=== PATIENT | male | born 1960 | race Caucasian/White ===

== ENCOUNTER 2020-10-04 11:10 | Emergency (ER) | payer MEDICARE, MEDICAID, SELFPAY ==
[2020-10-04 11:11] VITALS: BP 211/117; PULSE 83; RESP 21; TEMP 36.5; O2SAT 98; BMI 28.8
--- NOTE | 2020-10-04 11:13 | RAD_ITS ---
STUDY: X-RAY CHEST REASON FOR EXAM: Male, 59 years old. NEURO DEFICIT, STROKE TECHNIQUE: Single AP portable view of the chest. COMPARISON: 12/31/2013 FINDINGS: The lungs are clear and expanded. There is no demonstrated pleural abnormality. Normal size heart. Normal mediastinum and timothy. Normal visualized pulmonary arteries. Normal visualized aortic arch and descending thoracic aorta. Normal visualized thoracic spine. Normal visualized ribs, clavicles, and shoulders. There is no demonstrated abnormality of the visualized soft tissue structures of the upper abdomen. RAD/Chest 1 View IMPRESSION: Normal x-ray examination of the chest. Electronically Signed: Kyler Friend DO at 12:19 EST Tel , Service support ,
--- NOTE | 2020-10-04 11:13 | EKG12_ITS ---
Test Reason : STROKE Blood Pressure : / mmHG Vent. Rate : 077 BPM Atrial Rate : 077 BPM P-R Int : 142 ms QRS Dur : 090 ms QT Int : 402 ms P-R-T Axes : 042 063 067 degrees QTc Int : 454 ms Normal sinus rhythm Normal ECG Confirmed by NATALIE DURÁN, MATT ([id number]), newspaper or periodical editor [employer] ([id number]) on 10/07/2020 10:32:26 AM Referred By: ZAKIA Confirmed By:MATT ESTRADA MD
--- NOTE | 2020-10-04 11:13 | CT_ITS ---
STUDY: CT HEAD STROKE PROTOCOL W/O CONTRAST INJECTION REASON FOR EXAM: Male, 59 years old. CVA, RT SIDED WEAKNESS, APHASIA, HTN RADIATION DOSAGE (If Supplied By Facility): CTDIvol = ( 44.99 ) mGy, DLP = ( 796.11 ) mGycm TECHNIQUE: Transaxial CT imaging of the brain was performed without administration of intravenous contrast material. Individualized dose optimization techniques were used for this CT. COMPARISON: No relevant priors. FINDINGS: Acute intraparenchymal hemorrhage in the region of the left basal ganglia measuring 3.3 x 2.1 cm. No evidence of significant mass effect or midline shift at this time. Surrounding parenchymal edema is noted. No evidence of uncal herniation. Otherwise, moderate chronic emotional changes of the brain with chronic microvascular ischemic change. CT/STROKE Brain/Head without Cont IMPRESSION: Acute area of intraparenchymal hemorrhage in the left basal ganglia as above. No evidence of mass effect or midline shift. Remainder as above. N.B. : The above information has been verbally conveyed by Kyler Friend DO to Katiana Jara MD, on 10/04/2020 11:30:27 (ET). Electronically Signed: Kyler Friend DO at 11:32 EST Tel , Service support ,
--- NOTE | 2020-10-04 11:18 | ED.DCSUM_ITS ---
History of Present Illness Chief Complaint: Neuro S/Sx Informant: Family, Manager Business Planning Onset: Today Narrative: Patient presents via EMS for stroke symptoms. Patient reportedly was in the bathroom when he yelled out for his son. When the son arrived he noted that the patient had difficulty speaking and was not using his right side. He was lowered to the ground. Daughter who was at bedside states that as far she knows he was last seen normal last evening. He has a history of throat cancer currently in remission. He is a history of hepatitis C and hypertension. Daughter states he has not been taking his blood pressure medications for quite some time. - Past Medical History (1) Hypertension Status: Chronic (2) Hepatitis C Status: Chronic Past Medical History - Allergies and Home Meds Allergies/Adverse Reactions: Allergies No Known Allergies Allergy (Verified 10/04/20 11:11) Primary Care Physician: Care Physician,No Primary [Primary Care Provider] - Surgical History: no surgical history Smoking Status: Current every day smoker Review of Systems ROS: Unable to Obtain STROKE General: Well nourished, Well developed, Unkempt ENT: Moist mucous membranes Neck: Supple Cardiovascular: Regular rate, Regular rhythm Respiratory: No distress, CTA bilaterally Abdomen: Soft, Nontender Neurological: Alert, - - Patient does have right-sided facial droop noted. Right arm and right leg are flaccid. He is unable to follow commands to squeeze hands. He is alert and looking about the room. Diagnostic/Tx/Re-eval Impressions Brain CT 10/04/20 11:13 IMPRESSION: Acute area of intraparenchymal hemorrhage in the left basal ganglia as above. No evidence of mass effect or midline shift. Remainder as above. N.B. : The above information has been verbally conveyed by Kyler Friend DO to Katiana Jara MD, on 10/04/2020 11:30:27 (ET). Electronically Signed: Kyler Friend DO at 11:32 EST Tel , Service support , 10/04/20 11:13 Chest 1 View [RAD] Stat STROKE Brain/Head without Cont [CT] Stat Laboratory Results 10/04/20 10/04/20 11:00 11:00 WBC 7.4 RBC 4.68 Hgb 14.6 Hct 42.1 MCV 90.0 MCH 31.2 MCHC 34.7 RDW Std Deviation 42.2 RDW Coeff of Terell 12.8 MPV 13.5 H Immature Gran % (Auto) 0.500 Neut % (Auto) 61.5 Lymph % (Auto) 23.8 [place] % (Auto) 8.7 Eos % (Auto) 5.1 H Baso % (Auto) 0.4 Absolute Neuts (auto) 4.6 Absolute Lymphs (auto) 1.77 Nucleated RBC % 0 PT 14.2 INR 1.2 APTT 45.6 H - EKG Initial EKG Interpretation: Sinus Rhythm - Sinus at 77 with no acute ischemia. - Medical Decision Making Stroke Team Activated: Yes IV Alteplase (t-PA) Administered: No - Hemorrhagic stroke Patient was met in the ambulance bay and quick evaluation was undertaken. Patient was sent immediately to CT scan. CT does reveal an approximately 3 x 1.8 cm bleed in the left parietal parenchyma. Lateral ventricles appear open at this time. Patient's blood pressure is currently 211/117 and labetalol has been ordered. [facility] neurologist evaluated the patient briefly on the computer. When I told her the patient was a hemorrhagic stroke she did immediately accept patient for transfer. Daughter at bedside agreed for transport to [facility]. Due to weather no air transportation is available. Ground crew is currently in route for critical care transport. Patient was given labetalol for blood pressure most recent systolic blood pressure was in the 170s. Critical care time (excluding procedures): 30-74 minutes ED Disposition - Plan for ED Patient: Disposition: [facility] Diagnosis: Hemorrhagic stroke Referrals: Care Physician,No Primary [Primary Care Provider] -
[2020-10-04] MEDS: Labetalol (Prefilled) 20 MG/4 ML IV (11:23)
[2020-10-04 11:25] VITALS: O2SAT 99
[2020-10-04 11:25] LABS: Absolute Lymphocyte Count 1.77 X10^3/uL (0.83-4.51); Absolute Neutrophil Count 4.6 X10^3/uL (2.0-7.7); Basophil# 0.03 X10^3/uL; Basophil% 0.4 % (0-1); Eosinophil# 0.38 X10^3/uL; Eosinophils% 5.1 % (0-5); Hematocrit 42.1 % (40-54); Hemoglobin 14.6 g/dL (13.0-16.5); Lymphocyte # 1.77 X10^3/ul (4.0); Lymphocyte % 23.8 % (19-41); Mean Corp Hgb Conc 34.7 g/dL (32-36); Mean Corpuscular Hgb 31.2 pg (27.0-32.0); Mean Platelet Vol. 13.5 fl (6.2-12.0); Monocyte# 0.65 X10^3/uL; Monocyte% 8.7 % (0-10); NRBC Flagged by Analyzer 0 % (0-5); Neutrophil # 4.56 X10^3/uL (2.7-7.7); Neutrophil % 61.5 % (47-70); POSITIVE COUNT YES; RBC Distribution Width CV 12.8 % (11.6-14.6); RBC Distribution Width SD 42.2 fl (35.1-43.9); Red Blood Count 4.68 M/mm3 (4.6-6.2); White Blood Count 7.4 K/mm3 (4.4-11.0)
[2020-10-04 11:31] LABS: Differential Indicated SCAN CRITERIA MET
[2020-10-04 11:32] VITALS: BP 180/101; PULSE 72; RESP 21; O2SAT 99
[2020-10-04 11:32] LABS: Platelet Count 49 K/mm3 (150-450)
[2020-10-04 11:33] LABS: International Normalized Ratio 1.2; Partial Thromboplast Time 45.6 Seconds (24.1-36.2); Prothrombin Time (Protime)PT. 14.2 SECONDS (11.7-14.9)
[2020-10-04 11:41] LABS: Anion Gap 6 (5-15); BUN 23 mg/dL (7-18); BUN/Creat Ratio 21.1 RATIO (10-20); Calcium,Total 8.9 mg/dL (8.5-10.1); Chloride 105 mmol/L (98-107); Creatinine, Serum 1.09 mg/dL (0.70-1.30); EST Glomerular Filtration Rate 73 mL/min (>60); Est Glom Filt Rate - Afr Amer 89 mL/min (>60); Estimated Creatinine Clearance 76.76 ml/min; Glucose 84 mg/dL (74-106); Potassium 3.7 mmol/L (3.5-5.1); Sodium Level 137 mmol/L (136-145)
[2020-10-04] MEDS: hydrALAZINE 20 MG/ML Vial IV ×2 (11:43→11:56)
[2020-10-04 11:46] LABS: Differential Comment SCANNED; Platelet Estimate MKD DEC (ADEQ); Platelet Morphology LARGE
[2020-10-04 11:51] VITALS: O2SAT 99
[2020-10-04 12:02] VITALS: BP 168/106; PULSE 76; RESP 18; O2SAT 100
[2020-10-04 12:13] VITALS: BP 152/86; BP 168/106; PULSE 75; PULSE 76; RESP 16; RESP 17; O2SAT 99
[2020-10-04 12:26] VITALS: BMI 28.8
--- NOTE | 2020-10-04 12:37 | ED.RN ---
No report needed per the [facility] stroke line.
[2020-10-05 13:37] LABS: Pathologist Review Reviewed
== END 2020-10-04 12:26 | disposition short-term general hospital (02) ==
PROVIDERS: Emergency Provider Emergency Medicine
DX: I61.6 Nontraumatic intracerebral hemorrhage, multiple localized (principal); F17.200 Nicotine dependence, unspecified, uncomplicated
CPT/HCPCS: 70450; 71045; 80048; 84484; 85025; 85610; 85730; 93005; 99285; J7030; A4216

== ENCOUNTER 2020-10-21 10:00 | Outpatient (RCR) | payer MEDICARE, MEDICAID, SELFPAY ==
--- NOTE | 2020-10-16 12:48 | HP.OTEVAL_ITS ---
Patient's Visit Information AGUSTIN BARCLAY Jr. is a 59 year old M, referred to Occupational Therapy by TENISHA PADILLA, with a diagnosis of CVA. Date of Evaluation: 10/15/20 Occupational Therapist: Callie Whelan, RAF/Cynthia, CHT - Subjective This 59 year old male was seen for OT eval with dx of CVA. 2019 pt suffered a CVA. Pt states pt lost hearing during episode- lost communication and sensation on right side. pts states he spent 4 days in Hospital in [place]. pt has gained momory, and LE strength. pts states he goes from crying to being angery. pt is on disability for about 5 years due to throat cancer. pt is right handed. pt and family lives in two story home with first floor set-up. steps to get in home with hand rails. pt has bath and pt is ind. with ADLs bathing and dressing, does grooming. pts states pt sleeps during the day and up at night- pts is home with him is currently not w orking. pts states pt is cooking and doing with supervision due to frquency of dropping objects. Wifes concerns are with hearing and return of pts strength for pt to return to IND and so she doesnt have to supervise him during ADLs and IADLS. - ADLs Miscellaneous: Use cell phone, Unlock front door, Open medication bottle, Handle money (change), Hold change, Open envelope, Write, Shuffle cards, Open doors/Including car door, Operate spray bottle - Strength Shoulder: right 4/5 left 5/5 Elbow: right 4/5 left 5/5 Forearm: right 4/5 left 5/5 Weir Fisherman: right 40# left 70# Lateral Pinch: right 12# left 14# Tripod Pinch: right 8# left 10# - Sensation Stereognosis: Normal - Right, Normal - Left Kinesthesia: Abnormal - Right, Normal - Left Proprioception: Abnormal - Right, Normal - Left - Nine Hole Peg Right: 48.31 Left: 28.66 Comments: limited right - In-Hand Manipulation Finger to Palm Translation: Moderate - Right, Normal - Left Palm to Finger Translation: Moderate - Right, Normal - Left Shift: Moderate - Right, Normal - Left - DASH-Disabilities of Arm, Shoulder& Hand DASH Sum: 18 - Quick DASH-Disab of Arm,Shoulder& Hand Quick DASH Score: 68.3325 - Goals Goal:: Pt will demo a increase in MMT of right UE to 5/5 to increase pts ind with ADLs and IADLs by d.c. pt will demo a increase in right sales floor team leader strength to 65# or greater to increase pts ind. with ADLs and IADLS by d/c Goal:: pt will demo the ability to manipulate fasteners ind. and manipulate coins in and out of hand ind. by d.c. pt will demo the ability to write name legibly 4/5 trials by d/c Goal:: pt and family will demo understanding of sensory stimulation to increase pts feeling/sensation of right side of his body by end of 3rd visit. - Rehabilitation General Assessment: pt demo with a weakness in right UE limiting functional strength that limits pts ind with ADls and IADLS. Pt would benefit from skilled OT services 2x week for 4 weeks to increase pts functionals strength to return to PLOF. Today theapist used as speaker for pt as he is not verbalizing and writing as pt lost hearing from stroke. Therapist ed. pt and pts on sensory stimulation to right side of body to encourage return of rigt sided sensation. both pt and pts agree to POC. Rehabilitation Potential: Good - Anticipated Interventions Strengthening, Sensory Retraining, Ergonomic Education, Neuro Reeducation, Sensory Stimulation, Caregiver Training, Home Program - Visit Plan Frequency: 2x /Week Duration: 4 Weeks General Plan: initiate PRE with gym eq. and free wts. ed, in HEP TEXT: Thank you for the opportunity to evaluate your patient. For Medicare and Medicare HMO plans, please review the plan of care and approve it. It will need to be FAXED BACK to us at [phone] for Medicare purposes. Please let me know if there are questions or concerns regarding this plan of care. Physician Signature: Date:
--- NOTE | 2020-10-21 09:54 | HP.PTEVAL ---
Patient's Visit Information AGUSTIN BARCLAY Jr. is a 59 year old M referred to Physical Therapy by TENISHA PADILLA with a diagnosis of L BG ICH. Date of Evaluation: 10/21/20 Physical Therapist: Denis Hickey, SUZANNE, OCS, CSCS - Visit Plan Frequency: 2x /Week Duration: 4-6 Weeks Plan: pt cannot hear due to his stroke adn will need visual demonstrations or written instructions for each activity in therapy. 2x/week for 4 weeks to work on Stability with gait due to R proprioception deficits from stroke. Walk outdoors and on uneven surfaces as able , pt is aware that he will be doing this and should dress appropriately, also may do foam balance and ec balance and gait indoors. Recommended based on speech therapy instruction to see ENT with floorwalker to see if speech therapy would be appropriate adn written info given for to ask doctor when he sees them next week. - Subjective present. Woke up 2.5 weeks ago on Monday morning and son was present. walking to bathroom he called for Son and pt sunk to floor. Needed help to get to bathroom. Seemed paralyzed on right side. Called 911, Went to ER and was nonresponsive in hospital until showed up and then wanted to go home. Ambulance to [facility] and went to ICU for 3 days, then to brain leung and home on Thanks day . Started to get feeling adn movement back in R arm and leg at that time. He has lost his hearing and cannot hear much but she thinks it is slightly improving. Walked out of hospital on that . Currently he is doing good moving around, taking bath by himself, bathroom by himself. Main problem is cannot hear, he has started talking again. Communication is main problem. says he is 85% back to normal in mobility. He has always had a limp. He loves to walk and just is not as fast as he used to be. Has steps at home but does not need to do them and has not done them. Has some steps into house with rail and does them without a problem. He is on disability 6 years from throat cancer. Now in a remission. Spends day making canes, working around house, makes handes for knives. Has started in the last few days getting interested in that. goes with him on short walks which he can do but does not let him take dog on long one hour walks which is typical for him. gives all this info as he is not verbally communicative. No more foot dragging which was happening. - Objective Pt is quiet adn nonverbal today, communicates with him loudly and he pays attention. He follows my directions when demonstrated but cannot seem to hear me even when I talk loudly. Walks back 250 feet to [facility] room I with slight L limp and slow but steady. says no falls and no AD needed. Trasnfers I. Steps reciprocal with one rail I. foam stance is challenging for patient but romberg is 30 eo adn ec. Need to demonstrate all items on FGA to get him to do them due to hearing but he does score well on this test but 4 to 5 points low for his age. LE AROM WFL, some tightness B in HS and quads but symmetrical. Sensation seems to deficit on R side vs L as best I can communicate with him. Strength is 4 on both LE R and L knees and hips except ankles which is 4- R and 4 on L. Able to heel raise and walk on heels strengthwise easily. Coordination hard to test due to communication deficit. reflexes 2/3 patella and achilles. - Balance Scores Functional Gait Assessment Score: 24 % Disability: 20.0000 - Goals Goal 1:: FGA to diminish fall risk Goal Time Frame: 4-6 Weeks Goal 2:: Walk dog outside for 30 minutes around [place] and safely. Goal Time Frame: 4-6 Weeks - Rehabilitation Potential Physical Therapy Diagnosis: CVA Rehabilitation Potential: Fair - Anticipated Interventions Patient/Client Instruction: Educate patient on: Condition, Plan of Care For the Purpose of:: To increase tolerance to activity/condition/position, To improve gait and locomotor functions Therapeutic Exercise to Include: Balance training, Gait and locomotor training For the Purpose of:: To increase tolerance to activity/condition/position, To improve gait and locomotor functions Thank you for the opportunity to evaluate your patient. For Medicare and Medicare HMO plans, please review the plan of care and approve it. It will need to be FAXED BACK to us at [phone] for Medicare purposes. For Medicare only, by signing this I certify the plan of care. Please let me know if there are questions or concerns regarding this plan of care. Physician Signature: Date:
--- NOTE | 2020-11-16 09:13 | HP.OTDCNRP_ITS ---
AGUSTIN Marielos BARCLAY Jr. was seen in my office for initial evaluation on 10/15/20. The following Plan of Care was established for this patient: Initial Frequency: 2x /Week Initial Duration: 4 Weeks Plan: cont POC Anticipated Interventions: Strengthening, Sensory Retraining, Ergonomic E ducation, Neuro Reeducation, Sensory Stimulation, Caregiver Training, Home Program This patient was last seen in our office 10/21/20. Pertinent comments regarding their Occupational therapy will appear below: pt was seen for 2 OT visits followed with three No Show apts. pt d/c at this time due to non attendance. At this point I will be discontinuing this patient from occupational therapy. I would be happy to see this patient again in the future if found appropriate by the physician. Thank you! Callie Whelan, OTR/L, CHT
== END 2020-10-21 19:00 | disposition home or self-care (01) ==
LOC: OT 10:00
DX: I61.9 Nontraumatic intracerebral hemorrhage, unspecified (principal)
CPT/HCPCS: 97110; 97163; 97166

== ENCOUNTER 2021-08-23 17:44 | Emergency (ER) | payer MEDICARE, MEDICAID, SELFPAY ==
[2021-08-23 17:45] VITALS: BP 182/116; PULSE 85; RESP 16; TEMP 36.2; O2SAT 99; BMI 26.3
[2021-08-23] MEDS: Diphth,Pertuss(Acell),Tet Vac 0.5 ML Vial IM (19:21)
[2021-08-23] MEDS: Amox/Clavulanate 875 MG Tablet PO (19:21)
--- NOTE | 2021-08-23 19:22 | CM.ED ---
CHRISSIE Note Referral Source: Case Find Referral Reason: No Primary Care Physicans CHRISSIE reviewed chart and noted that patient had no primary care physician. SW provided patient with [facility] Physician Directory. No further concerns or complaints voiced. Harriet ORO
--- NOTE | 2021-08-23 19:29 | EX.ED.DYSGE1 ---
HPI History of Present Illness Chief Complaint: Bite Narrative Narrative: Patient is a 60-year-old male brought in secondary to dog bite to his bilateral forearm. The patient had a previous stroke and cannot speak. His father reports that the dog bite occurred from his own dog and that this occurred approximately 2 hours prior to arrival. They state his tetanus status is not updated and secondary to the dog bite they have concerned he will need tetanus as well as prophylactic antibiotics and presents for evaluation [facility] Medical History CVA (cerebral vascular accident) Home Medications NK 10/04/20 [History Last Taken Unknown] amoxicillin-pot clavulanate [Augmentin] 1 tab PO BID #20 tab 08/23/21 [Rx Last Taken Unknown] Allergy/AdvReac Type Severity Reaction Status Date / Time No Known Allergies Allergy Verified 08/23/21 19:25 Social History Smoking Status: Current every day smoker tobacco type: cigarettes ROS ROS ED Constitutional Constitutional ED: Denies chills or fever(s) ENT ENT ED: Reports sore throat Cardiovascular Cardiovascular: Denies chest pain Respiratory/Chest Respiratory/Chest: Denies cough or dyspnea Gastrointestinal Gastrointestinal: Denies abdominal pain, diarrhea, nausea or vomiting Genitourinary Genitourinary ED: Denies dysuria Musculoskeletal Musculoskeletal: Denies myalgias Integumentary Reports other Details: Positive dog bite Neurologic Neurologic: Denies paresthesias Hematologic/Lymphatic Hematologic/Lymphatic: Denies easy bleeding or easy bruising EXAM Physical Exam Const Vital Signs: 08/23/21 17:45 08/23/21 20:04 Temperature 97.1 F L Temperature Source Temporal Pulse Rate 85 72 Respiratory Rate 16 Blood Pressure 182/116 H 201/117 H Blood Pressure Mean 138 Pulse Ox 99 Oxygen Delivery Method Room Air Positive well nourished and well developed General Appearance ED: well developed Eyes PERRL and EOMs intact bilaterally Neck supple Resp normal respiratory effort and clear to auscultation bilaterally Cardio regular rate and regular rhythm Extremity Extremity Narrative: Bilateral upper extremities are neurovascularly intact; AIN/PIN are intact and normal. To the dorsal aspect of the distal forearm bilaterally there is 1/2 cm puncture wound consistent with dog bite. There is minimal ooze of blood and no foreign body. There is mild soft tissue swelling at the sites without secondary changes to suggest overt infection. No physical exam findings to suggest ligamentous or tendon damage. Neuro CN's II-XII intact bilaterally Sensorium / Orientation: alert Motor Exam: strength 5/5 throughout Psych mental status grossly normal Skin Skin Narrative: Soft tissue changes to the bilateral forearms as documented above MDM MDM MDM Narrative Medical decision making narrative: Patient presented to the ER with dog bites to his right and left forearm. The dog bites are small in nature and showed no signs of acute secondary infection or ligamentous or tendon damage. Therefore there is no need for imaging or laboratory studies. Also as the dog is his own there is no need for rabies prophylaxis. Patient has tetanus status updated and was started on Augmentin and is otherwise safe for discharge Discharge Plan Triage Chief Complaint: Bite ED Provider: Samir Guido Dx/Rx/DC Orders Clinical Impression: Dog bite Instructions: ED Dog Bite Prescriptions: New amoxicillin-pot clavulanate [Augmentin] 875-125 mg tablet 1 tab PO BID Qty: 20 RF: 0 No Action NK RF: 0 Primary Care Provider: Care Physician,No Primary Referrals: Lisa Barnes MD [STAFF PHYSICIAN] - 3-5 Days if not improving Care Physician,No Primary [Primary Care Provider] - Disposition Disposition: Home, Self Care Discharge Date/Time: 08/23/21 20:15
[2021-08-23] MEDS: COVID-19 VAC,AD26(JANSSEN)/PF 0.5 ML SYRINGE IM (20:01)
[2021-08-23 20:04] VITALS: BP 201/117; PULSE 72
[2021-08-23] MEDS: cloNIDine HCl 0.2 MG Tablet PO (20:14)
--- NOTE | 2021-08-23 20:15 | ED.RN ---
no reaction to COVID vaccine noted in ED.
--- NOTE | 2021-08-25 02:40 | ED.RN ---
inderjit HRO requesting address gave to registration for police report
== END 2021-08-23 20:15 | disposition home or self-care (01) ==
PROVIDERS: Emergency Provider Emergency Medicine
DX: S51.852A Open bite of left forearm, initial encounter (principal); S51.851A Open bite of right forearm, initial encounter; F17.210 Nicotine dependence, cigarettes, uncomplicated; W54.0XXA Bitten by dog, initial encounter; Z86.73 Personal history of transient ischemic attack (TIA), and cerebral infarction without residual deficits; Z23 Encounter for immunization
CPT/HCPCS: 90471; 90715; 91303; 99283

== ENCOUNTER 2021-08-25 22:25 | Emergency (ER) | payer MEDICARE, MEDICAID, SELFPAY ==
[2021-08-25 22:26] VITALS: BP 138/90; PULSE 74; RESP 18; TEMP 36.1; O2SAT 95; BMI 25.0
== END 2021-08-25 22:52 | disposition left against medical advice (07) ==
LOC: ED 23:03
DX: Z53.21 Procedure and treatment not carried out due to patient leaving prior to being seen by health care provider (principal)

== ENCOUNTER → 2022-07-04 | Outpatient (CLI) | payer MEDICARE, MEDICAID, SELFPAY ==
[2022-07-04 17:55] LABS: Absolute Lymphocyte Count 1.67 X10^3/uL (0.83-4.51); Absolute Neutrophil Count 3.5 X10^3/uL (2.0-7.7); Basophil# 0.03 X10^3/uL; Basophil% 0.5 % (0-1); Eosinophil# 0.15 X10^3/uL; Eosinophils% 2.6 % (0-5); Hematocrit 43.1 % (40-54); Hemoglobin 14.6 g/dL (13.0-16.5); Lymphocyte # 1.67 X10^3/ul (0.83-4.51); Lymphocyte % 28.7 % (19-41); Mean Corp Hgb Conc 33.9 g/dL (32-36); Mean Corpuscular Volume 91.5 fL (80-94); Mean Platelet Vol. 14.7 fl (6.2-12.0); Monocyte# 0.48 X10^3/uL; Monocyte% 8.3 % (0-10); NRBC Flagged by Analyzer 0 % (0-5); Neutrophil # 3.45 X10^3/uL (2.7-7.7); Neutrophil % 59.4 % (47-70); POSITIVE COUNT YES; RBC Distribution Width SD 43.7 fl (35.1-43.9); Red Blood Count 4.71 M/mm3 (4.6-6.2); White Blood Count 5.8 K/mm3 (4.4-11.0)
[2022-07-04 18:17] LABS: Anion Gap 5 (5-15); BUN 26 mg/dL (7-18); Calcium,Total 9.1 mg/dL (8.5-10.1); Chloride 106 mmol/L (98-107); Creatinine, Serum 1.18 mg/dL (0.70-1.30); EST Glomerular Filtration Rate 66 mL/min (>60); Est Glom Filt Rate - Afr Amer 80 mL/min (>60); Glucose 102 mg/dL (74-106); PSA,Total - Annual Screen 0.86 ng/mL (0.00-4.00); Potassium 4.4 mmol/L (3.5-5.1); Sodium Level 138 mmol/L (136-145)
[2022-07-04 18:22] LABS: Differential Indicated SCAN CRITERIA MET; Platelet Count 50 K/mm3 (150-450)
[2022-07-04 18:31] LABS: Anisocytosis RARE; Macrocytosis RARE; Platelet Estimate MKD DEC (ADEQ); Red Cell Morphology N CHROM NORMAL (NORM C&C)
[2022-07-06 10:17] LABS: Pathologist Review Reviewed
== END | disposition home or self-care (01) ==
LOC: MFPLAB 16:35
PROVIDERS: Visit Provider Family Medicine
DX: Z00.00 Encounter for general adult medical examination without abnormal findings (principal); N41.9 Inflammatory disease of prostate, unspecified; Z12.5 Encounter for screening for malignant neoplasm of prostate
CPT/HCPCS: 36415; 80048; 84153; 85025; G0103

== ENCOUNTER → 2022-07-21 | Outpatient (CLI) | payer MEDICARE, MEDICAID, SELFPAY ==
[2022-07-21] VITALS (10 sets, daily range): BP systolic 128–194; BP diastolic 60–108; PULSE 51–64; RESP 14–21; TEMP 36.4; O2SAT 97–100; BMI 24.7
--- NOTE | 2022-07-21 | BMB_PTH ---
PATIENT: AGUSTIN BARCLAY Jr. LOC: CT U#:[id number] AGE/SX: 61/M ROOM: RE07/21/[address]: Dr. Kita Barboza MD : 1960 BED: DIS: 07/21/2022 SPEC #: [id number] RECD: 07/21/22 10:40 STATUS: BRENDEN MAREN #: [id number] AMALIA: 07/21/22 00:[address]: Kita Barboza DEPT: BONE MARROW RECD BY: Vera Beyer ENTERED: 07/21/22 10:41 SP TYPE: BMB CATERINA DR: Rosalinda Primary Care Phys Tissues: A - Bone marrow, NOS B - Bone marrow, NOS C - Bone marrow, NOS Procedures: Decalcification bone/plaque Bone Marrow Aspiration Bone Marrow Core Biopsy Iron Stain Bone Marrow HEADER OPERATION: Bone marrow biopsy and aspiration, right hip PRE-OP DIAGNOSIS: Thrombocytopenia TISSUE SUBMITTED: A - Core, B - Clot, C - Smears, and send outs (flow, cytogenetics and MDS) BONE MARROW DIAGNOSIS Bone marrow core, clot and aspirate smears: Negative for involvement by leukemia or lymphoma. See comment. Margaux 07/25/2022 COMMENT Bone marrow core and clot biopsy are nondiagnostic. Aspirate smears show hemodilution and show erythroid and myeloid cells and megakaryocytes. Significant dysplastic changes are not seen. Flow cytometry study from [facility] shows no evidence of acute leukemia or increased blasts. No evidence of an abnormal myeloid population. Abnormities associated with myelodysplasia and myeloproliferative neoplasms are absent. No evidence of B-cell lymphoma or atypical T-cell population. No evidence of monocytosis. The complete report is viewable in patient?s EMR. Cytogenetic studies are pending at this time. Clinical correlation and appropriate follow up are necessary. BONE MARROW STUDY Slides are reviewed. CBC DATE: 07/21/2022 WBC 6.5K; RBC 4.85; HGB 14.8; HCT 43.7; MCV 90.1; RDW 12.8; PLTS 59,000 SEGS 54.6%; LYMPHS 32.6%; MONOS 8.8%; EOS 3.5%; BASOS 0.3% PERIPHERAL SMEAR: Submitted. RBC: Normocytic and normochromic. WBC: Unremarkable. The WBC count is compatible to as reported above. PLTS: Thrombocytopenia. BONE MARROW ASPIRATE DIFFERENTIAL: 200 cell count. Blasts % (normal 0-2): 0 Promyelocytes % (normal 1-5): 0 Myelocytes and metamyelocytes % (normal 17-41): 15 Bands and Segs % (normal 15-32): 52 Eos % (normal 1-6): 5 Basos % (normal 0-1): 0 Monocytes % (normal 0-4): 3 Erythroid Precursors % (normal 17-35): 13 Lymphocytes % (normal 7-13): 12 Plasma Cells % (normal 0-2): 0 ASPIRATE FINDINGS: Site: Not specified Aspicular, Cellular M/E ratio: 5.5 (Normal 1.5-4.0) Megakaryocytes: Present and normal morphology. Erythropoiesis: Normoblastic. Granulopoiesis: Progressive and unremarkable. Comment: The smears show hemodilution. Above may not be accurate due to hemodilution. Significant dysplastic changes are not seen. CORE BIOPSY FINDINGS: Site: Not specified Comment: No bone marrow core or hematopoietic elements are noted. ASPIRATE CLOT FINDINGS: Site: Not specified Comment: The specimen entirely consists peripheral blood. Hematopoietic cells are not seen. Minute fragments of cortical bone is noted. SPECIAL STAINS WITH MATCHED CONTROLS: Iron: Absent Reticulin: Not applicable. PAS: Highlights myeloid cells and megakaryocytes. BONE MARROW GROSS A - Received is a container labeled with the patient's name and designated bone marrow. The specimen consists of a scant amount of soft tissue. The specimen is totally submitted for cell block preparation. B - Received labeled with the patient's name and designated bone marrow is a specimen that consists of approximately 8 ml of bloody fluid that on filtration yields multiple minute fragments of blood clots measuring in aggregate 3 x 2.5 x 0.2 cm. The specimen is totally submitted in one cassette. C - Also received are 15 unstained and 1 peripheral stained slides. The unstained slides are submitted for appropriate staining. Also received is one green top tube which is sent to our reference lab for flow, cytogenetics and MDS. / SJ:hiral 07/21/2022 TC:5 CPT: 51886, 86491, 07858 x2, 93132 x1, 65595 ADDENDUM ADDENDUM ADDENDUM ADDENDUM ADDENDUM ADDENDUM ADDENDUM ADDENDUM ADDENDUM ADDENDUM ADDENDUM ADDENDUM ADDENDUM ADDENDUM ADDENDUM ADDENDUM 08/02/2022 09:21 ADDENDUM 08/02/2022 09:21 ADDENDUM 08/02/2022 09:21 ADDENDUM 08/02/2022 09:21 ADDENDUM 08/02/2022 09:21 CYTOGENETICS REPORT FROM [facility] INTERPRETATION: A normal male chromosome complement was observed in twenty metaphases analyzed. 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 No evidence of deletion of 5q or monosomy 5. 2. No evidence of monosomy 7 or deletion of 7q. 3. No evidence of trisomy 8 (+8). 4. No evidence of deletion of 20q12. Please see complete report in e-chart or EMR
--- NOTE | 2022-07-21 08:21 | CT_ITS ---
PROCEDURE: CT GUIDED BONE marrow biopsy and aspiration. DATE: 07/21/2022. INDICATION: Male, 61 years old. Thrombocytopenia. PHYSICIAN: Asher Sawyer M.D. RADIATION DOSAGE (If Supplied By Facility): CTDIvol = ( 15 ) mGy, DLP = ( 238.84 ) mGycm. Individualized dose optimization techniques were utilized. PROCEDURE: The risks, benefits, and alternatives to the procedure were explained to the patient. The specific risk of hemorrhage requiring further treatment or intervention was detailed and accepted. Follow-up instructions were discussed with the patient as well. Written informed consent was obtained. The patient was brought into the CT suite and placed in the prone position. . An appropriate entry site was identified. The overlying skin was prepped and draped in the usual sterile fashion. 1% lidocaine was administered subcutaneously for local anesthesia. Conscious sedation was performed. The patient received 2 mg of VERSED and 50 mcg of FENTANYL intravenously. Conscious sedation was started at 9:32 AM and terminated at 9:48 AM. The patient was independently monitored by the department nurse. Under CT guidance, a bone marrow biopsy and aspiration of the posterior right iliac bone were performed utilizing an 11-gauge bone marrow biopsy needle system. The specimens were then placed in the appropriate fluid and transported to the laboratory for analysis. Hemostasis was obtained. The patient tolerated the procedure well without immediate complications. CT/Biopsy/Inj or Needle Placement IMPRESSION: Successful CT guided bone marrow biopsy and bone marrow aspiration of the posterior right iliac bone, as described above. Conscious sedation protocol was followed. Electronically Signed: Asher Sawyer MD at 10:05 EDT ,
[2022-07-21 08:27] LABS: Absolute Lymphocyte Count 2.12 X10^3/uL (0.83-4.51); Absolute Neutrophil Count 3.6 X10^3/uL (2.0-7.7); Basophil# 0.02 X10^3/uL; Basophil% 0.3 % (0-1); Eosinophil# 0.23 X10^3/uL; Eosinophils% 3.5 % (0-5); Hematocrit 43.7 % (40-54); Hemoglobin 14.8 g/dL (13.0-16.5); Lymphocyte # 2.12 X10^3/ul (0.83-4.51); Lymphocyte % 32.6 % (19-41); Mean Corp Hgb Conc 33.9 g/dL (32-36); Mean Corpuscular Hgb 30.5 pg (27.0-32.0); Mean Corpuscular Volume 90.1 fL (80-94); Mean Platelet Vol. 12.4 fl (6.2-12.0); Monocyte# 0.57 X10^3/uL; Monocyte% 8.8 % (0-10); NRBC Flagged by Analyzer 0 % (0-5); Neutrophil # 3.55 X10^3/uL (2.7-7.7); Neutrophil % 54.6 % (47-70); POSITIVE COUNT YES; Platelet Count 59 K/mm3 (150-450); RBC Distribution Width CV 12.8 % (11.6-14.6); RBC Distribution Width SD 41.8 fl (35.1-43.9); Red Blood Count 4.85 M/mm3 (4.6-6.2); White Blood Count 6.5 K/mm3 (4.4-11.0)
[2022-07-21 08:39] LABS: Prothrombin Time (Protime)PT. 13.2 SECONDS (11.7-14.9)
[2022-07-21 08:40] LABS: Partial Thromboplast Time 36.1 Seconds (24.1-36.2)
[2022-07-21] MEDS: fentaNYL 100 MCG/2 ML Ampul IV (09:28)
[2022-07-21] MEDS: Midazolam 2 MG/2 ML Syringe IV ×2 (09:31→09:40)
[2022-07-21] MEDS: Lidocaine 2% (10 ml mdv) 10 ML Vial INFILT (09:32)
== END | disposition home or self-care (01) ==
PROVIDERS: Referring Provider Internal Medicine Hematology & Oncology; Visit Provider Internal Medicine Hematology & Oncology
DX: Z01.812 Encounter for preprocedural laboratory examination (principal); D69.6 Thrombocytopenia, unspecified; R10.11 Right upper quadrant pain
CPT/HCPCS: 38222; 36415; 77012; 85025; 85610; 85730; 88305; 88311; 88313; 99156; J7050; A4216

== ENCOUNTER → 2023-05-05 | Outpatient (CLI) | payer MEDICARE, MEDICAID, SELFPAY ==
[2023-05-05 15:32] LABS: Absolute Neutrophil Count 4.4 X10^3/uL (2.0-7.7); Basophil# 0.03 X10^3/uL; Basophil% 0.4 % (0-1); Eosinophil# 0.16 X10^3/uL; Eosinophils% 2.3 % (0-5); Hematocrit 45.6 % (40-54); Lymphocyte % 24.5 % (19-41); Mean Corp Hgb Conc 32.9 g/dL (32-36); Mean Corpuscular Hgb 29.9 pg (27.0-32.0); Mean Corpuscular Volume 90.8 fL (80-94); Mean Platelet Vol. 14.5 fl (6.2-12.0); Monocyte# 0.62 X10^3/uL; Monocyte% 8.9 % (0-10); NRBC Flagged by Analyzer 0 % (0-5); Neutrophil # 4.39 X10^3/uL (2.7-7.7); Neutrophil % 63.5 % (47-70); POSITIVE COUNT YES; Platelet Count 55 K/mm3 (150-450); RBC Distribution Width SD 42.7 fl (35.1-43.9); Red Blood Count 5.02 M/mm3 (4.6-6.2); White Blood Count 6.9 K/mm3 (4.4-11.0)
[2023-05-05 15:47] LABS: ALB/GLOB Ratio 0.8 RATIO (0.9-2.4); AST(SGOT) 18 U/L (15-37); Alanine Aminotransfer ALT/SGPT 38 U/L (16-61); Albumin, Serum 3.4 g/dL (3.2-5.0); Alkaline Phosphatase 61 U/L (45-117); Anion Gap 5 (5-15); BUN 20 mg/dL (7-18); BUN/Creat Ratio 16.5 RATIO (10-20); Calcium,Total 8.7 mg/dL (8.5-10.1); Chloride 108 mmol/L (98-107); Creatinine, Serum 1.21 mg/dL (0.70-1.30); EST Glomerular Filtration Rate 64 mL/min (>60); Est Glom Filt Rate - Afr Amer 78 mL/min (>60); Globulin 4.2 g/dL (2.2-4.2); Glucose 101 mg/dL (74-106); Potassium 4.4 mmol/L (3.5-5.1); Protein, Total 7.6 g/dL (6.4-8.2); Sodium Level 138 mmol/L (136-145)
[2023-05-05 15:59] LABS: Differential Indicated SCAN CRITERIA MET
[2023-05-05 16:31] LABS: Differential Comment SCANNED
[2023-05-08 20:07] LABS: HCV Quant. RNA PCR 194000 IU/mL (.); HCV log 10 5.288 (.)
== END | disposition home or self-care (01) ==
LOC: MFPLAB 12:19
PROVIDERS: PCP Family Medicine; Visit Provider Family Medicine
DX: D69.6 Thrombocytopenia, unspecified (principal); B19.20 Unspecified viral hepatitis C without hepatic coma
CPT/HCPCS: 36415; 80053; 85025; 87522

== ENCOUNTER 2023-06-28 10:15 | Emergency (ER) | payer MEDICARE, MEDICAID, SELFPAY ==
[2023-06-28 10:16] VITALS: BP 183/123; PULSE 81; RESP 14; TEMP 36.6; O2SAT 98
--- NOTE | 2023-06-28 10:28 | EX.ED.DYSGE1 ---
HPI History of Present Illness Chief Complaint: Lower Extremity Injury [facility] Medical History CVA (cerebral vascular accident) Fractures Hypertension Neck fracture Peripheral neuropathy Smoker Throat cancer Thrombocytopenia Home Medications sildenafil 50 mg tablet (Viagra) 50 mg PO DAILY PRN 07/08/22 [History Last Taken Unknown] gabapentin 300 mg capsule 300 mg PO DAILY 07/13/22 [History Last Taken 07/20/22 20:00] lisinopril 40 mg tablet 40 mg PO DAILY 07/13/22 [History Last Taken 07/21/22 07:00] melatonin 3 mg tablet 3 mg PO QHS PRN sleep 07/13/22 [History Last Taken Unknown] Allergy/AdvReac Type Severity Reaction Status Date / Time No Known Allergies Allergy Verified 06/28/23 10:15 Family History Grandmother Hypertension maternal Grandfather Hypertension paternal CVA (cerebral vascular accident) paternal Social History household members: spouse number of children: 5 current occupational status: disabled Smoking Status: Current every day smoker tobacco type: cigarettes Tobacco: How many years used: 30 alcohol intake: current alcohol intake frequency: 3 or more drinks per day Alcohol type: beer and hard liquor substance use type: marijuana EXAM Physical Exam Const Vital Signs: 06/28/23 10:16 Temperature 98 F Temperature Source Temporal Pulse Rate 81 Respiratory Rate 14 Blood Pressure 183/123 H Blood Pressure Mean 143 Pulse Ox 98 Oxygen Delivery Method Room Air [facility] [place] Narrative Medical decision making narrative: HISTORY OF PRESENT ILLNESS: 62-year-old male here with right leg pain. The patient is coming by his father provides majority history given patient's history of stroke. He states there is no fall or trauma however patient complained of right leg pain that started today. No complaint of new focal weakness or loss sensation today. REVIEW OF SYSTEMS: Pertinent positives: Leg pain Pertinent negatives: Fall, new loss of sensation, PHYSICAL EXAM: Nursing triage notes reviewed, Vital signs reviewed Constitutional: please see mdm Lungs: Clear to auscultation, No wheezing or rales. No increased work of breathing, no conversational dyspnea, no accessory muscle use, no nasal flaring. No respiratory distress noted Heart: Regular rate and rhythm, No murmurs, No rubs and No gallops, 2+ distal pulses (radial, femoral, posterior tibial) in all extremities Abdomen: Soft, there is no tenderness, rigidity, rebound or guarding, no obvious peritoneal signs, no palpable pulsatile abdominal masses, no auscultated abdominal bruit : No CVAT Back: No midline step-offs deformities tenderness or rashes noted Extremities: No edema, no obvious joint erythema, edema, intact range of motion in ankle knee and hip. TTP with internal hip rotation and hip flexion. No TTP over greater trochanter. Compartments are soft. Neuro: Intact sensation L1-S1 dermatomal distributions. Intact 5/5 strength in hip flexion (T12-L3). Knee extension (L2-L4). Ankle dorsiflexion (L4-L5). Ankle plantar flexion (S1). Great toe extension (L5). 2+ patellar and Achilles DTRs. Skin: No rash or lesions noted, no crepitus or bullae noted MEDICAL DECISION MAKING: Chief Complaint: Leg pain External records reviewed: No recent advanced imaging of the involved extremity Factors affecting care: Hypertension, peripheral neuropathy ALL IMAGES (IF OBTAINED) HAVE BEEN PERSONALLY REVIEWED AND INTERPRETED BY MYSELF. MDM Narrative: Patient was hemodynamically stable (hypertension noted), afebrile, nontoxic-appearing. I considered the following differential diagnosis: Fracture, dislocation, bony contusion, septic arthritis, arterial occlusion. Exam consistent right hip pathology with pain with internal rotation and flexion. Obtained x-ray to rule out fracture dislocation of the right hip. X-ray was negative. X-ray was remarkable for evidence of femoral acetabular impingement. This will be treated with NSAIDs and close orthopedic follow-up for evaluation and further management. No clinical evidence of septic arthritis or arterial occlusion at this time. No evidence of fracture or dislocation. The patient and/or family, caregivers express understanding. The patient and/or family, caregivers agrees with the plan. Shared decision making: I will have a discussion with the patient and or visitors regarding risk/benefits of further testing or admission. They will be made aware of of the risk/benefits inherent in this decision they will be given the opportunity to voice understanding. Total critical care time today provided was at least 0 minutes. This excludes separately billable procedures. Critical care time (if documented) is secondary to the patient having high probability of clinically significant/life threatening deterioration in the patient's condition which required my urgent intervention. Radiography Diagnostic Testing: Clinical Impression(s) from Imaging Studies Hip/Pelvis X-Ray 06/28/23 10:51 IMPRESSION: Findings suggestive of a right femoral acetabular impingement. Electronically Signed: Asher Sawyer MD at 11:13 EDT , Discharge Plan Triage Chief Complaint: Lower Extremity Injury ED Provider: Paresh Portillo Dx/Rx/DC Orders Clinical Impression: Femoral acetabular impingement Instructions: ED Hip Strain Prescriptions: No Action sildenafil [Viagra] 50 mg tablet 50 mg PO DAILY PRN Rx Instructions: administer 30 minutes to 4 hours before activity gabapentin 300 mg capsule 300 mg PO DAILY Patient Comments: TAKE 1 CAPSULE BY MOUTH AT BEDTIME FOR MUSCLE SPASMS FROM STROKE lisinopril 40 mg tablet 40 mg PO DAILY Patient Comments: TAKE 1 TABLET BY MOUTH DAILY melatonin 3 mg tablet 3 mg PO QHS PRN (Reason: sleep) Patient Comments: TAKE 1 TABLET AT SUPPER AND AT BEDTIME Primary Care Provider: Sandro Zuniga Referrals: Warren Vieyra DO [Med Staff - Active Staff] - Sandro Zuniga MD [Primary Care Provider] - Activity Restrictions/Additional Instructions: Thank you for trusting us with your care today! Please take Tylenol (2 pills, 650 mg), ibuprofen (2 pills, 400 mg) every 6 hours as needed for pain and fever control. Please return to the emergency department if your symptoms change or worsen. Specifically if develop worsening pain, if you cannot ambulate, if you fall, if you lose consciousness. Please follow with your primary care physician for further outpatient evaluation and management. Disposition Disposition: Home, Self Care
[2023-06-28] MEDS: Oxycodone/Apap 5/325 Tablet PO (10:41)
[2023-06-28] MEDS: Ibuprofen 200 MG Tablet 400 MG PO (10:42)
--- NOTE | 2023-06-28 10:51 | RAD_ITS ---
STUDY: X-RAY - PELVIS AND RIGHT HIP REASON FOR EXAM: Male, 62 years old. Right hip pain TECHNIQUE: 3 views of the pelvis and hip. COMPARISON: None. FINDINGS: There is a non-specific bowel gas pattern. Normal visualized soft tissue structures. Normal bilateral iliac wings, sacroiliac joints and visualized sacrum. Normal bilateral superior and inferior pubic rami. Normal pubic symphysis. Normal bilateral ischial tuberosities. Findings suggestive of right femoral acetabular impingement. Normal acetabulum. There is mild articular joint space narrowing of the hip. RAD/HIP, UNI W/ Pelvis 2-3 Views IMPRESSION: Findings suggestive of a right femoral acetabular impingement. Electronically Signed: Asher Sawyer MD at 11:13 EDT ,
[2023-06-28 11:44] VITALS: BMI 23.3
== END 2023-06-28 11:44 | disposition home or self-care (01) ==
PROVIDERS: Emergency Provider Emergency Medicine; PCP Family Medicine; Visit Provider Emergency Medicine
DX: M25.851 Other specified joint disorders, right hip (principal); F17.210 Nicotine dependence, cigarettes, uncomplicated; F12.90 Cannabis use, unspecified, uncomplicated; Z86.73 Personal history of transient ischemic attack (TIA), and cerebral infarction without residual deficits
CPT/HCPCS: 73502; 99283

== ENCOUNTER 2024-04-19 16:02 | Emergency (ER) | payer MEDICARE, MEDICAID, SELFPAY ==
[2024-04-19 16:04] VITALS: BP 206/116; BP 216/122; PULSE 74; PULSE 75; RESP 14; TEMP 35.7; O2SAT 96; O2SAT 98
--- NOTE | 2024-04-19 16:12 | CT_ITS ---
STUDY: CT BRAIN WITHOUT CONTRAST REASON FOR EXAM: Male, 63 years old. Acute change in mental status RADIATION DOSAGE (If Supplied By Facility): CTDIvol = ( 44.99 ) mGy, DLP = ( 796.11 ) mGycm TECHNIQUE: Transaxial CT imaging of the brain was performed without administration of intravenous contrast material. Individualized dose optimization techniques were used for this CT. COMPARISON: No relevant priors. FINDINGS: Normal soft tissue structures. Normal calvarium. Normal size ventricles and extra-axial spaces for the patient''s age. Bilateral white matter microangiopathic ischemic changes of the cerebral hemispheres. Probable old infarct in the right basal ganglia. Normal thalami. Normal brainstem. Normal cerebellum. There is no intracranial hemorrhage. There are no findings of an acute ischemic infarction. Normal visualized paranasal sinuses. CT/Brain/Head without Contrast IMPRESSION: Age-related and chronic changes of the brain. Electronically Signed: Hussain Calvin DO at 16:58 EDT ,
--- NOTE | 2024-04-19 16:13 | EKG12_ITS ---
Test Reason : NEURO Blood Pressure : / mmHG Vent. Rate : 073 BPM Atrial Rate : 073 BPM P-R Int : 142 ms QRS Dur : 088 ms QT Int : 396 ms P-R-T Axes : 037 053 065 degrees QTc Int : 436 ms Normal sinus rhythm Normal ECG Confirmed by NATALIE DURÁN, MATT ([id number]), editor managing director PATRICIA DE LOS SANTOS ([id number]) on 04/22/2024 8:35:48 AM Referred By: Confirmed By:MATT ESTRADA MD
[2024-04-19 16:22] VITALS: BMI 25.9
[2024-04-19 16:39] LABS: Absolute Lymphocyte Count 1.78 X10^3/uL (0.83-4.51); Absolute Neutrophil Count 4.4 X10^3/uL (2.0-7.7); Basophil# 0.03 X10^3/uL; Basophil% 0.4 % (0-1); Eosinophil# 0.15 X10^3/uL; Eosinophils% 2.1 % (0-5); Hematocrit 48.8 % (40-54); Hemoglobin 16.3 g/dL (13.0-16.5); Lymphocyte # 1.78 X10^3/ul (0.83-4.51); Mean Corp Hgb Conc 33.4 g/dL (32-36); Mean Corpuscular Hgb 29.2 pg (27.0-32.0); Mean Corpuscular Volume 87.3 fL (80-94); Mean Platelet Vol. 13.5 fl (6.2-12.0); Monocyte# 0.72 X10^3/uL; Monocyte% 10.1 % (0-10); NRBC Flagged by Analyzer 0 % (0-5); Neutrophil % 61.8 % (47-70); POSITIVE COUNT YES; RBC Distribution Width CV 13.4 % (11.6-14.6); RBC Distribution Width SD 42.7 fl (35.1-43.9); Red Blood Count 5.59 M/mm3 (4.6-6.2); White Blood Count 7.1 K/mm3 (4.4-11.0)
[2024-04-19 16:43] LABS: Bedside Glucose 83 mg/dL (74-106)
[2024-04-19 16:55] LABS: ALB/GLOB Ratio 0.8 RATIO (0.9-2.4); AST(SGOT) 24 U/L (15-37); Alanine Aminotransfer ALT/SGPT 42 U/L (16-61); Albumin, Serum 3.9 g/dL (3.2-5.0); Alkaline Phosphatase 80 U/L (45-117); Anion Gap 6 (5-15); BUN 23 mg/dL (7-18); BUN/Creat Ratio 17.2 RATIO (10-20); Chloride 102 mmol/L (98-107); Creatinine, Serum 1.34 mg/dL (0.70-1.30); EST Glomerular Filtration Rate 57 mL/min (>60); Est Glom Filt Rate - Afr Amer 69 mL/min (>60); Estimated Creatinine Clearance 62.94 ml/min; Globulin 4.9 g/dL (2.2-4.2); Glucose 91 mg/dL (74-106); Potassium 4.2 mmol/L (3.5-5.1); Protein, Total 8.8 g/dL (6.4-8.2); Sodium Level 136 mmol/L (136-145)
[2024-04-19 17:05] VITALS: BMI 25.9
[2024-04-19 17:10] LABS: Differential Indicated SCAN CRITERIA MET; Platelet Count 49 K/mm3 (150-450)
--- NOTE | 2024-04-19 17:10 | ED.RN ---
PLATELETS [address]. DR ANN
[2024-04-19 17:12] LABS: Anisocytosis RARE; Platelet Estimate MKD DEC (ADEQ); Red Cell Morphology N CHROM NORMAL (NORM C&C)
--- NOTE | 2024-04-19 17:15 | EDS_ITS ---
HPI History of Present Illness Chief Complaint: Neuro S/Sx Detail of Chief Complaint: Confusion, not himself per family member Informant: patient and family Onset/Context/Timing Onset: Today Context: Sudden Onset (Last known normal at approximately noon.) Timing: Continuous Quality: Not his normal self Location: Uncertain Current Severity: He essentially is at baseline. Maximum Severity: Apparently he was not responsive. There was no seizure activity. Worsened by: Possibly hypertension and no medication for 1 week Relieved by: Nothing Associated Symptoms Associated Symptoms: Possibly a blank stare Narrative Narrative: Patient is a 63-year-old gentleman. He has history of hepatitis, thrombocytopenia, peripheral neuropathy, hypertension and ED who was brought to the emergency room because he was not his normal self. This was first noted at noon. I was asked to evaluate patient in the triage area for possible stroke. Speech and speech is no different than baseline. It is slow. Patient is had a prior stroke. He denies headache. Nuys double vision blurred vision loss of vision. Denies slurring of his words or trouble getting words out. Denies chest pain, pressure tightness heaviness. He denies shortness of breath. He dyspnea dyspnea exertion Denies abdominal pain, nausea, vomiting or diarrhea. He denies dysuria, freque ncy, urgency or hematuria. According to his relative he was discharged from his primary care office at [place], Dr. Sandro Zuniga. He was discharged because he has missed 3 appointments. He has been out of his blood pressure medication for a week. Prior similar symptoms: No Recent Illness/Hospitalization: No [facility] Medical History Smoker Thrombocytopenia Peripheral neuropathy Fractures Neck fracture Throat cancer CVA (cerebral vascular accident) Hypertension Home Medications ?Medication ?Instructions ?Recorded ?Last Taken ?Type sildenafil 50 mg tablet (Viagra) 50 mg PO DAILY PRN 07/08/22 Unknown History gabapentin 300 mg capsule 300 mg PO DAILY 07/13/22 07/20/22 20:00 History lisinopril 40 mg tablet 40 mg PO DAILY 07/13/22 07/21/22 07:00 History melatonin 3 mg tablet 3 mg PO QHS PRN sleep 07/13/22 Unknown History lisinopril 20 mg tablet 20 mg PO DAILY #30 tabs 04/19/24 Unknown Rx Allergy/AdvReac Type Severity Reaction Status Date / Time No Known Allergies Allergy Verified 04/19/24 16:05 Family History Grandmother Hypertension maternal Grandfather Hypertension paternal CVA (cerebral vascular accident) paternal Social History household members: spouse number of children: 5 current occupational status: disabled Smoking Status: Current every day smoker tobacco type: cigarettes Tobacco: How many years used: 30 alcohol intake: current alcohol intake frequency: 3 or more drinks per day Alcohol type: beer and hard liquor substance use type: marijuana ROS ROS ED Constitutional Constitutional ED: Denies chills, fever(s), subjective or sweats Eyes Eyes: Denies blurry vision, change in vision or diplopia ENT ENT ED: Denies ear pain, rhinorrhea or sore throat Cardiovascular Cardiovascular: Denies chest pain, orthopnea, palpitations, paroxysmal nocturnal dyspnea or racing heartbeat Respiratory/Chest Respiratory/Chest: Denies cough, dyspnea, dyspnea on exertion, orthopnea or paroxysmal nocturnal dyspnea Gastrointestinal Gastrointestinal: Denies abdominal pain, diarrhea, nausea or vomiting Genitourinary Genitourinary ED: Denies dysuria, hematuria or urinary frequency Musculoskeletal Musculoskeletal: Denies arthralgias or myalgias Integumentary Denies abscess, Abrasions or rash Neurologic Neurologic: Reports weakness; Denies headache(s) or paresthesias Endocrine Endocrinology: Denies cold intolerance or heat intolerance Hematologic/Lymphatic Hematologic/Lymphatic: Reports systems reviewed and no addt'l complaints, except as documented EXAM Physical Exam Const Vital Signs: 04/19/24 16:04 04/19/24 16:04 04/19/24 17:20 Temperature 96.3 F L Temperature Source Temporal Pulse Rate 74 75 69 Respiratory Rate 14 14 Blood Pressure 216/122 H 206/116 H 190/122 H Blood Pressure Mean 153 146 144 Pulse Ox 96 98 Oxygen Delivery Method Room Air Room Air 04/19/24 17:35 04/19/24 18:00 Temperature Temperature Source Pulse Rate 66 73 Respiratory Rate 16 Blood Pressure 181/98 H 157/98 H Blood Pressure Mean 125 117 Pulse Ox Oxygen Delivery Method Positive well nourished Constitutional Narrative: Patient looks older than reported age. General Appearance ED: NAD; Negative for pallor HEENT Reports moist mucous membranes HEENT Narrative: Ears normal. Nares patent. Posterior pharynx is normal. Uvula is midline. No deviation with protrusion. Eyes PERRL and EOMs intact bilaterally Eyes Narrative: There is no nystagmus. There is no visual field cut. General Eye ED: Negative for pale conjunctiva or scleral icterus Neck no lymphadenopathy, supple and no JVD Neck Narrative: There are no carotid bruits. Chest Wall inspection of chest normal and palpation of chest normal Resp normal respiratory effort and clear to auscultation bilaterally Cardio regular rate, regular rhythm, S1 normal heart sound, S2 normal heart sound and no murmurs GI normal to inspection, nondistended, normoactive bowel sounds, non-tender, non- distended and no masses; Negative for hepatosplenomegaly Back/Spine no CVA tenderness Back/Spine Narrative: Inspection of the back is normal. Extremity normal to inspection General Extremety ED: Negative for edema General Extremity: Negative for edema Neuro oriented x3 and CN's II-XII intact bilaterally Neuro Narrative: Patient is awake. He is at his baseline. Psych mental status grossly normal Attitude: No agitated Mood & Affect: Negative for depressed Skin no rashes or lesions noted, no wounds and skin turgor normal General Skin Exam: Negative for jaundice or pallor MDM MDM MDM Narrative Medical decision making narrative: Patient has markedly elevated blood pressure. This may represent hypertensive emergency. With history of prior stroke and staring he may have had an absence seizure. Will obtain appropriate blood work to assess for endorgan dysfunction. CT was obtained to rule out intracranial bleed. His blood pressure was elevated on 2 different readings. He was treated with IV enalapril. Lab Data Attestation: I reviewed the patient's lab results. Lab results narrative: CBC is remarkable thrombocytopenia. Patient is at his baseline. Creatinine is slightly elevated from baseline. Creatinine is 1.34 with an estimated GFR 57. Total protein is elevated, which it has been in the past. Labs are compared to prior. There is no significant change in his creatinine. Therefore will discharge to home with prescription for lisinopril 20 mg. Labs: Laboratory Results - last 24 hr 04/19/24 16:25 WBC 7.1 RBC 5.59 Hgb 16.3 Hct 48.8 MCV 87.3 MCH 29.2 MCHC 33.4 RDW Std Deviation 42.7 RDW Coeff of Terell 13.4 Plt Count 49 L* MPV 13.5 H Immature Gran % (Auto) 0.600 Neut % (Auto) 61.8 Lymph % (Auto) 25.0 Nelson % (Auto) 10.1 H Eos % (Auto) 2.1 Baso % (Auto) 0.4 Absolute Neuts (auto) 4.4 Absolute Lymphs (auto) 1.78 Nucleated RBC % 0 Differential Comment SEE COMMENT Diff Path Review May foll Platelet Estimate MKD DEC RBC Morphology N CHROM Anisocytosis RARE Sodium 136 Potassium 4.2 Chloride 102 Carbon Dioxide 28.0 Anion Gap 6 BUN 23 H Creatinine 1.34 H Estim Creat Clear Calc 62.94 Est GFR (MDRD) Af Amer 69 Est GFR (MDRD) Non-Af 57 L BUN/Creatinine Ratio 17.2 Glucose 91 Lactic Acid 1.0 Calcium 10.0 Total Bilirubin 0.40 AST 24 ALT 42 Alkaline Phosphatase 80 Total Protein 8.8 H Albumin 3.9 Globulin 4.9 H Albumin/Globulin Ratio 0.8 L POC Glucose 83 Radiography Diagnostic Testing: Clinical Impression(s) from Imaging Studies Brain CT 04/19/24 16:12 IMPRESSION: Age-related and chronic changes of the brain. Electronically Signed: Hussain Calvin DO at 16:58 EDT Reading Location ID and State: [facility] / [place] Tel [phone], Service support , CT was reviewed by me. There is no evidence intracranial bleed, awaiting formal read by radiologist. Treatment and Re-Evaluation :: Patient's blood pressure did respond to the enalapril. His blood pressure now is 165/60. Patient feels better. Patient blood pressure has improved markedly. Will discharge to home on lisinopril. Since he does not have a position he was referred to Dr. Barnes. Discharge Plan Triage Chief Complaint: Neuro S/Sx ED Provider: Maurice Garcias Dx/Rx/DC Orders Clinical Impression: Hypertensive urgency, Peripheral neuropathy, Thrombocytopenia, Creatinine elevation, History of hepatitis C Instructions: ED High Blood Pressure Hypertension Prescriptions: New lisinopril 20 mg tablet 20 mg PO DAILY Qty: 30 0RF No Action sildenafil [Viagra] 50 mg tablet 50 mg PO DAILY PRN Rx Instructions: administer 30 minutes to 4 hours before activity gabapentin 300 mg capsule 300 mg PO DAILY Patient Comments: TAKE 1 CAPSULE BY MOUTH AT BEDTIME FOR MUSCLE SPASMS FROM STROKE HASNT TAKEN IN 1 WEEK lisinopril 40 mg tablet 40 mg PO DAILY Patient Comments: TAKE 1 TABLET BY MOUTH DAILY HASNT TAKEN IN 1 WEEK melatonin 3 mg tablet 3 mg PO QHS PRN (Reason: sleep) Patient Comments: TAKE 1 TABLET AT SUPPER AND AT BEDTIME Primary Care Provider: Sandro Zuniga Referrals: Vikki Barnes MD [Med Staff - Active Staff] - 1 Week Sandro Zuniga MD [Primary Care Provider] - Print Language: Amharic Disposition Disposition: Home, Self Care
[2024-04-19] MEDS: Enalaprilat 1.25 MG/ML Vial IV (17:19)
[2024-04-19 17:20] VITALS: BP 190/122; PULSE 69
[2024-04-19 17:35] VITALS: BP 181/98; PULSE 66
[2024-04-19 18:00] VITALS: BP 157/98; PULSE 73; RESP 16
[2024-04-19 18:12] VITALS: BP 157/98; PULSE 73
[2024-04-19 18:27] VITALS: BP 160/93; PULSE 69; RESP 22; TEMP 36.4; O2SAT 98
[2024-04-22 13:57] LABS: Pathologist Review Reviewed
== END 2024-04-19 18:38 | disposition home or self-care (01) ==
PROVIDERS: Emergency Provider Emergency Medicine; PCP Family Medicine; Visit Provider Emergency Medicine
DX: R41.0 Disorientation, unspecified (principal); I16.0 Hypertensive urgency; G62.9 Polyneuropathy, unspecified; D69.6 Thrombocytopenia, unspecified; Z86.73 Personal history of transient ischemic attack (TIA), and cerebral infarction without residual deficits; F17.210 Nicotine dependence, cigarettes, uncomplicated; I10 Essential (primary) hypertension; R79.89 Other specified abnormal findings of blood chemistry; Z86.19 Personal history of other infectious and parasitic diseases; Z85.89 Personal history of malignant neoplasm of other organs and systems; Z79.899 Other long term (current) drug therapy
CPT/HCPCS: 70450; 80053; 82962; 83605; 85025; 93005; 96374; 99284; A4216

== ENCOUNTER 2024-08-21 16:45 | Observation (INO) | payer MEDICARE, MEDICAID, SELFPAY ==
[2024-08-21] VITALS (17 sets, daily range): BP systolic 102–232; BP diastolic 58–124; PULSE 67–80; RESP 11–24; TEMP 36.2–36.7; O2SAT 95–100; BMI 26.6
--- NOTE | 2024-08-21 16:59 | CT_ITS ---
STUDY: CT ABDOMEN AND PELVIS WITH CONTRAST REASON FOR EXAM: Male, 63 years old. rectal bleeding RADIATION DOSAGE (If Supplied By Facility): CTDIvol = ( 11.09 ) mGy, DLP = ( 1089.83 ) mGycm TECHNIQUE: Transaxial images were obtained from the dome of the diaphragm to the symphysis pubis without oral contrast. IV 100mL Isovue-370 was administered. Sagittal and coronal images were reconstructed. Individualized dose optimization techniques were used for this CT. COMPARISON: August 20, 2015 FINDINGS: Mild atelectasis within the dependent portion OF the lower lobes. The visualized portions of the heart are within normal limits. Small hiatal hernia is noted Mild nonspecific fatty infiltrated liver. There is a small cyst in the caudate lobe. Bile ducts are not dilated. Normal gallbladder and extrahepatic biliary system. Normal spleen. Normal pancreas. Normal bilateral adrenal glands. Normal right kidney. Normal left kidney. Concentric thickening of the kennedy of stomach which may be consistent with nonspecific gastritis.. Normal small intestine. Mild diverticular disease of the distal descending and sigmoid colon without evidence for acute diverticulitis. The appendix is visualized and appears normal. Atherosclerotic changes of the aorta without evidence for aneurysm. Normal inferior vena cava. Normal retroperitoneum. Normal urinary bladder. Normal abdominal wall. Lumbar spine demonstrates degenerative changes. CT/Abdomen/Pelvis W IV Cont ONLY IMPRESSION: Mild nonspecific fatty infiltrated liver.. Findings which may be consistent with nonspecific gastritis.. Diverticular disease of the colon without evidence for acute diverticulitis No definitive site for intraluminal hemorrhage. Radionuclide tagged red blood cell study would be helpful for further evaluation if clinically warranted Electronically Signed: Lance Taylor MD at 18:46 EDT Reading Location ID and State: [facility] / [place] Tel , Service support ,
--- NOTE | 2024-08-21 17:07 | EDS_ITS ---
HPI HPI - GI History of Present Illness Chief Complaint: GI Bleed Detail of Chief Complaint: Rectal bleeding Informant: patient Narrative Narrative: Patient presents the emergency department complaint of rectal bleeding x 2 days. His daughter gives a lot of the history because patient is hard of hearing and he is good at reading lips however. Patient denies any abdominal pain. He has not had episodes like this before. His last colonoscopy was in 2012 and he had some polyps at that time. Patient has remote history of throat cancer and is in remission. He said prior hemorrhagic stroke. He said history of thrombocytopenia. He denies feeling lightheaded or dizzy. He denies abdominal pain. He said no fever or recent illness. [facility] Medical History Smoker Thrombocytopenia Peripheral neuropathy Fractures Neck fracture Throat cancer CVA (cerebral vascular accident) Hypertension Home Medications ?Medication ?Instructions ?Recorded ?Last Taken ?Type sildenafil 50 mg tablet (Viagra) 50 mg PO DAILY PRN erectile 07/08/22 Unknown History dysfunction gabapentin 300 mg capsule 300 mg PO DAILY 07/13/22 04/19/24 History lisinopril 40 mg tablet 40 mg PO DAILY 07/13/22 04/08/24 History Allergy/AdvReac Type Severity Reaction Status Date / Time No Known Allergies Allergy Verified 08/21/24 16:46 Family History Grandmother Hypertension maternal Grandfather Hypertension paternal CVA (cerebral vascular accident) paternal Social History household members: spouse number of children: 5 current occupational status: disabled Smoking Status: Current every day smoker tobacco type: cigarettes Tobacco: How many years used: 30 alcohol intake: current alcohol intake frequency: 3 or more drinks per day Alcohol type: beer and hard liquor substance use type: marijuana ROS ROS ED Review of Systems ROS Unobtainable: other Constitutional Constitutional ED: Reports lethargy; Denies chills, fever(s), sweats or weight loss Eyes Eyes: Denies blurry vision, change in vision or diplopia ENT ENT ED: Denies rhinorrhea or sore throat Cardiovascular Cardiovascular: Denies chest pain, orthopnea or racing heartbeat Respiratory/Chest Respiratory/Chest: Denies cough, dyspnea, dyspnea on exertion, orthopnea or sputum Gastrointestinal Gastrointestinal: Reports other Details: Rectal bleeding ; Denies abdominal pain, diarrhea, nausea or vomiting Genitourinary Genitourinary ED: Denies dysuria, hematuria or urinary frequency Musculoskeletal Musculoskeletal: Denies arthralgias, back pain, myalgias or neck pain Integumentary Denies abscess, Abrasions or rash Neurologic Neurologic: Denies headache(s) or weakness Psychiatric Psychiatric: Denies anxiety, depression or suicidal thoughts Endocrine Endocrinology: Denies polydipsia, polyphagia or polyuria Hematologic/Lymphatic Hematologic/Lymphatic: Denies easy bleeding, easy bruising or lymphadenopathy Allergic/Immunologic Allergic/Immunologic ED: Denies mouth swelling, tongue swelling or urticaria EXAM Physical Exam Const Vital Signs: 08/21/24 16:47 08/21/24 18:46 Temperature 97.2 F L Temperature Source Temporal Pulse Rate 77 80 Respiratory Rate 16 18 Blood Pressure 232/121 H 217/124 H Blood Pressure Mean 158 155 Pulse Ox 100 95 Oxygen Delivery Method Room Air Room Air Positive well nourished and well developed General Appearance ED: well developed and NAD HEENT Reports TM's clear and moist mucous membranes normocephalic and atraumatic; Negative for trauma or tenderness Tympanic Membrane ED: Yes TM's clear Eyes PERRL and EOMs intact bilaterally General Eye ED: Negative for pale conjunctiva or scleral icterus Neck no lymphadenopathy, supple and no JVD General: Negative for tenderness Chest Wall inspection of chest normal and palpation of chest normal Chest: Negative for tenderness Resp normal respiratory effort and clear to auscultation bilaterally Effort and Inspection: Negative for respiratory distress or pain with movement Auscultation: Negative for rhonchi, wheezes or diminished lung sounds Cardio regular rate, regular rhythm, S1 normal heart sound, S2 normal heart sound and no murmurs Peripheral Pulses: pulses 2+ throughout GI normal to inspection, nondistended, normoactive bowel sounds, soft to palpation, non-tender, non-distended and no masses GI Narrative: Evaluation of the rectum reveals no evidence of hemorrhoids or fissures. Back/Spine no CVA tenderness and no thoracic nor lumbar tenderness Extremity normal to inspection General Extremety ED: Negative for edema General Extremity: Negative for edema Neuro oriented x3, CN's II-XII intact bilaterally, no sensory deficits noted and gait normal Sensorium / Orientation: awake, alert, oriented to person, oriented to place and oriented to time Motor Exam: strength 5/5 throughout and strength abnormal Psych mental status grossly normal Skin no rashes or lesions noted and no wounds MDM MDM MDM Narrative Medical decision making narrative: Patient presents with rectal bleeding x 2 days. Patient also not taken his blood pressure medicine. He is hard of hearing. Bright red blood noted at the rectum without hemorrhoid or fissure noted. IV line established. CBC with differential white count of 5.4 with hemoglobin 15.7 and platelet count of 50. Chemistries unremarkable. Lactate 1.4. CT scan of the abdomen pelvis with IV contrast showed diverticulosis without diverticulitis but no other acute significant process. Patient initially was medicated with hydralazine 10 mg IV and he continues to be hypertensive with systolic of 217/124. This point discussed case with hospitalist to evaluate patient for admission. I was asked to give patient labetalol 20 mg IV which was ordered. Patient will be admitted for hypertensive emergency and rectal bleeding. Patient also has chronic thrombocytopenia. Lab Data Attestation: I reviewed the patient's lab results. Labs: Laboratory Results - last 24 hr 08/21/24 08/21/24 08/21/24 17:35 17:36 18:19 WBC 5.4 RBC 5.31 Hgb 15.7 15.6 Hct 46.5 45.9 MCV 87.6 MCH 29.6 MCHC 33.8 RDW Std Deviation 44.7 H RDW Coeff of Terell 14.0 Plt Count 50 L* MPV 14.0 H Immature Gran % (Auto) 0.600 Neut % (Auto) 62.2 Lymph % (Auto) 27.3 [place] % (Auto) 8.6 Eos % (Auto) 1.1 Baso % (Auto) 0.2 Absolute Neuts (auto) 3.3 Absolute Lymphs (auto) 1.46 Nucleated RBC % 0 PT 13.4 INR 1.0 Sodium 139 Potassium 3.5 Chloride 105 Carbon Dioxide 26.0 Anion Gap 8 BUN 21 H Creatinine 1.20 Est GFR (MDRD) Af Amer 78 Est GFR (MDRD) Non-Af 65 BUN/Creatinine Ratio 17.5 Glucose 133 H Lactic Acid 1.4 Calcium 9.0 Phosphorus 3.1 Magnesium 2.0 Blood Type O POSITIVE Antibody Screen NEGATIVE Radiography Diagnostic Testing: Clinical Impression(s) from Imaging Studies Abdomen/Pelvis CT 10/09/24 16:59 IMPRESSION: Mild nonspecific fatty infiltrated liver.. Findings which may be consistent with nonspecific gastritis.. Diverticular disease of the colon without evidence for acute diverticulitis No definitive site for intraluminal hemorrhage. Radionuclide tagged red blood cell study would be helpful for further evaluation if clinically warranted Electronically Signed: Lance Taylor MD at 18:46 EDT Reading Location ID and State: [facility] / [place] Tel , Service support , EKG Initial EKG: Attestation: I personally reviewed and interpreted this EKG as follows: Comments: Sinus rhythm with ventricular rate 66 bpm with no acute ST segment changes Discharge Plan Dx/Rx/DC Orders Clinical Impression: Hypertensive urgency, Thrombocytopenia, Rectal bleed Disposition Disposition: Acute Care Hospital [facility] Discharge Date/Time: 08/21/24 20:58
[2024-08-21] MEDS: hydrALAZINE 20 MG/ML Vial 10 MG IV (17:39)
[2024-08-21 17:53] LABS: Absolute Lymphocyte Count 1.46 X10^3/uL (0.83-4.51); Absolute Neutrophil Count 3.3 X10^3/uL (2.0-7.7); Basophil# 0.01 X10^3/uL; Basophil% 0.2 % (0-1); Eosinophil# 0.06 X10^3/uL; Eosinophils% 1.1 % (0-5); Hematocrit 46.5 % (40-54); Hemoglobin 15.7 g/dL (13.0-16.5); Lymphocyte # 1.46 X10^3/ul (0.83-4.51); Lymphocyte % 27.3 % (19-41); Mean Corp Hgb Conc 33.8 g/dL (32-36); Mean Corpuscular Hgb 29.6 pg (27.0-32.0); Mean Corpuscular Volume 87.6 fL (80-94); Monocyte# 0.46 X10^3/uL; Monocyte% 8.6 % (0-10); NRBC Flagged by Analyzer 0 % (0-5); Neutrophil # 3.33 X10^3/uL (2.7-7.7); Neutrophil % 62.2 % (47-70); POSITIVE COUNT YES; RBC Distribution Width SD 44.7 fl (35.1-43.9); Red Blood Count 5.31 M/mm3 (4.6-6.2); White Blood Count 5.4 K/mm3 (4.4-11.0)
[2024-08-21 17:56] LABS: Platelet Count 50 K/mm3 (150-450)
[2024-08-21 18:05] LABS: Anion Gap 8 (5-15); BUN 21 mg/dL (7-18); BUN/Creat Ratio 17.5 RATIO (10-20); Chloride 105 mmol/L (98-107); EST Glomerular Filtration Rate 65 mL/min (>60); Est Glom Filt Rate - Afr Amer 78 mL/min (>60); Glucose 133 mg/dL (74-106); Potassium 3.5 mmol/L (3.5-5.1); Sodium Level 139 mmol/L (136-145)
[2024-08-21 18:23] LABS: Lactic Acid 1.4 mmol/L (0.4-1.9)
--- NOTE | 2024-08-21 19:17 | PCM.HP.STD ---
HPI - General General Date of Admission: 08/21/24 Date of Service: 08/21/24 Chief Complaint: Bright red rectal blood pouring out, started today HPI Narrative AGUSTIN BARCLAY, is a 63 M with multiple comorbidities came to ED for bright red rectal bleed that started in the morning today. It is documented present for 2 days but patient's daughter and patient himself confirmed for 1 day. The patient is accompanied by his and daughter in ED and history mainly taken from them as the patient has profound hearing loss and speech problem from him [place] stroke in September 2020 when he was airflight transferred to [facility] from [facility] ED As per the daughter, he when he walks blood is leaking from the rectum. Patient states he feels dizzy/lightheaded on walking. No abdominal/rectal pain. No tenesmus. No fever. In ED, patient's BP was found very high 232/121, heart rate 77/min. No hypoxia or tachypnea. Patient was given IV hydralazine and IV labetalol. Blood pressure still high Patient has chronic pain/neuropathy pain in lower extremity since the stroke and asking for morphine Vitals and labs and CT imaging reviewed discussion assessment and plan. [facility] Medical History Smoker Thrombocytopenia Peripheral neuropathy Fractures Neck fracture Throat cancer CVA (cerebral vascular accident) Hypertension Home Medications ?Medication ?Instructions ?Recorded ?Last Taken ?Type sildenafil 50 mg tablet (Viagra) 50 mg PO DAILY PRN erectile 07/08/22 Unknown History dysfunction gabapentin 300 mg capsule 300 mg PO DAILY 07/13/22 04/19/24 History lisinopril 40 mg tablet 40 mg PO DAILY 07/13/22 04/08/24 History Allergy/AdvReac Type Severity Reaction Status Date / Time No Known Allergies Allergy Verified 08/21/24 16:46 Family History Grandmother Hypertension maternal Grandfather Hypertension paternal CVA (cerebral vascular accident) paternal Social History household members: spouse number of children: 5 current occupational status: disabled Smoking Status: Current every day smoker tobacco type: cigarettes Tobacco: How many years used: 30 alcohol intake: current alcohol intake frequency: 3 or more drinks per day Alcohol type: beer and hard liquor substance use type: marijuana ROS ROS Narrative Constitutional: Reports fatigue and weakness. No fever. HEENT: Dizziness and lightheadedness reports systems reviewed and no addt'l complaints, except as documented Respiratory/Chest: No acute shortness of breath or respiratory distress or wheezing. CVS: No chest pain or tightness Gastrointestinal: Denies coffee ground emesis, hematemesis or vomiting. Rest as described in HPI Genitourinary: Denies burning urination or new urinary tract symptoms Musculoskeletal: Chronic neuropathy pain after stroke. Uses cane. Denies acute joint pain or limited range of motion. No acute injury Neurologic: Denies seizure-like symptoms. Hemorrhagic stroke in 2019. skin: No ulcer. No rash Endocrinology: Reports systems reviewed and no addt'l complaints, except as documented Hematologic/Lymphatic: Chronic severe thrombocytopenia. Follows hematology clinic. Reports systems reviewed and no addt'l complaints, except as documented Rest 14 ROS are negative except as mentioned in HPI Vital Signs Vital Signs Vital Signs: 08/21/24 16:47 08/21/24 18:46 Temperature 97.2 F L Temperature Source Temporal Pulse Rate 77 80 Respiratory Rate 16 18 Blood Pressure 232/121 H 217/124 H Blood Pressure Mean 158 155 Pulse Ox 100 95 Oxygen Delivery Method Room Air Room Air Physical Exam Narrative General: Alert, Oriented x3, Cooperative. HEENT: Atraumatic, PERRLA, EOMI, Normocephalic Oral: Oral mucosa dry no Gingival or Mucosal Lesions/ Ulcerations Neck: Supple, No JVD, Negative Carotid Bruits Chest wall/Lungs: Air entry diminished in bilateral lung bases. No crepitation/rhonchi Cardiovascular: Regular rate, Regular Rhythm, Normal S1, Normal S2, No M/G/R Abdomen: Bowel Sounds Present, Soft, Non Tender, Non-Distended : No dysuria. No renal angle tenderness. No suprapubic tenderness. Extremities: No edema, Capillary Refill Less than 3 Seconds Skin: No rashes, No breakdown Musculoskeletal: Muscle strength 5/5 at knees and hip joints. No acute tenderness to Palpation of Joints or Extremities Neurological: Cranial nerves II-XII grossly intact, DTR 2+/4. Profound hearing loss and mild dysphagia after stroke. Neuropathy lower extremity Psych/Mental Status: Flat Results Lab / Micro Data 08/21/24 17:35 08/21/24 17:35 Labs: Laboratory Results - last 24 hr 08/21/24 17:35: WBC 5.4, RBC 5.31, Hgb 15.7, Hct 46.5, MCV 87.6, MCH 29.6, MCHC 33.8, RDW Std Deviation 44.7 H, RDW Coeff of Terell 14.0, Plt Count 50 L*, MPV 14.0 H, Immature Gran % (Auto) 0.600, Neut % (Auto) 62.2, Lymph % (Auto) 27.3, [place] % (Auto) 8.6, Eos % (Auto) 1.1, Baso % (Auto) 0.2, Absolute Neuts (auto) 3.3, Absolute Lymphs (auto) 1.46, Nucleated RBC % 0, Sodium 139, Potassium 3.5, Chloride 105, Carbon Dioxide 26.0, Anion Gap 8, BUN 21 H, Creatinine 1.20, Est GFR (MDRD) Af Amer 78, Est GFR (MDRD) Non-Af 65, BUN/Creatinine Ratio 17.5, Glucose 133 H, Lactic Acid 1.4, Calcium 9.0, Blood Type O POSITIVE, Antibody Screen NEGATIVE Imaging Radiology Impression Abdomen/Pelvis CT 08/21/24 16:59 IMPRESSION: Mild nonspecific fatty infiltrated liver.. Findings which may be consistent with nonspecific gastritis.. Diverticular disease of the colon without evidence for acute diverticulitis No definitive site for intraluminal hemorrhage. Radionuclide tagged red blood cell study would be helpful for further evaluation if clinically warranted Electronically Signed: Lance Taylor MD at 18:46 EDT , Assessment & Plan Assessment/Plan (1) Rectal bleed: (2) Hypertensive emergency: PLAN: Plan This is a 63-year-old gentleman came to ED for acute onset of Bright red rectal bleed with no abdominal rectal pain. Blood pressure very high 1. Acute lower GI bleed, exact etiology unclear possible differential diverticular bleed/ischemic or hemorrhoidal bleed: Patient has history of chronic hep C and thrombocytopenia therefore possible suspicion of portal hypertension though less likely. Patient does not have abdominal pain or tenderness. Discussed with Dr. Wisdom, double bottom driver. Patient is being admitted in ICU. H&H every 6 hourly. Pantoprazole 40 mg every 12 hourly. IV fluid Ringer lactate slow rate. Monitor intake and output. Patient will need EGD and colonoscopy. Colon prep starting tomorrow afternoon with n.p.o. midnight 08/23/2024 Patient had EGD in our chart June 2015 which showed severe gastroduodenitis. Patient had colonoscopy long time ago as per the daughter but no record. I do not think patient needs octreotide drip or IV ceftriaxone as chance of variceal bleed is very less likely and patient has hypertensive emergency. CT abdomen/pel with IV contrast initially reviewed. Nonspecific gastritis. Diverticular disease in the colon without evidence of acute diverticulitis. No definite evidence of intraluminal hemorrhage. 2. Hypertensive emergency with acute lower GI bleed: Patient does not have chest pain or symptoms of ACS. Patient had IV hydralazine and labetalol and BP 165/103. Heart rate 77/min. Started on IV nicardipine drip. 3. Chronic hepatitis C: Has history since long preoperative before 2014. Has not been treated. Advised to follow-up in GI clinic for further eval 4. Chronic severe thrombocytopenia: Patient follows Dr. Barboza in hematology clinic. It is thought that it is multifactorial including chronic alcohol use disorder, untreated chronic viral hepatitis, possible post chemoradiation/ITP though less likely. Patient still drinks, 3 or more drinks every day beer or hard liquor. 5. 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 Tobacco dependence/cigarette smokin to 30 pack years of smoking. Advised quit smoke 7. Hypothyroidism-patient is on levothyroxine home dose continued. TSH ordered for tomorrow 8. Hemorrhagic stroke in September 2020: As per his he recovered quickly after the stroke but had profound hearing loss and mild dysphagia. Patient walks on cane. He has chronic severe peripheral neuropathy requiring pain medications 9 DVT prophylaxis: Pharmacological prophylaxis contraindicated due to severe lower GI bleed and severe thrombocytopenia. Bilateral SCDs Clinical Impression(s) from Imaging Studies Abdomen/Pelvis CT 08/21/24 16:59 IMPRESSION: Mild nonspecific fatty infiltrated liver.. Findings which may be consistent with nonspecific gastritis.. Diverticular disease of the colon without evidence for acute diverticulitis No definitive site for intraluminal hemorrhage. Radionuclide tagged red blood cell study would be helpful for further evaluation if clinically warranted Electronically Signed: Lance Taylor MD at 18:46 EDT Reading Location ID and State: [facility] / [place] Tel , Service support , Living will/advanced directive/end of life care: Patient does not have living will or advanced directive. Patient does not have negative power of direct marketing coordinator for health but is next of kin. After discussion of benefits/risks procedures involved with full code, DNR CC arrest and DNR CC, the patient, his and daughter present in the room opted for full code. Patient does want artificial life support including intubation, tube feed, ventilator and/chest compression, central venous catheter, vasopressor and DC shock if needed Total time spent in [id number] encounter in discussion of advanced directive 17 minutes. Laboratory Results 08/21/24 17:35: WBC 5.4, RBC 5.31, Hgb 15.7, Hct 46.5, MCV 87.6, MCH 29.6, MCHC 33.8, RDW Std Deviation 44.7 H, RDW Coeff of Terell 14.0, Plt Count 50 L*, MPV 14.0 H, Immature Gran % (Auto) 0.600, Neut % (Auto) 62.2, Lymph % (Auto) 27.3, [place] % (Auto) 8.6, Eos % (Auto) 1.1, Baso % (Auto) 0.2, Absolute Neuts (auto) 3.3, Absolute Lymphs (auto) 1.46, Nucleated RBC % 0, Sodium 139, Potassium 3.5, Chloride 105, Carbon Dioxide 26.0, Anion Gap 8, BUN 21 H, Creatinine 1.20, Est GFR (MDRD) Af Amer 78, Est GFR (MDRD) Non-Af 65, BUN/Creatinine Ratio 17.5, Glucose 133 H, Lactic Acid 1.4, Calcium 9.0, Blood Type O POSITIVE, Antibody Screen NEGATIVE Clinical Impression(s) from Imaging Studies Abdomen/Pelvis CT 08/21/24 16:59 IMPRESSION: Mild nonspecific fatty infiltrated liver.. Findings which may be consistent with nonspecific gastritis.. Diverticular disease of the colon without evidence for acute diverticulitis No definitive site for intraluminal hemorrhage. Radionuclide tagged red blood cell study would be helpful for further evaluation if clinically warranted Electronically Signed: Lance Taylor MD at 18:46 EDT , Charges/Coding Visit Charges Inpatient E&M: 30710 Init Hosp L3 Procedures Hospitalists Procedures: 24405 Advncd Care Plan 30 Min
[2024-08-21] MEDS: Labetalol (Prefilled) 20 MG/4 ML Vial IV (19:57)
[2024-08-21] MEDS: Morphine 2 MG/ML Syringe IV (20:16)
--- NOTE | 2024-08-21 20:25 | EKG12_ITS ---
Test Reason : GI BLEED Blood Pressure : / mmHG Vent. Rate : 066 BPM Atrial Rate : 066 BPM P-R Int : 148 ms QRS Dur : 090 ms QT Int : 446 ms P-R-T Axes : 025 030 060 degrees QTc Int : 467 ms Normal sinus rhythm Normal ECG Confirmed by NATALIE DURÁN, MATT ([id number]), editor school photograph PATRICIA DE LOS SANTOS ([id number]) on 08/23/2024 2:09:56 PM Referred By: Светлана Chance Confirmed By:MATT ESTRADA MD
[2024-08-21 20:46] LABS: Prothrombin Time (Protime)PT. 13.4 SECONDS (11.7-14.9)
[2024-08-21 20:49] LABS: Phosphorus 3.1 mg/dL (2.5-4.9)
--- NOTE | 2024-08-21 20:51 | ED.RN ---
called report to Ally URBINA in ICU
[2024-08-21] MEDS: Lactated Ringers 1,000 ML 75 ML IV (21:27)
[2024-08-21] MEDS: Pantoprazole Sodium 40 MG in 0.9% Normal Saline (100mL MB+) 100 ML 330 MG IV (21:27)
[2024-08-21 21:33] LABS: Hematocrit 45.9 % (40-54); Hemoglobin 15.6 g/dL (13.0-16.5)
[2024-08-21] MEDS: NICARdipine 25 MG in 0.9% Normal Saline (250mL Bag) 240 ML 50 MG CONT INF (21:50)
[2024-08-21] MEDS: Lisinopril 40 MG Tablet PO (22:10)
[2024-08-21] MEDS: 0.9% Saline Lock 10 ML Syringe IV (22:11)
[2024-08-21] MEDS: Acetaminophen 500 MG Tablet 1000 MG PO (22:11)
[2024-08-22] VITALS (16 sets, daily range): BP systolic 107–138; BP diastolic 61–102; PULSE 55–69; RESP 9–17; TEMP 36.1–36.6; O2SAT 96–99; BMI 26.9
[2024-08-22 02:55] LABS: Hematocrit 43.4 % (40-54); Hemoglobin 15.4 g/dL (13.0-16.5)
[2024-08-22 04:34] LABS: Absolute Neutrophil Count 4.3 X10^3/uL (2.0-7.7); Basophil# 0.03 X10^3/uL; Basophil% 0.4 % (0-1); Eosinophil# 0.05 X10^3/uL; Eosinophils% 0.7 % (0-5); Hematocrit 43.2 % (40-54); Hemoglobin 14.7 g/dL (13.0-16.5); Lymphocyte % 28.3 % (19-41); Mean Corpuscular Hgb 29.7 pg (27.0-32.0); Mean Corpuscular Volume 87.3 fL (80-94); Mean Platelet Vol. 12.7 fl (6.2-12.0); Monocyte# 0.64 X10^3/uL; Monocyte% 9.1 % (0-10); NRBC Flagged by Analyzer 0 % (0-5); Neutrophil % 60.9 % (47-70); POSITIVE COUNT YES; RBC Distribution Width CV 13.9 % (11.6-14.6); RBC Distribution Width SD 44.3 fl (35.1-43.9); Red Blood Count 4.95 M/mm3 (4.6-6.2); White Blood Count 7.1 K/mm3 (4.4-11.0)
[2024-08-22 04:38] LABS: Differential Indicated SCAN CRITERIA MET; Platelet Count 48 K/mm3 (150-450)
[2024-08-22 05:01] LABS: ALB/GLOB Ratio 0.8 RATIO (0.9-2.4); AST(SGOT) 31 U/L (15-37); Alanine Aminotransfer ALT/SGPT 53 U/L (16-61); Albumin, Serum 3.3 g/dL (3.2-5.0); Alkaline Phosphatase 66 U/L (45-117); Anion Gap 8 (5-15); BUN 21 mg/dL (7-18); BUN/Creat Ratio 17.6 RATIO (10-20); Calcium,Total 8.5 mg/dL (8.5-10.1); Chloride 107 mmol/L (98-107); Creatinine, Serum 1.19 mg/dL (0.70-1.30); EST Glomerular Filtration Rate 65 mL/min (>60); Est Glom Filt Rate - Afr Amer 79 mL/min (>60); Estimated Creatinine Clearance 68.83 ml/min; Glucose 108 mg/dL (74-106); Potassium 3.6 mmol/L (3.5-5.1); Protein, Total 7.3 g/dL (6.4-8.2); Sodium Level 139 mmol/L (136-145)
[2024-08-22 05:20] LABS: Differential Comment SCANNED; Platelet Estimate MKD DEC (ADEQ)
[2024-08-22] MEDS: amLODIPine 5 MG Tablet PO (05:52)
[2024-08-22] MEDS: Acetaminophen 500 MG Tablet 1000 MG PO (05:52)
--- NOTE | 2024-08-22 07:41 | PCM.PN.HOSP ---
Reason for Visit Reason for Visit: Rectal bleeding Subjective Subjective Patient is a 63-year-old white male who presented to the emergency department at [facility] on 08/21/2024 for rectal bleeding. Evidently he is hard of hearing so daughter helped with a lot of history on presentation. He had had rectal bleeding for about 2 days. He denied abdominal pain and had not had any episodes like this previously. It was reported he had a colonoscopy in 2012 and had some polyps at that time but no other abnormalities. He has chronic thrombocytopenia and denied any other significant symptoms. Vital signs on presentation showed a temperature of 97.2, heart rate 77, pulse 16, blood pressure was 232/121 with a repeat 217/124, pulse ox was 95 to 100% on room air. CBC was overtly unremarkable. His initial hemoglobin was 15.6 and repeat hemoglobins have been stable. Platelet count was 50,000 which is comparable to his baseline and he had no left shift. Coags were unremarkable. Chemistry panel was overtly unremarkable with stable renal function at 1.2. Glucose was 133. Lactic acid was 1.4. TSH was found to be markedly elevated at 17.3. His only blood pressure medication at home is lisinopril and he is reportedly compliant with this. Objective Data Objective Data Vital Signs: Vital Signs Temp Pulse Resp BP Pulse Ox O2 Del Method 97 F L 60 13 122/102 H 99 Room Air 08/22/24 04:00 08/22/24 07:00 08/22/24 07:00 08/22/24 07:00 08/22/24 07:23 08/22/24 07:23 Oxygen Delivery Method Room Air Weight: 90.2 kg Body Mass Index (BMI) 26.9 Intake & Output: Intake and Output for Last 24 Hours 08/20/24 08/21/24 08/22/24 23:59 23:59 23:59 Intake Total 299.58 / 312.08 12.5 / 12.5 Output Total 200 / 200 Balance 299.58 / 312.08 -187.5 / -187.5 Lab / Micro Data 08/22/24 04:20 08/22/24 04:20 Labs: Laboratory Results - last 24 hr 08/21/24 17:35: WBC 5.4, RBC 5.31, Hgb 15.7, Hct 46.5, MCV 87.6, MCH 29.6, MCHC 33.8, RDW Std Deviation 44.7 H, RDW Coeff of Terell 14.0, Plt Count 50 L*, MPV 14.0 H, Immature Gran % (Auto) 0.600, Neut % (Auto) 62.2, Lymph % (Auto) 27.3, [place] % (Auto) 8.6, Eos % (Auto) 1.1, Baso % (Auto) 0.2, Absolute Neuts (auto) 3.3, Absolute Lymphs (auto) 1.46, Nucleated RBC % 0, Sodium 139, Potassium 3.5, Chloride 105, Carbon Dioxide 26.0, Anion Gap 8, BUN 21 H, Creatinine 1.20, Est GFR (MDRD) Af Amer 78, Est GFR (MDRD) Non-Af 65, BUN/Creatinine Ratio 17.5, Glucose 133 H, Lactic Acid 1.4, Calcium 9.0, Phosphorus 3.1, Magnesium 2.0, Blood Type O POSITIVE, Antibody Screen NEGATIVE 08/21/24 17:36: PT 13.4, INR 1.0 08/21/24 18:19: Hgb 15.6, Hct 45.9 08/22/24 02:45: Hgb 15.4, Hct 43.4 08/22/24 04:20: WBC 7.1, RBC 4.95, Hgb 14.7, Hct 43.2, MCV 87.3, MCH 29.7, MCHC 34.0, RDW Std Deviation 44.3 H, RDW Coeff of Terell 13.9, Plt Count 48 L*, MPV 12.7 H, Immature Gran % (Auto) 0.600, Neut % (Auto) 60.9, Lymph % (Auto) 28.3, [place] % (Auto) 9.1, Eos % (Auto) 0.7, Baso % (Auto) 0.4, Absolute Neuts (auto) 4.3, Absolute Lymphs (auto) 2.00, Nucleated RBC % 0, Differential Comment SCANNED, Diff Path Review March funmi, Platelet Estimate MKD DEC, Sodium 139, Potassium 3.6, Chloride 107, Carbon Dioxide 24.0, Anion Gap 8, BUN 21 H, Creatinine 1.19, Estim Creat Clear Calc 68.83, Est GFR (MDRD) Af Amer 79, Est GFR (MDRD) Non-Af 65, BUN/Creatinine Ratio 17.6, Glucose 108 H, Calcium 8.5, Total Bilirubin 0.60, AST 31, ALT 53, Alkaline Phosphatase 66, Total Protein 7.3, Albumin 3.3, Globulin 4.0, Albumin/Globulin Ratio 0.8 L, TSH 17.300 H Radiography Diagnostic Testing: Radiology Impression Abdomen/Pelvis CT 08/21/24 16:59 IMPRESSION: Mild nonspecific fatty infiltrated liver.. Findings which may be consistent with nonspecific gastritis.. Diverticular disease of the colon without evidence for acute diverticulitis No definitive site for intraluminal hemorrhage. Radionuclide tagged red blood cell study would be helpful for further evaluation if clinically warranted Electronically Signed: Lance Taylor MD at 18:46 EDT ,
[2024-08-22 08:59] LABS: T4 Free Direct 0.84 ng/dL (0.76-1.46)
--- NOTE | 2024-08-22 10:00 | CASEMGMT ---
RN?CM?TERRITORY DEVELOPMENT MANAGER?CM?to room to meet with patient for initial transition planning/care coordination?assessment.?RN?CM?introduced self and role at [facility].?? Pt resting in bed in no distress at this time, sleeping. Pt is also very [place], per report. , Amberly, @ bedside and she provided the following information. DaughterCamille, also @ bedside. Care providers, pharmacy, and demographics verified/updated at this time. PCP: No PCP. nunu Vieyra real estate executive assistant, to provide list to pt/. Specialists: none Preferred Pharmacy: [facility] Insurance: [employer] [facility] Prescription Benefit:?yes LNOK: , Amberly. Daughter, Camille. Living Arrangements: Pt lives w/ in 2-story home w/no steps to enter. [facility]. Pt is independent w/self care and manages his own medications. Pt and share home mgnt tasks. Transportation:? DME: ? Per , pt uses no DME and denies needs.? HHC/SNF: No hx of either. Has done OP therapy in the past. states pt wishes to return home and states has no concerns with going home at time. PT/OT evals have been ordered. Juli URBINA, states she will get pt up and will notify therapy if evals are needed or not. PLAN:?Home w/spousal support and discharge plans in place. ? Leoncio BRANDN?RN?CM
--- NOTE | 2024-08-22 10:06 | CASEMGMT ---
CARLITOS MACK note: RN CM to room. Pt sleeping. @ bedside and notified of status change from inpatient to outpatient. BOYCE form provided and signed by . provided original and copy placed in pt?s chart. Leoncio LEE RN CM
[2024-08-22] MEDS: Lisinopril 40 MG Tablet PO (10:17)
[2024-08-22] MEDS: Pantoprazole Sodium 40 MG in 0.9% Normal Saline (100mL MB+) 100 ML 330 MG IV (10:23)
--- NOTE | 2024-08-22 10:26 | CASEMGMT ---
Discharge Planning A list of?PCP providers consistent with the patient's preferred geographic region, medical needs, and insurance network was created from the [facility] webiste.? This list was provided to the patient. Azalia Russo, Discharge Planning Asst.
[2024-08-22 11:06] LABS: Mucous, Urine 0 SEEN /hpf (<or=2+)
[2024-08-22 11:12] LABS: Color, Urine Yellow (Yellow); Glucose, Dipstick Normal (Normal); Ketone-Dipstick Negative (Negative); Leukocyte Esterase-Dipstick 500 /ul (Negative); Nitrite-Dipstick Positive (Negative); Occult Blood-Urine 250 /ul (Negative); Protein-Dipstick 100 mg/dl (Negative); Specific Gravity, Urine 1.015 (1.002-1.030); Urine Bilirubin Dipstick Negative (Negative); Urine Clarity Cloudy (Clear); Urine Urobilinogen Normal (Normal)
[2024-08-22 11:19] LABS: Bacteria 1+ /hpf (None Seen); Red Blood Cells-Urine 25-50 SEEN /hpf (0-5); Squamous Epithelial Cells - UA 0-5 SEEN /hpf (0-5); White Blood Cells 50-100 SEEN /hpf (0-5)
--- NOTE | 2024-08-22 12:22 | PCM.DC.SUM ---
Providers Date of Admission: 08/21/24 Date of Discharge: 08/22/24 Primary Care Physician: No Primary Care Phys Reason For Visit: HYPERTENSIVE EMERGENCY WITH GI BLEED Diagnosis Discharge Diagnosis (1) Rectal bleed: Status: Acute Code(s): K62.5 - Hemorrhage of anus and rectum (2) Hypertensive emergency: Status: Acute Code(s): I16.1 - Hypertensive emergency Medications at Discharge Home Medications sildenafil 50 mg tablet (Viagra) 50 mg PO DAILY PRN erectile dysfunction 07/08/22 gabapentin 300 mg capsule 300 mg PO DAILY 07/13/22 amlodipine 10 mg tablet 10 mg PO DAILY #30 tabs 08/22/24 cephalexin 500 mg capsule 500 mg PO Q6H 7 days #28 caps 08/22/24 lisinopril 40 mg tablet 40 mg PO DAILY #30 tabs 08/22/24 Hospital Course Operations None Summary of Care Provided Minutes Spent on Discharge: 37 Hospital Course: Patient is a 63-year-old white male who presented to the emergency department at [facility] on 08/21/2024 for rectal bleeding. Evidently he is hard of hearing so daughter helped with a lot of history on presentation. He had had rectal bleeding for about 2 days. He denied abdominal pain and had not had any episodes like this previously. It was reported he had a colonoscopy in 2012 and had some polyps at that time but no other abnormalities. He has chronic thrombocytopenia and denied any other significant symptoms. Vital signs on presentation showed a temperature of 97.2, heart rate 77, pulse 16, blood pressure was 232/121 with a repeat 217/124, pulse ox was 95 to 100% on room air. CBC was overtly unremarkable. His initial hemoglobin was 15.6 and repeat hemoglobins have been stable. Platelet count was 50,000 which is comparable to his baseline and he had no left shift. Coags were unremarkable. Chemistry panel was overtly unremarkable with stable renal function at 1.2. Glucose was 133. Lactic acid was 1.4. TSH was found to be markedly elevated at 17.3, but his free T4 was found to be within normal limits. UA was performed and is consistent with infection showing some occult blood, nitrite, and leuk esterase with white cells at 50-100 and bacteria 1+. His only blood pressure medication at home is lisinopril and he is reportedly compliant with this. His hemoglobin was cycled and remained stable between 14.5 and 15.5 for the entire hospitalization and was checked every 6 hours x 4. This is compatible with his baseline hemoglobin. Given the stability of his hemoglobin and lack of any ongoing bleeding we will have him follow-up as an outpatient to have a colonoscopy as he is due for a screening colonoscopy as well since has been greater than 10 years since his last. We have made an appointment for him with Dr. Wisdom to be seen on 09/13/2024 at 11:30 AM. This information was given to him at the time of discharge. With regards to his blood pressure. He was initially placed on a Cardene drip which was quickly weaned. He was maintained on his home lisinopril and Norvasc 10 mg was added. This seemed to be sufficient and his blood pressure at the time of discharge was 136/89. He does not currently have a primary care physician and we did give him a list of local primary care physicians that have availability. His family ensured us that they would get him follow-up. They also have a home blood pressure cuff and intend on taking his home blood pressure once a day in the afternoon or late morning after he is taken his blood pressure medications and keep track of those to follow-up. Given the appearance of his UA on admission a urine culture was sent and he was placed on Keflex at the time of discharge. I will follow for culture results to ensure sensitivity of the organism to the antibiotics of which we discharged him. He was not taking his Synthroid on an empty stomach so we will encourage this. Prescriptions for the amlodipine 10 mg daily and the Keflex were sent to local pharmacy prior to discharge. Discharge diagnoses: Hypertensive urgency-not emergency as there was no sign of endorgan damage Rectal bleeding-hemoglobin is stable and outpatient referral made Abnormal UA with suspected UTI Chronic thrombocytopenia-stable History hepatitis C Peripheral neuropathy Erectile dysfunction History of stroke History of throat cancer Tobacco abuse Severe hearing loss Physical Exam Const no apparent distress, average body habitus and no limitations; Negative for healthy appearing Constitutional Narrative: Chronically ill-appearing upper middle-aged, white male, lying in bed sleeping, family is at bedside, patient appears older than stated age General Appearance: comfortable and well developed HEENT normocephalic and head/scalp atraumatic HEENT Narrative: Edentulous Eyes Eyes Narrative: Patient sleeping Neck no lymphadenopathy and supple Neck Narrative: Trachea midline, no noted thyroid enlargement Resp normal respiratory effort, no retractions, no use of accessory muscles and clear to auscultation bilaterally Resp Narrative: Diminished but clear Auscultation: Negative for rales, rhonchi or wheezes Cardio regular rate, regular rhythm, S1 normal heart sound, S2 normal heart sound, no murmurs, no rub, no gallops and no clicks GI normal to inspection, nondistended, normoactive bowel sounds, soft to palpation and non-tender Extremity no clubbing, cyanosis or edema Extremity Narrative: Pedal pulses are 2+ Skin skin turgor normal, no jaundice, no petechiae and no mottling Neuro Neuro Narrative: Sleeping Psych Psych Narrative: Sleeping Weight / BMI Weight Weight: 90.2 kg Body Mass Index (BMI) 26.9 ABG / Lab / Microbiology Data 08/22/24 04:20 08/22/24 04:20 Laboratory: Laboratory Results - last 24 hr 08/21/24 17:35: WBC 5.4, RBC 5.31, Hgb 15.7, Hct 46.5, MCV 87.6, MCH 29.6, MCHC 33.8, RDW Std Deviation 44.7 H, RDW Coeff of Terell 14.0, Plt Count 50 L*, MPV 14.0 H, Immature Gran % (Auto) 0.600, Neut % (Auto) 62.2, Lymph % (Auto) 27.3, [place] % (Auto) 8.6, Eos % (Auto) 1.1, Baso % (Auto) 0.2, Absolute Neuts (auto) 3.3, Absolute Lymphs (auto) 1.46, Nucleated RBC % 0, Sodium 139, Potassium 3.5, Chloride 105, Carbon Dioxide 26.0, Anion Gap 8, BUN 21 H, Creatinine 1.20, Est GFR (MDRD) Af Amer 78, Est GFR (MDRD) Non-Af 65, BUN/Creatinine Ratio 17.5, Glucose 133 H, Lactic Acid 1.4, Calcium 9.0, Phosphorus 3.1, Magnesium 2.0, Blood Type O POSITIVE, Antibody Screen NEGATIVE 08/21/24 17:36: PT 13.4, INR 1.0 08/21/24 18:19: Hgb 15.6, Hct 45.9 08/22/24 02:45: Hgb 15.4, Hct 43.4 08/22/24 04:20: WBC 7.1, RBC 4.95, Hgb 14.7, Hct 43.2, MCV 87.3, MCH 29.7, MCHC 34.0, RDW Std Deviation 44.3 H, RDW Coeff of Terell 13.9, Plt Count 48 L*, MPV 12.7 H, Immature Gran % (Auto) 0.600, Neut % (Auto) 60.9, Lymph % (Auto) 28.3, [place] % (Auto) 9.1, Eos % (Auto) 0.7, Baso % (Auto) 0.4, Absolute Neuts (auto) 4.3, Absolute Lymphs (auto) 2.00, Nucleated RBC % 0, Differential Comment SCANNED, Diff Path Review March, Platelet Estimate MKD DEC, Sodium 139, Potassium 3.6, Chloride 107, Carbon Dioxide 24.0, Anion Gap 8, BUN 21 H, Creatinine 1.19, Estim Creat Clear Calc 68.83, Est GFR (MDRD) Af Amer 79, Est GFR (MDRD) Non-Af 65, BUN/Creatinine Ratio 17.6, Glucose 108 H, Calcium 8.5, Total Bilirubin 0.60, AST 31, ALT 53, Alkaline Phosphatase 66, Total Protein 7.3, Albumin 3.3, Globulin 4.0, Albumin/Globulin Ratio 0.8 L, TSH 17.300 H, Free T4 0.84 08/22/24 10:55: Urine Color Yellow, Urine Clarity Cloudy, Urine pH 6.0, Ur Specific [place] 1.015, Urine Protein 100 H, Urine Glucose (UA) Normal, Urine Ketones Negative, Urine Occult Blood 250 H, Urine Nitrite Positive H, Urine Bilirubin Negative, Urine Urobilinogen Normal, Ur Leukocyte Esterase 500 H, Urine RBC 25-50 SEEN, Urine WBC 50-100 SEEN, Ur Squamous Epith Cells 0-5 SEEN, Urine Bacteria 1+, Urine Mucus 0 SEEN Radiography Diagnostic Testing: Radiology Impression Abdomen/Pelvis CT 08/21/24 16:59 IMPRESSION: Mild nonspecific fatty infiltrated liver.. Findings which may be consistent with nonspecific gastritis.. Diverticular disease of the colon without evidence for acute diverticulitis No definitive site for intraluminal hemorrhage. Radionuclide tagged red blood cell study would be helpful for further evaluation if clinically warranted Electronically Signed: Lance Taylor MD at 18:46 EDT , D/C Instructions Discharge Diet: Low fat / Low cholesterol Discharge Activity: Return to Normal Activity Meaningful Use Info Meaningful Use Meaningful Use Diagnoses (Choose all that apply): None applicable Ischemic Stroke Statin Dosing Therapy Reference: STATIN DOSE THERAPY REFERENCE: * Patients > 75 years receive moderate or high dose statin therapy. * Patients 75 years or YOUNGER should receive HIGH intensity statin dose unless contraindicated. You will be required to document reason for non-treatment if statin daily dose does not meet guidelines. HIGH DOSE STATIN THERAPY DAILY Atorvastatin > than or = to 40 mg Rosuvastatin > than or = to 20 mg Amlodipine + Atorvastatin > than or = to 2.5/40 mg Ezetimibe + Simvastatin 10/80 mg Simvastatin 80mg Discharge Plan Admission Admit Date/Time: 08/21/24 19:18 Primary Reason for Your Visit: Elevated blood pressure Attending Provider: Yessenia Molina Primary Care Provider: Care Physician,No Primary Consulting Providers: Zack Snow Instructions Additional Instructions / Restrictions: 1. With your rectal bleeding we did keep benign your blood counts and your blood counts were stable and normal throughout your hospitalization. Please follow-up with the stomach doctor as noted below. 2. Please take your thyroid medication either in the morning an hour before you eat or in the evening before you go to bed at least 2 hours after you have eaten anything to ensure best absorption 3. Ultimately your goal blood pressure is going to be less than 130/80. You may not be there consistently immediately when you go home and medications may need to be adjusted or added. Please take your blood pressure once daily at least 2 hours after you have taken your medications at varying times throughout the day and keep track of them. Take them to your primary care appointment as soon as you can establish with one. 4. We did check your urine and it did appear to be infected so we will start antibiotic that you will take for 7 days. Please complete all of the antibiotic. Discharge Orders/Prescriptions Prescriptions: New cephalexin 500 mg capsule 500 mg PO Q6H 7 Days Qty: 28 0RF amlodipine 10 mg Tablet 10 mg PO DAILY Qty: 30 1RF Continued sildenafil [Viagra] 50 mg tablet 50 mg PO DAILY PRN (Reason: erectile dysfunction) Rx Instructions: administer 30 minutes to 4 hours before activity gabapentin 300 mg capsule 300 mg PO DAILY Patient Comments: TAKE 1 CAPSULE BY MOUTH AT BEDTIME FOR MUSCLE SPASMS FROM STROKE lisinopril 40 mg tablet 40 mg PO DAILY Qty: 30 1RF Referrals / Follow Up: Sandro Zuniga MD [Med Staff - Active Staff] - Within 1 Week Cosme Wisdom DO [Med Staff - Active Staff] - 09/13/24 3:30 am Disposition Disposition (needs filled in before D/C Order can be placed): Home, Self Care Charges/Coding Visit Charges Inpatient E&M: 72392 Disch Hosp >30min
[2024-08-22 13:56] LABS: Pathologist Review Reviewed
== END 2024-08-22 13:40 | disposition home or self-care (01) ==
LOC: ED 20:45 → ICU 08-22 06:51
PROVIDERS: Admitting Provider Internal Medicine; Emergency Provider Emergency Medicine; Referring Provider Emergency Medicine; Visit Provider Internal Medicine
DX: K62.5 Hemorrhage of anus and rectum (principal); B18.2 Chronic viral hepatitis C; I16.0 Hypertensive urgency; D69.6 Thrombocytopenia, unspecified; E03.9 Hypothyroidism, unspecified; I10 Essential (primary) hypertension; K29.70 Gastritis, unspecified, without bleeding; G62.9 Polyneuropathy, unspecified; K57.30 Diverticulosis of large intestine without perforation or abscess without bleeding; F17.210 Nicotine dependence, cigarettes, uncomplicated; H91.90 Unspecified hearing loss, unspecified ear; Z86.73 Personal history of transient ischemic attack (TIA), and cerebral infarction without residual deficits; Z79.899 Other long term (current) drug therapy; G89.29 Other chronic pain
CPT/HCPCS: 74177; 80048; 80053; 81001; 83605; 83735; 84100; 84439; 84443; 85014; 85018; 85025; 85610; 86850; 86900; 86901; 87077; 87086; 87088; 87186; 93005; 94668; 96361; 96365; 96366; 96368; 96375; 99285; 99406; J7050; J7120; Q9967; A4216

== ENCOUNTER 2025-08-03 07:08 | Emergency (ER) | payer MEDICARE, MEDICAID, SELFPAY ==
[2025-08-03] VITALS (9 sets, daily range): BP systolic 180–230; BP diastolic 96–118; PULSE 57–64; RESP 15–21; TEMP 36.3–36.6; O2SAT 98–100; BMI 28.8; BMI 29.3
--- NOTE | 2025-08-03 07:16 | EKG12_ITS ---
Test Reason : NEURO Blood Pressure : */* mmHG Vent. Rate : 58 BPM Atrial Rate : 58 BPM P-R Int : 152 ms QRS Dur : 98 ms QT Int : 512 ms P-R-T Axes : 25 39 76 degrees QTcB Int : 502 ms Sinus bradycardia Prolonged QT Abnormal ECG Confirmed by NATALIE DURÁN, MATT ([id number]), slot editor PATRICIA DE LOS SANTOS ([id number]) on 08/04/2025 7:53:31 AM Referred By: Confirmed By: MATT ESTRADA MD
--- NOTE | 2025-08-03 07:16 | CT_ITS ---
PROCEDURE: STROKE BRAIN/HEAD WITHOUT CONT 08/03/2025 REASON FOR EXAM: NEURO DEFICIT, ACUTE, STROKE SUSPECTED TECHNIQUE: Procedure Code: CTBR.ST Modality: CT Procedure: STROKE BRAIN/HEAD WITHOUT CONT Coronal and Sagittal reconstruction series were provided. One or more dose reduction techniques were used (e.g., Automated exposure control, adjustment of the mA and/or kV according to patient size, use of iterative reconstruction technique. RADIATION DOSE SUMMARY: DLP: 796.11 mGycm COMPARISON: CT head 04/19/2024. 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 An additional focus of hemorrhage in the right basal ganglia measuring up to 7 mm in length. No acute transcortical infarct. Nonspecific round hypodense focus in the left purcell radiata may reflect enlarged perivascular space, chronic, infarct, or cystic lesion. Confluent periventricular and subcortical white matter hypodensities compatible with severe chronic microvascular ischemic changes. No brain herniation. Global cerebral volume loss. No hydrocephalus. The basal cisterns are patent. The mastoid air cells are clear. The paranasal sinuses are predominantly clear. The calvarium appears intact. 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 No CT evidence of acute transcortical infarct. Reading Location: [id number]
--- NOTE | 2025-08-03 07:17 | CT_ITS ---
PROCEDURE: CTA HEAD AND NECK W/ CONTRAST 08/03/2025 REASON FOR EXAM: STROKE TECHNIQUE: Procedure Code: CTCTA.HDNCK Modality: CT Procedure: CTA HEAD AND NECK W/ CONTRAST Multidetector CT angiography of the head and neck with intravenous contrast was performed with multiplaner and maximum intensity projection (MIP) reconstructions. CONTRAST: Isovue 370 VOLUME: 100 mL One or more dose reduction techniques were used (e.g., Automated exposure control, adjustment of the mA and/or kV according to patient size, use of iterative reconstruction technique). RADIATION DOSE SUMMARY: DLP: 752.72 mGycm COMPARISON: None available FINDINGS: CTA NECK: There is a standard three-vessel configuration of the aortic arch. Right carotid artery: Atheromatous plaque in the proximal right common carotid artery with a few punctate foci of calcifications. There are a few luminal irregularities at this region where there are areas of small outpouchings measuring up to 1.3 mm (axial image 180). Short-segment calcified atheromatous plaque in the right carotid bulb extending to the right internal carotid artery contributing to multifocal stenosis of the right cervical internal carotid artery including a 60-70% stenosis at the origin and 80-85% stenosis more distally. Left carotid artery: Intimal flap in the proximal left common carotid artery compatible with dissection (axial image 150). The adjacent filling defect likely reflect intramural thrombus contributing to 50- 60% luminal stenosis. Atheromatous plaque in the carotid bulb extending to the internal carotid artery contributes to 60% focal stenosis at the origin of the left cervical internal carotid artery. Cervical vertebral arteries: [id number] multifocal stenosis of the proximal right cervical internal carotid artery. There is a focal dilatation of the right cervical carotid artery measuring up to 4 mm in diameter at the level of C2 (axial image 293). The left cervical carotid artery is patent without high-grade stenosis. Left dominant vertebral artery. The left internal jugular vein is non-opacified. Assessment for carotid stenosis is performed utilizing NASCET criteria. NASCET carotid stenosis criteria: 0% - none, 1-49% - mild, 50-69% - moderate, 70-89% - severe, 90-99% - critical. % ICA stenosis = (normal distal cervical ICA diameter - narrowest cervical ICA diameter / normal distal cervical ICA diameter) x 100. CTA Head: Atherosclerotic calcification of the carotid siphons without significant luminal narrowing. The petrous, cavernous, and intracranial internal carotid arteries are patent without high-grade stenosis. The proximal anterior cerebral arteries are patent without high-grade stenosis. The proximal middle cerebral arteries are patent without high-grade stenosis. The intradural vertebral arteries are patent without high-grade stenosis. The basilar artery is patent without high-grade stenosis. The proximal posterior cerebral arteries are patent without high-grade stenosis. No dominant intracranial aneurysm or high flow arteriovenous malformation is identified. Ancillary findings: Cervical spondylosis. Edentulous. CT/CTA Head AND Neck W/ Contrast IMPRESSION: 1. 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 Li andrew adjacent intramural thrombus contributing to 50-60% luminal stenosis. 2. Severe multifocal stenosis of the proximal right internal carotid artery sec ondary to atherosclerotic plaque. 3. Moderate focal stenosis at the origin of the left cervical internal carotid artery. 4. Ziptkqwq-[id number] multifocal stenosis of the proximal right cervical analysis intern al carotid artery. 5. 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 6. Non-opacification of the left internal jugular vein concerning for underlyin g occlusion or thrombus. 7. No large vessel occlusion intracranially. The critical findings in the findings and impression above were relayed directl y by Dr. Corazon Dyer by telephone to Dr. Allison Boudreaux on 08/03/2025 at 8:22 am with readback verification. Reading Location: [facility]
--- NOTE | 2025-08-03 07:23 | EDS_ITS ---
HPI History of Present Illness Chief Complaint: Stroke Alert Narrative Narrative: Patient is a 64-year-old male presenting to the emergency department as a stroke alert. Patient has a past medical history of GI bleed, hypertensive urgency, hypertension noncompliant with medications, hepatitis C and remote history of throat cancer in remission. Patient per family did not take his blood pressure medication. Patient is hard of hearing, but can read lips. Primary history is obtained from family after evaluation of patient in the ambulance bay. They report that he has been feeling unwell the past few days. On further questioning of this, they state he has been tired. Went to bed around 11 PM, LKW. This morning when he woke up around 7 AM he was complaining of vomiting and his bed was soaked with sweat per family. This is why EMS was called. Patient denies headache, vision changes, numbness or weakness in his extremities, neck pain, chest pain, shortness of breath, abdominal pain. Not on any OAC. EMS gave 10 mg labetalol about 10 minutes prior to arrival. Prior similar symptoms: Yes PFSH PFSH Medical History Wears dentures Depression Bipolar disorder Alcohol use Difficulty swallowing Gastric reflux Shortness of breath on exertion Smoker Thrombocytopenia Peripheral neuropathy Fractures Neck fracture Throat cancer CVA (cerebral vascular accident) Hypertension Home Medications ?Medication ?Instructions ?Recorded ?Last Taken ?Type sildenafil 50 mg tablet (Viagra) 50 mg PO DAILY PRN er ectile 07/08/22 Unknown History dysfunction amlodipine 10 mg tablet 10 mg PO DAILY #30 tabs 08/13 0 Unknown Rx lisinopril 40 mg tablet 40 mg PO DAILY #30 tabs 08/13 024 Unknown Rx Allergy/AdvReac Type Severity Reaction Status Date / Time No Known Allergies Allergy Verified 08/03/25 08:12 Family History Grandmother Hypertension maternal Grandfather Hypertension paternal CVA (cerebral vascular accident) paternal Social History household members: spouse number of children: 5 current occupational status: disabled Smoking Status: Current every day smoker tobacco type: cigarettes Tobacco: How many years used: 30 alcohol intake: current alcohol intake frequency: 3 or more drinks per day Alcohol type: beer and hard liquor substance use type: marijuana ROS ROS ED ROS Narrative see HPI EXAM Physical Exam Narrative Exam Narrative: Vital signs: Reviewed General: Alert and orientedx3. No acute distress HEENT: Head is normocephalic and atraumatic, sinuses nontender, pupils equal round and reactive. Nares are patent. Oropharynx and throat exams normal. Neck: Supple without lymphadenopathy nontender Cardiovascular: Regular rate and rhythm, no murmurs. No rubs or gallops. Normal S1 and S2 Respiratory: Clear to auscultation bilaterally. No wheezes, rales, rhonchi Abdominal: Soft and nontender. Normal bowel sounds. No guarding or rebound. Nonsurgical abdomen Extremities: No tenderness. No bruising. Normal range of motion. Normal sensation. Skin: No rash or redness. The rest of the physical exam is unremarkable Const Vital Signs: 08/03/25 07:09 08/03/25 07:19 08/03/25 07:20 Temperature 97.8 F Temperature Source Temporal Pulse Rate Respiratory Rate Blood Pressure 230/118 H Blood Pressure Mean 155 Pulse Ox Oxygen Delivery Method Room Air 08/03/25 07:28 08/03/25 07:42 08/03/25 07:46 Temperature Temperature Source Pulse Rate 59 L 57 L 60 Respiratory Rate 21 H 15 Blood Pressure 217/112 H 220/118 H 214/118 H Blood Pressure Mean 147 152 150 Pulse Ox 99 98 Oxygen Delivery Method 08/03/25 07:51 08/03/25 07:52 08/03/25 08:05 Temperature 97.4 F L Temperature Source Pulse Rate 60 58 L Respiratory Rate 18 19 H Blood Pressure 214/118 H 186/103 H Blood Pressure Mean 150 130 Pulse Ox 100 99 Oxygen Delivery Method Room Air 08/03/25 08:10 08/03/25 08:16 Temperature Temperature Source Pulse Rate 62 64 Respiratory Rate 17 16 Blood Pressure 180/98 H 186/96 H Blood Pressure Mean 125 126 Pulse Ox 98 Oxygen Delivery Method MDM MDM MDM Narrative Medical decision making narrative: Patient is a 64-year-old male presenting to the emergency department as a stroke alert. Patient was seen and examined immediately on arrival in ambulance bay. NIH of 2 however patients family states that he does have some baseline dysarthria. Blood pressure on arrival of 230/118, pulse of 59, respiration 21, afebrile saturating 99% on room air. 10 mg of labetalol was already given by EMS about 10 minutes prior to arrival. Patient taken directly to CT. CT scans were reviewed by myself. There appears to be a hemorrhagic stroke in the cerebellum and in the right sided basal ganglion. Discussed CT and CTA with Dr. Dyer, radiologist. Radiology read with intraparenchymal hemorrhages in the pontine tegmentum and right basal ganglia. CTA shows findings compatible with proximal left common carotid artery dissection. Likely adjacent intramural thrombus contributing to 50-60% luminal stenosis. Additional findings can be seen in the radiology report. Cardene drip was started for SBP goal of 140. Discussed with Dr. Alex Arce, stroke neurologist on telerobot, who evaluated the patient and agreed with cardene drip and goal SBP. Will closely monitor mental status given brain stem stroke and concern for possible herniation/swelling. Head of bed elevated to above 30 degrees. No OAC to reverse. Did consider arterial line for close BP control, however do not have the arterial line set up here in the ED. Reevaluated patient. Repeat NIH stable at 2. GCS of 15. Critical care air transport from [facility] sent and patient accepted by Dr. Gonzáles in the ER. CBC with no leukocytosis and a normal hemoglobin. Chronic thrombocytopenia of 54. PT and PTT within normal limits. CMP with mild hypokalemia of 3.2, mild MONY. IV repletion ordered. Magnesium level ordered. Troponin within normal limits. EKG shows sinus bradycardia at a rate of 58 and a prolonged QT of 512. Zofran was already given on arrival for active vomiting, will hold off on any other antiemetics at this time. Patient states nausea and vomiting is much better. I did discuss findings with the patient's family and patient at bedside extensively. Explained the need for transport to higher level of care. They understand and are agreeable with the plan. At time of transport, magnesium levels, UA and urine drug screen pending. Reflex troponins were uncollected. Clinical impression: Hemorrhagic stroke Hypertensive emergency Hypokalemia Chronic thrombocytopenia History & Record Review Discussion w/independent historian: EMS personnel, Patient and Family Additional record(s) reviewed:: Prior ED visit and Prior labs Lab Data Attestation: I reviewed the patient's lab results. Labs: Laboratory Results - last 24 hr 08/03/25 06:58 WBC 7.3 RBC 5.25 Hgb 16.1 Hct 46.0 MCV 87.6 MCH 30.7 MCHC 35.0 RDW Std Deviation 41.9 RDW Coeff of Terell 13.2 Plt Count 54 L MPV 13.7 H Immature Gran % (Auto) 1.000 H Neut % (Auto) 52.1 Lymph % (Auto) 36.1 Boyle % (Auto) 9.7 Eos % (Auto) 0.8 Baso % (Auto) 0.3 Absolute Neuts (auto) 3.8 Absolute Lymphs (auto) 2.64 Nucleated RBC % 0 PT 13.0 INR 1.0 APTT 25.5 Sodium 140 Potassium 3.2 L Chloride 101 Carbon Dioxide 24.2 Anion Gap 15 BUN 20 H Creatinine 1.34 H Estim Creat Clear Calc 66.17 Est GFR (MDRD) Non-Af 59 L BUN/Creatinine Ratio 15.1 Glucose 139 H Calcium 9.5 Total Bilirubin 0.60 AST 37 ALT 44 Alkaline Phosphatase 79 Troponin T High Sens 15 Total Protein 8.4 Albumin 4.4 Globulin 4.0 Albumin/Globulin Ratio 1.1 Radiography Diagnostic Testing: Clinical Impression(s) from Imaging Studies Brain CT 08/03/25 07:16 IMPRESSION: Intraparenchymal hemorrhages in the pontine tegmentum and right basal ganglia. No CT evidence of acute transcortical infarct. Reading Location: [facility] Head/Neck CTA 08/03/25 07:17 IMPRESSION: 1. 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 Likely adjacent intramural thrombus contributing to 50-60% luminal stenosis. 2. Severe multifocal stenosis of the proximal right internal carotid artery secondary to atherosclerotic plaque. 3. Moderate focal stenosis at the origin of the left cervical internal carotid artery. 4. Aajjcatw-fj-cieoye multifocal stenosis of the proximal right cervical internal carotid artery. 5. 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 6. Non-opacification of the left internal jugular vein concerning for underlying occlusion or thrombus. 7. No large vessel occlusion intracranially. The critical findings in the findings and impression above were relayed directly by Dr. Corazon Dyer by telephone to Dr. Allison Boudreaux on 08/03/2025 at 8:22 am with readback verification. 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 Critical Care Time Critical Care Time: Yes Critical care time (excluding procedures): 30-74 minutes Discharge Plan Triage Chief Complaint: Stroke Alert ED Provider: Allison Boudreaux Dx/Rx/DC Orders Prescriptions: No Action sildenafil [Viagra] 50 mg tablet 50 mg PO DAILY PRN (Reason: erectile dysfunction) Rx Instructions: administer 30 minutes to 4 hours before activity amlodipine 10 mg Tablet 10 mg PO DAILY Qty: 30 1RF lisinopril 40 mg tablet 40 mg PO DAILY Qty: 30 1RF Primary Care Provider: Care Physician,No Primary Referrals: Care Physician,No Primary [Primary Care Provider, Medical] Print Language: Yi Disposition Disposition: Acute Care Hospital Discharge Location: [facility] Discharge Date/Time: 08/03/25 08:36 NIHSS NIHSS 1a. Level of Consciousness: 0 - Alert; keenly responsive 1b. LOC Questions: 0 - Answers BOTH questions correctly 1c. LOC Commands: 0 - Performs BOTH tasks correctly 2. Best Gaze: 0 - Normal 3. Visual: 0 - No visual loss 4. Facial Palsy: 0 - Normal symmetrical movements 5a. Left Arm: 0 - No drift; arm holds 90 (or 45) degrees for full 10 seconds 5b. Right Arm: 0 - No drift; arm holds 90 (or 45) degrees for full 10 seconds 6a. Left Le - No drift; leg holds 30-degree position for full 5 seconds 6b. Right Le - No drift; leg holds 30-degree position for full 5 seconds 7. Limb Ataxia: 0 - Absent 8. Sensory: 0 - Normal; no sensory loss 9. Best Language: 1 - Vmvj-[id number] aphasia; 10. Dysarthria: 1 = [id number] dysarthria; 11. Extinction and Inattention: 0 - No abnormality Total: 2 Stroke Questions Stroke Team Activated: Yes Reviewed Inclusion/Exclusion criteria: Yes IV Thrombolytic Administered: No
--- OUTSIDE RECORDS SUMMARY | 2025-08-03 07:29 | XMS RPT_ITS | CCD ---
Author Organization [facility] Care Team Providers Care Evaporator Supervisor Name Role Phone Care Physician, No Primary Primary Care Provider Unavailable Dr. Kita Barboza Attending Provider Dr. Sandro Raza Referring Provider Edy Zack Consulting Unavailable Ungur, Remus Referring Unavailable Yessenia Molina Attending Unavailable Edy Zack Admitting Unavailable Care Physician, No Primary Primary Care Unava ilable Yessenia Molina Consulting Unavailable Zack Snow Attending Unavailable Sandro Raza Primary Care Unavailable Ungur, Remus Referring Unavailable Maurice Garcias Attending Unavailable Sandro Raza Primary Care Unavailable FriendCosme Attending Unavailable Care Physician, No Primary Primary Care Unava ilable Edy, Zack Admitting Unavailable Edy, Zack Consulting Unavailable Ungur, Remus Referring Unavailable Yessenia Molina Attending Unavailable Care Physician, No Primary Primary Care Unava ilable Cosme Wisdom Attending Unavailable Sandro Raza Referring Unavailable Care Physician, No Primary Primary Care Unava ilable Care Physician, No Primary Referring Unava ilable FriendCosme Attending Unavailable Care Physician, No Primary Primary Care Unava ilable Zack Snow Attending Unavailable Sandro Raza Primary Care Unavailable Sandro Raza Referring Unavailable Medications Current Medications Medication Drug Class(es) Dates Sig (Normalized) Sig (Original) gabapentin 300 mg oral capsule (6 sources) Anti-epileptic Agent Start: 07-08-2022 End: 07-13-2022 take 300 mg by mouth once daily Gabapentin Active 300 MG PO DAILY July 13, 2022 3:12pm lisinopril 40 mg oral tablet (6 sources) Angiotensin Converting Enzyme Inhibitor Start: 07-08-2022 End: 07-13-2022 take 40 mg by mouth once daily Lisinopril Active 40 MG PO DAILY July 13, 2022 3:13pm melatonin 3 mg oral tablet (6 sources) Start: 07-13-2022 take 3 mg by mouth at bedtime Melatonin Active 3 MG PO AT BEDTIME July 13, 2022 3:13pm Start: 07-08-2022 End: 07-13-2022 Melatonin Discontinued EACH PO July 08, 2022 12:00am July 13, 2022 3:13pm sildenafil 50 mg oral tablet (3 sources) Phosphodiesterase 5 Inhibitor Start: 07-08-2022 Sildenafil (Viagra) 50 mg tablet Active 50 MG PO DAILY July 08, 2022 12:00am administer 30 minutes to 4 hours before activity Completed/Discontinued Medications Medication Drug Class(es) Dates Sig (Normalized) Sig (Original) acetaminophen 325 mg / oxyCODONE hydrochloride 5 mg oral tablet (3 sources) Opioid Agonist Start: 07-03-2015 End: 08-20-2015 take 1 tablet by mouth every four hours as needed Oxycodone-Acetamin ophen Discontinued 1 TABLET PO EVERY 4 HOURS NEEDED July 03, 2015 12:00am August 20, 2015 7:39pm pantoprazole 40 mg delayed release oral tablet (3 sources) Proton Pump Inhibitor Start: 07-03-2015 End: 07-03-2015 take 40 mg by mouth once daily Pantoprazole Discontinued 40 MG PO DAILY 120 July 03, 2015 12:00am July 03, 2015 8:26am Problems Problem Classification Problem Date Documented Da te Episodic/Chronic Abdominal pain (9 sources) Right upper quadrant pain; Translations: [Right upper quadrant pain] 10-04-2020 Episodic Acute cerebrovascular disease (3 sources) Hemorrhagic cerebral infarction; Translations: [Nontraumatic intracerebral hemorrhage, unspecified] 10-05-2020 Chronic Coagulation and hemorrhagic disorders (4 sources) Platelet count below reference range; Translations: [Thrombocytopenia, unspecified] Chronic E Codes: Natural/environment (3 sources) Dog bite - wound; Translations: [Bitten by dog, initial encounter] 08-31-2021 Episodic Essential hypertension (3 sources) Hypertensive disorder; Translations: [Essential (primary) hypertension] 07-13-2022 Chronic Gastritis and duodenitis (3 sources) Gastroduodenitis; Translations: [Gastroduodenitis, unspecified, without bleeding] 10-04-2020 Episodic Gastrointestinal hemorrhage (2 sources) Hemorrhage of anus and rectum; Translations: [Hemorrhage of anus and rectum] Onset: 08-22-2024 Episodic Hepatitis (3 sources) Viral hepatitis C; Translations: [Unspecified viral hepatitis C without hepatic coma] 10-04-2020 Episodic Hypertension with complications and secondary hypertension (1 source) Hypertensive emergency; Translations: [Hypertensive emergency] Onset: 08-22-2024 Chronic Other nervous system disorders (3 sources) Peripheral nerve disease ; Translations: [Polyneuropathy, unspecified] 07-13-2022 Chronic Other non-traumatic joint disorders (3 sources) Hip pain; Translations: [Pain in left hip] 08-21-2015 Episodic Other non-traumatic joint disorders (1 source) Femoral acetabular impingement; Translations: [Other specified joint disorders, unspecified hip] 06-28-2023 Episodic Residual codes; unclassified (1 source) Disorientation, unspecified; Translations: [Disorientation, unspecified] Onset: 09-10-2024 Episodic Sprains and strains (3 sources) Strain of thoracic region; Translations: [Strain of muscle and tendon of unspecified wall of thorax, initial encounter] 10-12-2015 Episodic Results Test Name Value Interpretation Reference Range Facility MR/PAT.[facility] 10-29-2024 /[facility] Medical Records Department [address] [place] [address] PAT - Anesthesia 10/29/24 1834 MR#: [id number] Acct: [id number] Name: AGUSTIN GUERRIER JrKaren Rep #: [id number] : 1960 63 From: Jose Reeves MD PCP: Care Physician,No Primary Status:PRE [facility] [place] Y Race: C Location: EN Pre-Assessment Diagnosis/Proposed Procedure Planned Operative Procedure(s): COLONOSCOPY, EGD Anesthesia History 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 When Was Last Pacemaker Check QUESTION #4 FULL TEXT: You/Your Family Experience fever (hyperthermia) with Anesthesia Last Oral Intake Last Oral intake: Last Oral Intake NPO since Meds taken in AM with sips of water? Meds patient instructed to take am of surgery PONV PONV - curator of photography and prints: PONV - curator of photography and prints Female No 10/29/24 14:53 HX of Motion Sickness No 10/29/24 14:53 HX of N/V After Surgery No 10/29/24 14:53 Non-Smoker Yes 10/29/24 14:53 Duration of Surgery greater No 10/29/24 14:53 than 60 minutes Number of Risk Factors 1 10/29/24 14:53 PONV Score Low Risk 10/29/24 14:53 Height Weight Height Weight: Anesthesia: Height Weight Height 6 ft 08/21/24 21:35 Respiratory Assessment Respiratory Assessment - curator of photography and prints: Respiratory Tract Infection Hx - curator of photography and prints Hx Respiratory Tract Infection No 10/29/24 14:53 STOP Sleep Apnea STOP Sleep Apnea - curator of photography and prints: STOP Sleep Apnea - curator of photography and prints Hx Hypertension Yes: CONTROLLED WITH MEDS 10/29/24 14:53 NOW Hx Sleep Apnea No 10/29/24 14:53 CPAP No 07/02/15 21:55 BIPAP No 07/02/15 21:55 Do you snore loudly (louder No 10/29/24 14:53 than talking or can be heard Do you often feel tired/ No 10/29/24 14:53 fatigued/ sleepy during daytime? Has anyone observed you stop No 10/29/24 14:53 breathing during sleep? STOP Results Negative 10/29/24 14:53 QUESTION #5 FULL TEXT : Do you snore loudly (louder than talking or can be heard through closed doors)? 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 Specify any problems Hx of Preganancy in last 3 N/A 10/29/24 14:53 Months Nurse Filling Out Transfusion CPOWERS2 10/29/24 14:53 Questions: Date: 10/29/24 10/29/24 14:53 Time: 14:56 10/29/24 14:53 Patient unable to answer at this time (ie. confused, unrespo /Reproductio n History /Reproductiv e History - curator of photography and prints: /Reproductiv e Hx- curator of photography and prints Hx Now Gestational Age (in weeks): EDC: Hx Hx Para Hx Section SAB PFSH Medical History (Updated 10/29/24 @ 15:01 by Alonzo Shea) Wears dentures Depression Bipolar disorder Alcohol use Difficulty swallowing Gastric reflux Shortness of breath on exertion Smoker Thrombocytopenia Peripheral neuropathy Fractures Neck fracture Throat cancer CVA (cerebral vascular accident) Hypertension Home Medications ???Medication ???Instructions ???Recorded ???Last Taken ???Type sildenafil 50 mg tablet (Viagra) 50 mg PO DAILY PRN erectile 07/08/22 Unknown History dysfunction amlodipine 10 mg tablet 10 mg PO DAILY #30 tabs 08/22/24 Unknown Rx lisinopril 40 mg tablet 40 mg PO DAILY #30 tabs 08/22/24 Unknown Rx Allergy/AdvReac Type Severity Reaction Status Date / Time No Known Allergies Allergy Verified 10/29/24 14:52 Family History Grandmother Hyperte (more content not included)... Normal [facility] Gastroenterology Visit Repor ton 09-13-2024 Gastroenterology Visit Report [facility]enter[facility] [address] [place] [address] OFFICE VISIT Date of Service: 09/13/24 MR#: [id number] Acct: [id number] Name: AGUSTIN GUERRIER Jr. Rep #: [id number] : 1960 Provider: Cosme Wisdom, DO Age/Sex: 63/M Location[place] [facility] [place] Status: Signed Intake Vital Signs 08/21/24 21:35 Height 6 ft Intake Visit Reasons: Hospital FU Chief Complaint: Low platelet count Allergies No Known Allergies Allergy (Verified 08/21/24 16:46) Medications ???Medication ???Instructions ???Recorded ???Confirmed ???Type sildenafil 50 mg tablet (Viagra) 50 mg PO DAILY PRN erectile 07/08/22 09/13/24 History dysfunction amlodipine 10 mg tablet 10 mg PO DAILY #30 tabs 08/22/24 09/13/24 Rx lisinopril 40 mg tablet 40 mg PO DAILY #30 tabs 08/22/24 09/13/24 Rx PFSH Medical History Smoker Thrombocytopenia Peripheral neuropathy Fractures Neck fracture Throat cancer CVA (cerebral vascular accident) Hypertension Family History Grandmother Hypertension maternal Grandfather Hypertension paternal CVA (cerebral vascular accident) paternal Social History household members: spouse number of children: 5 current occupational status: disabled Smoking Status: Current every day smoker tobacco type: cigarettes Tobacco: How many years used: 30 alcohol intake: current alcohol intake frequency: 3 or more drinks per day Alcohol type: beer and hard liquor substance use type: marijuana HPI HPI Chief Complaint: Low platelet count Details: AGUSTIN GUERRIER, is a 63 M who presents to the office today for hospital follow up. [facility] hospitalization 08.21.24 - 08.22.24 GI bleed - rectal bleeding for 2 days abd/pelvis CT 08.21.24 Mild nonspecific fatty infiltrated liver.. Findings which may be consistent with nonspecific gastritis.. Diverticular disease of the colon without evidence for acute diverticulitis No definitive site for intraluminal hemorrhage. Radionuclide tagged red blood cell study would be helpful for further evaluation if clinically warranted OV 09.13.24 pt reports continued rectal bleeding. Pt reports HB and difficulty swallowing since stroke in 2019. Pt reports a daily bm, endorses blood in his stool with each bm. ROS Const Constitutional: Positive for fatigue; No fever(s) or weight change ENT ENT: Positive for difficulty swallowing Gastro GI: Positive for change in bowel habits, constipation, heartburn, difficulty swallowing and Blood in stool; No abdominal pain, belching, bloating, change in stool character, coffee ground emesis, cramping, diarrhea, feeling full early, excessive flatus, incontinent of stools, Vomiting blood/hematemesis, loose stools, Black,tarry stools, nausea/dyspepsia, pain with swallowing, vomiting or other Musc Musculoskeletal: Positive for abnormal gait, joint pain, back pain, numbness, stiffness, tingling, Arthritis, restless legs and leg pain at night Skin Skin: No yellowing of the eye or itchy eyes Neuro Neurology: Positive for abnormal gait, numbness, tingling and restless legs Psych Psychiatric: No anxiety and No depression Endo Endocrine: Positive for fatigue; No weight change Aller/Imm Allergy/Immunologic: No itchy eyes [place]/Lymp Hematologic/Lymphatic : Positive for easy bleeding; No easy bruising Exam Const General: cooperative and comfortable Nutritional Appearance: average body habitus and well nourished [facility] Head: normal to inspection Ears: hearing grossly normal bilaterally Nose: external nose normal Face and sinus: normal facial exam Mouth: oral mucosae normal Throat: posterior oropharynx normal Eyes General: appearance normal, both eyes and all related structures Neck Neck: normal visual inspection Chest Chest palpation inspection: normal inspection of the chest and normal palpation of entire chest wall Resp Effort Inspection: normal respiratory effort Auscultation: Bilateral: Clear to Auscultation Cardio Palpation: normal PMI Rate: regular rate Rhythm: regular rhythm GI Inspection: normal to inspection Auscultation: normal bowel sounds Percussion: normal to percussion Palpation: no hepatosplenomegaly Skin General: no rashes or lesions noted Neuro General: patient alert Extrem General: normal to inspection Psych Affect: normal affect Assessment and Plan Assessment and Plan (1) Hepatitis C: Status: Chronic (2) Thrombocytopenia: Status: Chronic (3) GI bleed: Status: Acute Plan: 63-year-old white male who presented to the emergency department at [facility] on 08/21/2024 for rectal bleeding. Evidently he is hard of heari (more content not included)... Normal [facility] Urine Cultureon 08-25-2024 U[facility] Staphylococcus haemolyticus [place] Count 50,000-80,000 Staphylococcus haemolyticus: REACTION cefOXitin Susc Islt Clindamycin.induced Susc Islt POS Gentamicin Islt ALAN <=0.5 S Linezolid Islt ALAN 2 S Nitrofurantoin Islt ALAN <=16 S Oxacillin Susc Islt <=0.25 S Tetracycline Islt ALAN >=16 R Vancomycin Islt ALAN 1 S Normal [facility] Comment on above: Performed By: #### L 100.0600 #### [facility] [address] [place], [address] CBC W/Diff, Automatedon - PATH REV Reviewed Normal [facility] Comment on above: Result Comment: [facility] ED Thrombocytopenia. Clinical correlation necessary. Carlos A Ulloa M.D. 08/22/24 AMENDED REPORT 08/22/24 1356 PATH REV previously reported as: Michela choudhary Performed By: #### L 100.0600 #### [facility] [address] [place], [address] Comprehensive Metabolic Prof ilon 08-22-2024 Albumin [Mass/Vol] 3.3 g/dL Normal 3.2-5.0 [facility] Comment on above: Performed By: #### L 100.0600 #### [facility] [address] [place], [address] Albumin/Globulin [Mass ratio] 0.8 {ratio} Low 0.9-2.4 [facility] Comment on above: Performed By: #### L 100.0600 #### [facility] [address] [place], [address] ALK P 66 U/L Normal 45-117 [facility] Comment on above: Performed By: #### L 100.0600 #### [facility] [address] [place], [address] ALT [Catalytic activity/Vol] 53 U/L Normal 16-61 [facility] Comment on above: Performed By: #### L 100.0600 #### [facility] [address] [place], [address] AST [Catalytic activity/Vol] 31 U/L Normal 15-37 [facility] Comment on above: Performed By: #### L 100.0600 #### [facility] [address] [place], [address] Bilirubin [Mass/Vol] 0.60 mg/dL Normal 0.20-1.00 [facility] Comment on above: Result Comment: For patients on eltrombopag therapy, use of Dimension [place] TBIL is not recommended. Performed By: #### L 100.0600 #### [facility] [address] [place], [address] BUN/CRE 17.6 RATIO Normal 10-20 [facility] Comment on above: Performed By: #### L 100.0600 #### [facility] [address] [place], [address] CA,Total 8.5 mg/dL Normal 8.5-10.1 [facility] Comment on above: Performed By: #### L 100.0600 #### [facility] [address] [place], [address] Chloride [Moles/Vol] 107 mmol/L Normal 98-107 [facility] Comment on above: Performed By: #### L 100.0600 #### [facility] [address] [place], [address] CO2 [Moles/Vol] 24.0 mmol/L Normal 21.0-32.0 [facility] Comment on above: Performed By: #### L 100.0600 #### [facility] [address] [place], [address] Creatinine [Mass/Vol] 1.19 mg/dL Normal 0.70-1.30 [facility] Comment on above: Result Comment: The validity of the calculated GFR GFRAA in patients over 70 years has not been determined. Clinical correlation is essential. Performed By: #### L 100.0600 #### [facility] [address] [place], [address] ECRCL 68.83 ml/min Normal [facility] Comment on above: Performed By: #### L 100.0600 #### [facility] [address] [place], [address] EST GFR - AA 79 mL/min Normal >60 [facility] Comment on above: Result Comment: Afri can Ni[place]an GFR Calc Performed By: #### L 100.0600 #### [facility] [address] [place], [address] GAP 8 Normal 5-15 [facility] Comment on above: Performed By: #### L 100.0600 #### [facility] [address] [place], [address] GFR/1.73 sq M.predicted among non-blacks MDRD (S/P/Bld) [Vol rate/Area] 65 mL/min/{1.73_m2} Normal >60 [facility] Comment on above: Result Comment: Non- GFR Calc Performed By: #### L 100.0600 #### [facility] [address] [place], [address] Globulin (S) [Mass/Vol] 4.0 g/dL Normal 2.2-4.2 [facility] Comment on above: Performed By: #### L 100.0600 #### [facility] [address] [place], [address] Glucose [Mass/Vol] 108 mg/dL High 74-106 [facility] Comment on above: Result Comment: Fast ing Glucose result from 100 to 125 mg/dL suggests IMPAIRED HOMEOSTASIS per A.D.A. criteria. Performed By: #### L 100.0600 #### [facility] [address] [place], [address] Potassium [Moles/Vol] 3.6 mmol/L Normal 3.5-5.1 [facility] Comment on above: Performed By: #### L 100.0600 #### [facility] [address] [place], [address] Sodium [Moles/Vol] 139 mmol/L Normal 136-145 [facility] Comment on above: Performed By: #### L 100.0600 #### [facility] [address] [place], [address] T PROT 7.3 g/dL Normal 6.4-8.2 [facility] Comment on above: Performed By: #### L 100.0600 #### [facility] [address] [place], [address] Urea nitrogen [Mass/Vol] 21 mg/dL High 7-18 [facility] Comment on above: Performed By: #### L 100.0600 #### [facility] [address] [place], [address] HH, Hemoglobin AND Hematocri ton 08-22-2024 HCT Normal 40-54 [facility] Comment on above: Result Comment: Canc elled via OM: MD Ordered Performed By: #### L 100.0600 #### [facility] [address] [place], [address] HGB Normal 13.0-16.5 [facility] Comment on above: Result Comment: Canc elled via OM: MD Ordered Performed By: #### L 100.0600 #### [facility] [address] [place], [address] HCT Normal 40-54 [facility] Comment on above: Result Comment: Canc elled via OM: MD Ordered Performed By: #### L 100.0600 #### [facility] [address] [place], [address] HGB Normal 13.0-16.5 [facility] Comment on above: Result Comment: Stevan love via OM: Ordered Performed By: #### L 100.0600 #### [facility] [address] [place], [address] Hematocrit (Bld) [Volume fraction] 43.4 % Normal 40-54 [facility] Comment on above: Performed By: #### L 100.0600 #### [facility] [address] [place], [address] Hemoglobin (Bld) [Mass/Vol] 15.4 g/dL Normal 13.0-16.5 [facility] Comment on above: Performed By: #### L 100.0600 #### [facility] [address] [place], [address] T4 Free Directon 08-22-2024 T4 FREE DIRECT 0.84 ng/dL Normal 0.76-1.46 [facility] Comment on above: Performed By: #### L 100.0100, L503.6005, L500.4050 #### [facility] [address] [place], [address] Thyroid Stim Hormone (TSH)on 08-22-2024 TSH 17.300 uIU/mL High 0.358-3.740 [facility] Comment on above: Performed By: #### L 100.0600 #### [facility] [address] [place], [address] Urinalysis, Completeon 08-22 BACTERIA 1+ /hpf Normal None Seen [facility] Comment on above: Order Comment: CLEAN CATCH Performed By: #### L 400.0001 #### [facility] [address] [place], [address] EPI,SQUAMOUS 0-5 SEEN Normal 0-5 [facility] Comment on above: Order Comment: CLEAN CATCH Performed By: #### L 400.0001 #### [facility] [address] [place], [address] RBC 25-50 SEEN Normal 0-5 [facility] Comment on above: Order Comment: CLEAN CATCH Performed By: #### L 400.0001 #### [facility] [address] [place], [address] WBC 50-100 SEEN Normal 0-5 [facility] Comment on above: Order Comment: CLEAN CATCH Performed By: #### L 400.0001 #### [facility] [address] [place], [address] Mucus Ql (Urine sed) 0 SEEN Normal [facility] Comment on above: Order Comment: CLEAN CATCH Performed By: #### L 400.0001 #### [facility] [address] [place], [address] 12 Lead EKGon 08-21-2024 12 Lead EKG [facility] Cardiovascular Services [address] [place] [address] 12 Lead EKG 08/21/242049 MR#: [id number] Acct: [id number] Name: AGUSTIN GUERRIER Jr. Rep #: [id number] : 1960 63 From: Tobin Marley MD Attending Dr: Dr. Yessenia Molina, DO Status: DIS I NO Ordering Dr: Zack Snow MD Date: 08/21/24 Location: ICU Sex: M C Admitted: 08/21/24 Test Reason : GI BLEED Blood Pressure : / mmHG Vent. Rate : 066 BPM Atrial Rate : 066 BPM P-R Int : 148 ms QRS Dur : 090 ms QT Int : 446 ms P-R-T Axes : 025 030 060 degrees QTc Int : 467 ms Normal sinus rhythm Normal ECG Confirmed by TOBIN MARLEY MD ([id number]), editor publications PATRICIA DE LOS SANTOS ([id number]) on 08/23/2024 2:09:56 PM Referred By: Светлана Chance Confirmed By:TOBIN MARLEY MD 08/23/24 1410 Date Tobin Marley MD CC: Dr. Yessenia Molina DO; Dr. Zack Snow MD; Dr. Светлана Chance DO; No Primary Care Physician Signed Normal [facility] Abdomen/Pelvis W IV Cont ONL Yon 08-21-2024 Abdomen/Pelvis W IV Cont ONLY [facility] Imaging Services [address] [place] [address] Abdomen/Pelvis W IV Cont ONLY MR#: [id number] Acct: [id number] Name: AGUSTIN GUERRIER Jr. Rep #: [id number] : 1960 63 From: Lance Taylor MD PCP: Dr. Sandro Raza MD Status: REG ER Study: Abdomen/Pelvis W IV Cont ONLY Date of Exam: Exam# [id number] Ordering Dr: Светлана Chance DO [id number] STUDY: CT ABDOMEN AND PELVIS WITH CONTRAST REASON FOR EXAM: Male, 63 years old. rectal bleeding RADIATION DOSAGE (If Supplied By Facility): CTDIvol = ( 11.09 ) mGy, DLP = ( 1089.83 ) mGycm TECHNIQUE: Transaxial images were obtained from the dome of the diaphragm to the symphysis pubis without oral contrast. IV 100mL Isovue-370 was administered. Sagittal and coronal images were reconstructed. Individualized dose optimization techniques were used for this CT. COMPARISON: August 20, 2015 FINDINGS: Mild atelectasis within the dependent portion OF the lower lobes. The visualized portions of the heart are within normal limits. Small hiatal hernia is noted Mild nonspecific fatty infiltrated liver. There is a small cyst in the caudate lobe. Bile ducts are not dilated. Normal gallbladder and extrahepatic biliary system. Normal spleen. Normal pancreas. Normal bilateral adrenal glands. Normal right kidney. Normal left kidney. Concentric thickening of the kennedy of stomach which may be consistent with nonspecific gastritis.. Normal small intestine. Mild diverticular disease of the distal descending and sigmoid colon without evidence for acute diverticulitis. The appendix is visualized and appears normal. Atherosclerotic changes of the aorta without evidence for aneurysm. Normal inferior vena cava. Normal retroperitoneum. Normal urinary bladder. Normal abdominal wall. Lumbar spine demonstrates degenerative changes. CT/Abdomen/Pelvis W IV Cont ONLY IMPRESSION: Mild nonspecific fatty infiltrated liver.. Findings which may be consistent with nonspecific gastritis.. Diverticular disease of the colon without evidence for acute diverticulitis No definitive site for intraluminal hemorrhage. Radionuclide tagged red blood cell study would be helpful for further evaluation if clinically warranted Electronically Signed: Lance Taylor MD at 18:46 EDT , CC: Dr. Sandro Raza MD; Dr. Светлана Chance DO Biomed Tech: Signed Normal [facility] Basic Metabolic Profile (BMP )on 08-21-2024 BUN/CRE 17.5 RATIO Normal - [facility] Comment on above: Performed By: #### L 100.0100, L503.6005, L500.4050 #### [facility] Laboratory [address] [place], [address] CA,Total 9.0 mg/dL Normal 8.5-10.1 [facility] Comment on above: Performed By: #### L 100.0100, L503.6005, L500.4050 #### [facility] [address] [place], [address] Chloride [Moles/Vol] 105 mmol/L Normal 98-107 [facility] Comment on above: Performed By: #### L 100.0100, L503.6005, L500.4050 #### [facility] [address] [place], [address] CO2 [Moles/Vol] 26.0 mmol/L Normal 21.0-32.0 [facility] Comment on above: Performed By: #### L 100.0100, L503.6005, L500.4050 #### [facility] [address] [place], [address] Creatinine [Mass/Vol] 1.20 mg/dL Normal 0.70-1.30 [facility] Comment on above: Result Comment: The validity of the calculated GFR GFRAA in patients over 70 years has not been determined. Clinical correlation is essential. Performed By: #### L 100.0100, L503.6005, L500.4050 #### [facility] [address] [place], [address] EST GFR - AA 78 mL/min Normal >60 [facility] Comment on above: Result Comment: Afri can Niuean GFR Calc Performed By: #### L 100.0100, L503.6005, L500.4050 #### [facility] [address] [place], [address] GAP 8 Normal 5-15 [facility] Comment on above: Performed By: #### L 100.0100, L503.6005, L500.4050 #### [facility] [address] [place], [address] GFR/1.73 sq M.predicted among non-blacks MDRD (S/P/Bld) [Vol rate/Area] 65 mL/min/{1.73_m2} Normal >60 [facility] Comment on above: Result Comment: Non- GFR Calc Performed By: #### L 100.0100, L503.6005, L500.4050 #### [facility] [address] [place], [address] Glucose [Mass/Vol] 133 mg/dL High 74-106 [facility] Comment on above: Result Comment: Fast ing Glucose result greater than or equal to 126 mg/dL suggests DIABETES MELLITUS per A.D.A. criteria. Performed By: #### L 100.0100, L503.6005, L500.4050 #### [facility] [address] [place], [address] Potassium [Moles/Vol] 3.5 mmol/L Normal 3.5-5.1 [facility] Comment on above: Performed By: #### L 100.0100, L503.6005, L500.4050 #### [facility] [address] [place], [address] Sodium [Moles/Vol] 139 mmol/L Normal 136-145 [facility] Comment on above: Performed By: #### L 100.0100, L503.6005, L500.4050 #### [facility] [address] [place], [address] Urea nitrogen [Mass/Vol] 21 mg/dL High 7-18 [facility] Comment on above: Performed By: #### L 100.0100, L503.6005, L500.4050 #### [facility] [address] [place], [address] CBC W/Diff, Automatedon 10-0 Platelets (Bld) [#/Vol] 50 10*3/uL Invalid Interpretation Code 150-450 [facility] Comment on above: Result Comment: CRIT ICAL VALUE CALLED TO JIM ENRIQUEZ 08/21/24 1755 Alexey Goodwin. RESULTS READ BACK BY SAME. Performed By: #### L 100.0600 #### [facility] [address] [place], [address] Absolute Lymph 1.46 X10 3/uL Normal 0.83-4.51 [facility] Comment on above: Performed By: #### L 100.0600 #### [facility] [address] [place], [address] Absolute Neut 3.3 X10 3/uL Normal 2.0-7.7 [facility] Comment on above: Performed By: #### L 100.0600 #### [facility] [address] [place], [address] Basophils/100 WBC (Bld) 0.2 % Normal 0-1 [facility] Comment on above: Performed By: #### L 100.0600 #### [facility] [address] [place], [address] Eosinophils/100 WBC (Bld) 1.1 % Normal 0-5 [facility] Comment on above: Performed By: #### L 100.0600 #### [facility] [address] [place], [address] Erythrocyte distribution width (RBC) [Ratio] 14.0 % Normal 11.6-14.6 [facility] Comment on above: Performed By: #### L 100.0600 #### [facility] [address] [place], [address] Hematocrit (Bld) [Volume fraction] 46.5 % Normal 40-54 [facility] Comment on above: Performed By: #### L 100.0600 #### [facility] [address] [place], [address] Hemoglobin (Bld) [Mass/Vol] 15.7 g/dL Normal 13.0-16.5 [facility] Comment on above: Performed By: #### L 100.0600 #### [facility] [address] [place], [address] IG% 0.600 Normal 0.0-0.9 [facility] Comment on above: Result Comment: IG% - Immature Granulocytes (promyelocytes, myelocytes and metamyelocytes) > 1% indicates that a LEFT SHIFT is Present. Performed By: #### L 100.0600 #### [facility] [address] [place], [address] Lymphocytes/100 WBC (Bld) 27.3 % Normal 19-41 [facility] Comment on above: Performed By: #### L 100.0600 #### [facility] [address] [place], [address] MCH (RBC) [Entitic mass] 29.6 pg Normal 27.0-32.0 [facility] Comment on above: Performed By: #### L 100.0600 #### [facility] [address] [place], [address] MCHC (RBC) [Mass/Vol] 33.8 g/dL Normal 32-36 [facility] Comment on above: Performed By: #### L 100.0600 #### [facility] [address] [place], [address] MCV (RBC) [Entitic vol] 87.6 fL Normal 80-94 [facility] Comment on above: Performed By: #### L 100.0600 #### [facility] [address] [place], [address] Monocytes/100 WBC (Bld) 8.6 % Normal 0-10 [facility] Comment on above: Performed By: #### L 100.0600 #### [facility] [address] [place], [address] Neutrophils/100 WBC (Bld) 62.2 % Normal 47-70 [facility] Comment on above: Performed By: #### L 100.0600 #### [facility] [address] [place], [address] Nucleated RBC (Bld) [#/Vol] 0 10*3/uL Normal 0-5 [facility] Comment on above: Performed By: #### L 100.0600 #### [facility] [address] [place], [address] Platelet mean volume (Bld) [Entitic vol] 14.0 fL High 6.2-12.0 [facility] Comment on above: Performed By: #### L 100.0600 #### [facility] [address] [place], [address] RBC (Bld) [#/Vol] 5.31 10*6/uL Normal 4.6-6.2 [facility] Comment on above: Performed By: #### L 100.0600 #### [facility] [address] [place], [address] RDW SD 44.7 fl High 35.1-43.9 [facility] Comment on above: Performed By: #### L 100.0600 #### [facility] [address] [place], [address] WBC (Bld) [#/Vol] 5.4 10*3/uL Normal 4.4-11.0 [facility] Comment on above: Performed By: #### L 100.0600 #### [facility] [address] [place], [address] Emergency Department Summary on 08-21-2024 Emergency Department Summary [facility] Medical Records Department [address] [place] [address] Emergency Department Summary 08/21/24 MR#: [id number] Acct: [id number] Name: AGUSTIN GUERRIER JrKaren Rep #: [id number] : 1960 63 From: Светлана Chance DO PCP: Dr. Sandro Raza MD Status:ADM IN Location: ICU ICU02-1 HPI HPI - GI History of Present Illness Chief Complaint: GI Bleed Detail of Chief Complaint: Rectal bleeding Informant: patient Narrative Narrative: Patient presents the emergency department complaint of rectal bleeding x 2 days. His daughter gives a lot of the history because patient is hard of hearing and he is good at reading lips however. Patient denies any abdominal pain. He has not had episodes like this before. His last colonoscopy was in 2012 and he had some polyps at that time. Patient has remote history of throat cancer and is in remission. He said prior hemorrhagic stroke. He said history of thrombocytopenia. He denies feeling lightheaded or dizzy. He denies abdominal pain. He said no fever or recent illness. [facility] Medical History Smoker Thrombocytopenia Peripheral neuropathy Fractures Neck fracture Throat cancer CVA (cerebral vascular accident) Hypertension Home Medications ???Medication ???Instructions ???Recorded ???Last Taken ???Type sildenafil 50 mg tablet (Viagra) 50 mg PO DAILY PRN erectile 07/08/22 Unknown History dysfunction gabapentin 300 mg capsule 300 mg PO DAILY 07/13/22 04/19/24 History lisinopril 40 mg tablet 40 mg PO DAILY 07/13/22 04/08/24 History Allergy/AdvReac Type Severity Reaction Status Date / Time No Known Allergies Allergy Verified 08/21/24 16:46 Family History Grandmother Hypertension maternal Grandfather Hypertension paternal CVA (cerebral vascular accident) paternal Social History household members: spouse number of children: 5 current occupational status: disabled Smoking Status: Current every day smoker tobacco type: cigarettes Tobacco: How many years used: 30 alcohol intake: current alcohol intake frequency: 3 or more drinks per day Alcohol type: beer and hard liquor substance use type: marijuana ROS ROS ED Review of Systems ROS Unobtainable: other Constitutional Constitutional ED: Reports lethargy; Denies chills, fever(s), sweats or weight loss Eyes Eyes: Denies blurry vision, change in vision or diplopia ENT ENT ED: Denies rhinorrhea or sore throat Cardiovascular Cardiovascular: Denies chest pain, orthopnea or racing heartbeat Respiratory/Chest Respiratory/Chest: Denies cough, dyspnea, dyspnea on exertion, orthopnea or sputum Gastrointestinal Gastrointestinal: Reports other Details: Rectal bleeding ; Denies abdominal pain, diarrhea, nausea or vomiting Genitourinary Genitourinary ED: Denies dysuria, hematuria or urinary frequency Musculoskeletal Musculoskeletal: Denies arthralgias, back pain, myalgias or neck pain Integumentary Denies abscess, Abrasions or rash Neurologic Neurologic: Denies headache(s) or weakness Psychiatric Psychiatric: Denies anxiety, depression or suicidal thoughts Endocrine Endocrinology: Denies polydipsia, polyphagia or polyuria Hematologic/Lymphatic Hematologic/Lymphatic : Denies easy bleeding, easy bruising or lymphadenopathy Allergic/Immunologic Allergic/Immunologic ED: Denies mouth swelling, tongue swelling or urticaria EXAM Physical Exam Const Vital Signs: 08/21/24 16:47 08/21/24 18:46 Temperature 97.2 F L Temperature Source Temporal Pulse Rate 77 80 Respiratory Rate 16 18 Blood Pressure 232/121 H 217/124 H Blood Pressure Mean 158 155 Pulse Ox 100 95 Oxygen Delivery Method Room Air Room Air Positive well nourished and well developed General Appearance ED: well developed and NAD HEENT Reports TM's clear and moist mucous membranes normocephalic and atraumatic; Negative for trauma or tenderness Tympanic Membrane ED: Yes TM's clear Eyes PERRL and EOMs intact bilaterally General Eye ED: Negative for pale conjunctiva or scleral icterus Neck no lymphadenopathy, supple and no JVD General: Negative for tenderness Chest Wall inspection of chest normal and palpation of chest normal Chest: Negative for tenderness Resp normal respiratory effort and clear to auscultation bilaterally Effort and Inspection: Negative for respiratory distress or pain with movement Auscultation: Negative for rhonchi, wheezes or diminished lung sounds Cardio regular rate, regular rhythm, S1 normal heart sound, S2 normal heart sound and no murmurs Peripheral Pulses: pulses 2+ throughout GI normal to inspection, nondistended, normoactive bowel nikunj (more content not included)... Normal [facility] H AND P Exam - Hospitaliston 08-21-2024 H&P Exam - Hospitalist [facility] Medical Records Department [address] [place] [address] H P Exam - Hospitalist 08/21/241916 MR#: [id number] Acct: [id number] Name: AGUSTIN GUERRIER JrKaren Rep #: [id number] : 1960 63 From: Zack Snow MD PCP: Dr. Sandro Raza MD Status:REG ER Location: ED HPI - General General Date of Admission: 08/21/24 Date of Service: 08/21/24 Chief Complaint: Bright red rectal blood pouring out, started today HPI Narrative AGUSTIN GUERRIER, is a 63 M with multiple comorbidities came to ED for bright red rectal bleed that started in the morning today. It is documented present for 2 days but patient's daughter and patient himself confirmed for 1 day. 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 ED As per the daughter, he when he walks blood is leaking from the rectum. Patient states he feels dizzy/lightheaded on walking. No abdominal/rectal pain. No tenesmus. No fever. In ED, patient's BP was found very high 232/121, heart rate 77/min. No hypoxia or tachypnea. Patient was given IV hydralazine and IV labetalol. Blood pressure still high Patient has chronic pain/neuropathy pain in lower extremity since the stroke and asking for morphine Vitals and labs and CT imaging reviewed discussion assessment and plan. [facility] Medical History Smoker Thrombocytopenia Peripheral neuropathy Fractures Neck fracture Throat cancer CVA (cerebral vascular accident) Hypertension Home Medications ???Medication ???Instructions ???Recorded ???Last Taken ???Type sildenafil 50 mg tablet (Viagra) 50 mg PO DAILY PRN erectile 07/08/22 Unknown History dysfunction gabapentin 300 mg capsule 300 mg PO DAILY 07/13/22 04/19/24 History lisinopril 40 mg tablet 40 mg PO DAILY 07/13/22 04/08/24 History Allergy/AdvReac Type Severity Reaction Status Date / Time No Known Allergies Allergy Verified 08/21/24 16:46 Family History Grandmother Hypertension maternal Grandfather Hypertension paternal CVA (cerebral vascular accident) paternal Social History household members: spouse number of children: 5 current occupational status: disabled Smoking Status: Current every day smoker tobacco type: cigarettes Tobacco: How many years used: 30 alcohol intake: current alcohol intake frequency: 3 or more drinks per day Alcohol type: beer and hard liquor substance use type: marijuana ROS ROS Narrative Constitutional: Reports fatigue and weakness. No fever. HEENT: Dizziness and lightheadedness reports systems reviewed and no addt'l complaints, except as documented Respiratory/Chest: No acute shortness of breath or respiratory distress or wheezing. CVS: No chest pain or tightness Gastrointestinal: Denies coffee ground emesis, hematemesis or vomiting. Rest as described in HPI Genitourinary: Denies burning urination or new urinary tract symptoms Musculoskeletal: Chronic neuropathy pain after stroke. Uses cane. Denies acute joint pain or limited range of motion. No acute injury Neurologic: Denies seizure-like symptoms. Hemorrhagic stroke in 2019. skin: No ulcer. No rash Endocrinology: Reports systems reviewed and no addt'l complaints, except as documented Hematologic/Lymphatic : Chronic severe thrombocytopenia. Follows hematology clinic. Reports systems reviewed and no addt'l complaints, except as documented Rest 14 ROS are negative except as mentioned in HPI Vital Signs Vital Signs Vital Signs: 08/21/24 16:47 08/21/24 18:46 Temperature 97.2 F L Temperature Source Temporal Pulse Rate 77 80 Respiratory Rate 16 18 Blood Pressure 232/121 H 217/124 H Blood Pressure Mean 158 155 Pulse Ox 100 95 Oxygen Delivery Method Room Air Room Air Physical Exam Narrative General: Alert, Oriented x3, Cooperative. HEENT: Atraumatic, PERRLA, EOMI, Normocephalic Oral: Oral mucosa dry no Gingival or Mucosal Lesions/ Ulcerations Neck: Supple, No JVD, Negative Carotid Bruits Chest wall/Lungs: Air entry diminished in bilateral lung bases. No crepitation/rhonchi Cardiovascular: Regular rate, Regular Rhythm, Normal S1, Normal S2, No M/G/R Abdomen: Bowel Sounds Present, Soft, Non Tender, Non-Distended : No dysuria. No renal angle tenderness. No suprapubic tenderness. Extremities: No edema, Capillary Refill Less than 3 Seconds Skin: No rashes, No breakdown Musculoskeletal: Muscle strength 5/5 at knees and hip joints. No acute tenderness to Palpation of Joints or Extremities Neurological: Cranial nerve (more content not included)... Normal [facility] HH, Hemoglobin AND Hematocri ton 08-21-2024 Hematocrit (Bld) [Volume fraction] 45.9 % Normal 40-54 [facility] Comment on above: Performed By: #### L 100.0600 #### [facility] [address] [place], [address] Hemoglobin (Bld) [Mass/Vol] 15.6 g/dL Normal 13.0-16.5 [facility] Comment on above: Performed By: #### L 100.0600 #### [facility] [address] [place], [address] Lactic Acidon 08-21-2024 Lactate [Moles/Vol] 1.4 mmol/L Normal 0.4-1.9 [facility] Comment on above: Order Comment: Y Performed By: #### L 100.0100, L503.6005, L500.4050 #### [facility] [address] [place], [address] Magnesiumon 08-21-2024 Magnesium [Mass/Vol] 2.0 mg/dL Normal 1.6-2.6 [facility] Comment on above: Performed By: #### L 300.3900, L501.5200, L501.2300 #### [facility] [address] [place], [address] Phosphoruson 08-21-2024 Phosphate [Mass/Vol] 3.1 mg/dL Normal 2.5-4.9 [facility] Comment on above: Performed By: #### L 300.3900, L501.5200, L501.2300 #### [facility] [address] [place], [address] Prothrombin Time w/INRon INR Coag (PPP) [Relative time] 1.0 {INR} Normal [facility] Comment on above: Performed By: #### L 300.3900, L501.5200, L501.2300 #### [facility] [address] [place], [address] PT Coag (PPP) [Time] 13.4 s Normal 11.7-14.9 [facility] Comment on above: Performed By: #### L 300.3900, L501.5200, L501.2300 #### [facility] [address] [place], [address] Type AND Screenon 08-21-2024 ABO and Rh group Nom (Bld) Blood group O Rh(D) positive Normal [facility] Comment on above: Order Comment: HGI Performed By: #### L 100.0600 #### [facility] [address] [place], [address] CBC W/Diff, Automatedon 04-13 PATH REV Reviewed Normal [facility] Comment on above: Result Comment: [facility] ED Thrombocytopenia. Clinical correlation necessary. Carlos A Ulloa M.D. 04/22/24 AMENDED REPORT 04/22/24 1357 PATH REV previously reported as: March funmi Performed By: #### L 100.0100, L503.6005, L500.4050 #### [facility] [address] [place], [address] 12 Lead EKGon 04-19-2024 12 Lead EKG [facility] Cardiovascular Services [address] [place] [address] 12 Lead EKG 04/19/24 1629 MR#: [id number] Acct: [id number] Name: NINGAGUSTIN Jr. Rep #: [id number] : 1960 63 From: Tobin Marley MD Attending Dr: Status: DEP ER Ordering Dr: Maurice Garcias MD Date: 04/19/24 Location: ED Sex: M C Admitted: Test Reason : NEURO Blood Pressure : / mmHG Vent. Rate : 073 BPM Atrial Rate : 073 BPM P-R Int : 142 ms QRS Dur : 088 ms QT Int : 396 ms P-R-T Axes : 037 053 065 degrees QTc Int : 436 ms Normal sinus rhythm Normal ECG Confirmed by NATALIE DURÁN, TOBIN ([id number]), editor publications PATRICIA DE LOS SANTOS ([id number]) on 04/22/2024 8:35:48 AM Referred By: Confirmed By:TOBIN MARLEY MD 04/22/24 0835 Date Tobin Marley MD CC: Dr. Sandro Raza MD; Dr. Maurice Garcias MD Signed Normal [facility] Bedside Glucoseon 04-19-2024 FINGERSTICK GLU 83 mg/dL Normal 74-106 [facility] Comment on above: Result Comment: KENNEY BARBER OF PATIENT CARE PER NURSING PROTOCOL Performed By: #### L 100.0600 #### [facility] [address] [facility] [place], [place], [address] Brain/Head without Contrasto n 04-19-2024 Brain/Head without Contrast [facility] Imaging Services [address] [place], [place] [address] Brain/Head without Contrast MR#: [id number] Acct: [id number] Name: NINGAGUSTIN Jr. Rep #: [id number] : 1960 M 63 From: Hussain Calvin DO PCP: Dr. Sandro Raza MD Status: REG ER Study: Brain/Head without Contrast Date of Exam: 06/05 Exam# [id number] Ordering Dr: Maurice Garcias MD [id number] STUDY: CT BRAIN WITHOUT CONTRAST REASON FOR EXAM: Male, 63 years old. Acute change in mental status RADIATION DOSAGE (If Supplied By Facility): CTDIvol = ( 44.99 ) mGy, DLP = ( 796.11 ) mGycm TECHNIQUE: Transaxial CT imaging of the brain was performed without administration of intravenous contrast material. Individualized dose optimization techniques were used for this CT. COMPARISON: No relevant priors. FINDINGS: Normal soft tissue structures. Normal calvarium. Normal size ventricles and extra-axial spaces for the patient''s age. Bilateral white matter microangiopathic ischemic changes of the cerebral hemispheres. Probable old infarct in the right basal ganglia. Normal thalami. Normal brainstem. Normal cerebellum. There is no intracranial hemorrhage. There are no findings of an acute ischemic infarction. Normal visualized paranasal sinuses. CT/Brain/Head without Contrast IMPRESSION: Age-related and chronic changes of the brain. Electronically Signed: Hussain Calvin DO at 16:58 EDT , CC: Dr. Sandro Raza MD; Dr. Maurice Garcias MD Biomed Tech: Signed Normal [facility] Comprehensive Metabolic Prof ilon 04-19-2024 Albumin [Mass/Vol] 3.9 g/dL Normal 3.2-5.0 [facility] Comment on above: Performed By: #### L 100.0100, L503.6005, L500.4050 #### [facility] [address] [place], [address] Albumin/Globulin [Mass ratio] 0.8 {ratio} Low 0.9-2.4 [facility] Comment on above: Performed By: #### L 100.0100, L503.6005, L500.4050 #### [facility] [address] [place], [address] ALK P 80 U/L Normal 45-117 [facility] Comment on above: Performed By: #### L 100.0100, L503.6005, [id number] #### [facility] [address] [place], [address] ALT [Catalytic activity/Vol] 42 U/L Normal 16-61 [facility] Comment on above: Performed By: #### L 100.0100, L503.6005, [id number] #### [facility] [address] [place], [address] AST [Catalytic activity/Vol] 24 U/L Normal 15-37 [facility] Comment on above: Performed By: #### L 100.0100, L503.6005, L500.4050 #### [facility] [address] [place], [address] Bilirubin [Mass/Vol] 0.40 mg/dL Normal 0.20-1.00 [facility] Comment on above: Result Comment: For patients on eltrombopag therapy, use of Dimension [place] TBIL is not recommended. Performed By: #### L 100.0100, L503.6005, L500.4050 #### [facility] [address] [place], [address] BUN/CRE 17.2 RATIO Normal 10-20 [facility] Comment on above: Performed By: #### L 100.0100, L503.6005, L500.4050 #### [facility] [address] [place], [address] CA,Total 10.0 mg/dL Normal 8.5-10.1 [facility] Comment on above: Performed By: #### L 100.0100, L503.6005, [id number] #### [facility] [address] [place], [address] Chloride [Moles/Vol] 102 mmol/L Normal 98-107 [facility] Comment on above: Performed By: #### L 100.0100, L503.6005, [id number] #### [facility] [address] [place], [address] CO2 [Moles/Vol] 28.0 mmol/L Normal 21.0-32.0 [facility] Comment on above: Performed By: #### L 100.0100, L503.6005, [id number] #### [facility] [address] [place], [address] Creatinine [Mass/Vol] 1.34 mg/dL High 0.70-1.30 [facility] Comment on above: Result Comment: The validity of the calculated GFR GFRAA in patients over 70 years has not been determined. Clinical correlation is essential. Performed By: #### L 100.0100, L503.6005, L500.4050 #### [facility] [address] [place], [address] ECRCL 62.94 ml/min Normal [facility] Comment on above: Performed By: #### L 100.0100, L503.6005, L500.4050 #### [facility] [address] [place], [address] EST GFR - AA 69 mL/min Normal >60 [facility] Comment on above: Result Comment: Afri can Niuean GFR Calc Performed By: #### L 100.0100, L503.6005, L500.4050 #### [facility] [address] [place], [address] GAP 6 Normal 5-15 [facility] Comment on above: Performed By: #### L 100.0100, L503.6005, L500.4050 #### [facility] [address] [place], [address] GFR/1.73 sq M.predicted among non-blacks MDRD (S/P/Bld) [Vol rate/Area] 57 mL/min/{1.73_m2} Low >60 [facility] Comment on above: Result Comment: Non- GFR Calc Performed By: #### L 100.0100, L503.6005, L500.4050 #### [facility] [address] [place], [address] Globulin (S) [Mass/Vol] 4.9 g/dL High 2.2-4.2 [facility] Comment on above: Performed By: #### L 100.0100, L503.6005, L500.4050 #### [facility] [address] [place], [address] Glucose [Mass/Vol] 91 mg/dL Normal 74-106 [facility] [place] Comment on above: Performed By: #### L 100.0100, L503.6005, [id number] #### [facility] [address] [place], [address] Potassium [Moles/Vol] 4.2 mmol/L Normal 3.5-5.1 [facility] Comment on above: Performed By: #### L 100.0100, L503.6005, L500.4050 #### [facility] [address] [place], [address] Sodium [Moles/Vol] 136 mmol/L Normal 136-145 [facility] [place] Comment on above: Performed By: #### L 100.0100, L503.6005, L500.4050 #### [facility] [address] [place], [address] T PROT 8.8 g/dL High 6.4-8.2 [facility] Comment on above: Performed By: #### L 100.0100, L503.6005, L500.4050 #### [facility] [address] [place], [address] Urea nitrogen [Mass/Vol] 23 mg/dL High 7-18 [facility] Comment on above: Performed By: #### L 100.0100, L503.6005, L500.4050 #### [facility] [address] [place], [address] Emergency Department Summary on 04-19-2024 Emergency Department Summary [facility] Medical Records Department [address] [place] [address] Emergency Department Summary 04/19/24 MR#: [id number] Acct: [id number] Name: AGUSTIN GUERRIER Jr. Rep #: [id number] : 1960 63 From: Maurice Garcias MD PCP: Dr. Sandro Raza MD Status:REG ER Location: ED ADDENDUM by Dr. Maurice Garcias MD on 04/19/24 at 1816 EKG revealed normal sinus rhythm rate of 73 and the EKG is normal. SC interval is 142 ms. Cures duration 88 ms. QT duration 396 ms. Lynch is normal 04/19/241815 Cosigner Signature (if applicable): cc: Dr. Sandro Raza MD * Signed HPI History of Present Illness Chief Complaint: Neuro S/Sx Detail of Chief Complaint: Confusion, not himself per family member Informant: patient and family Onset/Context/Timing Onset: Today Context: Sudden Onset (Last known normal at approximately noon.) Timing: Continuous Quality: Not his normal self Location: Uncertain Current Severity: He essentially is at baseline. Maximum Severity: Apparently he was not responsive. There was no seizure activity. Worsened by: Possibly hypertension and no medication for 1 week Relieved by: Nothing Associated Symptoms Associated Symptoms: Possibly a blank stare Narrative Narrative: Patient is a 63-year-old gentleman. He has history of hepatitis, thrombocytopenia, peripheral neuropathy, hypertension and ED who was brought to the emergency room because he was not his normal self. This was first noted at noon. I was asked to evaluate patient in the triage area for possible stroke. Speech and speech is no different than baseline. It is slow. Patient is had a prior stroke. He denies headache. Nuys double vision blurred vision loss of vision. Denies slurring of his words or trouble getting words out. Denies chest pain, pressure tightness heaviness. He denies shortness of breath. He dyspnea dyspnea exertion Denies abdominal pain, nausea, vomiting or diarrhea. He denies dysuria, frequency, urgency or hematuria. According to his relative he was discharged from his primary care office at [place], Dr. Sandro Raza. He was discharged because he has missed 3 appointments. He has been out of his blood pressure medication for a week. Prior similar symptoms: No Recent Illness/Hospitalizati on: No PFSH PFSH Medical History Smoker Thrombocytopenia Peripheral neuropathy Fractures Neck fracture Throat cancer CVA (cerebral vascular accident) Hypertension Home Medications ???Medication ???Instructions ???Recorded ???Last Taken ???Type sildenafil 50 mg tablet (Viagra) 50 mg PO DAILY PRN 07/08/22 Unknown History gabapentin 300 mg capsule 300 mg PO DAILY 07/13/22 07/20/22 20:00 History lisinopril 40 mg tablet 40 mg PO DAILY 07/13/22 07/21/22 07:00 History melatonin 3 mg tablet 3 mg PO QHS PRN sleep 07/13/22 Unknown History lisinopril 20 mg tablet 20 mg PO DAILY #30 tabs 04/19/24 Unknown Rx Allergy/AdvReac Type Severity Reaction Status Date / Time No Known Allergies Allergy Verified 04/19/24 16:05 Family History Grandmother Hypertension maternal Grandfather Hypertension paternal CVA (cerebral vascular accident) paternal Social History household members: spouse number of children: 5 current occupational status: disabled Smoking Status: Current every day smoker tobacco type: cigarettes Tobacco: How many years used: 30 alcohol intake: current alcohol intake frequency: 3 or more drinks per day Alcohol type: beer and hard liquor substance use type: marijuana ROS ROS ED Constitutional Constitutional ED: Denies chills, fever(s), subjective or sweats Eyes Eyes: Denies blurry vision, change in vision or diplopia ENT ENT ED: Denies ear pain, rhinorrhea or sore throat Cardiovascular Cardiovascular: Denies chest pain, orthopnea, palpitations, paroxysmal nocturnal dyspnea or racing heartbeat Respiratory/Chest Respiratory/Chest: Denies cough, dyspnea, dyspnea on exertion, orthopnea or paroxysmal nocturnal dyspnea Gastrointestinal Gastrointestinal: Denies abdominal pain, diarrhea, nausea or vomiting Genitourinary Genitourinary ED: Denies dysuria, hematuria or urinary frequency Musculoskeletal Musculoskeletal: Denies arthralgias or myalgias Integumentary Denies abscess, Abrasions or rash Neurologic Neurologic: Reports weakness; Denies headache(s) or paresthesias Endocrine Endocrinology: Denies cold intolerance or heat intolerance Hematologic/Lymphatic Hematologic/Lymphatic : Reports systems reviewed and no addt'l complaints, except as documented EXAM Physical Exam Const Vital Signs: 04/19/24 16:04 04/19/24 16:04 04/19/24 17:20 Tempera (more content not included)... Normal [facility] Lactic Acidon 04-19-2024 Lactate [Moles/Vol] 1.0 mmol/L Normal 0.4-1.9 [facility] Comment on above: Order Comment: Y Performed By: #### L 100.0100, L503.6005, L500.4050 #### [facility] [address] [place], [address] Absolute lymphocyte countOrd ered By: Sandro Raza on 05-05-2023 Lymphocytes Auto (Unsp spec) [#/Vol] 1.70 10*3/uL 0.83-4.51 [facility] Basophil percentageOrdered B y: Sandro Raza on 05-05-2023 Basophil percentage 5.288 . [facility] Comment on above: Result Units: log10 IU/mL Basophils/100 WBC (Bld) 0.4 % 0-1 [facility] Bilirubin [Mass/Vol] 0.50 mg/dL 0.20-1.00 [facility] Comment on above: For patients on eltr ombopag therapy, use of Dimension [place] TBIL is not recommended. Chloride [Moles/Vol] 108 mmol/L 98-107 [facility] Eosinophils/100 WBC (Bld) 2.3 % 0-5 [facility] Glucose [Mass/Vol] 101 mg/dL 74-106 [facility] Comment on above: Fasting Glucose resu lt from 100 to 125 mg/dL suggests IMPAIRED HOMEOSTASIS per A.D.A. criteria. Neutrophils (Bld) [#/Vol] 4.4 10*3/uL 2.0-7.7 [facility] Neutrophils/100 WBC (Bld) 63.5 % 47-70 [facility] Potassium [Moles/Vol] 4.4 mmol/L 3.5-5.1 [facility] Protein [Mass/Vol] 7.6 g/dL 6.4-8.2 [facility] Sodium [Moles/Vol] 138 mmol/L 136-145 [facility] WBC (Bld) [#/Vol] 6.9 10*3/uL 4.4-11.0 [facility] Blood erythrocytes count (nu mber/volume)Ordered By: Sandro Raza on 05-05-2023 RBC (Bld) [#/Vol] 5.02 10*6/uL 4.6-6.2 [facility] Blood hemoglobin measurement (mass/volume)Ordered By: Sandro Raza on 05-05-2023 Hemoglobin (Bld) [Mass/Vol] 15.0 g/dL 13.0-16.5 [facility] Blood lymphocytes/100 leukoc ytesOrdered By: Sandro Raza on 05-05-2023 Lymphocytes/100 WBC (Bld) 24.5 % 19-41 [facility] Blood manual differential co mment interpretation (narrative result)Ordered By: Sandro Raza on 05-05-2023 Manual differential comment Damaso (Bld) [Interp] SCANNED [facility] Comment on above: THROMBOCYTOPENIA NOT ED Blood monocytes/100 leukocyt esOrdered By: Sandro Raza on 05-05-2023 Monocytes/100 WBC (Bld) 8.9 % 0-10 [facility] Blood platelet mean volumeOr dered By: Sandro Raza on 05-05-2023 Platelet mean volume (Bld) [Entitic vol] 14.5 fL 6.2-12.0 [facility] Determination of erythrocyte mean corpuscular volume (MCV)Ordered By: Sandro Raza on 05-05-2023 MCV (RBC) [Entitic vol] 90.8 fL 80-94 [facility] Hematocrit Auto (Bld) [Volum e fraction]Ordered By: Sandro Raza on 05-05-2023 Hematocrit (Bld) [Volume fraction] 45.6 % 40-54 [facility] - Chemistry and C hemistry - challengeOrdered By: Sandro Raza on 05-05-2023 ALP [Catalytic activity/Vol] 61 U/L 45-117 [facility] ALT [Catalytic activity/Vol] 38 U/L 16-61 [facility] CO2 [Moles/Vol] 25.0 mmol/L 21.0-32.0 [facility] Globulin (S) [Mass/Vol] 4.2 g/dL 2.2-4.2 [facility] Urea nitrogen/Creatinine [Mass ratio] 16.5 mg/mg 10-20 [facility] - Hematology and Cell countsOrdered By: Sandro Raza on 05-05-2023 Erythrocyte distribution width (RBC) [Entitic vol] 42.7 fL 35.1-43.9 [facility] Erythrocyte distribution width (RBC) [Ratio] 13.0 % 11.6-14.6 [facility] Immature granulocytes/100 WBC (Bld) 0.400 % 0.0-0.9 [facility] Comment on above: IG% - Immature Granu locytes (promyelocytes, myelocytes and metamyelocytes) > 1% indicates that a LEFT SHIFT is Present. MCH (RBC) [Entitic mass] 29.9 pg 27.0-32.0 [facility] Nucleated RBC/100 WBC (Bld) [Ratio] 0 % 0-5 [facility] MCHC Auto (RBC) [Mass/Vol]Or dered By: Sandro Raza on 05-05-2023 MCHC (RBC) [Mass/Vol] 32.9 g/dL 32-36 [facility] No Panel InformationOrdered By: Sandro Raza on 05-05-2023 Addendum Document Comment . [facility] Comment on above: The quantitative ran ge of this assay is 15 IU/mL to 100million IU/mL.Performed at: [address] [id number] Director: Markos Tejada MD, Phone: [phone] Estimated GFR (MDRD) Amer 78 mL/min >60 [facility] Comment on above: GFR Calc Estimated GFR (MDRD) Non-Af Amer 64 mL/min >60 [facility] Comment on above: Non- GFR Calc Platelets bldOrdered By: Aury Raza on 05-05-2023 Platelets (Bld) [#/Vol] 55 10*3/uL 150-450 [facility] Serum or plasma albumin rachell urement (mass/volume)Ordered By: Sandro Raza on 05-05-2023 Albumin [Mass/Vol] 3.4 g/dL 3.2-5.0 [facility] Serum or plasma albumin/glob ulin mass ratioOrdered By: Sandro Raza on 05-05-2023 Albumin/Globulin [Mass ratio] 0.8 {ratio} 0.9-2.4 [facility] Serum or plasma calcium rachell urement (mass/volume)Ordered By: Sandro Raza on 05-05-2023 Calcium [Mass/Vol] 8.7 mg/dL 8.5-10.1 [facility] Serum or plasma creatinine m easurement (mass/volume)Ordered By: Sandro Raza on 05-05-2023 Creatinine [Mass/Vol] 1.21 mg/dL 0.70-1.30 [facility] Comment on above: The validity of the calculated GFR & GFRAA in patients over 70 years has not been determined. Clinical correlation is essential. Serum or plasma hepatitis C virus RNA measurement by probe and target amplification mOrdered By: Sandro Raza on 05-05-2023 HCV RNA KATHERINE+probe Qn [id number] IU/mL . [facility] Serum or plasma urea nitroge n measurement (mass/volume)Ordered By: Sandro Raza on 05-05-2023 Urea nitrogen [Mass/Vol] 20 mg/dL 7-18 [facility] Thin prep Papanicolaou smear with manual screeningOrdered By: Sandro Raza on 05-05-2023 Thin prep Papanicolaou smear with manual screening 18 U/L 15-37 [facility] Thin prep Papanicolaou smear with manual screening 5 5-15 [facility] Absolute lymphocyte counton 07-21-2022 Lymphocytes Auto (Unsp spec) [#/Vol] 2.12 10*3/uL 0.83-4.51 [facility] Work Phone: Basophil percentageon 2021 Basophils/100 WBC (Bld) 0.3 % 0-1 [facility] Work Phone: Eosinophils/100 WBC (Bld) 3.5 % 0-5 [facility] Work Phone: Neutrophils (Bld) [#/Vol] 3.6 10*3/uL 2.0-7.7 [facility] Work Phone: Neutrophils/100 WBC (Bld) 54.6 % 47-70 [facility] Work Phone: WBC (Bld) [#/Vol] 6.5 10*3/uL 4.4-11.0 [facility] Work Phone: Blood erythrocytes count (nu mber/volume)on 07-21-2022 RBC (Bld) [#/Vol] 4.85 10*6/uL 4.6-6.2 [facility] Work Phone: Blood hemoglobin measurement (mass/volume)on 07-21-2022 Hemoglobin (Bld) [Mass/Vol] 14.8 g/dL 13.0-16.5 [facility] Work Phone: Blood lymphocytes/100 leukoc yteson 07-21-2022 Lymphocytes/100 WBC (Bld) 32.6 % 19-41 [facility] Work Phone: Blood monocytes/100 leukocyt eson 07-21-2022 Monocytes/100 WBC (Bld) 8.8 % 0-10 [facility] Work Phone: Blood platelet mean volumeon 07-21-2022 Platelet mean volume (Bld) [Entitic vol] 12.4 fL 6.2-12.0 [facility] Work Phone: Determination of erythrocyte mean corpuscular volume (MCV)on 07-21-2022 MCV (RBC) [Entitic vol] 90.1 fL 80-94 [facility] Work Phone: Hematocrit Auto (Bld) [Volum e fraction]on 07-21-2022 Hematocrit (Bld) [Volume fraction] 43.7 % 40-54 [facility] Work Phone: INR in Blood by Coagulation assayon 07-21-2022 INR Coag (Bld) [Relative time] 1.0 {INR} [facility] Work Phone: Laboratory - Coagulationon 0 07-21-2022 aPTT Coag (Bld) [Time] 36.1 s 24.1-36.2 [facility] Work Phone: [phone] PT Coag (PPP) [Time] 13.2 s 11.7-14.9 [facility] Work Phone: [phone] Laboratory - Hematology and Cell countson 07-21-2022 Erythrocyte distribution width (RBC) [Entitic vol] 41.8 fL 35.1-43.9 [facility] Work Phone: [phone] Erythrocyte distribution width (RBC) [Ratio] 12.8 % 11.6-14.6 [facility] Work Phone: [phone] Immature granulocytes/100 WBC (Bld) 0.200 % 0.0-0.9 [facility] Work Phone: [phone] Comment on above: IG% - Immature Granu locytes (promyelocytes, myelocytes and metamyelocytes) > 1% indicates that a LEFT SHIFT is Present. MCH (RBC) [Entitic mass] 30.5 pg 27.0-32.0 [facility] Work Phone: [phone] Nucleated RBC/100 WBC (Bld) [Ratio] 0 % 0-5 [facility] Work Phone: [phone] MCHC Auto (RBC) [Mass/Vol]on 07-21-2022 MCHC (RBC) [Mass/Vol] 33.9 g/dL 32-36 [facility] Work Phone: [phone] Platelets bldon 07-21-2022 Platelets (Bld) [#/Vol] 59 10*3/uL 150-450 [facility] Work Phone: [phone] HIV 1 and HIV-2 antibody ass ay with HIV-1 p24 antigen detectionon 07-13-2022 HIV 1+2 Ab+HIV1 p24 Ag IA Ql Non-Reactive Nonreactive [facility] Work Phone: No Panel Informationon 07-13 Hepatitis C Antibody Preliminary Reactive Nonre active [facility] Work Phone: [phone] Comment on above: Non Reactive: < 0.8 Equivocal: >/= 0.8 to < 1.0 Reactive: >/= 1.0The CDC recommends that a reactive/equivocal HCV antibody result be followed up by the HCV Nucleic Acid Amplificationtest (105354) Serum hepatitis B virus surf simona antibody IgG detectionon 07-13-2022 HBV surface IgG Ql (S) Non-Reactive [facility] Work Phone: Comment on above: Non Reactive: Incons istent with immunity less than <10 mIU/mL Reactive: Consistent with immunity greater than or equal to 10 mIU/mL Absolute lymphocyte counton 07-04-2022 Lymphocytes Auto (Unsp spec) [#/Vol] 1.67 10*3/uL 0.83-4.51 [facility] Work Phone: Basophil percentageon 2021 Basophils/100 WBC (Bld) 0.5 % 0-1 [facility] Work Phone: Chloride [Moles/Vol] 106 mmol/L 98-107 [facility] Work Phone: Eosinophils/100 WBC (Bld) 2.6 % 0-5 [facility] Work Phone: Glucose [Mass/Vol] 102 mg/dL 74-106 [facility] Work Phone: Comment on above: Fasting Glucose resu lt from 100 to 125 mg/dL suggests IMPAIRED HOMEOSTASIS per A.D.A. criteria. Neutrophils (Bld) [#/Vol] 3.5 10*3/uL 2.0-7.7 [facility] Work Phone: Neutrophils/100 WBC (Bld) 59.4 % 47-70 [facility] Work Phone: Potassium [Moles/Vol] 4.4 mmol/L 3.5-5.1 [facility] Work Phone: Sodium [Moles/Vol] 138 mmol/L 136-145 [facility] Work Phone: WBC (Bld) [#/Vol] 5.8 10*3/uL 4.4-11.0 [facility] Work Phone: Blood erythrocytes count (nu mber/volume)on 07-04-2022 RBC (Bld) [#/Vol] 4.71 10*6/uL 4.6-6.2 [facility] Work Phone: Blood hemoglobin measurement (mass/volume)on 07-04-2022 Hemoglobin (Bld) [Mass/Vol] 14.6 g/dL 13.0-16.5 [facility] Work Phone: [phone] Blood lymphocytes/100 leukoc yteson 07-04-2022 Lymphocytes/100 WBC (Bld) 28.7 % 19-41 [facility] Work Phone: [phone] Blood monocytes/100 leukocyt eson 07-04-2022 Monocytes/100 WBC (Bld) 8.3 % 0-10 [facility] Work Phone: [phone] Blood platelet adequacy dete ction by light microscopyon 07-04-2022 Platelets LM Ql (Bld) [facility] Work Phone: [phone] Blood platelet mean volumeon 07-04-2022 Platelet mean volume (Bld) [Entitic vol] 14.7 fL 6.2-12.0 [facility] Work Phone: Determination of erythrocyte mean corpuscular volume (MCV)on 07-04-2022 MCV (RBC) [Entitic vol] 91.5 fL 80-94 [facility] Work Phone: [phone] Hematocrit Auto (Bld) [Volum e fraction]on 07-04-2022 Hematocrit (Bld) [Volume fraction] 43.1 % 40-54 [facility] Work Phone: [phone] Laboratory - Chemistry and C hemistry - challengeon 07-04-2022 CO2 [Moles/Vol] 27.0 mmol/L 21.0-32.0 [facility] Work Phone: [phone] Urea nitrogen/Creatinine [Mass ratio] 22.0 mg/mg 10-20 [facility] Work Phone: [phone] Laboratory - Hematology and Cell countson 07-04-2022 Anisocytosis Ql (Bld) RARE [facility] Work Phone: [phone] Erythrocyte distribution width (RBC) [Entitic vol] 43.7 fL 35.1-43.9 [facility] Work Phone: [phone] Erythrocyte distribution width (RBC) [Ratio] 13.0 % 11.6-14.6 [facility] Work Phone: [phone] Immature granulocytes/100 WBC (Bld) 0.500 % 0.0-0.9 [facility] Work Phone: [phone] Comment on above: IG% - Immature Granu locytes (promyelocytes, myelocytes and metamyelocytes) > 1% indicates that a LEFT SHIFT is Present. MCH (RBC) [Entitic mass] 31.0 pg 27.0-32.0 [facility] Work Phone: Nucleated RBC/100 WBC (Bld) [Ratio] 0 % 0-5 [facility] Work Phone: [phone] MCHC Auto (RBC) [Mass/Vol]on 07-04-2022 MCHC (RBC) [Mass/Vol] 33.9 g/dL 32-36 [facility] Work Phone: Macrocytes detectionon 07-04 Macrocytes Ql (Bld) [facility] Work Phone: No Panel Informationon 07-04 Estimated GFR (MDRD) Amer 80 mL/min >60 [facility] Work Phone: Comment on above: GFR Calc Estimated GFR (MDRD) Non-Af Amer 66 mL/min >60 [facility] Work Phone: Comment on above: Non- GFR Calc Prostate Specific Antigen Screen 0.86 ng/mL 0.00-4.00 [facility] Work Phone: Comment on above: This test was perfor med using the TPSA assay method for the[employer] chemistry system. Values obtained with differentassay methods cannot be used interchangably.When changing PSA assays in the course of monitoring apatient, additional sequential testing should be carriedout to confirm baseline values. Platelets bldon 07-04-2022 Platelets (Bld) [#/Vol] 50 10*3/uL 150-450 [facility] Work Phone: Comment on above: CRITICAL VALUE VERIF IED. CALLED TO DR BATEMAN TOOL/DIE MAKER FOR DR RAZA07/04/22 1821 Samuel Thrasher.RESULTS READ BACK BY SAME . RBC morphologyon 07-04-2022 RBC morphology finding Nom (Bld) N CHROM NORMAL NORM C&C [facility] Work Phone: Review by pathologiston 06-14 Pathologist review Damaso (Unsp spec) [Interp] Reviewed [facility] Work Phone: Comment on above: Previous reported re sult: Michela choudhary Edited by: VIOLETA on 07/06/22:1016Marked Thrombocytopenia.Clinical correlation necessary.Carlos A Ulloa M.D. 07/06/22 AMENDED REPORT 07/06/22 1016 PATH REV previously reported as: Michela choudhary Serum or plasma calcium rachell urement (mass/volume)on 07-04-2022 Calcium [Mass/Vol] 9.1 mg/dL 8.5-10.1 [facility] Work Phone: Serum or plasma creatinine m easurement (mass/volume)on 07-04-2022 Creatinine [Mass/Vol] 1.18 mg/dL 0.70-1.30 [facility] Work Phone: Comment on above: The validity of the calculated GFR & GFRAA in patients over 70 years has not been determined. Clinical correlation is essential. Serum or plasma urea nitroge n measurement (mass/volume)on 07-04-2022 Urea nitrogen [Mass/Vol] 26 mg/dL 7-18 [facility] Work Phone: Thin prep Papanicolaou smear with manual screeningon 07-04-2022 Thin prep Papanicolaou smear with manual screening 5 5-15 [facility] Work Phone: CNOVon 12-27-2019 CNOV Office Visit ([facility] ) AGUSTIN GUERRIER ([id number]) 1960 M Date Time Provider Department 12/27/19 11:45 AM JULIUS CLEVELAND (SARA) [facility] During your visit today, we recorded the following information about you: Temperature Pulse Respiration Blood pressure 97.3 degrees 70/minute 16/minute 132/86 Weight 89.5 kg Julius Cleveland APRN.[facility]ARA 01/01/2020 5:24 PM Signed Subjective HPI Agustin Guerrier is a 59 year old male who presents with possible pink eye and dysuria. He has had these symptoms for one week. He states he has been exposed to pink eye in the family recently. He has a wound on his left lower leg that occurred when he dropped a knife and it stuck into his leg. He has a bruise in the spot and he denies pain. He cleaned the area with soap. He cannot remember when his last tetanus shot was. Review of Systems Constitutional: Negative. Negative for fever. HENT: Negative for congestion and sore throat. Eyes: Positive for discharge and redness. Respiratory: Negative for cough and shortness of breath. Cardiovascular: Negative. Negative for chest pain. Genitourinary: Positive for dysuria. Musculoskeletal: See HPI BP 132/86 Pulse 70 Temp 36.3 ?C (97.3 ?F) (Right Tympanic) Resp 16 Wt 89.5 kg (197 lb 6.4 oz) SpO2 97% BMI 26.77 kg/m? PAST MEDICAL HISTORY Diagnosis Date - Cancer of base of tongue (HCC) - Chronic hepatitis C (HCC) gt 2b - Closed fracture of unspecified part of femur 1981 Left - Depressive disorder, not elsewhere classified - Lumbago 11/13/1996 Chronic, history of fall, lumbar compression fracture, 1996. - Other forms of migraine - Psoriasis PAST SURGICAL HISTORY Procedure Laterality Date - COLONOSCOPY 08/19/15 colonoscopy-poor prep-repeat THANIA - PAST SURGICAL HISTORY OF 2005 ORIF, Mandibular fracture, [facility] - REPAIR COMPL ROTATOR CUFF AVULSN,CHR 1985 Left shoulder, [facility] - TONGUE AND NECK SURGERY ALLERGIES Patient has no known allergies. MEDICATIONS metoprolol succinate ER (TOPROL XL) 25 mg 24 hr tablet Take 1 tablet by mouth once daily. levothyroxine (SYNTHROID) 50 mcg tablet Take 1 tablet by mouth daily before breakfast. docusate sodium (COLACE) 100 mg capsule Take 1 capsule by mouth twice daily as needed for Constipation. pantoprazole DR (PROTONIX) 40 mg tablet Take 1 tablet by mouth twice daily. sertraline (ZOLOFT) 50 mg tablet Take 1 tablet by mouth once daily. diphenhydrAMINE-maalo x-lidocaine (BMX 1:1:1) 1:1:1 liqd Take 10 mL by mouth four times daily. cholecalciferol, Vitamin D3, (VITAMIN D3) 50,000 unit cap capsule Take 1 capsule by mouth once each week. gabapentin 300 mg capsule Take 2 capsules by mouth three times daily. senna-docusate (SENNA WITH DOCUSATE SODIUM) 8.6-50 mg per tablet Take 2 tablets by mouth twice daily as needed for Constipation. FAMILY HISTORY Problem Relation Age of Onset - other (tongue cancer [Other]) Paternal Aunt - Cancer Sister Thyroid cancer - Coronary Artery Disease Paternal Grandmother had a pace maker - Psychiatry Mother Social History Tobacco Use - Smoking status: Current Every Day Smoker Packs/day: 0.50 Years: 31.00 Pack years: 15.50 Types: Cigarettes, Cigars - Smokeless tobacco: Never Used Substance Use Topics - Alcohol use: Yes Alcohol/week: 7.5 standard drinks Types: 3 Cans of Beer (12oz) per week Comment: A couple of beers twice per week - Drug use: No Frequency: 2.0 times per week Comment: No narcotic addiction. Smoke marijauna. Used cocaine, crystal meth when he was younger. Objective Physical Exam Constitutional: He is well-developed, well-nourished, and in no distress. HENT: Right Ear: Tympanic membrane, external ear and ear canal normal. Left Ear: Tympanic membrane, external ear and ear canal normal. Nose: Nose normal. Mouth/Throat: Uvula is midline, oropharynx is clear and moist and mucous membranes are normal. No oropharyngeal exudate, posterior oropharyngeal edema or posterior oropharyngeal erythema. Eyes: Right eye exhibits discharge. Left eye exhibits discharge. Right conjunctiva is injected. Left conjunctiva is injected. Neck: Neck supple. Cardiovascular: Normal rate, regular rhythm and normal heart sounds. Pulmonary/Chest: Effort normal and breath sounds normal. No respiratory distress. He has no wheezes. He has no rales. Musculoskeletal: Legs: Lymphadenopathy: He has no cervical adenopathy. Neurological: He is alert. Skin: Skin is warm and dry. No rash noted. No erythema. Nursing note and vitals reviewed. ASSESSMENT/PLAN: 1. Dysuria - ICD9: 788.1, ICD10: R30.0 (primary diagnosis) acute - UA positive for hematuria and proteinuria - Send urine for culture - Begin treatment with cephalexin for 10 days - Patient education for prevention given - UA DIP, URINE (POC) - URINE CULTURE - CEPHALEXIN 500 MG CAPSULE 2. Lower leg injury, left, initial encounter - ICD9: 959.7, ICD10: S89.92XA - TDAP VACCINE AGE 7+ IM- tetanus update was ordered but patient left exam room before nurses could complete. His daughter was called twice and informed he can return for his tetanus shot. He did not return as of 01/01/2020. - CEPHALEXIN 500 MG CAPSULE 3. Hypertension, unspecified type - ICD9: 401.9, ICD10: I10 - patient has been noncompliant with medications. Spoke with patient regarding reasons for this, he states he can't remember to take his pills. His daughter plans to buy a pill business continuity planner for him and help him manage his medications. - METOPROLOL SUCCINATE ER 25 MG TABLET,EXTENDED RELEASE 24 HR 4. Hypothyroidism, acquired - ICD9: 244.9, ICD10: E03.9 - LEVOTHYROXINE 50 MCG TABLET 5. History of constipation - ICD9: V12.79, ICD10: Z87.19 - DOCUSATE SODIUM 100 MG CAPSULE 6. History of gastroesophageal reflux (GERD) - ICD9: V12.79, ICD10: Z87.19 - PANTOPRAZOLE 40 MG TABLET,DELAYED RELEASE 7. Bacterial conjunctivitis - ICD9: 372.39, 041.9, ICD10: H10.9 - see medication orders - course and contagiousness issues discussed, including hand washing. - Instructed to call if high fever, development of periorbital redness or swelling, eye pain, visual changes, concerns or if symptoms persist. - POLYMYXIN B SULFATE 10,000 UNIT-TRIMETHOPRIM 1 MG/ML EYE DROPS - Follow-up with your PCP in 3-5 days if symptoms have not improved or sooner if symptoms worsen - Discussed red flags and need for immediate medical evaluation if any occur. - Discussed supportive care treatment with fluids, rest and analgesia. - Discussed expected course of illness KANDIS Hannon APRN.CNP 12/27/2019 4:56 PM Addendum ASSESSMENT/PLAN: 1. Dysuria - ICD9: 788.1, ICD10: R30.0 (primary diagnosis) acute - UA positive for hematuria and proteinuria - Send urine for culture - Begin treatment with cephalexin for 10 days - Patient education for prevention given - UA DIP, URINE (POC) - URINE CULTURE - CEPHALEXIN 500 MG CAPSULE 2. Lower leg injury, left, initial encounter - ICD9: 959.7, ICD10: S89.92XA - TDAP VACCINE AGE 7+ IM - CEPHALEXIN 500 MG CAPSULE 3. Hypertension, unspecified type - ICD9: 401.9, ICD10: I10 - patient has been noncompliant with medications. Spoke with patient regarding reasons for this, he states he can't remember to take his pills. His daughter plans to buy a pill business continuity planner for him and help him manage his medications. - METOPROLOL SUCCINATE ER 25 MG TABLET,EXTENDED RELEASE 24 HR 4. Hypothyroidism, acquired - ICD9: 244.9, ICD10: E03.9 - LEVOTHYROXINE 50 MCG TABLET 5. History of constipation - ICD9: V12.79, ICD10: Z87.19 - DOCUSATE SODIUM 100 MG CAPSULE 6. History of gastroesophageal reflux (GERD) - ICD9: V12.79, ICD10: Z87.19 - PANTOPRAZOLE 40 MG TABLET,DELAYED RELEASE 7. Bacterial conjunctivitis - ICD9: 372.39, 041.9, ICD10: H10.9 - see medication orders - course and contagiousness issues discussed, including hand washing. - Instructed to call if high fever, development of periorbital redness or swelling, eye pain, visual changes, concerns or if symptoms persist. - POLYMYXIN B SULFATE 10,000 UNIT-TRIMETHOPRIM 1 MG/ML EYE DROPS - Follow-up with your PCP in 3-5 days if symptoms have not improved or sooner if symptoms worsen - Discussed red flags and need for immediate medical evaluation if any occur. - Discussed supportive care treatment with fluids, rest and analgesia. - Discussed expected course of illness Julius Cleveland APRN.[employer] EQUIPMENT DEVELOPER PATIENT INSTRUCTIONS for Male Urinary Track Infections Expected course/prognosis: Clearing of infections with appropriate antibiotic treatment Possible complications: Pyelonephritis Ascending infection Recurrent infection Instructions: * Close followup until clinically well and repeat urinalysis after treatment * Hydration and analgesis if required * Discontinue sexual activity until cured * Prompt treatment of predisposing factors *Go to the Emergency room if fever, chills, or flank pain develop Please call your PCP if you are not feeling better in 3-5 days. Referring Provider: SELF [[id number]] Allergies As of Date: 12/27/2019 (No Known Allergies) Date Reviewed: 12/27/2019 Reviewed by: Lacey Wong Ma - Fully Assessed Reason for Visit: Eye Problem [43] Cmt: BRET eye redness x 1 week UTI [116] Cmt: dysuria with foul odor x 1 week Reason For Visit History Recorded Primary Visit Diagnosis:Dysuria [R30.0] Other Visit Diagnoses:Lower leg injury, left, initial encounter [S89.92XA] Hypertension, unspecified type [I10] Hypothyroidism, acquired [E03.9] History of constipation [Z87.19] History of gastroesophageal reflux (GERD) [Z87.19] Bacterial conjunctivitis [H10.9] Order(s):UA DIP, URINE (POC) [3222503] Order #: [id number]. #:[id number] URINE CULTURE [SQURCUL] Order #: [id number]. #:[id number] metoprolol succinate ER (TOPROL XL) 25 mg 24 hr tabletTake 1 tablet by mouth once daily.Disp: 30 tabletRfl: 0 levothyroxine (SYNTHROID) 50 mcg tabletTake 1 tablet by mouth daily before breakfast.Disp: 30 tabletRfl: 0 docusate sodium (COLACE) 100 mg capsuleTake 1 capsule by mouth twice daily as needed for Constipation.Disp: 60 capsuleRfl: [address] (PROTONIX) 40 mg tabletTake 1 tablet by mouth twice daily.Disp: 60 tabletRfl: 0 cephALEXin (KEFLEX) 500 mg capsuleTake 1 capsule by mouth three times daily for 10 days.Disp: 30 capsuleRfl: 0 trimethoprim-polymyxi n eye drops (POLYTRIM) ophthalmic solutionUse 1 Drop in both eyes four times daily for 7 days.Disp: 1 mLRfl: 0 Prescriptions as of 12/27/2019 Sig: METOPROLOL SUCCINATE ER 25 MG* Take 1 tablet by mouth once d* LEVOTHYROXINE 50 MCG TABLET Take 1 tablet by mouth daily * DOCUSATE SODIUM 100 MG CAPSULE Take 1 capsule by mouth twice* PANTOPRAZOLE 40 MG TABLET,DEL* Take 1 tablet by mouth twice * CEPHALEXIN 500 MG CAPSULE Take 1 capsule by mouth three* POLYMYXIN B SULFATE 10,000 UN* Use 1 Drop in both eyes four * SERTRALINE 50 MG TABLET Take 1 tablet by mouth once d* Patient not taking: Reported on 12/27/2019 DIPHENHYDRAMINE-ANTAC ID-LIDOC* Take 10 mL by mouth four time* Patient not taking: Reported on 12/27/2019 CHOLECALCIFEROL (VITAMIN D3) * Take 1 capsule by mouth once * Patient not taking: Reported on 12/27/2019 GABAPENTIN 300 MG CAPSULE Take 2 capsules by mouth thre* Patient not taking: Reported on 12/27/2019 Problem List As Of Date 12/27/2019 Noted Resolved Lumbago [M54.5] 11/13/1996 More... Tongue cancer [C02.9] 09/17/2013 More... 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 HTN (hypertension) [I10] 03/11/2014 More... GERD (gastroesophageal reflux disease) [K21.9] 10/23/2014 More... Depression [F32.9] 10/23/2014 More... 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 Dysuria - ICD9: 788.1, ICD10: R30.0 (primary diagnosis) acute - UA positive for hematuria and proteinuria - Send urine for culture - Begin treatment with cephalexin for 10 days - Patient education for prevention given - UA DIP, URINE (POC) - URINE CULTURE - CEPHALEXIN 500 MG CAPSULE 2. Lower leg injury, left, initial encounter - ICD9: 959.7, ICD10: S89.92XA - TDAP VACCINE AGE 7+ IM - CEPHALEXIN 500 MG CAPSULE 3. Hypertension, unspecified type - ICD9: 401.9, ICD10: I10 - patient has been noncompliant with medications. Spoke with patient regarding reasons for this, he states he can't remember to take his pills. His daughter plans to buy a pill business continuity planner for him and help him manage his medications. - METOPROLOL SUCCINATE ER 25 MG TABLET,EXTENDED RELEASE 24 HR 4. Hypothyroidism, acquired - ICD9: 244.9, ICD10: E03.9 - LEVOTHYROXINE 50 MCG TABLET 5. History of constipation - ICD9: V12.79, ICD10: Z87.19 - DOCUSATE SODIUM 100 MG CAPSULE 6. History of gastroesophageal reflux (GERD) - ICD9: V12.79, ICD10: Z87.19 - PANTOPRAZOLE 40 MG TABLET,DELAYED RELEASE 7. Bacterial conjunctivitis - ICD9: 372.39, 041.9, ICD10: H10.9 - see medication orders - course and contagiousness issues discussed, including hand washing. - Instructed to call if high fever, development of periorbital redness or swelling, eye pain, visual changes, concerns or if symptoms persist. - POLYMYXIN B SULFATE 10,000 UNIT-TRIMETHOPRIM 1 MG/ML EYE DROPS - Follow-up with your PCP in 3-5 days if symptoms have not improved or sooner if symptoms worsen - Discussed red flags and need for immediate medical evaluation if any occur. - Discussed supportive care treatment with fluids, rest and analgesia. - Discussed expected course of illness Julius Cleveland APRN.SARA PATIENT INSTRUCTIONS for Male Urinary Track Infections Expected course/prognosis: Clearing of infections with appropriate antibiotic treatment Possible complications: Pyelonephritis Ascending infection Recurrent infection Instructions: * Close followup until clinically well and repeat urinalysis after treatment * Hydration and analgesis if required * Discontinue sexual activity until cured * Prompt treatment of predisposing factors *Go to the Emergency room if fever, chills, or flank pain develop Please call your PCP if you are not feeling better in 3-5 days. Prescriptions ordered this encounter Disp Refills Start End METOPROLOL SUCCINATE ER 25 MG TABLET* 30 t* 0 12/27/2019 Route: ORAL Sig: Take 1 tablet by mouth once daily. LEVOTHYROXINE 50 MCG TABLET 30 t* 0 12/27/2019 Route: ORAL Sig: Take 1 tablet by mouth daily before breakfast. DOCUSATE SODIUM 100 MG CAPSULE 60 c* 2 12/27/2019 Route: ORAL Sig: Take 1 capsule by mouth twice daily as needed for Constipation. PANTOPRAZOLE 40 MG TABLET,DELAYED RE* 60 t* 0 12/27/2019 Route: ORAL Sig: Take 1 tablet by mouth twice daily. CEPHALEXIN 500 MG CAPSULE 30 c* 0 12/27/2019 01/06/2020 Route: ORAL Sig: Take 1 capsule by mouth three times daily for 10 days. POLYMYXIN B SULFATE 10,000 UNIT-TRIM* 1 mL 0 12/27/2019 01/03/2020 Route: BOTH EYES Sig: Use 1 Drop in both eyes four times daily for 7 days. Medications Discontinued During This Encounter senna-docusate (SENNA WITH DOCUSATE * 02/13/2014 12/27/2019 Class: OTC Route: ORAL Sig: Take 2 tablets by mouth twice daily as needed for Constipation. Patient not taking: Reported on 12/27/2019 Disc: Reason for discontinue is not on file. metoprolol succinate ER (TOPROL XL) * 30 t* 11 12/24/2015 12/27/2019 Route: ORAL Sig: Take 1 tablet by mouth once daily. Patient not taking: Reported on 12/27/2019 Disc: Reason for discontinue is not on file. levothyroxine (SYNTHROID) 50 mcg tab* 30 t* 11 11/10/2015 12/27/2019 Route: ORAL Sig: Take 1 tablet by mouth daily before breakfast. Patient not taking: Reported on 12/27/2019 Disc: Reason for discontinue is not on file. docusate sodium (COLACE) 100 mg caps* 60 c* 2 07/10/2015 12/27/2019 Route: ORAL Sig: Take 1 capsule by mouth twice daily as needed for Constipation. Patient not taking: Reported on 12/27/2019 Disc: Reason for discontinue is not on file. pantoprazole DR (PROTONIX) 40 mg tab* 07/07/2015 12/27/2019 Class: Historical Med Route: ORAL Sig: Take 1 tablet by mouth twice daily. Disc: Reason for discontinue is not on file. Disposition: Return in 1 week (on 01/03/2020) for establish care with PCP. Follow-up and Disposition History Recorded Encounter Status:Closed by JULIUS CLEVELAND on 01/01/20 [facility] PROGRESSon 12-27-2019 PROGRESS HNO ID: [id number] Author: Julius ([facility]) Megha Service: ? Author Type: Nurse Practitioner Type: Progress Notes Filed: 01/01/2020 5:24 PM Note Text: Subjective HPI Agustin Guerrier is a 59 year old male who presents with possible pink eye and dysuria. He has had these symptoms for one week. He states he has been exposed to pink eye in the family recently. He has a wound on his left lower leg that occurred when he dropped a knife and it stuck into his leg. He has a bruise in the spot and he denies pain. He cleaned the area with soap. He cannot remember when his last tetanus shot was. Review of Systems Constitutional: Negative. Negative for fever. HENT: Negative for congestion and sore throat. Eyes: Positive for discharge and redness. Respiratory: Negative for cough and shortness of breath. Cardiovascular: Negative. Negative for chest pain. Genitourinary: Positive for dysuria. Musculoskeletal: See HPI BP 132/86 Pulse 70 Temp 36.3 ?C (97.3 ?F) (Right Tympanic) Resp 16 Wt 89.5 kg (197 lb 6.4 oz) SpO2 97% BMI 26.77 kg/m? PAST MEDICAL HISTORY Diagnosis Date - Cancer of base of tongue (HCC) - Chronic hepatitis C (HCC) gt 2b - Closed fracture of unspecified part of femur 1981 Left - Depressive disorder, not elsewhere classified - Lumbago 11/13/1996 Chronic, history of fall, lumbar compression fracture, 1996. - Other forms of migraine - Psoriasis PAST SURGICAL HISTORY Procedure Laterality Date - COLONOSCOPY 08/19/15 colonoscopy-poor prep-repeat THANIA - PAST SURGICAL HISTORY OF 2005 ORIF, Mandibular fracture, [facility] - REPAIR COMPL ROTATOR CUFF AVULSN,CHR 1984 Left [facility], [facility] - TONGUE AND NECK SURGERY ALLERGIES Patient has no known allergies. MEDICATIONS metoprolol succinate ER (TOPROL XL) 25 mg 24 hr tablet Take 1 tablet by mouth once daily. levothyroxine (SYNTHROID) 50 mcg tablet Take 1 tablet by mouth daily before breakfast. docusate sodium (COLACE) 100 mg capsule Take 1 capsule by mouth twice daily as needed for Constipation. pantoprazole DR (PROTONIX) 40 mg tablet Take 1 tablet by mouth twice daily. sertraline (ZOLOFT) 50 mg tablet Take 1 tablet by mouth once daily. diphenhydrAMINE-maalo x-lidocaine (BMX 1:1:1) 1:1:1 liqd Take 10 mL by mouth four times daily. cholecalciferol, Vitamin D3, (VITAMIN D3) 50,000 unit cap capsule Take 1 capsule by mouth once each week. gabapentin 300 mg capsule Take 2 capsules by mouth three times daily. senna-docusate (SENNA WITH DOCUSATE SODIUM) 8.6-50 mg per tablet Take 2 tablets by mouth twice daily as needed for Constipation. FAMILY HISTORY Problem Relation Age of Onset - other (tongue cancer [Other]) Paternal Aunt - Cancer Sister Thyroid cancer - Coronary Artery Disease Paternal Grandmother had a pace maker - Psychiatry Mother Social History Tobacco Use - Smoking status: Current Every Day Smoker Packs/day: 0.50 Years: 31.00 Pack years: 15.50 Types: Cigarettes, Cigars - Smokeless tobacco: Never Used Substance Use Topics - Alcohol use: Yes Alcohol/week: 7.5 standard drinks Types: 3 Cans of Beer (12oz) per week Comment: A couple of beers twice per week - Drug use: No Frequency: 2.0 times per week Comment: No narcotic addiction. Smoke marijauna. Used cocaine, crystal meth when he was younger. Objective Physical Exam Constitutional: He is well-developed, well-nourished, and in no distress. HENT: Right Ear: Tympanic membrane, external ear and ear canal normal. Left Ear: Tympanic membrane, external ear and ear canal normal. Nose: Nose normal. Mouth/Throat: Uvula is midline, oropharynx is clear and moist and mucous membranes are normal. No oropharyngeal exudate, posterior oropharyngeal edema or posterior oropharyngeal erythema. Eyes: Right eye exhibits discharge. Left eye exhibits discharge. Right conjunctiva is injected. Left conjunctiva is injected. Neck: Neck supple. Cardiovascular: Normal rate, regular rhythm and normal heart sounds. Pulmonary/Chest: Effort normal and breath sounds normal. No respiratory distress. He has no wheezes. He has no rales. Musculoskeletal: Legs: Lymphadenopathy: He has no cervical adenopathy. Neurological: He is alert. Skin: Skin is warm and dry. No rash noted. No erythema. Nursing note and vitals reviewed. ASSESSMENT/PLAN: 1. Dysuria - ICD9: 788.1, ICD10: R30.0 (primary diagnosis) acute - UA positive for hematuria and proteinuria - Send urine for culture - Begin treatment with cephalexin for 10 days - Patient education for prevention given - UA DIP, URINE (POC) - URINE CULTURE - CEPHALEXIN 500 MG CAPSULE 2. Lower leg injury, left, initial encounter - ICD9: 959.7, ICD10: S89.92XA - TDAP VACCINE AGE 7+ IM- tetanus update was ordered but patient left exam room before nurses could complete. His daughter was called twice and informed he can return for his tetanus shot. He did not return as of 01/01/2020. - CEPHALEXIN 500 MG CAPSULE 3. Hypertension, unspecified type - ICD9: 401.9, ICD10: I10 - patient has been noncompliant with medications. Spoke with patient regarding reasons for this, he states he can't remember to take his pills. His daughter plans to buy a pill business continuity planner for him and help him manage his medications. - METOPROLOL SUCCINATE ER 25 MG TABLET,EXTENDED RELEASE 24 HR 4. Hypothyroidism, acquired - ICD9: 244.9, ICD10: E03.9 - LEVOTHYROXINE 50 MCG TABLET 5. History of constipation - ICD9: V12.79, ICD10: Z87.19 - DOCUSATE SODIUM 100 MG CAPSULE 6. History of gastroesophageal reflux (GERD) - ICD9: V12.79, ICD10: Z87.19 - PANTOPRAZOLE 40 MG TABLET,DELAYED RELEASE 7. Bacterial conjunctivitis - ICD9: 372.39, 041.9, ICD10: H10.9 - see medication orders - course and contagiousness issues discussed, including hand washing. - Instructed to call if high fever, development of periorbital redness or swelling, eye pain, visual changes, concerns or if symptoms persist. - POLYMYXIN B SULFATE 10,000 UNIT-TRIMETHOPRIM 1 MG/ML EYE DROPS - Follow-up with your PCP in 3-5 days if symptoms have not improved or sooner if symptoms worsen - Discussed red flags and need for immediate medical evaluation if any occur. - Discussed supportive care treatment with fluids, rest and analgesia. - Discussed expected course of illness Julius Cleveland APRN.[facility] Normal [facility] Urine Cultureon 12-27-2019 Bacteria identified Cx Nom (U) Sp. Request/Comment: - Specimen received in preservative Culture Result - No growth (<1,000 CFU/ml) [facility] Comment on above: Performed By: #### U RCUL ####[facility] [id number] [place], [place] [id number] PROGRESSon 07-11-2019 PROGRESS HNO ID: [id number] Author: Jaky Cameron Service: ? Author Type: Computer Mechanic Type: Progress Notes Filed: 07/11/2019 9:47 AM Note Text: [facility] POCKET OPERATOR QUICKNOTE Provider Action/FYI: Certified letter returned to sender - unclaimed. Patient identified by name and . Jaky Cameron CMA [facility] PROGRESSon 05-08-2019 PROGRESS HNO ID: [id number] Author: Jaky Cameron Service: ? Author Type: Computer Mechanic Type: Progress Notes Filed: 05/08/2019 10:43 AM Note Text: POPULATION HEALTH POCKET OPERATOR QUICKNOTE Provider Action/FYI: Phone number is wrong. Mailing certified letter to patient. Patient identified by name and . Jaky Cameron CMA [facility] PROGRESSon 05-07-2019 PROGRESS HNO ID: [id number] Author: Jaky Cameron Service: ? Author Type: Computer Mechanic Type: Progress Notes Filed: 05/08/2019 10:43 AM Note Text: [facility] HEALTH POCKET OPERATOR QUICKNOTE Provider Action/FYI: Patient identified by name and . 2nd attempt - phone number busy. Try back later. Jaky Cameron CMA [facility] CNPTOUTREACHon 05-06-2019 CNPTOUTREA Patient Outreach (INTMWS) AGUSTIN GUERRIER ([id number]) 1960 M Date Time Provider Department 05/06/19 JAKY CAMERON ([facility]) INTMWS During your visit today, we recorded the following information about you: Jaky Cameron CMA 05/08/2019 10:43 AM Signed [facility] CARE GAP REGISTRY DOCUMENTATION (OUTSIDE TEAMLET) Provider Action/FYI: Please file labs and advise if wanting anything additional PSR Action/FYI: - due for Physical (send certified letter if unable to contact patient) - last pcp appointment 08/26/2015 Health Maintenance Due: BP CONTROLLED (<130/80) due on 1977 DTAP,TDAP,TD(1 - Tdap) due on 1978 COLORECTAL CANCER SCREENING,SEE MODIFIER due on 2009 ANNUAL PCP TEAM CHRONIC DISEASE VISIT due on 08/26/2016 DIABETES SCREEN due on 10/26/2018 - order pending Patient identified by name and date of . Last BP/Labs: Blood Pressure: Last 3 Encounter BP Readings: Date: BP: 10/26/2015 130/92 08/26/2015 132/72 07/30/2015 139/88 Lipids: Cholesterol, Total (mg/dL) Date Value 12/01/2014 164 HDL Cholesterol (mg/dL) Date Value 12/01/2014 36 LDL Cholesterol (mg/dL) Date Value 12/01/2014 102 Triglyceride (mg/dL) Date Value 12/01/2014 129 HGB A1C: No results found for: HBA1C TSH: TSH (uU/mL) Date Value 10/26/2015 6.200 06/09/2015 4.020 ) ? Patient has the following care gap registry disease diagnosis:HTN ? Hypothyroidism ? Patient has the following open care gaps: Health Maintenance Due: BP CONTROLLED (<130/80) due on 1977 DTAP,TDAP,TD(1 - Tdap) due on 1978 COLORECTAL CANCER SCREENING,SEE MODIFIER due on 2009 ANNUAL PCP TEAM CHRONIC DISEASE VISIT due on 08/26/2016 DIABETES SCREEN due on 10/26/2018 - order pending ? Last office visit: 08/26/2015 ? Future office visit:Physical next available with pcp or truck bracer BERTHA Hanna CMA 05/08/2019 10:43 AM Signed [facility] POCKET OPERATOR QUICKNOTE Provider Action/FYI: Patient identified by name and . 1st attempt - Expandly message sent. BERTHA Hanna APRN.SARA 05/08/2019 10:43 AM Signed Orders filed. Baldemar Watts APRN.SARA Cameron CMA 05/08/2019 10:43 AM Signed [facility] POCKET OPERATOR QUICKNOTE Provider Action/FYI: Patient identified by name and . 2nd attempt - phone number busy. Try back later. BERTHA Hanna CMA 05/08/2019 10:43 AM Signed [facility] POCKET OPERATOR QUICKNOTE Provider Action/FYI: Phone number is wrong. Mailing certified letter to patient. Patient identified by name and . BERTHA Hanna CMA 07/11/2019 9:47 AM Signed [facility] POCKET OPERATOR QUICKNOTE Provider Action/FYI: Certified letter returned to sender - unclaimed. Patient identified by name and . Jaky Cameron CMA Allergies As of Date: 05/06/2019 (No Known Allergies) Date Reviewed: 08/23/2016 Reviewed by: Fabi Gandhi - Fully Assessed Reason for Visit: PHMA/Care Gap Outreach [[id number]] Primary Visit Diagnosis:Hypertensio n, unspecified type [I10] Other Visit Diagnosis:Hypothyroid ism, unspecified type [E03.9] Order(s):COMP METABOLIC PANEL [SQCMP] Order #: [id number] FUTURE TSH BLD [SQTSH] Order #: [id number] FUTURE Prescriptions as of 05/06/2019 Sig: METOPROLOL SUCCINATE ER 25 MG* Take 1 tablet by mouth once d* LEVOTHYROXINE 50 MCG TABLET Take 1 tablet by mouth daily * DOCUSATE SODIUM 100 MG CAPSULE Take 1 capsule by mouth twice* PANTOPRAZOLE 40 MG TABLET,DEL* Take 1 tablet by mouth twice * SERTRALINE 50 MG TABLET Take 1 tablet by mouth once d* DIPHENHYDRAMINE-ANTAC ID-LIDOC* Take 10 mL by mouth four time* CHOLECALCIFEROL (VITAMIN D3) * Take 1 capsule by mouth once * GABAPENTIN 300 MG CAPSULE Take 2 capsules by mouth thre* SENNOSIDES 8.6 MG-DOCUSATE SO* Take 2 tablets by mouth twice* Problem List As Of Date 05/06/2019 Noted Resolved Lumbago [M54.5] INVALID FOR* More... Tongue cancer [C02.9] INVALID FOR* More... 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 HTN (hypertension) [I10] INVALID FOR* More... GERD (gastroesophageal reflux disease) [K21.9] INVALID FOR* More... Depression [F32.9] INVALID FOR* More... 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 Author Type: Nurse Practitioner Type: Progress Notes Filed: 05/08/2019 10:43 AM Note Text: Orders filed. Baldemar Watts APRN.CNP [facility] PROGRESS HNO ID: [id number] Author: Jaky Blas) Rakesh Service: ? Author Type: Computer Mechanic Type: Progress Notes Filed: 05/08/2019 10:43 AM Note Text: [facility] HEALTH POCKET OPERATOR QUICKNOTE Provider Action/FYI: Patient identified by name and . 1st attempt - Expandly message sent. Jaky Cameron CMA [facility] PROGRESS HNO ID: [id number] Author: Jaky Cameron Service: ? Author Type: Computer Mechanic Type: Progress Notes Filed: 05/08/2019 10:43 AM Note Text: [facility] CARE GAP REGISTRY DOCUMENTATION (OUTSIDE TEAMLET) Provider Action/FYI: Please file labs and advise if wanting anything additional PSR Action/FYI: - due for Physical (send certified letter if unable to contact patient) - last pcp appointment 08/26/2015 Health Maintenance Due: BP CONTROLLED (<130/80) due on 1977 DTAP,TDAP,TD(1 - Tdap) due on 1978 COLORECTAL CANCER SCREENING,SEE MODIFIER due on 2009 ANNUAL PCP TEAM CHRONIC DISEASE VISIT due on 08/26/2016 DIABETES SCREEN due on 10/26/2018 - order pending Patient identified by name and date of . Last BP/Labs: Blood Pressure: Last 3 Encounter BP Readings: Date: BP: 10/26/2015 130/92 08/26/2015 132/72 07/30/2015 139/88 Lipids: Cholesterol, Total (mg/dL) Date Value 12/01/2014 164 HDL Cholesterol (mg/dL) Date Value 12/01/2014 36 LDL Cholesterol (mg/dL) Date Value 12/01/2014 102 Triglyceride (mg/dL) Date Value 12/01/2014 129 HGB A1C: No results found for: HBA1C TSH: TSH (uU/mL) Date Value 10/26/2015 6.200 06/09/2015 4.020 ) ? Patient has the following care gap registry disease diagnosis:HTN ? Hypothyroidism ? Patient has the following open care gaps: Health Maintenance Due: BP CONTROLLED (<130/80) due on 1977 DTAP,TDAP,TD(1 - Tdap) due on 1978 COLORECTAL CANCER SCREENING,SEE MODIFIER due on 2009 ANNUAL PCP TEAM CHRONIC DISEASE VISIT due on 08/26/2016 DIABETES SCREEN due on 10/26/2018 - order pending ? Last office visit: 08/26/2015 ? Future office visit:Physical next available with pcp or truck bracer Jaky Cameron CMA [facility] PROGRESSon 03-11-2019 PROGRESS HNO ID: [id number] Author: Jaky Cameron Service: ? Author Type: Computer Mechanic Type: Progress Notes Filed: 03/11/2019 1:06 PM Note Text: [facility] HEALTH POCKET OPERATOR QUICKNOTE Provider Action/FYI: Letter mailed to patient. Patient identified by name and . 3rd attempt - # busy. Mailing letter to patient. Jaky Cameron CMA [facility] PROGRESSon 03-08-2019 PROGRESS HNO ID: [id number] Author: Jaky Cameron Service: ? Author Type: Computer Mechanic Type: Progress Notes Filed: 03/11/2019 1:06 PM Note Text: [facility] QUICKNOTE Provider Action/FYI: Patient identified by name and . 2nd attempt - # busy. I will try back later. Jaky Cameron CMA [facility] CNPTOUTREACHon 03-07-2019 CNPTOUTREACH Patient Outreach (INTMWS) AGUSTIN GUERRIER ([id number]) 1960 M Date Time Provider Department 03/07/19 JAKY CAMERON) INTMWS During your visit today, we recorded the following information about you: Jaky Cameron CMA 03/11/2019 1:06 PM Signed [facility] CARE GAP REGISTRY DOCUMENTATION (OUTSIDE TEAMLET) Provider Action/FYI: PSR Action/FYI: Due for Physical Health Maintenance Due: BP CONTROLLED (<130/80) due on 1977 DTAP,TDAP,TD(1 - Tdap) due on 1978 COLORECTAL CANCER SCREENING,SEE MODIFIER due on 2009 ANNUAL PCP TEAM CHRONIC DISEASE VISIT due on 08/26/2016 DIABETES SCREEN due on 10/26/2018 - ordered ( will in April) Patient identified by name and date of . Last BP/Labs: Blood Pressure: Last 3 Encounter BP Readings: Date: BP: 10/26/2015 130/92 08/26/2015 132/72 07/30/2015 139/88 Lipids: Cholesterol, Total (mg/dL) Date Value 12/01/2014 164 HDL Cholesterol (mg/dL) Date Value 12/01/2014 36 LDL Cholesterol (mg/dL) Date Value 12/01/2014 102 Triglyceride (mg/dL) Date Value 12/01/2014 129 HGB A1C: No results found for: HBA1C TSH: TSH (uU/mL) Date Value 10/26/2015 6.200 06/09/2015 4.020 ) ? Patient has the following care gap registry disease diagnosis:HTN ? Hypothyroidism ? Patient has the following open care gaps: Health Maintenance Due: BP CONTROLLED (<130/80) due on 1977 DTAP,TDAP,TD(1 - Tdap) due on 1978 COLORECTAL CANCER SCREENING,SEE MODIFIER due on 2009 ANNUAL PCP TEAM CHRONIC DISEASE VISIT due on 08/26/2016 DIABETES SCREEN due on 10/26/2018 - ordered ( will in April) ? Last office visit: 08/26/2015 ? Future office visit:Physical next available with pcp or truck bracer BERTHA Hanna CMA 03/11/2019 1:06 PM Signed POPULATION HEALTH POCKET OPERATOR ASHLI Provider Action/FYI: Patient identified by name and . 1st attempt to contact patient - ForeUpt message sent. BERTHA Hanna CMA 03/11/2019 1:06 PM Signed [facility] P[facility]PER[facility] ASHLI Provider Action/FYI: Patient identified by name and . 2nd attempt - # busy. I will try back later. BERTHA Hanna CMA 03/11/2019 1:06 PM Signed [facility] POCKET OPERATOR ASHLI Provider Action/FYI: Letter mailed to patient. Patient identified by name and . 3rd attempt - # busy. Mailing letter to patient. Jaky CameronBERTHA Allergies As of Date: 03/07/2019 (No Known Allergies) Date Reviewed: 08/23/2016 Reviewed by: Fabi Gandhi - Fully Assessed Reason for Visit: PHMA/Care Gap Outreach [2115] Prescriptions as of 03/07/2019 Sig: METOPROLOL SUCCINATE ER 25 MG* Take 1 tablet by mouth once d* LEVOTHYROXINE 50 MCG TABLET Take 1 tablet by mouth daily * DOCUSATE SODIUM 100 MG CAPSULE Take 1 capsule by mouth twice* PANTOPRAZOLE 40 MG TABLET,DEL* Take 1 tablet by mouth twice * SERTRALINE 50 MG TABLET Take 1 tablet by mouth once d* DIPHENHYDRAMINE-ANTAC ID-LIDOC* Take 10 mL by mouth four time* CHOLECALCIFEROL (VITAMIN D3) * Take 1 capsule by mouth once * GABAPENTIN 300 MG CAPSULE Take 2 capsules by mouth thre* SENNOSIDES 8.6 MG-DOCUSATE SO* Take 2 tablets by mouth twice* Problem List As Of Date 03/07/2019 Noted Resolved Lumbago [M54.5] INVALID FOR* More... Tongue cancer [C02.9] INVALID FOR* More... 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 HTN (hypertension) [I10] INVALID FOR* More... GERD (gastroesophageal reflux disease) [K21.9] INVALID FOR* More... Depression [F32.9] INVALID FOR* More... 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 Author Type: Computer Mechanic Type: Progress Notes Filed: 03/11/2019 1:06 PM Note Text: POPULATION HEALTH POCKET OPERATOR QUICKNOTE Provider Action/FYI: Patient identified by name and . 1st attempt to contact patient - Expandly message sent. Jaky Cameron CMA [facility] PROGRESS HNO ID: [id number] Author: Jaky Cameron Service: ? Author Type: Computer Mechanic Type: Progress Notes Filed: 03/11/2019 1:06 PM Note Text: [facility] CARE GAP REGISTRY DOCUMENTATION (OUTSIDE TEAMLET) Provider Action/FYI: PSR Action/FYI: Due for Physical Health Maintenance Due: BP CONTROLLED (<130/80) due on 1977 DTAP,TDAP,TD(1 - Tdap) due on 1978 COLORECTAL CANCER SCREENING,SEE MODIFIER due on 2009 ANNUAL PCP TEAM CHRONIC DISEASE VISIT due on 08/26/2016 DIABETES SCREEN due on 10/26/2018 - ordered ( will in April) Patient identified by name and date of . Last BP/Labs: Blood Pressure: Last 3 Encounter BP Readings: Date: BP: 10/26/2015 130/92 08/26/2015 132/72 07/30/2015 139/88 Lipids: Cholesterol, Total (mg/dL) Date Value 12/01/2014 164 HDL Cholesterol (mg/dL) Date Value 12/01/2014 36 LDL Cholesterol (mg/dL) Date Value 12/01/2014 102 Triglyceride (mg/dL) Date Value 12/01/2014 129 HGB A1C: No results found for: HBA1C TSH: TSH (uU/mL) Date Value 10/26/2015 6.200 06/09/2015 4.020 ) ? Patient has the following care gap registry disease diagnosis:HTN ? Hypothyroidism ? Patient has the following open care gaps: Health Maintenance Due: BP CONTROLLED (<130/80) due on 1977 DTAP,TDAP,TD(1 - Tdap) due on 1978 COLORECTAL CANCER SCREENING,SEE MODIFIER due on 2009 ANNUAL PCP TEAM CHRONIC DISEASE VISIT due on 08/26/2016 DIABETES SCREEN due on 10/26/2018 - ordered ( will in April) ? Last office visit: 08/26/2015 ? Future office visit:Physical next available with pcp or truck bracer Jaky Cameron CMA [facility] Vital Signs Date Time Vital Sign Value Performing Clinician Felisha padron 06-28-2023 11:44-0400 Body mass index (BMI) [Ratio] 23.3 kg/m2 [facility] 06-28-2023 11:44-0400 Body weight 76.11 kg [facility] 06-28-2023 10:16-0400 Body height 180.34 cm [facility] 06-28-2023 10:16-0400 Body temperature 98 [degF] [facility] 06-28-2023 10:16-0400 Diastolic blood pressure 123 mm[Hg] [facility] 06-28-2023 10:16-0400 Heart rate 81 /min [facility] 06-28-2023 10:16-0400 Respiratory rate 14 /min [facility] 06-28-2023 10:16-0400 SaO2% (BldA) [Mass fraction] 98 % [facility] 06-28-2023 10:16-0400 Systolic blood pressure 183 mm[Hg] [facility] 07-21-2022 11:00-0400 Diastolic blood pressure 97 mm[Hg] No Primary Care Physician [facility] Work Phone: 07-21-2022 11:00-0400 Heart rate 60 /min No Primary Care Physician [facility] Work Phone: 07-21-2022 11:00-0400 Respiratory rate 16 /min No Primary Care Physician [facility] Work Phone: 07-21-2022 11:00-0400 SaO2% (BldA) [Mass fraction] 100 % No Primary Care Physician [facility] Work Phone: 07-21-2022 11:00-0400 Systolic blood pressure 152 mm[Hg] No Primary Care Physician [facility] Work Phone: 07-21-2022 10:04-0400 Inhaled oxygen flow rate 2 L/min No Primary Care Physician [facility] Work Phone: 07-21-2022 08:31-0400 Body height 182.88 cm No Primary Care Physician [facility] Work Phone: 07-21-2022 08:31-0400 Body mass index (BMI) [Ratio] 24.7 kg/m2 No Primary Care Physician [facility] Work Phone: 07-21-2022 08:31-0400 Body temperature 97.5 [degF] No Primary Care Physician [facility] Work Phone: 07-21-2022 08:31-0400 Body weight 82.55 kg No Primary Care Physician [facility] Work Phone: 07-13-2022 14:57-0400 Body mass index (BMI) [Ratio] 24 kg/m2 No Primary Care Physician [facility] Work Phone: 07-13-2022 14:57-0400 Body weight 82.61 kg No Primary Care Physician [facility] Work Phone: Encounters Encounter Date Encounter Type Care Provider Facility Start: 11-25-2024 ambulatory No Primary Car e Physician Facility:[facility] Start: 10-31-2024 ambulatory [facility] Facility :[facility] Start: 09-13-2024 End: 09-13-2024 ambulatory Cosme Friend Facility:[facility] Start: 08-21-2024 End: 08-22-2024 ambulatory [facility] Facility:[facility] Start: 04-25-2024 ambulatory [facility] Facility: [facility] Start: 04-19-2024 End: 04-19-2024 Emergency department patient visit Maurice Garcias Facility:[facility] Start: 06-28-2023 End: 06-28-2023 [facility] Start: 05-05-2023 End: 05-05-2023 ambulatory [facility] Work Phone: Start: 05-05-2023 End: 05-05-2023 Patient encounter procedure [facility] Start: 07-21-2022 End: 07-21-2022 ambulatory No Primary Care Physician [facility] Work Phone: Start: 07-21-2022 End: 07-21-2022 Patient encounter procedure No Primary Care Physician [facility]-Cat Scan, [facility] Start: 07-13-2022 Registered Recurring No Primar y Care Physician [facility] Start: 07-13-2022 End: 07-13-2022 Patient encounter procedure No Primary Care Physician [facility] Start: 07-04-2022 End: 07-04-2022 Patient encounter procedure No Primary Care Physician [facility] Procedures Date Procedure Procedure Detail Performing Clinician Start: 06-28-2023 Plain x-ray of pelvi s and lower extremity Start: 07-21-2022 Biopsy/Inj or Needle Placement No Primary Care Physician Plan of Treatment Date Care Activity Detail Author Start: 07-21-2022 Diagnostic bone lara ow biopsies & aspirations DX BONE MARROW BX & ASPIR [facility] Work Phone: Start: 07-21-2022 Following clinical p athway protocol [facility] Work Phone: Start: 07-21-2022 Catheterization of vein [facility] Work Phone: Start: 07-21-2022 Oxygen therapy [facility] Work Phone: Start: 07-21-2022 Patient discharge [facility] Work Phone: Start: 07-21-2022 Vital signs measurements [facility] Work Phone: Bone marrow biopsy, needle or trocar [facility] Work Phone: Patient Education [facility] Work Phone: Patient referral [facility] Work Phone: Immunizations Immunization Date Immunization Notes Care Provider Manisha marcelino 08-23-2021 Covid ([employer]) No Primary Care Physician [facility] 08-23-2021 tetanus toxoid, redu efrain diphtheria toxoid, and acellular pertussis vaccine, adsorbed No Primary Care Physician [facility] 07-14-2014 Influenza virus vaccine No P rimwright Care Physician [facility] Payers Date Payer Category Payer Unknown [id number] 2024 Self-pay [id number] [id number] Unknown [id number] 2015 Medicare MEDICARE PART A B [id number] Unknown [id number] 2.16.8 [id number] Unknown [id number] 2.16.8 [id number] Unknown [id number] 2.16.8 [id number] Unknown [id number] 2.16.8 [id number] Unknown [id number] 2.16.8 [id number] Unknown [id number] 2.16.8 [id number] Unknown [id number] 2.16.8 [id number] Unknown [id number] 2.16.8 [id number] Social History Date Type Detail Facility Start: 07-21-2022 End: 06-28-2023 Tobacco smoking status NHIS Unknown if ever smoked [facility] Start: 12-31-2013 None [facility] Start: 12-31-2013 Spouse/ Signif icant Other [facility] Start: 10-04-2020 Cigarettes [facility] Start: 1960 Sex Assigned At Male [facility] Mental Status Date Assessment Result Facility 07-21-2022 Cognitive function Voice/Name;Touch/Shaki ng [facility] Work Phone: Discharge summary note 08-22-2024 Note Date & Type Note Facility 08-22-[address] [facility] Medical Records Department [address] [place] [address] Discharge Summary 08/22/24 1222 MR#: [id number] Acct: [id number] Name: AGUSTIN GUERRIER JrKaren Rep #: [id number] : 1960 63 From: Yessenia Molina DO PCP: Care Physician,No Primary Status:ADM ANA MARIA Location: ICU ICU02-1 Providers Date of Admission: 08/21/24 Date of Discharge: 08/22/24 Primary Care Physician: No Primary Care Phys Reason For Visit: HYPERTENSIVE EMERGENCY WITH GI BLEED Diagnosis Discharge Diagnosis (1) Rectal bleed: Status: Acute Code(s): K62.5 - Hemorrhage of anus and rectum (2) Hypertensive emergency: Status: Acute Code(s): I16.1 - Hypertensive emergency Medications at Discharge Home Medications sildenafil 50 mg tablet (Viagra) 50 mg PO DAILY PRN erectile dysfunction 07/08/22 gabapentin 300 mg capsule 300 mg PO DAILY 07/13/22 amlodipine 10 mg tablet 10 mg PO DAILY #30 tabs 08/22/24 cephalexin 500 mg capsule 500 mg PO Q6H 7 days #28 caps 08/22/24 lisinopril 40 mg tablet 40 mg PO DAILY #30 tabs 08/22/24 Hospital Course Operations None Summary of Care Provided Minutes Spent on Discharge: 37 Hospital Course: Patient is a 63-year-old white male who presented to the emergency department at [facility] on 08/21/2024 for rectal bleeding. Evidently he is hard of hearing so daughter helped with a lot of history on presentation. He had had rectal bleeding for about 2 days. He denied abdominal pain and had not had any episodes like this previously. It was reported he had a colonoscopy in 2013 and had some polyps at that time but no other abnormalities. He has chronic thrombocytopenia and denied any other significant symptoms. Vital signs on presentation showed a temperature of 97.2, heart rate 77, pulse 16, blood pressure was 232/121 with a repeat 217/124, pulse ox was 95 to 100% on room air. CBC was overtly unremarkable. His initial hemoglobin was 15.6 and repeat hemoglobins have been stable. Platelet count was 50,000 which is comparable to his baseline and he had no left shift. Coags were unremarkable. Chemistry panel was overtly unremarkable with stable renal function at 1.2. Glucose was 133. Lactic acid was 1.4. TSH was found to be markedly elevated at 17.3, but his free T4 was found to be within normal limits. UA was performed and is consistent with infection showing some occult blood, nitrite, and leuk esterase with white cells at 50-100 and bacteria 1+. His only blood pressure medication at home is lisinopril and he is reportedly compliant with this. His hemoglobin was cycled and remained stable between 14.5 and 15.5 for the entire hospitalization and was checked every 6 hours x 4. This is compatible with his baseline hemoglobin. Given the stability of his hemoglobin and lack of any ongoing bleeding we will have him follow-up as an outpatient to have a colonoscopy as he is due for a screening colonoscopy as well since has been greater than 10 years since his last. We have made an appointment for him with Dr. Wisdom to be seen on 09/13/2024 at 11:30 AM. This information was given to him at the time of discharge. With regards to his blood pressure. He was initially placed on a Cardene drip which was quickly weaned. He was maintained on his home lisinopril and Norvasc 10 mg was added. This seemed to be sufficient and his blood pressure at the time of discharge was 136/89. He does not currently have a primary care physician and we did give him a list of local primary care physicians that have availability. His family ensured us that they would get him follow-up. They also have a home blood pressure cuff and intend on taking his home blood pressure once a day in the afternoon or late morning after he is taken his blood pressure medications and keep track of those to follow-up. Given the appearance of his UA on admission a urine culture was sent and he was placed on Keflex at the time of discharge. I will follow for culture results to ensure sensitivity of the organism to the antibiotics of which we discharged him. He was not taking his Synthroid on an empty stomach so we will encourage this. Prescriptions for the amlodipine 10 mg daily and the Keflex were sent to local pharmacy prior to discharge. Discharge diagnoses: Hypertensive urgency-not emergency as there was no sign of endorgan damage Rectal bleeding-hemoglobin is stable and outpatient referral made Abnormal UA with suspected UTI Chronic thrombocytopenia-stable History hepatitis C Peripheral neuropathy Erectile dysfunction History of stroke History of throat cancer Tobacco abuse Severe hearing loss Physical Exam Const no apparent distress, average body habitus and no limitations; Negative for healthy appearing Constitutional Narrative: Chronically ill-appearing upper middle-aged, white male, lying in bed sleeping, family is at b (more content not included)... [facility] Discharge summary Note Date & Type Note Facility Discharge summary Note Date/Time June 28, 2023 10:30am [facility] Medical Records Department [address] [place] [address] Emergency Department Summary 06/28/23 MR#: [id number] Acct: [id number] Name: AGUSTIN GUERRIER Jr. Rep #:[id number] : 1960 62 From: Paresh Elam PCP: Dr. Sandro Raza MD Status:REG E R Location: ED [facility] History of Present Illness Chief Complaint: Lower Extremity Injury [facility] Medical History CVA (cerebral vascular accident) Fractures Hypertension Neck fracture Peripheral neuropathy Smoker Throat cancer Thrombocytopenia Home Medications sildenafil 50 mg tablet (Viagra) 50 mg PO DAILY PRN 07/08/22 [History Last Taken Unknown] gabapentin 300 mg capsule 300 mg PO DAILY 07/13/22 [History Last Taken 07/20/22 20:00] lisinopril 40 mg tablet 40 mg PO DAILY 07/13/22 [History Last Taken 07/21/22 07:00] melatonin 3 mg tablet 3 mg PO QHS PRN sleep 07/13/22 [History Last Taken Unknown] Allergy/AdvReac Type Severity Reaction Status Date / Time No Known Allergies Allergy Verified 06/28/23 10:15 Family History Grandmother Hypertension maternal Grandfather Hypertension paternal CVA (cerebral vascular accident) paternal Social History household members: spouse number of children: 5 current occupational status: disabled Smoking Status: Current every day smoker tobacco type: cigarettes Tobacco: How many years used: 30 alcohol intake: current alcohol intake frequency: 3 or more drinks per day Alcohol type: beer and hard liquor substance use type: marijuana EXAM Physical Exam Const Vital Signs: 06/28/23 10:16 Temperature 98 F Temperature Source Temporal Pulse Rate 81 Respiratory Rate 14 Blood Pressure 183/123 H Blood Pressure Mean 143 Pulse Ox 98 Oxygen Delivery Method Room Air MDM MDM MDM Narrative Medical decision making narrative: HISTORY OF PRESENT ILLNESS: 62-year-old male here with right leg pain. The patient is coming by his father provides majority history given patient's history of stroke. He states there isno fall or trauma however patient complained of right leg pain that started today. No complaint of new focal weakness or loss sensation today. REVIEW OF SYSTEMS: Pertinent positives: Leg pain Pertinent negatives: Fall, new loss of sensation, PHYSICAL EXAM: Nursing triage notes reviewed, Vital signs reviewed Constitutional: please see mdm Lungs: Clear to auscultation, No wheezing or rales. No increased work of breathing, no conversational dyspnea, no accessory muscle use, no nasal flaring. No respiratory distress noted Heart: Regular rate and rhythm, No murmurs, No rubs and No gallops, 2+ distal pulses (radial, femoral, posterior tibial) in all extremities Abdomen: Soft, there is no tenderness, rigidity, rebound or guarding, no obviousperitoneal signs, no palpable pulsatile abdominal masses, no auscultated abdominal bruit : No CVAT Back: No midline step-offs deformities tenderness or rashes noted Extremities: No edema, no obvious joint erythema, edema, intact range of motion in ankle knee and hip. TTP with internal hip rotation and hip flexion. No TTP over greater trochanter. Compartments are soft. Neuro: Intact sensation L1-S1 dermatomal distributions. Intact 5/5 strength in hip flexion (T12-L3). Knee extension (L2-L4). Ankle dorsiflexion (L4-L5). Ankle plantar flexion (S1). Great toe extension (L5). 2+ patellar and AchillesDTRs. Skin: No rash or lesions noted, no crepitus or bullae noted MEDICAL DECISION MAKING: Chief Complaint: Leg pain External records reviewed: No recent advanced imaging of the involved extremity Factors affecting care: Hypertension, peripheral neuropathy ALL IMAGES (IF OBTAINED) HAVE BEEN PERSONALLY REVIEWED AND INTERPRETED BY MYSELF. MDM Narrative: Patient was hemodynamically stable (hypertension noted), afebrile, nontoxic-appearing. I considered the following differential diagnosis: Fracture, dislocation, bony contusion, septic arthritis, arterial occlusion. Exam consistent right hip pathology with pain with internal rotation and flexion. Obtained x-ray to rule out fracture dislocation of the right hip. X-ray was negative. X-ray was remarkable for evidence of femoral acetabular impingement. This will be treated with NSAIDs and close orthopedic follow-up for evaluation and further management. No clinical evidence of septic arthritisor arterial occlusion at this time. No evidence of fracture or dislocation. The patient and/or family, caregivers express understanding. The patient and/orfamily, caregivers agrees with the plan. Shared decision making: I will have a discussion with the patient and or visitors regarding risk/benefits of further testing or admission. They will be made aware of of the risk/benefits inherent in this decision they will be given the opportunity to voice understanding. Total critical care time today provided was at least 0 minutes. This excludes separately billable procedures. Critical care time (if documented) is secondary to the patient having high probability of clinically significant/life threatening deterioration in the patient's condition which required my urgent intervention. Radiography Diagnostic Testing: Clinical Impression(s) from Imaging Studies Hip/Pelvis X-Ray 06/28/23 10:51 IMPRESSION: Findings suggestive of a right femoral acetabular impingement. Electronically Signed: Asher Sawyer MD at 11:13 EDT , Discharge Plan Triage Chief Complaint: Lower Extremity Injury ED Provider: Paresh Portillo Dx/Rx/DC Orders Clinical Impression: Femoral acetabular impingement Instructions: ED Hip Strain Prescriptions: No Action sildenafil [Viagra] 50 mg tablet 50 mg PO DAILY PRN Rx Instructions: administer 30 minutes to 4 hours before activity gabapentin 300 mg capsule 300 mg PO DAILY Patient Comments: TAKE 1 CAPSULE BY MOUTH AT BEDTIME FOR MUSCLE SPASMS FROM STROKE lisinopril 40 mg tablet 40 mg PO DAILY Patient Comments: TAKE 1 TABLET BY MOUTH DAILY melatonin 3 mg tablet 3 mg PO QHS PRN (Reason: sleep) Patient Comments: TAKE 1 TABLET AT SUPPER AND AT BEDTIME Primary Care Provider: Sandro Raza Referrals: Warren Vieyra DO [Med Staff - Active Staff] - Sandro Raza MD [Primary Care Provider] - Activity Restrictions/Additional Instructions: Thank you for trusting us with your care today! Please take Tylenol (2 pills, 650 mg), ibuprofen (2 pills, 400 mg) every 6 hoursas needed for pain and fever control. Please return to the emergency department if your symptoms change or worsen. Specifically if develop worsening pain, if you cannot ambulate, if you fall, if you lose consciousness. Please follow with your primary care physician for further outpatient evaluationand management. Disposition Disposition: Home, Self Care What to do if you have Problems For any increased pain, shortness of breath, bleeding, nausea or vomiting, chestpain, or any unexpected problems, contact your Primary Care Provider. Call [facility] ([phone]) or report to the closest Emergency Room. Call 911 if necessary. 06/28/23 1137 <Electronically signed by Paresh Portillo DO> Cosigner Signature (if applicable): CC: Dr. Sandro Raza MD ~ Signed [facility] Work Phone: Evaluation note Note Date & Type Note Facility Evaluation note Diagnosis Onset Date Thrombocytopenia chronic [facility] Work Phone: Evaluation note Note Date & Type Note Facility Evaluation note No assessment information availa ble [facility] Work Phone: Hospital Discharge instructions Note Date & Type Note Facility Hospital Discharge instructions Additional Instructions Thank you for trusting us with your care today! Please take Tylenol (2 pills, 650 mg), ibuprofen (2 pills, 400 mg) every 6 hours as needed for pain and fever control. Please return to the emergency department if your symptoms change or worsen. Specifically if develop worsening pain, if you cannot ambulate, if you fall, if you lose consciousness. Please follow with your primary care physician for further outpatient evaluation and management. [facility] Work Phone: Summary Purpose Family History No Family History Records Found Relationship Condition Age at Onset Recorded Date/T soo grandmother Hypertension Unknown grandfather Hypertension Unknown Cerebrovascular accident (CVA) Unknown Advance Directives No Advanced Directives Records Found Advance Directive Response Recorded Date/ Time Advance Directives No July 02, 2015 2:04am Living Will No August 23 7:24pm Power of Medical Educator No August 23, 2021 7:24pm Advance Directive Response Recorded Date/ Time Advance Directives No July 02, 2015 2:04am Living Will No June 28 10:36am Power of Medical Educator No June 28 023 10:36am Chief Complaint and Reason for Visit Chief Complaint NEW-THROMBOCYTOPENIA BONE MARROW BX Reason for Visit Thrombocytopenia Chief Complaint LEG Additional Source Comments (unrecognized sect ion and content) No Status Records FoundNo Status Records Found INFORMATION SOURCE (unrecogn ized section and content) DATE CREATED AUTHOR 01/02/2020 [facility] DATE CREATED AUTHOR AUTHOR'S ORGANIZ ATION 11/27/2024 [facility] Goals (unrecognized section and content) Goals may be documented in a n alternate sectionGoals may be documented in an alternate sectionGoals may be documented in an alternate section Care Teams (unrecognized sec tion and content) Team Status: Active Member Role Status Dates No Primary Care Physician Family Provider Active Dr. Sandro Raza MD Primary Care Provider Active Team Status: Inactive Member Role Status Dates Dr. Sandro Raza MD Primary Care Provider, Attending Provider Active Team Status: Inactive Member Role Status Dates Dr. Sandro Raza MD Primary Care Provider Active Dr. Paresh Portillo , Emergency Provider Active FOR RECORDS PERTAINING TO PATIENTS WHO ARE OR HAVE BEEN ENROLLED IN A CHEMICAL DEPENDENCY/SUBSTANCEABUSE PROGRAM, SOME INFORMATION MAY BE OMITTED. This clinical summary was aggregated from multiple sources. Caution should be exercised in using it in the provision of clinical care. This summary normalizes information from multiple sources, and as a consequence, information in this document may materially change the coding, format and clinical context of patient data. In addition, data may be omitted in some cases. CLINICAL DECISIONS SHOULD BE BASED ON THE PRIMARY CLINICAL RECORDS. [employer] provides no warranty or guarantee of the accuracy or completeness of information in this document.
--- NOTE | 2025-08-03 07:31 | ED.RN ---
dr peralta notified of BP 217/117, verbal given to hold off on any antihypertensives right now
--- NOTE | 2025-08-03 07:33 | ED.RN ---
Rn discussed with Primary RN Destiny regarding allowing more visitors at bedside. Destiny states I would rather wait right now for more people to come back since he still has to be changed, placed on the alarm security or surveillance monitor and the neurologist comes on to assess him. Patients 3 family members aware and agreeable to RNs request. A 4th family member shows up asking to go back to patients room. RN states at this time, the RN has asked only 2 at bedside. 4th family member states if he's having a stroke I want to be back with my dad. RN states I understand but there is a lot happening right now and the room is smaller. Family member states I am going back there. RN states I will check again with the primary nurse. Destiny RN states Can we just wait until after we talk to [facility]? This RN agreeable and asks Destiny to relay message to visitors at bedside. 2 family members in the waiting room informed of RNs request and agreeable.
[2025-08-03 07:39] LABS: Hematocrit 46.0 % (40-54); Hemoglobin 16.1 g/dL (13.0-16.5); Immature Granulocytes Count 0.070 X10^3/uL (0.0-0.0); Mean Corp Hgb Conc 35.0 g/dL (32-36); Mean Corpuscular Volume 87.6 fL (80-94); Mean Platelet Vol. 13.7 fl (6.2-12.0); NRBC Flagged by Analyzer 0 % (0-5); POSITIVE COUNT YES; Platelet Count 54 K/mm3 (150-450); RBC Distribution Width CV 13.2 % (11.6-14.6); RBC Distribution Width SD 41.9 fl (35.1-43.9); Red Blood Count 5.25 M/mm3 (4.6-6.2); White Blood Count 7.3 K/mm3 (4.4-11.0)
[2025-08-03 07:41] LABS: Partial Thromboplast Time 25.5 Seconds (24.1-36.2); Prothrombin Time (Protime)PT. 13.0 SECONDS (11.7-14.9)
[2025-08-03 07:52] LABS: AST(SGOT) 37 U/L (<=37); Alanine Aminotransfer ALT/SGPT 44 U/L (<=46); Albumin, Serum 4.4 g/dL (3.4-4.8); Alkaline Phosphatase 79 U/L (40-129); Anion Gap 15 (5-15); BUN 20 mg/dL (4-19); BUN/Creat Ratio 15.1 RATIO (10-20); Calcium,Total 9.5 mg/dL (7.6-11.0); Carbon Dioxide 24.2 mmol/L (21.0-32.0); Chloride 101 mmol/L (98-108); Estimated Creatinine Clearance 66.17 ml/min (50-250); Globulin 4.0 g/dL (2.2-4.2); Glucose 139 mg/dL (70-99); Potassium 3.2 mmol/L (3.3-5.1); Troponin T High Sensitivity 15 ng/L (<=22)
[2025-08-03] MEDS: NICARdipine 25 MG in 0.9% Normal Saline (250mL Bag) 240 ML 50 MG CONT INF (07:59)
[2025-08-03] MEDS: Potassium Chloride 10mEq/100mL 10 MEQ/100 ML IV.SOLN. 100 MEQ IV BOLUS (08:33)
[2025-08-03 08:46] LABS: Magnesium 2.1 mg/dL (1.5-2.2)
== END 2025-08-03 08:36 | disposition short-term general hospital (02) ==
PROVIDERS: Emergency Provider Student in an Organized Health Care Education/Training Program; Visit Provider Student in an Organized Health Care Education/Training Program
DX: I63.231 Cerebral infarction due to unspecified occlusion or stenosis of right carotid arteries (principal); R29.702 NIHSS score 2; D69.6 Thrombocytopenia, unspecified; I16.1 Hypertensive emergency; E87.6 Hypokalemia; F17.210 Nicotine dependence, cigarettes, uncomplicated; H91.90 Unspecified hearing loss, unspecified ear; Z79.899 Other long term (current) drug therapy
CPT/HCPCS: 70450; 70496; 70498; 80053; 83735; 84484; 85025; 85610; 85730; 93005; 96365; 96375; 99285; Q9967; A4216; J2405

== ENCOUNTER 2025-09-09 21:19 | Emergency (ER) | payer MEDICARE, MEDICAID, SELFPAY ==
[2025-09-09 21:19] VITALS: BP 143/95; PULSE 77; RESP 20; TEMP 36.2; O2SAT 100; BMI 28.5
[2025-09-09 21:30] VITALS: BP 131/85; PULSE 73; RESP 16; O2SAT 100
--- NOTE | 2025-09-09 21:35 | EX.ED.DYSGE1 ---
HPI History of Present Illness Chief Complaint: Syncope Detail of Chief Complaint: Posttussive syncope Informant: patient, spouse/S.O. and family Onset/Context/Timing Onset: Today Context: Sudden Onset Timing: Intermittent Quality: Patient had a hard coughing spell and became pale and passed out Location: At home Current Severity: Gone Maximum Severity: Severe Worsened by: Coughing hard Relieved by: Not applicable Associated Symptoms Associated Symptoms: Pallor with brief loss of consciousness with no abnormal motor activity Narrative Narrative: Patient 64-year-old male. He has history of gastroduodenitis, hypertension, hepatitis C, cannabis use And chronic cough who presents after single episode. He was coughing hard according to spouse and daughter. states he was pale. There was no abnormal motor activity. There is no incontinence of urine or stool. He was smoking marijuana prior to the coughing spell. He smokes marijuana daily. According to the and patient he has no history of coronary disease, congestive heart failure or COPD. Daughter states she has stenosis of one of his carotid arteries. Prior similar symptoms: No Recent Illness/Hospitalization: No PFSH [facility] Medical History Wears dentures Depression Bipolar disorder Alcohol use Difficulty swallowing Gastric reflux Shortness of breath on exertion Smoker Thrombocytopenia Peripheral neuropathy Fractures Neck fracture Throat cancer CVA (cerebral vascular accident) Hypertension Home Medications ?Medication ?Instructions ?Recorded ?Last Taken ?Type sildenafil 50 mg tablet (Viagra) 50 mg PO DAILY PRN erectile 07/08/22 Unknown History dysfunction amlodipine 10 mg tablet 10 mg PO DAILY #30 tabs 08/22/24 Unknown Rx lisinopril 40 mg tablet 40 mg PO DAILY #30 tabs 08/22/24 Unknown Rx Allergy/AdvReac Type Severity Reaction Status Date / Time No Known Allergies Allergy Verified 09/09/25 21:19 Family History Grandmother Hypertension maternal Grandfather Hypertension paternal CVA (cerebral vascular accident) paternal Social History household members: spouse number of children: 5 current occupational status: disabled Smoking Status: Former smoker Tobacco: How many years used: 30 alcohol intake: current alcohol intake frequency: 3 or more drinks per day Alcohol type: beer and hard liquor substance use type: marijuana ROS ROS ED Constitutional Constitutional ED: Denies chills, fever(s), subjective or sweats Eyes Eyes: Denies blurry vision, change in vision or diplopia ENT ENT ED: Denies rhinorrhea or sore throat Cardiovascular Cardiovascular: Denies chest pain, orthopnea, palpitations, paroxysmal nocturnal dyspnea or racing heartbeat Respiratory/Chest Respiratory/Chest: Reports cough; Denies dyspnea, dyspnea on exertion, orthopnea, paroxysmal nocturnal dyspnea or sputum Gastrointestinal Gastrointestinal: Denies abdominal pain, nausea or vomiting Musculoskeletal Musculoskeletal: Denies arthralgias or myalgias Integumentary Denies rash Hematologic/Lymphatic Hematologic/Lymphatic: Reports systems reviewed and no addt'l complaints, except as documented EXAM Physical Exam Const Vital Signs: 09/09/25 21:19 09/09/25 21:30 09/09/25 21:30 Temperature 97.2 F L Temperature Source Temporal Pulse Rate 77 73 Respiratory Rate 20 H 16 Respiratory Effort Normal Respiratory Pattern Normal Blood Pressure 143/95 H 131/85 H Blood Pressure Mean 111 100 Pulse Ox 100 100 Oxygen Delivery Method Room Air Room Air Positive well nourished and well developed General Appearance ED: well developed and NAD; Negative for cyanotic, diaphoretic or pallor HEENT Reports moist mucous membranes HEENT Narrative: Head is atraumatic and normocephalic. Ears are normal. Nares patent. Posterior pharynx is normal. Eyes PERRL and EOMs intact bilaterally General Eye ED: Negative for pale conjunctiva or scleral icterus Chest Wall inspection of chest normal and palpation of chest normal Resp normal respiratory effort and clear to auscultation bilaterally Cardio regular rate, regular rhythm, S1 normal heart sound, S2 normal heart sound and no murmurs GI normal to inspection, nondistended, normoactive bowel sounds, non-tender, non-distended and no masses; Negative for hepatosplenomegaly Extremity normal to inspection General Extremety ED: Negative for edema or tenderness General Extremity: Negative for edema Neuro oriented x3, CN's II-XII intact bilaterally and no sensory deficits noted Sensorium / Orientation: alert Motor Exam: strength 5/5 throughout Psych mental status grossly normal Skin no rashes or lesions noted, no wounds and skin turgor normal General Skin Exam: Negative for jaundice or pallor MDM MDM MDM Narrative Medical decision making narrative: Patient's history and physical is consistent with vasovagal syncopal episode due to coughing. Will place on the monitor to assess for dysrhythmia and EKG to rule out cardiac ischemia. If either 1 reveals any abnormal will obtain blood work otherwise plan is to discharge to home. Rhythm Strip Rhythm Strip: Sinus Rhythm Rate: 66 Ectopy: None EKG Initial EKG: Attestation: I personally reviewed and interpreted this EKG as follows: Interpretation: Sinus Rhythm (Rate is 64. EKG is normal. LA interval 240 ms. QRS duration 92 ms. QT duration 412 ms. [place] is normal) Treatment and Re-Evaluation :: Patient had no dysrhythmia during his stay. EKG is normal. Therefore we will discharge to home. Discharge Plan Triage Chief Complaint: Syncope ED Provider: Maurice Garcias Dx/Rx/DC Orders Clinical Impression: Post-tussive syncope, Hypertension, Hepatitis C, Cannabis use disorder Instructions: ED Fainting, Vagal Reaction Prescriptions: No Action sildenafil [Viagra] 50 mg tablet 50 mg PO DAILY PRN (Reason: erectile dysfunction) Rx Instructions: administer 30 minutes to 4 hours before activity amlodipine 10 mg Tablet 10 mg PO DAILY Qty: 30 1RF lisinopril 40 mg tablet 40 mg PO DAILY Qty: 30 1RF Primary Care Provider: Care Physician,No Primary Referrals: Care Physician,No Primary [Primary Care Provider, Medical] Activity Restrictions/Additional Instructions: Follow-up with your doctor as needed. Name of your doctor will be located on your [facility] insurance card Print Language: Upper Sorbian Disposition Disposition: Home, Self Care
--- OUTSIDE RECORDS SUMMARY | 2025-09-09 21:52 | XMS RPT_ITS | CCD ---
Author Organization [facility] Care Team Providers Care Sow Manager Name Role Phone Care Physician, No Primary Primary Care Provider Unavailable Dr. Kita Barboza Attending Provider Dr. Sandro Zuniga Referring Provider Unavailable Primary Care Provider Unavailabl e Care Physician, No Primary Primary Care Physicia n Unavailable Janusz DURÁN, Dr. Cooper Attending Physician Unavaila mildred Ramos MD, Dr. Cooper Emergency Department Physici an Unavailable PROVIDER, UNKNOWN Attending Unavailable PROVIDER, UNKNOWN Admitting Unavailable Edy, Zack Attending Unavailable Sandro Zuniga Primary Care Unavailable Ungur, Remus Referring Unavailable Lissette Ramos Attending Unavailable Care Physician, No Primary Primary Care Unava ilable Cosme Wisdom Attending Unavailable Care Physician, No Primary Primary Care Unava ilable Care Physician, No Primary Primary Care Unava ilable Paul Lynn Attending Unavailable Paul Lynn Referring Unavailable Care Physician, No Primary Primary Care Unava ilable Edy, Zack Admitting Unavailable Edy, Zack Consulting Unavailable Ungur, Remus Referring Unavailable Yessenia Molina Attending Unavailable Cosme Wisdom Attending Unavailable Sandro Zuniga Referring Unavailable Care Physician, No Primary Primary Care Unava ilable Care Physician, No Primary Referring Unava ilable Cosme Wisdom Attending Unavailable Care Physician, No Primary Primary Care Unava ilable Edy, Zack Admitting Unavailable Edy, Zack Consulting Unavailable Ungur, Remus Referring Unavailable Yessenia Molina Attending Unavailable Care Physician, No Primary Primary Care Unava ilable Yessenia Molina Consulting Unavailable PAUL LYNN Attending Unavailable PAUL LYNN Referring Unavailable CONSULT, SURGERY - NEURO Consulting Unavail able MATEO SANTIAGO Admitting Unavailable LISSETTE RAMOS R Referring Unavailable PAUL LYNN Attending Unavailable Medications Current Medications Medication Drug Class(es) Dates Sig (Normalized) Sig (Original) amLODIPine 10 mg oral tablet (1 source) Dihydropyridine Calcium Channel Mac Start: 08-22-20 take 1 tablet by mouth once daily atorvastatin 40 mg oral tablet (2 sources) HMG-CoA Reductase Inhibitor Start: 08-05-20 End: 08-08-20 take 1 tablet by mouth at bedtime Atorvastatin 40 MG tablet Take 1 tablet by mouth at bedtime. 90 tablet 08/06/2025 Active hydroCHLOROthiazide 25 mg oral tablet (3 sources) Thiazide Diuretic Start: 08-09-20 End: 08-08-20 take 1 tablet by mouth once daily hydroCHLOROthiazide 25 MG tablet Take 1 tablet by mouth daily. 30 tablet 08/09/2025 08/08/2025 Discontinued Start: 08-09-2025 take 1 tablet by jt th once daily hydroCHLOROthiazide 25 MG tablet Take 1 tablet by mouth daily. 60 tablet 08/09/2025 Active Start: 08-08-2025 End: 08-08-2025 take 25 mg by mouth once daily 25 mg, Oral, DAILY, First dose on Mon08/08/25 at 1345, Until Discontinued losartan potassium 100 mg oral tablet (6 sources) Angiotensin 2 Receptor Mac Start: 08-09-2025 take 1 tablet by mouth once daily Losartan 100 MG tablet Take 1 tablet by mouth daily. 90 tablet 08/09/2025 Active Start: 08-07-2025 End: 08-08-2025 take 100 mg by mouth once daily 100 mg, Oral, DAILY, First dose (after last modification) on Mon08/07/25 at 0900, Until Discontinued Start: 08-06-2025 End: 08-08-2025 take 1 tablet by mouth once daily Losartan 50 MG tablet Take 1 tablet by mouth daily. 90 tablet 08/07/2025 08/08/2025 Discontinued (Stop Taking at Discharge) Start: 08-05-2025 End: 08-06-2025 take 1 dose by mouth once 25 mg, Oral, ONCE, 1 dose, O n 08/06/25 at 1015 24 hr NIFEdipine 60 mg extended release oral tablet (5 sources) Dihydropyridine Calcium Channel Mac Start: 08-09-2025 take 1 tablet by mouth once daily NIFEdipine 60 MG Tab SR 24 HR tablet Take 1 tablet by mouth daily. 90 tablet 08/09/2025 Active Start: 08-09-2025 End: 08-08-2025 take 60 mg by mouth once daily 60 mg, Oral, DAILY, Fir st dose (after last modification) on 08/09/25 at 0900, Until Discontinued, Slow release product. Do not chew or crush. Start: 08-07-2025 End: 08-08-2025 take 1 dose by mouth once 30 mg, Oral, ONCE, 1 dose, O n 08/08/25 at 0915, Slow release product. Do not chew or crush. Start: 10-08-2020 End: 08-04-2025 take 1 tablet by mouth every twelve hours NIFEdipine 30 MG Tab SR 24 HR Take 1 tablet by mouth every 12 hours. 60 tablet 1 10/08/2020 08/04/2025 Discontinued (Medication Reconciliation (suppress cancel msg)) sildenafil 50 mg oral tablet (4 sources) Phosphodiesterase 5 Inhibitor Start: 07-08-2022 Completed/Discontinued Medications Medication Drug Class(es) Dates Sig (Normalized) Sig (Original) acetaminophen 325 mg oral tablet (2 sources) Start: 08-03-2025 End: 08-08-2025 take 1 tablet by mouth every four hours as needed 650 mg, Oral, EVERY 4 HOURS NEEDED, Starting on Mónica 08/07/25 at 2127, Until 08/08/25 at 1832, Severe Pain, Moderate Pain, Mild Pain, Oral temp > 99.5, Maximum dose of acetaminophen is 4000 mg from all sources in 24 hours. acetaminophen 325 mg / oxyCODONE hydrochloride 5 mg oral tablet (4 sources) Opioid Agonist Start: 07-03-2015 End: 08-20-2015 Oxycodone-Acetamino phen 1 TABLET tablet Discontinued 1 {tbl} PO EVERY 4 HOURS NEEDED as needed for PAIN July 03, 2015 12:00am August 20, 2015 7:39pm Start: 07-03-2015 End: 08-20-2015 take 1 tablet by mouth every four hours as needed Oxycodone-Acetaminophen Discontinued 1 TABLET PO EVERY 4 HOURS NEEDED July 03, 2015 12:00am August 20, 2015 7:39pm 24 hr buPROPion hydrochloride 300 mg extended release oral tablet (1 source) Aminoketone Start: 04-19-2024 End: 08-21-2024 take 1 tablet by mouth once daily Bupropion Hcl 300 mg tablet extended release 24 hr Discontinued 300 mg PO DAILY April 19, 2024 12:00am August 21, 2024 5:02pm cephalexin 500 mg oral capsule (1 source) Cephalosporin Antibacterial Start: 08-22-2024 End: 09-13-2024 take 1 capsule by mouth every six hours Cephalexin 500 mg capsule Discontinued 500 mg PO EVERY 6 HOURS 28 7 0 August 22, 2024 12:00am September 13, 2024 3:36pm Enoxaparin Sodium (LOVENOX) injection 40 mg (1 source) Start: 08-05-2025 End: 08-08-2025 Enoxaparin Sodium (LOVENOX) injection 40 mg gabapentin 300 mg oral capsule (8 sources) Anti-epileptic Agent Start: 07-08-2022 End: 09-13-2024 take 1 capsule by mouth once daily Gabapentin 300 mg capsule Discontinued 300 mg PO DAILY July 13, 2022 3:12pm September 13, 2024 3:36pm Start: 07-08-2022 End: 07-13-2022 Gabapentin 300 mg capsule Di scontinued NMA PO July 08, 2022 12:00am July 13, 2022 3:13pm Gadopiclenol SOLN 1-25 mL (1 source) Start: 08-04-2025 End: 08-04-2025 1-25 mL, Intravenous, ONCE, 1 dose, On 08/04/25 at 1800 hydrALAZINE (APRESOLINE) injection 10 mg (1 source) Start: 08-05-2025 End: 08-08-2025 take 10 mg intravenously every hour as needed hydrALAZINE (APRESOLINE) injection 10 mg hydrOXYzine hydrochloride 25 mg oral tablet (1 source) Antihistamine Start: 08-07-2025 End: 08-08-2025 take 25 mg by mouth once daily at bedtime as needed 25 mg, Oral, DAILY AT BEDTIME NEEDED, Starting on Mónica 08/07/25 at 0412, Until Mon08/08/25 at 1832, Insomnia iohexol (OMNIPAQUE) 350 MG/ML injection 1-171 mL (1 source) Start: 08-03-2025 End: 08-03-2025 1-171 mL, Intravenous, ONCE, 1 dose, On Mon08/03/25 at 1015, Extravasation Risk, CT Procedure labetalol hydrochloride 5 mg/ml injectable solution (1 source) beta-Adrenergic Mac Start: 08-03-2025 End: 08-03-2025 20 mg, Intravenous, EVERY 10 MINUTES NEEDED, 3 doses, Starting on Mon08/03/25 at 0916, Until Mon08/03/25 at 1232, Administer for Systolic Blood Pressure greater than 140. HOLD if heart rate less than 60., Administration duration: up to 20 mg over 2 minutes. Telemetry required except for HISTOLOGIC TECHNICIAN patients on [address]my [address] 6 and 7. For vials: labetalol should be treated as a SINGLE USE VIAL. Discard remaining contents after one use. Labetalol (NORMODYNE) injection 10 mg (2 sources) Start: 08-05-2025 End: 08-08-2025 take 10 mg intravenously every hour as needed Labetalol (NORMODYNE) injection 10 mg Start: 08-03-2025 End: 08-05-2025 take 10 mg intravenously every hour as needed 10 mg, Intravenous, EVERY 1 HOUR NEEDED, Starting on 08/03/25 at 1222, Until Mon08/05/25 at 0848, SBP > 140 mmHg with HR >60 bpm, Use as initial dose. Use if Heart Rate GREATER THAN 60 beats per minute. Higher dose may be administered if lower dose was previously documented as ineffective 10 minutes after administration and did not result in adverse effects (HR lisinopril 20 mg oral tablet (11 sources) Angiotensin Converting Enzyme Inhibitor Start: 04-19-2024 End: 08-21-2024 take 1 tablet by mouth once daily Lisinopril 20 mg tablet Discontinued 20 mg PO DAILY 30 0 April 19, 2024 12:00am August 21, 2024 5:02pm Start: 07-08-2022 End: 07-13-2022 Lisinopril 40 mg tablet Disc ontinued NMA PO July 08, 2022 12:00am July 13, 2022 3:13pm Start: 10-08-2020 End: 08-04-2025 take 1 tablet by mouth once daily Lisinopril 40 mg tablet Discontinued 40 mg PO DAILY July 13, 2022 3:13pm August 22, 2024 12:45pm 50 ml magnesium sulfate 80 mg/ml injection (1 source) Start: 08-03-2025 End: 08-05-2025 4 g, Intravenous, Administer over 4 Hours, ADMINISTER DIRECTED, Starting on Mon08/03/25 at 1227, Until Mon08/05/25 at 1250, Other, ICU Magnesium Replacement Parameters, Administer 4 grams once if magnesium level is less than or equal to 2.0 mg/dL. If replacing potassium also, replete magnesium prior to KCl administration. EXCLUDE less than 45 kg, SCr greater than or equal to 2 mg/dL, CrCl less than 30 ml/min, ESRD, and renal replacement therapy melatonin 3 mg oral tablet (9 sources) Start: 08-06-2025 End: 08-08-2025 take 3 mg by mouth once daily at bedtime 3 mg, Oral, DAILY AT BEDTIME, First dose on Mon08/06/25 at 0415, Until Discontinued Start: 07-08-2022 End: 04-19-2024 take 1 tablet by mouth at bedtime as needed for sleep Melatonin 3 mg tablet Discontinued 3 mg PO AT BEDTIME as needed for sleep July 13, 2022 3:13pm April 19, 2024 6:24pm Start: 07-08-2022 End: 07-13-2022 Melatonin 3 mg tablet Discon tinued NMA PO July 08, 2022 12:00am July 13, 2022 3:13pm 200 ml niCARdipine hydrochloride 0.2 mg/ml injection (1 source) Dihydropyridine Calcium Channel Mac Start: 08-03-2025 End: 08-05-2025 0-15 mg/hr (0-75 mL/hr), Intravenous, CONTINUOUS, Starting on Mon08/03/25 at 0930, Until Mon08/05/25 at 1246, Initiate at 5 mg/hr. Titrate by 5 mg/hr every 15 minutes to maintain ICH: SBP between 120 and 160 mmHg. Notify prescriber for inability to achieve goals at maximum dose of ordered range or change in clinical condition. Nicotine (1 source) Cholinergic Nicotinic Agonist Start: 08-03-2025 End: 08-08-2025 nicotine (NICODERM CQ) 7 MG/24HR patch 1 patch Ondansetron 4mg/2ml (ZOFRAN) injection 4 mg (1 source) Start: 08-03-2025 End: 08-08-2025 take 4 mg intravenously every four hours as needed Ondansetron 4mg/2ml (ZOFRAN) injection 4 mg pantoprazole 40 mg delayed release oral tablet (4 sources) Proton Pump Inhibitor Start: 07-03-2015 End: 07-03-2015 take 1 tablet by mouth once daily Pantoprazole 40 MG tablet Discontinued 40 mg PO DAILY 120 0 July 03, 2015 12:00am July 03, 2015 8:26am polyethylene glycol 3350 45000 mg powder for oral solution (1 source) Osmotic Laxative Start: 08-03-2025 End: 08-08-2025 17 g, Oral, DAILY NEEDED, Starting on Mon08/03/25 at 1222, Until Mon08/08/25 at 1832, Constipation If No Bowel Movement in 48 Hours sennosides, assisted 8.6 mg oral tablet (1 source) Start: 08-03-2025 End: 08-08-2025 take 8.6 mg by mouth once daily 8.6 mg, Oral, DAILY, First dose on Mon08/03/25 at 1300, Until Discontinued Sodium Chloride (3 sources) Start: 08-03-2025 End: 08-05-2025 Intravenous, at 75 mL/hr, CONTINUOUS, Starting on Mon08/03/25 at 1230, Until Mon08/05/25 at 1126 Start: 08-03-2025 End: 08-05-2025 Intra-arterial, at 1 mL/hr, CONTINUOUS, Starting on Mon08/03/25 at 1230, Until Mon08/05/25 at 1504, Per pressure bag for all transduced lines Start: 08-03-2025 End: 08-03-2025 1-100 mL, Intravenous, ONCE NEEDED, 1 dose, Starting on Mon08/03/25 at 0947, Until Mon08/03/25 at 0948, Flush, CT Procedure Problems Active Problems Problem Classification Problem Date Documented Da te Episodic/Chronic Abdominal pain (12 sources) Right upper quadrant pain; Translations: [Right upper quadrant pain] 10-04-2020 Episodic Acute cerebrovascular disease (20 sources) Hemorrhagic cerebral infarction; Translations: [Nontraumatic intracerebral hemorrhage, unspecified] Onset: 10-04-2020 10-05-2020 Chronic Coagulation and hemorrhagic disorders (9 sources) Platelet count below reference range; Translations: [Thrombocytopenia, unspecified] Onset: 08-08-2025 Chronic E Codes: Natural/environment (4 sources) Dog bite - wound; Translations: [Bitten by dog, initial encounter] 08-31-2021 Episodic Essential hypertension (6 sources) Hypertensive disorder; Translations: [Essential (primary) hypertension] Onset: 08-03-2025 07-13-2022 Chronic Gastritis and duodenitis (4 sources) Gastroduodenitis; Translations: [Gastroduodenitis, unspecified, without bleeding] 10-04-2020 Episodic Hepatitis (4 sources) Chronic hepatitis C; Translations: [Chronic viral hepatitis C] Onset: 08-03-2025 08-08-2025 Chronic Hepatitis (6 sources) Viral hepatitis C; Translations: [Unspecified viral hepatitis C without hepatic coma] Onset: 08-03-2025 10-04-2020 Episodic Hypertension with complications and secondary hypertension (4 sources) Hypertensive urgency ; Translations: [Hypertensive urgency] Onset: 08-22-2024 08-21-2024 Chronic Nausea and vomiting (1 source) Vomiting, unspecified; Translations: [Vomiting, unspecified] Onset: 08-07-2025 Episodic Other infections; including parasitic (1 source) History of hepatitis C; Translations: [Personal history of other infectious and parasitic diseases] 04-27-2024 Episodic Other nervous system disorders (4 sources) Peripheral nerve disease ; Translations: [Polyneuropathy, unspecified] 07-13-2022 Chronic Other non-traumatic joint disorders (4 sources) Hip pain; Translations: [Pain in left hip] 08-21-2015 Episodic Other non-traumatic joint disorders (2 sources) Femoral acetabular impingement; Translations: [Other specified joint disorders, unspecified hip] 06-28-2023 Episodic Residual codes; unclassified (1 source) Creatinine level - finding 04-27-2024 Episodic Sprains and strains (4 sources) Strain of thoracic region; Translations: [Strain of muscle and tendon of unspecified wall of thorax, initial encounter] 10-12-2015 Episodic Past or Other Problems Problem Classification Problem Date Documented Da te Episodic/Chronic Gastrointestinal hemorrhage (4 sources) Gastrointestinal hemorrhage; Translations: [Gastrointestinal hemorrhage, unspecified] Onset: 09-13-2024 Episodic Unclassified (1 source) Onset: 0 10-08-2020 Results Test Name Value Interpretation Reference Range Facility [facility] 08-18-2025 FELIX Telephone (KARRI) ESVIN GUERRIER ([id number]) 1960 M Date Time Provider Department 08/18/25 ANA ALBERTO JR During your visit today, we recorded the following information about you: Vinod Young LPN 08/18/2025 2:32 PM Signed Phoned patient phone number and reached patient's daughter. Notified daughter that we need to refer patient to [facility] de[facility] for post stroke. Phone number given was [phone]. Family will also be calling to set up an appointment to establish with a pcp here at the [facility]. Vinod Young LPN Allergies As of Date: 08/18/2025 (No Known Allergies) Date Reviewed: 12/27/2019 Reviewed by: aLcey Wong Ma - Fully Assessed Prescriptions as of 08/18/2025 - metoprolol succinate ER (TOPROL XL) 25 mg 24 hr tablet Take 1 tablet by mouth once daily. - levothyroxine (SYNTHROID) 50 mcg tablet Take 1 tablet by mouth daily before breakfast. - docusate sodium (COLACE) 100 mg capsule Take 1 capsule by mouth twice daily as needed for Constipation. - pantoprazole DR (PROTONIX) 40 mg tablet Take 1 tablet by mouth twice daily. - sertraline (ZOLOFT) 50 mg tablet Take 1 tablet by mouth once daily. - diphenhydrAMINE-maalo x-lidocaine (BMX 1:1:1) 1:1:1 liqd Take 10 mL by mouth four times daily. - cholecalciferol, Vitamin D3, (VITAMIN D3) 50,000 unit cap capsule Take 1 capsule by mouth once each week. - gabapentin 300 mg capsule Take 2 capsules by mouth three times daily. 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] 09/17/2013 HTN (hypertension) [I10] 03/11/2014 GERD (gastroesophageal reflux disease) [K21.9] 10/23/2014 Depression [F32.A] 10/23/2014 Primary thrombocytopenia, unspecified (HCC) [D6*06/09/2015 Other secondary [...] antral gastritis [K29.50] 07/30/2015 Diarrhea [R19.7] 07/30/2015 Encounter Status:Closed by VINOD YOUNG on 08/18/25 [facility] SP/HP.SP.Marcello 08-18-2025 SP/HP.SP.EV [facility] Speech Pathology [facility] [address] [place] [address] [address] [place] [address] / REHABILITATION SERVICES INITIAL EVALUATION MR#: [id number] Acct: [id number] Name: ESVIN GUERRIER Jr. Rep #: [id number] : 1960 64 From: Karishma Barrientos Referring Dr.: Dr. 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 He was in the hospital for 5 days, and was released on 08/09/2025. He has a history of stroke (5 years ago), GI bleed, thrombocytopenia, hypertensive urgency, hepatitis C, gastroduodenitis, abdominal pain, RUQ abdominal pain, peripheral neuropathy, HTN. Esvin stated that he is currently experiences difficulty with word finding and memory. Medications related to this diagnosis: amlodipine 10 mg Tablet, lisinopril 40 mg tablet, sildenafil [Viagra] 50 mg tablet, sildenafil [Viagra] 50 mg tablet Smoking Status: Current every day smoker Diagnosis Diagnosis: Mild cognitive deficit Pain Is pain an issue with your current prescribed condition?: No Personal Preferred language: Micronesian Patient Allergies Allergies Allergies: Allergies No Known Allergies Allergy (Verified 08/03/25 08:12) CLQT CLQT CLQT Administered: Yes CLQT: Cognitive Linguistic Quick Test (CLQT) is a criterion - referenced assessment designed for adults between the ages of 18 and 89 with known or suspected neurological dysfuntions. The CLQT is to assess strength and weaknesses in five cognitive domains. Severity ratings are within normal limits, mild, moderate, severe deficits. The subtests are as follows: Date: 08/18/25 Attention Attention: WNL Memory Memory: Moderate Executive Functions Executive Functions: WNL Language Language: Mild Visuospatial Skills Visuospatial Skills: WNL Composite Severity Rating Composite Severity Rating: Mild Clock Drawing Severity Rating Clock Drawing Severity Rating: WNL CLQT Comments -: -: Attention: 200 (WNL) Memory: 133 (Moderate) Executive Functions: 32 (WNL) Language: 26 (Mild) Visuospatial Skills: 82 (WNL) Reference: Neuro-QoL instrument Radiation Oncology Patient Plan Plan Plan: At this time, it is recommended that Esvin participates in skilled speech therapy to target mild-moderate cognitive deficits, caused by CVA. Participation in intervention will aid in Esvin being able to better communicate his daily needs and wants as well as function in his daily life. Recommendations Treatment Warranted: Yes Treatment Warranted: Receptive/ Expressive Language and Cognition Progress Prognosis: Excellent Frequency Frequency: 1x/Week Duration: 12 Months Visits in this POC: 52 Patient/Family Goal Patient/Family Goal: To improve word finding skills and memory. Goals that are Established Determination:: Goals will be added/modified as deemed necessary and appropriate. Therapy will be discontinued when results of re-evaluation indicate therapy is no longer needed or lack of progress has been documented. Goal #1-5 Goal #1: Esvin will complete basic to moderately complex confrontation, convergent, and divergent naming tasks with 90% acc independently across 3 measured opportunities to improve word retrieval. Goal #2: Esvin will complete basic to moderately complex immediate, short-term, and working memory tasks with 90% acc independently across 3 measured opportunities. Goal #3: Esvin will complete basic to moderately complex problem solving/reasoning and safety awareness tasks with 90% acc independently across 3 measured opportunities. Education Patient has Indicated that the Following Identified Educational Needs: None The Patient has indicated that they have no educational or learning abilities that may effect their care.: Yes Patient Instruction Patient Education: Diagnosis, Treatment Plan and Goals Person Taught: Patient Teaching Method: Discussion Response to teaching: Verbalize Understanding 08/18/25 1640 CC: Dr. Paul Lynn MD; No Primary Care Physician MCA Signed Normal [facility] Inital Evaluation (1) - PTon 08-14-2025 Inital Evaluation (1) - PT [facility] Physical Therapy [facility] [address] [place] [address] [address] [place] [address] / REHABILITATION SERVICES INITIAL EVALUATION MR#: [id number] Acct: [id number] Name: ESVIN GUERRIER Jr. Rep #: [id number] : 1960 64 From: Denis Hickey DPT, OCS, CSCS Referring : LOREN GILLETTE Status: REG RCR Insurance: [facility] Patient's Visit Information Visit Information Visit Information: ESVIN GUERRIER Jr. is a 64 year old M referred to Physical Therapy by LOREN GILLETTE with a diagnosis of stroke. Date of Evaluation: 08/14/25 Physical Therapist: Denis Hickey, DPT, OCS, CSCS Visit Plan Frequency: 3x /Week Duration: 4-6 Weeks Plan: 3x/week for 4-8 weeks for: IE: educate on course of therapy and bring dtr in to talk into speech adn OT evals and ensure family get him to PT. Need to use wh walker at all times and benefits of sliders or tennis balls. Treat wth: 1. teach home based strength for posture, core, hip and LE and wt shifting. Get I at home. 2. Gait training with cane or no AD for endurance a safety, include steps as safety allows. Subjective Subjective: Had a hemmorhagic stroke over a week ago. Had previous one 5 yrs ago. Was in hospital for a bit 5-6 days and got out 08/09 five days ago. Lives with and dtrs. they are home with him. Stroke symptoms this time: hand not moving as well. R hand. Uses walker now but not needed prior. No falls prior. No falls since stroke using wh walker all the time. Walking at home with walkeer I. Speends day doing nothing and watching tV/playing cards Now. Did the same thing prior to stroke but could get along better Retired from work due to throat CA 2012. 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 No regular ex. Dresses self he says, bathroomI.bathes self in bathtub up and down by himself. (He says and no one else present although dtr brought him and waits out in waiting room.) Objective Objective: Orientation: place: no, thinks clinic? date: no, name Esvin yes to name and birthday Walks with wh walker short steps and poor weight shift back to PT mod I to SBA. No LOB. Trasnfers chair and bed Mod I with UE, pivots walker well. LE AROM WFL, hips limited to 0 ext, knees WFL, ankles WFL but tightness gastroc. HS tight at -30 90/90 test. reflexes 1/3 patella dn achilles Sensation LE grossly WNL to light touch. reciprocal toe adn heel tap are at deficit but able. strength hips 3+ and postural instability, knees 4- flexion adn ext, ankles 4. No side to side asymmetries. Happy and answers questions well although low volume and raspy and extra time needed. Unable to ambulate safely without AD but can with min A straight line short distances with very short and hesitant steps. In talking with dtr: he did not need AD prior to strokes but did use cane at times. Alsways been very sedentary. Balance/Special Test Scores Lower Extremity Functional Score: 0 TUG Test Time Seconds: 18 30 Second Chair Rise Test Seconds: 11 Goals Goal 1:: walk community with can eor less Mod I. Goal Time Frame: 4-6 Weeks Goal 2:: I apropriate home strengfth to leung off sedentarism Goal Time Frame: 4-6 Weeks Goal 3:: 15 30 SSTS to show improved mobiliity and strengght Goal Time Frame: 4-6 Weeks Goal 4:: pt and dtr stating back to normal funciton as prior to recent stroke. Goal Time Frame: 4-6 Weeks Rehabilitation Potential Physical Therapy Diagnosis: weak and imbalanced after recent stroke and hospital stay. Rehabilitation Potential: Fair Anticipated Interventions Patient/Client Instruction: Educate patient on: Condition and Risk Factors For the Purpose of:: To improve nutrient delivery to tissue, To improve muscle performance and motor function, To increase tolerance to activity/condition/po sition, To improve gait and locomotor functions and To improve safety Therapeutic Exercise to Include: Strength training, Balance training and Gait and locomotor training For the Purpose of:: To improve muscle performance and motor function, To increase tolerance to activity/condition/po sition, To improve ability of physical actions for home/community/work/l eisure, To improve gait and locomotor functions and To improve safety Text: Thank you for the opportunity to evaluate your patient. For Medicare and Medicare HMO plans, please review the plan of care and approve it. It will need to be FAXED BACK to us at [phone] for Medicare purposes. For Medicare only, by signing this I certify the plan of care. Please let me know if there are questions or concerns regarding this plan of care. Physician Signature: Date : 08/14/25 8558 CC: LOREN GILLETTE; No Primary Care Physician EBG Signed Normal [facility] OT General Evaluationon OT General Evaluation [facility] Occupational Therapy [facility] [address] [place] [address] / REHABILITATION SERVICES INITIAL EVALUATION MR#: [id number] Acct: [id number] Name: ESVIN GUERRIER Jr. Rep #: [id number] : 1960 64 From: Callie CARBONE/NEAL Marie Referring Dr.: OUT OF TOWN DOCTOR Status: REG R CR Insurance: Applied Identity [facility] Eval Date: [facility] Patient's Visit Information Visit Information Visit Information: ESVIN GUERRIER Jr. is a 64 year old M, referred to Occupational Therapy by LOREN GILLETTE, with a diagnosis of CVA. Date of Evaluation: 08/14/25 Occupational Therapist: RAF Rosales/Cynthia, NEAL Subjective Subjective: This 64 year old male was seen for OT eval with dx of CVA pt states this happened about a week ago. states he had hx of one about 5 years ago. pt states he feels right side is weaker making daily tasks more difficult. pt is right handed pt has not worked since he was treated for throat cancer 2012. 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 pt uses back entrance with no stairs. pt has tub shower combination- has shower chair states no difficulty getting in or out of shower. family does mtg. yard pt states he did to a little cooking- mostly sat and watched TV. pt states he has not driven since his 1st stroke. pt [place] pt also speaks softly due to his throat cancer treatments. ROM ROM Comments: pt demo with full ROM of bilateral UE left shoulder hx of rotator cuff repair pt demo with slower movement of right UE Strength Shoulder: right 4/5 left 4+/5 Elbow: right 4/5 left 4+/5 Rehab Manager: right 85# left 75# Lateral Pinch: right 16# left 18# Tripod Pinch: right 8# left 8# Strength Comments: pt demo with right UE weakness Sensation Sensation Comments: pt states he has had tingling since his first stroke. In-Hand Manipulation Finger to Palm Translation: Mild - Right and Normal - Left Palm to Finger Translation: Moderate - Right and Normal - Left Quick DASH-Disab of Arm,Shoulder Hand Quick DASH Score: [phone] Goals Goal:: pt will demo fit2 testing equal to unaffected side or greater (25#) by d/c to return pt to his PLOF. pt will demo with blanket folder strength of 90# or greater to return to his PLOF by d/c. pt will demo a increase in lateral and tripod pinch by 4# or greater to return pt to his PLOF. Goal:: pt will demo a increase in FMS of right dominate hand to manipulate coins- and fasteners at IND level by d/c. Goal:: pt will report he his ALBERT with ADLS and performing 50% faster to return to his PLOF with ADLS by d.c. Rehabilitation General Assessment: pt demo with a generalized weakness- greater on right than left. Pt states due to weakness he is slower with getting his bathing and dressing completed. pt demo with a decrease in FMS as well limiting use of right hand with self care and grooming /feeding tasks. Pt would benefit from skilled OT services 2-3x week for 4 weeks to return pt to his PLOF. Today therapist ed. pt on POC. pt demo understanding and agree to POC. Rehabilitation Potential: Excellent Anticipated Interventions Anticipated Interventions: Strengthening, Ergonomic Education, Neuro Reeducation, ADL Training, Education re assistive Equipment, Education re Diagnosis and Home Program Visit Plan Frequency: 2-3x /Week Duration: 4 Weeks TEXT: Thank you for the opportunity to evaluate your patient. For Medicare and Medicare HMO plans, please review the plan of care and approve it. It will need to be FAXED BACK to us at [phone] for Medicare purposes. Please let me know if there are questions or concerns regarding this plan of care. Physician Signature: Date : 08/14/25 1545 CC: LOREN GILLETTE; No Primary Care Physician MK Signed For Medicare only, by signing this I certify the plan of care. Physicians Signature Date Normal [facility] CARDIAC RHYTHMon 08-08-[address] [facility] CBC,PLATELETSon 08-08-2025 Erythrocyte distribution width (RBC) [Ratio] 13.6 % 10.9 - 14.3 % [facility] Hematocrit (Bld) [Volume fraction] 43.3 % 39.6 - 48.8 % [facility] Hemoglobin (Bld) [Mass/Vol] 14.5 g/dL 13.4 - 16.8 g/dL [facility] Interpretation and review of laboratory results Abnormal [facility] MCH (RBC) [Entitic mass] 29.5 pg 26.1 - 33.[address] [facility] MCHC (RBC) [Mass/Vol] 33.5 g/dL 31.9 - 36.5 g/dL [facility] MCV (RBC) [Entitic vol] 88.0 fL 79.0 - 94.[address] [facility] Platelet mean volume (Bld) [Entitic vol] [facility] Comment on above: Not measured Platelets (Bld) [#/Vol] 70 10*3/uL Low 146 - 337 K/uL [facility] RBC (Bld) [#/Vol] 4.92 10*6/uL [facility] WBC (Bld) [#/Vol] 6.29 10*3/uL 3.73 - 10. 10 K/uL [facility] Hematocrit (Bld) [Volume fraction] 43.3 % Normal 39.6-48.[address] [facility] Comment on above: Performed By: #### H EP3B #### [facility] (DEFAULT) [address] [place] [address] Hemoglobin (Bld) [Mass/Vol] 14.5 g/dL Normal 13.4-16.[address] [facility] Comment on above: Performed By: #### H EP3B #### [facility] (DEFAULT) [address] [place] [address] 48509 MCV (RBC) [Entitic vol] 88.0 fL Normal 79.0-94.5 [facility] Comment on above: Performed By: #### H EP3B #### [facility] (DEFAULT) [address] [place] [address] 51458 Mean Cell Hgb 29.5 pg Normal 26.1-33.[address] [facility] Comment on above: Performed By: #### H EP3B #### [facility] (DEFAULT) [address] [place] [address] 45259 Mean Cell Hgb Conc 33.5 g/dL Normal 31.9-36.5 [facility] Comment on above: Performed By: #### H EP3B #### [facility] (DEFAULT) [address] [place] [address] 49261 Mean Platelet Volume Normal [facility] Comment on above: Result Comment: Not measured Performed By: #### H EP3B #### [facility] (DEFAULT) [address] [place] [address] 31667 Platelets (Bld) [#/Vol] 70 10*3/uL Low 146-337 [facility] Comment on above: Performed By: #### H EP3B #### [facility] (DEFAULT) [address] [place] [address] 28893 RBC (Bld) [#/Vol] 4.92 10*6/uL Normal 4.38-5.[address] [facility] Comment on above: Performed By: #### H EP3B #### [facility] (DEFAULT) [address] [place] [address] 67832 RBC Distribution 13.6 % Normal 10.9-14.3 [facility] Comment on above: Performed By: #### H EP3B #### [facility] (DEFAULT) [address] [place] [address] WBC (Bld) [#/Vol] 6.29 10*3/uL Normal 3.73-10.[address] [facility] Comment on above: Performed By: #### H EP3B #### [facility] (DEFAULT) [address] [place] [address] CHEM 7 (LYTES,BUN,CREA,GLUC) on 08-08-2025 Anion gap [Moles/Vol] 14 mmol/L 7 - 17 mmol/L [facility] Chloride [Moles/Vol] 107 mmol/L 98 - 10 8 mmol/L [facility] CO2 [Moles/Vol] 20 mmol/L Low 21 - 31 mmol/L [facility] Creatinine [Mass/Vol] 1.13 mg/dL 0.70 - 1.30 mg/dL [facility] eGFR, CKD-EPI, Male 71 - PINF [facility] Comment on above: Reported eGFR is bas ed on the CKD-EPI 2020 equation using creatinine, age, and sex. Glucose [Mass/Vol] 113 mg/dL 70 - 179 mg/dL [facility] Interpretation and review of laboratory results Abnormal [facility] Osmolality Calc [Osmolality] [address] [facility] Potassium [Moles/Vol] 4.2 mmol/L 3.5 - 5.0 mmol/L [facility] Comment on above: Specimen slightly he molyzed. Potassium results may be falsey elevated by more than 0.5 mmol/L. Consider recollection. Sodium [Moles/Vol] 137 mmol/L 135 - 145 mmol/L [facility] Urea nitrogen [Mass/Vol] 22 mg/dL 7 - 25 mg/dL [facility] Urea nitrogen/Creatinine [Mass ratio] 19 mg/mg [facility] Anion gap [Moles/Vol] 14 mmol/L Normal 7-17 [facility] Comment on above: Performed By: #### H EPCQP #### [facility] (DEFAULT) [address] [address] Chloride [Moles/Vol] 107 mmol/L Normal 98-[address] [facility] Comment on above: Performed By: #### H EPCQP #### [facility] (DEFAULT) [address] [place] [address]855 CO2 [Moles/Vol] 20 mmol/L Low 21-31 [facility] Comment on above: Performed By: #### H EPCQP #### [facility] (DEFAULT) [address] [address] Creatinine [Mass/Vol] 1.13 mg/dL Normal 0.70-1.30 [facility] Comment on above: Performed By: #### H EPCQP #### [facility] (DEFAULT) [address] [place] [address]641 GFR/1.73 sq M.predicted among non-blacks MDRD (S/P/Bld) [Vol rate/Area] 72 mL/min/{1.73_m2} Normal >=[address] [facility] Comment on above: Result Comment: Repo rted eGFR is based on the CKD-EPI 2020 equation using creatinine, age, and sex. Performed By: #### H EPCQP #### [facility] (DEFAULT) [address] [place] [address]702 Glucose [Mass/Vol] 113 mg/dL Normal Nonfastin -179 mg/dL; Fastin-[address] [facility] Comment on above: Performed By: #### H EPCQP #### [facility] (DEFAULT) [address] [place] [address]56 Osmolality [Osmolality] 292 mosm/kg Normal 278-[address] [facility] Comment on above: Performed By: #### H EPCQP #### [facility] (DEFAULT) [address] [place] [address] Potassium [Moles/Vol] 4.2 mmol/L Normal 3.5-5.0 [facility] Comment on above: Result Comment: Spec imen slightly hemolyzed. Potassium results may be falsey elevated by more than 0.5 mmol/L. Consider recollection. Performed By: #### H EPCQP #### [facility] (DEFAULT) [address] [place] [address]67 Sodium [Moles/Vol] 137 mmol/L Normal 135-145 [facility] Comment on above: Performed By: #### H EPCQP #### [facility] (DEFAULT) [address] [address] Urea nitrogen [Mass/Vol] 22 mg/dL Normal 7-[address] [facility] Comment on above: Performed By: #### H EPCQP #### [facility] (DEFAULT) [address] [address] Urea nitrogen/Creatinine [Mass ratio] 19 mg/mg Normal [facility] Comment on above: Performed By: #### H EPCQP #### [facility] (DEFAULT) [address] [place] [address]505 CBC,PLATELETSon 08-07-2025 Erythrocyte distribution width (RBC) [Ratio] 13.4 % 10.9 - 14.3 % [facility] Hematocrit (Bld) [Volume fraction] 41.5 % 39.6 - 48.8 % [facility] Hemoglobin (Bld) [Mass/Vol] 14.2 g/dL 13.4 - 16.8 g/dL [facility] Interpretation and review of laboratory results Abnormal [facility] MCH (RBC) [Entitic mass] 29.8 pg 26.1 - 33.[address] [facility] MCHC (RBC) [Mass/Vol] 34.2 g/dL 31.9 - 36.5 g/dL [facility] MCV (RBC) [Entitic vol] 87.2 fL 79.0 - 94.[address] [facility] Platelet mean volume (Bld) [Entitic vol] [facility] Comment on above: Not measured Platelets (Bld) [#/Vol] 68 10*3/uL Low 146 - 337 K/uL [facility] RBC (Bld) [#/Vol] 4.76 10*6/uL [facility] WBC (Bld) [#/Vol] 6.03 10*3/uL 3.73 - 10. 10 K/uL [facility] Hematocrit (Bld) [Volume fraction] 41.5 % Normal 39.6-48.[address] [facility] Comment on above: Performed By: #### H EPCQP #### [facility] (DEFAULT) [address] [address] Hemoglobin (Bld) [Mass/Vol] 14.2 g/dL Normal 13.4-16.[address] [facility] Comment on above: Performed By: #### H EPCQP #### [facility] (DEFAULT) [address] [address] MCV (RBC) [Entitic vol] 87.2 fL Normal 79.0-94.5 [facility] Comment on above: Performed By: #### H EPCQP #### [facility] (DEFAULT) [address] [address] Mean Cell Hgb 29.8 pg Normal 26.1-33.[address] [facility] Comment on above: Performed By: #### H EPCQP #### [facility] (DEFAULT) [address] [address] Mean Cell Hgb Conc 34.2 g/dL Normal 31.9-36.5 [facility] Comment on above: Performed By: #### H EPCQP #### [facility] (DEFAULT) [address] [address] Mean Platelet Volume Normal [facility] Comment on above: Result Comment: Not measured Performed By: #### H EPCQP #### [facility] (DEFAULT) [address] [place] [address] Platelets (Bld) [#/Vol] 68 10*3/uL Low 146-337 [facility] Comment on above: Performed By: #### H EPCQP #### [facility] (DEFAULT) [address] [place] [address]35 RBC (Bld) [#/Vol] 4.76 10*6/uL Normal 4.38-5.[address] [facility] Comment on above: Performed By: #### H EPCQP #### [facility] (DEFAULT) [address] [place] [address] 76343 RBC Distribution 13.4 % Normal 10.9-14.3 [facility] Comment on above: Performed By: #### H EPCQP #### [facility] (DEFAULT) [address] [place] [address] WBC (Bld) [#/Vol] 6.03 10*3/uL Normal 3.73-10.[address] [facility] Comment on above: Performed By: #### H EPCQP #### [facility] (DEFAULT) [address] [place] [address] CHEM 7 (LYTES,BUN,CREA,GLUC) Ordered By: Tay Vaca on 08-07-2025 Anion gap [Moles/Vol] [facility] Comment on above: Not Calculated Chloride [Moles/Vol] 106 mmol/L 98 - 10 8 mmol/L [facility] CO2 [Moles/Vol] 22 mmol/L 21 - 31 mmol/L [facility] Creatinine [Mass/Vol] 1.16 mg/dL 0.70 - 1.30 mg/dL [facility] eGFR, CKD-EPI, Male 70 - PINF [facility] Comment on above: Reported eGFR is bas ed on the CKD-EPI 2020 equation using creatinine, age, and sex. Glucose [Mass/Vol] 117 mg/dL 70 - 179 mg/dL [facility] Osmolality Calc [Osmolality] [facility] Comment on above: Not Calculated Potassium [Moles/Vol] [facility] Comment on above: Result unavailable d ue to significant interference from hemolyzed specimen. Sodium [Moles/Vol] 137 mmol/L 135 - 145 mmol/L [facility] Urea nitrogen [Mass/Vol] 23 mg/dL 7 - 25 mg/dL [facility] Urea nitrogen/Creatinine [Mass ratio] 20 mg/mg [facility] CHEM 7 (LYTES,BUN,CREA,GLUC) on 08-07-2025 Anion Gap Normal [facility] Comment on above: Result Comment: Not Calculated Performed By: #### C HM7 #### [facility] (DEFAULT) [address] [address] Chloride [Moles/Vol] 106 mmol/L Normal 98-[address] [facility] Comment on above: Performed By: #### C HM7 #### [facility] (DEFAULT) [address] [address] CO2 [Moles/Vol] 22 mmol/L Normal 21-31 [facility] Comment on above: Performed By: #### C HM7 #### [facility] (DEFAULT) [address] [address] Creatinine [Mass/Vol] 1.16 mg/dL Normal 0.70-1.30 [facility] Comment on above: Performed By: #### C HM7 #### [facility] (DEFAULT) [address] [address] GFR/1.73 sq M.predicted among non-blacks MDRD (S/P/Bld) [Vol rate/Area] 70 mL/min/{1.73_m2} Normal >=[address] [facility] Comment on above: Result Comment: Repo rted eGFR is based on the CKD-EPI 2020 equation using creatinine, age, and sex. Performed By: #### C HM7 #### [facility] (DEFAULT) [address] [address] Glucose [Mass/Vol] 117 mg/dL Normal Nonfastin -179 mg/dL; Fastin-[address] [facility] Comment on above: Performed By: #### C HM7 #### [facility] (DEFAULT) [address] [place] [address] Osmolality (Calculated) Normal [facility] Comment on above: Result Comment: Not Calculated Performed By: #### C HM7 #### [facility] (DEFAULT) [address] [place] [address] Potassium Normal [facility] Comment on above: Result Comment: Resu lt unavailable due to significant interference from hemolyzed specimen. Performed By: #### C HM7 #### [facility] (DEFAULT) [address] [place] [address] Sodium [Moles/Vol] 137 mmol/L Normal 135-145 [facility] Comment on above: Performed By: #### C HM7 #### [facility] (DEFAULT) [address] [place] [address] Urea nitrogen [Mass/Vol] 23 mg/dL Normal 7-[address] [facility] Comment on above: Performed By: #### C HM7 #### [facility] (DEFAULT) [address] [place] [address] Urea nitrogen/Creatinine [Mass ratio] 20 mg/mg Normal [facility] Comment on above: Performed By: #### C HM7 #### [facility] (DEFAULT) [address] [place] [address] CBC,PLATELETSon 08-06-2025 Erythrocyte distribution width (RBC) [Ratio] 13.2 % 10.9 - 14.3 % [facility] Hematocrit (Bld) [Volume fraction] 40.5 % 39.6 - 48.8 % [facility] Hemoglobin (Bld) [Mass/Vol] 13.7 g/dL 13.4 - 16.8 g/dL [facility] Interpretation and review of laboratory results Abnormal [facility] MCH (RBC) [Entitic mass] 29.8 pg 26.1 - 33.[address] [facility] MCHC (RBC) [Mass/Vol] 33.8 g/dL 31.9 - 36.5 g/dL [facility] MCV (RBC) [Entitic vol] 88.2 fL 79.0 - 94.[address] [facility] Platelet mean volume (Bld) [Entitic vol] [facility] Comment on above: Not measured Platelets (Bld) [#/Vol] 56 10*3/uL Low 146 - 337 K/uL [facility] RBC (Bld) [#/Vol] 4.59 10*6/uL [facility] WBC (Bld) [#/Vol] 6.06 10*3/uL 3.73 - 10. 10 K/uL [facility] Hematocrit (Bld) [Volume fraction] 40.5 % Normal 39.6-48.[address] [facility] Comment on above: Performed By: #### H EPCQP #### [facility] (DEFAULT) [address] [address] Hemoglobin (Bld) [Mass/Vol] 13.7 g/dL Normal 13.4-16.[address] [facility] Comment on above: Performed By: #### H EPCQP #### [facility] (DEFAULT) [address] [place] [address] MCV (RBC) [Entitic vol] 88.2 fL Normal 79.0-94.5 [facility] Comment on above: Performed By: #### H EPCQP #### [facility] (DEFAULT) [address] [place] [address]658 Mean Cell Hgb 29.8 pg Normal 26.1-33.[address] [facility] Comment on above: Performed By: #### H EPCQP #### [facility] (DEFAULT) [address] [place] [address] 63269 Mean Cell Hgb Conc 33.8 g/dL Normal 31.9-36.5 [facility] Comment on above: Performed By: #### H EPCQP #### [facility] (DEFAULT) [address] [place] [address] Mean Platelet Volume Normal [facility] Comment on above: Result Comment: Not measured Performed By: #### H EPCQP #### [facility] (DEFAULT) [address] [place] [address]908 Platelets (Bld) [#/Vol] 56 10*3/uL Low 146-337 [facility] Comment on above: Performed By: #### H EPCQP #### [facility] (DEFAULT) [address] [place] [address]26 RBC (Bld) [#/Vol] 4.59 10*6/uL Normal 4.38-5.[address] [facility] Comment on above: Performed By: #### H EPCQP #### [facility] (DEFAULT) [address] [place] [address]24 RBC Distribution 13.2 % Normal 10.9-14.3 [facility] Comment on above: Performed By: #### H EPCQP #### [facility] (DEFAULT) [address] [place] [address] WBC (Bld) [#/Vol] 6.06 10*3/uL Normal 3.73-10.[address] [facility] Comment on above: Performed By: #### H EPCQP #### [facility] (DEFAULT) [address] [place] [address] CHEM 7 (LYTES,BUN,CREA,GLUC) on 08-06-2025 Anion gap [Moles/Vol] 12 mmol/L 7 - 17 mmol/L [facility] Chloride [Moles/Vol] 108 mmol/L 98 - 10 8 mmol/L [facility] CO2 [Moles/Vol] 22 mmol/L 21 - 31 mmol/L [facility] Creatinine [Mass/Vol] 1.11 mg/dL 0.70 - 1.30 mg/dL [facility] eGFR, CKD-EPI, Male 73 - PINF [facility] Comment on above: Reported eGFR is bas ed on the CKD-EPI 2020 equation using creatinine, age, and sex. Glucose [Mass/Vol] 126 mg/dL 70 - 179 mg/dL [facility] Osmolality Calc [Osmolality] [address] [facility] Potassium [Moles/Vol] 4.1 mmol/L 3.5 - 5.0 mmol/L [facility] Sodium [Moles/Vol] 138 mmol/L 135 - 145 mmol/L [facility] Urea nitrogen [Mass/Vol] 21 mg/dL 7 - 25 mg/dL [facility] Urea nitrogen/Creatinine [Mass ratio] 19 mg/mg [facility] Anion gap [Moles/Vol] 12 mmol/L Normal 7-17 [facility] Comment on above: Performed By: #### H EP3B #### [facility] (DEFAULT) [address] [address] Chloride [Moles/Vol] 108 mmol/L Normal 98-[address] [facility] Comment on above: Performed By: #### H EP3B #### [facility] (DEFAULT) [address] [address] CO2 [Moles/Vol] 22 mmol/L Normal 21-31 [facility] Comment on above: Performed By: #### H EP3B #### [facility] (DEFAULT) [address] [address] Creatinine [Mass/Vol] 1.11 mg/dL Normal 0.70-1.30 [facility] Comment on above: Performed By: #### H EP3B #### [facility] (DEFAULT) [address] [address] GFR/1.73 sq M.predicted among non-blacks MDRD (S/P/Bld) [Vol rate/Area] 74 mL/min/{1.73_m2} Normal >=[address] [facility] Comment on above: Result Comment: Repo rted eGFR is based on the CKD-EPI 2020 equation using creatinine, age, and sex. Performed By: #### H EP3B #### [facility] (DEFAULT) [address] [place] [address] Glucose [Mass/Vol] 126 mg/dL Normal Nonfastin -179 mg/dL; Fastin-[address] [facility] Comment on above: Performed By: #### H EP3B #### [facility] (DEFAULT) [address] [place] [address] Osmolality [Osmolality] 294 mosm/kg Normal 278-[address] [facility] Comment on above: Performed By: #### H EP3B #### [facility] (DEFAULT) [address] [place] [address] Potassium [Moles/Vol] 4.1 mmol/L Normal 3.5-5.0 [facility] Comment on above: Performed By: #### H EP3B #### [facility] (DEFAULT) [address] [place] [address] Sodium [Moles/Vol] 138 mmol/L Normal 135-145 [facility] Comment on above: Performed By: #### H EP3B #### [facility] (DEFAULT) [address] [place] [address] Urea nitrogen [Mass/Vol] 21 mg/dL Normal 7-[address] [facility] Comment on above: Performed By: #### H EP3B #### [facility] (DEFAULT) [address] [place] [address] Urea nitrogen/Creatinine [Mass ratio] 19 mg/mg Normal [facility] Comment on above: Performed By: #### H EP3B #### [facility] (DEFAULT) [address] [place] [address] ECGOrdered By: Lisa conrad on 08-06-[address] [facility] Work Phone: HCV RNA KATHERINE+probe DL = 5 iU/ mL QnOrdered By: Sierra Carr on 08-06-2025 HCV RNA KATHERINE+probe Ql 6.52 [facility] Interpretation and review of laboratory results Abnormal [facility] This test was performed using a real time PCR assay. The dynamic range for this assay is 15-100,000,000 IU/mL (1.18-8.00 Log IU/mL). [facility] HEPATITIS C BY PCR, QUANTOrd ered By: Sierra Bruno on 08-06-2025 HCV RNA KATHERINE+probe DL = 5 iU/mL Qn [id number] [facility] HCV RNA KATHERINE+probe DL = 5 iU/mL Qn Detected Abnormal Not Detected [facility] CBC,PLATELETSon 08-05-2025 Erythrocyte distribution width (RBC) [Ratio] 13.2 % 10.9 - 14.3 % [facility] Hematocrit (Bld) [Volume fraction] 39.5 % Low 39.6 - 48.8 % [facility] Hemoglobin (Bld) [Mass/Vol] 13.4 g/dL 13.4 - 16.8 g/dL [facility] Interpretation and review of laboratory results Abnormal [facility] MCH (RBC) [Entitic mass] 29.5 pg 26.1 - 33.[address] [facility] MCHC (RBC) [Mass/Vol] 33.9 g/dL 31.9 - 36.5 g/dL [facility] MCV (RBC) [Entitic vol] 87.0 fL 79.0 - 94.[address] [facility] Platelet mean volume (Bld) [Entitic vol] [facility] Comment on above: Not measured Platelets (Bld) [#/Vol] 62 10*3/uL Low 146 - 337 K/uL [facility] RBC (Bld) [#/Vol] 4.54 10*6/uL [facility] WBC (Bld) [#/Vol] 7.32 10*3/uL 3.73 - 10. 10 K/uL [facility] Hematocrit (Bld) [Volume fraction] 39.5 % Low 39.6-48.[address] [facility] Comment on above: Performed By: #### H EPCQP #### [facility] (DEFAULT) [address] [place] [address] Hemoglobin (Bld) [Mass/Vol] 13.4 g/dL Normal 13.4-16.[address] [facility] Comment on above: Performed By: #### H EPCQP #### [facility] (DEFAULT) [address] [place] [address] MCV (RBC) [Entitic vol] 87.0 fL Normal 79.0-94.5 [facility] Comment on above: Performed By: #### H EPCQP #### [facility] (DEFAULT) [address] [place] [address] Mean Cell Hgb 29.5 pg Normal 26.1-33.[address] [facility] Comment on above: Performed By: #### H EPCQP #### [facility] (DEFAULT) [address] [place] [address] Mean Cell Hgb Conc 33.9 g/dL Normal 31.9-36.5 [facility] Comment on above: Performed By: #### H EPCQP #### [facility] (DEFAULT) [address] [place] [address] Mean Platelet Volume Normal [facility] Comment on above: Result Comment: Not measured Performed By: #### H EPCQP #### [facility] (DEFAULT) [address] [place] [address] Platelets (Bld) [#/Vol] 62 10*3/uL Low 146-337 [facility] Comment on above: Performed By: #### H EPCQP #### [facility] (DEFAULT) [address] [place] [address] RBC (Bld) [#/Vol] 4.54 10*6/uL Normal 4.38-5.[address] [facility] Comment on above: Performed By: #### H EPCQP #### [facility] (DEFAULT) [address] [place] [address] RBC Distribution 13.2 % Normal 10.9-14.3 [facility] Comment on above: Performed By: #### H EPCQP #### [facility] (DEFAULT) [address] [place] [address] WBC (Bld) [#/Vol] 7.32 10*3/uL Normal 3.73-10.[address] [facility] Comment on above: Performed By: #### H EPCQP #### [facility] (DEFAULT) [address] [place] [address] CHEM 7 (LYTES,BUN,CREA,GLUC) on 08-05-2025 Anion gap [Moles/Vol] 13 mmol/L 7 - 17 mmol/L [facility] Chloride [Moles/Vol] 108 mmol/L 98 - 10 8 mmol/L [facility] CO2 [Moles/Vol] 22 mmol/L 21 - 31 mmol/L [facility] Creatinine [Mass/Vol] 1.25 mg/dL 0.70 - 1.30 mg/dL [facility] eGFR, CKD-EPI, Male 63 - PINF [facility] Comment on above: Reported eGFR is bas ed on the CKD-EPI 2020 equation using creatinine, age, and sex. Glucose [Mass/Vol] 109 mg/dL 70 - 179 mg/dL [facility] Osmolality Calc [Osmolality] 294 [facility] Potassium [Moles/Vol] 3.8 mmol/L 3.5 - 5.0 mmol/L [facility] Sodium [Moles/Vol] 139 mmol/L 135 - 145 mmol/L [facility] Urea nitrogen [Mass/Vol] 22 mg/dL 7 - 25 mg/dL [facility] Urea nitrogen/Creatinine [Mass ratio] 18 mg/mg [facility] Anion gap [Moles/Vol] 13 mmol/L Normal 7-17 [facility] Comment on above: Performed By: #### KIRTI BLEVINS, IPB #### [facility] (DEFAULT) [address] [place] [address] Chloride [Moles/Vol] 108 mmol/L Normal 98-[address] [facility] Comment on above: Performed By: #### KIRTI BLEVINS, IPB #### [facility] (DEFAULT) [address] [place] [address] CO2 [Moles/Vol] 22 mmol/L Normal 21-31 [facility] Comment on above: Performed By: #### KIRTI BLEVINS, IPB #### [facility] (DEFAULT) [address] [place] [address] Creatinine [Mass/Vol] 1.25 mg/dL Normal 0.70-1.30 [facility] Comment on above: Performed By: #### KIRTI BLEVINS, IPB #### [facility] (DEFAULT) [address] [place] [address] GFR/1.73 sq M.predicted among non-blacks MDRD (S/P/Bld) [Vol rate/Area] 64 mL/min/{1.73_m2} Normal >=[address] [facility] Comment on above: Result Comment: Repo rted eGFR is based on the CKD-EPI 2020 equation using creatinine, age, and sex. Performed By: #### KIRTI BLEVINS, IPB #### [facility] (DEFAULT) [address] [place] [address] Glucose [Mass/Vol] 109 mg/dL Normal Nonfastin -179 mg/dL; Fastin-[address] [facility] Comment on above: Performed By: #### KIRTI BLEVINS, IPB #### [facility] (DEFAULT) [address] [place] [address] Osmolality [Osmolality] 294 mosm/kg Normal 278-[address] [facility] Comment on above: Performed By: #### Sarath COTA CHM7, IPB #### [facility] (DEFAULT) [address] [place] [address] Potassium [Moles/Vol] 3.8 mmol/L Normal 3.5-5.0 [facility] Comment on above: Performed By: #### Sarath COTA CHM7, IPB #### [facility] (DEFAULT) [address] [place] [address] Sodium [Moles/Vol] 139 mmol/L Normal 135-145 [facility] Comment on above: Performed By: #### Sarath COTA CHM7, IPB #### [facility] (DEFAULT) [address] [place] [address] Urea nitrogen [Mass/Vol] 22 mg/dL Normal 7-[address] [facility] Comment on above: Performed By: #### Sarath COTA CHMDinesh, IPB #### [facility] (DEFAULT) [address] [place] [address] Urea nitrogen/Creatinine [Mass ratio] 18 mg/mg Normal [facility] Comment on above: Performed By: #### Sarath COTA CHM7, IPB #### [facility] (DEFAULT) [address] [place] [address] FLEXIBLE ENDOSCOPIC EVALUATI ON OF SWALLOWINGon 08-05-2025 ROSS Henriquez 08/06/2025 7:55 AM Acute Care Speech-Language Pathology Flexible Endoscopic Evaluation of Swallowing (FEES) Clinical Recommendations Method of Nutrition: PO Intake: oral nutrition and hydration Medication Administration: Crushed, Whole in puree Recommended Diet Grade: dysphagia- soft and bite sized (IDDSI 6) Recommended Liquid Consistency: liquid- thin (IDDSI 0) Mealtime Strategies: Assist with tray set up Type of Cues/Supervision: 1:1 supervision, 1:1 assistance Oral Swallow Strategies: Bolus volume change (smaller quantity) Pharyngeal Swallow Strategies: Multiple swallows, Volitional cough/throat clear *Patient will cough in response to airway events which per FEES is protective and appears to eject material from the airway Therapy frequency recommendation(s) in acute: 3 times a week Inpatient Referrals: Flexible Endoscopic Evaluation of Swallowing (FEES) Discharge recommendations Location: Inpatient Rehab Facility Barriers to discharge home: Need for 1:1 assist to ensure safety with all PO intake, 1:1 assist needed for IADL's including medication management and finances Supporting factors for discharge setting: Impaired swallow function limiting nutritional status and safety with oral intake, Impaired cognitive skills limiting independence Pain General Pain Documentation (Adult, OB, Peds) Presence of Pain: denies pain/discomfort Presence of Pain Score (Auto-calculated): 0 Precautions Patient Safety Communication Prior to Visit: Nursing, Physician Lines/Tubes/Drains (Rehab Status): Telemetry, Arterial line Systems Review Onset of Illness/Injury or Surgery Date (BOAT RIGGER): 08/03/25 Communication Status: Verbal, Dysarthric Respiratory Status O2 Device: room air O2 Sat (%): 92 % Resp Rate: (!) 26 Acute BOAT RIGGER Outcomes Tracking Communicate basic wants and needs?: yes Demo insight/appreciation of deficits?: no Complete basic problem solving?: yes History of Present Illness: Esvin Guerrier Jr. is a 64 y.o. male with a past history of L basal ganglia ICH (2019), HTN, throat cancer, partially deaf, and hepatitis c who presented to OSH with c/o dizziness, N/V, evaluated for stroke alert with LKW 2400 08/02/25, reportedly non-adherence to anti-HTN medications. BP on presentation 220/116, CT H revealed a pontine hemorrhage and small R basal ganglia hyperdensity. 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 INTERVAL HISTORY SINCE ADMISSION 08/03/2025: admitted to NCCU, BP responded well to cardene from ED, BP 98/77 (84) on arrival to NCCU, weaning cardene to SBP <140. Medical History: Past Medical History[1] BOAT RIGGER History: FEES 2019: Pt p/w mild oropharyngeal dysphagia c/breduced bolus efficiency and impaired airway protection. Valleculae residue with puree suspected to be d/t reduced BoT retraction and reduced pharyngeal contraction. Postcricoid residue also overflowed into laryngeal vestibule after the swallow. Spontaneous f/u swallows cleared residue and penetration. Liquid wash was also effective to clear pharyngeal residue. Thin liquids observed in laryngeal vestibule after the swallow likely d/t reduced laryngeal elevation/excursion. Pt was sensate to penetration and spontaneous coughs and f/u swallows cleared penetration. No aspiration observed during this study. Recommend beginning a soft/bite sized diet with thin liquids.Will f/u x1 for ongoing assessment of diet tolerance but no anticipated dysphagia needs upon discharge. Will f/u to complete cognitive-linguistic eval. D/W pt, MD, and RN. Baseline method of nutrition: Oral nutrition/hydration Regular (IDDSI 7) Liquid - thin (IDDSI 0) Current method of nutrition: No current method of nutrition Clinical Reasons for Exam Patient Reported Dysphagia Symptoms: Yes Reason(s) for Exam: Acute dysphagia Subjective: Patient alert, resting in bed. Daughter present throughout Oral Mechanism Exam: Oral Mucosa Healthy appearing mucosa Oral Secretions Normal Dentition Edentulous Face: Sensory Function Equal sensation on forehead, cheeks and jaw Face: Motor Function Symmetrical at rest Mandible Functional bilateral symmetry, range of motion and perceived strength of masseter and temporal muscles Lips Symmetrical at rest and during movement Tongue Symmetrical, functional range of motion in all planes Soft Palate Uvula is midline Gag Response Did not test Neck and Shoulders Incomplete range of motion - left Cranial Nerve Impairments XI Spinal Accessory Nerve GRBAS: A perceptual rating scale for voice parameters, Ra (more content not included)... RADIOLOGY FLEXIBLE ENDOSCOPIC EVALUATI ON OF SWALLOWINGOrdered By: Unassigned Pacs on 08-05-[address] [facility] Work Phone: GLUCOSE POCon 08-05-2025 Glucose [Mass/Vol] 106 mg/dL 70 - 179 mg/dL [facility] POC Sample Type CAPBL [facility] Test performed at address of the patient encounter. [facility] Glucose [Mass/Vol] 160 mg/dL 70 - 179 mg/dL [facility] Glucose [Mass/Vol] 136 mg/dL 70 - 179 mg/dL [facility] Glucose [Mass/Vol] 115 mg/dL 70 - 179 mg/dL [facility] Glucose [Mass/Vol] 120 mg/dL 70 - 179 mg/dL [facility] Glucose [Mass/Vol] 132 mg/dL 70 - 179 mg/dL [facility] POC Sample Type CAPBL [facility] Test performed at address of the patient encounter. [facility] Glucose [Mass/Vol] 131 mg/dL 70 - 179 mg/dL [facility] POC Sample Type ARTER [facility] Test performed at address of the patient encounter. [facility] Glucose [Mass/Vol] 106 mg/dL 70 - 179 mg/dL [facility] POC Sample Type CAPBL [facility] Test performed at address of the patient encounter. [facility] HCV RNA KATHERINE+probe DL = 5 iU/ mL QnOrdered By: Halie Goodwin on 08-05-2025 HCV RNA KATHERINE+probe Ql 6.60 [facility] Interpretation and review of laboratory results Abnormal [facility] This test was performed using a real time PCR assay. The dynamic range for this assay is 15-100,000,000 IU/mL (1.18-8.00 Log IU/mL). [facility] HEPATITIS C BY PCR, QUANTOrd ered By: Halie Goodwin on 08-05-2025 HCV RNA KATHERINE+probe DL = 5 iU/mL Qn [id number] [facility] HCV RNA KATHERINE+probe DL = 5 iU/mL Qn Detected Abnormal Not Detected [facility] IONIZED CALCIUM, WHOLE BLOOD Ordered By: Vinod Hagen on 08-05-2025 Calcium.ionized (Bld) [Moles/Vol] 4.00 mg/dL Low 4.60 - 5.30 mg/dL [facility] Interpretation and review of laboratory results Abnormal [facility] IONIZED CALCIUM, WHOLE BLOOD on 08-05-2025 ICA 4.00 mg/dL Low 4.60-5.[address] [facility] Comment on above: Performed By: #### L [id number] #### [facility] (DEFAULT) [address] [place] [address] MAGNESIUMon 08-05-2025 Magnesium [Mass/Vol] 2.1 mg/dL 1.6 - 2 .6 mg/dL [facility] Magnesium [Mass/Vol] 2.1 mg/dL Normal 1.6-2.[address] [facility] Comment on above: Performed By: #### KIRTI BLEVINS, IPB #### [facility] (DEFAULT) [address] [place] [address] No Panel Informationon 08-05 [facility] performed at address of the patient encounter. [facility] Test performed at address of the patient encounter. [facility] Interpretation and review of laboratory results Normal [facility] PHOSPHATE, INORGANICon 08-05 Phosphate [Mass/Vol] 2.9 mg/dL 2.2 - 4 .6 mg/dL [facility] Phosphorous 2.9 mg/dL Normal 2.2-4.[address] [facility] Comment on above: Performed By: #### KIRTI BLEVINS, IPB #### [facility] (DEFAULT) [address] [place] [address]398 CBC,PLATELETSon 08-04-2025 Erythrocyte distribution width (RBC) [Ratio] 13.1 % 10.9 - 14.3 % [facility] Hematocrit (Bld) [Volume fraction] 40.6 % 39.6 - 48.8 % [facility] Hemoglobin (Bld) [Mass/Vol] 14.0 g/dL 13.4 - 16.8 g/dL [facility] Interpretation and review of laboratory results Abnormal [facility] MCH (RBC) [Entitic mass] 29.9 pg 26.1 - 33.[address] [facility] MCHC (RBC) [Mass/Vol] 34.5 g/dL 31.9 - 36.5 g/dL [facility] MCV (RBC) [Entitic vol] 86.6 fL 79.0 - 94.[address] [facility] Platelet mean volume (Bld) [Entitic vol] [facility] Comment on above: Not measured Platelets (Bld) [#/Vol] 60 10*3/uL Low 146 - 337 K/uL [facility] RBC (Bld) [#/Vol] 4.69 10*6/uL [facility] WBC (Bld) [#/Vol] 10.85 10*3/uL High 3.73 - 10 .10 K/uL [facility] Hematocrit (Bld) [Volume fraction] 40.6 % Normal 39.6-48.[address] [facility] Comment on above: Performed By: #### H [facility] [place] [place] #### [facility] (DEFAULT) [address] [address] Hemoglobin (Bld) [Mass/Vol] 14.0 g/dL Normal 13.4-16.[address] [facility] Comment on above: Performed By: #### H EMO #### [facility] (DEFAULT) [address] [place] [address]129 MCV (RBC) [Entitic vol] 86.6 fL Normal 79.0-94.5 [facility] Comment on above: Performed By: #### H EMO #### [facility] (DEFAULT) [address] [place] [address] 35634 Mean Cell Hgb 29.9 pg Normal 26.1-33.[address] [facility] Comment on above: Performed By: #### H EMOGC #### [facility] (DEFAULT) [address] [place] [address] 37322 Mean Cell Hgb Conc 34.5 g/dL Normal 31.9-36.5 [facility] Comment on above: Performed By: #### H EMOGC #### [facility] (DEFAULT) [address] [place] [address] 93359 Mean Platelet Volume Normal [facility] Comment on above: Result Comment: Not measured Performed By: #### H EMOGC #### [facility] (DEFAULT) [address] [place] [address] 59473 Platelets (Bld) [#/Vol] 60 10*3/uL Low 146-337 [facility] Comment on above: Performed By: #### H EMO #### [facility] (DEFAULT) [address] [place] [address] 32578 RBC (Bld) [#/Vol] 4.69 10*6/uL Normal 4.38-5.[address] [facility] Comment on above: Performed By: #### H EMO #### [facility] (DEFAULT) [address] [place] [address] 13120 RBC Distribution 13.1 % Normal 10.9-14.3 [facility] Comment on above: Performed By: #### H EMO #### [facility] (DEFAULT) [address] [place] [address] 66172 WBC (Bld) [#/Vol] 10.85 10*3/uL High 3.73-10.[address] [facility] Comment on above: Performed By: #### H EMOGC #### [facility] (DEFAULT) [address] [place] [address] 13694 CHEM 7 (LYTES,BUN,CREA,GLUC) on 08-04-2025 Anion gap [Moles/Vol] 13 mmol/L 7 - 17 mmol/L [facility] Chloride [Moles/Vol] 106 mmol/L 98 - 10 8 mmol/L [facility] CO2 [Moles/Vol] 24 mmol/L 21 - 31 mmol/L [facility] Creatinine [Mass/Vol] 1.27 mg/dL 0.70 - 1.30 mg/dL [facility] eGFR, CKD-EPI, Male 62 - PINF [facility] Comment on above: Reported eGFR is bas ed on the CKD-EPI 2020 equation using creatinine, age, and sex. Glucose [Mass/Vol] 114 mg/dL 70 - 179 mg/dL [facility] Interpretation and review of laboratory results Abnormal [facility] Osmolality Calc [Osmolality] [address] [facility] Potassium [Moles/Vol] 3.4 mmol/L Low 3.5 - 5.0 mmol/L [facility] Sodium [Moles/Vol] 140 mmol/L 135 - 145 mmol/L [facility] Urea nitrogen [Mass/Vol] 22 mg/dL 7 - 25 mg/dL [facility] Urea nitrogen/Creatinine [Mass ratio] 17 mg/mg [facility] Anion gap [Moles/Vol] 13 mmol/L Normal 7-17 [facility] Comment on above: Performed By: #### H EP3B #### [facility] (DEFAULT) [address] [address] Chloride [Moles/Vol] 106 mmol/L Normal 98-[address] [facility] Comment on above: Performed By: #### H EP3B #### [facility] (DEFAULT) [address] [address] CO2 [Moles/Vol] 24 mmol/L Normal 21-31 [facility] Comment on above: Performed By: #### H EP3B #### [facility] (DEFAULT) [address] [address] Creatinine [Mass/Vol] 1.27 mg/dL Normal 0.70-1.30 [facility] Comment on above: Performed By: #### H EP3B #### [facility] (DEFAULT) [address] [address] GFR/1.73 sq M.predicted among non-blacks MDRD (S/P/Bld) [Vol rate/Area] 63 mL/min/{1.73_m2} Normal >=[address] [facility] Comment on above: Result Comment: Repo rted eGFR is based on the CKD-EPI 2020 equation using creatinine, age, and sex. Performed By: #### H EP3B #### [facility] (DEFAULT) [address] [place] [address]71 Glucose [Mass/Vol] 114 mg/dL Normal Nonfastin -179 mg/dL; Fastin-[address] [facility] Comment on above: Performed By: #### H EP3B #### [facility] (DEFAULT) [address] [place] [address] 89689 Osmolality [Osmolality] 296 mosm/kg Normal 278-[address] [facility] Comment on above: Performed By: #### H EP3B #### [facility] (DEFAULT) [address] [place] [address] 65870 Potassium [Moles/Vol] 3.4 mmol/L Low 3.5-5.0 [facility] Comment on above: Performed By: #### H EP3B #### [facility] (DEFAULT) [address] [place] [address] Sodium [Moles/Vol] 140 mmol/L Normal 135-145 [facility] Comment on above: Performed By: #### H EP3B #### [facility] (DEFAULT) [address] [place] [id number] Urea nitrogen [Mass/Vol] 22 mg/dL Normal 7-[address] [facility] Comment on above: Performed By: #### H EP3B #### [facility] (DEFAULT) [address] [place] [address] Urea nitrogen/Creatinine [Mass ratio] 17 mg/mg Normal [facility] Comment on above: Performed By: #### H EP3B #### [facility] (DEFAULT) [address] [place] [address] HEAD WITHOUT CONTRASTon 0 08-04-2025 CT HEAD WITHOUT CONTRAST EXAM: CT HEAD WITHOUT CONTRAST, 08/04/2025 12:21 PM COMPARISON: CT HEAD WITHOUT CONTRAST August 03, 2025 CLINICAL INDICATIONS: 64 years Male dual energy, stability TECHNIQUE: A series of transaxial computerized tomographic images are obtained from base of skull to vertex without intravenous contrast. Axial whole-head and thin section posterior fossa slices are provided. Reformats: Sagittal and coronal. FINDINGS: Stable round hyperdensity in the dorsal left paramedian valentin measuring 7 mm (series 10 image 65). Stable tiny curvilinear hyperdensity along the lateral right putamen/external capsule. Both of these remain hyperdense on the virtual non-contrast images. Darden-white matter differentiation is preserved. No acute large territory infarction is seen. Patchy periventricular white matter hypoattenuation is noted which is non-specific, but likely due to chronic small vessel ischemic changes. Remote lacunar infarct in the posterior limb of the right internal capsule. Unchanged round hypodensity in the anterior limb of the left internal capsule, possibly remote infarct/insult. No significant mass effect or midline shift. Ventricular size is stable. No hydrocephalus. Skull appears intact. Partially visualized fixation hardware along the anterior mandible. Visualized orbits appear normal. Visualized paranasal sinuses are clear. Trace left mastoid effusion. Atherosclerotic calcifications of the major arteries at the skull base are noted. IMPRESSION: Stable hyperdense lesions in the posterior fossa and in the right basal ganglia, which do not suppress out with dual-energy technique. I personally viewed and interpreted these images and I have reviewed and approved this report. Normal [facility] CT Head WO contraston 2024 IMPRESSION: Stable hyperdense lesions in the posterior fossa and in the right basal ganglia, which do not suppress out with dual-energy technique. I personally viewed and interpreted these images and I have reviewed and approved this report. OLOGY EXAM: CT HEAD WITHOU T CONTRAST, 08/04/2025 12:21 PM COMPARISON: CT HEAD WITHOUT CONTRAST August 03, 2025 CLINICAL INDICATIONS: 64 years Male dual energy, stability TECHNIQUE: A series of transaxial computerized tomographic images are obtained from base of skull to vertex without intravenous contrast. Axial whole-head and thin section posterior fossa slices are provided. Reformats: Sagittal and coronal. FINDINGS: Stable round hyperdensity in the dorsal left paramedian valentin measuring 7 mm (series 10 image 65). Stable tiny curvilinear hyperdensity along the lateral right putamen/external capsule. Both of these remain hyperdense on the virtual non-contrast images. Darden-white matter differentiation is preserved. No acute large territory infarction is seen. Patchy periventricular white matter hypoattenuation is noted which is non-specific, but likely due to chronic small vessel ischemic changes. Remote lacunar infarct in the posterior limb of the right internal capsule. Unchanged round hypodensity in the anterior limb of the left internal capsule, possibly remote infarct/insult. No significant mass effect or midline shift. Ventricular size is stable. No hydrocephalus. Skull appears intact. Partially visualized fixation hardware along the anterior mandible. Visualized orbits appear normal. Visualized paranasal sinuses are clear. Trace left mastoid effusion. Atherosclerotic calcifications of the major arteries at the skull base are noted. RADIOLOGY Denis Hagen MD - 08/04/2025 EXAM: CT HEAD WITHOUT CONTRAST, 08/04/2025 12:21 PM COMPARISON: CT HEAD WITHOUT CONTRAST August 03, 2025 CLINICAL INDICATIONS: 64 years Male dual energy, stability TECHNIQUE: A series of transaxial computerized tomographic images are obtained from base of skull to vertex without intravenous contrast. Axial whole-head and thin section posterior fossa slices are provided. Reformats: Sagittal and coronal. FINDINGS: Stable round hyperdensity in the dorsal left paramedian valentin measuring 7 mm (series 10 image 65). Stable tiny curvilinear hyperdensity along the lateral right putamen/external capsule. Both of these remain hyperdense on the virtual non-contrast images. Darden-white matter differentiation is preserved. No acute large territory infarction is seen. Patchy periventricular white matter hypoattenuation is noted which is non-specific, but likely due to chronic small vessel ischemic changes. Remote lacunar infarct in the posterior limb of the right internal capsule. Unchanged round hypodensity in the anterior limb of the left internal capsule, possibly remote infarct/insult. No significant mass effect or midline shift. Ventricular size is stable. No hydrocephalus. Skull appears intact. Partially visualized fixation hardware along the anterior mandible. Visualized orbits appear normal. Visualized paranasal sinuses are clear. Trace left mastoid effusion. Atherosclerotic calcifications of the major arteries at the skull base are noted. IMPRESSION IMPRESSION: Stable hyperdense lesions in the posterior fossa and in the right basal ganglia, which do not suppress out with dual-energy technique. I personally viewed and interpreted these images and I have reviewed and approved this report. [facility] Radiology Study observation (narrative) [facility] CT Head WO contrastOrdered B y: Denis Hagen on 08-04-[address] [facility] Work Phone: Cardiac echo study Procedure Ordered By: Broderick Rankin on 08-04-2025 Ao ASC index 1.63 cm/m2 [facility] Work Phone: Ao peak ronnie 1.46 m/s [facility] Work Phone: Ao SOV index 1.72 cm/m2 [facility] Work Phone: Ao STJ index 1.44 cm/m2 [facility] Work Phone: [phone] Ao VTI 25.10 cm [facility] Work Phone: Ascending aorta 3.50 cm [facility] Work Phone: AV LVOT peak gradient [address] [facility] Work Phone: [facility]: AV peak gradient 9 mmHG [facility] Work Phone: [phone] AV valve area 3.08 cm2 [facility] Work Phone: [facility] Velocity Ratio 0.95 [facility]: MAGI (continuity Vmax) 2.[address] [facility] Work Phone: [phone] MAGI (continuity VTI) 3.[address] [facility] Work Phone: MAGI index (continuity Vmax) 1.25 m/s [facility] Work Phone: [phone] MAGI index (continuity VTI) 1.43 cm2/m2 [facility] Work Phone: [phone] Avg e' pk ronnie 0.10 m/s [facility] Work Phone: [phone] Avg E/e' ratio 9.39 [facility] Work Phone: [phone] Body surface area Derived from formula 2.15 m2 [facility] Work Phone: [phone] BP EF 62 % [facility] Work Phone: DI (Vmax) 0.[address] [facility] Work Phone: [phone] DI (VTI) 1.09 m/2 [facility] Work Phone: [phone] E wave decelartion time 206.00 msec [facility] Work Phone: e' lateral pk ronnie 0.1200 m/s [facility] Work Phone: [phone] e' lateral pk ronnie 0.12 m/s [facility] Work Phone: e' septal pk ronnie 0.0843 m/s [facility] Work [facility]: e' septal pk ronnie 0.08 m/s [facility] Work Phone: E/A ratio 0.[address] [facility] Work Phone: E/e' lateral ratio 7.75 [facility] Work Phone: E/e' septal ratio 11.03 [facility] Work Phone: EF SP 2CH 63 [facility] Work Phone: EF SP 4CH 59 [facility] Work Phone: EST RAP 5.00 mmHg [facility] Work Phone: [phone] FS 29 % [facility] Work Phone: [phone] IVC ostium 2.00 cm [facility] Work Phone: [phone] IVS 0.[address] [facility] Work Phone: [phone] LA ESV BP (MOD) 70 [facility] Work Phone: [phone] LA ESV BP (MOD) index 33 mL/m2 [facility] Work Phone: [phone] LA ESV SP 2CH (MOD) 91 mL [facility] Work Phone: [phone] LA ESV SP 4CH (MOD) 50 mL [facility] Work Phone: [phone] Long Strain -18.6 % [facility] Work Phone: [phone] LV EDV BP [address] [facility] Work Phone: [phone] LV EDV SP 2CH 73 mL [facility] Work Phone: [phone] LV EDV SP 4CH [address] [facility] Work Phone: [phone] LV ESV BP [address] [facility] Work Phone: [phone] LV ESV SP 2CH 27 mL [facility] Work Phone: [phone] LV ESV SP 4CH 38 mL [facility] Work Phone: [phone] LV mass 156.[address] [facility] Work Phone: [phone] LV Mass Index 73.0 g/m2 [facility] Work Phone: [phone] LV RWT 0.[address] [facility] Work Phone: [phone] LV stroke volume BP (ml) 53 mL [facility] Work Phone: [phone] LV stroke volume index BP 24.65 mL/m2 [facility] Work Phone: [phone] LVIDD 5.20 cm [facility] Work Phone: [phone] LVIDS 3.70 cm [facility] Work Phone: [phone] LVOT area 2.83 cm2 [facility] Work Phone: [phone] LVOT diameter 1.90 cm [facility] Work Phone: [phone] LVOT peak ronnie 1.38 m/s [facility] Work Phone: [phone] LVOT peak VTI 27.30 cm [facility] Work Phone: [phone] LVOT stroke volume 77 [facility]: [phone] LVOT stroke volume index 35.98 ml/m2 [facility] Work Phone: [phone] MV pk A ronnie 1.02 m/s [facility] Work Phone: [phone] MV pk E ronnie 0.93 m/s [facility] Work Phone: [phone] OSU AV VTI RATIO PRE STRESS 1.[address] [facility] Work Phone: [phone] OSU ECHO LV BIPLANE SYSTOLIC VOLUME INDEX 14.88 mL/m2 [facility] Work Phone: [phone] [facility] ECHO LV BP DIASTOLIC VOLUME INDEX 39.53 mL/m2 [facility] Work Phone: [phone] [facility] RVOT VTI RATIO 0.69 [facility] Work Phone: [phone] PV mean gradient 3 mmHg [facility] Work Phone: [phone] PV peak gradient 5 mmHg [facility] Work Phone: [phone] PV PK RONNIE 1.15 m/s [facility] Work Phone: [phone] PV VTI 21.60 cm [facility] Work Phone: [phone] PW 0.80 cm [facility] Work Phone: [phone] RA area 4CH (MOD) 12.90 cm2 [facility] Work Phone: RV Area diastolic 19.20 cm2 [facility] Work Phone: [phone] RV Area systolic 9.37 cm2 [facility] Work Phone: [phone] RV basal diam 4.00 cm [facility] Work Phone: RV Fractional area change 51.2 % [facility] Work Phone: [phone] RV long diam 7.40 cm [facility] Work Phone: [phone] RV mid diam 2.30 cm [facility] Work Phone: [phone] RV S' 11.60 cm/s [facility] Work Phone: RVOT peak gradient 3 mmHg [facility] Work Phone: RVOT peak ronnie 0.83 m/s [facility] Work Phone: RVOT peak VTI 14.80 cm [facility] Work Phone: [phone] Sinus 3.[address] [facility] Work Phone: STJ 3.[address] [facility] Work Phone: Stroke Volume 77 cm/mL [facility] Work Phone: Stroke volume index 36 [facility] Work Phone: TAPSE 1.91 cm [facility] Work Phone: [facility] Work Phone: Cardiac echo study Procedure on 08-04-2025 Fair to poor image quality. Left Ventricle: Chamber size is normal. Normal wall thickness. Normal global systolic function. Regional wall motion is normal. Ejection fraction is normal (65 - 70%). The magnitude of the left ventricular longitudinal strain is normal. Diastolic function is normal. Right Ventricle: Chamber size is normal. Systolic function is normal. No hemodynamically significant valve disease. Agitated saline contrast study is positive for a right to left shunt. Left Ventricle Chamber size is normal. Normal wall thickness. Normal global systolic function. Regional wall motion is normal. Ejection fraction is normal (65 - 70%). The magnitude of the left ventricular longitudinal strain is normal. Diastolic function is normal. Global longitudinal strain is -18.6%. Right Ventricle Chamber size is normal. Systolic function is normal. Left Atrium Chamber size is normal. Right Atrium Chamber size is normal. IVC/SVC The inferior vena cava is normal in size. Mitral Valve Normal appearing leaflets. Leaflet mobility is normal. No regurgitation. No valve stenosis. Tricuspid Valve Normal leaflets. Leaflet mobility is normal. Trace regurgitation. No stenosis. Aortic Valve Trileaflet valve. Leaflet sclerosis visualized. Leaflet mobility is normal. No regurgitation. No stenosis. Pulmonic Valve Pulmonic valve not well visualized. Pulmonic valve function not well visualized. No regurgitation. No stenosis. Pericardium No pericardial effusion. Septum The atrial septum is aneurysmal. Pulmonary Artery Pulmonary artery not well visualized. Aorta No dilation to extent seen. SOV: 3.70 cm. STJ: 3.10 cm. Ascendin.50 cm. Study Details A complete echocardiography study (including color flow Doppler, spectral Doppler, M-mode and agitated saline contrast) was performed. Overall study quality was fair. Imaging system used: [employer]. Indications Indications for study: stroke/tia. Wall Scoring Score Index: 1.00 The left ventricular wall motion is normal. [facility] Radiology Study observation (narrative) [facility] Chronic hepatitis differenti ation between hepatitis B and C virus panelOrdered By: Tennille Madden on 08-04-2025 HBV core IgG+IgM Ql (S) Negative Negative [facility] HBV surface Ab IA Ql (S) Negative Negative [facility] HBV surface Ag Ql (S) Negative Negative [facility] HCV Ab Ql (S) Positive Abnormal Negative [facility] Comment on above: A positive result in dicates immunity through past immunization or prior infection. Interpretation and review of laboratory results Abnormal [facility] ECHOCARDIOGRAMon 08-04-2025 Echocardiography ? Fair to poor image quality. ? Left Ventricle: Chamber size is normal. Normal wall thickness. Normal global systolic function. Regional wall motion is normal. Ejection fraction is normal (65 - 70%). The magnitude of the left ventricular longitudinal strain is normal. Diastolic function is normal. ? Right Ventricle: Chamber size is normal. Systolic function is normal. ? No hemodynamically significant valve disease. ? Agitated saline contrast study is positive for a right to left shunt. Table formatting from the original result was not included. Images from the original result were not included. [facility] Facility [facility] Patient Information Patient Name Esvin Guerrier Jr. Legal Sex Male Indication for Exam Priority: Routine Dx: Cerebrovascular accident (CVA), unspecified mechanism [I63.9 (ICD-10-CM)] Order Question Reason for Exam stroke Interpretation Summary Result History is available. ? Fair to poor image quality. ? Left Ventricle: Chamber size is normal. Normal wall thickness. Normal global systolic function. Regional wall motion is normal. Ejection fraction is normal (65 - 70%). The magnitude of the left ventricular longitudinal strain is normal. Diastolic function is normal. ? Right Ventricle: Chamber size is normal. Systolic function is normal. ? No hemodynamically significant valve disease. ? Agitated saline contrast study is positive for a right to left shunt. Findings Left Ventricle Chamber size is normal. Normal wall thickness. Normal global systolic function. Regional wall motion is normal. Ejection fraction is normal (65 - 70%). The magnitude of the left ventricular longitudinal strain is normal. Diastolic function is normal. Global longitudinal strain is -18.6%. Right Ventricle Chamber size is normal. Systolic function is normal. Left Atrium Chamber size is normal. Right Atrium Chamber size is normal. Septum The atrial septum is aneurysmal. Mitral Valve Normal appearing leaflets. Leaflet mobility is normal. No regurgitation. No valve stenosis. Aortic Valve Trileaflet valve. Leaflet sclerosis visualized. Leaflet mobility is normal. No regurgitation. No stenosis. Tricuspid Valve Normal leaflets. Leaflet mobility is normal. Trace regurgitation. No stenosis. Pulmonic Valve Pulmonic valve not well visualized. Pulmonic valve function not well visualized. No regurgitation. No stenosis. Aorta No dilation to extent seen. SOV: 3.70 cm. STJ: 3.10 cm. Ascendin.50 cm. Pericardium No pericardial effusion. IVC/SVC The inferior vena cava is normal in size. Pulmonary Artery Pulmonary artery not well visualized. Reading Providers Reading Role Read Date Broderick Rankin MD Echo [place] 08/04/2025 Wall Scoring Score Index: 1.00 The left ventricular wall motion is normal. Left Heart Measurements LV - Systole LVIDD 5.2 cm IVS 0.9 cm LVIDS 3.7 cm PW 0.8 cm LV RWT 0.31 LV Mass Index 73 g/m2 LV EDV BP 85 mL LV ESV BP 32 mL BP EF 62 % LV stroke volume BP (ml) 53 mL LV stroke volume index BP 24.65 mL/m2 Long Strain -18.6 % LV - Diastole MV pk E ronnie 0.93 m/s MV pk A ronnie 1.02 m/s E/A ratio 0.91 e' septal pk ronnie 0.08 m/s e' lateral pk ronnie 0.12 m/s Avg e' pk ronnie 0.1 m/s E/e' septal ratio 11.03 E/e' lateral ratio 7.75 Avg E/e' ratio 9.39 LV - HCM AV LVOT peak gradient 8 mmHg Left Atrium LA ESV SP 4CH (MOD) 50 mL LA ESV SP 2CH (MOD) 91 mL LA ESV BP (MOD) index 33 mL/m2 Right Heart Measurements RV - 2D RV basal diam 4 cm RV mid diam 2.3 cm RV long diam 7.4 cm RV Area diastolic 19.2 cm2 RV Area systolic 9.37 cm2 RV Fractional area change 51.2 % RV - Doppler TAPSE 1.91 cm RV S' 11.6 cm/s Right Atrium EST RAP 5 mmHg RA area 4CH (MOD) 12.9 cm2 Great Vessels Aortic Root - End Diastolic Sinus 3.7 cm STJ 3.1 cm Ascending aorta 3.5 cm Inferior Vena Cava IVC ostium 2 cm Doppler Measurements - Aortic Valve Stenosis LVOT diameter 1.9 cm LVOT area 2.83 cm2 LVOT peak ronnie 1.38 m/s LVOT peak VTI 27.3 cm Stroke Volume 77 cm/mL Stroke volume index 36 Ao peak ronnie 1.46 m/s Ao VTI 25.1 cm AV peak gradient 9 mmHG AV mean gradient 5 mmHg DI (VTI) 1.09 m/2 DI (Vmax) 0.95 MAGI (continuity Vmax) 2.68 cm2 MAGI index (continuity Vmax) 1.25 m/s MAGI (continuity VTI) 3.08 cm2 MAGI index (continuity VTI) 1.43 cm2/m2 LVOT stroke volume 77 cm3 LVOT stroke volume index 35.98 ml/m2 Doppler Measurements - Mitral Valve Stenosis MV pk E ronnie 0.93 m/s MV pk A ronnie 1.02 m/s E/A ratio 0.91 PISA-MS MV pk E ronnie 0.93 m/s Doppler Measurements - Tricuspid Valve Jluis (more content not included)... Normal [facility] GLUCOSE POCon 08-04-2025 Glucose [Mass/Vol] 136 mg/dL 70 - 179 mg/dL [facility] POC Sample Type CAPBL [facility] Test performed at address of the patient encounter. [facility] HEMOGLOBIN A1Con 08-04-2025 Average glucose Estimated from glycated hemoglobin (Bld) [Mass/Vol] 103 mg/dL [facility] HbA1c (Bld) [Mass fraction] 5.2 % 4.7 - 5.6 % [facility] HEPATITIS BATTERY, CHRONICon 08-04-2025 Hep B Core Ab,Total (IgG+IgM) Negative Normal Negative [facility] Comment on above: Order Comment: This order contains result documents that were not sent. The result might be incomplete. Performed By: #### H EP3B #### [facility] (DEFAULT) [address] [address] Hep B Surface Ab Negative Normal Negative [facility] Comment on above: Order Comment: This order contains result documents that were not sent. The result might be incomplete. Performed By: #### H EP3B #### [facility] (DEFAULT) [address] [address] Hepatitis B Surface Ag Negative Normal Negative [facility] Comment on above: Order Comment: This order contains result documents that were not sent. The result might be incomplete. Performed By: #### H EP3B #### [facility] (DEFAULT) [address] [address] Hepatitis C Antibody Positive Abnormal Negative [facility] Comment on above: Order Comment: This order contains result documents that were not sent. The result might be incomplete. Result Comment: A po sitive result indicates immunity through past immunization or prior infection. Performed By: #### H EP3B #### [facility] (DEFAULT) [address] [address] HEPATITIS C BY PCR, QUANTon 08-04-2025 Hepatitis C By Pcr, Quant. [id number] IU/mL High <[address] [facility] Comment on above: Order Comment: This order contains result documents that were not sent. The result might be incomplete. Performed By: #### H EP3B #### [facility] (DEFAULT) [address] [address] Hepatitis C By Pcr,(Log) 6.52 IU/mL High <1.[address] [facility] Comment on above: Order Comment: This order contains result documents that were not sent. The result might be incomplete. Performed By: #### H EP3B #### [facility] (DEFAULT) [address] [address] Hepatitis C Viral Load Interpretation Detected Abnormal Not Detected [facility] Comment on above: Order Comment: This order contains result documents that were not sent. The result might be incomplete. Performed By: #### H EP3B #### [facility] (DEFAULT) [address] [address] Hepatitis C By Pcr, Quant. [id number] IU/mL High <[address] [facility] Comment on above: Order Comment: This test was performed using a real time PCR assay.? The dynamic range for this assay is 15-100,000,000 IU/mL (1.18-8.00 Log IU/mL). Performed By: #### H EPCQP #### [facility] (DEFAULT) [address] [address] Hepatitis C By Pcr,(Log) 6.60 IU/mL High <1.[address] [facility] Comment on above: Order Comment: This test was performed using a real time PCR assay.? The dynamic range for this assay is 15-100,000,000 IU/mL (1.18-8.00 Log IU/mL). Performed By: #### H EPCQP #### [facility] (DEFAULT) [address] [address] Hepatitis C Viral Load Interpretation Detected Abnormal Not Detected [facility] Comment on above: Order Comment: This test was performed using a real time PCR assay.? The dynamic range for this assay is 15-100,000,000 IU/mL (1.18-8.00 Log IU/mL). Performed By: #### H EPCQP #### [facility] (DEFAULT) [address] [place] [address] HIV 1 AND 2 ANTIBODIES/P24 A NTIGENOrdered By: Frida Garibay on 08-04-2025 HIV 1+2 Ab+HIV1 p24 Ag IA Ql Non-Reactive Non Reactive [facility] Interpretation and review of laboratory results Normal [facility] HIV 1 AND 2 ANTIBODIES/P24 A NTIGENon 08-04-2025 HIV-1/HIV-2 Ab With p24 Antigen Non-Reactive Normal Non Reactive [facility] Comment on above: Performed By: #### L [id number] #### [facility] [facility] (DEFAULT) [address] [address] IONIZED CALCIUM, WHOLE BLOOD Ordered By: Gaby Orozco on 08-04-2025 Calcium.ionized (Bld) [Moles/Vol] 4.25 mg/dL Low 4.60 - 5.30 mg/dL [facility] Interpretation and review of laboratory results Abnormal [facility] IONIZED CALCIUM, WHOLE BLOOD on 08-04-2025 ICA 4.25 mg/dL Low 4.60-5.[address] [facility] Comment on above: Performed By: #### H EP3B #### [facility] (DEFAULT) [address] [place] [id number] MAGNESIUMon 08-04-2025 Magnesium [Mass/Vol] 1.8 mg/dL 1.6 - 2 .6 mg/dL [facility] Magnesium [Mass/Vol] 1.8 mg/dL Normal 1.6-2.[address] [facility] Comment on above: Performed By: #### H EP3B #### [facility] (DEFAULT) [address] [place] [address] MR Brain WO and W contrast I Von 08-04-2025 IMPRESSION: Small acute hematoma in the left dorsal hemipons. Additional tiny subacute hematoma in the right external capsule. Findings suggestive of chronic hypertensive angiopathy with numerous microhemorrhages throughout the basal ganglia, thalami and the posterior fossa. Evidence of remote hemorrhages in the basal ganglia and the right hemipons. Extensive white matter signal changes, likely sequelae of severe chronic small vessel ischemic disease. I personally viewed and interpreted these images and I have reviewed and approved this report. OLOGY EXAM: MRI BRAIN WITH AND WITHOUT CONTRAST, 08/04/2025 18:38 PM COMPARISON: CT head August 04, 2025, MR brain October 07, 2020. CLINICAL INDICATIONS: 64 years Male assess bleed TECHNIQUE: A series of multisequence, multiplanar images of the brain are obtained both before and after intravenous administration of gadolinium-based contrast using standard protocol. Study was performed at 1.5 Linda. CONTRAST: Gadopiclenol SOLN 1-25 mL; Route of Administration: Intravenous; Dose: 10 mL. FINDINGS: There is a T1 isointense, T2 hypointense focus in the left paramedian valentin measuring 5 mm correlates with hyperdense focus on comparison CT head study, most compatible with acute pontine hemorrhage. 2 to 3 mm intrinsic T1 hyperintense T2 isointense focus in the region of left frontal operculum (series 22 image 131) correlates with hyperdense focus on comparison study, likely early subacute hemorrhage. There are numerous chronic microhemorrhage throughout the bilateral cerebral hemispheres predominantly in signal distribution involving the basal ganglia, thalami as well as the posterior fossa likely related to chronic hypertensive angiopathy. Evidence of remote hemorrhages within the bilateral basal ganglia with hemosiderin in this region. Evidence of remote hemorrhage in the right hemipons. No suspicious intraparenchymal enhancement.. No diffusion restriction or evidence of acute infarct is identified. No abnormal enhancement. Extensive patchy periventricular white matter hypoattenuation is noted which is non-specific, but likely due to chronic small vessel ischemic changes. Remote infarct in the left purcell radiata. No extracerebral collection. Sellar and parasellar structures are unremarkable. Ventricles and sulci are enlarged, compatible with brain parenchymal volume loss. Small volume bilateral mastoid effusion. RADIOLOGY Latasha Welch MD - 08/04/2025 EXAM: MRI BRAIN WITH AND WITHOUT CONTRAST, 08/04/2025 18:38 PM COMPARISON: CT head August 04, 2025, MR brain October 07, 2020. CLINICAL INDICATIONS: 64 years Male assess bleed TECHNIQUE: A series of multisequence, multiplanar images of the brain are obtained both before and after intravenous administration of gadolinium-based contrast using standard protocol. Study was performed at 1.5 Linda. CONTRAST: Gadopiclenol SOLN 1-25 mL; Route of Administration: Intravenous; Dose: 10 mL. FINDINGS: There is a T1 isointense, T2 hypointense focus in the left paramedian valentin measuring 5 mm correlates with hyperdense focus on comparison CT head study, most compatible with acute pontine hemorrhage. 2 to 3 mm intrinsic T1 hyperintense T2 isointense focus in the region of left frontal operculum (series 22 image 131) correlates with hyperdense focus on comparison study, likely early subacute hemorrhage. There are numerous chronic microhemorrhage throughout the bilateral cerebral hemispheres predominantly in signal distribution involving the basal ganglia, thalami as well as the posterior fossa likely related to chronic hypertensive angiopathy. Evidence of remote hemorrhages within the bilateral basal ganglia with hemosiderin in this region. Evidence of remote hemorrhage in the right hemipons. No suspicious intraparenchymal enhancement.. No diffusion restriction or evidence of acute infarct is identified. No abnormal enhancement. Extensive patchy periventricular white matter hypoattenuation is noted which is non-specific, but likely due to chronic small vessel ischemic changes. Remote infarct in the left purcell radiata. No extracerebral collection. Sellar and parasellar structures are unremarkable. Ventricles and sulci are enlarged, compatible with brain parenchymal volume loss. Small volume bilateral mastoid effusion. IMPRESSION IMPRESSION: Small acute hematoma in the left dorsal hemipons. Additional tiny subacute hematoma in the right external capsule. Findings suggestive of chronic hypertensive angiopathy with numerous microhemorrhages throughout the basal ganglia, thalami and the posterior fossa. Evidence of remote hemorrhages in the basal ganglia and the right hemipons. Extensive white matter signal changes, likely sequelae of severe chronic small vessel ischemic disease. I personally viewed and interpreted these images and I have reviewed and approved this report. [facility] Radiology Study observation (narrative) [facility] MR Brain WO and W contrast I VOrdered By: Latasha Welch on 08-04-[address] [facility] Work Phone: MRI BRAIN WITH AND WITHOUT C ONTRASTon 08-04-2025 MRI BRAIN WITH AND WITHOUT CONTRAST EXAM: MRI BRAIN WITH AND WITHOUT CONTRAST, 08/04/2025 18:38 PM COMPARISON: CT head August 04, 2025, MR brain October 07, 2020. CLINICAL INDICATIONS: 64 years Male assess bleed TECHNIQUE: A series of multisequence, multiplanar images of the brain are obtained both before and after intravenous administration of gadolinium-based contrast using standard protocol. Study was performed at 1.5 Linda. CONTRAST: Gadopiclenol SOLN 1-25 mL; Route of Administration: Intravenous; Dose: 10 mL. FINDINGS: There is a T1 isointense, T2 hypointense focus in the left paramedian valentin measuring 5 mm correlates with hyperdense focus on comparison CT head study, most compatible with acute pontine hemorrhage. 2 to 3 mm intrinsic T1 hyperintense T2 isointense focus in the region of left frontal operculum (series 22 image 131) correlates with hyperdense focus on comparison study, likely early subacute hemorrhage. There are numerous chronic microhemorrhage throughout the bilateral cerebral hemispheres predominantly in signal distribution involving the basal ganglia, thalami as well as the posterior fossa likely related to chronic hypertensive angiopathy. Evidence of remote hemorrhages within the bilateral basal ganglia with hemosiderin in this region. Evidence of remote hemorrhage in the right hemipons. No suspicious intraparenchymal enhancement.. No diffusion restriction or evidence of acute infarct is identified. No abnormal enhancement. Extensive patchy periventricular white matter hypoattenuation is noted which is non-specific, but likely due to chronic small vessel ischemic changes. Remote infarct in the left purcell radiata. No extracerebral collection. Sellar and parasellar structures are unremarkable. Ventricles and sulci are enlarged, compatible with brain parenchymal volume loss. Small volume bilateral mastoid effusion. IMPRESSION: Small acute hematoma in the left dorsal hemipons. Additional tiny subacute hematoma in the right external capsule. Findings suggestive of chronic hypertensive angiopathy with numerous microhemorrhages throughout the basal ganglia, thalami and the posterior fossa. Evidence of remote hemorrhages in the basal ganglia and the right hemipons. Extensive white matter signal changes, likely sequelae of severe chronic small vessel ischemic disease. I personally viewed and interpreted these images and I have reviewed and approved this report. Normal [facility] No Panel Informationon 08-04 [facility] Interpretation and review of laboratory results Normal [facility] PHOSPHATE, INORGANICon 08-04 Phosphate [Mass/Vol] 2.8 mg/dL 2.2 - 4 .6 mg/dL [facility] Phosphorous 2.8 mg/dL Normal 2.2-4.[address] [facility] Comment on above: Performed By: #### H EP3B #### [facility] (DEFAULT) [address] [place] [address] PLATELET COUNTon 08-04-2025 Interpretation and review of laboratory results Abnormal [facility] Platelet mean volume (Bld) [Entitic vol] [facility] Comment on above: Not measured Platelets (Bld) [#/Vol] 68 10*3/uL Low 146 - 337 K/uL [facility] Mean Platelet Volume Normal [facility] Comment on above: Result Comment: Not measured Performed By: #### H EPCQP #### [facility] (DEFAULT) [address] [place] [address] Platelets (Bld) [#/Vol] 68 10*3/uL Low 146-337 [facility] Comment on above: Performed By: #### H EPCQP #### [facility] (DEFAULT) [address] [place] [address] Interpretation and review of laboratory results Abnormal [facility] Platelet mean volume (Bld) [Entitic vol] [facility] Comment on above: Not measured Platelets (Bld) [#/Vol] 59 10*3/uL Low 146 - 337 K/uL [facility] Mean Platelet Volume Normal [facility] Comment on above: Result Comment: Not measured Performed By: #### H EP3B #### [facility] (DEFAULT) [address] [place] [address] Platelets (Bld) [#/Vol] 59 10*3/uL Low 146-337 [facility] Comment on above: Performed By: #### H EP3B #### [facility] (DEFAULT) [address] [place] [address] PREPARE TO TRANSFUSE PLATELE Ton 08-04-2025 ABO/RH(D) TYPE Positive [facility] BLOOD COMPONENT TYPE Irradiated Leukoreduced Platelet Apheresis [facility] EXPIRATION DATE [id number] [facility] Product ABO/RH(D) Positive [facility] Product ABO/RH(D) NUMBER [address] [facility] PRODUCT CODE [id number] [facility] Unit Compatibility Not Required / Not Needed [facility] UNIT NUMBER [id number] [facility] UNIT STATUS transfused [facility] ABO/RH(D) TYPE Positive [facility] BLOOD COMPONENT TYPE Irradiated Leukoreduced Platelet Apheresis [facility] EXPIRATION DATE [facility] Product ABO/RH(D) Positive [facility] Product ABO/RH(D) NUMBER [address] [facility] PRODUCT CODE [id number] [facility] Unit Compatibility Not Required / Not Needed [facility] UNIT NUMBER [id number] [facility] UNIT STATUS transfused [facility] US ABDOMEN RUQ/LIVER/GBon US ABDOMEN RUQ/LIVER/GB EXAM: US ABDOMEN RUQ/LIVER/GB, 08/04/2025 14:44 PM CLINICAL INDICATIONS: hx of hep c, thrombocytopenia COMPARISON: None. TECHNIQUE: Real-time ultrasound evaluation of the right upper quadrant was performed utilizing a curved array transducer. Duplex scan is performed. Color flow images and spectral waveforms obtained. FINDINGS: Pancreas: The visualized pancreas is sonographically normal in appearance. Liver: The liver parenchyma is heterogeneous in echotexture with increased echogenicity. There is no evidence of an intrahepatic mass or biliary ductal dilation. Doppler ultrasound demonstrates hepatopetal flow in the main portal vein. Flow velocity is 43.0 cm/sec which is normal. Gall Bladder: The gallbladder is normally distended with no sludge or stones. Wall thickness is within normal limits. No pericholecystic fluid. The sonographic Farnsworth's sign was reported as negative. The common duct is normal in caliber measuring 5 mm in diameter. Right Kidney: Limited evaluation of the right kidney demonstrates no hydronephrosis. Bipolar length is 10.2 cm. Ascites: There is no ascites in the visualized abdomen. IMPRESSION: Heterogeneous increased echogenicity of the liver parenchyma which can be seen with steatosis/liver parenchymal disease. No suspicious hepatic lesions identified. I personally viewed and interpreted these images and I have reviewed and approved this report. Normal [facility] US Abdomen RUQon 08-04-2025 IMPRESSION: Heterogeneous increased echogenicity of the liver parenchyma which can be seen with steatosis/liver parenchymal disease. No suspicious hepatic lesions identified. I personally viewed and interpreted these images and I have reviewed and approved this report. OLOGY EXAM: US ABDOMEN RUQ/LIVER/GB, 08/04/2025 14:44 PM CLINICAL INDICATIONS: hx of hep c, thrombocytopenia COMPARISON: None. TECHNIQUE: Real-time ultrasound evaluation of the right upper quadrant was performed utilizing a curved array transducer. Duplex scan is performed. Color flow images and spectral waveforms obtained. FINDINGS: Pancreas: The visualized pancreas is sonographically normal in appearance. Liver: The liver parenchyma is heterogeneous in echotexture with increased echogenicity. There is no evidence of an intrahepatic mass or biliary ductal dilation. Doppler ultrasound demonstrates hepatopetal flow in the main portal vein. Flow velocity is 43.0 cm/sec which is normal. Gall Bladder: The gallbladder is normally distended with no sludge or stones. Wall thickness is within normal limits. No pericholecystic fluid. The sonographic Farnsworth's sign was reported as negative. The common duct is normal in caliber measuring 5 mm in diameter. Right Kidney: Limited evaluation of the right kidney demonstrates no hydronephrosis. Bipolar length is 10.2 cm. Ascites: There is no ascites in the visualized abdomen. RADIOLOGY Jose Ervin MD - 08/04/2025 EXAM: US ABDOMEN RUQ/LIVER/GB, 08/04/2025 14:44 PM CLINICAL INDICATIONS: hx of hep c, thrombocytopenia COMPARISON: None. TECHNIQUE: Real-time ultrasound evaluation of the right upper quadrant was performed utilizing a curved array transducer. Duplex scan is performed. Color flow images and spectral waveforms obtained. FINDINGS: Pancreas: The visualized pancreas is sonographically normal in appearance. Liver: The liver parenchyma is heterogeneous in echotexture with increased echogenicity. There is no evidence of an intrahepatic mass or biliary ductal dilation. Doppler ultrasound demonstrates hepatopetal flow in the main portal vein. Flow velocity is 43.0 cm/sec which is normal. Gall Bladder: The gallbladder is normally distended with no sludge or stones. Wall thickness is within normal limits. No pericholecystic fluid. The sonographic Farnsworth's sign was reported as negative. The common duct is normal in caliber measuring 5 mm in diameter. Right Kidney: Limited evaluation of the right kidney demonstrates no hydronephrosis. Bipolar length is 10.2 cm. Ascites: There is no ascites in the visualized abdomen. IMPRESSION IMPRESSION: Heterogeneous increased echogenicity of the liver parenchyma which can be seen with steatosis/liver parenchymal disease. No suspicious hepatic lesions identified. I personally viewed and interpreted these images and I have reviewed and approved this report. [facility] Radiology Study observation (narrative) [facility] US Abdomen RUQOrdered By: Samuel Ervin on 08-04-[address] [facility] Work Phone: *ARTERIAL LINEon 08-03-2025 CYNTHIA Colon 08/03/2025 4:03 PM *ARTERIAL LINE Procedure Date:: 08/03/2025 Start Time:: 14:50 EDT Performed by: CYNTHIA Marcelino Authorized by: CYNTHIA Marcelino Staff: Name of Copyright Clerk: CYNTHIA Colon Name of Copyright Clerk: Twan Cazares RN Consent Written consent obtained Consent given by: patient Risks and benefits were discussed. Risks discussed: arterial occlusion, bleeding, limb ischemia and limb loss Alternatives discussed: no treatment and delayed treatment Indications Indications: hemodynamic monitoring [place] Protocol The patient states understanding of procedure being performed. The patient's understanding of the procedure matches consent given Procedure consent matches procedure scheduled. Relevant documents present and verified: Yes Test results available and properly labeled: Yes Site marked: Yes Imaging studies available: Yes Required blood products, implants, devices, and special equipment available Patient identity confirmed: verbally with patient, arm band and hospital-assigned identification number Immediately prior to the procedure a timeout was called. Pre Procedure Details Hand hygiene used Landmarks identified Antiseptic used: skin prepped with ChloraPrep Skin prep agent completely dried prior to procedure Maximum sterile barriers were used: cap, mask, sterile gown, sterile gloves, and large sterile sheet Anesthesia Local anesthesia used: yes Local: local infiltration Local Anesthetic: 1% Lidocaine Anesthetic total: 2 mL Sedation Patient not sedated Procedure Details Location: Right radial artery Site selection rationale: strong pulse on doppler Patient Position: Lying in bed Placement Technique: Ultrasound guided Number of attempts: 2 Transducer: waveform confirmed Procedure stop date: 08/03/2025 Procedure stop time: 15:40 EDT Procedure Vital Signs Monitored Post Procedure Successful Placement?: Yes Ultrasound guidance on successful attempt: Yes Sterile ultrasound: Sterile ultrasound gel and probe cover used Imaging Saved?: No Preliminary ultrasound demonstrated a patent vascular access. Guidewire removal confirmed: Yes Line secured with suture. Dressing applied: Sterile Post Procedure Diagnosis: ICH Estimated Blood Loss: < 10 mL Disposition of Specimen: No specimen was removed Complications: Local hematoma Patient tolerance: Patient tolerated the procedure well with no immediate complications Post-procedure circulation, movement, sensation: Unchanged Additional Documentation Known chronic thrombocytopenia, 1 pool plts infusing at time of procedure with repeat plts following infusion. I performed the procedure myself [facility] Radiology Study observation (narrative) [facility] 12 Lead EKGon 08-03-2025 12 Lead EKG [facility] [address] [place] [address] 12 Lead EKG 08/03/25 0746 MR#: [id number] Acct: [id number] Name: ESVIN GUERRIER Rep #: [id number] : 1960 64 From: Tobin Marley MD Attending Dr: Status: DEP ER Ordering Dr: Lissette Ramos MD Date: 08/03/25 Location: ED Sex: M C Admitted: Test Reason : NEURO Blood Pressure : */* mmHG Vent. Rate : 58 BPM Atrial Rate : 58 BPM P-R Int : 152 ms QRS Dur : 98 ms QT Int : 512 ms P-R-T Axes : 25 39 76 degrees QTcB Int : 502 ms Sinus bradycardia Prolonged QT Abnormal ECG Confirmed by TOBIN MARLEY MD ([id number]), manager editorial PATRICIA DE LOS SANTOS ([id number]) on 08/04/2025 7:53:31 AM Referred By: Confirmed By: TOBIN MARLEY MD 08/04/25 0753 Date Tobin Marley MD CC: Dr. Lissette Ramos MD; No Primary Care Physician Signed Normal [facility] ALCOHOL (ETHANOL),BLOODOrder ed By: Ale Donato on 09-21-2025 Ethanol Ql (Bld) mg/dL NINF - 10 mg/dL [facility] Interpretation and review of laboratory results Normal [facility] ALCOHOL (ETHANOL),BLOODon Alcohol, Serum <10 Normal <[address] [facility] Comment on above: Performed By: #### H EPCQP #### [facility] (DEFAULT) [address] [place] [address] Absolute lymphocyte countOrd ered By: Lissette Ramos on 08-03-2025 Lymphocytes Auto (Unsp spec) [#/Vol] 2.64 10*3/uL 0.83-4.51 [facility] Absolute neutrophil countOrd ered By: Lissette Ramos on 08-03-2025 Neutrophils (Bld) [#/Vol] 3.8 10*3/uL 2.0-7.7 [facility] Activated partial thrombopla stin time (aPTT) in platelet poor plasma by coagulation aOrdered By: Lissette Ramos on 08-03-2025 aPTT Coag (PPP) [Time] 25.5 s 24.1-36.2 [facility] Anion gap in Serum or Plasma Ordered By: Lissette Ramos on 08-03-2025 Anion gap [Moles/Vol] 15 mmol/L 5-15 [facility] Automated lymphocyte count a s percentage of total leukocytesOrdered By: Lissette Ramos on 08-03-2025 Lymphocytes/100 WBC Auto (Unsp spec) 36.1 % 19-41 [facility] BUN/creatinine ratioOrdered By: Lisestte Ramos on 08-03-2025 Urea nitrogen/Creatinine [Mass ratio] 15.1 mg/mg 10-20 [facility] Basophil percentageOrdered B y: Lissette Ramos on 08-03-2025 Basophils/100 WBC (Bld) 0.3 % 0-1 W [facility] Bilirubin, totalOrdered By: Lissette Ramos on 08-03-2025 Bilirubin [Mass/Vol] 0.60 mg/dL 0.00-1.30 [facility] CBC AND ELECTRONIC DIFFon Basophils (Bld) [#/Vol] K/uL 0.00 - 0.09 K/uL [facility] Basophils/100 WBC (Bld) 0.3 % O [facility] Differential cell count method Nom (Bld) Electronic Differential [facility] Eosinophils (Bld) [#/Vol] K/uL 0.00 - 0.48 K/uL [facility] Eosinophils/100 WBC (Bld) 0.1 % [facility] Erythrocyte distribution width (RBC) [Ratio] 13.2 % 10.9 - 14.3 % [facility] Hematocrit (Bld) [Volume fraction] 43.2 % 39.6 - 48.8 % [facility] Hemoglobin (Bld) [Mass/Vol] 15.0 g/dL 13.4 - 16.8 g/dL [facility] Immature granulocytes (Bld) [#/Vol] 0.06 10*3/uL NINF - 0.07 K/uL [facility] Immature granulocytes/100 WBC (Bld) 0.6 % [facility] Interpretation and review of laboratory results Abnormal [facility] Lymphocytes (Bld) [#/Vol] 1.37 10*3/uL 0.83 - 3.57 K/uL [facility] Lymphocytes/100 WBC (Bld) 12.9 % [facility] MCH (RBC) [Entitic mass] 30.1 pg 26.1 - 33.[address] [facility] MCHC (RBC) [Mass/Vol] 34.7 g/dL 31.9 - 36.5 g/dL [facility] MCV (RBC) [Entitic vol] 86.6 fL 79.0 - 94.[address] [facility] Monocytes (Bld) [#/Vol] 0.71 10*3/uL 0.24 - 0.93 K/uL [facility] Monocytes/100 WBC (Bld) 6.7 % O [facility] Neutrophils (Bld) [#/Vol] 8.45 10*3/uL High 1.57 - 6.19 K/uL [facility] Nucleated RBC/100 WBC (Bld) [Ratio] 0.0 % NINF [facility] Platelet mean volume (Bld) [Entitic vol] [facility] Comment on above: Not measured Platelets (Bld) [#/Vol] 47 10*3/uL Low 146 - 337 K/uL [facility] RBC (Bld) [#/Vol] 4.99 10*6/uL [facility] Segmented neutrophils/100 WBC (Bld) 79.4 % [facility] WBC (Bld) [#/Vol] 10.63 10*3/uL High 3.73 - 10 .10 K/uL [facility] Abs Baso Auto < Normal 0.00-0.[address] [facility] Comment on above: Performed By: #### H EPCQP #### [facility] (DEFAULT) [address] [address] Abs Eos Auto < Normal 0.00-0.[address] [facility] Comment on above: Performed By: #### H EPCQP #### [facility] (DEFAULT) [address] [address] Basophils/100 WBC (Bld) 0.3 % Normal [facility] Comment on above: Performed By: #### H EPCQP #### [facility] (DEFAULT) [address] [address] DIFF STATUS Electronic Differential Normal [facility] Comment on above: Performed By: #### H EPCQP #### [facility] (DEFAULT) [address] [place] [address] Eosinophils/100 WBC (Bld) 0.1 % Normal [facility] Comment on above: Performed By: #### H EPCQP #### [facility] (DEFAULT) [address] [address] Hematocrit (Bld) [Volume fraction] 43.2 % Normal 39.6-48.[address] [facility] Comment on above: Performed By: #### H EPCQP #### [facility] (DEFAULT) [address] [place] [address] Hemoglobin (Bld) [Mass/Vol] 15.0 g/dL Normal 13.4-16.[address] [facility] Comment on above: Performed By: #### H EPCQP #### [facility] (DEFAULT) [address] [place] [address] Immature Grans % 0.6 % Normal [facility] Comment on above: Performed By: #### H EPCQP #### [facility] (DEFAULT) [address] [place] [address] Immature Grans Absolute 0.06 K/uL Normal <=0.07 [facility] Comment on above: Performed By: #### H EPCQP #### [facility] (DEFAULT) [address] [place] [address] Lymphocytes (Bld) [#/Vol] 1.37 10*3/uL Normal 0.83-3.[address] [facility] Comment on above: Performed By: #### H EPCQP #### [facility] (DEFAULT) [address] [place] [address] Lymphocytes/100 WBC (Bld) 12.9 % Normal [facility] Comment on above: Performed By: #### H EPCQP #### [facility] (DEFAULT) [address] [place] [address] MCV (RBC) [Entitic vol] 86.6 fL Normal 79.0-94.5 [facility] Comment on above: Performed By: #### H EPCQP #### [facility] (DEFAULT) [address] [place] [address]43 Mean Cell Hgb 30.1 pg Normal 26.1-33.[address] [facility] Comment on above: Performed By: #### H EPCQP #### [facility] (DEFAULT) [address] [place] [address] 33162 Mean Cell Hgb Conc 34.7 g/dL Normal 31.9-36.5 [facility] Comment on above: Performed By: #### H EPCQP #### [facility] (DEFAULT) [address] [address] Mean Platelet Volume Normal [facility] Comment on above: Result Comment: Not measured Performed By: #### H EPCQP #### [facility] (DEFAULT) [address] [place] [address] Monocytes (Bld) [#/Vol] 0.71 10*3/uL Normal 0.24-0.[address] [facility] Comment on above: Performed By: #### H EPCQP #### [facility] (DEFAULT) [address] [address] Monocytes/100 WBC (Bld) 6.7 % Normal [facility] Comment on above: Performed By: #### H EPCQP #### [facility] (DEFAULT) [address] [address] Nucleated RBC 0.0 /100 WBC Normal <=0.2 [facility] Comment on above: Performed By: #### H EPCQP #### [facility] (DEFAULT) [address] [place] [address]28 Platelets (Bld) [#/Vol] 47 10*3/uL Low 146-337 [facility] Comment on above: Performed By: #### H EPCQP #### [facility] (DEFAULT) [address] [address] RBC (Bld) [#/Vol] 4.99 10*6/uL Normal 4.38-5.[address] [facility] Comment on above: Performed By: #### H EPCQP #### [facility] (DEFAULT) [address] [address] RBC Distribution 13.2 % Normal 10.9-14.3 [facility] Comment on above: Performed By: #### H EPCQP #### [facility] (DEFAULT) [address] [place] [address] Segs + Bands Auto 79.4 % Normal [facility] Comment on above: Performed By: #### H EPCQP #### [facility] (DEFAULT) [address] [place] [address] Segs + Bands,Absolute Auto 8.45 K/uL High 1.57-6.[address] [facility] Comment on above: Performed By: #### H EPCQP #### [facility] (DEFAULT) [address] [place] [address]62 WBC (Bld) [#/Vol] 10.63 10*3/uL High 3.73-10.[address] [facility] Comment on above: Performed By: #### H EPCQP #### [facility] (DEFAULT) [address] [place] [address]71 CBC W/Diff, Automatedon 07-15 Absolute Lymph 2.64 X10 3/uL Normal 0.83-4.51 [facility] Comment on above: Performed By: #### L 500.4050, L100.0100, L300.3900, L300.4310, L501.4021 #### [facility] [address] [place], [address] Absolute Neut 3.8 X10 3/uL Normal 2.0-7.7 [facility] Comment on above: Performed By: #### L 500.4050, L100.0100, L300.3900, L300.4310, L501.4021 #### [facility] [address] [place], [address] Basophils/100 WBC (Bld) 0.3 % Normal 0-1 [facility] Comment on above: Performed By: #### L 500.4050, L100.0100, L300.3900, L300.4310, L501.4021 #### [facility] [address] [place], [address] Eosinophils/100 WBC (Bld) 0.8 % Normal 0-5 [facility] Comment on above: Performed By: #### L 500.4050, L100.0100, L300.3900, L300.4310, L501.4021 #### [facility] [address] [place], [address] Erythrocyte distribution width (RBC) [Ratio] 13.2 % Normal 11.6-14.6 [facility] Comment on above: Performed By: #### L 500.4050, L100.0100, L300.3900, L300.4310, L501.4021 #### [facility] [address] [place], [address] Hematocrit (Bld) [Volume fraction] 46.0 % Normal 40-54 [facility] Comment on above: Performed By: #### L 500.4050, L100.0100, L300.3900, L300.4310, L501.4021 #### [facility] [address] [place], [address] Hemoglobin (Bld) [Mass/Vol] 16.1 g/dL Normal 13.0-16.5 [facility] Comment on above: Performed By: #### L 500.4050, L100.0100, L300.3900, L300.4310, L501.4021 #### [facility] [address] [place], [address] IG% 1.000 High 0.0-0.9 [facility] Comment on above: Result Comment: IG% - Immature Granulocytes (promyelocytes, myelocytes and metamyelocytes) > 1% indicates that a LEFT SHIFT is Present. Performed By: #### L 500.4050, L100.0100, L300.3900, L300.4310, L501.4021 #### [facility] [address] [place], [address] Lymphocytes/100 WBC (Bld) 36.1 % Normal 19-41 [facility] Comment on above: Performed By: #### L 500.4050, L100.0100, L300.3900, L300.4310, L501.4021 #### [facility] [address] [place], [address] MCH (RBC) [Entitic mass] 30.7 pg Normal 27.0-32.0 [facility] Comment on above: Performed By: #### L 500.4050, L100.0100, L300.3900, L300.4310, L501.4021 #### [facility] [address] [place], [address] MCHC (RBC) [Mass/Vol] 35.0 g/dL Normal 32-36 [facility] Comment on above: Performed By: #### L 500.4050, L100.0100, L300.3900, L300.4310, L501.4021 #### [facility] [address] [place], [address] MCV (RBC) [Entitic vol] 87.6 fL Normal 80-94 [facility] Comment on above: Performed By: #### L 500.4050, L100.0100, L300.3900, L300.4310, L501.4021 #### [facility] [address] [place], [address] Monocytes/100 WBC (Bld) 9.7 % Normal 0-10 [facility] Comment on above: Performed By: #### L 500.4050, L100.0100, L300.3900, L300.4310, L501.4021 #### [facility] [address] [place], [address] Neutrophils/100 WBC (Bld) 52.1 % Normal 47-70 [facility] Comment on above: Performed By: #### L 500.4050, L100.0100, L300.3900, L300.4310, L501.4021 #### [facility] [address] [place], [address] Nucleated RBC (Bld) [#/Vol] 0 10*3/uL Normal 0-5 [facility] Comment on above: Performed By: #### L 500.4050, L100.0100, L300.3900, L300.4310, L501.4021 #### [facility] [address] [place], [address] Platelet mean volume (Bld) [Entitic vol] 13.7 fL High 6.2-12.0 [facility] Comment on above: Performed By: #### L 500.4050, L100.0100, L300.3900, L300.4310, L501.4021 #### [facility] [address] [place], [address] Platelets (Bld) [#/Vol] 54 10*3/uL Low 150-450 [facility] Comment on above: Performed By: #### L 500.4050, L100.0100, L300.3900, L300.4310, L501.4021 #### [facility] [address] [place], [address] RBC (Bld) [#/Vol] 5.25 10*6/uL Normal 4.6-6.2 [facility] Comment on above: Performed By: #### L 500.4050, L100.0100, L300.3900, L300.4310, L501.4021 #### [facility] [address] [place], [address] RDW SD 41.9 fl Normal 35.1-43.9 [facility] Comment on above: Performed By: #### L 500.4050, L100.0100, L300.3900, L300.4310, L501.4021 #### [facility] [address] [place], [address] WBC (Bld) [#/Vol] 7.3 10*3/uL Normal 4.4-11.0 [facility] Comment on above: Performed By: #### L 500.4050, L100.0100, L300.3900, L300.4310, L501.4021 #### [facility] [address] [place], [address] [facility] 7 - EDon 08-03-2025 Anion gap [Moles/Vol] 13 mmol/L 7 - 17 mmol/L [facility] Chloride [Moles/Vol] 102 mmol/L 98 - 10 8 mmol/L [facility] CO2 [Moles/Vol] 24 mmol/L 21 - 31 mmol/L [facility] Creatinine [Mass/Vol] 1.24 mg/dL 0.70 - 1.30 mg/dL [facility] eGFR, CKD-EPI, Male 64 - PINF [facility] Comment on above: Reported eGFR is bas ed on the CKD-EPI 2020 equation using creatinine, age, and sex. Glucose [Mass/Vol] 145 mg/dL 70 - 179 mg/dL [facility] Osmolality Calc [Osmolality] 290 [facility] Potassium [Moles/Vol] 4.3 mmol/L 3.5 - 5.0 mmol/L [facility] Comment on above: Specimen slightly he molyzed. Potassium results may be falsey elevated by more than 0.5 mmol/L. Consider recollection. Sodium [Moles/Vol] 135 mmol/L 135 - 145 mmol/L [facility] Urea nitrogen [Mass/Vol] 20 mg/dL 7 - 25 mg/dL [facility] Urea nitrogen/Creatinine [Mass ratio] 16 mg/mg [facility] Anion gap [Moles/Vol] 13 mmol/L Normal 7-17 [facility] Comment on above: Performed By: #### L [id number] #### [facility] (DEFAULT) [address] [place] [address] Chloride [Moles/Vol] 102 mmol/L Normal 98-[address] [facility] Comment on above: Performed By: #### L [id number] #### [facility] (DEFAULT) [address] [place] [address] CO2 [Moles/Vol] 24 mmol/L Normal 21-31 [facility] Comment on above: Performed By: #### L [id number] #### [facility] (DEFAULT) [address] [address] Creatinine [Mass/Vol] 1.24 mg/dL Normal 0.70-1.30 [facility] Comment on above: Performed By: #### L [id number] #### [facility] (DEFAULT) [address] [place] [address]67 GFR/1.73 sq M.predicted among non-blacks MDRD (S/P/Bld) [Vol rate/Area] 65 mL/min/{1.73_m2} Normal >=[address] [facility] Comment on above: Result Comment: Repo rted eGFR is based on the CKD-EPI 2020 equation using creatinine, age, and sex. Performed By: #### L [id number] #### [facility] (DEFAULT) [address] [place] [address] Glucose [Mass/Vol] 145 mg/dL Normal Nonfastin -179 mg/dL; Fastin-[address] [facility] Comment on above: Performed By: #### L [id number] #### [facility] (DEFAULT) [address] [place] [address] Osmolality [Osmolality] 290 mosm/kg Normal 278-[address] [facility] Comment on above: Performed By: #### L [id number] #### [facility] (DEFAULT) [address] [place] [address] Potassium [Moles/Vol] 4.3 mmol/L Normal 3.5-5.0 [facility] Comment on above: Result Comment: Spec imen slightly hemolyzed. Potassium results may be falsey elevated by more than 0.5 mmol/L. Consider recollection. Performed By: #### L [id number] #### [facility] (DEFAULT) [address] [place] [address] Sodium [Moles/Vol] 135 mmol/L Normal 135-145 [facility] Comment on above: Performed By: #### L [id number] #### [facility] (DEFAULT) [address] [address] Urea nitrogen [Mass/Vol] 20 mg/dL Normal 7-[address] [facility] Comment on above: Performed By: #### L [id number] #### [facility] (DEFAULT) [address] [address] Urea nitrogen/Creatinine [Mass ratio] 16 mg/mg Normal [facility] Comment on above: Performed By: #### L [id number] #### [facility] (DEFAULT) [address] [address] [address] HEAD WITHOUT CONTRASTon 0 08-03-2025 CT HEAD WITHOUT CONTRAST EXAM: CT HEAD WITHOUT CONTRAST, 08/03/2025 4:00 PM COMPARISON: CT STROKE HEAD-STROKE ALERT ONLY August 03, 2025 CLINICAL INDICATIONS: 64 years Male Stroke, hemorrhagic; Stroke, hemorrhagic RELEVANT CLINICAL HISTORY: Perform in 6 hours; TECHNIQUE: A series of transaxial computerized tomographic images are obtained from base of skull to vertex without intravenous contrast. Axial whole-head and thin section posterior fossa slices are provided. Reformats: Sagittal and coronal. FINDINGS: Stable rounded dense focus in the dorsal left paramedian valentin measuring 7 mm. Stable additional tiny hyperdensity along the lateral right putamen/external capsule. Darden-white matter differentiation is preserved. No acute large territory infarction. Patchy periventricular white matter hypoattenuation is noted which is non-specific, but likely due to chronic small vessel ischemic changes. Remote lacunar infarct in the posterior limb of the right internal capsule. Unchanged rounded hypodensity along the anterior limb of the left internal capsule, which could relate to remote infarct/insult. No significant mass effect or midline shift. Ventricles are stable in size and configuration. Skull appears intact. Remote fracture of the right lamina papyracea. Visualized orbits appear normal. Visualized paranasal sinuses are clear. Opacification of the left mastoid tip. Atherosclerotic calcifications of the internal carotid arteries at the skull base. IMPRESSION: Stable exam compared to the previous CT. Stable small hyperdensity in the dorsal left valentin and tiny hyperdensity along the lateral right putamen/external capsule. Normal [facility] CT Head WO contraston 2024 IMPRESSION: Stable exam compared to the previous CT. Stable small hyperdensity in the dorsal left valentin and tiny hyperdensity along the lateral right putamen/external capsule. OLOGY EXAM: CT HEAD WITHOU T CONTRAST, 08/03/2025 4:00 PM COMPARISON: CT STROKE HEAD-STROKE ALERT ONLY August 03, 2025 CLINICAL INDICATIONS: 64 years Male Stroke, hemorrhagic; Stroke, hemorrhagic RELEVANT CLINICAL HISTORY: Perform in 6 hours; TECHNIQUE: A series of transaxial computerized tomographic images are obtained from base of skull to vertex without intravenous contrast. Axial whole-head and thin section posterior fossa slices are provided. Reformats: Sagittal and coronal. FINDINGS: Stable rounded dense focus in the dorsal left paramedian valentin measuring 7 mm. Stable additional tiny hyperdensity along the lateral right putamen/external capsule. Darden-white matter differentiation is preserved. No acute large territory infarction. Patchy periventricular white matter hypoattenuation is noted which is non-specific, but likely due to chronic small vessel ischemic changes. Remote lacunar infarct in the posterior limb of the right internal capsule. Unchanged rounded hypodensity along the anterior limb of the left internal capsule, which could relate to remote infarct/insult. No significant mass effect or midline shift. Ventricles are stable in size and configuration. Skull appears intact. Remote fracture of the right lamina papyracea. Visualized orbits appear normal. Visualized paranasal sinuses are clear. Opacification of the left mastoid tip. Atherosclerotic calcifications of the internal carotid arteries at the skull base. RADIOLOGY [employer] M D - 08/03/2025 EXAM: CT HEAD WITHOUT CONTRAST, 08/03/2025 4:00 PM COMPARISON: CT STROKE HEAD-STROKE ALERT ONLY August 03, 2025 CLINICAL INDICATIONS: 64 years Male Stroke, hemorrhagic; Stroke, hemorrhagic RELEVANT CLINICAL HISTORY: Perform in 6 hours; TECHNIQUE: A series of transaxial computerized tomographic images are obtained from base of skull to vertex without intravenous contrast. Axial whole-head and thin section posterior fossa slices are provided. Reformats: Sagittal and coronal. FINDINGS: Stable rounded dense focus in the dorsal left paramedian valentin measuring 7 mm. Stable additional tiny hyperdensity along the lateral right putamen/external capsule. Darden-white matter differentiation is preserved. No acute large territory infarction. Patchy periventricular white matter hypoattenuation is noted which is non-specific, but likely due to chronic small vessel ischemic changes. Remote lacunar infarct in the posterior limb of the right internal capsule. Unchanged rounded hypodensity along the anterior limb of the left internal capsule, which could relate to remote infarct/insult. No significant mass effect or midline shift. Ventricles are stable in size and configuration. Skull appears intact. Remote fracture of the right lamina papyracea. Visualized orbits appear normal. Visualized paranasal sinuses are clear. Opacification of the left mastoid tip. Atherosclerotic calcifications of the internal carotid arteries at the skull base. IMPRESSION IMPRESSION: Stable exam compared to the previous CT. Stable small hyperdensity in the dorsal left valentin and tiny hyperdensity along the lateral right putamen/external capsule. [facility] Radiology Study observation (narrative) [facility] CT Head WO contrastOrdered B y: [employer] on 08-03-[address] [facility] Work Phone: CT Head and CT Brain for per fusion and CT angiogram Head vessels WO and W contrast Kayden 08-03-2025 IMPRESSION: 1. Atherosclerosis contribute to severe stenosis of the right ICA at the bifurcation as well as the origin of the left CCA. Additional mild-moderate atherosclerotic stenoses involving the more distal segments. Stable as compared to the prior exam. 2. 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 3. 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 4. Atherosclerosis contributes to stenosis of the vertebral arterial origins, severe on the right. Multifocal mild stenoses of the distal right vertebral artery due to atherosclerosis. Findings are unchanged from the prior exam. 5. Similar hyperdensities within the right basal ganglia and posterior valentin as described on same day CT head. I personally viewed and interpreted these images and I have reviewed and approved this report. OLOGY EXAM: CT STROKE LENORA O BRAIN/NECK, 08/03/2025 10:03 AM COMPARISON: CT STROKE HEAD-STROKE ALERT ONLY August 03, 2025, CT ANGIO BRAIN/NECK October 04, 2020 CLINICAL INDICATIONS: 64 years Male Suspected Stroke TECHNIQUE: A series of transaxial multislice computerized tomographic images are obtained with helical technique from top of aortic arch to vertex following bolus intravenous administration of nonionic contrast. Axial thin section source images, as well as sagittal and coronal thin section reformats, were provided at the scanner. Additional multiplanar and 3D reconstructions were provided. CONTRAST: iohexol (OMNIPAQUE) 350 MG/ML injection 1-171 mL; Route of Administration: Intravenous; Dose: 100 mL. FINDINGS: CT ANGIOGRAM NECK: AORTIC ARCH: Conventional anatomic origin of the great vessels. Atherosclerosis involving the great vessel origins is noted, without significant stenosis. RIGHT CAROTID ARTERY: Common carotid artery demonstrates atherosclerotic plaque, without significant stenosis. Internal carotid artery origin at the bifurcation demonstrates severe (>70%) stenosis due to atherosclerosis. More distal cervical segments of the internal carotid artery demonstrate moderate stenosis due to atherosclerosis (series 6 image 246). LEFT CAROTID ARTERY: Common carotid artery demonstrates severe stenosis due to atherosclerosis (series 6 image 409). Internal carotid artery origin at the bifurcation demonstrates moderate (50-69%) stenosis due to atherosclerosis. More distal cervical segments of the internal carotid artery demonstrate atherosclerotic plaque, without significant stenosis. RIGHT VERTEBRAL ARTERY: Origin demonstrates severe stenosis due to atherosclerosis. 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 This is likely chronic given the presence of prior occlusion on September 2020 CTA. More distal cervical segments demonstrate moderate stenosis due to atherosclerosis. Fusiform dilatation involving the proximal V3 segment (series 6 image 262) measuring up to 0.4 cm. LEFT VERTEBRAL ARTERY: Origin demonstrates moderate stenosis due to atherosclerosis. More distal cervical segments demonstrate atherosclerotic plaque, without significant stenosis. OTHER: No pseudoaneurysm. CT ANGIOGRAM HEAD: INTERNAL CAROTID ARTERIES: Atherosclerosis contributes to mild-moderate stenosis of the distal petrous ICAs. ANTERIOR CEREBRAL ARTERIES: Patent and normal in caliber. MIDDLE CEREBRAL ARTERIES: Patent and normal in caliber. POSTERIOR CEREBRAL ARTERIES: Patent and normal in caliber. VERTEBRAL ARTERIES: Atherosclerosis contribute to mild luminal irregularity of the bilateral V4 segments without significant stenosis.. BASILAR ARTERY: Patent. No significant stenosis. OTHER: No aneurysm or AVM. Similar hyperdensities within the right basal ganglia and posterior valentin. Remote left lacunar infarct. ADDITIONAL FINDINGS: LUNGS: Dependent bibasilar atelectasis. Osseous: No acute fracture or aggressive osseous lesions. Prior internal fixation of the anterior mandible. Degenerative changes throughout the cervical spine. RADIOLOGY Denis Bravo MD - 08/03/2025 EXAM: CT STROKE ANGIO BRAIN/NECK, 08/03/2025 10:03 AM COMPARISON: CT STROKE HEAD-STROKE ALERT ONLY August 03, 2025, CT ANGIO BRAIN/NECK October 04, 2020 CLINICAL INDICATIONS: 64 years Male Suspected Stroke TECHNIQUE: A series of transaxial multislice computerized tomographic images are obtained with helical technique from top of aortic arch to vertex following bolus intravenous administration of nonionic contrast. Axial thin section source images, as well as sagittal and coronal thin section reformats, were provided at the scanner. Additional multiplanar and 3D reconstructions were provided. CONTRAST: iohexol (OMNIPAQUE) 350 MG/ML injection 1-171 mL; Route of Administration: Intravenous; Dose: 100 mL. FINDINGS: CT ANGIOGRAM NECK: AORTIC ARCH: Conventional anatomic origin of the great vessels. Atherosclerosis involving the great vessel origins is noted, without significant stenosis. RIGHT CAROTID ARTERY: Common carotid artery demonstrates atherosclerotic plaque, without significant stenosis. Internal carotid artery origin at the bifurcation demonstrates severe (>70%) stenosis due to atherosclerosis. More distal cervical segments of the internal carotid artery demonstrate moderate stenosis due to atherosclerosis (series 6 image 246). LEFT CAROTID ARTERY: Common carotid artery demonstrates severe stenosis due to atherosclerosis (series 6 image 409). Internal carotid artery origin at the bifurcation demonstrates moderate (50-69%) stenosis due to atherosclerosis. More distal cervical segments of the internal carotid artery demonstrate atherosclerotic plaque, without significant stenosis. RIGHT VERTEBRAL ARTERY: Origin demonstrates severe stenosis due to atherosclerosis. 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 This is likely chronic given the presence of prior occlusion on September 2020 CTA. More distal cervical segments demonstrate moderate stenosis due to atherosclerosis. Fusiform dilatation involving the proximal V3 segment (series 6 image 262) measuring up to 0.4 cm. LEFT VERTEBRAL ARTERY: Origin demonstrates moderate stenosis due to atherosclerosis. More distal cervical segments demonstrate atherosclerotic plaque, without significant stenosis. OTHER: No pseudoaneurysm. CT ANGIOGRAM HEAD: INTERNAL CAROTID ARTERIES: Atherosclerosis contributes to mild-moderate stenosis of the distal petrous ICAs. ANTERIOR CEREBRAL ARTERIES: Patent and normal in caliber. MIDDLE CEREBRAL ARTERIES: Patent and normal in caliber. POSTERIOR CEREBRAL ARTERIES: Patent and normal in caliber. VERTEBRAL ARTERIES: Atherosclerosis contribute to mild luminal irregularity of the bilateral V4 segments without significant stenosis.. BASILAR ARTERY: Patent. No significant stenosis. OTHER: No aneurysm or AVM. Similar hyperdensities within the right basal ganglia and posterior valentin. Remote left lacunar infarct. ADDITIONAL FINDINGS: LUNGS: Dependent bibasilar atelectasis. Osseous: No acute fracture or aggressive osseous lesions. Prior internal fixation of the anterior mandible. Degenerative changes throughout the cervical spine. IMPRESSION IMPRESSION: 1. Atherosclerosis contribute to severe stenosis of the right ICA at the bifurcation as well as the origin of the left CCA. Additional mild-moderate atherosclerotic stenoses involving the more distal segments. Stable as compared to the prior exam. 2. 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 3. 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 4. Atherosclerosis contributes to stenosis of the vertebral arterial origins, severe on the right. Multifocal mild stenoses of the distal right vertebral artery due to atherosclerosis. Findings are unchanged from the prior exam. 5. Similar hyperdensities within the right basal ganglia and posterior valentin as described on same day CT head. I personally viewed and interpreted these images and I have reviewed and approved this report. [facility] Radiology Study observation (narrative) [facility] CT Head limitedon 08-03-2025 IMPRESSION: 1. Hyperdensities within the right basal ganglia and valentin are concerning for acute hemorrhage as reported at the outside hospital. However, given lack of access to the outside comparison images and the retention of dense intravascular contrast in the brain, cannot definitively rule out that these are enhancing lesions, given the patient's history of malignancy. 2. No significant edema or mass effect. No acute infarct or hydrocephalus. 3. Remote left lacunar infarct. Findings were discussed with Sasha Brown MD at 1004 on August 03, 2025. I personally viewed and interpreted these images and I have reviewed and approved this report. OLOGY EXAM: CT STROKE HEAD-STROKE ALERT ONLY, 08/03/2025 9:55 AM COMPARISON: CT HEAD WITHOUT CONTRAST October 05, 2020 CLINICAL INDICATIONS: 64 years Male Suspected Stroke; Suspected Stroke TECHNIQUE: A series of transaxial computerized tomographic images are obtained from base of skull to vertex without intravenous contrast. Axial whole-head and thin section posterior fossa slices are provided. Reformats: Sagittal and coronal. FINDINGS: Centered within the posterior left valentin, there is a rounded dense focus measuring up to 0.7 cm in diameter (series 2 image 12). There is additional focal hyperdensity along the lateral right putamen/external capsule (series 3 image 20). There is retained intravascular contrast throughout the brain. No significant edema or mass effect. No subarachnoid or intraventricular hemorrhage. Darden-white matter differentiation is preserved. No acute large territory infarction is seen. Remote left lacunar infarct. Extensive patchy periventricular white matter hypoattenuation is noted which is non-specific, but likely due to chronic small vessel ischemic changes. Ventricles are normal in size and configuration for patient age. Skull appears intact. Visualized orbits appear normal. Visualized paranasal sinuses are clear. Visualized mastoid air cells are clear. Atherosclerotic calcifications of the major arteries at the skull base are noted. RADIOLOGY Denis Bravo MD - 08/03/2025 EXAM: CT STROKE HEAD-STROKE ALERT ONLY, 08/03/2025 9:55 AM COMPARISON: CT HEAD WITHOUT CONTRAST October 05, 2020 CLINICAL INDICATIONS: 64 years Male Suspected Stroke; Suspected Stroke TECHNIQUE: A series of transaxial computerized tomographic images are obtained from base of skull to vertex without intravenous contrast. Axial whole-head and thin section posterior fossa slices are provided. Reformats: Sagittal and coronal. FINDINGS: Centered within the posterior left valentin, there is a rounded dense focus measuring up to 0.7 cm in diameter (series 2 image 12). There is additional focal hyperdensity along the lateral right putamen/external capsule (series 3 image 20). There is retained intravascular contrast throughout the brain. No significant edema or mass effect. No subarachnoid or intraventricular hemorrhage. Darden-white matter differentiation is preserved. No acute large territory infarction is seen. Remote left lacunar infarct. Extensive patchy periventricular white matter hypoattenuation is noted which is non-specific, but likely due to chronic small vessel ischemic changes. Ventricles are normal in size and configuration for patient age. Skull appears intact. Visualized orbits appear normal. Visualized paranasal sinuses are clear. Visualized mastoid air cells are clear. Atherosclerotic calcifications of the major arteries at the skull base are noted. IMPRESSION IMPRESSION: 1. Hyperdensities within the right basal ganglia and valentin are concerning for acute hemorrhage as reported at the outside hospital. However, given lack of access to the outside comparison images and the retention of dense intravascular contrast in the brain, cannot definitively rule out that these are enhancing lesions, given the patient's history of malignancy. 2. No significant edema or mass effect. No acute infarct or hydrocephalus. 3. Remote left lacunar infarct. Findings were discussed with Sasha Brown MD at 1004 on August 03, 2025. I personally viewed and interpreted these images and I have reviewed and approved this report. [facility] Radiology Study observation (narrative) [facility] CT Head limitedOrdered By: Mikala Bravo on 08-03-[address] [facility] Work Phone: CT STROKE ANGIO BRAIN/NECKon 08-03-2025 CT STROKE ANGIO BRAIN/NECK EXAM: CT STROKE ANGIO BRAIN/NECK, 08/03/2025 10:03 AM COMPARISON: CT STROKE HEAD-STROKE ALERT ONLY August 03, 2025, CT ANGIO BRAIN/NECK October 04, 2020 CLINICAL INDICATIONS: 64 years Male Suspected Stroke TECHNIQUE: A series of transaxial multislice computerized tomographic images are obtained with helical technique from top of aortic arch to vertex following bolus intravenous administration of nonionic contrast. Axial thin section source images, as well as sagittal and coronal thin section reformats, were provided at the scanner. Additional multiplanar and 3D reconstructions were provided. CONTRAST: iohexol (OMNIPAQUE) 350 MG/ML injection 1-171 mL; Route of Administration: Intravenous; Dose: 100 mL. FINDINGS: CT ANGIOGRAM NECK: AORTIC ARCH: Conventional anatomic origin of the great vessels. Atherosclerosis involving the great vessel origins is noted, without significant stenosis. RIGHT CAROTID ARTERY: Common carotid artery demonstrates atherosclerotic plaque, without significant stenosis. Internal carotid artery origin at the bifurcation demonstrates severe (>70%) stenosis due to atherosclerosis. More distal cervical segments of the internal carotid artery demonstrate moderate stenosis due to atherosclerosis (series 6 image 246). LEFT CAROTID ARTERY: Common carotid artery demonstrates severe stenosis due to atherosclerosis (series 6 image 409). Internal carotid artery origin at the bifurcation demonstrates moderate (50-69%) stenosis due to atherosclerosis. More distal cervical segments of the internal carotid artery demonstrate atherosclerotic plaque, without significant stenosis. RIGHT VERTEBRAL ARTERY: Origin demonstrates severe stenosis due to atherosclerosis. 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 This is likely chronic given the presence of prior occlusion on September 2020 CTA. More distal cervical segments demonstrate moderate stenosis due to atherosclerosis. Fusiform dilatation involving the proximal V3 segment (series 6 image 262) measuring up to 0.4 cm. LEFT VERTEBRAL ARTERY: Origin demonstrates moderate stenosis due to atherosclerosis. More distal cervical segments demonstrate atherosclerotic plaque, without significant stenosis. OTHER: No pseudoaneurysm. CT ANGIOGRAM HEAD: INTERNAL CAROTID ARTERIES: Atherosclerosis contributes to mild-moderate stenosis of the distal petrous ICAs. ANTERIOR CEREBRAL ARTERIES: Patent and normal in caliber. MIDDLE CEREBRAL ARTERIES: Patent and normal in caliber. POSTERIOR CEREBRAL ARTERIES: Patent and normal in caliber. VERTEBRAL ARTERIES: Atherosclerosis contribute to mild luminal irregularity of the bilateral V4 segments without significant stenosis.. BASILAR ARTERY: Patent. No significant stenosis. OTHER: No aneurysm or AVM. Similar hyperdensities within the right basal ganglia and posterior valentin. Remote left lacunar infarct. ADDITIONAL FINDINGS: LUNGS: Dependent bibasilar atelectasis. Osseous: No acute fracture or aggressive osseous lesions. Prior internal fixation of the anterior mandible. Degenerative changes throughout the cervical spine. IMPRESSION: 1. Atherosclerosis contribute to severe stenosis of the right ICA at the bifurcation as well as the origin of the left CCA. Additional mild-moderate atherosclerotic stenoses involving the more distal segments. Stable as compared to the prior exam. 2. 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 3. 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 4. Atherosclerosis contributes to stenosis of the vertebral arterial origins, severe on the right. Multifocal mild stenoses of the distal right vertebral artery due to atherosclerosis. Findings are unchanged from the prior exam. 5. Similar hyperdensities within the right basal ganglia and posterior valentin as described on same day CT head. I personally viewed and interpreted these images and I have reviewed and approved this report. Normal [facility] CT STROKE HEAD-STROKE ALERT ONLYon 08-03-2025 CT STROKE HEAD-STROKE ALERT ONLY EXAM: CT STROKE HEAD-STROKE ALERT ONLY, 08/03/2025 9:55 AM COMPARISON: CT HEAD WITHOUT CONTRAST October 05, 2020 CLINICAL INDICATIONS: 64 years Male Suspected Stroke; Suspected Stroke TECHNIQUE: A series of transaxial computerized tomographic images are obtained from base of skull to vertex without intravenous contrast. Axial whole-head and thin section posterior fossa slices are provided. Reformats: Sagittal and coronal. FINDINGS: Centered within the posterior left valentin, there is a rounded dense focus measuring up to 0.7 cm in diameter (series 2 image 12). There is additional focal hyperdensity along the lateral right putamen/external capsule (series 3 image 20). There is retained intravascular contrast throughout the brain. No significant edema or mass effect. No subarachnoid or intraventricular hemorrhage. Darden-white matter differentiation is preserved. No acute large territory infarction is seen. Remote left lacunar infarct. Extensive patchy periventricular white matter hypoattenuation is noted which is non-specific, but likely due to chronic small vessel ischemic changes. Ventricles are normal in size and configuration for patient age. Skull appears intact. Visualized orbits appear normal. Visualized paranasal sinuses are clear. Visualized mastoid air cells are clear. Atherosclerotic calcifications of the major arteries at the skull base are noted. IMPRESSION: 1. Hyperdensities within the right basal ganglia and valentin are concerning for acute hemorrhage as reported at the outside hospital. However, given lack of access to the outside comparison images and the retention of dense intravascular contrast in the brain, cannot definitively rule out that these are enhancing lesions, given the patient's history of malignancy. 2. No significant edema or mass effect. No acute infarct or hydrocephalus. 3. Remote left lacunar infarct. Findings were discussed with Sasha Brown MD at 1004 on August 03, 2025. I personally viewed and interpreted these images and I have reviewed and approved this report. Normal [facility] CTA Head AND Neck W/ Contras ton 08-03-2025 CTA Head AND Neck W/ Contrast [facility] Imaging Services [address] [place], [place] [id number] CTA Head AND Neck W/ Contrast MR#: [id number] Acct: [id number] Name: ESVIN GUERRIER Jr. Rep #: [id number] : 1960 M 64 From: Corazon Dyer MD PCP: Care Physician,No Primary Status: [facility] Study: CTA Head AND Neck W/ Contrast Date of Exam: Exam# [id number] Ordering Dr: Lissette Ramos MD PROCEDURE: CTA HEAD AND NECK W/ CONTRAST 08/03/2025 REASON FOR EXAM: STROKE TECHNIQUE: Procedure Code: CTCTA.HDNCK Modality: CT Procedure: CTA HEAD AND NECK W/ CONTRAST Multidetector CT angiography of the head and neck with intravenous contrast was performed with multiplaner and maximum intensity projection (MIP) reconstructions. CONTRAST: Isovue 370 VOLUME: 100 mL One or more dose reduction techniques were used (e.g., Automated exposure control, adjustment of the mA and/or kV according to patient size, use of iterative reconstruction technique). RADIATION DOSE SUMMARY: DLP: 752.72 mGycm COMPARISON: None available FINDINGS: CTA NECK: There is a standard three-vessel configuration of the aortic arch. Right carotid artery: Atheromatous plaque in the proximal right common carotid artery with a few punctate foci of calcifications. There are a few luminal irregularities at this region where there are areas of small outpouchings measuring up to 1.3 mm (axial image 180). Short-segment calcified atheromatous plaque in the right carotid bulb extending to the right internal carotid artery contributing to multifocal stenosis of the right cervical internal carotid artery including a 60-70% stenosis at the origin and 80-85% stenosis more distally. Left carotid artery: Intimal flap in the proximal left common carotid artery compatible with dissection (axial image 150). The adjacent filling defect likely reflect intramural thrombus contributing to 50-60% luminal stenosis. Atheromatous plaque in the carotid bulb extending to the internal carotid artery contributes to 60% focal stenosis at the origin of the left cervical internal carotid artery. Cervical vertebral arteries: Jqlmziln-[id number] multifocal stenosis of the proximal right cervical internal carotid artery. There is a focal dilatation of the right cervical carotid artery measuring up to 4 mm in diameter at the level of C2 (axial image 293). The left cervical carotid artery is patent without high-grade stenosis. Left dominant vertebral artery. The left internal jugular vein is non-opacified. Assessment for carotid stenosis is performed utilizing NASCET criteria. NASCET carotid stenosis criteria: 0% - none, 1-49% - mild, 50-69% - moderate, 70-89% - severe, 90-99% - critical. % ICA stenosis = (normal distal cervical ICA diameter - narrowest cervical ICA diameter / normal distal cervical ICA diameter) x 100. CTA Head: Atherosclerotic calcification of the carotid siphons without significant luminal narrowing. The petrous, cavernous, and intracranial internal carotid arteries are patent without high-grade stenosis. The proximal anterior cerebral arteries are patent without high-grade stenosis. The proximal middle cerebral arteries are patent without high-grade stenosis. The intradural vertebral arteries are patent without high-grade stenosis. The basilar artery is patent without high-grade stenosis. The proximal posterior cerebral arteries are patent without high-grade stenosis. No dominant intracranial aneurysm or high flow arteriovenous malformation is identified. Ancillary findings: Cervical spondylosis. Edentulous. CT/CTA Head AND Neck W/ Contrast IMPRESSION: 1. 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 Likely adjacent intramural thrombus contributing to 50-60% luminal stenosis. 2. Severe multifocal stenosis of the proximal right internal carotid artery secondary to atherosclerotic plaque. 3. Moderate focal stenosis at the origin of the left cervical internal carotid artery. 4. Fbqylqbp-es-fgztnr multifocal stenosis of the proximal right cervical internal carotid artery. 5. 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 6. Non-opacification of the left internal jugular vein concerning for underlying occlusion or thrombus. 7. No large vessel occlusion intracranially. The critical findings in the findings and impression above were relayed directly by Dr. Corazon Dyer by telephone to Dr. Lissette Ramos on 08/03/2025 at 8:22 am with readback verification. Reading Location: [facility] CC: Dr. 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: Signed Normal [facility] Carbon dioxide, total [Moles /volume] in Central venous bloodOrdered By: Lissette Ramos on 08-03-2025 CO2 [Moles/Vol] 24.2 mmol/L 21.0-32.0 [facility] Chloride assayOrdered By: Steven Ramos on 08-03-2025 Chloride [Moles/Vol] 101 mmol/L 98-108 [facility] Comprehensive Metabolic Prof ilon 08-03-2025 Albumin [Mass/Vol] 4.4 g/dL Normal 3.4-4.8 [facility] Comment on above: Performed By: #### L 500.4050, L100.0100, L300.3900, L300.4310, L501.4021 #### [facility] Laboratory [address] [place], [address] Albumin/Globulin [Mass ratio] 1.1 {ratio} Normal 0.9-2.4 [facility] Comment on above: Performed By: #### L 500.4050, L100.0100, L300.3900, L300.4310, L501.4021 #### [facility] [address] [place], [address] ALK PHOS 79 U/L Normal 40-129 [facility] Comment on above: Performed By: #### L 500.4050, L100.0100, L300.3900, L300.4310, L501.4021 #### [facility] [address] [place], [address] ALT [Catalytic activity/Vol] 44 U/L Normal <=46 [facility] Comment on above: Performed By: #### L 500.4050, L100.0100, L300.3900, L300.4310, L501.4021 #### [facility] [address] [place], [address] AST [Catalytic activity/Vol] 37 U/L Normal <=37 [facility] Comment on above: Performed By: #### L 500.4050, L100.0100, L300.3900, L300.4310, L501.4021 #### [facility] [address] [place], [address] Bilirubin [Mass/Vol] 0.60 mg/dL Normal 0.00-1.30 [facility] Comment on above: Performed By: #### L 500.4050, L100.0100, L300.3900, L300.4310, L501.4021 #### [facility] [address] [place], [address] BUN/CRE 15.1 RATIO Normal 10-20 [facility] Comment on above: Performed By: #### L 500.4050, L100.0100, L300.3900, L300.4310, L501.4021 #### [facility] [address] [place], [address] Calcium [Mass/Vol] 9.5 mg/dL Normal 7.6-11.0 [facility] Comment on above: Performed By: #### L 500.4050, L100.0100, L300.3900, L300.4310, L501.4021 #### [facility] [address] [place], [address] Chloride [Moles/Vol] 101 mmol/L Normal 98-108 [facility] Comment on above: Performed By: #### L 500.4050, L100.0100, L300.3900, L300.4310, L501.4021 #### [facility] [address] [place], [address] CO2 [Moles/Vol] 24.2 mmol/L Normal 21.0-32.0 [facility] Comment on above: Performed By: #### L 500.4050, L100.0100, L300.3900, L300.4310, L501.4021 #### [facility] [address] [place], [address] Creatinine [Mass/Vol] 1.34 mg/dL High 0.70-1.20 [facility] Comment on above: Performed By: #### L 500.4050, L100.0100, L300.3900, L300.4310, L501.4021 #### [facility] [address] [place], [address] ECRCL 66.17 ml/min Normal 50-250 [facility] Comment on above: Performed By: #### L 500.4050, L100.0100, L300.3900, L300.4310, L501.4021 #### [facility] [address] [place], [address] GAP 15 Normal 5-15 [facility] Comment on above: Performed By: #### L 500.4050, L100.0100, L300.3900, L300.4310, L501.4021 #### [facility] [address] [place], [address] GFR/1.73 sq M.predicted among non-blacks MDRD (S/P/Bld) [Vol rate/Area] 59 mL/min/{1.73_m2} Low >60 [facility] Comment on above: Result Comment: mL/m in/1.73m2 CKD-EPI Creatinine Equation (2020) Performed By: #### L 500.4050, L100.0100, L300.3900, L300.4310, L501.4021 #### [facility] [address] [place], [address] Globulin (S) [Mass/Vol] 4.0 g/dL Normal 2.2-4.2 [facility] Comment on above: Performed By: #### L 500.4050, L100.0100, L300.3900, L300.4310, L501.4021 #### [facility] [address] [place], [address] Glucose [Mass/Vol] 139 mg/dL High 70-99 [facility] Comment on above: Performed By: #### L 500.4050, L100.0100, L300.3900, L300.4310, L501.4021 #### [facility] [address] [place], [address] Potassium [Moles/Vol] 3.2 mmol/L Low 3.3-5.1 [facility] Comment on above: Performed By: #### L 500.4050, L100.0100, L300.3900, L300.4310, L501.4021 #### [facility] [address] [place], [address] Sodium [Moles/Vol] 140 mmol/L Normal 133-145 [facility] Comment on above: Performed By: #### L 500.4050, L100.0100, L300.3900, L300.4310, L501.4021 #### [facility] [address] [place], [address] T PROT 8.4 g/dL Normal 5.9-8.4 [facility] Comment on above: Performed By: #### L 500.4050, L100.0100, L300.3900, L300.4310, L501.4021 #### [facility] [address] [place], [address] Urea nitrogen [Mass/Vol] 20 mg/dL High 4-19 [facility] Comment on above: Performed By: #### L 500.4050, L100.0100, L300.3900, L300.4310, L501.4021 #### [facility] [address] [place], [address] Electrocardiogram reportOrde red By: Tobin Marlye on 08-03-2025 EKG study [facility] Cardiovascular Services [address] [place] [address] 12 Lead EKG 08/03/25 0746 MR#: [id number] Acct: [id number] Name: ESVIN GUERRIER Jr. Rep #:[id number] : 1960 64 From: Tobin Marley MD Attending Dr: Status: DEP E R Ordering Dr: Lissette Ramos MD Date: Location: ED Sex: M C Admitted: Test Reason : NEURO Blood Pressure : */* mmHG Vent. Rate : 58 BPM Atrial Rate : 58 BPM P-R Int : 152 ms QRS Dur : 98 ms QT Int : 512 ms P-R-T Axes : 25 39 76 degrees QTcB Int : 502 ms Sinus bradycardia Prolonged QT Abnormal ECG Confirmed by TOBIN MARLEY MD ([id number]), manager editorial PATRICIA DE LOS SANTOS ([id number]) on 08/04/2025 7:53:31 AM Referred By: Confirmed By: TOBIN MARLEY MD 08/04/25 0753 Date _ Tobin Marley MD CC: Dr. Lissette Ramos MD; No Primary Care Physician ~ Signed [facility] Other Phone: Emergency Department Summary on 08-03-2025 Emergency Department Summary [facility] Medical Records Department [address] [place] [address] Emergency Department Summary 08/03/25 MR#: [id number] Acct: [id number] Name: ESVIN GUERRIER Jr. Rep #: [id number] : 1960 64 From: Lissette Ramos MD PCP: Care Physician,No Primary Status:DEP ER Location: ED HPI History of Present Illness Chief Complaint: Stroke Alert Narrative Narrative: Patient is a 64-year-old male presenting to the emergency department as a stroke alert. Patient has a past medical history of GI bleed, hypertensive urgency, hypertension noncompliant with medications, hepatitis C and remote history of throat cancer in remission. Patient per family did not take his blood pressure medication. Patient is hard of hearing, but can read lips. Primary history is obtained from family after evaluation of patient in the ambulance bay. They report that he has been feeling unwell the past few days. On further questioning of this, they state he has been tired. Went to bed around 11 PM, LKW. This morning when he woke up around 7 AM he was complaining of vomiting and his bed was soaked with sweat per family. This is why EMS was called. Patient denies headache, vision changes, numbness or weakness in his extremities, neck pain, chest pain, shortness of breath, abdominal pain. Not on any OAC. EMS gave 10 mg labetalol about 10 minutes prior to arrival. Prior similar symptoms: Yes PFSH PFSH Medical History Wears dentures Depression Bipolar disorder Alcohol use Difficulty swallowing Gastric reflux Shortness of breath on exertion Smoker Thrombocytopenia Peripheral neuropathy Fractures Neck fracture Throat cancer CVA (cerebral vascular accident) Hypertension Home Medications ???Medication ???Instructions ???Recorded ???Last Taken ???Type sildenafil 50 mg tablet (Viagra) 50 mg PO DAILY PRN erectile Unknown History dysfunction amlodipine 10 mg tablet 10 mg PO DAILY #30 tabs 1024 U nknown Rx lisinopril 40 mg tablet 40 mg PO DAILY #30 tabs 1024 U nknown Rx Allergy/AdvReac Type Severity Reaction Status Date / Time No Known Allergies Allergy Verified 08/03/25 08:12 Family History Grandmother Hypertension maternal Grandfather Hypertension [...] substance use type: marijuana ROS ROS ED ROS Narrative see HPI EXAM Physical Exam Narrative Exam Narrative: Vital signs: Reviewed General: Alert and orientedx3. No acute distress HEENT: Head is normocephalic and atraumatic, sinuses nontender, pupils equal round and reactive. Nares are patent. Oropharynx and throat exams normal. Neck: Supple without lymphadenopathy nontender Cardiovascular: Regular rate and rhythm, no murmurs. No rubs or gallops. Normal S1 and S2 Respiratory: Clear to auscultation bilaterally. No wheezes, rales, rhonchi Abdominal: Soft and nontender. Normal bowel sounds. No guarding or rebound. Nonsurgical abdomen Extremities: No tenderness. No bruising. Normal range of motion. Normal sensation. Skin: No rash or redness. The rest of the physical exam is unremarkable Const Vital Signs: 08/03/25 07:09 08/03/25 07:19 08/03/25 07:20 Temperature 97.8 F Temperature Source Temporal Pulse Rate Respiratory Rate Blood Pressure 230/118 H Blood Pressure Mean 155 Pulse Ox Oxygen Delivery Method Room Air 08/03/25 07:28 08/03/25 07:42 08/03/25 07:46 Temperature Temperature Source Pulse Rate 59 L 57 L 60 Respiratory Rate 21 H 15 Blood Pressure 217/112 H 220/118 H 214/118 H Blood Pressure Mean 147 152 150 Pulse Ox 99 98 Oxygen Delivery Method 08/03/25 07:51 08/03/25 07:52 08/03/25 08:05 Temperature 97.4 F L Temperature Source Pulse Rate 60 58 L Respiratory Rate 18 19 H Blood Pressure 214/118 H 186/103 H Blood Pressure Mean 150 130 Pulse Ox 100 99 Oxygen Delivery Method Room Air 08/03/25 08:10 08/03/25 08:16 Temperature Temperature Source Pulse Rate 62 64 Respiratory Rate 17 16 Blood Pressure 180/98 H 186/96 H Blood Pressure Mean 125 126 Pulse Ox 98 Oxygen Delivery Method MDM MDM MDM Narrative Medical decision making narrative: Patient is a 64-year-old male presenting to the emergency department a (more content not included)... Normal [facility] Eosinophil percentageOrdered By: Lissette Ramos on 08-03-2025 Eosinophils/100 WBC (Bld) 0.8 % 0-5 [facility] Erythrocyte distribution wid th ratioOrdered By: Lissette Ramos on 08-03-2025 Erythrocyte distribution width (RBC) [Ratio] 13.2 % 11.6-14.6 [facility] Erythrocyte distribution wid th standard deviationOrdered By: Lissette Ramos on 08-03-2025 Erythrocyte distribution width (RBC) [Ratio] 41.9 fl 35.1-43.9 [facility] Glomerular filtration rate ( GFR) estimation/1.73 sq m using serum, plasma, or whole bOrdered By: Lissette Ramos on 08-03-2025 GFR/1.73 sq M.predicted among non-blacks MDRD (S/P/Bld) [Vol rate/Area] 59 mL/min/{1.73_m2} Low >60 [facility] Comment on above: mL/min/1.73m2 CKD-EP I Creatinine Equation (2020) HEMOGLOBIN A1Con 08-03-2025 Glucose [Mass/Vol] 103 mg/dL Normal [facility] Comment on above: Performed By: #### H EPCQP #### [facility] (DEFAULT) [address] [address] Hemoglobin A1C HPLC 5.2 % Normal 4.7-5.[address] [facility] Comment on above: Performed By: #### H EPCQP #### [facility] (DEFAULT) [address] [address] HEPATIC FUNCTION PANELon Albumin [Mass/Vol] 4.0 g/dL 3.5 - 5.0 g/dL [facility] ALP [Catalytic activity/Vol] 59 U/L 32 - 126 U/L [facility] ALT [Catalytic activity/Vol] 31 U/L 10 - 52 U/L [facility] AST [Catalytic activity/Vol] 34 U/L 10 - 39 U/L [facility] Comment on above: Specimen slightly he molyzed. AST results may be falsely elevated. Interpret within the clinical context. Bilirubin [Mass/Vol] 0.6 mg/dL [facility] - 1.5 mg/dL [facility] Bilirubin.direct [Mass/Vol] 0.1 mg/dL [facility] - 0.3 mg/dL [facility] Comment on above: Specimen hemolyzed. Direct bilirubin results may be falsely decreased. Interpret within the clinical context. Interpretation and review of laboratory results Normal [facility] Protein [Mass/Vol] 7.5 g/dL 6.4 - 8.3 g/dL [facility] Albumin [Mass/Vol] 4.0 g/dL Normal 3.5-5.0 [facility] Comment on above: Performed By: #### L [id number] #### [facility] (DEFAULT) [address] [address] ALP [Catalytic activity/Vol] 59 U/L Normal 32-[address] [facility] Comment on above: Performed By: #### L [id number] #### [facility] (DEFAULT) [address] [address] ALT [Catalytic activity/Vol] 31 U/L Normal 10-[address] [facility] Comment on above: Performed By: #### L [id number] #### [facility] (DEFAULT) [address] [address] AST [Catalytic activity/Vol] 34 U/L Normal 10-[address] [facility] Comment on above: Result Comment: Spec imen slightly hemolyzed. AST results may be falsely elevated. Interpret within the clinical context. Performed By: #### L [id number] #### [facility] (DEFAULT) [address] [address] Bilirubin [Mass/Vol] 0.6 mg/dL Normal <1.[address] [facility] Comment on above: Performed By: #### L [id number] #### [facility] (DEFAULT) [address] [place] [address] Bilirubin.indirect [Mass/Vol] 0.1 mg/dL Normal <0.[address] [facility] Comment on above: Result Comment: Spec imen hemolyzed. Direct bilirubin results may be falsely decreased. Interpret within the clinical context. Performed By: #### L [id number] #### [facility] (DEFAULT) [address] [place] [address] Protein [Mass/Vol] 7.5 g/dL Normal 6.4-8.3 [facility] Comment on above: Performed By: #### L [id number] #### [facility] (DEFAULT) [address] [place] [address] HIGH SENSITIVITY TROPONIN I - SINGLE ORDERon 08-03-2025 Interpretation and review of laboratory results Normal [facility] Troponin I.cardiac High sensitivity method [Mass/Vol] 9 ng/L NINF - 53 ng/L [facility] hs-Troponin I 9 ng/L Normal <[address] [facility] Comment on above: Order Comment: Acute Coronary Syndrome (ACS): Initial Evaluation and Management:[email or web address] [email or web address]%20Syndrome.[email or web address] Performed By: #### L [id number] #### [facility] (DEFAULT) [address] [place] [address] Hematocrit Auto (Bld) [Volum e fraction]Ordered By: Lissette Ramos on 08-03-2025 Hematocrit (Bld) [Volume fraction] 46.0 % 40-54 [facility] Hemoglobin measurementOrdere d By: Lissette Ramos on 08-03-2025 Hemoglobin (Bld) [Mass/Vol] 16.1 g/dL 13.0-16.5 [facility] Immature granulocytes/100 WB C Auto (Bld)Ordered By: Lissette Ramos on 08-03-2025 Immature granulocytes/100 WBC (Bld) 1.000 % High 0.0-0.9 [facility] Comment on above: IG% - Immature Granu locytes (promyelocytes, myelocytes and metamyelocytes) > 1% indicates that a LEFT SHIFT is Present. International normalized rat io (INR) calculationOrdered By: Lissette Ramos on 08-03-2025 INR Coag (Bld) [Relative time] 1.0 {INR} [facility] L501.4021on 08-03-2025 Trop T High Sen 15 ng/L Normal <=22 [facility] Comment on above: Performed By: #### L 500.4050, L100.0100, L300.3900, L300.4310, L501.4021 #### [facility] Laboratory [address] [place], [place], [id number] LIPID PANEL WITH REFLEX TO Sarath MENA LDLon 08-03-2025 Cholesterol [Mass/Vol] 154 mg/dL NINF - 200 mg/dL [facility] Comment on above: [<200 mg/dL: Desirab le] [200-239 mg/dL: Borderline High] [>239 mg/dL: High] Cholesterol in HDL [Mass/Vol] 40 mg/dL 40 - PINF mg/dL [facility] Comment on above: [<40 mg/dL: Low (Hig h Risk)] [>59 mg/dL: High (Low Risk)] Cholesterol in LDL [Mass/Vol] 90 mg/dL 0 - 99 mg/dL [facility] Comment on above: [<100 mg/dL: Optimal ] [100-129 mg/dL: Near Optimal] [130-159 mg/dL: Borderline High] [160-189 mg/dL: High] [>189 mg/dL: Very High] Cholesterol non HDL [Mass/Vol] 114 mg/dL NINF - 130 mg/dL [facility] Cholesterol.total/Jaycee sterol in HDL [Mass ratio] 3.9 {ratio} [facility] - 4.[address] [facility] Interpretation and review of laboratory results Normal [facility] Triglyceride [Mass/Vol] 119 mg/dL NINF - 150 mg/dL [facility] Comment on above: [<150 mg/dL: Desirab le] [150-199 mg/dL: Borderline] [200-499 mg/dL: High] [>500 mg/dL: Very High] [facility] Calculated LDL Cholesterol 90 mg/dL Normal 0-[address] [facility] Comment on above: Result Comment: [<10 0 mg/dL: Optimal] [100-129 mg/dL: Near Optimal] [130-159 mg/dL: Borderline High] [160-189 mg/dL: High] [>189 mg/dL: Very High] Performed By: #### H EP3B #### [facility] (DEFAULT) [address] [place] [address] Cholesterol [Mass/Vol] 154 mg/dL Normal <[address] [facility] Comment on above: Result Comment: [<20 0 mg/dL: Desirable] [200-239 mg/dL: Borderline High] [>239 mg/dL: High] Performed By: #### H EP3B #### [facility] (DEFAULT) [address] [place] [address] Cholesterol in HDL [Mass/Vol] 40 mg/dL Normal >=[address] [facility] Comment on above: Result Comment: [<40 mg/dL: Low (High Risk)] [>59 mg/dL: High (Low Risk)] Performed By: #### H EP3B #### [facility] (DEFAULT) [address] [place] [address] Non HDL Cholesterol 114 mg/dL Normal <[address] [facility] Comment on above: Performed By: #### H EP3B #### [facility] (DEFAULT) [address] [place] [address] Total Cholesterol/HDL Ratio 3.9 Normal <4.[address] [facility] Comment on above: Performed By: #### H EP3B #### [facility] (DEFAULT) [address] [place] [address] Triglyceride [Mass/Vol] 119 mg/dL Normal <150 [facility] Comment on above: Result Comment: [<15 0 mg/dL: Desirable] [150-199 mg/dL: Borderline] [200-499 mg/dL: High] [>500 mg/dL: Very High] Performed By: #### H EP3B #### [facility] (DEFAULT) [address] [place] [address] Laboratory - Chemistry and C hemistry - challengeOrdered By: Lissette Ramos on 08-03-2025 AST [Catalytic activity/Vol] 37 U/L <38 [facility] MCV (mean corpuscular volume ) determinationOrdered By: Lissette Ramos on 08-03-2025 MCV (RBC) [Entitic vol] 87.6 fL 80-94 [facility] Magnesiumon 08-03-2025 Magnesium [Mass/Vol] 2.1 mg/dL Normal 1.5-2.2 [facility] Comment on above: Performed By: #### L 501.5200 #### [facility] Laboratory [address] [place] [place], [address] Magnesium measurement (mass/ volume)Ordered By: Lissette Ramos on 08-03-2025 Magnesium (Unsp spec) [Mass/Vol] 2.1 mg/dL 1.5-2.2 [facility] Mean corpuscular hemoglobin (MCH) determinationOrdered By: Lissette Ramos on 08-03-2025 MCH (RBC) [Entitic mass] 30.7 pg 27.0-32.0 [facility] Mean corpuscular hemoglobin concentration (MCHC) determinationOrdered By: Lissette Ramos on 08-03-2025 MCHC (RBC) [Mass/Vol] 35.0 g/dL 32-36 [facility] Mean platelet volume determi nationOrdered By: Lissette Ramos on 08-03-2025 Platelet mean volume (Bld) [Entitic vol] 13.7 fL High 6.2-12.0 [facility] Monocyte percentageOrdered B y: Lissette Ramos on 08-03-2025 Monocytes/100 WBC (Bld) 9.7 % 0-10 [facility] Neutrophil percentageOrdered By: Lissette Ramos on 08-03-2025 Neutrophils/100 WBC (Bld) 52.1 % 47-70 [facility] No Panel InformationOrdered By: Soumya Smith on 08-03-[address] [facility] No Panel InformationOrdered By: System Discharge on 08-03-[address] [facility] No Panel Informationon 08-03 [facility] Nucleated red blood cell per centageOrdered By: Lissette Ramos on 08-03-2025 Nucleated RBC/100 WBC (Bld) [Ratio] 0 % 0-5 [facility] PLATELET COUNTon 08-03-2025 Interpretation and review of laboratory results Abnormal [facility] Platelet mean volume (Bld) [Entitic vol] [facility] Comment on above: Not measured Platelets (Bld) [#/Vol] 64 10*3/uL Low 146 - 337 K/uL [facility] Mean Platelet Volume Normal [facility] Comment on above: Order Comment: This order contains result documents that were not sent. The result might be incomplete. Result Comment: Not measured Performed By: #### H EP3B #### [facility] (DEFAULT) [address] [place] [address] Platelets (Bld) [#/Vol] 64 10*3/uL Low 146-337 [facility] Comment on above: Order Comment: This order contains result documents that were not sent. The result might be incomplete. Performed By: #### H EP3B #### [facility] (DEFAULT) [address] [place] [address] PREPARE TO TRANSFUSE PLATELE Ton 08-03-2025 ABO/RH(D) TYPE Positive [facility] BLOOD COMPONENT TYPE Irradiated Leukoreduced Platelet Apheresis [facility] EXPIRATION DATE [id number] [facility] Product ABO/RH(D) Positive [facility] Product ABO/RH(D) NUMBER [address] [facility] PRODUCT CODE [id number] [facility] Unit Compatibility Not Required / Not Needed [facility] UNIT NUMBER [id number] [facility] UNIT STATUS transfused [facility] ABO/RH(D) TYPE Positive [facility] BLOOD COMPONENT TYPE Irradiated Leukoreduced Platelet Apheresis [facility] EXPIRATION DATE [id number] [facility] Product ABO/RH(D) Positive [facility] Product ABO/RH(D) NUMBER [address] [facility] PRODUCT CODE [id number] [facility] Unit Compatibility Not Required / Not Needed [facility] UNIT NUMBER [id number] [facility] UNIT STATUS transfused [facility] PTINR-STROKEon 08-03-2025 INR Coag (Bld) [Relative time] 1.0 {INR} 0.9 - 1.[address] [facility] Interpretation and review of laboratory results Normal [facility] PT Coag (PPP) [Time] 13.7 s [facility] INR Coag (PPP) [Relative time] 1.0 {INR} Normal 0.9-1.[address] [facility] Comment on above: Performed By: #### H EPCQP #### [facility] (DEFAULT) [address] [place] [address] PT Coag (PPP) [Time] 13.7 s Normal 11.9-14.[address] [facility] Comment on above: Performed By: #### H EPCQP #### [facility] (DEFAULT) [address] [place] [address] PTTon 08-03-2025 aPTT Coag (PPP) [Time] 30.2 s OS [facility] Interpretation and review of laboratory results Normal [facility] aPTT Coag (Bld) [Time] 30.2 s Normal 24.0-34.3 [facility] Comment on above: Performed By: #### H EPCQP #### [facility] (DEFAULT) [address] [place] [address] Partial Thromboplast Timeon 08-03-2025 aPTT Coag (Bld) [Time] 25.5 s Normal 24.1-36.2 [facility] Comment on above: Performed By: #### L 500.4050, L100.0100, L300.3900, L300.4310, L501.4021 #### [facility] [address] [place], [address] Platelet countOrdered By: Steven Ramos on 08-03-2025 Platelets (Bld) [#/Vol] 54 10*3/uL Low 150-450 [facility] Potassium measurement (mass/ volume)Ordered By: Lissette Ramos on 08-03-2025 Potassium (Unsp spec) [Mass/Vol] 3.2 mmol/L Low 3.3-5.1 [facility] Prothrombin Time w/INRon INR Coag (PPP) [Relative time] 1.0 {INR} Normal [facility] Comment on above: Performed By: #### L 500.4050, L100.0100, L300.3900, L300.4310, L501.4021 #### [facility] [address] [place], [address] PT Coag (PPP) [Time] 13.0 s Normal 11.7-14.9 [facility] Comment on above: Performed By: #### L 500.4050, L100.0100, L300.3900, L300.4310, L501.4021 #### [facility] [address] [place], [address] Prothrombin timeOrdered By: Lissette Ramos on 08-03-2025 PT Coag (PPP) [Time] 13.0 s 11.7-14.9 [facility] RBC Auto (Bld) [#/Vol]Ordere d By: Lissette Ramos on 08-03-2025 RBC (Bld) [#/Vol] 5.25 10*6/uL 4.6-6.2 [facility] STROKE Brain/Head without Co nton 08-03-2025 STROKE Brain/Head without Cont [facility] Imaging Services [address] [place], [place] [address] STROKE Brain/Head without Cont MR#: [id number] Acct: [id number] Name: ESVIN GUERRIER Jr. Rep #: [id number] : 1960 M 64 From: Corazon Dyer MD PCP: Care Physician,No Primary Status: [facility] ER Study: STROKE Brain/Head without Cont Date of Exam: 0 08/03/25 Exam# [id number] Ordering Dr: Lissette Ramos MD ADDENDUM by Dr. Corazon Dyer MD on 08/03/25 at 0836 Intraparenchymal hemorrhage The critical findings in the findings and impression above were relayed directly by Dr. Corazon Dyer by telephone to Dr. Lissette Ramos on 08/03/2025 at 7:45am with readback verification. Reading Location: [facility] 08/03/25 0837 Date cc: Dr. Lissette Ramos MD; No Primary Care Physician * Signed PROCEDURE: STROKE BRAIN/HEAD WITHOUT CONT 08/03/2025 REASON FOR EXAM: NEURO DEFICIT, ACUTE, STROKE SUSPECTED TECHNIQUE: Procedure Code: CTBR.ST Modality: CT Procedure: STROKE BRAIN/HEAD WITHOUT CONT Coronal and Sagittal reconstruction series were provided. One or more dose reduction techniques were used (e.g., Automated exposure control, adjustment of the mA and/or kV according to patient size, use of iterative reconstruction technique. RADIATION DOSE SUMMARY: DLP: 796.11 mGycm COMPARISON: CT head 04/19/2024. 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 An additional focus of hemorrhage in the right basal ganglia measuring up to 7 mm in length. No acute transcortical infarct. Nonspecific round hypodense focus in the left purcell radiata may reflect enlarged perivascular space, chronic, infarct, or cystic lesion. Confluent periventricular and subcortical white matter hypodensities compatible with severe chronic microvascular ischemic changes. No brain herniation. Global cerebral volume loss. No hydrocephalus. The basal cisterns are patent. The mastoid air cells are clear. The paranasal sinuses are predominantly clear. The calvarium appears intact. 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 No CT evidence of acute transcortical infarct. Reading Location: [id number] CC: Dr. 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: Signed Normal [facility] Serum creatinine measurement (mass/volume)Ordered By: Lissette Ramos on 08-03-2025 Creatinine [Mass/Vol] 1.34 mg/dL High 0.70-1.20 [facility] Serum globulin measurementOr dered By: Lissette Ramos on 08-03-2025 Globulin (S) [Mass/Vol] 4.0 g/dL 2.2-4.2 [facility] Serum glucose measurement (m ass/volume)Ordered By: Lissette Ramos on 08-03-2025 Glucose [Mass/Vol] 139 mg/dL High 70-99 [facility] Serum or plasma alanine albarran otransferase (ALT) measurementOrdered By: Lissette Ramos on 08-03-2025 ALT [Catalytic activity/Vol] 44 U/L <47 [facility] Serum or plasma albumin rachell urement (mass/volume)Ordered By: Lissette Ramos on 08-03-2025 Albumin [Mass/Vol] 4.4 g/dL 3.4-4.8 [facility] Serum or plasma albumin/glob ulin mass ratioOrdered By: Lissette Ramos on 08-03-2025 Albumin/Globulin [Mass ratio] 1.1 {ratio} 0.9-2.4 [facility] Serum or plasma alkaline alden sphatase measurementOrdered By: Lissette Ramos on 08-03-2025 ALP [Catalytic activity/Vol] 79 U/L 40-129 [facility] Serum or plasma calcium rachell urement (mass/volume)Ordered By: Lissette Ramos on 08-03-2025 Calcium [Mass/Vol] 9.5 mg/dL 7.6-11.0 [facility] Serum or plasma urea nitroge n measurement (mass/volume)Ordered By: Lissette Ramos on 08-03-2025 Urea nitrogen [Mass/Vol] 20 mg/dL High 4-19 [facility] Sodium levelOrdered By: Denis Ramos on 08-03-2025 Sodium [Moles/Vol] 140 mmol/L 133-145 [facility] TYPE AND SCREENon 08-03-2025 ABO/RH(D) TYPE Positive [facility] Specimen Expiration 08/06/2025 23:59 [facility] ABO/RH(D) TYPE Positive Normal [facility] Comment on above: Performed By: #### L [id number] #### [facility] (DEFAULT) [address] [address] Specimen Expiration 08/06/2025 23:[address] [facility] Comment on above: Performed By: #### L [id number] #### [facility] (DEFAULT) [address] [place] [address] Total proteinOrdered By: Shira Ramos on 08-03-2025 Protein [Mass/Vol] 8.4 g/dL 5.9-8.4 [facility] Troponin T HS 2 HRon 025 Trop T High Sen Normal <=22 [facility] Comment on above: Result Comment: Canc elled via OM: Order cancelled - Patient discharged Performed By: #### L 499.0042 #### [facility] Laboratory [address] [place], [place], [id number] Troponin T HS 4 HRon 025 Trop T High Sen Normal <=22 [facility] Comment on above: Result Comment: Canc elled via OM: Order cancelled - Patient discharged Performed By: #### L 499.0043 #### [facility] [address] [place], [place], [id number] Troponin T.cardiac [Mass/vol ume] in Serum or Plasma by High sensitivity methodOrdered By: Lissette Ramos on 08-03-2025 Troponin T.cardiac High sensitivity method [Mass/Vol] 15 ng/L <22 [facility] URINE DRUG SCREEN 10Ordered By: Alexindira Calvillo on 08-03-2025 Amphetamine+Methampheta mine Screen (U) [Mass/Vol] Positive Abnormal Cutoff: 500 ng/mL [facility] Barbiturates Ql (U) Not detected Cutoff: 200 ng/mL [facility] Benzodiazepines Ql (U) Not detected Cutof f: 200 ng/mL [facility] Buprenorphine Ql (U) Not detected Cutoff: 5 ng/mL [facility] Cannabinoids Screen Ql (U) Positive Abnormal Cutoff: 50 ng/mL [facility] Cocaine Ql (U) Positive Abnormal Cutoff: 150 ng/mL [facility] fentaNYL Ql (U) Not detected Cutoff: 1 ng/mL [facility] Interpretation and review of laboratory results Abnormal [facility] Methadone Ql (U) Not detected Cutoff: 300 ng/mL [facility] Opiates Ql (U) Not detected Cutoff: 300 ng/mL [facility] oxyCODONE Ql (U) Not detected Cutoff: 100 ng/mL [facility] For medical purposes only. Positive results are unconfirmed unless otherwise noted. [facility] URINE DRUG SCREEN 08-03 Amphetamine/Methampheta mine Positive Abnormal Cutoff: 500 ng/mL [facility] Comment on above: Order Comment: For m edical purposes only. Positive results are unconfirmed unless otherwise noted. Performed By: #### C HM7 #### [facility] (DEFAULT) [address] [place] [address] Barbiturates Not detected Normal Cutoff: 200 ng/mL [facility] Comment on above: Order Comment: For m edical purposes only. Positive results are unconfirmed unless otherwise noted. Performed By: #### C HM7 #### [facility] (DEFAULT) [address] [address] Benzodiazepines Not detected Normal Cutoff: 200 ng/mL [facility] Comment on above: Order Comment: For edical purposes only. Positive results are unconfirmed unless otherwise noted. Performed By: #### C HM7 #### [facility] (DEFAULT) [address] [address] Buprenorphine Not detected Normal Cutoff: 5 ng/mL [facility] Comment on above: Order Comment: For m edical purposes only. Positive results are unconfirmed unless otherwise noted. Performed By: #### C HM7 #### [facility] (DEFAULT) [address] [address] Cannabinoids Screen Ql (U) Positive Abnormal Cutoff: 50 ng/mL [facility] Comment on above: Order Comment: For edical purposes only. Positive results are unconfirmed unless otherwise noted. Performed By: #### C HM7 #### [facility] (DEFAULT) [address] [address] Cocaine Positive Abnormal Cutoff: 150 ng/mL [facility] Comment on above: Order Comment: For edical purposes only. Positive results are unconfirmed unless otherwise noted. Performed By: #### C HM7 #### [facility] (DEFAULT) [address] [address] Fentanyl Not detected Normal Cutoff: 1 ng/mL [facility] Comment on above: Order Comment: For edical purposes only. Positive results are unconfirmed unless otherwise noted. Performed By: #### C HM7 #### [facility] (DEFAULT) [address] [address] Methadone Not detected Normal Cutoff: 300 ng/mL [facility] Comment on above: Order Comment: For edical purposes only. Positive results are unconfirmed unless otherwise noted. Performed By: #### C HM7 #### [facility] (DEFAULT) [address] [address] Opiates Not detected Normal Cutoff: 300 ng/mL [facility] Comment on above: Order Comment: For m edical purposes only. Positive results are unconfirmed unless otherwise noted. Performed By: #### C HM7 #### [facility] (DEFAULT) [address] [place] [address] Oxycodone Not detected Normal Cutoff: 100 ng/mL [facility] Comment on above: Order Comment: For m edical purposes only. Positive results are unconfirmed unless otherwise noted. Performed By: #### C HM7 #### [facility] (DEFAULT) [address] [place] [address] Urinalysis, Completeon 08-03 BACTERIA Normal None Seen [facility] Comment on above: Order Comment: COLLE CTOR TO SPECIFY Result Comment: BLANCA ENT DISCHARGED PER [facility] RN Performed By: #### L 499.0043 #### [facility] [address] [place], [address] BILIRUBIN URINE Normal Negative [facility] Comment on above: Order Comment: COLLE CTOR TO SPECIFY Result Comment: BLANCA ENT DISCHARGED PER [facility] RN Performed By: #### L 499.0043 #### [facility] [address] [place], [address] Clarity (U) Normal Clear [facility] Comment on above: Order Comment: COLLE CTOR TO SPECIFY Result Comment: BLANCA ENT DISCHARGED PER [facility] RN Performed By: #### L 499.0043 #### [facility] [address] [place], [address] Color (U) Normal Yellow [facility] Comment on above: Order Comment: COLLE CTOR TO SPECIFY Result Comment: BLANCA ENT DISCHARGED PER [facility] RN Performed By: #### L 499.0043 #### [facility] [address] [place], [address] EPI,SQUAMOUS Normal 0-5 [facility] Comment on above: Order Comment: COLLE CTOR TO SPECIFY Result Comment: BLANCA ENT DISCHARGED PER [facility] RN Performed By: #### L 499.0043 #### [facility] [address] [place], [address] GLUCOSE, UR Normal Normal [facility] Comment on above: Order Comment: COLLE CTOR TO SPECIFY Result Comment: BLANCA ENT DISCHARGED PER [facility] RN Performed By: #### L 499.0043 #### [facility] [address] [place], [address] KETONE UR Normal Negative [facility] Comment on above: Order Comment: COLLE CTOR TO SPECIFY Result Comment: BLANCA ENT DISCHARGED PER [facility] RN Performed By: #### L 499.0043 #### [facility] [address] [place], [address] LEUK ESTERASE Normal Negative [facility] Comment on above: Order Comment: COLLE CTOR TO SPECIFY Result Comment: BLANCA ENT DISCHARGED PER [facility] RN Performed By: #### L 499.0043 #### [facility] [address] [place], [address] Mucus Ql (Urine sed) Normal [facility] Comment on above: Order Comment: COLLE CTOR TO SPECIFY Result Comment: BLANCA ENT DISCHARGED PER [facility] RN Performed By: #### L 499.0043 #### [facility] [address] [place], [address] Nitrite Ql (U) Normal Negative [facility] Comment on above: Order Comment: COLLE CTOR TO SPECIFY Result Comment: BLANCA ENT DISCHARGED PER [facility] RN Performed By: #### L 499.0043 #### [facility] [address] [place], [address] OCCULT BLOOD-UR Normal Negative [facility] Comment on above: Order Comment: COLLE CTOR TO SPECIFY Result Comment: BLANCA ENT DISCHARGED PER [facility] RN Performed By: #### L 499.0043 #### [facility] [address] [place], [address] pH UR Normal 5.0 - 8.0 [facility] Comment on above: Order Comment: COLLE CTOR TO SPECIFY Result Comment: BLANCA ENT DISCHARGED PER [facility] RN Performed By: #### L 499.0043 #### [facility] [address] [place], [address] PROT DIPSTX Normal Negative [facility] Comment on above: Order Comment: COLLE CTOR TO SPECIFY Result Comment: BLANCA ENT DISCHARGED PER [facility] RN Performed By: #### L 499.0043 #### [facility] [address] [place], [address] RBC Normal 0-5 [facility] Comment on above: Order Comment: COLLE CTOR TO SPECIFY Result Comment: BLANCA ENT DISCHARGED PER [facility] RN Performed By: #### L 499.0043 #### [facility] [address] [place], [address] SP.GR. DIPSTX Normal 1.002-1.030 [facility] Comment on above: Order Comment: COLLE CTOR TO SPECIFY Result Comment: BLANCA ENT DISCHARGED PER [facility] RN Performed By: #### L 499.0043 #### [facility] [address] [place], [address] UR Preservative Normal [facility] Comment on above: Order Comment: COLLE CTOR TO SPECIFY Result Comment: BLANCA ENT DISCHARGED PER [facility] RN Performed By: #### L 499.0043 #### [facility] [address] [place], [address] UROBILI Normal Normal [facility] Comment on above: Order Comment: COLLE CTOR TO SPECIFY Result Comment: BLANCA ENT DISCHARGED PER [facility] RN Performed By: #### L 499.0043 #### [facility] [address] [place], [address] WBC Normal 0-5 [facility] Comment on above: Order Comment: COLLE CTOR TO SPECIFY Result Comment: BLANCA ENT DISCHARGED PER [facility] RN Performed By: #### L 499.0043 #### [facility] [address] [place], [address] Urine Drug Screen (VISTA)on 08-03-2025 AMPHETAMINES Normal <1000 ng/mL [facility] Comment on above: Result Comment: BLANCA ENT DISCHARGED PER [facility] RN Performed By: #### L 505.5000 #### [facility] [address] [place] [address] BARBITIURATES Normal < 200 ng/mL [facility] Comment on above: Result Comment: BLANCA ENT DISCHARGED PER [facility] RN Performed By: #### L 505.5000 #### [facility] [address] [place] [address] BENZODIAZIPINE Normal < 200 ng/mL [facility] Comment on above: Result Comment: BLANCA ENT DISCHARGED PER [facility] RN Performed By: #### L 505.5000 #### [facility] [address] [place] [address] BUP Ur Drug Scr Normal < 200 ng/mL [facility] Comment on above: Result Comment: BLANCA ENT DISCHARGED PER [facility] RN Performed By: #### L 505.5000 #### [facility] [address] [place] [address] COCAINE Normal < 300 ng/mL [facility] Comment on above: Result Comment: BLANCA ENT DISCHARGED PER [facility] RN Performed By: #### L 505.5000 #### [facility] [address] [place] [address] Fentanyl Normal <5 ng/mL [facility] Comment on above: Result Comment: BLANCA ENT DISCHARGED PER [facility] RN Performed By: #### L 505.5000 #### [facility] [address] [place] [address] METHADONE Normal < 300 ng/mL [facility] Comment on above: Result Comment: BLANCA ENT DISCHARGED PER [facility] RN Performed By: #### L 505.5000 #### [facility] [address] [place] [address] OPIATES Normal < 300 ng/mL [facility] Comment on above: Result Comment: BLANCA ENT DISCHARGED PER [facility] RN Performed By: #### L 505.5000 #### [facility] [address] [place] [address] OXYCODONE Normal < 100 ng/mL [facility] Comment on above: Result Comment: BLANCA ENT DISCHARGED PER [facility] RN Performed By: #### L 505.5000 #### [facility] [address] [place], [address] PCP Normal < 25 ng/mL [facility] Comment on above: Result Comment: BLANCA ENT DISCHARGED PER [facility] RN Performed By: #### L 505.5000 #### [facility] [address] [place], [address] THC Normal < 50 ng/mL [facility] Comment on above: Result Comment: BLANCA ENT DISCHARGED PER [facility] RN Performed By: #### L 505.5000 #### [facility] [address] [place], [address] White blood cell (WBC) count Ordered By: Lissette Ramos on 08-03-2025 WBC (Bld) [#/Vol] 7.3 10*3/uL 4.4-11.0 [facility] MR/PATNEHEMIASon 10-29-2024 MR/[facility] Medical Records Department [address] [place] [address] PAT - Anesthesia 10/29/24 1834 MR#: [id number] Acct: [id number] Name: ESVIN GUERRIER Rep #: [id number] : 1960 63 From: Jose Reeves MD PCP: Care Physician,No Primary Status:PRE [facility] [place] Race: C Location: [place] Pre-Assessment Diagnosis/Proposed Procedure Planned Operative Procedure(s): COLONOSCOPY, EGD Anesthesia History Anesthesia History - health coach: Anesthesia History - health coach Hx Hospitalization Yes: 10/06- RECTAL BLEEDING 10/29/24 [...] take am of surgery PONV PONV - health coach: PONV - health coach Female No 10/29/24 14:53 HX of Motion Sickness No 10/29/24 14:53 HX of N/V After Surgery No 10/29/24 14:53 Non-Smoker Yes 10/29/24 14:53 Duration of Surgery greater No 10/29/24 14:53 than 60 minutes Number of Risk Factors 1 10/29/24 14:53 PONV Score Low Risk 10/29/24 14:53 Height Weight Height Weight: Anesthesia: Height Weight Height 6 ft 08/21/24 21:35 Respiratory Assessment Respiratory Assessment - health coach: Respiratory Tract Infection Hx - health coach Hx Respiratory Tract Infection No 10/29/24 14:53 STOP Sleep Apnea STOP Sleep Apnea - health coach: STOP Sleep Apnea - health coach Hx Hypertension Yes: CONTROLLED WITH MEDS 10/29/24 [...] Tobacco Use History Tobacco Use History - health coach: Tobacco Use History - health coach Tobacco Use Smoking Status Current every day smoker 10/29/24 14:53 Hx Tobacco Use Yes 10/29/24 14:53 Years Smoking Packs Smoked per Day Smoking Cessation Date was within the last 15 years Hx Smoking Cessation Date Hx Smoking Cessation No 10/29/24 14:53 Counseling Hematologic Medial History Hematologic Hx - health coach: 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 Normal [facility] Gastroenterology Visit Repor ton 09-13-2024 Gastroenterology Visit Report [facility] [address] [place] [address] OFFICE VISIT Date of Service: 09/13/24 MR#: [id number] Acct: [id number] Name: ESVIN GUERRIER Jr. Rep #: [id number] : 1960 Provider: Cosme Wisdom, DO Age/Sex: 63/M Location: [facility] Status: Signed Intake Vital Signs 08/21/24 21:35 [...] HPI Chief Complaint: Low platelet count Details: ESVIN GUERRIER, is a 63 M who presents to the office today for hospital follow up. [facility] hospitalization 08.21.24 - 08.22.24 GI bleed - [...] Appearance: average body habitus and well nourished HENCO Head: normal to inspection Ears: hearing grossly [...] who presented to the emergency department at [facility] on 08/21/2024 for rectal bleeding. Evidently he is hard of heari (more content not included)... Normal [facility] Urine Cultureon 08-25-2024 [facility] Staphylococcus haemolyticus [place] Count 50,000-80,000 Staphylococcus haemolyticus: REACTION cefOXitin Susc Islt Clindamycin.induced Susc Islt POS Gentamicin Islt ALAN <=0.5 S Linezolid Islt ALAN 2 S Nitrofurantoin Islt ALAN <=16 S Oxacillin Susc Islt <=0.25 S Tetracycline Islt ALAN >=16 R Vancomycin Islt ALAN 1 S Normal [facility] Comment on above: Performed By: #### L 505.5000 #### [facility] [address] [place], [address] CBC W/Diff, Automatedon 10- PATH REV Reviewed Normal [facility] Comment on above: Result Comment: FAWAD POLANCO Thrombocytopenia. Clinical correlation necessary. Carlos A Ulloa M.D. 08/22/24 AMENDED REPORT 08/22/24 1356 PATH REV previously reported as: March funmi Performed By: #### L 505.5000 #### [facility] [address] [place], [address] Comprehensive Metabolic Prof ilon 08-22-2024 Albumin [Mass/Vol] 3.3 g/dL Normal 3.2-5.0 [facility] Comment on above: Performed By: #### L 505.5000 #### [facility] [address] [place], [address] Albumin/Globulin [Mass ratio] 0.8 {ratio} Low 0.9-2.4 [facility] Comment on above: Performed By: #### L 505.5000 #### [facility] [address] [place], [address] ALK P 66 U/L Normal 45-117 [facility] Comment on above: Performed By: #### L 505.5000 #### [facility] [address] [place], [address] ALT [Catalytic activity/Vol] 53 U/L Normal 16-61 [facility] Comment on above: Performed By: #### L 505.5000 #### [facility] [address] [place], [address] AST [Catalytic activity/Vol] 31 U/L Normal 15-37 [facility] Comment on above: Performed By: #### L 505.5000 #### [facility] [address] [place], [address] Bilirubin [Mass/Vol] 0.60 mg/dL Normal 0.20-1.00 [facility] Comment on above: Result Comment: For patients on eltrombopag therapy, use of Dimension [place] TBIL is not recommended. Performed By: #### L 505.5000 #### [facility] [address] [place], [address] BUN/CRE 17.6 RATIO Normal 10-20 [facility] Comment on above: Performed By: #### L 505.5000 #### [facility] [address] [place], [address] CA,Total 8.5 mg/dL Normal 8.5-10.1 [facility] Comment on above: Performed By: #### L 505.5000 #### [facility] [address] [place], [address] Chloride [Moles/Vol] 107 mmol/L Normal 98-107 [facility] Comment on above: Performed By: #### L 505.5000 #### [facility] [address] [place], [address] CO2 [Moles/Vol] 24.0 mmol/L Normal 21.0-32.0 [facility] Comment on above: Performed By: #### L 505.5000 #### [facility] [address] [place], [address] Creatinine [Mass/Vol] 1.19 mg/dL Normal 0.70-1.30 [facility] Comment on above: Result Comment: The validity of the calculated GFR GFRAA in patients over 70 years has not been determined. Clinical correlation is essential. Performed By: #### L 505.5000 #### [facility] [address] [place], [address] ECRCL 68.83 ml/min Normal [facility] Comment on above: Performed By: #### L 505.5000 #### [facility] [address] [place], [address] EST GFR - AA 79 mL/min Normal >60 [facility] Comment on above: Result Comment: Afri can [place] GFR Calc Performed By: #### L 505.5000 #### [facility] [address] [place], [address] GAP 8 Normal 5-15 [facility] Comment on above: Performed By: #### L 505.5000 #### [facility] [address] [place], [address] GFR/1.73 sq M.predicted among non-blacks MDRD (S/P/Bld) [Vol rate/Area] 65 mL/min/{1.73_m2} Normal >60 [facility] Comment on above: Result Comment: Non- GFR Calc Performed By: #### L 505.5000 #### [facility] [address] [place], [address] Globulin (S) [Mass/Vol] 4.0 g/dL Normal 2.2-4.2 [facility] Comment on above: Performed By: #### L 505.5000 #### [facility] [address] [place], [address] Glucose [Mass/Vol] 108 mg/dL High 74-106 [facility] Comment on above: Result Comment: Fast ing Glucose result from 100 to 125 mg/dL suggests IMPAIRED HOMEOSTASIS per A.D.A. criteria. Performed By: #### L 505.5000 #### [facility] [address] [place], [address] Potassium [Moles/Vol] 3.6 mmol/L Normal 3.5-5.1 [facility] Comment on above: Performed By: #### L 505.5000 #### [facility] [address] [place], [address] Sodium [Moles/Vol] 139 mmol/L Normal 136-145 [facility] Comment on above: Performed By: #### L 505.5000 #### [facility] [address] [place], [address] T PROT 7.3 g/dL Normal 6.4-8.2 [facility] Comment on above: Performed By: #### L 505.5000 #### [facility] [address] [place], [address] Urea nitrogen [Mass/Vol] 21 mg/dL High 7-18 [facility] Comment on above: Performed By: #### L 505.5000 #### [facility] [address] [place], [address] HH, Hemoglobin AND Hematocri ton 08-22-2023 HCT Normal 40-54 [facility] Comment on above: Result Comment: Stevan love via OM: Ordered Performed By: #### L 505.5000 #### [facility] [address] [place], [address] HGB Normal 13.0-16.5 [facility] Comment on above: Result Comment: Stevan love via OM: Ordered Performed By: #### L 505.5000 #### [facility] [address] [place], [address] HCT Normal 40-54 [facility] Comment on above: Result Comment: Stevan love via OM: Ordered Performed By: #### L 499.0043 #### [facility] [address] [place], [address] HGB Normal 13.0-16.5 [facility] Comment on above: Result Comment: Stevan love via OM: Ordered Performed By: #### L 499.0043 #### [facility] [address] [place], [address] Hematocrit (Bld) [Volume fraction] 43.4 % Normal 40-54 [facility] Comment on above: Performed By: #### L 100.0600 #### [facility] [address] [place], [address] Hemoglobin (Bld) [Mass/Vol] 15.4 g/dL Normal 13.0-16.5 [facility] Comment on above: Performed By: #### L 100.0600 #### [facility] [address] [place], [address] T4 Free Directon 08-22-2024 T4 FREE DIRECT 0.84 ng/dL Normal 0.76-1.46 [facility] Comment on above: Performed By: #### L 499.0042 #### [facility] [address] [place], [address] Thyroid Stim Hormone (TSH)on 08-22-2024 TSH 17.300 uIU/mL High 0.358-3.740 [facility] Comment on above: Performed By: #### L 505.5000 #### [facility] [address] [place], [address] Urinalysis, Completeon 08-22 BACTERIA 1+ /hpf Normal None Seen [facility] Comment on above: Order Comment: CLEAN CATCH Performed By: #### L 505.5000 #### [facility] [address] [place], [address] EPI,SQUAMOUS 0-5 SEEN Normal 0-5 [facility] Comment on above: Order Comment: CLEAN CATCH Performed By: #### L 505.5000 #### [facility] [address] [place], [address] RBC 25-50 SEEN Normal 0-5 [facility] Comment on above: Order Comment: CLEAN CATCH Performed By: #### L 505.5000 #### [facility] [address] [place], [address] WBC 50-100 SEEN Normal 0-5 [facility] Comment on above: Order Comment: CLEAN CATCH Performed By: #### L 505.5000 #### [facility] [address] [place], [address] Mucus Ql (Urine sed) 0 SEEN Normal [facility] Comment on above: Order Comment: CLEAN CATCH Performed By: #### L 505.5000 #### [facility] [address] [place], [address] 12 Lead EKGon 08-21-2024 12 Lead EKG [facility] Cardiovascular Services [address] [place] [address] 12 Lead EKG 08/21/242049 MR#: [id number] Acct: [id number] Name: ESVIN GUERRIER Jr. Rep #: [id number] : 1960 63 From: Tobin Marley MD [...] Normal ECG Confirmed by TOBIN MARLEY MD ([id number]), manager editorial PATRICIA DE LOS SANTOS ([id number]) on 08/23/2024 2:09:56 PM Referred By: Светлана Chance Confirmed By:TOBIN MARLEY MD 08/23/24 1410 Date Tobin Marley MD CC: Dr. Yessenia Molina DO; Dr. Zack Snow MD; Dr. Светлана Chance DO; No Primary Care Physician Signed Normal [facility] Abdomen/Pelvis W IV Cont ONL Yon 08-21-2024 Abdomen/Pelvis W IV Cont ONLY [facility] Imaging Services [address] [place] [address] Abdomen/Pelvis W IV Cont ONLY MR#: [id number] Acct: [id number] Name: ESVIN GUERRIER Jr. Rep #: [id number] : 1960 M 63 From: Lance Taylor MD PCP: Dr. Sandro Zuniga MD Status: [facility] ER Study: Abdomen/Pelvis W IV Cont ONLY Date of Exam: Exam# [id number] Ordering Dr: Светлана Chance DO [id number] STUDY: CT ABDOMEN AND PELVIS WITH CONTRAST [...] Signed: Lance Taylor MD at 18:46 EDT Reading Location ID and State: [facility] / [place] Tel , Service support , CC: Dr. Sandro Zuniga MD; Dr. 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, [address] CA,Total 9.0 mg/dL Normal 8.5-10.1 [facility] Comment on above: Performed By: #### L 499.0043 #### [facility] [address] [place], [address] Chloride [Moles/Vol] 105 mmol/L Normal 98-107 [facility] Comment on above: Performed By: #### L 499.0043 #### [facility] [address] [place], [address] CO2 [Moles/Vol] 26.0 mmol/L Normal 21.0-32.0 [facility] Comment on above: Performed By: #### L 499.0043 #### [facility] [address] [place], [address] Creatinine [Mass/Vol] 1.20 mg/dL Normal 0.70-1.30 [facility] Comment on above: Result Comment: The validity of the calculated GFR GFRAA in patients over 70 years has not been determined. Clinical correlation is essential. Performed By: #### L 499.0043 #### [facility] [address] [place], [address] EST GFR - AA 78 mL/min Normal >60 [facility] Comment on above: Result Comment: Afri can British GFR Calc Performed By: #### L 499.0043 #### [facility] [address] [place], [address] GAP 8 Normal 5-15 [facility] Comment on above: Performed By: #### L 499.0043 #### [facility] [address] [place], [address] GFR/1.73 sq M.predicted among non-blacks MDRD (S/P/Bld) [Vol rate/Area] 65 mL/min/{1.73_m2} Normal >60 [facility] Comment on above: Result Comment: Non- GFR Calc Performed By: #### L 499.0043 #### [facility] [address] [place], [address] Glucose [Mass/Vol] 133 mg/dL High 74-106 [facility] Comment on above: Result Comment: Fast ing Glucose result greater than or equal to 126 mg/dL suggests DIABETES MELLITUS per A.D.A. criteria. Performed By: #### L 499.0043 #### [facility] [address] [place], [address] Potassium [Moles/Vol] 3.5 mmol/L Normal 3.5-5.1 [facility] Comment on above: Performed By: #### L 499.0043 #### [facility] [address] [place], [address] Sodium [Moles/Vol] 139 mmol/L Normal 136-145 [facility] Comment on above: Performed By: #### L 499.0043 #### [facility] [address] [place], [address] Urea nitrogen [Mass/Vol] 21 mg/dL High 7-18 [facility] Comment on above: Performed By: #### L 499.0043 #### [facility] [address] [place], [address] CBC W/Diff, Automatedon 10-0 Platelets (Bld) [#/Vol] 50 10*3/uL Invalid Interpretation Code 150-450 [facility] Comment on above: Result Comment: CRIT ICAL VALUE CALLED TO JIM ENRIQUEZ 08/21/24 1755 Alexey Goodwin. RESULTS READ BACK BY SAME. Performed By: #### L 499.0043 #### [facility] [address] [place], [address] Absolute Lymph 1.46 X10 3/uL Normal 0.83-4.51 [facility] Comment on above: Performed By: #### L 499.0043 #### [facility] [address] [place], [address] Absolute Neut 3.3 X10 3/uL Normal 2.0-7.7 [facility] Comment on above: Performed By: #### L 499.0043 #### [facility] [address] [place], [address] Basophils/100 WBC (Bld) 0.2 % Normal 0-1 [facility] Comment on above: Performed By: #### L 499.0043 #### [facility] [address] [place], [address] Eosinophils/100 WBC (Bld) 1.1 % Normal 0-5 [facility] Comment on above: Performed By: #### L 499.0043 #### [facility] [address] [place], [address] Erythrocyte distribution width (RBC) [Ratio] 14.0 % Normal 11.6-14.6 [facility] Comment on above: Performed By: #### L 499.0043 #### [facility] [address] [place], [address] Hematocrit (Bld) [Volume fraction] 46.5 % Normal 40-54 [facility] Comment on above: Performed By: #### L 499.0043 #### [facility] [address] [place], [address] Hemoglobin (Bld) [Mass/Vol] 15.7 g/dL Normal 13.0-16.5 [facility] Comment on above: Performed By: #### L 499.0043 #### [facility] [address] [place], [address] IG% 0.600 Normal 0.0-0.9 [facility] Comment on above: Result Comment: IG% - Immature Granulocytes (promyelocytes, myelocytes and metamyelocytes) > 1% indicates that a LEFT SHIFT is Present. Performed By: #### L 499.0043 #### [facility] [address] [place], [address] Lymphocytes/100 WBC (Bld) 27.3 % Normal 19-41 [facility] Comment on above: Performed By: #### L 499.0043 #### [facility] [address] [place], [address] MCH (RBC) [Entitic mass] 29.6 pg Normal 27.0-32.0 [facility] Comment on above: Performed By: #### L 499.0043 #### [facility] [address] [place], [address] MCHC (RBC) [Mass/Vol] 33.8 g/dL Normal 32-36 [facility] Comment on above: Performed By: #### L 499.0043 #### [facility] [address] [place], [address] MCV (RBC) [Entitic vol] 87.6 fL Normal 80-94 [facility] Comment on above: Performed By: #### L 499.0043 #### [facility] [address] [place], [address] Monocytes/100 WBC (Bld) 8.6 % Normal 0-10 [facility] Comment on above: Performed By: #### L 499.0043 #### [facility] [address] [place], [address] Neutrophils/100 WBC (Bld) 62.2 % Normal 47-70 [facility] Comment on above: Performed By: #### L 499.0043 #### [facility] [address] [place], [address] Nucleated RBC (Bld) [#/Vol] 0 10*3/uL Normal 0-5 [facility] Comment on above: Performed By: #### L 499.0043 #### [facility] [address] [place], [address] Platelet mean volume (Bld) [Entitic vol] 14.0 fL High 6.2-12.0 [facility] Comment on above: Performed By: #### L 499.0043 #### [facility] [address] [place], [address] RBC (Bld) [#/Vol] 5.31 10*6/uL Normal 4.6-6.2 [facility] Comment on above: Performed By: #### L 499.0043 #### [facility] [address] [place], [address] RDW SD 44.7 fl High 35.1-43.9 [facility] Comment on above: Performed By: #### L 499.0043 #### [facility] [address] [place], [address] WBC (Bld) [#/Vol] 5.4 10*3/uL Normal 4.4-11.0 [facility] Comment on above: Performed By: #### L 499.0043 #### [facility] [address] [place], [address] Emergency Department Summary on 08-21-2024 Emergency Department Summary [facility] Medical Records Department [address] [facility] [place] [address] Emergency Department Summary 08/21/24 MR#: [id number] Acct: [id number] Name: ESVIN GUERRIER Jr. Rep #: [id number] : 1960 63 From: Светлана Chance DO PCP: Dr. Sandro Zuniga MD Status:ADM IN Location: ICU ICU02-1 HPI [...] He said no fever or recent illness. [facility] Medical History Smoker Thrombocytopenia Peripheral neuropathy Fractures [...] bowel nikunj (more content not included)... Normal [facility] H AND P Exam - Hospitaliston 08-21-2024 H&P Exam - Hospitalist [facility] Medical Records Department [address] [place] [address] H P Exam - Hospitalist 08/21/24 191 MR#: [id number] Acct: [id number] Name: ESVIN GUERRIER Jr. Rep #: [id number] : 1960 63 From: Zack Snow MD PCP: Dr. Sandro Zuniga MD Status:REG ER Location: ED HPI - General General Date of Admission: 08/21/24 Date of Service: 08/21/24 Chief Complaint: Bright red rectal blood pouring out, started today HPI Narrative ESVIN GUERRIER, is a 63 M with multiple [...] he was airflight transferred to [facility] from [facility] ED As per the daughter, he when [...] CT imaging reviewed discussion assessment and plan. [facility] Medical History Smoker Thrombocytopenia Peripheral neuropathy [...] Cranial nerve (more content not included)... Normal [facility] HH, Hemoglobin AND Hematocri ton 08-21-2024 Hematocrit (Bld) [Volume fraction] 45.9 % Normal 40-54 [facility] Comment on above: Performed By: #### L 505.5000 #### [facility] [address] [place], [address] Hemoglobin (Bld) [Mass/Vol] 15.6 g/dL Normal 13.0-16.5 [facility] Comment on above: Performed By: #### L 505.5000 #### [facility] [address] [place] [place], [address] Lactic Acidon 08-21-2024 Lactate [Moles/Vol] 1.4 mmol/L Normal 0.4-1.9 [facility] Comment on above: Order Comment: Y Performed By: #### L 499.0043 #### [facility] [address] [place], [address] Magnesiumon 08-21-2024 Magnesium [Mass/Vol] 2.0 mg/dL Normal 1.6-2.6 [facility] Comment on above: Performed By: #### L 499.0043 #### [facility] [address] [place], [address] Phosphoruson 08-21-2024 Phosphate [Mass/Vol] 3.1 mg/dL Normal 2.5-4.9 [facility] Comment on above: Performed By: #### L 499.0043 #### [facility] [address] [place], [address] Prothrombin Time w/INRon INR Coag (PPP) [Relative time] 1.0 {INR} Normal [facility] Comment on above: Performed By: #### L 499.0043 #### [facility] [address] [place], [address] PT Coag (PPP) [Time] 13.4 s Normal 11.7-14.9 [facility] Comment on above: Performed By: #### L 499.0043 #### [facility] [address] [place], [address] Type AND Screenon 08-21-2024 ABO and Rh group Nom (Bld) Blood group O Rh(D) positive Normal [facility] Comment on above: Order Comment: HGI Performed By: #### L 505.5000 #### [facility] [address] [place], [address] Absolute lymphocyte countOrd ered By: Sandro Zuniga on 05-05-2023 Lymphocytes Auto (Unsp spec) [#/Vol] 1.70 10*3/uL 0.83-4.51 [facility] Basophil percentageOrdered B y: Sandro Zuniga on 05-05-2023 Basophil percentage 5.288 . [facility] Comment on above: Result Units: log10 IU/mL Basophils/100 WBC (Bld) 0.4 % 0-1 [facility] Bilirubin [Mass/Vol] 0.50 mg/dL 0.20-1.00 [facility] Comment on above: For patients on eltr ombopag therapy, use of Dimension [place] TBIL is not recommended. Chloride [Moles/Vol] 108 mmol/L 98-107 [facility] Eosinophils/100 WBC (Bld) 2.3 % 0-5 [facility] Glucose [Mass/Vol] 101 mg/dL 74-106 [facility] Comment on above: Fasting Glucose resu lt from 100 to 125 mg/dL suggests IMPAIRED HOMEOSTASIS per A.D.A. criteria. Neutrophils (Bld) [#/Vol] 4.4 10*3/uL 2.0-7.7 [facility] Neutrophils/100 WBC (Bld) 63.5 % 47-70 [facility] Potassium [Moles/Vol] 4.4 mmol/L 3.5-5.1 [facility] Protein [Mass/Vol] 7.6 g/dL 6.4-8.2 [facility] Sodium [Moles/Vol] 138 mmol/L 136-145 [facility] WBC (Bld) [#/Vol] 6.9 10*3/uL 4.4-11.0 [facility] Blood erythrocytes count (nu mber/volume)Ordered By: Sandro Zuniga on 05-05-2023 RBC (Bld) [#/Vol] 5.02 10*6/uL 4.6-6.2 [facility] Blood hemoglobin measurement (mass/volume)Ordered By: Sandro Zuniga on 05-05-2023 Hemoglobin (Bld) [Mass/Vol] 15.0 g/dL 13.0-16.5 [facility] Blood lymphocytes/100 leukoc ytesOrdered By: Sandro Zuniga on 05-05-2023 Lymphocytes/100 WBC (Bld) 24.5 % 19-41 [facility] Blood manual differential co mment interpretation (narrative result)Ordered By: Sandro Zuniga on 05-05-2023 Manual differential comment Damaso (Bld) [Interp] SCANNED [facility] Comment on above: THROMBOCYTOPENIA NOT ED Blood monocytes/100 leukocyt esOrdered By: Sandro Zuniga on 05-05-2023 Monocytes/100 WBC (Bld) 8.9 % 0-10 [facility] Blood platelet mean volumeOr dered By: Sandro Zuniga on 05-05-2023 Platelet mean volume (Bld) [Entitic vol] 14.5 fL 6.2-12.0 [facility] Determination of erythrocyte mean corpuscular volume (MCV)Ordered By: Sandro Zuniga on 05-05-2023 MCV (RBC) [Entitic vol] 90.8 fL 80-94 [facility] Hematocrit Auto (Bld) [Volum e fraction]Ordered By: Sandro Zuniga on 05-05-2023 Hematocrit (Bld) [Volume fraction] 45.6 % 40-54 [facility] - Chemistry and C hemistry - challengeOrdered By: Sandro Zuniga on 05-05-2023 ALP [Catalytic activity/Vol] 61 U/L 45-117 [facility] ALT [Catalytic activity/Vol] 38 U/L 16-61 [facility] CO2 [Moles/Vol] 25.0 mmol/L 21.0-32.0 [facility] Globulin (S) [Mass/Vol] 4.2 g/dL 2.2-4.2 [facility] Urea nitrogen/Creatinine [Mass ratio] 16.5 mg/mg 10-20 [facility] - Hematology and Cell countsOrdered By: Sandro Zuniga on 05-05-2023 Erythrocyte distribution width (RBC) [Entitic vol] 42.7 fL 35.1-43.9 [facility] Erythrocyte distribution width (RBC) [Ratio] 13.0 % 11.6-14.6 [facility] Immature granulocytes/100 WBC (Bld) 0.400 % 0.0-0.9 [facility] Comment on above: IG% - Immature Granu locytes (promyelocytes, myelocytes and metamyelocytes) > 1% indicates that a LEFT SHIFT is Present. MCH (RBC) [Entitic mass] 29.9 pg 27.0-32.0 [facility] Nucleated RBC/100 WBC (Bld) [Ratio] 0 % 0-5 [facility] Auto (RBC) [Mass/Vol]Or dered By: Sandro Zuniga on 05-05-2023 MCHC (RBC) [Mass/Vol] 32.9 g/dL 32-36 [facility] No Panel InformationOrdered By: Sandro Zuniga on 05-05-2023 Addendum Document Comment . [facility] Comment on above: The quantitative ran ge of this assay is 15 IU/mL to 100million IU/mL.Performed at: [facility] [address] [id number] Director: Markos Tejada MD, Phone: [phone] Estimated GFR (MDRD) Amer 78 mL/min >60 [facility] Comment on above: GFR Calc Estimated GFR (MDRD) Non-Af Amer 64 mL/min >60 [facility] Comment on above: Non- GFR Calc Platelets bldOrdered By: Aury Zuniga on 05-05-2023 Platelets (Bld) [#/Vol] 55 10*3/uL 150-450 [facility] Serum or plasma albumin rachell urement (mass/volume)Ordered By: Sandro Zuniga on 05-05-2023 Albumin [Mass/Vol] 3.4 g/dL 3.2-5.0 [facility] Serum or plasma albumin/glob ulin mass ratioOrdered By: Sandro Zuniga on 05-05-2023 Albumin/Globulin [Mass ratio] 0.8 {ratio} 0.9-2.4 [facility] Serum or plasma calcium rachell urement (mass/volume)Ordered By: Sandro Zuniga on 05-05-2023 Calcium [Mass/Vol] 8.7 mg/dL 8.5-10.1 [facility] Serum or plasma creatinine m easurement (mass/volume)Ordered By: Sandro Zuniga on 05-05-2023 Creatinine [Mass/Vol] 1.21 mg/dL 0.70-1.30 [facility] Comment on above: The validity of the calculated GFR & GFRAA in patients over 70 years has not been determined. Clinical correlation is essential. Serum or plasma hepatitis C virus RNA measurement by probe and target amplification mOrdered By: Sandro Zuniga on 05-05-2023 HCV RNA KATHERINE+probe Qn [id number] IU/mL . [facility] Serum or plasma urea nitroge n measurement (mass/volume)Ordered By: Sandro Zuniga on 05-05-2023 Urea nitrogen [Mass/Vol] 20 mg/dL 7-18 [facility] Thin prep Papanicolaou smear with manual screeningOrdered By: Sandro Zuniga on 05-05-2023 Thin prep Papanicolaou smear with manual screening 18 U/L 15-37 [facility] Thin prep Papanicolaou smear with manual screening 5 5-15 [facility] Absolute lymphocyte counton 07-21-2022 Lymphocytes Auto (Unsp spec) [#/Vol] 2.12 10*3/uL 0.83-4.51 [facility] Work Phone: Basophil percentageon 2021 Basophils/100 WBC (Bld) 0.3 % 0-1 [facility] Work Phone: Eosinophils/100 WBC (Bld) 3.5 % 0-5 [facility] Work Phone: Neutrophils (Bld) [#/Vol] 3.6 10*3/uL 2.0-7.7 [facility] Work Phone: Neutrophils/100 WBC (Bld) 54.6 % 47-70 [facility] Work Phone: WBC (Bld) [#/Vol] 6.5 10*3/uL 4.4-11.0 [facility] Work Phone: Blood erythrocytes count (nu mber/volume)on 07-21-2022 RBC (Bld) [#/Vol] 4.85 10*6/uL 4.6-6.2 [facility] Work Phone: Blood hemoglobin measurement (mass/volume)on 07-21-2022 Hemoglobin (Bld) [Mass/Vol] 14.8 g/dL 13.0-16.5 [facility] Work Phone: Blood lymphocytes/100 leukoc yteson 07-21-2022 Lymphocytes/100 WBC (Bld) 32.6 % 19-41 [facility] Work Phone: Blood monocytes/100 leukocyt eson 07-21-2022 Monocytes/100 WBC (Bld) 8.8 % 0-10 [facility] [facility] Work Phone: Blood platelet mean volumeon 07-21-2022 Platelet mean volume (Bld) [Entitic vol] 12.4 fL 6.2-12.0 [facility] Work Phone: Determination of erythrocyte mean corpuscular volume (MCV)on 07-21-2022 MCV (RBC) [Entitic vol] 90.1 fL 80-94 [facility] Work Phone: Hematocrit Auto (Bld) [Volum e fraction]on 07-21-2022 Hematocrit (Bld) [Volume fraction] 43.7 % 40-54 [facility] Work Phone: INR in Blood by Coagulation assayon 07-21-2022 INR Coag (Bld) [Relative time] 1.0 {INR} [facility] Work Phone: Laboratory - Coagulationon 0 07-21-2022 aPTT Coag (Bld) [Time] 36.1 s 24.1-36.2 [facility] Work Phone: PT Coag (PPP) [Time] 13.2 s 11.7-14.9 [facility] Work Phone: Laboratory - Hematology and Cell countson 07-21-2022 Erythrocyte distribution width (RBC) [Entitic vol] 41.8 fL 35.1-43.9 [facility] Work Phone: Erythrocyte distribution width (RBC) [Ratio] 12.8 % 11.6-14.6 [facility] Work Phone: Immature granulocytes/100 WBC (Bld) 0.200 % 0.0-0.9 [facility] Work Phone: Comment on above: IG% - Immature Granu locytes (promyelocytes, myelocytes and metamyelocytes) > 1% indicates that a LEFT SHIFT is Present. MCH (RBC) [Entitic mass] 30.5 pg 27.0-32.0 [facility] Work Phone: Nucleated RBC/100 WBC (Bld) [Ratio] 0 % 0-5 [facility] Work Phone: MCHC Auto (RBC) [Mass/Vol]on 07-21-2022 MCHC (RBC) [Mass/Vol] 33.9 g/dL 32-36 [facility] Work Phone: Platelets bldon 07-21-2022 Platelets (Bld) [#/Vol] 59 10*3/uL 150-450 [facility] Work Phone: HIV 1 and HIV-2 antibody ass ay with HIV-1 p24 antigen detectionon 07-13-2022 HIV 1+2 Ab+HIV1 p24 Ag IA Ql Non-Reactive Nonreactive [facility] Work Phone: No Panel Informationon 07-13 Hepatitis C Antibody Preliminary Reactive Nonre active [facility] Work Phone: Comment on above: Non Reactive: < 0.8 Equivocal: >/= 0.8 to < 1.0 Reactive: >/= 1.0The CDC recommends that a reactive/equivocal HCV antibody result be followed up by the HCV Nucleic Acid Amplificationtest (253628) Serum hepatitis B virus surf simona antibody IgG detectionon 07-13-2022 HBV surface IgG Ql (S) Non-Reactive [facility] Work Phone: Comment on above: Non Reactive: Incons istent with immunity less than <10 mIU/mL Reactive: Consistent with immunity greater than or equal to 10 mIU/mL Absolute lymphocyte counton 07-04-2022 Lymphocytes Auto (Unsp spec) [#/Vol] 1.67 10*3/uL 0.83-4.51 [facility] Work Phone: Basophil percentageon 2021 Basophils/100 WBC (Bld) 0.5 % 0-1 [facility] Work Phone: Chloride [Moles/Vol] 106 mmol/L 98-107 [facility] Work Phone: Eosinophils/100 WBC (Bld) 2.6 % 0-5 [facility] Work Phone: Glucose [Mass/Vol] 102 mg/dL 74-106 [facility] Work Phone: Comment on above: Fasting Glucose resu lt from 100 to 125 mg/dL suggests IMPAIRED HOMEOSTASIS per A.D.A. criteria. Neutrophils (Bld) [#/Vol] 3.5 10*3/uL 2.0-7.7 [facility] Work Phone: Neutrophils/100 WBC (Bld) 59.4 % 47-70 [facility] Work Phone: Potassium [Moles/Vol] 4.4 mmol/L 3.5-5.1 [facility] Work Phone: Sodium [Moles/Vol] 138 mmol/L 136-145 [facility] Work Phone: WBC (Bld) [#/Vol] 5.8 10*3/uL 4.4-11.0 [facility] Work Phone: Blood erythrocytes count (nu mber/volume)on 07-04-2022 RBC (Bld) [#/Vol] 4.71 10*6/uL 4.6-6.2 [facility] Work Phone: Blood hemoglobin measurement (mass/volume)on 07-04-2022 Hemoglobin (Bld) [Mass/Vol] 14.6 g/dL 13.0-16.5 [facility] Work Phone: Blood lymphocytes/100 leukoc yteson 07-04-2022 Lymphocytes/100 WBC (Bld) 28.7 % 19-41 [facility] Work Phone: Blood monocytes/100 leukocyt eson 07-04-2022 Monocytes/100 WBC (Bld) 8.3 % 0-10 [facility] Work Phone: Blood platelet adequacy dete ction by light microscopyon 07-04-2022 Platelets LM Ql (Bld) MKD DEC ADEQ [facility] Work Phone: Blood platelet mean volumeon 07-04-2022 Platelet mean volume (Bld) [Entitic vol] 14.7 fL 6.2-12.0 [facility] Work Phone: [phone] Determination of erythrocyte mean corpuscular volume (MCV)on 07-04-2022 MCV (RBC) [Entitic vol] 91.5 fL 80-94 [facility] Work Phone: [phone] Hematocrit Auto (Bld) [Volum e fraction]on 07-04-2022 Hematocrit (Bld) [Volume fraction] 43.1 % 40-54 [facility] Work Phone: [phone] Laboratory - Chemistry and C hemistry - challengeon 07-04-2022 CO2 [Moles/Vol] 27.0 mmol/L 21.0-32.0 [facility] Work Phone: [phone] Urea nitrogen/Creatinine [Mass ratio] 22.0 mg/mg 10-20 [facility] Work Phone: [phone] Laboratory - Hematology and Cell countson 07-04-2022 Anisocytosis Ql (Bld) RARE [facility] Work Phone: [phone] Erythrocyte distribution width (RBC) [Entitic vol] 43.7 fL 35.1-43.9 [facility] Work Phone: [phone] Erythrocyte distribution width (RBC) [Ratio] 13.0 % 11.6-14.6 [facility] Work Phone: [phone] Immature granulocytes/100 WBC (Bld) 0.500 % 0.0-0.9 [facility] Work Phone: [phone] Comment on above: IG% - Immature Granu locytes (promyelocytes, myelocytes and metamyelocytes) > 1% indicates that a LEFT SHIFT is Present. MCH (RBC) [Entitic mass] 31.0 pg 27.0-32.0 [facility] Work Phone: [phone] Nucleated RBC/100 WBC (Bld) [Ratio] 0 % 0-5 [facility] Work Phone: [phone] MCHC Auto (RBC) [Mass/Vol]on 07-04-2022 MCHC (RBC) [Mass/Vol] 33.9 g/dL 32-36 [facility] Work Phone: Macrocytes detectionon 07-04 Macrocytes Ql (Bld) RARE [facility] Work Phone: No Panel Informationon 07-04 Estimated GFR (MDRD) Amer 80 mL/min >60 [facility] Work Phone: Comment on above: GFR Calc Estimated GFR (MDRD) Non-Af Amer 66 mL/min >60 [facility] Work Phone: Comment on above: Non- GFR Calc Prostate Specific Antigen Screen 0.86 ng/mL 0.00-4.00 [facility] Work Phone: Comment on above: This test was perfor med using the TPSA assay method for [employer] chemistry system. Values obtained with differentassay methods cannot be used interchangably.When changing PSA assays in the course of monitoring apatient, additional sequential testing should be carriedout to confirm baseline values. Platelets bldon 07-04-2022 Platelets (Bld) [#/Vol] 50 10*3/uL 150-450 [facility] Work Phone: Comment on above: CRITICAL VALUE VERIF IED. CALLED TO DR BATEMAN FLIGHT MANAGER FOR DR ZUNIGA07/04/22 182 Samuel Thrasher.RESULTS READ BACK BY SAME . RBC morphologyon 07-04-2022 RBC morphology finding Nom (Bld) N CHROM NORMAL NORM C&C [facility] Work Phone: Review by pathologiston 06-14 Pathologist review Damaso (Unsp spec) [Interp] Reviewed [facility] Work Phone: Comment on above: Previous reported re sult: Michela choudhary Edited by: VIOLETA on 07/06/22:1016Marked Thrombocytopenia.Clinical correlation necessary.Carlos A Ulloa M.D. 07/06/22 AMENDED REPORT 07/06/22 1016 PATH REV previously reported as: Michela choudhary Serum or plasma calcium rachell urement (mass/volume)on 07-04-2022 Calcium [Mass/Vol] 9.1 mg/dL 8.5-10.1 [facility] Work Phone: Serum or plasma creatinine m easurement (mass/volume)on 07-04-2022 Creatinine [Mass/Vol] 1.18 mg/dL 0.70-1.30 [facility] Work Phone: Comment on above: The validity of the calculated GFR & GFRAA in patients over 70 years has not been determined. Clinical correlation is essential. Serum or plasma urea nitroge n measurement (mass/volume)on 07-04-2022 Urea nitrogen [Mass/Vol] 26 mg/dL 7-18 [facility] Work Phone: Thin prep Papanicolaou smear with manual screeningon 07-04-2022 Thin prep Papanicolaou smear with manual screening 5 5-15 [facility] Work Phone: Vital Signs Date Time Vital Sign Value Performing Clinician Facility 08-08-2025 12:40-0400 Diastolic blood pressure 80 mm[Hg] Fernando Ugalde MD Work Phone: [facility] 08-08-2025 12:40-0400 Heart rate 77 /min Fernando Ugalde MD Work Phone: [facility] 08-08-2025 12:40-0400 Respiratory rate 23 /min Fernando Ugalde MD Work Phone: [facility] 08-08-2025 12:40-0400 SaO2% (BldA) [Mass fraction] 96 % Fernando Ugalde MD Work Phone: [facility] 08-08-2025 12:40-0400 Systolic blood pressure 170 mm[Hg] Fernando Ugalde MD Work Phone: [facility] 08-08-2025 11:20-0400 Body temperature 97.59 [degF] Fernando Ugalde MD Work Phone: [facility] 08-04-2025 10:43-0400 Body height 177.8 cm Fernando Ugalde MD Work Phone: [facility] 08-04-2025 10:43-0400 Body mass index (BMI) [Ratio] 30.78 kg/m2 Fernando Ugalde MD Work Phone: [facility] 08-04-2025 10:43-0400 Body weight 97.3 kg Fernando Ugalde MD Work Phone: [facility] 08-03-2025 08:16-0400 Diastolic blood pressure 96 mm[Hg] No Primary Care Physician [facility] 08-03-2025 08:16-0400 Heart rate 64 /min No Primary Care Physician [facility] 08-03-2025 08:16-0400 Respiratory rate 16 /min No Primary Care Physician [facility] 08-03-2025 08:16-0400 Systolic blood pressure 186 mm[Hg] No Primary Care Physician [facility] 08-03-2025 08:10-0400 SaO2% (BldA) [Mass fraction] 98 % No Primary Care Physician [facility] 08-03-2025 07:52-0400 Body temperature 97.4 [degF] No Primary Care Physician [facility] 08-03-2025 07:28-0400 Body height 182.88 cm No Primary Care Physician [facility] 08-03-2025 07:28-0400 Body mass index (BMI) [Ratio] 28.8 kg/m2 No Primary Care Physician [facility] 08-03-2025 07:28-0400 Body weight 96.4 kg No Primary Care Physician [facility] 06-28-2023 11:44-0400 Body mass index (BMI) [Ratio] 23.3 kg/m2 [facility] 06-28-2023 11:44-0400 Body weight 76.[address] [facility] 06-28-2023 10:16-0400 Body height 180.[address] [facility] 06-28-2023 10:16-0400 Body temperature 98 [degF] [facility] 06-28-2023 10:16-0400 Diastolic blood pressure 123 mm[Hg] [facility] 06-28-2023 10:16-0400 Heart rate 81 /min [facility] 06-28-2023 10:16-0400 Respiratory rate 14 /min [facility] 06-28-2023 10:16-0400 SaO2% (BldA) [Mass fraction] 98 % [facility] 06-28-2023 10:16-0400 Systolic blood pressure 183 mm[Hg] [facility] 07-21-2022 11:00-0400 Diastolic blood pressure 97 mm[Hg] No Primary Care Physician [facility] Work Phone: 07-21-2022 11:00-0400 Heart rate 60 /min No Primary Care Physician [facility] Work Phone: 07-21-2022 11:00-0400 Respiratory rate 16 /min No Primary Care Physician [facility] Work Phone: 07-21-2022 11:00-0400 SaO2% (BldA) [Mass fraction] 100 % No Primary Care Physician [facility] Work Phone: 07-21-2022 11:00-0400 Systolic blood pressure 152 mm[Hg] No Primary Care Physician [facility] Work Phone: 07-21-2022 10:04-0400 Inhaled oxygen flow rate 2 L/min No Primary Care Physician [facility] Work Phone: 07-21-2022 08:31-0400 Body height 182.88 cm No Primary Care Physician [facility] Work Phone: 07-21-2022 08:31-0400 Body mass index (BMI) [Ratio] 24.7 kg/m2 No Primary Care Physician [facility] Work Phone: 07-21-2022 08:31-0400 Body temperature 97.5 [degF] No Primary Care Physician [facility] Work Phone: 07-21-2022 08:31-0400 Body weight 82.55 kg No Primary Care Physician [facility] Work Phone: 07-13-2022 14:57-0400 Body mass index (BMI) [Ratio] 24 kg/m2 No Primary Care Physician [facility] Work Phone: 07-13-2022 14:57-0400 Body weight 82.61 kg No Primary Care Physician [facility] Work Phone: Encounters Encounter Date Encounter Type Care Provider Facility Start: 08-26-2025 ambulatory PAUL Rodriguezi ty:[facility] Start: 08-14-2025 ambulatory No Primary Car e Physician Facility:[facility] Start: 08-03-2025 End: 08-03-2025 ambulatory UNKNOWN PROVIDER Facility:[facility] Start: 08-03-2025 End: 08-08-2025 Evaluation and management of inpatient Fernando Ugalde MD Work Phone: [phone] Comment on above: [facility] Start: 08-03-2025 End: 08-03-2025 Emergency department patient visit Dr. Lissette Ramos MD -Emergency Department Work Phone: Start: 11-25-2024 ambulatory No Primary Car e Physician Facility:[facility] Start: 10-31-2024 ambulatory [facility] Facility :[facility] Start: 09-13-2024 End: 09-13-[address] [facility] Friend Facility:[facility] Start: 08-21-2024 End: 08-22-2024 ambulatory No Primary Care Physician Facility:[facility] Start: 06-28-2023 End: 06-28-2023 Emergency department patient visit [facility]-Emergency Department Work Phone: Start: 05-05-2023 End: 05-05-2023 ambulatory [facility] Work Phone: Start: 05-05-2023 End: 05-05-2023 Patient encounter procedure [facility] Start: 07-21-2022 End: 07-21-2022 ambulatory No Primary Care Physician [facility] Work Phone: Start: 07-21-2022 End: 09-08-2022 Patient encounter procedure No Primary Care Physician [facility]-Cat Scan, [facility] Start: 07-13-2022 Registered Recurring No Primar y Care Physician [facility] Start: 07-13-2022 End: 07-13-2022 Patient encounter procedure No Primary Care Physician [facility] Start: 07-04-2022 End: 07-04-2022 Patient encounter procedure No Primary Care Physician [facility]-Laboratory, [facility] Procedures Date Procedure Procedure Detail Performing Clinician Start: 08-08-2025 CARDIAC RHYTHM Other Ot her OT Start: 08-08-2025 Creatinine blood Damien Clemens Charles SENIOR CLINICAL DATA COORDINATOR-FLIGHT MANAGER Work Phone: Start: 08-07-2025 Assay of urea nitrog en quantitative Dalila Clemens Melvin SENIOR CLINICAL DATA COORDINATOR-FLIGHT MANAGER Work Phone: Start: 08-06-2025 Creatinine blood Damien Clemens Melvin SENIOR CLINICAL DATA COORDINATOR-FLIGHT MANAGER Work Phone: Start: 08-05-2025 FLEXIBLE ENDOSCOPIC EVALUATION OF SWALLOWING Dalila M Melvin SENIOR CLINICAL DATA COORDINATOR-FLIGHT MANAGER Work Phone: Start: 08-05-2025 Glucose measurement, blood Ivan Marquez MD Work Phone: Start: 08-05-2025 Assay of magnesium Chri rayshawn Clemens Melvin SENIOR CLINICAL DATA COORDINATOR-FLIGHT MANAGER Work Phone: Start: 08-04-2025 Glucose measurement, blood Ivan Marquez MD Work Phone: Start: 08-04-2025 Glucose measurement, blood Ivan Marquez MD Work Phone: Start: 08-04-2025 Mri brain brain stem w/o w/contrast material Daisy Shelton SENIOR CLINICAL DATA COORDINATOR-FLIGHT MANAGER Work Phone: Start: 08-04-2025 Us abdominal real ti me w/image limited Patricia QUIÑONESC Work Phone: Start: 08-04-2025 Ct head/brain w/o co ntrast material Patricia Burton PA-C Work Phone: Start: 08-04-2025 End: 08-04-2025 Glucose measurement, blood Ivan Marquez MD Work Phone: Start: 08-04-2025 Hepatitis b surf ant ibody hbsab Patricia S Pohlabel PA-C Work Phone: Start: 08-04-2025 Iadna hepatitis c qu ant & reverse supervisor pigment making Patricia Yasmin Pohlabel PA-C Work Phone: Start: 08-04-2025 Echo tthrc r-t 2d w/ wom-mode compl spec&colr d Dalila Charles SENIOR CLINICAL DATA COORDINATOR-FLIGHT MANAGER Work Phone: Start: 08-04-2025 Blood count platelet automated Mauricio Barahona SENIOR CLINICAL DATA COORDINATOR-FLIGHT MANAGER Work Phone: Start: 08-04-2025 End: 08-04-2025 Plateletpheresis Mauricio Barahona SENIOR CLINICAL DATA COORDINATOR-FLIGHT MANAGER Work Phone: Start: 08-04-2025 Glucose measurement, blood Mateo Santiago MD, PhD Work Phone: Start: 08-04-2025 Blood count platelet automated Mauricio Amato Jun SENIOR CLINICAL DATA COORDINATOR-FLIGHT MANAGER Work Phone: Start: 08-04-2025 End: 08-04-2025 Plateletpheresis Mauricio Barahona SENIOR CLINICAL DATA COORDINATOR-FLIGHT MANAGER Work Phone: Start: 08-04-2025 Assay of magnesium Chri rayshawn Charles SENIOR CLINICAL DATA COORDINATOR-FLIGHT MANAGER Work Phone: Start: 08-04-2025 Iadna hepatitis c qu ant & reverse supervisor pigment making Daisy Shelton SENIOR CLINICAL DATA COORDINATOR-FLIGHT MANAGER Work Phone: Start: 08-03-2025 Glucose measurement, blood Ivan Marquez MD Work Phone: Start: 08-03-2025 End: 08-03-2025 Plateletpheresis Daisy Shelton SENIOR CLINICAL DATA COORDINATOR-FLIGHT MANAGER Work Phone: Start: 08-03-2025 ALCOHOL (ETHANOL),BLOOD Daisy Shelton SENIOR CLINICAL DATA COORDINATOR-FLIGHT MANAGER Work Phone: Start: 08-03-2025 Glucose measurement, blood Ivan Marquez MD Work Phone: Start: 08-03-2025 Blood count platelet automated Daisy Shelton SENIOR CLINICAL DATA COORDINATOR-FLIGHT MANAGER Work Phone: Start: 08-03-2025 Ct head/brain w/o co ntrast material Fernando Ugalde MD Work Phone: Start: 08-03-2025 Artl cathj/cannulj mntr/transfusion spx prq Dalila Charles SENIOR CLINICAL DATA COORDINATOR-FLIGHT MANAGER Work Phone: Start: 08-03-2025 End: 08-03-2025 Plateletpheresis Broderick Ledezma MD Work Phone: Start: 08-03-2025 Glucose measurement, blood Ivan Marquez MD Work Phone: Start: 08-03-2025 Antibody screen Fernando chanel MD Work Phone: Start: 08-03-2025 Antibody screen PAUL LYNN Comment on above: Performed By: #### L [id number] #### [facility] ([facility]) [address] [place] [address] Start: 08-03-2025 CBC AND ELECTRONIC DIFF Fernando Ugalde MD Work Phone: Start: 08-03-2025 Complete blood count with white cell differential, automated Fernando Ugalde MD Work Phone: Start: 08-03-2025 GOLD TOP TUBE Fernando chanel MD Work Phone: Start: 08-03-2025 Hemoglobin glycosylated a1c Dalila Charles SENIOR CLINICAL DATA COORDINATOR-FLIGHT MANAGER Work Phone: Start: 08-03-2025 End: 08-03-2025 Hepatic function panel Fernando Ugalde MD Work Phone: Start: 08-03-2025 LAVENDER TOP TUBE Fernando Ugalde MD Work Phone: Start: 08-03-2025 LT BLUE TOP TUBE Fernando Ugalde MD Work Phone: Start: 08-03-2025 MINT GREEN TOP TUBE Oren Ugalde MD Work Phone: Start: 08-03-2025 PREPARE TO TRANSFUSE PLATELET Broderick Ledezma MD Work Phone: Start: 08-03-2025 RAINBOW DRAW Fernando jensen MD Work Phone: Start: 08-03-2025 Ecg routine ecg w/le ast 12 lds trcg only w/o i&r Dalila Charles SENIOR CLINICAL DATA COORDINATOR-FLIGHT MANAGER Work Phone: Start: 08-03-2025 End: 08-03-2025 Ct head/brain w/o contrast material Fernando Ugalde MD Work Phone: Start: 08-03-2025 CT angiography of he ad and neck No Primary Care Physician Start: 08-03-2025 CT of head without contrast No Primary Care Physician Start: 08-03-2025 Estimated creatinine clearance No Primary Care Physician Start: 08-03-2025 Lipid 1996 panel - S dino or Plasma Fernando Ugalde MD Work Phone: Start: 06-28-2023 Plain x-ray of pelvi s and lower extremity Start: 07-21-2022 Biopsy/Inj or Needle Placement No Primary Care Physician Plan of Treatment Date Care Activity Detail Author Start: 08-23-2031 Tetanus vaccination TETANUS [facility] Start: 08-03-2030 Lipid panel LIPID SCREENING [facility] Start: 08-26-2025 End: 08-26-2025 Patient encounter procedure 08/26/2025 10:40 AM EDT Office Visit [facility] [address] [id number] Paola Quintana MD [address] [place] [id number] [facility] [place] Start: 08-26-2025 End: 08-26-2025 Patient encounter procedure 08/26/2025 9:15 AM EDT Appointment Imaging [facility] [address] [place] [address] Paul Lynn MD [address] [facility] [address] [place] [address] Imaging [facility] Start: 08-20-2025 End: 08-06-2026 CT Head WO contrast CT HEAD WITHOUT CONTRAST Imaging Routine Hemorrhagic stroke Expected: 08/20/2025, Expires: 08/06/[address] [facility] Comment on above: Expected: 08/20/2025 , Expires: 08/06/2026 Start: 08-03-2025 End: 08-03-2025 [facility] Start: 07-14-2025 COVID-19 VACCINE ( season) COVID-19 VACCINE ( season) [facility] Start: 07-14-2025 Influenza vaccination INFLUENZA VACC INE (#1) [facility] Start: 2024 Abdominal aortic ane urysm screening ABDOMINAL AORTIC ANEURYSM HIGH RISK SCREEN [facility] Start: 07-21-2022 Diagnostic bone lara ow biopsies & aspirations DX BONE MARROW BX & ASPIR [facility] Work Phone: Start: 07-21-2022 Following clinical pathway protocol [facility] Work Phone: Start: 07-21-2022 Catheterization of vein [facility] Work Phone: Start: 07-21-2022 Oxygen therapy [facility] Work Phone: Start: 07-21-2022 Patient discharge [facility] Work Phone: Start: 07-21-2022 Vital signs measurements [facility] Work Phone: Start: 2019 Hepatitis B vaccination HEP B VACCINE (1 of 3 - Risk 3-dose series) [facility] Start: 2019 RSV VACCINE (1 - Ris k 60-74 years 1-dose series) RSV VACCINE (1 - Risk 60-74 years 1-dose series) [facility] Start: 08-19-2016 Screening for malign ant neoplasm of colon COLORECTAL CANCER SCREENING DISCUSSION [facility] Start: 2014 Prostate specific an tigen measurement PROSTATE CANCER SCREENING DISCUSSION [facility] Start: 2009 Zoster vaccine hzv l lalito for subcutaneous use ZOSTER (SHINGLES) VACCINE (1 of 2) [facility] Start: 1978 Pneumococcal vaccination PNEUM OCOCCAL VACCINE SERIES (1 of 2 - PCV) [facility] Bone marrow biopsy, needle or trocar [facility] Work Phone: Patient Education [facility] Work Phone: Patient referral [facility] Work Phone: Immunizations Immunization Date Immunization Notes Care Provider Fa cility 11-15-2021 influenza virus vaccine, unspecified formulation Fernando Ugalde MD Work Phone: [facility] 08-23-2021 Covid (Bruno & Bruno) No [facility] Care Physician [facility] [facility]2021 tetanus toxoid, redu efrain diphtheria toxoid, and acellular pertussis vaccine, adsorbed No Primary Care Physician [facility] 10-06-2020 Seasonal, quadrivale nt, recombinant, injectable influenza vaccine, preservative free Fernando Ugadle MD Work Phone: [facility] 07-14-2014 Influenza virus vaccine No P rimary Care Physician [facility] Payers Date Payer Category Payer Self-pay [id number] 2024 Unknown [id number] 2020 Medicaid (Managed Care) [facility] Medicaid [id number] [facility] MyCare Medic are RX [id number] 2020 Unknown [id number] 2015 Medicare MEDICARE PART A B [id number] 1959 Unknown [id number] 1959 Unknown [id number] 1959 Unknown [id number] 594 Unknown [id number] 462 Unknown [id number] 462 Unknown [id number] 462 Unknown [id number] 462 Unknown [id number] 462 Unknown [id number] 462 Unknown [id number] 462 Unknown [id number] 462 Social History Date Type Detail Facility Start: 07-21-2022 End: 06-28-2023 Tobacco smoking status ILIS Unknown if ever smoked [facility] Start: 12-31-2013 None [facility] Start: 12-31-2013 Spouse/ Signif icant Other [facility] Start: 10-04-2020 Cigarettes [facility] Start: 1960 Sex Assigned At Male W [facility] Start: 08-03-2025 End: 08-03-2025 Tobacco smoking status NHIS Smokes tobacco daily [facility] Work Phone: History of tobacco use Cigarette Smoker [facility] Start: 08-04-2025 Alcoholic beverage intake Current drinker of alcohol (finding) [facility] Start: 08-03-2025 End: 08-04-2025 History of Social function [facility] Start: 08-03-2025 End: 08-04-2025 Tobacco use panel [facility] Work Phone: How often to you hav e a drink containing alcohol? 2-3 time sa week [facility] How many standard drinks containing alcohol do you have on a typical day? 3 or [address] [facility] How often do you hav e 6 or more drinks on 1 occasion? Patient unable to answer [facility] Start: 1960 Sex assigned at Not on file [facility] Start: 10-04-2020 Sex Male (finding) [facility] Functional Status Date Assessment Result Facility 08-07-2025 Are you deaf, or do you have serious difficulty hearing Yes 08/07/2025 10:10 PM EDT Lashawn Gonzalez, CARLITOS Yes [facility] 08-07-2025 Are you blind, or do you have serious difficulty seeing, even when wearing glasses No 08/07/2025 10:10 PM EDT Lashawn Gonzalez, CARLITOS No [facility] 08-07-2025 Do you have serious difficulty walking or climbing stairs Yes 08/07/2025 10:10 PM EDT Lashawn Gonzalez, CARLITOS Yes [facility] 08-07-2025 Do you have difficul ty dressing or bathing Yes 08/07/2025 10:10 PM EDT Lashawn Gonzalez, CARLITOS Yes [facility] 08-07-2025 Because of a physica l, mental, or emotional condition, do you have difficulty doing errands alone such as visiting a physician's office or shopping Yes 08/07/2025 10:10 PM EDT Lashawn Gonzalez, CARLITOS Yes [facility] 08-03-2025 Total score [AUDIT-C] -1 025 6:03 PM EDT Dalila Charles, SENIOR CLINICAL DATA COORDINATOR-FLIGHT MANAGER [facility] Mental Status Date Assessment Result Facility 08-07-2025 Because of a physica l, mental, or emotional condition, do you have serious difficulty concentrating, remembering, or making decisions No 08/07/2025 10:10 PM EDT Lashawn Gonzalez RN No [facility] 08-03-2025 Cognitive function Voice/Name [facility] Work Phone: 07-21-2022 Cognitive function Voice/Name;To [facility]/[place] [facility] Work Phone: Clinical Notes 08-22-2024 to 08-08-2025 Plan of Care - Mia Zaragoza RN - 08/08/2025 4:30 PM EDTPlan of Care - Mia Zaragoza RN - 08/08/2025 4:30 PM EDTNursing Notes - Mia Zaragoza RN - 08/08/2025 4:27 PM EDT Note Date & Type Note Facility 08-08-2025 Plan of care note Problem: OT - ADLs Goal: Lower Body Dressing - Patient will complete lower body dressing tasks with contact guard assistance using adaptive equipment/compensatory strategies as needed for improved ability to complete self-care activities. Outcome: Adequate for Discharge Goal: Grooming - Patient will complete grooming in standing with minimal assistance for improved ability to safely complete ADLs. Outcome: Adequate for Discharge Goal: Bathing - Patient will perform full body bathing routine with minimal assistance while seated for improved ability to complete self-care activities Outcome: Adequate for Discharge Problem: OT - Transfers Goal: Transfers Sit/Stand - Patient will demonstrate good safety awareness during sit to/from stand functional transfer with supervision assistance and least restrictive device to demonstrate safe functional transfers. Outcome: Adequate for Discharge Problem: OT - Balance Goal: Balance - Standing - Patient will perform 10 minutes of functional task in standing with supervisionassistance and good balance to promote safety and improved balance required for self-care activities. Outcome: Adequate for Discharge Problem: OT - Vision Goal: Visual Scanning ADL - Patient will employ use of visual compensatory strategies with no greater than min cues in 5/5 trials to increase participation and safety in ADLs. Outcome: Adequate for Discharge Problem: PT - General Goals Goal: Supine <-> Sit Transfers - Patient will perform supine to/from sit transfers with modified independence and without use of hospital bed features in order to improve functional mobility and safety. Outcome: Adequate for Discharge Goal: Sit <-> Stand Transfers - Patient will perform sit to/from stand transfers with standby assistance and least restrictive device in order to improve functional mobility and safety. Outcome: Adequate for Discharge Goal: Stand/Squat Pivot Transfers - Patient will perform stand pivot transfer to/from bed/chair/commode with standby assistance and least restrictive device in order to improve functional mobility and safety. Outcome: Adequate for Discharge Goal: Ambulation - Patient will ambulate 75 feet with standby assistance and least restrictive device to improve ability to safely navigate home and community. Outcome: Adequate for Discharge Problem: BOAT RIGGER - Cognition Goal: Metacognition - Patient will identify at least 3 deficits related to medical condition and how deficits will impact ability to return home with fading cues to improve safety and independence Outcome: Adequate for Discharge Goal: Ongoing Assessment - Patient will participate in ongoing dynamic assessment of reading, writing, and cognitive-linguistic skills across 1 session to better assess deficits and most appropriately guide BOAT RIGGER plan of care Outcome: Adequate for Discharge Problem: BOAT RIGGER - Motor Speech Goal: Intelligibility Strategies - Patient will teach back and utilize intelligibility strategies in structure and in conversation to improve intelligibility to at least 80%, with minimal cues Outcome: Adequate for Discharge Problem: Dysphagia Goal: Challenge - Pt will accept trials of thin liquids (independently and with liquid wash of regular), given min cues for use of strategies to improve bolus timing of swallow initiation with no signs of aspiration to determine readiness for advancement Outcome: Adequate for Discharge Goal: Patient will complete 2 sets of 5 Jaw Opening Exercise (KEMAL) to improve the suprahyoid muscle strength and hyolaryngeal elevation with min cues over 1-2 weeks. Outcome: Adequate for Discharge Goal: Shaker/CTAR - Patient will complete 30 reps x 3 sets, 60 sec rest break between sets followed by 60 second hold x3 sets, 60 sec rest break between sets of CTAR or Shaker exercise for improved hyoid excursion given minimal cues Outcome: Adequate for Discharge Problem: Oral Intake Inadequate Goal: Improved Oral Intake Outcome: Adequate for Discharge Problem: Fall Injury Risk Goal: Fall/Trauma/Injury Risk: Absence of Trauma/Injury/Falls Description: Patient will demonstrate the desired outcomes. Outcome: Adequate for Discharge [facility] 08-08-2025 Miscellaneous Notes Problem: OT - ADLs Goal: Lower Body Dressing - Patient will complete lower body dressing tasks with contact guard assistance using adaptive equipment/compensatory strategies as needed for improved ability to complete self-care activities. Outcome: Adequate for Discharge Goal: Grooming - Patient will complete grooming in standing with minimal assistance for improved ability to safely complete ADLs. Outcome: Adequate for Discharge Goal: Bathing - Patient will perform full body bathing routine with minimal assistance while seated for improved ability to complete self-care activities Outcome: Adequate for Discharge Problem: OT - Transfers Goal: Transfers Sit/Stand - Patient will demonstrate good safety awareness during sit to/from stand functional transfer with supervision assistance and least restrictive device to demonstrate safe functional transfers. Outcome: Adequate for Discharge Problem: OT - Balance Goal: Balance - Standing - Patient will perform 10 minutes of functional task in standing with supervisionassistance and good balance to promote safety and improved balance required for self-care activities. Outcome: Adequate for Discharge Problem: OT - Vision Goal: Visual Scanning ADL - Patient will employ use of visual compensatory strategies with no greater than min cues in 5/5 trials to increase participation and safety in ADLs. Outcome: Adequate for Discharge Problem: PT - General Goals Goal: Supine <-> Sit Transfers - Patient will perform supine to/from sit transfers with modified independence and without use of hospital bed features in order to improve functional mobility and safety. Outcome: Adequate for Discharge Goal: Sit <-> Stand Transfers - Patient will perform sit to/from stand transfers with standby assistance and least restrictive device in order to improve functional mobility and safety. Outcome: Adequate for Discharge Goal: Stand/Squat Pivot Transfers - Patient will perform stand pivot transfer to/from bed/chair/commode with standby assistance and least restrictive device in order to improve functional mobility and safety. Outcome: Adequate for Discharge Goal: Ambulation - Patient will ambulate 75 feet with standby assistance and least restrictive device to improve ability to safely navigate home and community. Outcome: Adequate for Discharge Problem: BOAT RIGGER - Cognition Goal: Metacognition - Patient will identify at least 3 deficits related to medical condition and how deficits will impact ability to return home with fading cues to improve safety and independence Outcome: Adequate for Discharge Goal: Ongoing Assessment - Patient will participate in ongoing dynamic assessment of reading, writing, and cognitive-linguistic skills across 1 session to better assess deficits and most appropriately guide BOAT RIGGER plan of care Outcome: Adequate for Discharge Problem: BOAT RIGGER - Motor Speech Goal: Intelligibility Strategies - Patient will teach back and utilize intelligibility strategies in structure and in conversation to improve intelligibility to at least 80%, with minimal cues Outcome: Adequate for Discharge Problem: Dysphagia Goal: Challenge - Pt will accept trials of thin liquids (independently and with liquid wash of regular), given min cues for use of strategies to improve bolus timing of swallow initiation with no signs of aspiration to determine readiness for advancement Outcome: Adequate for Discharge Goal: Patient will complete 2 sets of 5 Jaw Opening Exercise (KEMAL) to improve the suprahyoid muscle strength and hyolaryngeal elevation with min cues over 1-2 weeks. Outcome: Adequate for Discharge Goal: Shaker/CTAR - Patient will complete 30 reps x 3 sets, 60 sec rest break between sets followed by 60 second hold x3 sets, 60 sec rest break between sets of CTAR or Shaker exercise for improved hyoid excursion given minimal cues Outcome: Adequate for Discharge Problem: Oral Intake Inadequate Goal: Improved Oral Intake Outcome: Adequate for Discharge Problem: Fall Injury Risk Goal: Fall/Trauma/Injury Risk: Absence of Trauma/Injury/Falls Description: Patient will demonstrate the desired outcomes. Outcome: Adequate for Discharge Patient left unit in wheelchair with spouse and staff..Mia Zaragoza RN AVS reviewed thoroughly with patient and spouse. Both patient and spouse expressed understanding. A/w ride Mia Zaragoza RN Neurovascular Update Note Came to bedside to speak with the patient and his regarding discharge. Patient's BP has remained elevated with systolics 150s-160s overnight and this morning. Increased Nifedippine dose this morning from 30 mg to 60 mg daily. Most recent blood pressure was 176/90, but patient also upset about potential to remain admitted due to elevated blood pressures. Spoke to patient and his that we recommend remaining admitted to ensure blood pressures are adequately controlled, especially as we have been increasing medication daily. However, also acknowledge that he has been frustrated and uncomfortable with continued admission which also elevates his blood pressure. Family insist that his blood pressure will improve if he is discharged as he is now upset about possibility of staying admitted another night. Discussed risks of elevated blood pressure without adequate management, including recurrence of intracranial hemorrhage, with patient and his . Encouraged them to continue to check blood pressure regularly at home, at least twice per day, and to keep a log of the blood pressure readings. Discussed that Esvin should establish care with a primary care doctor as soon as possible for continued blood pressure management as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 Co-Eval/Treatment Information Co-evaluation/co-treatment performed?: No simultaneous skilled care performed PPE used during patient interaction: gloves Patient location at end of session: bed with head of bed elevated Alarms on at end of session: none altered Needs in reach. Time In: 1025 Time Out: 1043 Total Visit Time: 18 minutes Total Treatment Time (skilled, billable minutes): 18 minutes Upon discontinuation of Acute Care Occupational Therapy Services or patient discharge from the hospital this note represents the current Occupational Therapy Discharge Summary. Acute Physical Therapy Treatment Prior Gross Functional Mobility: used device Current AM-PAC score(s): CURRENT AM-PAC Mobility Raw Score: 17 Based on the above AM-PAC score(s) and PT clinical judgment, patient is a good candidate for discharge to Residential Facility Barriers to discharge home: Lack of 1st floor bedroom while patient is unable to safely navigate stairs, Patient needs assistance with medication management, Patient needs assistance with IADLs (see note below) Mobility equipment available at home: ADL equipment available at home: Equipment needed for discharge: to be determined Current therapy frequency recommendation in acute: PT Therapy Frequency: 5 times a week Activity Recommendations for outside of rehab session: Transfer to/from chair/BSC x1 person assist vitals permitting Precautions and Weightbearing Status: Existing Precautions/Restrictions: fall Lines/Tubes/Drains (Rehab Status): Telemetry, Arterial line Patient Safety Communication Prior to Visit: Nursing Subjective: Pt's SO states He does better with hearing you if he can see your face when you're talking., He goes by Bug. Pain: General Pain Documentation (Adult, OB, Peds) Presence of Pain: denies pain/discomfort Presence of Pain Score (Auto-calculated): 0 Objective/Observation: Vitals/Vitals Responses to Treatment: BP supine: 181/97, RN made aware and BP medication requested BP sitting EOB: 190/101, RN present to give IV and oral BP meds and cleared transfer to chair for breakfast BP after transfer to chair: 197/109 O2 Device: room air Cognition Overall Cognitive Status: Impaired Arousal/Alertness: Delayed responses to stimuli Orientation Level: Oriented to person, Oriented to place, Oriented to time Extremity Assessments: See PT Evaluation flowsheet for Extremity Measurement updates. Sitting Balance Static Sitting-Level of Assistance: Supervision Dynamic Sitting-Level of Assistance: Standby Skilled Rationale: Full extension to upright positioning/posture, Verbal cues Sitting Balance Skilled Intervention/Details: Facilitation of upright trunk posture for improved sitting balance. Standing Balance Static Standing-Level of Assistance: Minimum assistance Dynamic Standing-Level of Assistance: Minimum assistance Standing-Balance Support: Gait belt Skilled Rationale: Full extension to upright positioning/posture Standing Balance Skilled Intervention/Details: Facilitation of upright trunk posture in standing for improved balance and iproved ability to safely respond to perturbations. Mobility Assessment/Intervention: Supine to Sit Mobility Benton Level: Supine->Sit: minimum assist (75% patient effort) Bed Features/Set-up: Supine->Sit: Head of bed elevated Skilled Rationale: Hand placement, Verbal cues, Technique of activity Skilled Intervention/Details: Supine->Sit: Facilitated supine to sit transfer with cues for correct hand placement without carryover Transfer Assessment/Intervention: Sit to Stand Transfer Benton Level: Sit->Stand: minimum assist (75% patient effort) Assistive Device: Sit->Stand: gait belt Skilled Rationale: Sequencing, Hand placement, Verbal cues Skilled Intervention/Details: Sit->Stand: Guided patient through safe sit to stand transfer with verbal cues to push off of support surface with at least one hand. Stand to Sit Transfer Benton Level: Stand->Sit: minimum assist (75% patient effort) Assistive Device: Stand->Sit: gait belt Skilled Rationale: Verbal cues, Hand placement, Controlled descent for sitting Skilled Intervention/Details: Stand->Sit: Guided patient through safe stand to sit transfer with verbal cues to feel surface on back of legs and reach back for intended surface with at least one hand to ensure close proximity. Verbal cues given for improved eccentric control of descent to avoid abrupt sitting with excess force with no carryover. Bed-Chair Transfer Benton Level: Bed<->Chair: minimum assist (75% patient effort) Assistive Device: Bed<->Chair: gait belt Skilled Rationale: Sequencing, Verbal cues Skilled Intervention/Details: Bed<->Chair: Guided pt though sequencing of pivoting steps to chair on R side Gait/Functional Mobility Assessment/Intervention: Gait Assessment Benton Level: Gait: minimum assist (75% patient effort) Assistive Device: Gait: gait belt, hand held assist Ambulation Distance (Feet): 2 (2' to chair) Gait Deviations Identified: decreased step length, decreased heel strike, decreased gait speed, shuffling Gait Skilled Rationale: verbal, tactile Skilled Intervention/Details - Gait: Facilitated pivoting steps to chair on R with cues for sequencing and upright posture Stairs Assessment/Intervention: CURRENT [facility] Basic Mobility Inpatient Short Form Turning over in bed: 3 - A Little Assistance Moving from lying on back to sittin - A Little Assistance Moving to and from bed to chair: 3 - A Little Assistance Sitting/standing from chair: 3 - A Little Assistance Walk in hospital room: 3 - A Little Assistance Climbing 3-5 steps with a railin - A Lot of Assistance CURRENT [facility] Mobility Raw Score: 17 CURRENT [facility] Mobility Functional Limitation: 50.57% Impaired in Basic Mobility Assessment & Plan: Pt is making progress towards their established goals. The pt was able to progress independence transfers. Pt is primarily limited by impaired functional strength, impaired dynamic balance, and impaired functional endurance. Continued skilled PT recommended to address their impairments and progress towards their functional goals and maximize functional return. Patient Instruction/Education this session: Learners: Patient Education provided: Activity outside of therapy, Discharge recommendations, Fall precautions Plan for next session: progress transfers and ambulation as vitals permit Acute PT Goals Plan of Care by Mary Ingram PT at 08/06/2025 9:34 AM Version 1 of 1 Problem: PT - General Goals Goal: Supine <-> Sit Transfers - Patient will perform supine to/from sit transfers with modified independence and without use of hospital bed features in order to improve functional mobility and safety. Outcome: Progressing Goal: Sit <-> Stand Transfers - Patient will perform sit to/from stand transfers with standby assistance and least restrictive device in order to improve functional mobility and safety. Outcome: Progressing Goal: Stand/Squat Pivot Transfers - Patient will perform stand pivot transfer to/from bed/chair/commode with standby assistance and least restrictive device in order to improve functional mobility and safety. Outcome: Progressing Goal: Ambulation - Patient will ambulate 75 feet with standby assistance and least restrictive device to improve ability to safely navigate home and community. Outcome: Progressing PT treatment consisted of the following to progress towards the above goal(s): PT Evaluation and Treatment Time Therapeutic Activity Time Entry: 23 Treating Therapist: Mary Ingram PT Additional Details: PT Co-Eval/Treatment Information Co-evaluation/co-treatment performed?: No simultaneous skilled care performed PPE used during patient interaction: gloves Patient location at end of session: chair Alarms on at end of session: chair alarm Needs in reach. Time In: 807 Time Out: 835 Total Visit Time: 28 minutes Total Treatment Time (skilled, billable minutes): 23 minutes Upon discontinuation of Acute Care Physical Therapy Services or patient discharge from the hospital this note represents the current Physical Therapy Discharge Summary. Reason for Consult: Discharge planning Level(s) of Care Discussed: detention facility Patient and/or Food Server's Preferred Geographic Area for Discharge: [place] Patient and/or Food Server's Discussion: Discussed referral process with the patient and/or maintenance representative. Patient and/or maintenance representative is agreeable to have placement referral initiated. SW met with patient at bedside to discuss discharge planning. Patient is agreeable for SW to send SNF referrals. SW sent referrals via [facility] and will continue to follow. SANDRA Milton, DARLING Float Project Assistant Available through [employer] and secure chat. Neurovascular Stroke Service Intracerebral Hemorrhage Note IDENTIFYING INFORMATION Esvin Guerrier Jr. MR# [id number] 08/05/2025 HISTORY OF PRESENT ILLNESS Esvin Guerrier Jr. 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 He was found to have acute pontine ICH on CTH. CTA showed bilateral carotid stenosis (R>L). NIHSS 3 on arrival. BP 220/116 on arrival for which nicardipine gtt was started. Neurosurgery was consulted for surgical intervention. He is not on any antiplatelets or anticoagulation. He was admitted to NCCU for close monitoring. LKW midnight on 08/03. INTERVAL HISTORY 08/03: Admit to NCCU, 6hr CTH stable. 08/05: DVT ppx resumed. Losartan started. Transfer to [place] PHYSICAL EXAM Gen: awake, alert, NAD HEENT: normocephalic, no scalp lesions or tenderness, PERRLA, EOMI Neck: trachea midline, no JVD CV: +S1S2, RRR, no m/r/g Lungs: LCTA bilaterally with equal chest rise Abd: soft, nontender, nondistended, +BS x4 quadrants Extrem: Warm and well perfused, no cyanosis, clubbing, edema, 2+ pulses bilaterally Neuro: Oriented x4, CARTAGENA x4, sensation intact and equal bilaterally, dysarthric CN II - All visual gutierrez intact CN II/III - PERRLA CN III/IV/ - EOMI CN V - Light touch to face intact in all 3 divisions CN VII - Facial movement intact and symmetrical bilaterally CN VIII - Hard of hearing due to baseline partial deafness CN X - Cough present CN XI - muscular movement of shoulders and sternocleidomastoid muscles intact and equal bilaterally CN XII - midline protrusion of tongue MOTOR EXAMINATION: no drift noted NIHSS Provider NIH Stroke Scale NIH Interval (Provider): daily NIH Level of Conciousness (Provider): 0 NIH LOC Questions (Provider): 0 NIH LOC Commands (Provider): 0 NIH Best Gaze (Provider): 0 NIH Visual (Provider): 0 NIH Facial Palsy (Provider): 0 NIH Left Arm Motor (Provider): 0 NIH Right Arm Motor (Provider): 0 NIH Left Leg Motor (Provider): 0 NIH Right Leg Motor (Provider): 0 NIH Limb Ataxia (Provider): 0 NIH Sensory (Provider): 0 NIH Best Language (Provider): 0 NIH Dysarthria (Provider): 1 NIH Extinction and Inattention (Provider): 0 NIH Total Score (Provider): 1 Intracerebral Hemorrhage Volume Intracerebral Hemorrhage Score Score 30 Day Mortality following ICH 0 0% Mortality 1 13% Mortality 2 26% Mortality 3 72% Mortality 4 97% Mortality 5 100% Mortality ASSESSMENT AND PLAN Neuro: Acute right basal ganglia, pontine hemorrhage CTH: Hyperdensities within the right basal ganglia and valentin are concerning for acute hemorrhage. No significant edema or mass effect. No acute infarct or hydrocephalus. CTA brain/neck: Atherosclerosis contribute to severe stenosis of the right ICA at the bifurcation as well as the origin of the left CCA. Additional mild-moderate atherosclerotic stenoses involving the more distal segments. Chronic right V2 segment dissection. 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 Severe right vertebral artery stenosis at the origins. MRI brain: Small acute hematoma in the left dorsal hemipons. Additional tiny subacute hematoma in the right external capsule. Findings suggestive of chronic hypertensive angiopathy with numerous microhemorrhages throughout the basal ganglia, thalami and the posterior fossa. Evidence of remote hemorrhages in the basal ganglia and the right hemipons. Repeat CTH: Stable hyperdense lesions in the posterior fossa and in the right basal ganglia TTE: EF 65-70%, positive PFO EKG on admission: NSR LDL 90 HgbA1c 5.2 UDS +methamphetamine, cocaine, marijuana Hemorrhage Etiology likely HTN -SBP goal <160, INR <1.4, platelets >50k Hemorrhagic Stroke Core Measures -NHISS on admission 3 -Patient has been started on Mechanical (SCD's) and Pharmacological (SQ heparin) DVT prophylaxis will be started after stable HCT. -Antiplatelet therapy is not indicated. -Anticoagulation therapy not indicated in hemorrhagic stroke -Patients LDL 90 and HgbA1c 5.2 were checked and the patient will be discharged on a lipid lowering Statin medication if LDL is greater than 70. -Dysphagia screening ordered, and will be completed prior to patient receiving oral intake. -Stroke education booklet has been provided both written and verbal education to the patient and family regarding hemorrhagic strokes. We have reviewed the patient's personal modifiable risk factors including: HTN, substance use as well as education on reducing these risk factors. -Patient is being assessed for Rehab by PT/OT/Speech and PM&R if indicated. HTN, POA: -SBP goal <160 -PRN labetolol/hydralazine -Losartan 25 mg daily started on 9/23 Dysphagia: -BOAT RIGGER following -FEES completed 08/04, soft/bite sized diet with thin liquids Chronic thrombocytopenia, POA: secondary to hepatitis C virus -Baseline platelets ~80. Evaluated by heme on prior admission, no further recs. Pt denies current or remote hx of IV drug use on admission -4 pools platelets given 08/04, platelet goal >50k -RUQ US -HIV panel, Hepatitis PCR and chronic pattery ordered Stimulant use disorder: History of ETOH abuse: -UDS positive methamphetamine, cocaine, marijuana -Pt endorses last use was 7 days [employer] while on a fishing trip with the exception of daily marijuana -Pt denies recent alcohol use, daughters endorse sobriety for years with relapse 2 months ago with now 3x/wk drinking. Pseudobulbar affect, POA: -Fluctuation of inappropriate laughing/crying POA, daughters endorse this is his baseline Disposition: Esvin Chey Valencia Will plan to be discharged to SNF when medically ready Aureliano Ricketts APRN-FLIGHT MANAGER 08/05/2025 12:07 PM VITAL SIGNS Temp: [97.7 F (36.5 C)-98.8 F (37.1 C)] 98 F (36.7 C) Pulse (Heart Rate): [75-92] 85 Resp Rate: [12-31] 26 BP: (136-144)/(64-70) 140/64 Arterial Line (1) BP: (104-154)/(46-74) 140/64 O2 Sat (%): [85 %-94 %] 92 % IMAGING/DIAGNOSTIC STUDIES MRI BRAIN WITH AND WITHOUT CONTRAST Final Result IMPRESSION: Small acute hematoma in the left dorsal hemipons. Additional tiny subacute hematoma in the right external capsule. Findings suggestive of chronic hypertensive angiopathy with numerous microhemorrhages throughout the basal ganglia, thalami and the posterior fossa. Evidence of remote hemorrhages in the basal ganglia and the right hemipons. Extensive white matter signal changes, likely sequelae of severe chronic small vessel ischemic disease. I personally viewed and interpreted these images and I have reviewed and approved this report. ABDOMEN RUQ/LIVER/GB Final Result IMPRESSION: Heterogeneous increased echogenicity of the liver parenchyma which can be seen with steatosis/liver parenchymal disease. No suspicious hepatic lesions identified. I personally viewed and interpreted these images and I have reviewed and approved this report. HEAD WITHOUT CONTRAST Final Result IMPRESSION: Stable hyperdense lesions in the posterior fossa and in the right basal ganglia, which do not suppress out with dual-energy technique. I personally viewed and interpreted these images and I have reviewed and approved this report. CARDIOGRAM Final Result CT HEAD WITHOUT CONTRAST Final Result IMPRESSION: Stable exam compared to the previous CT. Stable small hyperdensity in the dorsal left valnetin and tiny hyperdensity along the lateral right putamen/external capsule. STROKE ANGIO BRAIN/NECK Final Result IMPRESSION: 1. Atherosclerosis contribute to severe stenosis of the right ICA at the bifurcation as well as the origin of the left CCA. Additional mild-moderate atherosclerotic stenoses involving the more distal segments. Stable as compared to the prior exam. 2. 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 3. 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 4. Atherosclerosis contributes to stenosis of the vertebral arterial origins, severe on the right. Multifocal mild stenoses of the distal right vertebral artery due to atherosclerosis. Findings are unchanged from the prior exam. 5. Similar hyperdensities within the right basal ganglia and posterior valentin as described on same day CT head. I personally viewed and interpreted these images and I have reviewed and approved this report. STROKE HEAD-STROKE ALERT ONLY Final Result IMPRESSION: 1. Hyperdensities within the right basal ganglia and valentin are concerning for acute hemorrhage as reported at the outside hospital. However, given lack of access to the outside comparison images and the retention of dense intravascular contrast in the brain, cannot definitively rule out that these are enhancing lesions, given the patient's history of malignancy. 2. No significant edema or mass effect. No acute infarct or hydrocephalus. 3. Remote left lacunar infarct. Findings were discussed with Sasha Brown MD at 1004 on August 03, 2025. I personally viewed and interpreted these images and I have reviewed and approved this report. CATIONS enoxaparin 40 mg Subcutaneous Daily Losartan 25 mg Oral Daily nicotine 1 patch Transdermal Q24H And VERIFY LINKED PATCH PLACEMENT Other Q12H Senna 8.6 mg Oral Daily NEUROCRITICAL CARE DAILY NOTE HOSPITAL VISIT DEMOGRAPHICS Patient: Esvin Guerrier Jr. Code status: Full Code Admission date: 08/03/2025 9:35 AM Hospital days: LOS: 2 days HISTORY OF PRESENT ILLNESS Esvin Guerrier Jr. is a 64 y.o. male with a past history of L basal ganglia ICH (2019), HTN, throat cancer, partially deaf, and hepatitis c who presented to OSH with c/o dizziness, N/V, evaluated for stroke alert with LKW 2400 08/02/25, reportedly non-adherence to anti-HTN medications. BP on presentation 220/116, CT H revealed a pontine hemorrhage and small R basal ganglia hyperdensity. 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 INTERVAL HISTORY SINCE ADMISSION 08/03/2025: admitted to NCCU, BP responded well to cardene from ED, BP 98/77 (84) on arrival to NCCU, weaning cardene to SBP <140. Lower Plt goal of 75 in the setting of chronic thrombocytopenia 08/04: YONI. MRI with and without contrast, CT H dual energy, RUQ to evaluate for cirrhosis, chronic hepatitis panel, HIV, FEEs with BOAT RIGGER, NPO for RUQ US and until FEEs completed. Update Plt goal to 50. Liberalizing BP goal to [address] H[address] Consider PO HTN agent tomorrow when able to get FEEs and have PO intake. 08/05: MRI B w/ and w/o completed, on cardene 5-10 gtt for SBP <140; Liberalize SBP to <160, wean off cardene, pending FEES can start diet and PO meds, start losartan 25mg daily, start lovenox 40mg daily, possible transfer to [place] later today if can wean off cardene and remains stable PHYSICAL EXAM GENERAL: Alert, no acute distress HEENT: normocephalic, no scalp wounds nor lesions CARDIO: +S1S2, RRR, no murmurs, no edema PULM: clear to auscultation bilaterally, equal chest rise; RA ABDOMINAL: soft, nontender, nondistended, active bowel sounds EXTREMITIES: scab to R jarquin POA, dark purple ecchymosis to L back. VASCULAR: 2+ distal pulses, capillary refill <3 seconds, NEURO: Mental status: alert; oriented to person, place, year, and month; good attention Speech/language: dysarthric, comprehension intact; object naming intact; repetition intact Cranial nerves: CN II: Visual gutierrez intact to confrontation. 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 No nystagmus. CN V: Facial sensation intact to light touch. CN VII: Facial strength normal with symmetric movement. CN VIII: Hearing is grossly intact. CN IX and X: Soft palate elevates symmetrically in the midline CN XI: Shoulder shrug and sternocleidomastoid strength 5/5 bilaterally CN XII: Tongue is midline with normal movement; Motor: Normal bulk and tone. No UE drift. 5/5 BUE and 5/5 BLE Sensation: Extremity sensation intact throughout. 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 - OK for DVT ppx 24hrs post CTH (08/05) - OP follow up with Dr. Martinez in [address] H. - Daily NIHSS: NIH Stroke Scale: NIH Level of Conciousness (Provider): 0 NIH LOC Questions (Provider): 0 NIH LOC Commands (Provider): 0 NIH Best Gaze (Provider): 0 NIH Visual (Provider): 0 NIH Facial Palsy (Provider): 0 NIH Left Arm Motor (Provider): 0 NIH Right Arm Motor (Provider): 0 NIH Left Leg Motor (Provider): 0 NIH Right Leg Motor (Provider): 0 NIH Limb Ataxia (Provider): 0 NIH Sensory (Provider): 0 NIH Best Language (Provider): 1 NIH Dysarthria (Provider): 2 NIH Extinction and Inattention (Provider): 0 NIH Total Score (Provider): 3 - Imaging: - 08/03 CTA H/N: artherosclerosis contribute to severe stenosis of R ICA at the bifurcation and the origin of the left CCA, with further mild/mod stenosis involving more distal segments. 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 Known severe right vertebral arterial stenosis to prior exam - 08/03 1004: Initial CT H: hyperdensities within right basal ganglia while could be hemorrhage but could be calcification and valentin are concerning for acute hemorrhage. - 08/03 1600: 6H-stability CT H: stable. - 08/04 CTH Dual energy: Stable hyperdense lesions in the posterior fossa and in the right basal ganglia, which do not suppress out with dual-energy technique - 08/04 MRI B with and without contrast: Small acute hematoma in the left dorsal hemipons. Additional tiny subacute hematoma in the right external capsule; Findings suggestive of chronic hypertensive angiopathy with numerous microhemorrhages throughout the basal ganglia, thalami and the posterior fossa. Evidence of remote hemorrhages in the basal ganglia and the right hemipons; Extensive white matter signal changes, likely sequelae of severe chronic small vessel ischemic disease - Cytotoxic Cerebral Edema Management: - Goal Na 135 - 145; monitor Na Q24H Recent Labs 08/03/25 1009 08/04/25 0025 08/05/25 0007 SODIUM 135 140 139 OSMOLALITY 290 296 294 CHLORIDE 102 106 108 - Hemorrhage presumably 2/2 uncontrolled HTN etiology and stimulant use disorder; evaluation for cause and source: - Repeat TTE (08/04/25) EF 65-70%, agitated saline contrast study is positive for a right to left shunt. (see cards) - LDL 90 defer at this time, consider prior to discharge. (see cards) - HA1C level 5.2 (see endo) - Defer antiplatelet therapy and therapeutic anticoagulation - UDS positive on admission for methamphetamines, cocaine, and marijuana - NS ok with DVT ppx to start 08/05 (see Heme) Pain/Sedation management: - Tylenol 650mg Q4H PRN - reports previous use of gabapentin, found it to be ineffective Psych: Pseudobulbar affect: - Fluctuation of inappropriate laughing/crying POA, daughters endorse this is his baseline. Stimulant use disorder: - Urine tox screen pos on admission for methamphetamines, cocaine, and marijuana. - Pt endorses last use was 7 days [employer] while on a fishing trip with the exception of daily marijuana. Hx of ETOH: - Pt denies recent alcohol use, daughters endorse sobriety for years with relapse 2 months ago with now 3x/wk drinking. Lab Results Component Value Date ETOHSERUM <10 08/03/2025 Pulm: No Current Issues O2 Sat (%): 92 % (08/05 1000) O2 Device: room air (08/05 0400) - Goal SpO2 >92%; on room air - [id number], encourage pulmonary toileting Cards: HTN Urgency (POA, resolved) Essential HTN BP 220/116 on presentation to OSH, Temp: [97.7 F (36.5 C)-98.8 F (37.1 C)] 98 F (36.7 C) Pulse (Heart Rate): [75-92] 85 Resp Rate: [12-31] 26 BP: (136-144)/(64-70) 140/64 Arterial Line (1) BP: (104-154)/(46-74) 140/64 O2 Sat (%): [85 %-94 %] 92 % - Goal SBP <160, MAP >65 - Home antihypertensives: none, reviewed filled history with no recent fills. - Current regimen: - Cardene gtt --> wean now that SBP goals liberalized - Start Losartan 25mg daily - PRN labetalol and hydralazine Imaging: - 09/2020 TTE: EF 55-60% - Repeat TTE (08/04/25) EF 65-70%, agitated saline contrast study is positive for a right to left shunt. - 08/03 ECG: NSR - 08/03 troponin 9 - Statin Therapy: Indicated if LDL >70, defer for now, consider prior to discharge; Recent Labs 08/03/25 1009 CHOLESTEROL 154 TRIG 119 HDL 40 Renal/: No Current Issues Fluid Balance: - Goal: euvolemia - Maintenance: stop mIVF given passed FEES Intake/Output Summary (Last 24 hours) at 08/05/2025 1055 Last data filed at 08/05/2025 1051 Gross per 24 hour Intake 2964.54 ml Output 1240 ml Net 1724.54 ml - Daily Chem 10; electrolytes replaced per NCCU protocol Recent Labs 08/04/25 0025 08/05/25 0007 SODIUM 140 139 POTASSIUM 3.4* 3.8 CHLORIDE 106 108 CO2 24 22 BUN 22 22 CREATSERUM 1.27 1.25 PHOSPHORUS 2.8 2.9 MAGNESIUM 1.8 2.1 ICA 4.25* 4.00* GI/Nutrition: Reported bright red bleeding per rectum recent <6 months, per pt and family was evaluated at OSH and source believed to be hemorrhoids, no s/sx of bleeding on admission. Hgb 14 on admission. Recent Labs 08/03/25 1009 ALBUMIN 4.0 BILIDIRECT 0.1 BILITOTAL 0.6 ALKPHOS 59 ALT 31 AST 34 TP 7.5 - DIET SOFT AND BITE SIZED (IDDSI 6) Liquid Thin (IDDSI 0) - [place] Swallow Screening Result: postpone until no longer NPO for other medical/surgical reasons awaiting BOAT RIGGER consult 2/2 cough with thin liquids with [place] on admission. Previously seen and passed FEES with BOAT RIGGER (2019) for thin liquids with regular diet. - FEES completed 08/05, okay for soft bite size diet with thin liquids, 1:1 supervision, meds whole or crushed in puree Bowel regimen: - Last Bowel Movement: ([employer] AGENT) - Senna, prn miralax Endo: No Current Issues - Goal blood glucose 140-180 - Insulin SSI: monitor for initiation Recent Labs 08/03/25 1009 08/03/25 1220 08/04/25 1146 08/04/25 1846 08/04/25 2313 08/05/25 0007 GLUCOSE 145 < > 132 115 120 109 HGBA1C 5.2 -- -- -- -- -- < > = values in this interval not displayed. ID: Acute Leukocytosis 2/2 reactive Recent Labs 08/04/25 0025 08/05/25 0007 WBC 10.85* 7.32 - Temp (24hrs), Av.3 F (36.8 C), Min:97.7 F (36.5 C), Max:98.8 F (37.1 C) - PRN Tylenol for T>100.4F - Most recent and positive cultures: Date Collected Source Result Date Finalized - Antiinfectives: Start Date Antiinfective Coverage Course Length Stop Date Heme/Onc: Chronic Thrombocytopenia 2/2 Hepatitis C Virus Baseline Plt ~ 80 (2019). Evaluated by heme on prior admission, no further recs. Pt denies current or remote hx of IV drug use on admission. Recent Labs 08/03/25 1009 08/03/25 1649 08/04/25 0025 08/04/25 0443 08/04/25 0845 08/05/25 0007 WBC 10.63* -- 10.85* -- -- 7.32 RBC 4.99 -- 4.69 -- -- 4.54 HGB 15.0 -- 14.0 -- -- 13.4 HCT 43.2 -- 40.6 -- -- 39.5* PLATELET 47* < > 60* < > 68* 62* PT 13.7 -- -- -- -- -- PTT 30.2 -- -- -- -- -- INR 1.0 -- -- -- -- -- < > = values in this interval not displayed. - Goal plt 50, INR <1.4, Hgb >7 - Blood products given: 4 pools plt (08/04/2025) - 08/04 RUQ Abd US to r/o cirrhosis: consistent w/ steatosis, no hepatic lesions or cirrhosis - HIV panel neg Chronic Hep C: - Hepatits PCR and chronic battery + hep C AB, + viral load - Amb referral to ID for outpatient follow-up for hep C treatment placed DVT prophylaxis: - Start lovenox 40mg 08/05 - SCD's Musc: No Current Issues - PT/OT consulted and following - Current Activity Order: advance as tolerated Fall Risk: - Assessed for patient fall risk and discussed safety measures during rounding. - known gait disturbance, ambulates with a cane at baseline. Social/Dispo: - Code status: Full Code - Discharge planning per PCRM/SW. Nicotine Dependence Use per Day: 1ppd Patient is not ready to quit Discussed pharmacotherapy. Offered Rx to be sent to pharmacy of choice. We discussed health risks and resources. Offered referral to [facility] Smoking Cessation clinic (AMB REFERRAL TO SMOKING CESSATION) Spent 3-5 minutes counseling on this topic Nicotine patch Quality Self-Check Complexity. . Hypocalcemia - Continue to monitor and replete. Thrombocytopenia - Continue to monitor. Obesity, class I Body mass index is 30.78 kg/m . - Follow with PCP for dietary and lifestyle modifications. Wound Documentation Wound 08/03/25 1230 Lateral;Left;Lower Back (Active) Date First Assessed/Time First Assessed: 08/03/25 1230 Wound Location Orientation: Lateral;Left;Lower Location: Back Any conditions listed below are present on admission unless otherwise specified. . ICU Checklist: [x] Assess pain Presence of Pain: denies pain/discomfort Presence of Pain Score (Auto-calculated): 0 [x] Both SAT & SBT [x] Choice of analgesia/ sedation See neuro [x] Delirium Overall CAM-ICU: Negative [x] Early mobility PT/OT consulted?: Yes CURRENT AM-PAC Mobility Raw Score: 12 CURRENT AM-PAC Mobility Functional Limitation: 68.66% Impaired in Basic Mobility [x] Family Engagement Primary Emergency Contact: Amberly Allen Last updated: 08/03 daughters updated POA at bedside. [x] Get lines out Arterial line: inserted 08/03/2025, (indication: hemodynamic monitoring) Central lines: none Discussed with NCCU Attending, Dr. Jimmy Burton PA-C 08/05/25 10:55 AM Check the treatment team to find the assigned neurocritical care provider (resident, fellow, BOX SEALING MACHINE OPERATOR, or PA) or page the corresponding number below NCC1 (Beds [phone]): pager #[phone] NCC2 (Beds [phone], 12 Jorge, and overflow): pager #[phone] I have independently seen and examined the patient on 08/05/25. I agree with the history, examination, assessment and plan as documented by the BOX SEALING MACHINE OPERATOR with my changes/additions added. 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 SBP reported to be in 220. CTH revealed R BG and pontine hyperdensities concerning for acute ICH. Interval History: No acute overnight events Scheduled Meds: nicotine 1 patch Transdermal Q24H And VERIFY LINKED PATCH PLACEMENT Other Q12H Senna 8.6 mg Oral Daily Labs: Chem 7: Lab Results Component Value Date SODIUM 139 08/05/2025 POTASSIUM 3.8 08/05/2025 CHLORIDE 108 08/05/2025 CO2 22 08/05/2025 GLUCOSE 109 08/05/2025 BUN 22 08/05/2025 CREATSERUM 1.25 08/05/2025 BUNCREARATIO 18 08/05/2025 OSMOLALITY 294 08/05/2025 GFR 64 08/05/2025 GFRAA >=60 10/08/2020 CBC: Lab Results Component Value Date WBC 7.32 08/05/2025 HGB 13.4 08/05/2025 HCT 39.5 (L) 08/05/2025 PLATELET 62 (L) 08/05/2025 MCV 87.0 08/05/2025 Physical Exam: Vital Signs: Blood pressure 140/64, pulse 86, temperature 98 F (36.7 C), temperature source Oral, resp. rate 21, height 1.778 m (5' 10), weight 97.3 kg (214 lb 8.1 oz), SpO2 (!) 89%. 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 Follow up as an OP for aneurysm surveillance - Most recent CTH is stable, brain MRI obtained overnight, confirmed the ICH, findings of chronic hypertensive angiopathy with numerous microhemorrhages - CTA completed as above - UDS was positive for cocaine, cannabinoids and amphetamine/methamphetamine - SBP goal <160, MAP >65, eunatremia. Optimal BP goal <130/80 - Hold all therapeutic AC, AP, PLT goal >50K, INR <1.4 - Neurochecks with pupillometer - PT/OT/BOAT RIGGER Pulmonary: No acute issues Oxygen Therapy O2 Sat (%): (!) 89 % O2 Device: room air Cardiovascular: Essential HTN - SBP goal< 160, MAP goal >65. PRN Hydralazine and Labetalol. Nicardipine gtt, wean as tolerated - Add losartan at 25 mg every day - TTE with EF of 65-70%, normal regional wall motion, positive R to L shunt Nephrology: - Maintain euvolemia - Watch Cr GI/Nutrition: Hep C - Hep C PCR, quant of 3,960.00 , referral to ID as an OP for treatment - Chronic hepatitis panel is otherwise negative - RUQ US revealed steatosis/liver parenchymal disease. No suspicious hepatic lesions identified. - Follow up on - BOAT RIGGER evaluation, FEES today - Bowel regimen to prevent constipation Endocrinology: - Goal blood glucose 140-180. SSI A1c of 5.2 ID: Afebrile, mild leukocytosis - possibly reactive, trending down - PRN Tylenol for T>100.4F Heme/Onc: Chronic thrombocytopenia - thought to be related to his underlying Hep C per heme. Transfused 4 pools of plt this admission with no significant change in Plt count - Hep C PCR, quant of 3,960.00 , referral to ID as an OP for treatment - Chronic hepatitis panel is otherwise negative - RUQ US revealed steatosis/liver parenchymal disease. No suspicious hepatic lesions identified. - HIV ab is negative - Goal plt >50, INR <1.4, Hgb >7 - VTE prophylaxis: - SCDs - Chemical prophylaxis - Start LVX Acute deconditioning - PT/OT consulted and following - Mobility as tolerated Additional details and other supportive care as per the BOX SEALING MACHINE OPERATOR note from the same day This patient is critically ill, unstable and is at high risk of imminent or life threatening deterioration due to ICH, hypertension, cocaine/amphetamine use, thrombocytopenia, brain aneurysm, Hep C requiring Nicardipine gtt for strict blood pressure control, close neurologic and hemodynamic monitoring. I personally spent 31 minutes in the intensive care unit providing critical care services to the patient today independent of procedures, teaching and other care providers. Management of the above was performed. My time managing this critically ill patient included review of interval history, laboratories, radiology and consultation reports; performing a physical examination; discussing the patient with the multi-disciplinary team and managing life sustaining therapies to prevent imminent clinical deterioration. Ivan Marquez MD Neurocritical Care Attending RUQ US performed, report to follow Discharge Planning Assessment Is the patient able to participate in the assessment?: Yes Care Management Plan Assessment completed with patient and patient's daughter Clair Guerrier. LNOK is patient's spouse Amberly Raviiday. No HCPOA completed. Prior to admission, patient used a cane but independent with ADLs. No other DME/HHC/O2 at home. Patient lives in a 2 story home with and daughters Clair and Camille. 0 JLUIS to home. Patient does not have current PCP but family reports they are currently working on connecting to a provider. Patient utilizes food stamps but denies financial or safety concerns. Initial Discharge Planning Expected Discharge Disposition: Residential Facility Transportation Available for Discharge: Ambulance Anticipated DME: unknown at this time Anticipated Services at Discharge: Physical Therapy, Occupational Therapy, Outpatient follow up Patient Assessment Completed: Initial Legal Next of Kin Does the patient have a Guardian?: No Spouse: Yes Name and Contact information: Amberly Chey ([phone]) Adult Child(allison), List All Adult Children: Yes Name and Contact information: Clair Guerrier ([phone]) Would you like to add additional adult children?: Yes Name and Contact information: Camille Yeungruff ([phone]) Name and Contact information: Sharon Middleton Name and Contact information: Brisa Monroy (no phone) Reviewed and Updated in Demographics? : Yes Advanced Care Planning Has the patient completed Advance Directives?: Not Completed Referral to Social Work for Advance Care Planning? : Patient Declines Medication Management Does the patient have prescription insurance coverage? : Yes Is the patient on Anticoagulation? : No [address] [facility] [place] [address] [address] [place] [address] Living Environment and Support System Is the patient from a facility or custodial?: No Living Environment: House Patient Caregiving Responsibilities: Self Patient-identified caregiver/support network: Family Who does the patient identify as a teachable caregiver(s)?: Spouse or Partner, Child(allison) - Independent Services Does the patient use a home health or hospice agency?: No Current with dialysis?: No Does the patient use any community programs or services?: Yes Select Program, Services, Resources : Food [place] Does the patient have a Plant Technician/Control Room Operator or Project Assistant?: No Does patient use DME? : sae alvarez Would you like to add additional DME providers?: No Does the patient use oxygen?: No Does patient use medical supplies? : none Anticipated Changes Related to Illness/Injury? : Unknown at this time Initial ADLs Prior to Arrival What is the patient's reported baseline physical functioning prior to this acute illness?: independent What is the patient's reported baseline cognitive functioning prior to this acute illness?: independent Is the patient's baseline functioning changed by this acute illness? : Unable to assess Concerns with patient being able to care for themselves at home? : No Nalini Elam Social Work Student Available by secure chat Cosigned by DARLING Worrell at 08/04/2025 11:43 AM EDT Acute Care BOAT RIGGER Speech/Language/Cognitive and Swallow Evaluations Clinical Recommendations Recommended Method of Nutrition: NPO, no oral diet recommended, Short-term enteral nutrition Recommended Medication Administration (as appropriate per MD): Non-Oral Type of Cues/Supervision: 1:1 supervision, 1:1 assistance *Consider limited ice chips following oral care, given strict 1:1 RN supervision to assist in secretions clearance and reduce risk of disuse atrophy. *To prevent potential development of aspiration pneumonia/nosocomial infections, RECOMMEND: Oral care routine q4h and HOB upright as tolerated Other Recommendations: Inpatient Referrals: Flexible Endoscopic Evaluation of Swallowing (FEES) Best mode of Communication: Regular spoken language Communication Strategies: -allow additional time, reduce background noise, face the patient/speaker and ask clarifying questions as needed given dysarthria (e.g., slurred speech) -can cue patient to utilize speaking strategies including: Speaking up, Over-articulating, and Speaking Slow Discharge Recommendations: Based on the below outcome measures/assessment score(s), and BOAT RIGGER clinical judgment, discharge destination recommendation is: Inpatient Rehab Facility Barriers to discharge home: Need for 1:1 assist to ensure safety with all PO intake, 1:1 assist needed for IADL's including medication management and finances Supporting factors for discharge setting: Impaired swallow function limiting nutritional status and safety with oral intake, Impaired cognitive skills limiting independence Acute BOAT RIGGER Outcomes Tracking Communicate basic wants and needs?: yes Demo insight/appreciation of deficits?: no Complete basic problem solving?: yes Current therapy frequency recommendation in acute: Swallow Therapy Frequency: 5 times a week Clinical Swallow Impression: Esvin Guerrier Jr. presents with concern for acute on chronic oropharyngeal dysphagia secondary to acute pontine ICH, history of throat cancer, history of partial deafness, and history of L BG ICH (2019). He reports coughing with all textures since initial hemorrhage in 2019. Oral stage unremarkable characterized by adequate oral acceptance, bolus formation, and oral clearance with minimal trials. Pharyngeal stage presumed intact without evidence of overt clinical signs/symptoms concerning for aspiration or laryngeal penetration, however, at risk for silent aspiration given lesion location. Recommend NPO and to proceed with FEES. Clinical Speech/Language/Cognitive Impression: Esvin Guerrier Jr. presents with moderate mixed dysarthria and likely acute on chronic cognitive linguistic deficits secondary to acute pontine ICH, history of throat cancer, history of partial deafness, and history of L BG ICH (2019). Testing consisted of formal and informal testing which revealed breakdowns in speech intelligibility, processing speed, and insight . Patient reports dysarthria may be at baseline but unable to fully confirm- reports never addressing it in formal BOAT RIGGER services. He reports everything is harder in terms of his speech, swallowing, and thinking. Additionally, he reports new onset of blurred vision, but ongoing pseudobulbar effect. Given the functional impact of these areas of weakness on daily living, formal BOAT RIGGER services are recommended. Patient Education/Instruction Learners: Patient Education provided: Dysphagia risk factors, Dysphagia recommendations/impressions, Plan of care Teaching method: Verbal Education/Instruction Learner response: States/Identifies/Teaches back Learning preferences: Auditory Learning considerations: Cognition Patient Instruction/Education comments: Reviewed recommendations and plan for FEES. Patient in agreement and understanding. Rehab potential: good, to achieve stated therapy goals Plan for next session: 08/04- FEES Pain: General Pain Documentation (Adult, OB, Peds) Presence of Pain: denies pain/discomfort Presence of Pain Score (Auto-calculated): 0 Precautions: Patient Safety Communication Prior to Visit: Nursing, Physician (team cleared for PO trials during rounds, RN provided clearance) Lines/Tubes/Drains (Rehab Status): Telemetry, Arterial line BOAT RIGGER Existing Precautions/Restrictions: no known precautions/restrictions Systems Review: Onset of Illness/Injury or Surgery Date (BOAT RIGGER): 08/03/21 Communication Status: Verbal, Dysarthric Acute BOAT RIGGER Outcomes Tracking Communicate basic wants and needs?: yes Demo insight/appreciation of deficits?: no Complete basic problem solving?: yes Exam limited by cognition?: No Respiratory Status O2 Device: room air O2 Sat (%): 92 % Resp Rate: 20 Patient History: Esvin Guerrier Jr. is a 64 y.o. male with a past history of L basal ganglia ICH (2019), HTN, throat cancer, partially deaf, and hepatitis c who presented to OSH with c/o dizziness, N/V, evaluated for stroke alert with LKW 2400 08/02/25, reportedly non-adherence to anti-HTN medications. BP on presentation 220/116, CT H revealed a pontine hemorrhage and small R basal ganglia hyperdensity. 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 INTERVAL HISTORY SINCE ADMISSION 08/03/2025: admitted to N[facility]U, BP responded well to cardene from ED, BP 98/77 (84) on arrival to NCCU, weaning cardene to SBP <140. Lower Plt goal of 75 in the setting of chronic thrombocytopenia 08/04: YONI. MRI with and without contrast, CT H dual energy, RUQ to evaluate for cirrhosis, chronic hepatitis panel, HIV, FEEs with BOAT RIGGER, NPO for RUQ US and until FEEs completed. Update Plt goal to 50. Liberalizing BP goal to [address] H. Consider PO HTN agent tomorrow when able to get FEEs and have PO intake. Prior Level of Function: Home Setting Residence: House Lives With: spouse First floor setup: bedroom Number of stairs to enter home: 0 Residence: House Lives With: spouse IADL History IADLs: independent Primary Language: Micronesian IADL Comments: partially deaf, reports blurred vision BOAT RIGGER Existing Precautions/Restrictions: no known precautions/restrictions BOAT RIGGER History: BSE 2019: Pt p/w mild oropharyngeal dysphagia c/breduced bolus efficiency and impaired airway protection. Valleculae residue with puree suspected to be d/t reduced BoT retraction and reduced pharyngeal contraction. Postcricoid residue also overflowed into laryngeal vestibule after the swallow. Spontaneous f/u swallows cleared residue and penetration. Liquid wash was also effective to clear pharyngeal residue. Thin liquids observed in laryngeal vestibule after the swallow likely d/t reduced laryngeal elevation/excursion. Pt was sensate to penetration and spontaneous coughs and f/u swallows cleared penetration. No aspiration observed during this study. Recommend beginning a soft/bite sized diet with thin liquids.Will f/u x1 for ongoing assessment of diet tolerance but no anticipated dysphagia needs upon discharge. Will f/u to complete cognitive-linguistic eval. D/W pt, MD, and RN. SLE 2020: Patient presents with suspected functional receptive language and expressive language when tasks presented via writing. However, given extent of hearing loss difficulty to fully asses language skills vs impact from hearing loss Use of assisted listening device was not benefical. Pt also only completed 11th grade so limited education may also be impacting results. Prior method of nutrition Oral nutrition/hydration Regular (IDDSI 7) Liquid - thin (IDDSI 0) Current method of nutrition: No current method of nutrition Clinical Reasons for Exam: Patient Reported Dysphagia Symptoms: Yes Dysphagia Symptoms: Coughing with oral intake Reason(s) for Exam: Acute dysphagia, Chronic dysphagia, Recent neurological diagnosis Acute Dysphagia Risk Factors: Pontine hemhorrhage Chronic Dysphagia Risk Factors: Throat cancer, previous BG infarct Subjective: Patient alert, resting in chair. He was pleasant and agreeable to therapy. No family present Oral Mechanism Exam: Oral Mucosa Healthy appearing mucosa Oral Secretions Normal Dentition Natural: many missing Face: Sensory Function Equal sensation on forehead, cheeks and jaw Face: Motor Function Symmetrical at rest Mandible Functional bilateral symmetry, range of motion and perceived strength of masseter and temporal muscles Lips Symmetrical at rest and during movement Tongue Symmetrical, functional range of motion in all planes Soft Palate Uvula is midline Gag Response Did not test Neck and Shoulders Incomplete range of motion - left Cranial Nerve Impairments XI Spinal Accessory Nerve Vocal Quality: (rough) GRBAS: A perceptual rating scale for voice parameters Rating scale of 0 to 3 (0 = no impairment, 1 = minimal to mild impairment, 2 = moderate impairment, 3 = severe impairment) Grade of dysphonia (G): 1 Roughness (R): 1 Breathiness (B): 0 Asthenia (A): 0 Strain (S): 0 Position of patient: High Thrasher's (60-90 degrees) Anticipatory phase: Functional Foods and Liquids Trialed Consistency delivered via Amount Ice Spoon x3 Thin Spoon, Straw spoon x2, straw x3 Oral Phase Function Comments Labial Closure Functional Mastication Did not assess Oral Stasis Absent Cough Before the Swallow Oral Phase Summary: Oral stage unremarkable within minimal trials Pharyngeal Phase Function Comments Perceived Swallow Present Cough Response No Throat Clear No Subjective Complaint of Residue No Pharyngeal Phase Summary: Presumed at risk given pontine hemorrhage, however, no direct instances/ overt symptoms concerning for aspiration/penetration. Unable to rule out silent aspiration at bedside. Swallow Outcomes: Functional Oral Intake Scale (FOIS): 1 Respiratory Status: O2 Device: room air O2 Sat (%): 92 % Resp Rate: 20 Clinical Swallow Exam limited by cognition: No Strategies Trialed: Strategy: Effectiveness: [place] Swallow Screen: (administered by: RN) [place] Swallow Screening Screening Exclusion Criteria: NPO order for other medical/surgical reasons Cognitive Screen: Orientation: able to give name, able to name place, able to name current year Cognitive Screen: Command Following: able to open mouth, able to stick out tongue, able to smile Oral Motor Function : able to close lips, able to move tongue to corners of lips, able to stick out tongue past lips, able to pucker lips and smile 3 oz. Water Swallow Challenge : coughing/throat clearing-overt signs/symptoms [place] Swallow Screening Result: postpone until no longer NPO for other medical/surgical reasons Speech/Language/Cognitive Evaluation EXPRESSIVE LANGUAGE: Functional Task: Imitates Gestures Functional Automatic Speech Functional Phrase Completion Functional Confrontation Naming Functional Answering 'wh' Questions Functional Repetition Functional Verbalize Basic Wants and Needs Functional Functional Participation in Conversation Functional Expressive Language Characteristics: Fluent RECEPTIVE LANGUAGE: Functional Task: Identify Functional Objects Functional Follow 1-Step Commands Functional Follow 2+ Step Commands Functional Answers Basic Y/N Questions Functional Answers Complex Y/N Questions Functional Conversational Comprehension Functional READING: Functional able to read item presented, however, likely impacted by visual spatial skills/blurred vision Task: Letter Identification Single Words Aloud Single Word Comprehension Sentence Comprehension Functional Environmental Reading Functional WRITING: Unable to assess- likely impacted by visual spatial skills/blurred vision Task: Copying Writing to Dictation Writing Biographical Information Writing Single Words Writing Sentences Functional Writing SOCIAL INTERACTION/PRAGMATICS: Impaired -pseudobulbar affect noted in chart. Task: Initiates Conversation Functional Takes Turns in Communication Functional Maintains Eye Contact Functional Maintains Topic Functional Shifts Topics Appropriately Functional Affect Impaired Responds Appropriately to Questions Functional COGNITION: Impaired Task: Arousal/Alertness Delayed responses to stimuli Orientation Level Oriented to person, Oriented to place, Oriented to time Safety Judgment Decreased awareness of need for safety, Decreased awareness of need for assistance Awareness of Errors Decreased awareness of errors Deficits Decreased awareness of deficits Attention Span Appears intact Memory Decreased short term memory Problem Solving Able to problem solve independently Cognition Comments impaired- orientation, insight/awareness, and recall of recent events (partial recall of address). MOTOR SPEECH TASKS: Impaired- Task: Imitate Motor Movements Impaired Imitate Sounds and Words Impaired Rapid Alternating Movements Impaired Speech Intelligibility Impaired Fluency Impaired Saliva Management Impaired VOCAL PARAMETERS: Impaired Task: Breath Support Coordination of Respiration and Phonation Duration of Phonation Pitch Control Loudness Vocal Quality (rough) Subjective Voice Evaluation Grade of dysphonia (G): 1 Roughness (R): 1 Breathiness (B): 0 Asthenia (A): 0 Strain (S): 0 BOAT RIGGER Outcomes: The Orientation Log (O-Log) is designed to be a quick quantitative measure of orientational status for use at bedside with rehabilitation inpatients. Place, time, and situational (Etiology/Event + Pathology/Deficits) domains are assessed. Patient responses are scored according to the following criteria: 3 = correct spontaneously or upon first free recall attempt; 2 = correct upon logical cueing (e.g., That was yesterday, so today must be ); 1 = correct upon multiple choice or phonemic cuing; and 0 = incorrect despite cueing, inappropriate response, or unable to respond. Patient scored Total Score: this date. The Cognitive Log (Cog-Log) is designed to be a quick quantitative measure of cognition for use at bedside with rehabilitation patients. It is intended for individuals who have achieved consistent accurate orientation, such as measured by the Orientation Log (O-Log). The Cog-Log can be used to document cognitive progress on a daily basis, in the areas of immediate memory, reasoning, thought organization and attention. All items are scored from 0 to 3 for a total possible score of 30, which can be graphed for quick reference. Patient scored Total Score: this date. Acute BOAT RIGGER Goals Plan of Care by ROSS Henriquez at 08/04/2025 9:22 AM Version 1 of 1 Problem: Dysphagia Goal: FEES - Patient will participate in Fiberoptic Endoscopic Evaluation of Swallowing (FEES) study to objectively assess pharyngeal swallow function to most appropriately guide BOAT RIGGER plan of care Outcome: Ongoing Problem: BOAT RIGGER - Cognition Goal: Metacognition - Patient will identify at least 3 deficits related to medical condition and how deficits will impact ability to return home with fading cues to improve safety and independence Outcome: Ongoing Goal: Ongoing Assessment - Patient will participate in ongoing dynamic assessment of reading, writing, and cognitive-linguistic skills across 1 session to better assess deficits and most appropriately guide BOAT RIGGER plan of care Outcome: Ongoing Problem: BOAT RIGGER - Motor Speech Goal: Intelligibility Strategies - Patient will teach back and utilize intelligibility strategies in structure and in conversation to improve intelligibility to at least 80%, with minimal cues Outcome: Ongoing Speech Language Pathologist: ROSS Henriquez Time In: 921 Time Out: 943 Total Visit Time: 22 minutes Total Treatment Time (skilled, billable minutes): 22 minutes BOAT RIGGER Co-Eval/Treatment Information Co-evaluation/co-treatment performed?: No simultaneous skilled care performed Non-billable assistance during session: n/a Assisted by during session: BOAT RIGGER observer PPE used during patient interaction: gloves Patient location/status at end of session: bed with head of bed elevated Patient alarms at end of session: none altered Needs in reach BOAT RIGGER Evaluation and Treatment Time Speech Eval - Sound Production W/Lang Comp and Exp 66481: 12 Swallowing Eval 92228: 10 Upon discontinuation of Acute Care Speech Therapy Services or patient discharge from the hospital this note represents the current Speech Therapy Discharge Summary I have independently seen and examined the patient on 08/04/25. I agree with the history, examination, assessment and plan as documented by the BOX SEALING MACHINE OPERATOR with my changes/additions added. 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 SBP reported to be in 220. CTH revealed R BG and pontine hyperdensities concerning for acute ICH. Interval History: On Nicardipine gtt Scheduled Meds: nicotine 1 patch Transdermal Q24H And VERIFY LINKED PATCH PLACEMENT Other Q12H Senna 8.6 mg Oral Daily Sodium chloride 0.9% 0-250 mL Intravenous See admin instructions Labs: Chem 7: Lab Results Component Value Date SODIUM 140 08/04/2025 POTASSIUM 3.4 (L) 08/04/2025 CHLORIDE 106 08/04/2025 CO2 24 08/04/2025 GLUCOSE 136 08/04/2025 BUN 22 08/04/2025 CREATSERUM 1.27 08/04/2025 BUNCREARATIO 17 08/04/2025 OSMOLALITY 296 08/04/2025 GFR 63 08/04/2025 GFRAA >=60 10/08/2020 CBC: Lab Results Component Value Date WBC 10.85 (H) 08/04/2025 HGB 14.0 08/04/2025 HCT 40.6 08/04/2025 PLATELET 68 (L) 08/04/2025 MCV 86.6 08/04/2025 Physical Exam: Vital Signs: Blood pressure 139/62, pulse 72, temperature 98.9 F (37.2 C), temperature source Axillary, resp. rate 21, height 1.778 m (5' 10), weight 97.3 kg (214 lb 8.1 oz), SpO2 95%. 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 Follow up as an OP for aneurysm surveillance - Most recent CTH is stable, obtain DE CTH today - CTA completed as above - Obtain brain MRI W/Wo contrast - UDS was positive for cocaine, cannabinoids and amphetamine/methamphetamine - SBP goal <140, MAP >65, eunatremia - Hold all therapeutic AC, AP, PLT goal >50K, INR <1.4 - Neurochecks with pupillometer - PT/OT/BOAT RIGGER when able Pulmonary: No acute issues Oxygen Therapy O2 Sat (%): 95 % O2 Device: room air Cardiovascular: Essential HTN - SBP goal< 140, MAP goal >65. PRN Hydralazine and Labetalol. Nicardipine gtt, wean as tolerated - Consider adding ACEI or ARBS tomorrow pending his Cr - Obtain TTE Nephrology: - Maintain euvolemia - Watch Cr GI/Nutrition: Hep C - Obtain chronic Hep panel - Obtain RUQ US to rule out cirrhosis - Follow up on Hep C PCR, quant - BOAT RIGGER evaluation - Bowel regimen to prevent constipation Endocrinology: - Goal blood glucose 140-180. SSI A1c of 5.2 ID: Afebrile, mild leukocytosis - possibly reactive - PRN Tylenol for T>100.4F Heme/Onc: Chronic thrombocytopenia - thought to be related to his underlying Hep C per heme. Transfused 4 pools of plt with no significant change in Plt count - Obtain chronic Hep panel - Obtain RUQ US to rule out cirrhosis - Follow up on Hep C PCR, quant - Check HIV - Goal plt >50, INR <1.4, Hgb >7 - VTE prophylaxis: - SCDs - Chemical prophylaxis - Hold today Acute deconditioning - PT/OT consulted and following - Mobility as tolerated Additional details and other supportive care as per the BOX SEALING MACHINE OPERATOR note from the same day This patient is critically ill, unstable and is at high risk of imminent or life threatening deterioration due to ICH, hypertension, cocaine/amphetamine use, thrombocytopenia, brain aneurysm, Hep C requiring Nicardipine gtt for strict blood pressure control, close neurologic and hemodynamic monitoring. I personally spent 32 minutes in the intensive care unit providing critical care services to the patient today independent of procedures, teaching and other care providers. Management of the above was performed. My time managing this critically ill patient included review of interval history, laboratories, radiology and consultation reports; performing a physical examination; discussing the patient with the multi-disciplinary team and managing life sustaining therapies to prevent imminent clinical deterioration. Ivan Marquez MD Neurocritical Care Attending Acute Occupational Therapy Evaluation Prior Gross Functional Mobility: used device Current AM-PAC score(s): CURRENT AM-PAC Activity Raw Score: 12 Based on the above AM-PAC score(s) and OT clinical judgment, discharge destination recommendation is: Residential Facility Barriers to discharge home: Patient needs assistance with functional mobility, Patient needs assistance with ADLs, Patient needs assistance with IADLs (see note below) Mobility equipment available at home: ADL equipment available at home: Equipment recommendations for discharge: Equipment issued: none Current therapy frequency recommendation(s) in acute: 5 times a week Activity Recommendations for outside of rehab session: 2 person to R side Precautions and Weightbearing Status: OT Existing Precautions/Restrictions: fall Lines/Tubes/Drains (Rehab Status): Telemetry, Arterial line Subjective: Agreeable to therapy, pleasant throughout Pain: General Pain Documentation (Adult, OB, Peds) Presence of Pain: denies pain/discomfort Presence of Pain Score (Auto-calculated): 0 Home Setting Residence: House Lives With: spouse First floor setup: bedroom Number of stairs to enter home: 0 Previous Level of Function Gross Functional Mobility: used device Assistive Device: straight cane Prior level ADL Overview: Independent with all ADLs Dominant Hand: Right Bed Mobility: independent Transfers: independent Stairs: independent Ambulation: independent with all needs IADL History IADLs: independent IADL Comments: Questionable historian Objective/Observation: Vitals/Vitals Responses to Treatment: VSS Vision Screen Currently wearing corrective lenses: No Clinical Observations: Left inattention. Able to scan to L side with mod to max cues Speech Speech: slurred speech (has baseline dysarthria) Hearing Hearing: hard of hearing Cognition Overall Cognitive Status: Impaired Arousal/Alertness: Delayed responses to stimuli Orientation Level: Oriented to place, Oriented to person Following Commands: Follows commands 50-75% of the time Safety Judgment: Decreased awareness of need for safety, Decreased awareness of need for assistance Awareness of Errors: Assistance required to identify errors made, Assistance required to correct errors made Deficits: Decreased awareness of deficits ADLs: ADL Assessment: Grooming Deficit ADL Anticipated Performance (ADLs not directly observed this session): Eating, Bathing, UE Dressing, LE Dressing, Toileting Eating Assistance: Minimal Grooming Assistance: Moderate Bathing Assistance: Maximal UE Dressing Assistance: Minimal LE Dressing Assistance: Maximal Toilet Assistance: Total Toileting Location: (chilel) Extremity Assessments: RUE Assessment RUE Assessment: Within Functional Limits, Strength WFL LUE Assessment LUE Assessment: Within Functional Limits, Strength WFL Balance: Sitting Balance Static Sitting-Level of Assistance: Contact guard Dynamic Sitting-Level of Assistance: Minimum assistance Skilled Rationale: Hand placement, Verbal cues, Sequencing, Positioning Sitting Balance Skilled Intervention/Details: retropulsive throughout Standing Balance Static Standing-Level of Assistance: Minimum assistance Dynamic Standing-Level of Assistance: Minimum assistance, 2-person assist Standing-Balance Support: Gait belt Skilled Rationale: Hand placement, Verbal cues, Tactile cues Neuro: Sensation Overall Sensation: (Extinction impaired) Fine Motor Coordination Additional Documentation: Yes Fine Motor Coordination Left Hand Thumb/Finger Opposition Skills: normal performance Right Hand Thumb/Finger Opposition Skills: normal performance Mobility Assessment: Supine to Sit Mobility Benton Level: Supine->Sit: minimum assist (75% patient effort) Bed Features/Set-up: Supine->Sit: Head of bed elevated Skilled Rationale: Sequencing, Hand placement, Verbal cues Skilled Intervention/Details: Supine->Sit: Cues for initation of tasks Transfer Assessment: Sit to Stand Transfer Benton Level: Sit->Stand: minimum assist (75% patient effort) Assistive Device: Sit->Stand: gait belt Skilled Rationale: Hand placement, Verbal cues, Tactile cues Skilled Intervention/Details: Sit->Stand: arm in arm assist Bed-Chair Transfer Benton Level: Bed<->Chair: minimum assist (75% patient effort) Physical Assist: Bed<->Chair: 2 person assist Assistive Device: Bed<->Chair: gait belt Skilled Rationale: Sequencing, Verbal cues, Tactile cues, Hand placement Skilled Intervention/Details: Bed<->Chair: steps to R side to chair CURRENT [facility] Daily Activity Inpatient Short Form Putting on/Taking Off Lower Body Clothin - A Lot of Assistance Bathin - A Lot of Assistance Toiletin - Total Assistance Putting on/Taking Off Upper Body Clothin - A Lot of Assistance Groomin - A Lot of Assistance Eatin - A Little Assistance CURRENT [facility] Activity Raw Score: 12 CURRENT [facility] Activity Functional Limitation/Modifier: 66.57% Currently Impaired in Daily Activity - CL Assessment & Plan: Patient was admitted for Dizziness, N/v, Pontine hemorrhage R BG and seen for therapy evaluation related to ADL performance, transfers. Exam findings include impairments in: aerobic capacity, balance, attention, coordination, cognitive impairments, endurance, transfers, strength. These impairments contribute to occupational performance limitations including bathing, dressing, grooming, toileting, functional mobility, ADL transfers. Patient will benefit from skilled occupational therapy to address these impairments, occupational performance limitations, and participation restrictions. Patient's rehab potential is: good. Patient Instruction/Education this session: Learners: Patient Education provided: Activity outside of therapy Teaching method: Verbal Education/Instruction Learner response: Needs review Learning considerations: Cognition Stroke education: Role of rehabilitation discipline Plan for next session: Address scanning Acute OT Goals Plan of Care by Lashawn Alvarez OT at 08/04/2025 11:25 AM Version 1 of 1 Problem: OT - ADLs Goal: Lower Body Dressing - Patient will complete lower body dressing tasks with contact guard assistance using adaptive equipment/compensatory strategies as needed for improved ability to complete self-care activities. Outcome: Ongoing Goal: Grooming - Patient will complete grooming in standing with minimal assistance for improved ability to safely complete ADLs. Outcome: Ongoing Goal: Bathing - Patient will perform full body bathing routine with minimal assistance while seated for improved ability to complete self-care activities Outcome: Ongoing Problem: OT - Transfers Goal: Transfers Sit/Stand - Patient will demonstrate good safety awareness during sit to/from stand functional transfer with minimal assistance and least restrictive device to demonstrate safe functional transfers. Outcome: Ongoing Problem: OT - Balance Goal: Balance - Standing - Patient will perform 10 minutes of functional task in standing with minimal assistance and good balance to promote safety and improved balance required for self-care activities. Outcome: Ongoing Problem: OT - Vision Goal: Visual Scanning ADL - Patient will employ use of visual compensatory strategies with no greater than min cues in 5/5 trials to increase participation and safety in ADLs. Outcome: Ongoing OT treatment consisted of the following to work and progress towards the above goal(s): OT Evaluation and Treatment Time OT Evaluation (High) Time Entry: 18 Evaluating Therapist: Lashawn Alvarez OT Additional Details: OT Co-Eval/Treatment Information Co-evaluation/co-treatment performed?: Yes, simultaneous billable skilled care was necessary due to medical complexity and functional deficits Other discipline: PT Rationale for need to co-eval/treat: coordination, postural control, cognition OT Evaluation Complexity Occupational Profile and Client History: High - extensive history Assessment of Occupational Performance: High (5 or more performance deficits) Clinical Decision/Performance Deficits: High (comprehensive assessments w/multiple treatment options) Time In: 824 Time Out: 842 Total Visit Time: 18 minutes Total Treatment Time (skilled, billable minutes): 18 minutes PPE used during patient interaction: gloves Patient location at end of session: chair Alarms on at end of session: chair alarm, RN aware Needs in reach. Upon discontinuation of Acute Care Occupational Therapy Services or patient discharge from the hospital this note represents the current Occupational Therapy Discharge Summary. Department of Pharmacy Admission Medication Reconciliation Note Patient: Esvin Guerrier Room/Bed: 1042/A Updated JOCKEY'S AGENT Med List: None Added to Home Medications: N/A Deleted from Home Medications: N/A Edits to Home Medications: N/A Other Comments: The patient's allergies were not reviewed at this time. I have reviewed the patient's home medication list with the following sources Dispense Report. The home medication list status is: complete and home med list marked as reviewed . A call to the pharmacy was not needed because the information compiled from listed sources corroborates the patient/caregiver interview. All changes to the home medication list have been updated in [facility]. Please feel free to contact me with any further questions. Name: Nick Menjivar [facility] Phone #: [phone] Date/Time: 08/04/2025 8:39 AM Time Spent: 10 minutes Acute Physical Therapy Evaluation Prior Gross Functional Mobility: used device Current AM-PAC score(s): CURRENT AM-PAC Mobility Raw Score: 15 Based on the above AM-PAC score(s) and PT clinical judgment, patient is a good candidate for discharge to Residential Facility Barriers to discharge home: Lack of 1st floor bedroom while patient is unable to safely navigate stairs, Patient needs assistance with medication management, Patient needs assistance with IADLs (see note below) Mobility equipment available at home: ADL equipment available at home: Equipment needed for discharge: to be determined Current therapy frequency recommendation in acute: PT Therapy Frequency: 5 times a week Activity Recommendations for outside of rehab session: x2 pivot to right Precautions and Weightbearing Status: Existing Precautions/Restrictions: fall Lines/Tubes/Drains (Rehab Status): Telemetry, Arterial line Patient Safety Communication Prior to Visit: Nursing Subjective: Patient supine in bed and agreeable to therapy. Pain: General Pain Documentation (Adult, OB, Peds) Presence of Pain: denies pain/discomfort Presence of Pain Score (Auto-calculated): 0 Home Setting Residence: House Lives With: spouse First floor setup: bedroom Number of stairs to enter home: 0 Previous Level of Function Gross Functional Mobility: used device Assistive Device: straight cane Prior level ADL Overview: Independent with all ADLs Dominant Hand: Right Bed Mobility: independent Transfers: independent Stairs: independent Ambulation: independent with all needs Objective/Observation: Vitals/Vitals Responses to Treatment: VSS O2 Device: room air Cognition Overall Cognitive Status: Impaired Arousal/Alertness: Delayed responses to stimuli Orientation Level: Oriented to person, Oriented to place Vision Screen Currently wearing corrective lenses: No Clinical Observations: left inattention; able to scan Speech Speech: slurred speech (baseline dysarthria) Hearing Hearing: hard of hearing Extremity Assessments: RLE Assessment RLE Assessment: Within Functional Limits LLE Assessment LLE Assessment: Within Functional Limits Sensation Sensation Comments: extinction impaired Mobility Assessment: Supine to Sit Mobility Benton Level: Supine->Sit: minimum assist (75% patient effort) Bed Features/Set-up: Supine->Sit: Head of bed elevated Skilled Rationale: Verbal cues, Hand placement, Sequencing Balance: Sitting Balance Static Sitting-Level of Assistance: Contact guard Dynamic Sitting-Level of Assistance: Minimum assistance Skilled Rationale: Tactile cues, Verbal cues, Positioning Standing Balance Static Standing-Level of Assistance: Minimum assistance Dynamic Standing-Level of Assistance: Minimum assistance, 2-person assist Standing-Balance Support: Gait belt, Hand-held assist Skilled Rationale: Verbal cues, Tactile cues, Hand placement, Technique of activity, Initiation and execution of task Transfer Assessment: Sit to Stand Transfer Benton Level: Sit->Stand: minimum assist (75% patient effort) Assistive Device: Sit->Stand: gait belt Skilled Rationale: Verbal cues, Tactile cues, Sequencing Bed-Chair Transfer Benton Level: Bed<->Chair: minimum assist (75% patient effort) Physical Assist: Bed<->Chair: 2 person assist Assistive Device: Bed<->Chair: gait belt Skilled Rationale: Verbal cues, Tactile cues, Sequencing Skilled Intervention/Details: Bed<->Chair: steps to right Gait/Functional Mobility: Gait Assessment Benton Level: Gait: minimum assist (75% patient effort) Physical Assist: Gait: 2 person assist Assistive Device: Gait: hand held assist Ambulation Distance (Feet): 4 Gait Deviations Identified: decreased trena, decreased gait speed, decreased heel strike, decreased stride length Gait Skilled Rationale: verbal, tactile, upright posture, increase step length Stairs: CURRENT [facility] Basic Mobility Inpatient Short Form Turning over in bed: 3 - A Little Assistance Moving from lying on back to sittin - A Little Assistance Moving to and from bed to chair: 3 - A Little Assistance Sitting/standing from chair: 3 - A Little Assistance Walk in hospital room: 2 - A Lot of Assistance Climbing 3-5 steps with a railin - Total Assistance CURRENT [facility] Mobility Raw Score: 15 CURRENT [facility] Mobility Functional Limitation: 57.70% Impaired in Basic Mobility Interventions: Assessment & Plan: Patient was admitted for Dizziness, N/v, Pontine hemorrhage R BG and seen for therapy evaluation related to impaired functional mobility. Exam findings include impairments in: Balance, Transfers, Gait/Locomotion. These impairments contribute to functional limitations including Difficulty stair climbing/descent, Decreased ambulation distance/endurance, Increased fall risk, Limited standing tolerance, Limited sitting tolerance, Difficulty with bed mobility, Difficulty with transfers, Decreased functional mobility. Current clinical presentation is Evolving - changing/inconsistent clinical characteristics (Moderate). Patient history factors impacting Plan Of Care include . Patient will benefit from skilled physical therapy to address these impairments, functional limitations, and participation restrictions and has good rehab potential to achieve therapy goals. Planned Therapy Interventions: balance training, bed mobility training, functional activity tolerance, gait training, neuromuscular re-education, transfer training Patient Instruction/Education this session: Learners: Patient Education provided: Plan of care, Role of this discipline Teaching method: Verbal Education/Instruction Learner response: Needs review Learning preferences: Auditory Learning considerations: Cognition Stroke education: Recovery process Plan for next session: Progress transfers and gait Acute PT Goals Plan of Care by Oniel Diaz PT at 08/04/2025 8:26 AM Version 1 of 1 Problem: PT - General Goals Goal: Supine <-> Sit Transfers - Patient will perform supine to/from sit transfers with modified independence and without use of hospital bed features in order to improve functional mobility and safety. Outcome: Ongoing Goal: Sit <-> Stand Transfers - Patient will perform sit to/from stand transfers with standby assistance and least restrictive device in order to improve functional mobility and safety. Outcome: Ongoing Goal: Stand/Squat Pivot Transfers - Patient will perform stand pivot transfer to/from bed/chair/commode with standby assistance and least restrictive device in order to improve functional mobility and safety. Outcome: Ongoing Goal: Ambulation - Patient will ambulate 75 feet with standby assistance and least restrictive device to improve ability to safely navigate home and community. Outcome: Ongoing PT treatment consisted of the following to progress towards the above goal(s): PT Evaluation and Treatment Time PT Evaluation (Moderate) Time Entry: 17 Evaluating Therapist: Oniel Diaz PT Additional Details: PT Co-Eval/Treatment Information Co-evaluation/co-treatment performed?: Yes, simultaneous billable skilled care was necessary due to medical complexity and functional deficits Other discipline: OT Rationale for need to co-eval/treat: postural control Evaluation Complexity Components History: High (3 personal factors and/or comorbidities) Body Systems Review: Moderate (Addressing a total of 3 or more elements) Clinical Presentation: Evolving - changing/inconsistent clinical characteristics (Moderate) Clinical Decision Making Complexity: Moderate Time In: 825 Time Out: 08 Total Visit Time: 17 minutes Total Treatment Time (skilled, billable minutes): 17 minutes PPE used during patient interaction: gloves Patient location at end of session: chair Alarms on at end of session: chair alarm, RN aware Needs in reach. Upon discontinuation of Acute Care Physical Therapy Services or patient discharge from the hospital this note represents the current Physical Therapy Discharge Summary. NEUROCRITICAL CARE DAILY NOTE HOSPITAL VISIT DEMOGRAPHICS Patient: Esvin Guerrier Jr. Code status: Full Code Admission date: 08/03/2025 9:35 AM Hospital days: LOS: 1 day HISTORY OF PRESENT ILLNESS Esvin Guerrier Jr. is a 64 y.o. male with a past history of L basal ganglia ICH (2019), HTN, throat cancer, partially deaf, and hepatitis c who presented to OSH with c/o dizziness, N/V, evaluated for stroke alert with LKW 2400 08/02/25, reportedly non-adherence to anti-HTN medications. BP on presentation 220/116, CT H revealed a pontine hemorrhage and small R basal ganglia hyperdensity. 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 INTERVAL HISTORY SINCE ADMISSION 08/03/2025: admitted to NCCU, BP responded well to cardene from ED, BP 98/77 (84) on arrival to NCCU, weaning cardene to SBP <140. Lower Plt goal of 75 in the setting of chronic thrombocytopenia 08/04: YONI. MRI with and without contrast, CT H dual energy, RUQ to evaluate for cirrhosis, chronic hepatitis panel, HIV, FEEs with BOAT RIGGER, NPO for RUQ US and until FEEs completed. Update Plt goal to 50. Liberalizing BP goal to [address] H[address] Consider PO HTN agent tomorrow when able to get FEEs and have PO intake. PHYSICAL EXAM GENERAL: Alert, no acute distress HEENT: normocephalic, no scalp wounds nor lesions CARDIO: +S1S2, RRR, no murmurs, no edema PULM: clear to auscultation bilaterally, equal chest rise; RA ABDOMINAL: soft, nontender, nondistended, active bowel sounds, LBM 08/01 EXTREMITIES: scab to R jarquin POA, dark purple ecchymosis to L back. VASCULAR: 2+ distal pulses, capillary refill <3 seconds, NEURO: Mental status: alert; oriented to person, place, year, and month; good attention Speech/language: dysarthric, comprehension intact; object naming intact; repetition intact Cranial nerves: CN II: Visual gutierrez intact to confrontation. 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 No nystagmus. CN V: Facial sensation intact to light touch. CN VII: Facial strength normal with symmetric movement. CN VIII: Hearing is grossly intact. CN IX and X: Soft palate elevates symmetrically in the midline CN XI: Shoulder shrug and sternocleidomastoid strength 5/5 bilaterally CN XII: Tongue is midline with normal movement; Motor: Normal bulk and tone. No UE drift. Sensation: Extremity sensation intact throughout. 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 - OK for DVT ppx 24h afer stability CT H. - OP follow up with Dr. Martinez in [address] H. - Daily NIHSS: NIH Stroke Scale: NIH Level of Conciousness (Provider): 0 NIH LOC Questions (Provider): 0 NIH LOC Commands (Provider): 0 NIH Best Gaze (Provider): 0 NIH Visual (Provider): 0 NIH Facial Palsy (Provider): 0 NIH Left Arm Motor (Provider): 0 NIH Right Arm Motor (Provider): 0 NIH Left Leg Motor (Provider): 0 NIH Right Leg Motor (Provider): 0 NIH Limb Ataxia (Provider): 0 NIH Sensory (Provider): 0 NIH Best Language (Provider): 1 NIH Dysarthria (Provider): 2 NIH Extinction and Inattention (Provider): 0 NIH Total Score (Provider): 3 - Imaging: - 08/03 CTA H/N: artherosclerosis contribute to severe stenosis of R ICA at the bifurcation and the origin of the left CCA, with further mild/mod stenosis involving more distal segments. 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 Known severe right vertebral arterial stenosis to prior exam - 08/03 1004: Initial CT H: hyperdensities within right basal ganglia while could be hemorrhage but could be calcification and valentin are concerning for acute hemorrhage. - 08/03 1600: 6H-stability CT H: stable. - 08/04 CTH Dual energy P - 08/04 MRI B with and without contrast P - Cytotoxic Cerebral Edema Management: - Goal Na 135 - 145; monitor Na Q24H Recent Labs 08/03/25 1009 08/04/25 0025 SODIUM 135 140 OSMOLALITY 290 296 CHLORIDE 102 106 - Hemorrhage presumably 2/2 uncontrolled HTN etiology and stimulant use disorder; evaluation for cause and source: - Repeat TTE (08/04/25) EF 65-70%, agitated saline contrast study is positive for a right to left shunt. (see cards) - LDL 90 defer at this time, consider prior to discharge. (see cards) - HA1C level 5.2 (see endo) - Defer antiplatelet therapy and therapeutic anticoagulation - UDS positive on admission for methamphetamines, cocaine, and marijuana - NS ok with DVT ppx to start 08/05 (see Heme) Pain/Sedation management: - Tylenol 650mg Q4H PRN - reports previous use of gabapentin, found it to be ineffective Psych: pseudobulbar affect Fluctuation of inappropriate laughing/crying POA, daughters endorse this is his baseline. Stimulant use disorder Urine tox screen pos on admission for methamphetamines, cocaine, and marijuana. Pt endorses last use was 7 days [employer]OCKEY[employer] AG[employer] while on a fishing trip with the exception of daily marijuana. Hx of ETOH Pt denies recent alcohol use, daughters endorse sobriety for years with relapse 2 months ago with now 3x/wk drinking. Lab Results Component Value Date ETOHSERUM <10 08/03/2025 Pulm: No Current Issues O2 Sat (%): 91 % (08/04 0650) O2 Device: room air (08/04 0400) - Goal SpO2 >92%; wean FiO2 as tolerated - [id number], encourage pulmonary toileting Cards: HTN Urgency (POA, resolved) Essential HTN BP 220/116 on presentation to OSH, Temp: [97.5 F (36.4 C)-98.4 F (36.9 C)] 98.4 F (36.9 C) Pulse (Heart Rate): [68-93] 85 Resp Rate: [16-37] 24 BP: (98-164)/(55-93) 135/63 Arterial Line (1) BP: (120-150)/(55-71) 134/58 O2 Sat (%): [90 %-99 %] 91 % Weight: [97.3 kg (214 lb 8.1 oz)] 97.3 kg (214 lb 8.1 oz) - Goal SBP <140, MAP >65, consider liberating SBP <[address] H. - Home antihypertensives: none, reviewed filled history with no recent fills. - Current regimen: - PRN labetalol and hydralazine - Consider PO regimen following FEEs, tentatively planned for 08/05 since pt NPO for RUQ ABD US 08/04. - 09/2020 TTE: EF 55-60% - Repeat TTE (08/04/25) EF 65-70%, agitated saline contrast study is positive for a right to left shunt. - 08/03 ECG: NSR - 08/03 troponin 9 - Statin Therapy: Indicated if LDL >70, defer for now, consider prior to discharge; Recent Labs 08/03/25 1009 CHOLESTEROL 154 TRIG 119 HDL 40 Renal/: No Current Issues Fluid Balance: - Goal: euvolemia - Maintenance: 0.9NS @ 75cc/hr (continue while NPO, awaiting FEEs) Intake/Output Summary (Last 24 hours) at 08/04/2025 0707 Last data filed at 08/04/2025 0600 Gross per 24 hour Intake 2653.72 ml Output 565 ml Net 2088.72 ml - Daily Chem 10; electrolytes replaced per NCCU protocol Recent Labs 08/03/25 1009 08/04/25 0025 SODIUM 135 140 POTASSIUM 4.3 3.4* CHLORIDE 102 106 CO2 24 24 BUN 20 22 CREATSERUM 1.24 1.27 PHOSPHORUS -- 2.8 MAGNESIUM -- 1.8 ICA -- 4.25* GI/Nutrition: Reported bright red bleeding per rectum recent <6 months, per pt and family was evaluated at OSH and source believed to be hemorrhoids, no s/sx of bleeding on admission. Hgb 14 on admission. Recent Labs 08/03/25 1009 ALBUMIN 4.0 BILIDIRECT 0.1 BILITOTAL 0.6 ALKPHOS 59 ALT 31 AST 34 TP 7.5 - DIET NPO WITHOUT meds - [place] Swallow Screening Result: failed=NPO awaiting BOAT RIGGER consult 2/2 cough with thin liquids with [place] on admission. Previously seen and passed FEES with BOAT RIGGER (2019) for thin liquids with regular diet. - BOAT RIGGER following, plan for FEE (08/04) Bowel regimen: - Last Bowel Movement: ([employer]) - Senna, prn miralax Endo: No Current Issues - Goal blood glucose 140-180 - Insulin SSI: monitor for initiation Recent Labs 08/03/25 1009 08/04/25 0025 08/04/25 0545 GLUCOSE 145 114 136 HGBA1C 5.2 -- -- ID: Acute Leukocytosis 2/2 reactive Recent Labs 08/03/25 1009 08/04/25 0025 WBC 10.63* 10.85* - Temp (24hrs), Av.8 F (36.6 C), Min:97.5 F (36.4 C), Max:98.4 F (36.9 C) - PRN Tylenol for T>100.4F - Most recent and positive cultures: Date Collected Source Result Date Finalized - Antiinfectives: Start Date Antiinfective Coverage Course Length Stop Date Heme/Onc: Chronic Thrombocytopenia 2/2 Hepatitis C Virus Baseline Plt ~ 80 (2019). Evaluated by heme on prior admission, no further recs. Pt denies current or remote hx of IV drug use on admission. Recent Labs 08/03/25 1009 08/03/25 1649 08/04/25 0025 08/04/25 0443 WBC 10.63* -- 10.85* -- RBC 4.99 -- 4.69 -- HGB 15.0 -- 14.0 -- HCT 43.2 -- 40.6 -- PLATELET 47* < > 60* 59* PT 13.7 -- -- -- PTT 30.2 -- -- -- INR 1.0 -- -- -- < > = values in this interval not displayed. - Goal plt 50, INR <1.4, Hgb >7 - Blood products given: 4 pools plt (08/04/2025) - 08/04 RUQ Abd US to r/o cirrhosis P - HIV panel P - Hepatits PCR and chronic battery P DVT prophylaxis: - defer chemical PPx for acute ICH, Will initiate if repeat CT H stable 08/04 - SCD's Musc: No Current Issues - PT/OT consulted and following - Current Activity Order: advance as tolerated Fall Risk: - Assessed for patient fall risk and discussed safety measures during rounding. - known gait disturbance, ambulates with a cane at baseline. Social/Dispo: - Code status: Full Code - Discharge planning per PCRM/SW. Nicotine Dependence Use per Day: 1ppd Patient is not ready to quit Discussed pharmacotherapy. Offered Rx to be sent to pharmacy of choice. We discussed health risks and resources. Offered referral to [facility] Smoking Cessation clinic (AMB REFERRAL TO SMOKING CESSATION) Spent 3-5 minutes counseling on this topic Nicotine patch Quality Self-Check Complexity. Hypokalemia - Continue to monitor and replete. Hypocalcemia - Continue to monitor and replete. Thrombocytopenia - Continue to monitor. Obesity, class I Body mass index is 30.78 kg/m . - Follow with PCP for dietary and lifestyle modifications. Wound Documentation Wound 08/03/25 1230 Lateral;Left;Lower Back (Active) Date First Assessed/Time First Assessed: 08/03/25 1230 Wound Location Orientation: Lateral;Left;Lower Location: Back Any conditions listed below are present on admission unless otherwise specified. . ICU Checklist: [x] Assess pain Presence of Pain: denies pain/discomfort Presence of Pain Score (Auto-calculated): 0 [x] Both SAT & SBT [x] Choice of analgesia/ sedation See neuro [x] Delirium Overall CAM-ICU: Negative [x] Early mobility PT/OT consulted?: Yes CURRENT AM-PAC Mobility Raw Score: 15 CURRENT AM-PAC Mobility Functional Limitation: 57.70% Impaired in Basic Mobility [x] Family Engagement Primary Emergency Contact: Amberly Allen Last updated: 08/03 daughters updated POA at bedside. [x] Get lines out Arterial line: inserted 08/03/2025, (indication: hemodynamic monitoring) Central lines: none Discussed with NCCU Attending, Dr. Jimmy Charles, SENIOR CLINICAL DATA COORDINATOR-FLIGHT MANAGER 09/22/25 7:07 AM Check the treatment team to find the assigned neurocritical care provider (resident, fellow, BOX SEALING MACHINE OPERATOR, or PA) or page the corresponding number below NCC1 (Beds [phone]): pager #[phone] NCC2 (Beds [phone], 12 Jorge, and overflow): pager #[phone] I have seen and examined the patient. I have reviewed the chart for relevant labs, images and medications. I have reviewed the resident/BOX SEALING MACHINE OPERATOR note and agree with the assessment/plan with the following additions. Background:64M sudden spontaneous pontine ICH with HTN to 240's in [facility] ED. Recent fishing trip with his buddies; had EtOH hx prior and had been sober, but had some EtOH on this trip and cocaine and methamphetamine detected on tox screen. Chronic thrombocytopenia felt 2/2 chronic HCV cirrhosis. 24h events:admitted Exam:dysarthric (per family he's at his baseline); emotional, inappropriate laughter f/b tears; FC X 4 with good strength Pt is a 64F who is critically ill 2/2 pontine hemorrhage at risk for neurological decline and loss of airway. Plan includes serial imaging, repeat HCT in am; BP control, goal now is < 140; MRI B when able; at home, ambulates with a cane. For positive tox screen and history watch for s/s withdrawal. Realistic plt goal is < 75 for him at this time. Total critical care time spent is 35 minutes. documented in this encounter [facility] 08-08-2025 Plan of care note Problem: OT - ADLs Goal: Lower Body Dressing - Patient will complete lower body dressing tasks with contact guard assistance using adaptive equipment/compensatory strategies as needed for improved ability to complete self-care activities. Outcome: Progressing Goal: Grooming - Patient will complete grooming in standing with minimal assistance for improved ability to safely complete ADLs. Outcome: Progressing Goal: Bathing - Patient will perform full body bathing routine with minimal assistance while seated for improved ability to complete self-care activities Outcome: Progressing Problem: OT - Transfers Goal: Transfers Sit/Stand - Patient will demonstrate good safety awareness during sit to/from stand functional transfer with supervision assistance and least restrictive device to demonstrate safe functional transfers. Outcome: Progressing Problem: OT - Balance Goal: Balance - Standing - Patient will perform 10 minutes of functional task in standing with supervisionassistance and good balance to promote safety and improved balance required for self-care activities. Outcome: Progressing Problem: OT - Vision Goal: Visual Scanning ADL - Patient will employ use of visual compensatory strategies with no greater than min cues in 5/5 trials to increase participation and safety in ADLs. Outcome: Progressing Problem: PT - General Goals Goal: Supine <-> Sit Transfers - Patient will perform supine to/from sit transfers with modified independence and without use of hospital bed features in order to improve functional mobility and safety. Outcome: Progressing Goal: Sit <-> Stand Transfers - Patient will perform sit to/from stand transfers with standby assistance and least restrictive device in order to improve functional mobility and safety. Outcome: Progressing Goal: Stand/Squat Pivot Transfers - Patient will perform stand pivot transfer to/from bed/chair/commode with standby assistance and least restrictive device in order to improve functional mobility and safety. Outcome: Progressing Goal: Ambulation - Patient will ambulate 75 feet with standby assistance and least restrictive device to improve ability to safely navigate home and community. Outcome: Progressing Problem: BOAT RIGGER - Cognition Goal: Metacognition - Patient will identify at least 3 deficits related to medical condition and how deficits will impact ability to return home with fading cues to improve safety and independence Outcome: Progressing Goal: Ongoing Assessment - Patient will participate in ongoing dynamic assessment of reading, writing, and cognitive-linguistic skills across 1 session to better assess deficits and most appropriately guide BOAT RIGGER plan of care Outcome: Progressing Problem: BOAT RIGGER - Motor Speech Goal: Intelligibility Strategies - Patient will teach back and utilize intelligibility strategies in structure and in conversation to improve intelligibility to at least 80%, with minimal cues Outcome: Progressing Problem: Dysphagia Goal: Challenge - Pt will accept trials of thin liquids (independently and with liquid wash of regular), given min cues for use of strategies to improve bolus timing of swallow initiation with no signs of aspiration to determine readiness for advancement Outcome: Progressing Goal: Patient will complete 2 sets of 5 Jaw Opening Exercise (KEMAL) to improve the suprahyoid muscle strength and hyolaryngeal elevation with min cues over 1-2 weeks. Outcome: Progressing Goal: Shaker/CTAR - Patient will complete 30 reps x 3 sets, 60 sec rest break between sets followed by 60 second hold x3 sets, 60 sec rest break between sets of CTAR or Shaker exercise for improved hyoid excursion given minimal cues Outcome: Progressing Problem: Oral Intake Inadequate Goal: Improved Oral Intake Outcome: Progressing Problem: Fall Injury Risk Goal: Fall/Trauma/Injury Risk: Absence of Trauma/Injury/Falls Description: Patient will demonstrate the desired outcomes. Outcome: Progressing [facility] 08-07-2025 Nurse Note Concerns for patient's being verbally abusive towards patient. Around 1700, staff member overheard patient's being verbally abusive towards patient. Staff member checked in on patient, who was tearful at the time. Other staff members heard yelling/cussing from the room ( was reportedly on the phone with daughter), and patient's family members in the room next door heard the patient crying and were concerned, asking staff if patient was okay. Secure chat message sent to social work, provider, and patient experience about concerns for the patient being verbally abused. Note blocked for patient safety d/t visibility in MyChart. [facility] 08-07-2025 Plan of care note Problem: Oral Intake Inadequate Goal: Improved Oral Intake Outcome: Progressing Intervention: Promote and Optimize Oral Intake Flowsheets (Taken 08/07/2025 1702) Oral Nutrition Promotion: rest periods promoted social interaction promoted physical activity promoted Nutrition Interventions: meal set-up provided meals from home/family encouraged food preferences provided Problem: Fall Injury Risk Goal: Fall/Trauma/Injury Risk: Absence of Trauma/Injury/Falls Description: Patient will demonstrate the desired outcomes. Outcome: Progressing [facility] 08-07-2025 Plan of care note Problem: PT - General Goals Goal: Stand/Squat Pivot Transfers - Patient will perform stand pivot transfer to/from bed/chair/commode with standby assistance and least restrictive device in order to improve functional mobility and safety. Outcome: Ongoing Problem: PT - General Goals Goal: Supine <-> Sit Transfers - Patient will perform supine to/from sit transfers with modified independence and without use of hospital bed features in order to improve functional mobility and safety. Outcome: Progressing Goal: Sit <-> Stand Transfers - Patient will perform sit to/from stand transfers with standby assistance and least restrictive device in order to improve functional mobility and safety. Outcome: Progressing Goal: Ambulation - Patient will ambulate 75 feet with standby assistance and least restrictive device to improve ability to safely navigate home and community. Outcome: Progressing [facility] 08-06-2025 Nurse Note Discharge canceled due to BP elevation. NV team will re-evaluate tomorrow. [facility] 08-06-2025 Nurse Note Stroke patient education has been reviewed and all required elements are complete and personalized. Care plan documentation complete and patient adequate for discharge. Next dose medication details have been added to the AVS as appropriate. Cosigned by Ariane Richards RN at 08/06/2025 4:18 PM EDT [facility] 08-06-2025 Plan of care note Problem: Adult Inpatient Plan of Care Goal: Plan of Care Review Outcome: Adequate for Discharge Goal: Patient-Specific Goal (Individualized) Outcome: Adequate for Discharge Goal: Absence of Hospital-Acquired Illness or Injury Outcome: Adequate for Discharge Goal: Optimal Comfort and Wellbeing Outcome: Adequate for Discharge Goal: Readiness for Transition of Care Outcome: Adequate for Discharge Problem: Stroke, Intracerebral Hemorrhage Goal: Optimal Coping Outcome: Adequate for Discharge Goal: Effective Bowel Elimination Outcome: Adequate for Discharge Goal: Optimal Cerebral Tissue Perfusion Outcome: Adequate for Discharge Goal: Optimal Cognitive Function Outcome: Adequate for Discharge Goal: Effective Communication Skills Outcome: Adequate for Discharge Goal: Optimal Functional Ability Outcome: Adequate for Discharge Goal: Optimal Nutrition Intake Outcome: Adequate for Discharge Goal: Optimal Pain Control and Function Outcome: Adequate for Discharge Goal: Effective Oxygenation and Ventilation Outcome: Adequate for Discharge Goal: Improved Sensorimotor Function Outcome: Adequate for Discharge Goal: Safe and Effective Swallow Outcome: Adequate for Discharge Goal: Effective Urinary Elimination Outcome: Adequate for Discharge [facility] 08-06-2025 Hospital Discharge instructions Loren Gillette MD - 08/06/2025 2:30 PM EDT Please take these discharge instructions to your primary care doctor follow appointment to show them,keep them for your reference and refer to them often for follow up appointments. It is best to write your appointments on a personal calendar so you do not miss them. Call if you need to change any appointments please. Keep an up-to-date medication list with you at all times. Home Instructions: - Check your blood pressure at home 3 times daily. Goal is for the top number to be less than 130. If it is persistently elevated above 160 or if it is ever above 180, call your PCP - If you do not yet have a PCP and blood pressures are persistently elevated above 160, you can increase the hydrodiuril to two tablets daily. Watch out for dizziness or light headedness when increasing the dose - Please establish with a PCP and make an appointment to see as soon as possible. See some resources below. New Medications: - To control your blood pressure: - Losartan (Cozaar) 100 mg daily, - Nifedipine (Procardia) 60 mg daily, and - hydrochlorothiazide (hydrodiuril) 25 mg daily - To control your cholesterol: atorvastatin 80 mg daily Follow-up - Follow up with neurovascular, neurosurgery, PT, OT, speech language pathology, and infectious disease, see below Activity -- Please follow these instructions: -Advance your activity as you can tolerate - You may walk all you want. You may go up and down the steps. Use the railing for support - It is normal for your energy level and sleep patterns to change after a stroke - Take rest periods during the day as needed - Complete recovery may take several weeks, months, up to a year. Patience is gregory. Recommended Method of Nutrition: PO Intake: oral nutrition and hydration Recommended Diet Grade: dysphagia- soft and bite sized (IDDSI 6) Recommended Liquid Consistency: liquid- thin (IDDSI 0) Recommended Medication Administration (as appropriate per MD): Crushed, Whole in puree Oral Swallow Strategies: Bolus volume change (smaller quantity) Pharyngeal Swallow Strategies: Multiple swallows, Volitional cough/throat clear Mealtime Strategies: Assist with tray set up Type of Cues/Supervision: 1:1 assistance, 1:1 supervision Level 6- Soft and Bite Sized: Soft, tender, and moist, but with no liquid leaking/dripping from the food Ability to 'bite off' a piece of food is not required Ability to chew 'bite-sized' pieces so that they are safe to swallow is required 'Bite-sized' pieces no bigger than 1.5 cm x 1.5 cm in size Food can be mashed/broken down with pressure from fork A knife is not required to cut this food Examples: Meat cooked tender/chopped, fish cooked soft enough to break, fruit soft/chopped to pieces, vegetables steamed/boiled, cereal with no large pieces/texture fully softened/excess liquid drained, and rice served with a thick/smooth/non-pouring sauce to moisten/hold it together No regular dry break (high choking risk) Avoid the following food textures that pose a choking risk: mixed thin/thick textures, hard/dry, tough/fibrous, chewy, crispy, crunchy, sharp/spiky, crumbly, pips/seeds, food with skins/outer shell, food with husks, bone/gristle, round/long-shaped, sticky/gummy, stringy, floppy, crust formed during cooking/heating, juicy, and large/hard lumps For more information, we encourage you to visit iddsi.org and review patient handouts designed for adults (found under resources). Stroke Education: visit go.os.edu/wlba0100 What are the most common symptoms of stroke? The following are the most common symptoms of stroke. However, each individual may experience symptoms differently. If any of these symptoms are present, call 911 (or your local ambulance service) immediately. Treatment is most effective when started immediately. Symptoms may be sudden and include: -Weakness or numbness of the face, arm, or leg, especially on one side of the body -Confusion or difficulty speaking or understanding -Problems with vision such as dimness or loss of vision in one or both eyes -Dizziness or problems with balance or coordination -Problems with movement or walking -Severe headaches with no other known cause, especially if sudden onset All of the above warning signs may not occur with each stroke. Do not ignore any of the warning signs, even if they go away - take action immediately. The symptoms of stroke may resemble other medical conditions or problems. Always consult your physician for a diagnosis. We have provided both written and verbal education to the patient and family regarding ischemic and hemorrhagic strokes. We have discussed the warning signs/symptoms as well as causes of stroke. We have discussed the importance of activating 911/EMS in the event of these symptoms. We have reviewed the patient's personal risk factors as well as education on reducing these risk factors. [facility] Personalized Stroke Treatment Plan My Stroke Type: [] Ischemic Stroke (Blockage of blood flow to the brain) [x] Hemorrhagic Stroke (Bleeding in the brain) [] TIA- Transient Ischemic Attack (mini-stroke) My Risk Factors Include: [x] High Blood Pressure [] Diabetes [x] High Cholesterol [] Heart Disease [] Atrial Fibrillation (Irregular Heart Rate) [] Smoking/Vaping/E-Cigarettes [] Obesity [] Clotting Disorder [] Alcohol Abuse [x] Drug Abuse [x] Prior History [] Family History [] Obstructive Sleep Apnea My Follow-Up Treatment Goals: [x] Blood Pressure < 140/90 [] Stop Smoking, Vaping, and/or using E-Cigarettes Immediately [x] LDL < 70 [] HgA1C levels < 7% [] Decrease BMI to < 25 [x] Take all ordered medications [x] Avoid non-prescription or [id number] medication not cleared by your physician [x] Limit Alcohol use to no more than 1 drink per day for females and 2 drinks per day for males [x] Do not drive until cleared [x] Follow up with PCP (Primary Care Provider) within a week of discharge to home [x] Follow-up with Neurovascular (Stroke Doctor) [x] Follow-up with Occupational,physical and speech therapy if ordered [x] Watch out for depression and seek treatment if needed Patient Stroke Resources CONTACTS FOR NEUROVASCULAR SERVICE: - Please first consider reaching out to your PCP (Primary Care Provider) for ongoing care needs and guidance. - You may call the neurovascular doctors office at [phone], if you have questions Mon-Fri between 8:30 am and 4:30 pm. - For off hours or the weekend you may call the office or the hospital automation machine operator at and ask for the stroke resident ceramic maker demonstrator to be paged. - If you have any other questions or needs, please call Keyona Patel RN, Stroke Nurse Navigator at [phone] Mon-Fri between 7:00am and 3:00pm. - Additional assistance may be found by reaching out to our Case Management Office at [phone]. *In the event of an Emergency: If you have a physical or psychiatric emergency call 221 or go to your local emergency department. You should also call your outpatient provider's emergency number. Other reference numbers: [facility] Intake Office at [phone]; [facility] at [phone]; or Suicide Prevention Hotline at 063-720-5349. *Helpful phone numbers: Free Crisis Hotline: 5-722-864-TALK ( ) Suicide Hotline: 555.780.1803 Seniors Suicide Hotline: 652.378.5318 [facility] Youth: [phone] [facility] [place]: 566.180.6089 (free counseling) [facility] Access Hotline: 963-022-MANQ (654-212-9686) 24-hour crisis text hotline: Text the word 4hope to 938-967 for crisis support. Texting this number is free if you have [employer], [employer], [employer] or [employer]. [facility] Financial Assistance: If you want to learn more about these programs, please call .There are three programs to help you with the cost of your medical care: Medicaid, Hospital Care Assurance Program (HCAP) & tiffany If you are without Insurance and believe you may qualify for Medicaid/public assistance: The [facility] Department of Job and Family Services can now process sher (TANF), food (SNAP) and Medicaid Applications over the phone. Please call [phone] ([id number]) and apply over the phone or apply online at www.benefits.[place].gov. Monday-Monday 8am-12pm noon. Medication Assistance Programs [employer] members can buy 100+ common prescriptions for FREE, $3 or $6. Annual membership is $36 for individuals and $72 for families (up to 6 people, including pets). Sign up online or enroll at your nearest pharmacy! -[employer], web site can provide a significant number of coupons for medications at a much lower carranza. [place] Department of Aging The Department of Aging administers programs and services to meet the needs of older [place]. Services and resources offered per county may include transportation, housekeeping, meals and nutrition, personal care, case management, safety monitoring, home medical equipment, legal services, financial rep, health and wellness, education, caregiver support, respite care, etc. Call to be connected to the [facility] agency on aging serving your community or visit [employer].[place].gov/find-services. Request a consultation with a community resource expert at ltssi.age.[place].gov/ [facility] Stroke Support The [facility] Stroke Support Group is for stroke survivors, friends, and family members. Meets on the Monday of each month from 6:30pm-7:30pm at [facility] ([address]; [place] [address]). Contact Deonna Morrison, at [phone] or [email or web address]. If you are outside of the [place] area, contact The [place] [employer] at www.stroke.org or 6-639-6-STROKE or for support groups in your area. You may also refer to the Your Care after a Stroke education booklet at go.[email or web address]/cgxj9937 for additional resources. Hospital Course (a summary of what happened while you were in the hospital) You were admitted to the hospital on August 03, 2025 because of sudden nausea, vomiting, headache, and trouble with balance. A brain scan showed a small new bleed (stroke) in the brainstem (valentin), as well as an older, stable bleed in a different part of the brain. This type of bleeding is most often caused by high blood pressure over time. During your stay, your blood pressure was lowered with IV medications and then switched to oral medicine (Cozaar). You were also started on a cholesterol-lowering medication (atorvastatin). Heart and blood vessel testing showed a normal heart pumping function and a small opening in the heart (PFO), which is common and usually does not require treatment. You were also found to have some narrowing of the neck arteries, more on the right than the left. You did not need surgery. Your hospital course was stable. Your speech and swallowing were checked; you are safe to eat a soft diet. Physical and occupational therapy found that you need some help with walking and daily activities. While rehab in a fdc facility was in recommended, you and your family preferred to go home, which we recommend with 24-hour assistance and outpatient occupational therapy. Counseling and Next Steps: You have new medication changes: Take your blood pressure medicine (losartan/Cozaar and nifedipine/Procardia) and cholesterol medicine (atorvastatin) every day as prescribed. Avoid stimulant drugs (methamphetamine, cocaine) and smoking tobacco. Continued use makes another brain bleed much more likely and can be life-threatening. Alcohol and marijuana should also be avoided or strictly limited, as they may interfere with recovery. Follow up with your doctors for blood pressure checks, liver disease monitoring, and stroke prevention. Continue therapy as arranged to help with strength and mobility. Watch for warning signs: sudden weakness, numbness, trouble speaking, vision changes, or severe headache -- call 911 right away. Primary Care Provider Our Care Management staff have determined that you do not have a Primary Care Physician. We strongly recommend establishing with a PCP as soon as possible. There are providers available for primary care through your local [facility] who may have availability. Please call [facility] at [phone] to make an appointment. You can also contact your insurance provider for assistance with finding a PCP. documented in this encounter [facility] 09-24-2025 Plan of care note Problem: Dysphagia Goal: Challenge - Pt will accept trials of thin liquids (independently and with liquid wash of regular), given min cues for use of strategies to improve bolus timing of swallow initiation with no signs of aspiration to determine readiness for advancement Outcome: Ongoing Goal: Patient will complete 2 sets of 5 Jaw Opening Exercise (KEMAL) to improve the suprahyoid muscle strength and hyolaryngeal elevation with min cues over 1-2 weeks. Outcome: Ongoing Goal: Shaker/CTAR - Patient will complete 30 reps x 3 sets, 60 sec rest break between sets followed by 60 second hold x3 sets, 60 sec rest break between sets of CTAR or Shaker exercise for improved hyoid excursion given minimal cues Outcome: Ongoing [facility] 08-06-2025 Nurse Note Images from the original note were not included. I visited with Esvin Guerrier Jr. this afternoon as the Stroke Nurse Navigator for the [facility] at the [facility]. I provided a [facility] magnet and together we reviewed the signs and symptoms of a stroke and when to call 911. I indicated that I would like to call post hospitalization to follow up with the patient and inquired whom best to contact (patient and patient's spouse) as well as the best number to reach this person. Patient is out of network with [facility] for [facility] follow up. Patient and spouse would prefer he follow up in [place] and within network. Referral faxed to Dr. Alberto's office in [place]. Outpatient therapies faxed close to home. [facility] stroke resources given to spouse. I then left my card assuring the patient and patient's spouse that they should feel free to contact me with any questions. Keyona LEE, RN Stroke Nurse Navigator [facility] [place] [address] Office [email or web address] 08-06-2025 Plan of care note Problem: OT - Balance Goal: Balance - Standing - Patient will perform 10 minutes of functional task in standing with supervisionassistance and good balance to promote safety and improved balance required for self-care activities. Outcome: Progressing Problem: OT - Transfers Goal: Transfers Sit/Stand - Patient will demonstrate good safety awareness during sit to/from stand functional transfer with minimal assistance and least restrictive device to demonstrate safe functional transfers. Outcome: Met Updated to: Transfers Sit/Stand - Patient will demonstrate good safety awareness during sit to/from stand functional transfer with supervision assistance and least restrictive device to demonstrate safe functional transfers. Problem: OT - Balance Goal: Balance - Standing - Patient will perform 10 minutes of functional task in standing with minimal assistance and good balance to promote safety and improved balance required for self-care activities. Outcome: Met Updated to: Balance - Standing - Patient will perform 10 minutes of functional task in standing with supervisionassistance and good balance to promote safety and improved balance required for self-care activities. [facility] 08-06-2025 Plan of care note Problem: PT - General Goals Goal: Supine <-> Sit Transfers - Patient will perform supine to/from sit transfers with modified independence and without use of hospital bed features in order to improve functional mobility and safety. Outcome: Progressing Goal: Sit <-> Stand Transfers - Patient will perform sit to/from stand transfers with standby assistance and least restrictive device in order to improve functional mobility and safety. Outcome: Progressing Goal: Stand/Squat Pivot Transfers - Patient will perform stand pivot transfer to/from bed/chair/commode with standby assistance and least restrictive device in order to improve functional mobility and safety. Outcome: Progressing Goal: Ambulation - Patient will ambulate 75 feet with standby assistance and least restrictive device to improve ability to safely navigate home and community. Outcome: Progressing T [facility] 08-05-2025 Plan of care note Problem: Adult Inpatient Plan of Care Goal: Plan of Care Review Outcome: Progressing Goal: Patient-Specific Goal (Individualized) Outcome: Progressing Goal: Absence of Hospital-Acquired Illness or Injury Outcome: Progressing Goal: Optimal Comfort and Wellbeing Outcome: Progressing Goal: Readiness for Transition of Care Outcome: Progressing Problem: Stroke, Intracerebral Hemorrhage Goal: Optimal Coping Outcome: Progressing Goal: Effective Bowel Elimination Outcome: Progressing Goal: Optimal Cerebral Tissue Perfusion Outcome: Progressing Goal: Optimal Cognitive Function Outcome: Progressing Goal: Effective Communication Skills Outcome: Progressing Goal: Optimal Functional Ability Outcome: Progressing Goal: Optimal Nutrition Intake Outcome: Progressing Goal: Optimal Pain Control and Function Outcome: Progressing Goal: Effective Oxygenation and Ventilation Outcome: Progressing Goal: Improved Sensorimotor Function Outcome: Progressing Goal: Safe and Effective Swallow Outcome: Progressing Goal: Effective Urinary Elimination Outcome: Progressing Problem: OT - ADLs Goal: Lower Body Dressing - Patient will complete lower body dressing tasks with contact guard assistance using adaptive equipment/compensatory strategies as needed for improved ability to complete self-care activities. Outcome: Progressing Goal: Grooming - Patient will complete grooming in standing with minimal assistance for improved ability to safely complete ADLs. Outcome: Progressing Goal: Bathing - Patient will perform full body bathing routine with minimal assistance while seated for improved ability to complete self-care activities Outcome: Progressing Problem: OT - Transfers Goal: Transfers Sit/Stand - Patient will demonstrate good safety awareness during sit to/from stand functional transfer with minimal assistance and least restrictive device to demonstrate safe functional transfers. Outcome: Progressing Problem: OT - Balance Goal: Balance - Standing - Patient will perform 10 minutes of functional task in standing with minimal assistance and good balance to promote safety and improved balance required for self-care activities. Outcome: Progressing Problem: OT - Vision Goal: Visual Scanning ADL - Patient will employ use of visual compensatory strategies with no greater than min cues in 5/5 trials to increase participation and safety in ADLs. Outcome: Progressing Problem: PT - General Goals Goal: Supine <-> Sit Transfers - Patient will perform supine to/from sit transfers with modified independence and without use of hospital bed features in order to improve functional mobility and safety. Outcome: Progressing Goal: Sit <-> Stand Transfers - Patient will perform sit to/from stand transfers with standby assistance and least restrictive device in order to improve functional mobility and safety. Outcome: Progressing Goal: Stand/Squat Pivot Transfers - Patient will perform stand pivot transfer to/from bed/chair/commode with standby assistance and least restrictive device in order to improve functional mobility and safety. Outcome: Progressing Goal: Ambulation - Patient will ambulate 75 feet with standby assistance and least restrictive device to improve ability to safely navigate home and community. Outcome: Progressing Problem: BOAT RIGGER - Cognition Goal: Metacognition - Patient will identify at least 3 deficits related to medical condition and how deficits will impact ability to return home with fading cues to improve safety and independence Outcome: Progressing Goal: Ongoing Assessment - Patient will participate in ongoing dynamic assessment of reading, writing, and cognitive-linguistic skills across 1 session to better assess deficits and most appropriately guide BOAT RIGGER plan of care Outcome: Progressing Problem: BOAT RIGGER - Motor Speech Goal: Intelligibility Strategies - Patient will teach back and utilize intelligibility strategies in structure and in conversation to improve intelligibility to at least 80%, with minimal cues Outcome: Progressing Problem: Dysphagia Goal: Challenge - Pt will accept trials of thin liquids (independently and with liquid wash of regular), given min cues for use of strategies to improve bolus timing of swallow initiation with no signs of aspiration to determine readiness for advancement Outcome: Progressing Goal: Patient will complete 2 sets of 5 Jaw Opening Exercise (KEMAL) to improve the suprahyoid muscle strength and hyolaryngeal elevation with min cues over 1-2 weeks. Outcome: Progressing Goal: Shaker/CTAR - Patient will complete 30 reps x 3 sets, 60 sec rest break between sets followed by 60 second hold x3 sets, 60 sec rest break between sets of CTAR or Shaker exercise for improved hyoid excursion given minimal cues Outcome: Progressing [facility] 08-05-2025 Plan of care note Problem: Dysphagia Goal: FEES - Patient will participate in Fiberoptic Endoscopic Evaluation of Swallowing (FEES) study to objectively assess pharyngeal swallow function to most appropriately guide BOAT RIGGER plan of care Outcome: Met Problem: Dysphagia Goal: Challenge - Pt will accept trials of thin liquids (independently and with liquid wash of regular), given min cues for use of strategies to improve bolus timing of swallow initiation with no signs of aspiration to determine readiness for advancement Outcome: Ongoing Goal: Patient will complete 2 sets of 5 Jaw Opening Exercise (KEMAL) to improve the suprahyoid muscle strength and hyolaryngeal elevation with min cues over 1-2 weeks. Outcome: Ongoing Goal: Shaker/CTAR - Patient will complete 30 reps x 3 sets, 60 sec rest break between sets followed by 60 second hold x3 sets, 60 sec rest break between sets of CTAR or Shaker exercise for improved hyoid excursion given minimal cues Outcome: Ongoing [facility] 08-05-2025 Procedure note Associated Ord er(s): FLEXIBLE ENDOSCOPIC EVALUATION OF SWALLOWING Acute Care Speech-Language Pathology Flexible Endoscopic Evaluation of Swallowing (FEES) Clinical Recommendations Method of Nutrition: PO Intake: oral nutrition and hydration Medication Administration: Crushed, Whole in puree Recommended Diet Grade: dysphagia- soft and bite sized (IDDSI 6) Recommended Liquid Consistency: liquid- thin (IDDSI 0) Mealtime Strategies: Assist with tray set up Type of Cues/Supervision: 1:1 supervision, 1:1 assistance Oral Swallow Strategies: Bolus volume change (smaller quantity) Pharyngeal Swallow Strategies: Multiple swallows, Volitional cough/throat clear *Patient will cough in response to airway events which per FEES is protective and appears to eject material from the airway Therapy frequency recommendation(s) in acute: 3 times a week Inpatient Referrals: Flexible Endoscopic Evaluation of Swallowing (FEES) Discharge recommendations Location: Inpatient Rehab Facility Barriers to discharge home: Need for 1:1 assist to ensure safety with all PO intake, 1:1 assist needed for IADL's including medication management and finances Supporting factors for discharge setting: Impaired swallow function limiting nutritional status and safety with oral intake, Impaired cognitive skills limiting independence Pain General Pain Documentation (Adult, OB, Peds) Presence of Pain: denies pain/discomfort Presence of Pain Score (Auto-calculated): 0 Precautions Patient Safety Communication Prior to Visit: Nursing, Physician Lines/Tubes/Drains (Rehab Status): Telemetry, Arterial line Systems Review Onset of Illness/Injury or Surgery Date (BOAT RIGGER): 08/03/25 Communication Status: Verbal, Dysarthric Respiratory Status O2 Device: room air O2 Sat (%): 92 % Resp Rate: (!) 26 Acute BOAT RIGGER Outcomes Tracking Communicate basic wants and needs?: yes Demo insight/appreciation of deficits?: no Complete basic problem solving?: yes History of Present Illness: Esvin Guerrier Jr. is a 64 y.o. male with a past history of L basal ganglia ICH (2019), HTN, throat cancer, partially deaf, and hepatitis c who presented to OSH with c/o dizziness, N/V, evaluated for stroke alert with LKW 2400 08/02/25, reportedly non-adherence to anti-HTN medications. BP on presentation 220/116, CT H revealed a pontine hemorrhage and small R basal ganglia hyperdensity. 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 INTERVAL HISTORY SINCE ADMISSION 08/03/2025: admitted to [facility], BP responded well to cardene from ED, BP 98/77 (84) on arrival to NCCU, weaning cardene to SBP <140. Medical History: Past Medical History[1] BOAT RIGGER History: FEES 2019: Pt p/w mild oropharyngeal dysphagia c/breduced bolus efficiency and impaired airway protection. Valleculae residue with puree suspected to be d/t reduced BoT retraction and reduced pharyngeal contraction. Postcricoid residue also overflowed into laryngeal vestibule after the swallow. Spontaneous f/u swallows cleared residue and penetration. Liquid wash was also effective to clear pharyngeal residue. Thin liquids observed in laryngeal vestibule after the swallow likely d/t reduced laryngeal elevation/excursion. Pt was sensate to penetration and spontaneous coughs and f/u swallows cleared penetration. No aspiration observed during this study. Recommend beginning a soft/bite sized diet with thin liquids.Will f/u x1 for ongoing assessment of diet tolerance but no anticipated dysphagia needs upon discharge. Will f/u to complete cognitive-linguistic eval. D/W pt, MD, and RN. Baseline method of nutrition: Oral nutrition/hydration Regular (IDDSI 7) Liquid - thin (IDDSI 0) Current method of nutrition: No current method of nutrition Clinical Reasons for Exam Patient Reported Dysphagia Symptoms: Yes Reason(s) for Exam: Acute dysphagia Subjective: Patient alert, resting in bed. Daughter present throughout Oral Mechanism Exam: Oral Mucosa Healthy appearing mucosa Oral Secretions Normal Dentition Edentulous Face: Sensory Function Equal sensation on forehead, cheeks and jaw Face: Motor Function Symmetrical at rest Mandible Functional bilateral symmetry, range of motion and perceived strength of masseter and temporal muscles Lips Symmetrical at rest and during movement Tongue Symmetrical, functional range of motion in all planes Soft Palate Uvula is midline Gag Response Did not test Neck and Shoulders Incomplete range of motion - left Cranial Nerve Impairments XI Spinal Accessory Nerve GRBAS: A perceptual rating scale for voice parameters, Rating scale of 0 to 3 (0 = no impairment, 1 = minimal to mild impairment, 2 = moderate impairment, 3 = severe impairment) Grade of dysphonia (G): 1 Roughness (R): 1 Breathiness (B): 0 Asthenia (A): 0 Strain (S): 0 FEES Procedure Details Procedure Performed & Read by: Sierra Ospina, BOAT RIGGER Scope Serial #: [id number] Feeder Name: Regla Patient was positioned : Hospital Bed, High Thrasher's (60-90 degrees). The flexible endoscope was passed through the nasal passage to the level of oropharynx. Food and liquids were tinted with food coloring for easier observation. The scope was passed through the right nares without difficulty. Clinical Anatomical Assessment Nasopharynx: Normal appearing structures and mucosa Oropharynx: Erythema Hypopharynx: Erythema Epiglottis: Normal appearance and contour Arytenoids: Normal appearance True Vocal Cords - Left: Normal appearance True Vocal Cords - Right: Normal appearance Ventricular Folds: Erythematous Subglottis: Achieved adequate view of anterior tracheal wall Secretion appearance: Clear Anatomic Impressions: Erythematous tissue throughout. Noted hypomobile left arytenoid [place] Secretion Scale (NZSS) The [place] Secretion Scale (NZSS) has been developed for comprehensive assessment of accumulated secretions during endoscopy. The [place] Secretion Scale has potential to predict pneumonia in patients irrespective of their penetration/aspiration scores. The scale rates secretion severity under the subcategories location, amount and response. Patient's scores observed during today's assessment are: Location: Nil significant pooled secretions in pyriforms fossae or laryngeal vestibule (0-20%) Amount in pyriform fossae: Nil significant pooled secretions in pyriforms fossae (0-20%) Response: Secretions in pyriform fossae or laryngeal vestibule effectively cleared Total (maximum 7): 0 Ilya Amato, Taylor Amato, Ezra Clemens, Brenda Arceo, Everardo S. Predictive Value of the [place] Secretion Scale (NZSS) for Pneumonia. Dysphagia. 2018 Dec;33(1):115-122. doi: 10.1007/[id number]-x. Epub 2016Jul 05. PMID: [id number]. Davis Secretion Scale (JULIETTE) The Davis Secretion Scale (JULIETTE) has been developed for a comprehensive assessment of accumulated secretions during endoscopy. Research has shown strong correlations between the Davis Secretion Scale and the Penetration-Aspiration Scale: the more severe the secretion, the higher the risk toward development of deeper penetration or aspiration. Patient's score observed during today's assessment is: 0: No visible secretions anywhere in hypopharynx Toribio CW, Jasvir CT, Bill CC, Jesse CJ. Davis secretion scale and fiberoptic endoscopic evaluation of swallowing in predicting aspiration in dysphagic patients. Eur Arch Otorhinolaryngol. 2017 [place];274(6):8716-6254. doi: 10.1007/[id number]-r. Epub 2016Jan 22. PMID: [id number]. Physiologic Assessment Velopharyngeal Closure: Adequate elevation and closure Base of Tongue Retraction: Symmetrical, adequate movement Pharyngeal Wall Medialization: Symmetrical, adequate movement Arytenoid Approximation: Limited range of motion - left True Vocal Cords (Left): Full range of motion and mobility True Vocal Cords (Right): Full range of motion and mobility Ventricular Folds: Normal mobility Secretion appearance: Clear Consistency Tested Delivered via: Amount: Ice Spoon x3 Thin Spoon, Straw spoon x2, straw x3 Examination of Swallowing Tongue Control During Bolus Hold: Posterior escape of bolus Bolus Preparation/Mastication: Slow prolonged chewing/mashing with complete recollection Initiation of Pharyngeal Swallow: Bolus head in pyriforms Pharyngeal Constriction: Appeared functional Nasopharyngeal entry: None Laryngeal Elevation: Present and appeared incomplete Epiglottic Retroflexion: Present but appeared reduced or [facility] White-Out Duration (Visual Judgment): Incomplete Amount of Residue: Trace lining Location of Residue: Pyriform sinuses, Post cricoid, Vallecula Backflow from esophagus: None [place] Pharyngeal Residue Severity Rating Scale: Consistency: Ice, Thin, Mildly Thick, Moderately Thick, Pureed, Regular/Easy to Chew Ice - Vallecula Residue: None: 0% no residue Ice - Pyriform Sinus Residue: Trace: 1-5% trace coating of mucosa Thin - Vallecula Residue: Trace: 1-5% trace coating of the mucosa Thin - Pyriform Sinus Residue: Severe: >50% filled to aryepiglottic fold Mildly Thick - Vallecula Residue: Trace: 1-5% trace coating of the mucosa Mildly Thick - Pyriform Sinus Residue: Severe: >50% filled to aryepiglottic fold Moderately Thick - Vallecula Residue: Trace: 1-5% trace coating of the mucosa Moderately Thick - Pyriform Sinus Residue: Severe: >50% filled to aryepiglottic fold Pureed - Vallecula Residue: Trace: 1-5% trace coating of the mucosa Pureed - Pyriform Sinus Residue: Trace: 1-5% trace coating of mucosa Regular Solid - Vallecula Residue: Trace: 1-5% trace coating of the mucosa Regular Solid - Pyriform Sinus Residue: Trace: 1-5% trace coating of mucosa (Robinson Juarez, Suzette Cunha, & Remy Rush (2015). The lacho pharyngeal residue severity rating scale: an anatomically defined and image-based tool. Dysphagia, 30, [phone].) Penetration/Aspiration Scale: Ice: 1 - Material does not enter the airway, 3 - Material enters the airway, remains above the vocal folds, and is not ejected from the airway Thin: 1 - Material does not enter the airway, 4 - Material enters the airway, contacts the vocal folds, and is ejected from the airway, 6 - Material enters the airway, passes below the vocal folds, and is ejected into the larynx or out of the airway Liquid- mildly thick (IDDSI 2)/nectar: 4 - Material enters the airway, contacts the vocal folds, and is ejected from the airway, 6 - Material enters the airway, passes below the vocal folds, and is ejected into the larynx or out of the airway, 8 - Material enters the airway, passes below the vocal folds, and no effort is made to eject Dysphagia- pureed (IDDSI 4) via tsp: 1 - Material does not enter the airway Regular Solid: 1 - Material does not enter the airway Still Pictures/Video: See Flexible Endoscopic Evaluation Of Swallowing under Procedures tab in IHIS for all photos and videos recorded. Swallowing Outcomes: FOIS 6 Assessment: Esvin Guerrier Jr. presents with mild-moderate oropharyngeal dysphagia in the setting of admission for acute pontine ICH, history of throat cancer, history of partial deafness, and history of L BG ICH (2019). Oral stage not directly observed given nature of view with FEES, however, slow but complete mastication. Pharyngeal stage characterized by deficits in swallow initiation and decreased epiglottic retroversion, resulting in penetration of mildly thick and thin liquids before the swallow. Of note, patient with trace silent aspiration (appeared to clear) with mildly thick liquids during the swallowing x1. Patient also with efficiency deficits likely due to reduced UES opening resulting in residue building up in the pyriform space that would occasionally spill into airway. This was most notable during trials of regular solids. Patient typically sensate to residue and would swallow in response. Occasionally would cough suggesting sensation to aspiration with suspected clearance (however, unable to fully confirm based on unable to visualize the posterior tracheal wall). In weighing these deficits against the Dynamic Imaging Grade of Swallowing Toxicity Scale-FEES (DIGEST-FEES) to determine overall risk, patient presents with a 1 inefficient (E1) and moderately unsafe (S2). Recommend to initiate thin liquids and soft/bite sized solids with strategies of small bites and sips, multiple swallows, cough as needed post swallow. Medications whole or crushed in puree. Low threshold for return to NPO should patient display any respiratory status changes arise. Speech will continue to follow for compensatory strategy training and diet advancement as tolerated. If another study is needed, MBS preferred given location of aspiration. Rehab potential: good, to achieve stated therapy goals Plan for next session: 08/05- good, review swallow strategies and results of FEES Acute BOAT RIGGER Goals Plan of Care by Sierra Ospina BOAT RIGGER at 08/05/2025 9:01 AM Version 1 of 1 Problem: Dysphagia Goal: FEES - Patient will participate in Fiberoptic Endoscopic Evaluation of Swallowing (FEES) study to objectively assess pharyngeal swallow function to most appropriately guide BOAT RIGGER plan of care Outcome: Met Problem: Dysphagia Goal: Challenge - Pt will accept trials of thin liquids (independently and with liquid wash of regular), given min cues for use of strategies to improve bolus timing of swallow initiation with no signs of aspiration to determine readiness for advancement Outcome: Ongoing Goal: Patient will complete 2 sets of 5 Jaw Opening Exercise (KEMAL) to improve the suprahyoid muscle strength and hyolaryngeal elevation with min cues over 1-2 weeks. Outcome: Ongoing Goal: Shaker/CTAR - Patient will complete 30 reps x 3 sets, 60 sec rest break between sets followed by 60 second hold x3 sets, 60 sec rest break between sets of CTAR or Shaker exercise for improved hyoid excursion given minimal cues Outcome: Ongoing Patient Education/Instruction Learners: Patient, Family Education provided: Dysphagia risk factors, Dysphagia recommendations/impressions Teaching method: Verbal Education/Instruction Learner response: States/Identifies/Teaches back Learning preferences: Auditory Learning considerations: Cognition Patient Instruction/Education comments: Provided preliminary education regarding FEES Speech Language Pathologist: ROSS Henriquez Time In: 900 Time Out: 930 Total Visit Time: 30 minutes Total Treatment Time (skilled, billable minutes): 30 minutes Non-billable assistance during session: n/a Assisted by during session: Regla PPE used during patient interaction: gloves Patient location/status at end of session: bed with head of bed elevated Patient alarms at end of session: none altered Upon discontinuation of Acute Care Speech Therapy Services or patient discharge from the hospital this note represents the current Speech Therapy Discharge Summary [1] Past Medical History: Diagnosis Date Anxiety Back pain Essential hypertension, benign Hep C w/o coma, chronic ICH (intracerebral hemorrhage) 09/2020 aphasia, R sided weakness, numbness; CT/MR L basal ganglia, white matter ICH, tiny DWI lesion bilateral frontal white matter, microhemorrhage R basal ganglia, multiple in valentin; CTA no vascular malformation, severe tenosis proximal R ICA, moderate stenosis distally, moderate stenosis origin L vertebral, severe stenosis proximal R vertebral with focal occlusion Kidney stone Throat cancer [facility] 08-05-2025 Procedure note Associated Ord er(s): FLEXIBLE ENDOSCOPIC EVALUATION OF SWALLOWING Acute Care Speech-Language Pathology Flexible Endoscopic Evaluation of Swallowing (FEES) Clinical Recommendations Method of Nutrition: PO Intake: oral nutrition and hydration Medication Administration: Crushed, Whole in puree Recommended Diet Grade: dysphagia- soft and bite sized (IDDSI 6) Recommended Liquid Consistency: liquid- thin (IDDSI 0) Mealtime Strategies: Assist with tray set up Type of Cues/Supervision: 1:1 supervision, 1:1 assistance Oral Swallow Strategies: Bolus volume change (smaller quantity) Pharyngeal Swallow Strategies: Multiple swallows, Volitional cough/throat clear *Patient will cough in response to airway events which per FEES is protective and appears to eject material from the airway Therapy frequency recommendation(s) in acute: 3 times a week Inpatient Referrals: Flexible Endoscopic Evaluation of Swallowing (FEES) Discharge recommendations Location: Inpatient Rehab Facility Barriers to discharge home: Need for 1:1 assist to ensure safety with all PO intake, 1:1 assist needed for IADL's including medication management and finances Supporting factors for discharge setting: Impaired swallow function limiting nutritional status and safety with oral intake, Impaired cognitive skills limiting independence Pain General Pain Documentation (Adult, OB, Peds) Presence of Pain: denies pain/discomfort Presence of Pain Score (Auto-calculated): 0 Precautions Patient Safety Communication Prior to Visit: Nursing, Physician Lines/Tubes/Drains (Rehab Status): Telemetry, Arterial line Systems Review Onset of Illness/Injury or Surgery Date (BOAT RIGGER): 08/03/25 Communication Status: Verbal, Dysarthric Respiratory Status O2 Device: room air O2 Sat (%): 92 % Resp Rate: (!) 26 Acute BOAT RIGGER Outcomes Tracking Communicate basic wants and needs?: yes Demo insight/appreciation of deficits?: no Complete basic problem solving?: yes History of Present Illness: Esvin Guerrier Jr. is a 64 y.o. male with a past history of L basal ganglia ICH (2019), HTN, throat cancer, partially deaf, and hepatitis c who presented to OSH with c/o dizziness, N/V, evaluated for stroke alert with LKW 2400 08/02/25, reportedly non-adherence to anti-HTN medications. BP on presentation 220/116, CT H revealed a pontine hemorrhage and small R basal ganglia hyperdensity. 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 INTERVAL HISTORY SINCE ADMISSION 08/03/2025: admitted to [facility], BP responded well to cardene from ED, BP 98/77 (84) on arrival to [facility], weaning cardene to SBP <140. Medical History: Past Medical History[1] BOAT RIGGER History: FEES 2019: Pt p/w mild oropharyngeal dysphagia c/breduced bolus efficiency and impaired airway protection. Valleculae residue with puree suspected to be d/t reduced BoT retraction and reduced pharyngeal contraction. Postcricoid residue also overflowed into laryngeal vestibule after the swallow. Spontaneous f/u swallows cleared residue and penetration. Liquid wash was also effective to clear pharyngeal residue. Thin liquids observed in laryngeal vestibule after the swallow likely d/t reduced laryngeal elevation/excursion. Pt was sensate to penetration and spontaneous coughs and f/u swallows cleared penetration. No aspiration observed during this study. Recommend beginning a soft/bite sized diet with thin liquids.Will f/u x1 for ongoing assessment of diet tolerance but no anticipated dysphagia needs upon discharge. Will f/u to complete cognitive-linguistic eval. D/W pt, MD, and RN. Baseline method of nutrition: Oral nutrition/hydration Regular (IDDSI 7) Liquid - thin (IDDSI 0) Current method of nutrition: No current method of nutrition Clinical Reasons for Exam Patient Reported Dysphagia Symptoms: Yes Reason(s) for Exam: Acute dysphagia Subjective: Patient alert, resting in bed. Daughter present throughout Oral Mechanism Exam: Oral Mucosa Healthy appearing mucosa Oral Secretions Normal Dentition Edentulous Face: Sensory Function Equal sensation on forehead, cheeks and jaw Face: Motor Function Symmetrical at rest Mandible Functional bilateral symmetry, range of motion and perceived strength of masseter and temporal muscles Lips Symmetrical at rest and during movement Tongue Symmetrical, functional range of motion in all planes Soft Palate Uvula is midline Gag Response Did not test Neck and Shoulders Incomplete range of motion - left Cranial Nerve Impairments XI Spinal Accessory Nerve GRBAS: A perceptual rating scale for voice parameters, Rating scale of 0 to 3 (0 = no impairment, 1 = minimal to mild impairment, 2 = moderate impairment, 3 = severe impairment) Grade of dysphonia (G): 1 Roughness (R): 1 Breathiness (B): 0 Asthenia (A): 0 Strain (S): 0 FEES Procedure Details Procedure Performed & Read by: ROSS Henriquez Scope Serial #: [id number] Feeder Name: Regla Patient was positioned : Hospital Bed, High Thrasher's (60-90 degrees). The flexible endoscope was passed through the nasal passage to the level of oropharynx. Food and liquids were tinted with food coloring for easier observation. The scope was passed through the right nares without difficulty. Clinical Anatomical Assessment Nasopharynx: Normal appearing structures and mucosa Oropharynx: Erythema Hypopharynx: Erythema Epiglottis: Normal appearance and contour Arytenoids: Normal appearance True Vocal Cords - Left: Normal appearance True Vocal Cords - Right: Normal appearance Ventricular Folds: Erythematous Subglottis: Achieved adequate view of anterior tracheal wall Secretion appearance: Clear Anatomic Impressions: Erythematous tissue throughout. Noted hypomobile left arytenoid [place] Secretion Scale (NZSS) The [place] Secretion Scale (NZSS) has been developed for comprehensive assessment of accumulated secretions during endoscopy. The [place] Secretion Scale has potential to predict pneumonia in patients irrespective of their penetration/aspiration scores. The scale rates secretion severity under the subcategories location, amount and response. Patient's scores observed during today's assessment are: Location: Nil significant pooled secretions in pyriforms fossae or laryngeal vestibule (0-20%) Amount in pyriform fossae: Nil significant pooled secretions in pyriforms fossae (0-20%) Response: Secretions in pyriform fossae or laryngeal vestibule effectively cleared Total (maximum 7): 0 Ilya Amato, Taylor Amato, Ezra Clemens, Brenda Arceo, Everardo S. Predictive Value of the [place] Secretion Scale (NZSS) for Pneumonia. Dysphagia. 2018 Dec;33(1):115-122. doi: 10.1007/[id number]-e. Epub 2016Jul 05. PMID: [id number]. Davis Secretion Scale (JULIETTE) The Davis Secretion Scale (JULIETTE) has been developed for a comprehensive assessment of accumulated secretions during endoscopy. Research has shown strong correlations between the Davis Secretion Scale and the Penetration-Aspiration Scale: the more severe the secretion, the higher the risk toward development of deeper penetration or aspiration. Patient's score observed during today's assessment is: 0: No visible secretions anywhere in hypopharynx Toribio CW, Jasvir CT, Khan CC, Jesse CJ. Davis secretion scale and fiberoptic endoscopic evaluation of swallowing in predicting aspiration in dysphagic patients. Eur Arch Otorhinolaryngol. 2017 [place];274(6):8316-0719. doi: 10.1007/[id number]. Epub 2016Jan 22. PMID: 98969722. Physiologic Assessment Velopharyngeal Closure: Adequate elevation and closure Base of Tongue Retraction: Symmetrical, adequate movement Pharyngeal Wall Medialization: Symmetrical, adequate movement Arytenoid Approximation: Limited range of motion - left True Vocal Cords (Left): Full range of motion and mobility True Vocal Cords (Right): Full range of motion and mobility Ventricular Folds: Normal mobility Secretion appearance: Clear Consistency Tested Delivered via: Amount: Ice Spoon x3 Thin Spoon, Straw spoon x2, straw x3 Examination of Swallowing Tongue Control During Bolus Hold: Posterior escape of bolus Bolus Preparation/Mastication: Slow prolonged chewing/mashing with complete recollection Initiation of Pharyngeal Swallow: Bolus head in pyriforms Pharyngeal Constriction: Appeared functional Nasopharyngeal entry: None Laryngeal Elevation: Present and appeared incomplete Epiglottic Retroflexion: Present but appeared reduced or [facility] White-Out Duration (Visual Judgment): Incomplete Amount of Residue: Trace lining Location of Residue: Pyriform sinuses, Post cricoid, Vallecula Backflow from esophagus: None [place] Pharyngeal Residue Severity Rating Scale: Consistency: Ice, Thin, Mildly Thick, Moderately Thick, Pureed, Regular/Easy to Chew Ice - Vallecula Residue: None: 0% no residue Ice - Pyriform Sinus Residue: Trace: 1-5% trace coating of mucosa Thin - Vallecula Residue: Trace: 1-5% trace coating of the mucosa Thin - Pyriform Sinus Residue: Severe: >50% filled to aryepiglottic fold Mildly Thick - Vallecula Residue: Trace: 1-5% trace coating of the mucosa Mildly Thick - Pyriform Sinus Residue: Severe: >50% filled to aryepiglottic fold Moderately Thick - Vallecula Residue: Trace: 1-5% trace coating of the mucosa Moderately Thick - Pyriform Sinus Residue: Severe: >50% filled to aryepiglottic fold Pureed - Vallecula Residue: Trace: 1-5% trace coating of the mucosa Pureed - Pyriform Sinus Residue: Trace: 1-5% trace coating of mucosa Regular Solid - Vallecula Residue: Trace: 1-5% trace coating of the mucosa Regular Solid - Pyriform Sinus Residue: Trace: 1-5% trace coating of mucosa (Robinson Juarez, Suzette Cunha, & Remy Rush (2015). The [place] pharyngeal residue severity rating scale: an anatomically defined and image-based tool. Dysphagia, 30, [id number].) Penetration/Aspiration Scale: Ice: 1 - Material does not enter the airway, 3 - Material enters the airway, remains above the vocal folds, and is not ejected from the airway Thin: 1 - Material does not enter the airway, 4 - Material enters the airway, contacts the vocal folds, and is ejected from the airway, 6 - Material enters the airway, passes below the vocal folds, and is ejected into the larynx or out of the airway Liquid- mildly thick (IDDSI 2)/nectar: 4 - Material enters the airway, contacts the vocal folds, and is ejected from the airway, 6 - Material enters the airway, passes below the vocal folds, and is ejected into the larynx or out of the airway, 8 - Material enters the airway, passes below the vocal folds, and no effort is made to eject Dysphagia- pureed (IDDSI 4) via tsp: 1 - Material does not enter the airway Regular Solid: 1 - Material does not enter the airway Still Pictures/Video: See Flexible Endoscopic Evaluation Of Swallowing under Procedures tab in IHIS for all photos and videos recorded. Swallowing Outcomes: FOIS 6 Assessment: Esvin Guerrier Jr. presents with mild-moderate oropharyngeal dysphagia in the setting of admission for acute pontine ICH, history of throat cancer, history of partial deafness, and history of L BG ICH (2020). Oral stage not directly observed given nature of view with FEES, however, slow but complete mastication. Pharyngeal stage characterized by deficits in swallow initiation and decreased epiglottic retroversion, resulting in penetration of mildly thick and thin liquids before the swallow. Of note, patient with trace silent aspiration (appeared to clear) with mildly thick liquids during the swallowing x1. Patient also with efficiency deficits likely due to reduced UES opening resulting in residue building up in the pyriform space that would occasionally spill into airway. This was most notable during trials of regular solids. Patient typically sensate to residue and would swallow in response. Occasionally would cough suggesting sensation to aspiration with suspected clearance (however, unable to fully confirm based on unable to visualize the posterior tracheal wall). In weighing these deficits against the Dynamic Imaging Grade of Swallowing Toxicity Scale-FEES (DIGEST-FEES) to determine overall risk, patient presents with a 1 inefficient (E1) and moderately unsafe (S2). Recommend to initiate thin liquids and soft/bite sized solids with strategies of small bites and sips, multiple swallows, cough as needed post swallow. Medications whole or crushed in puree. Low threshold for return to NPO should patient display any respiratory status changes arise. Speech will continue to follow for compensatory strategy training and diet advancement as tolerated. If another study is needed, MBS preferred given location of aspiration. Rehab potential: good, to achieve stated therapy goals Plan for next session: 08/05- good, review swallow strategies and results of FEES Acute BOAT RIGGER Goals Plan of Care by ROSS Henriquez at 08/05/2025 9:01 AM Version 1 of 1 Problem: Dysphagia Goal: FEES - Patient will participate in Fiberoptic Endoscopic Evaluation of Swallowing (FEES) study to objectively assess pharyngeal swallow function to most appropriately guide BOAT RIGGER plan of care Outcome: Met Problem: Dysphagia Goal: Challenge - Pt will accept trials of thin liquids (independently and with liquid wash of regular), given min cues for use of strategies to improve bolus timing of swallow initiation with no signs of aspiration to determine readiness for advancement Outcome: Ongoing Goal: Patient will complete 2 sets of 5 Jaw Opening Exercise (KEMAL) to improve the suprahyoid muscle strength and hyolaryngeal elevation with min cues over 1-2 weeks. Outcome: Ongoing Goal: Shaker/CTAR - Patient will complete 30 reps x 3 sets, 60 sec rest break between sets followed by 60 second hold x3 sets, 60 sec rest break between sets of CTAR or Shaker exercise for improved hyoid excursion given minimal cues Outcome: Ongoing Patient Education/Instruction Learners: Patient, Family Education provided: Dysphagia risk factors, Dysphagia recommendations/impressions Teaching method: Verbal Education/Instruction Learner response: States/Identifies/Teaches back Learning preferences: Auditory Learning considerations: Cognition Patient Instruction/Education comments: Provided preliminary education regarding FEES Speech Language Pathologist: ROSS Henriquez Time In: 900 Time Out: 930 Total Visit Time: 30 minutes Total Treatment Time (skilled, billable minutes): 30 minutes Non-billable assistance during session: n/a Assisted by during session: Regla PPE used during patient interaction: gloves Patient location/status at end of session: bed with head of bed elevated Patient alarms at end of session: none altered Upon discontinuation of Acute Care Speech Therapy Services or patient discharge from the hospital this note represents the current Speech Therapy Discharge Summary [1] Past Medical History: Diagnosis Date Anxiety Back pain Essential hypertension, benign Hep C w/o coma, chronic ICH (intracerebral hemorrhage) 09/2020 aphasia, R sided weakness, numbness; CT/MR L basal ganglia, white matter ICH, tiny DWI lesion bilateral frontal white matter, microhemorrhage R basal ganglia, multiple in valentin; CTA no vascular malformation, severe tenosis proximal R ICA, moderate stenosis distally, moderate stenosis origin L vertebral, severe stenosis proximal R vertebral with focal occlusion Kidney stone Throat cancer Associated Order(s): *ARTERIAL LINE Post-Procedure Diagnose(s): Nontraumatic intracerebral hemorrhage, unspecified cerebral location, unspecified laterality *ARTERIAL LINE Procedure Date:: 08/03/2025 Start Time:: 14:50 EDT Performed by: CYNTHIA Marcelino Authorized by: CYNTHIA Marcelino Staff: Name of Copyright Clerk: CYNTHIA Colon Name of Copyright Clerk: Twan Cazares RN Consent Written consent obtained Consent given by: patient Risks and benefits were discussed. Risks discussed: arterial occlusion, bleeding, limb ischemia and limb loss Alternatives discussed: no treatment and delayed treatment Indications Indications: hemodynamic monitoring [place] Protocol The patient states understanding of procedure being performed. The patient's understanding of the procedure matches consent given Procedure consent matches procedure scheduled. Relevant documents present and verified: Yes Test results available and properly labeled: Yes Site marked: Yes Imaging studies available: Yes Required blood products, implants, devices, and special equipment available Patient identity confirmed: verbally with patient, arm band and hospital-assigned identification number Immediately prior to the procedure a timeout was called. Pre Procedure Details Hand hygiene used Landmarks identified Antiseptic used: skin prepped with ChloraPrep Skin prep agent completely dried prior to procedure Maximum sterile barriers were used: cap, mask, sterile gown, sterile gloves, and large sterile sheet Anesthesia Local anesthesia used: yes Local: local infiltration Local Anesthetic: 1% Lidocaine Anesthetic total: 2 mL Sedation Patient not sedated Procedure Details Location: Right radial artery Site selection rationale: strong pulse on doppler Patient Position: Lying in bed Placement Technique: Ultrasound guided Number of attempts: 2 Transducer: waveform confirmed Procedure stop date: 08/03/2025 Procedure stop time: 15:40 EDT Procedure Vital Signs Monitored Post Procedure Successful Placement?: Yes Ultrasound guidance on successful attempt: Yes Sterile ultrasound: Sterile ultrasound gel and probe cover used Imaging Saved?: No Preliminary ultrasound demonstrated a patent vascular access. Guidewire removal confirmed: Yes Line secured with suture. Dressing applied: Sterile Post Procedure Diagnosis: ICH Estimated Blood Loss: < 10 mL Disposition of Specimen: No specimen was removed Complications: Local hematoma Patient tolerance: Patient tolerated the procedure well with no immediate complications Post-procedure circulation, movement, sensation: Unchanged Additional Documentation Known chronic thrombocytopenia, 1 pool plts infusing at time of procedure with repeat plts following infusion. I performed the procedure myself Cosigned by CYNTHIA Colon at 08/03/2025 4:03 PM EDT documented in this encounter [facility] 08-04-2025 Plan of care note Problem: OT - ADLs Goal: Lower Body Dressing - Patient will complete lower body dressing tasks with contact guard assistance using adaptive equipment/compensatory strategies as needed for improved ability to complete self-care activities. Outcome: Ongoing Goal: Grooming - Patient will complete grooming in standing with minimal assistance for improved ability to safely complete ADLs. Outcome: Ongoing Goal: Bathing - Patient will perform full body bathing routine with minimal assistance while seated for improved ability to complete self-care activities Outcome: Ongoing Problem: OT - Transfers Goal: Transfers Sit/Stand - Patient will demonstrate good safety awareness during sit to/from stand functional transfer with minimal assistance and least restrictive device to demonstrate safe functional transfers. Outcome: Ongoing Problem: OT - Balance Goal: Balance - Standing - Patient will perform 10 minutes of functional task in standing with minimal assistance and good balance to promote safety and improved balance required for self-care activities. Outcome: Ongoing Problem: OT - Vision Goal: Visual Scanning ADL - Patient will employ use of visual compensatory strategies with no greater than min cues in 5/5 trials to increase participation and safety in ADLs. Outcome: Ongoing [facility] 08-04-2025 Plan of care note Problem: Dysphagia Goal: FEES - Patient will participate in Fiberoptic Endoscopic Evaluation of Swallowing (FEES) study to objectively assess pharyngeal swallow function to most appropriately guide BOAT RIGGER plan of care Outcome: Ongoing Problem: BOAT RIGGER - Cognition Goal: Metacognition - Patient will identify at least 3 deficits related to medical condition and how deficits will impact ability to return home with fading cues to improve safety and independence Outcome: Ongoing Goal: Ongoing Assessment - Patient will participate in ongoing dynamic assessment of reading, writing, and cognitive-linguistic skills across 1 session to better assess deficits and most appropriately guide BOAT RIGGER plan of care Outcome: Ongoing Problem: BOAT RIGGER - Motor Speech Goal: Intelligibility Strategies - Patient will teach back and utilize intelligibility strategies in structure and in conversation to improve intelligibility to at least 80%, with minimal cues Outcome: Ongoing [facility] 08-04-2025 Plan of care note Problem: PT - General Goals Goal: Supine <-> Sit Transfers - Patient will perform supine to/from sit transfers with modified independence and without use of hospital bed features in order to improve functional mobility and safety. Outcome: Ongoing Goal: Sit <-> Stand Transfers - Patient will perform sit to/from stand transfers with standby assistance and least restrictive device in order to improve functional mobility and safety. Outcome: Ongoing Goal: Stand/Squat Pivot Transfers - Patient will perform stand pivot transfer to/from bed/chair/commode with standby assistance and least restrictive device in order to improve functional mobility and safety. Outcome: Ongoing Goal: Ambulation - Patient will ambulate 75 feet with standby assistance and least restrictive device to improve ability to safely navigate home and community. Outcome: Ongoing [facility] 08-04-2025 Plan of care note Neurosurgery Update: Consulted for Known pontine tegmentum and right basal ganglia stroke. No thinner, LKW midnight last evening . 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 Repeat imaging stable. No neurosurgical intervention at this time. - Please have patient follow up with Dr. Quintana in 2 weeks with repeat CTH - OK for DVT ppx 24hr after last stable CTH - Will discuss Aspirin and potential further intervention at that time - Neurosurgery will sign-off. Please call with questions. Salazar Tate MD, Neurosurgery NS2 ([phone]) [facility] Work Phone: 08-03-2025 Procedure note Associated Ord er(s): *ARTERIAL LINE Post-Procedure Diagnose(s): Nontraumatic intracerebral hemorrhage, unspecified cerebral location, unspecified laterality *ARTERIAL LINE Procedure Date:: 08/03/2025 Start Time:: 14:50 EDT Performed by: CYNTHIA Marcelino Authorized by: CYNTHIA Marcelino Staff: Name of Copyright Clerk: CYNTHIA Colon Name of Copyright Clerk: Twan Cazares RN Consent Written consent obtained Consent given by: patient Risks and benefits were discussed. Risks discussed: arterial occlusion, bleeding, limb ischemia and limb loss Alternatives discussed: no treatment and delayed treatment Indications Indications: hemodynamic monitoring [place] Protocol The patient states understanding of procedure being performed. The patient's understanding of the procedure matches consent given Procedure consent matches procedure scheduled. Relevant documents present and verified: Yes Test results available and properly labeled: Yes Site marked: Yes Imaging studies available: Yes Required blood products, implants, devices, and special equipment available Patient identity confirmed: verbally with patient, arm band and hospital-assigned identification number Immediately prior to the procedure a timeout was called. Pre Procedure Details Hand hygiene used Landmarks identified Antiseptic used: skin prepped with ChloraPrep Skin prep agent completely dried prior to procedure Maximum sterile barriers were used: cap, mask, sterile gown, sterile gloves, and large sterile sheet Anesthesia Local anesthesia used: yes Local: local infiltration Local Anesthetic: 1% Lidocaine Anesthetic total: 2 mL Sedation Patient not sedated Procedure Details Location: Right radial artery Site selection rationale: strong pulse on doppler Patient Position: Lying in bed Placement Technique: Ultrasound guided Number of attempts: 2 Transducer: waveform confirmed Procedure stop date: 08/03/2025 Procedure stop time: 15:40 EDT Procedure Vital Signs Monitored Post Procedure Successful Placement?: Yes Ultrasound guidance on successful attempt: Yes Sterile ultrasound: Sterile ultrasound gel and probe cover used Imaging Saved?: No Preliminary ultrasound demonstrated a patent vascular access. Guidewire removal confirmed: Yes Line secured with suture. Dressing applied: Sterile Post Procedure Diagnosis: ICH Estimated Blood Loss: < 10 mL Disposition of Specimen: No specimen was removed Complications: Local hematoma Patient tolerance: Patient tolerated the procedure well with no immediate complications Post-procedure circulation, movement, sensation: Unchanged Additional Documentation Known chronic thrombocytopenia, 1 pool plts infusing at time of procedure with repeat plts following infusion. I performed the procedure myself Cosigned by CYNTHIA Colon at 08/03/2025 4:03 PM EDT [facility] 08-03-2025 History and physical note NEUROCRITICAL CARE HISTORY AND PHYSICAL HOSPITAL VISIT DEMOGRAPHICS Patient: Esvin Guerrier Jr. Code status: Full Code Admission date: 08/03/2025 9:35 AM Hospital days: LOS: 0 days CHIEF COMPLAINT Dizziness, nausea and vomiting HISTORY OF PRESENT ILLNESS Esvin Guerrier Jr. is a 64 y.o. male with a past history of L basal ganglia ICH (2019), HTN, throat cancer, partially deaf, and hepatitis c who presented to OSH with c/o dizziness, N/V, evaluated for stroke alert with LKW 2400 08/02/25, reportedly non-adherence to anti-HTN medications. BP on presentation 220/116, CT H revealed a pontine hemorrhage and small R basal ganglia hyperdensity. 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 INTERVAL HISTORY SINCE ADMISSION 08/03/2025: admitted to NCCU, BP responded well to cardene from ED, BP 98/77 (84) on arrival to NCCU, weaning cardene to SBP <140. REVIEW OF SYSTEMS Constitutional: negative for no signs or symptoms of infection and no significant changes in appetite or weight Skin: positive for change in color and ecchymosis (media in chart) Head and Neck: negative Eyes: negative Ears: positive for loss of hearing Nose: negative Mouth and Throat: positive for difficulty speaking baseline slurred language per pt/family Cardiovascular: negative Respiratory: negative Gastrointestinal: negative for nausea and vomiting Genitourinary: positive for hesitancy/slow stream Musculoskeletal: positive for ambulated with a cane Neurologic: positive for pseudobulbar affect (daughters endorse that pt has baseline of inappropriate laughing and crying episodes) (POA) Psychiatric: negative HISTORY Past Medical History[1] Past Surgical History[2] Social History Socioeconomic History Marital status: Spouse name: Not on file Number of children: Not on file Years of education: Not on file Highest education level: Not on file Occupational History Not on file Tobacco Use Smoking status: Every Day Current packs/day: 1.00 Types: Cigarettes Smokeless tobacco: Not on file Substance and Sexual Activity Alcohol use: Yes Alcohol/week: 6.0 - 12.0 standard drinks of alcohol Types: 6 - 12 Standard drinks or equivalent per week Drug use: Yes Frequency: 7.0 times per week Types: Cocaine, Methamphetamines, Marijuana Comment: daily marijana Sexual activity: Not on file Other Topics Concern Not on file Social History Narrative Not on file Social Drivers of Health Financial Resource Strain: Not on file Food Insecurity: Not on file Transportation Needs: Not on file Physical Activity: Not on file Stress: Not on file Social Connections: Not on file Personal Safety: Not on file Housing Stability: Not on file ALLERGIES AND HOME MEDICATIONS Allergies: has no known allergies. Home Medications: Prescriptions Prior to Admission[3] Pt stopped all OP medications > 6 months ago Prior to Arrival Meds: Prescriptions Prior to Admission[4] Hospital Medications: Infusions: niCARdipine 12.5 mg/hr (08/03/25 1600) Sodium chloride 0.9% Stopped (08/03/25 1548) Sodium chloride 0.9% 1 mL/hr at 08/03/25 1600 Scheduled: nicotine 1 patch Transdermal Q24H And VERIFY LINKED PATCH PLACEMENT Other Q12H Senna 8.6 mg Oral Daily Or Senna 8.6 mg Per NG tube Daily Sodium chloride 0.9% 0-250 mL Intravenous See admin instructions Sodium chloride 0.9% 0-250 mL Intravenous See admin instructions PRN: Acetaminophen OR Acetaminophen, Calcium Gluconate OR calcium gluconate, hydrALAZINE OR hydrALAZINE, Labetalol OR Labetalol, magnesium sulfate, Ondansetron 4mg/2ml OR Ondansetron, Polyethylene glycol OR Polyethylene glycol, potassium chloride OR Potassium chloride OR Potassium Bicarb-Citric Acid OR potassium chloride, Sodium chloride 0.9%, sodium phosphate OR sodium phosphate PHYSICAL EXAM GENERAL: Alert, no acute distress HEENT: normocephalic, no scalp wounds nor lesions CARDIO: +S1S2, RRR, no murmurs, no edema PULM: clear to auscultation bilaterally, equal chest rise; RA ABDOMINAL: soft, nontender, nondistended, active bowel sounds, LBM 08/01 EXTREMITIES: scab to R jarquin POA, dark purple ecchymosis to L back. VASCULAR: 2+ distal pulses, capillary refill <3 seconds, NEURO: Mental status: alert; oriented to person, place, year, and month; good attention Speech/language: fluent; comprehension intact; object naming intact; repetition intact Cranial nerves: CN II: Visual gutierrez intact to confrontation. 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 No nystagmus. CN V: Facial sensation intact to light touch. CN VII: Facial strength normal with symmetric movement. CN VIII: Hearing is grossly intact. CN IX and X: Soft palate elevates symmetrically in the midline CN XI: Shoulder shrug and sternocleidomastoid strength 5/5 bilaterally CN XII: Tongue is midline with normal movement; Motor: Normal bulk and tone. No UE drift. Sensation: Extremity sensation intact throughout. Coordination: No ataxia, dysmetria FTS ASSESSMENT AND PLAN Neuro: (08/03) Acute pontine ICH, ICH score 1 Peripheral neuropathy - ICH Management: - Monitor neurostatus with neurochecks Q1H and pupilometer Q1H - Prevent further expansion with goal SBP <140 (see cards) - Seizure prophylaxis (per NSG): none - 08/03 NSGY consult: no acute neurosurgical intervention. MRI B w/o contrast planned for 24 hours. - Daily NIHSS: NIH Stroke Scale: NIH Level of Conciousness (Provider): 0 NIH LOC Questions (Provider): 0 NIH LOC Commands (Provider): 0 NIH Best Gaze (Provider): 0 NIH Visual (Provider): 0 NIH Facial Palsy (Provider): 0 NIH Left Arm Motor (Provider): 0 NIH Right Arm Motor (Provider): 0 NIH Left Leg Motor (Provider): 0 NIH Right Leg Motor (Provider): 0 NIH Limb Ataxia (Provider): 0 NIH Sensory (Provider): 0 NIH Best Language (Provider): 1 NIH Dysarthria (Provider): 2 NIH Extinction and Inattention (Provider): 0 NIH Total Score (Provider): 3 - Imaging: - 08/03 CTA H/N: artherosclerosis contribute to severe stenosis of R ICA at the bifurcation and the origin of the left CCA, with further mild/mod stenosis involving more distal segments. 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 Known severe right vertebral arterial stenosis to prior exam - 08/03 1004: Initial CT H: hyperdensities within right basal ganglia while could be hemorrhage but could be calcification and valentin are concerning for acute hemorrhage. - 08/03 1600: 6H-stability CT H: stable. - MRI B: P for 08/05/2025 - Cytotoxic Cerebral Edema Management: - Goal Na 135 - 145; monitor Na Q24H Recent Labs 08/03/25 1009 SODIUM 135 OSMOLALITY 290 CHLORIDE 102 - Hemorrhage presumably 2/2 uncontrolled HTN etiology and stimulant use disorder; evaluation for cause and source: - Complete TTE (see cards) - Obtain LDL level and statin therapy if indicated (see cards) - Obtain HA1C level (see endo) - Defer antiplatelet therapy and therapeutic anticoagulation - Consider urine drug screen on admission if no stroke risk factors - Initiate VTE prophylaxis after bleed stability established (see heme) Pain/Sedation management: - Tylenol 650mg Q4H PRN - reports previous use of gabapentin, found it to be ineffective Psych: pseudobulbar affect Fluctuation of inappropriate laughing/crying POA, daughters endorse this is his baseline. Stimulant use disorder Urine tox screen pos on admission for methamphetamines, cocaine, and marijuana. Pt endorses last use was 7 days [employer] while on a fishing trip with the exception of daily marijuana. Hx of ETOH Pt denies recent alcohol use, daughters endorse sobriety for years with relapse 2 months ago with now 3x/wk drinking. Pulm: No Current Issues O2 Sat (%): 94 % (08/03 1600) O2 Device: room air (08/03 1400) - Goal SpO2 >92%; wean FiO2 as tolerated - [id number], encourage pulmonary toileting Cards: HTN Urgency BP 220/116 on presentation to OSH, Temp: [97.5 F (36.4 C)-97.9 F (36.6 C)] 97.6 F (36.4 C) Pulse (Heart Rate): [68-93] 84 Resp Rate: [16-30] 22 BP: (98-164)/(55-93) 142/76 Arterial Line (1) BP: (150)/(70) 150/70 O2 Sat (%): [93 %-99 %] 94 % Weight: [97.3 kg (214 lb 8.1 oz)] 97.3 kg (214 lb 8.1 oz) - Goal SBP <140, MAP >65 - Home antihypertensives: none, reviewed filled history with no recent fills. - Current regimen: - PRN labetalol and hydralazine - 09/2020 TTE: EF 55-60% - 08/03 ECG: NSR - 08/03 troponin 9 - Statin Therapy: Indicated if LDL >70; Recent Labs 08/03/25 1009 CHOLESTEROL 154 TRIG 119 HDL 40 Renal/: No Current Issues Fluid Balance: - Goal: euvolemia - Maintenance: 0.9NS 2 75cc/hr, Intake/Output Summary (Last 24 hours) at 08/03/2025 1805 Last data filed at 08/03/2025 1600 Gross per 24 hour Intake 307.1 ml Output 255 ml Net 52.1 ml - Daily Chem 10; electrolytes replaced per NCCU protocol Recent Labs 08/03/25 1009 SODIUM 135 POTASSIUM 4.3 CHLORIDE 102 CO2 24 BUN 20 CREATSERUM 1.24 GI/Nutrition: Reported bright red bleeding per rectum recent <6 months, per pt and family was evaluated at OSH and source believed to be hemorrhoids Recent Labs 08/03/25 1009 ALBUMIN 4.0 BILIDIRECT 0.1 BILITOTAL 0.6 ALKPHOS 59 ALT 31 AST 34 TP 7.5 - DIET NPO WITHOUT meds - [place] Swallow Screening Result: failed=NPO awaiting BOAT RIGGER consult 2/2 cough with thin liquids with [place] on admission. Previously seen and passed FEES with BOAT RIGGER (2019) for thin liquids with regular diet. Bowel regimen: - - Senna, prn miralax Endo: No Current Issues - Goal blood glucose 140-180 - Insulin SSI: monitor for initiation Recent Labs 08/03/25 1009 GLUCOSE 145 ID: Acute Leukocytosis 2/2 reactive Recent Labs 08/03/25 1009 WBC 10.63* - Temp (24hrs), Av.6 F (36.4 C), Min:97.5 F (36.4 C), Max:97.9 F (36.6 C) - PRN Tylenol for T>100.4F - Most recent and positive cultures: Date Collected Source Result Date Finalized - Antiinfectives: Start Date Antiinfective Coverage Course Length Stop Date Heme/Onc: Thrombocytopenia 2/2 Hepatitis C Virus Evaluated by heme on prior admission, no further recs. Pt denies IV drug use on admission Recent Labs 08/03/25 1009 08/03/25 1649 WBC 10.63* -- RBC 4.99 -- HGB 15.0 -- HCT 43.2 -- PLATELET 47* 64* PT 13.7 -- PTT 30.2 -- INR 1.0 -- - Goal plt >75, INR <1.4, Hgb >7 - Blood products given: 2 pools plt DVT prophylaxis: - defer chemical PPx for acute ICH, - SCD's Musc: No Current Issues - PT/OT consulted and following - Current Activity Order: advance as tolerated Fall Risk: - Assessed for patient fall risk and discussed safety measures during rounding. - known gait disturbance, ambulates with a cane at baseline. Social/Dispo: - Code status: Full Code - Discharge planning per PCRM/SW. Nicotine Dependence Use per Day: 1ppd Patient is not ready to quit Discussed pharmacotherapy. Offered Rx to be sent to pharmacy of choice. We discussed health risks and resources. Offered referral to [facility] Smoking Cessation clinic (AMB REFERRAL TO SMOKING CESSATION) Spent 3-5 minutes counseling on this topic Nicotine patch Quality Self-Check Complexity. Thrombocytopenia - Continue to monitor. Obesity, class I Body mass index is 30.78 kg/m . - Follow with PCP for dietary and lifestyle modifications. Wound Documentation Wound 08/03/25 1230 Lateral;Left;Lower Back (Active) Date First Assessed/Time First Assessed: 08/03/25 1230 Wound Location Orientation: Lateral;Left;Lower Location: Back Any conditions listed below are present on admission unless otherwise specified. . ICU Checklist: [x] Assess pain Presence of Pain: denies pain/discomfort Presence of Pain Score (Auto-calculated): 0 [x] Both SAT & SBT [x] Choice of analgesia/ sedation See neuro [x] Delirium [x] Early mobility PT/OT consulted?: Yes [x] Family Engagement Primary Emergency Contact: Amberly Allen Last updated: 08/03 daughters updated POA at bedside. [x] Get lines out Arterial line: inserted 08/03/2025, (indication: hemodynamic monitoring) Central lines: none Discussed with NCCU Attending, Dr. Pamela Charles, SENIOR CLINICAL DATA COORDINATOR-FLIGHT MANAGER 08/03/25 6:05 PM Check the treatment team to find the assigned neurocritical care provider (resident, fellow, BOX SEALING MACHINE OPERATOR, or PA) or page the corresponding number below NCC1 (Beds [id number]): pager #[phone] [facility] (Beds [phone], [address] [place] [address], 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 aphasia, R sided weakness, numbness; CT/MR L basal ganglia, white matter ICH, tiny DWI lesion bilateral frontal white matter, microhemorrhage R basal ganglia, multiple in valentin; CTA no vascular malformation, severe tenosis proximal R ICA, moderate stenosis distally, moderate stenosis origin L vertebral, severe stenosis proximal R vertebral with focal occlusion Kidney stone Throat cancer [2] Past Surgical History: Procedure Laterality Date OSTEOTOMY MANDIBLE with plate SHOULDER SURGERY [3] Medications Prior to Admission Medication Sig Dispense Refill Last Dose/Taking lisinopril 40 MG tablet Take 1 tablet by mouth daily. 60 tablet 1 NIFEdipine 30 MG Tab SR 24 HR Take 1 tablet by mouth every 12 hours. 60 tablet 1 [4] Medications Prior to Admission Medication Sig Dispense Refill Last Dose/Taking lisinopril 40 MG tablet Take 1 tablet by mouth daily. 60 tablet 1 NIFEdipine 30 MG Tab SR 24 HR Take 1 tablet by mouth every 12 hours. 60 tablet 1 Cosigned by Mateo Santiago MD, PhD at 08/03/2025 11:47 PM EDT [facility] 08-03-2025 History and physical note NEUROCRITICAL CARE HISTORY AND PHYSICAL HOSPITAL VISIT DEMOGRAPHICS Patient: Esvin Guerrier Jr. Code status: Full Code Admission date: 08/03/2025 9:35 AM Hospital days: LOS: 0 days CHIEF COMPLAINT Dizziness, nausea and vomiting HISTORY OF PRESENT ILLNESS Esvin Guerrier Jr. is a 64 y.o. male with a past history of L basal ganglia ICH (2019), HTN, throat cancer, partially deaf, and hepatitis c who presented to OSH with c/o dizziness, N/V, evaluated for stroke alert with LKW 2400 08/02/25, reportedly non-adherence to anti-HTN medications. BP on presentation 220/116, CT H revealed a pontine hemorrhage and small R basal ganglia hyperdensity. 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 INTERVAL HISTORY SINCE ADMISSION 08/03/2025: admitted to NCCU, BP responded well to cardene from ED, BP 98/77 (84) on arrival to NCCU, weaning cardene to SBP <140. REVIEW OF SYSTEMS Constitutional: negative for no signs or symptoms of infection and no significant changes in appetite or weight Skin: positive for change in color and ecchymosis (media in chart) Head and Neck: negative Eyes: negative Ears: positive for loss of hearing Nose: negative Mouth and Throat: positive for difficulty speaking baseline slurred language per pt/family Cardiovascular: negative Respiratory: negative Gastrointestinal: negative for nausea and vomiting Genitourinary: positive for hesitancy/slow stream Musculoskeletal: positive for ambulated with a cane Neurologic: positive for pseudobulbar affect (daughters endorse that pt has baseline of inappropriate laughing and crying episodes) (POA) Psychiatric: negative HISTORY Past Medical History[1] Past Surgical History[2] Social History Socioeconomic History Marital status: Spouse name: Not on file Number of children: Not on file Years of education: Not on file Highest education level: Not on file Occupational History Not on file Tobacco Use Smoking status: Every Day Current packs/day: 1.00 Types: Cigarettes Smokeless tobacco: Not on file Substance and Sexual Activity Alcohol use: Yes Alcohol/week: 6.0 - 12.0 standard drinks of alcohol Types: 6 - 12 Standard drinks or equivalent per week Drug use: Yes Frequency: 7.0 times per week Types: Cocaine, Methamphetamines, Marijuana Comment: daily marijana Sexual activity: Not on file Other Topics Concern Not on file Social History Narrative Not on file Social Drivers of Health Financial Resource Strain: Not on file Food Insecurity: Not on file Transportation Needs: Not on file Physical Activity: Not on file Stress: Not on file Social Connections: Not on file Personal Safety: Not on file Housing Stability: Not on file ALLERGIES AND HOME MEDICATIONS Allergies: has no known allergies. Home Medications: Prescriptions Prior to Admission[3] Pt stopped all OP medications > 6 months ago Prior to Arrival Meds: Prescriptions Prior to Admission[4] Hospital Medications: Infusions: niCARdipine 12.5 mg/hr (08/03/25 1600) Sodium chloride 0.9% Stopped (08/03/25 1548) Sodium chloride 0.9% 1 mL/hr at 08/03/25 1600 Scheduled: nicotine 1 patch Transdermal Q24H And VERIFY LINKED PATCH PLACEMENT Other Q12H Senna 8.6 mg Oral Daily Or Senna 8.6 mg Per NG tube Daily Sodium chloride 0.9% 0-250 mL Intravenous See admin instructions Sodium chloride 0.9% 0-250 mL Intravenous See admin instructions PRN: Acetaminophen OR Acetaminophen, Calcium Gluconate OR calcium gluconate, hydrALAZINE OR hydrALAZINE, Labetalol OR Labetalol, magnesium sulfate, Ondansetron 4mg/2ml OR Ondansetron, Polyethylene glycol OR Polyethylene glycol, potassium chloride OR Potassium chloride OR Potassium Bicarb-Citric Acid OR potassium chloride, Sodium chloride 0.9%, sodium phosphate OR sodium phosphate PHYSICAL EXAM GENERAL: Alert, no acute distress HEENT: normocephalic, no scalp wounds nor lesions CARDIO: +S1S2, RRR, no murmurs, no edema PULM: clear to auscultation bilaterally, equal chest rise; RA ABDOMINAL: soft, nontender, nondistended, active bowel sounds, LBM 08/01 EXTREMITIES: scab to R jarquin POA, dark purple ecchymosis to L back. VASCULAR: 2+ distal pulses, capillary refill <3 seconds, NEURO: Mental status: alert; oriented to person, place, year, and month; good attention Speech/language: fluent; comprehension intact; object naming intact; repetition intact Cranial nerves: CN II: Visual gutierrez intact to confrontation. 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 No nystagmus. CN V: Facial sensation intact to light touch. CN VII: Facial strength normal with symmetric movement. CN VIII: Hearing is grossly intact. CN IX and X: Soft palate elevates symmetrically in the midline CN XI: Shoulder shrug and sternocleidomastoid strength 5/5 bilaterally CN XII: Tongue is midline with normal movement; Motor: Normal bulk and tone. No UE drift. Sensation: Extremity sensation intact throughout. Coordination: No ataxia, dysmetria FTS ASSESSMENT AND PLAN Neuro: (08/03) Acute pontine ICH, ICH score 1 Peripheral neuropathy - ICH Management: - Monitor neurostatus with neurochecks Q1H and pupilometer Q1H - Prevent further expansion with goal SBP <140 (see cards) - Seizure prophylaxis (per NSG): none - 08/03 NSGY consult: no acute neurosurgical intervention. MRI B w/o contrast planned for 24 hours. - Daily NIHSS: NIH Stroke Scale: NIH Level of Conciousness (Provider): 0 NIH LOC Questions (Provider): 0 NIH LOC Commands (Provider): 0 NIH Best Gaze (Provider): 0 NIH Visual (Provider): 0 NIH Facial Palsy (Provider): 0 NIH Left Arm Motor (Provider): 0 NIH Right Arm Motor (Provider): 0 NIH Left Leg Motor (Provider): 0 NIH Right Leg Motor (Provider): 0 NIH Limb Ataxia (Provider): 0 NIH Sensory (Provider): 0 NIH Best Language (Provider): 1 NIH Dysarthria (Provider): 2 NIH Extinction and Inattention (Provider): 0 NIH Total Score (Provider): 3 - Imaging: - 08/03 CTA H/N: artherosclerosis contribute to severe stenosis of R ICA at the bifurcation and the origin of the left CCA, with further mild/mod stenosis involving more distal segments. 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 Known severe right vertebral arterial stenosis to prior exam - 08/03 1004: Initial CT H: hyperdensities within right basal ganglia while could be hemorrhage but could be calcification and valentin are concerning for acute hemorrhage. - 08/03 1600: 6H-stability CT H: stable. - MRI B: P for 08/05/2025 - Cytotoxic Cerebral Edema Management: - Goal Na 135 - 145; monitor Na Q24H Recent Labs 08/03/25 1009 SODIUM 135 OSMOLALITY 290 CHLORIDE 102 - Hemorrhage presumably 2/2 uncontrolled HTN etiology and stimulant use disorder; evaluation for cause and source: - Complete TTE (see cards) - Obtain LDL level and statin therapy if indicated (see cards) - Obtain HA1C level (see endo) - Defer antiplatelet therapy and therapeutic anticoagulation - Consider urine drug screen on admission if no stroke risk factors - Initiate VTE prophylaxis after bleed stability established (see heme) Pain/Sedation management: - Tylenol 650mg Q4H PRN - reports previous use of gabapentin, found it to be ineffective Psych: pseudobulbar affect Fluctuation of inappropriate laughing/crying POA, daughters endorse this is his baseline. Stimulant use disorder Urine tox screen pos on admission for methamphetamines, cocaine, and marijuana. Pt endorses last use was 7 days [employer] while on a fishing trip with the exception of daily marijuana. Hx of ETOH Pt denies recent alcohol use, daughters endorse sobriety for years with relapse 2 months ago with now 3x/wk drinking. Pulm: No Current Issues O2 Sat (%): 94 % (08/03 1600) O2 Device: room air (08/03 1400) - Goal SpO2 >92%; wean FiO2 as tolerated - [id number], encourage pulmonary toileting Cards: HTN Urgency BP 220/116 on presentation to OSH, Temp: [97.5 F (36.4 C)-97.9 F (36.6 C)] 97.6 F (36.4 C) Pulse (Heart Rate): [68-93] 84 Resp Rate: [16-30] 22 BP: (98-164)/(55-93) 142/76 Arterial Line (1) BP: (150)/(70) 150/70 O2 Sat (%): [93 %-99 %] 94 % Weight: [97.3 kg (214 lb 8.1 oz)] 97.3 kg (214 lb 8.1 oz) - Goal SBP <140, MAP >65 - Home antihypertensives: none, reviewed filled history with no recent fills. - Current regimen: - PRN labetalol and hydralazine - 09/2020 TTE: EF 55-60% - 08/03 ECG: NSR - 08/03 troponin 9 - Statin Therapy: Indicated if LDL >70; Recent Labs 08/03/25 1009 CHOLESTEROL 154 TRIG 119 HDL 40 Renal/: No Current Issues Fluid Balance: - Goal: euvolemia - Maintenance: 0.9NS 2 75cc/hr, Intake/Output Summary (Last 24 hours) at 08/03/2025 1805 Last data filed at 08/03/2025 1600 Gross per 24 hour Intake 307.1 ml Output 255 ml Net 52.1 ml - Daily Chem 10; electrolytes replaced per NCCU protocol Recent Labs 08/03/25 1009 SODIUM 135 POTASSIUM 4.3 CHLORIDE 102 CO2 24 BUN 20 CREATSERUM 1.24 GI/Nutrition: Reported bright red bleeding per rectum recent <6 months, per pt and family was evaluated at OSH and source believed to be hemorrhoids Recent Labs 08/03/25 1009 ALBUMIN 4.0 BILIDIRECT 0.1 BILITOTAL 0.6 ALKPHOS 59 ALT 31 AST 34 TP 7.5 - DIET NPO WITHOUT meds - [place] Swallow Screening Result: failed=NPO awaiting BOAT RIGGER consult 2/2 cough with thin liquids with [place] on admission. Previously seen and passed FEES with BOAT RIGGER (2019) for thin liquids with regular diet. Bowel regimen: - - Senna, prn miralax Endo: No Current Issues - Goal blood glucose 140-180 - Insulin SSI: monitor for initiation Recent Labs 08/03/25 1009 GLUCOSE 145 ID: Acute Leukocytosis 2/2 reactive Recent Labs 08/03/25 1009 WBC 10.63* - Temp (24hrs), Av.6 F (36.4 C), Min:97.5 F (36.4 C), Max:97.9 F (36.6 C) - PRN Tylenol for T>100.4F - Most recent and positive cultures: Date Collected Source Result Date Finalized - Antiinfectives: Start Date Antiinfective Coverage Course Length Stop Date Heme/Onc: Thrombocytopenia 2/2 Hepatitis C Virus Evaluated by heme on prior admission, no further recs. Pt denies IV drug use on admission Recent Labs 08/03/25 1009 08/03/25 1649 WBC 10.63* -- RBC 4.99 -- HGB 15.0 -- HCT 43.2 -- PLATELET 47* 64* PT 13.7 -- PTT 30.2 -- INR 1.0 -- - Goal plt >75, INR <1.4, Hgb >7 - Blood products given: 2 pools plt DVT prophylaxis: - defer chemical PPx for acute ICH, - SCD's Musc: No Current Issues - PT/OT consulted and following - Current Activity Order: advance as tolerated Fall Risk: - Assessed for patient fall risk and discussed safety measures during rounding. - known gait disturbance, ambulates with a cane at baseline. Social/Dispo: - Code status: Full Code - Discharge planning per PCRM/SW. Nicotine Dependence Use per Day: 1ppd Patient is not ready to quit Discussed pharmacotherapy. Offered Rx to be sent to pharmacy of choice. We discussed health risks and resources. Offered referral to [facility] Smoking Cessation clinic (AMB REFERRAL TO SMOKING CESSATION) Spent 3-5 minutes counseling on this topic Nicotine patch Quality Self-Check Complexity. Thrombocytopenia - Continue to monitor. Obesity, class I Body mass index is 30.78 kg/m . - Follow with PCP for dietary and lifestyle modifications. Wound Documentation Wound 08/03/25 1230 Lateral;Left;Lower Back (Active) Date First Assessed/Time First Assessed: 08/03/25 1230 Wound Location Orientation: Lateral;Left;Lower Location: Back Any conditions listed below are present on admission unless otherwise specified. . ICU Checklist: [x] Assess pain Presence of Pain: denies pain/discomfort Presence of Pain Score (Auto-calculated): 0 [x] Both SAT & SBT [x] Choice of analgesia/ sedation See neuro [x] Delirium [x] Early mobility PT/OT consulted?: Yes [x] Family Engagement Primary Emergency Contact: TiffanyAmberly Last updated: 08/03 daughters updated POA at bedside. [x] Get lines out Arterial line: inserted 08/03/2025, (indication: hemodynamic monitoring) Central lines: none Discussed with NCCU Attending, Dr. Pamela Charles, YECENIA-SARA 08/03/25 6:05 PM Check the treatment team to find the assigned neurocritical care provider (resident, fellow, BOX SEALING MACHINE OPERATOR, or PA) or page the corresponding number below NCC1 (Beds [id number]): pager #[phone] NCC2 (Beds 1251-9951, [facility], and 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, R sided weakness, numbness; CT/MR L basal ganglia, white matter ICH, tiny DWI lesion bilateral frontal white matter, microhemorrhage R basal ganglia, multiple in valentin; CTA no vascular malformation, severe tenosis proximal R ICA, moderate stenosis distally, moderate stenosis origin L vertebral, severe stenosis proximal R vertebral with focal occlusion Kidney stone Throat cancer [2] Past Surgical History: Procedure Laterality Date OSTEOTOMY MANDIBLE with plate SHOULDER SURGERY [3] Medications Prior to Admission Medication Sig Dispense Refill Last Dose/Taking lisinopril 40 MG tablet Take 1 tablet by mouth daily. 60 tablet 1 NIFEdipine 30 MG Tab SR 24 HR Take 1 tablet by mouth every 12 hours. 60 tablet 1 [4] Medications Prior to Admission Medication Sig Dispense Refill Last Dose/Taking lisinopril 40 MG tablet Take 1 tablet by mouth daily. 60 tablet 1 NIFEdipine 30 MG Tab SR 24 HR Take 1 tablet by mouth every 12 hours. 60 tablet 1 Cosigned by Mateo Santiago MD, PhD at 08/03/2025 11:47 PM EDT documented in this encounter [facility] 08-03-2025 Note Acute Coronary Syndr ome (ACS): Initial Evaluation and Management: [email or web address] [email or web address] [email or web address] 08-03-2025 Consult note Formatting of th is note is different from the original. Images from the original note were not included. Neurovascular Evaluation Note Evaluation Date: 08/03/2025 Unit: [id number] Consultation was requested by Dr. Mateo Santiago MD, PhD Patient status: Observation Length of stay: 0 days Reason for Consult Hemorrhagic Transfer History of Present Illness Esvin Guerrier Jr. is a 64 y.o. 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 LNW midnight, He woke upwiith headache, nausea, and vomiting. Initial NIH 4 for vision and speech. Initial SBP was 220. When he got here, his NIH was 3. He is alert and follows commands though difficulty hearing. He had fluctuating chronic slurred speech per EMS. Here at [facility], CTH shows possible R BG ganglia and pontine hemorrhage, and hypodensity in the left BG which is likely remote finding based on the history. A stroke alert was called for STAT consultation. Time of Level 1 Stroke Alert Activation (Or In House): 934 Arrival Time of Stroke Team : 934 Patient Location - Onset of Symptoms: Other acute healthcare facility Patient first presented to an [facility] ED facility: no Last Known Well: Date: 08/03/25 Last Known Well: Time: 0000 Source of information: Outside facility medical record Review of Systems ROS negative unless described above A complete review of systems was negative except for: none except for noted in HPI ROS not obtained due to emergent stroke evaluation Neurovascular-specific History / Information Home antiplatelet/anticoagulation therapy: Antiplatelet therapy: none Anticoagulation: none. Patient Current Risk Factors: Stroke risk factors include hypertension. Prior stroke history: yes; hemorrhagic. Location: leftbasal ganglia . Family Hx of Stroke: Parents: unknown Siblings: unknown Stroke Diagnostic/Treatment Eligibility Information Thrombolytic not recommended as patient has hemorrhage. Time to TNK delayed due to: N/A Stroke Clinical Assessment Information: NIHSS (Provider) Flowsheet Row First Filed Value Provider NIH Stroke Scale NIH Interval (Provider) -- NIH Level of Conciousness (Provider) 0 filed on 08/03/2025 1038 NIH LOC Questions (Provider) 0 filed on 08/03/2025 1038 NIH LOC Commands (Provider) 0 filed on 08/03/2025 1038 NIH Best Gaze (Provider) 0 filed on 08/03/2025 1038 NIH Visual (Provider) 0 filed on 08/03/2025 1038 NIH Facial Palsy (Provider) 0 filed on 08/03/2025 1038 NIH Left Arm Motor (Provider) 0 filed on 08/03/2025 1038 NIH Right Arm Motor (Provider) 0 filed on 08/03/2025 1038 NIH Left Leg Motor (Provider) 0 filed on 08/03/2025 1038 NIH Right Leg Motor (Provider) 0 filed on 08/03/2025 1038 NIH Limb Ataxia (Provider) 0 filed on 08/03/2025 1038 NIH Sensory (Provider) 0 filed on 08/03/2025 1038 NIH Best Language (Provider) 1 filed on 08/03/2025 1038 NIH Dysarthria (Provider) 2 filed on 08/03/2025 1038 NIH Extinction and Inattention (Provider) 0 filed on 08/03/2025 1038 NIH Total Score (Provider) 3 filed on 08/03/2025 1038 Is NIH=0 Within 180 min of Last Known Well Time? -- Stroke Scales Flowsheet Row Most Recent Value NIH Total Score (Provider) 3 filed on 08/03/2025 1038 Past Medical History Medical History: Past Medical History[1] SURGICAL HISTORY: Past Surgical History[2] SOCIAL HISTORY: Social History[3] Medications PRIOR TO ARRIVAL MEDS: Prior to Admission medications Medication Sig Start Date End Date Taking? Authorizing Provider lisinopril 40 MG tablet Take 1 tablet by mouth daily. 10/08/20 Willy A Daron, SENIOR CLINICAL DATA COORDINATOR-FLIGHT MANAGER NIFEdipine 30 MG Tab SR 24 HR Take 1 tablet by mouth every 12 hours. 10/08/20 Willy Neri, YECENIA-SARA Current Meds: Current Facility Administered Meds:Current Medications[4] Scheduled Meds: Continuous Infusions: niCARdipine 15 mg/hr (08/03/25 1020) PRN Meds:hydrALAZINE, Labetalol Vitals Objective Findings: Vital Signs (24hrs): Temp: [97.5 F (36.4 C)-97.7 F (36.5 C)] 97.7 F (36.5 C) Pulse (Heart Rate): [72-93] 93 Resp Rate: [16-30] 16 BP: (114-164)/(60-93) 144/93 O2 Sat (%): [95 %-98 %] 98 % Weight: [97.3 kg (214 lb 8.1 oz)] 97.3 kg (214 lb 8.1 oz) Body mass index is 30.78 kg/m . Lines/Drains/Airways/Wounds: Patient Lines/Drains/Airways Status Active Lines, Drains, Airways, & Wound Overview Name Placement date Placement time Site Days Peripheral IV Line - Single Lumen 08/03/25 metacarpal vein (top of hand), right 20 gauge 08/03/25 -- -- less than 1 Peripheral IV Line - Single Lumen 08/03/25 median cubital vein (antecubital fossa), left 18 gauge 08/03/25 -- -- less than 1 Physical Exam General: Laying comfortably in bed; in no acute distress. Neurological Examination Psych and Mental status: alert; responsive to verbal stimuli, has difficulty hearing Speech/language: fluent; comprehension intact; object naming intact; repetition intact, slurred speech (unclear chronic or acute) Cranial nerves: CN II visual gutierrez full to confrontation without visual extinction CN III, IV, EOMI CN V facial sensation intact to light touch bilaterally in V1, V2, V3 CN VII face grossly symmetric CN VIII hearing grossly intact to voice CN IX & X no dysarthria noted Motor: Right Arm: no drift Left Arm: no drift Right Leg: no drift Left Leg: no drift Coordination: Abigih-ar-lhkp intact bilaterally. Tcmw-su-ekvb intact bilaterally. Sensation: intact to light touch throughout without extinction. Laboratory Results Diagnostics/Procedures: Labs-CBC Labs-Chem 7(PMC) Labs-Coags Ptt/Pt/Inr: 30.2/13.7/1.0 (08/03 1009) Additional Labs Lab Results Component Value Date CHOLESTEROL 142 10/04/2020 CHOLESTEROL 142 10/04/2020 TRIG 139 10/04/2020 TRIG 139 10/04/2020 HDL 43 10/04/2020 HDL 43 10/04/2020 LDLCALC 71 10/04/2020 LDLCALC 71 10/04/2020 Labs-Hemoglobin A1C Hemoglobin A1C HPLC Date Value Ref Range Status 10/04/2020 5.0 4.7 - 5.6 % Final Imaging CT Stroke Head: pontine bleed at OSH CT STROKE ANGIO BRAIN/NECK CT STROKE HEAD-STROKE ALERT ONLY Final Result IMPRESSION: 1. Hyperdensities within the right basal ganglia and valentin are concerning for acute hemorrhage as reported at the outside hospital. However, given lack of access to the outside comparison images and the retention of dense intravascular contrast in the brain, cannot definitively rule out that these are enhancing lesions, given the patient's history of malignancy. 2. No significant edema or mass effect. No acute infarct or hydrocephalus. 3. Remote left lacunar infarct. Findings were discussed with Sasha Brown MD at 1004 on August 03, 2025. I personally viewed and interpreted these images and I have reviewed and approved this report. HEAD WITHOUT CONTRAST (Results Pending) Assessment/Impression Esvin Guerrier Jr. is a 64 y.o. 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 CTH shows a new pontine hemorrhage and possible new right BG hemorrhage which could be residual contrast. Patient is alert and oriented, and follows commands. Exam is mostly intact except for dysarthria. (I scored 1 for aphasia because patient could not explain NIH card picture but naming/comprehension is intact). Admit to NCCU for BP control and serial scans as written below. Plan -Please admit to Neurocritical care (NCC), attending Dr. Santiago. A hemorrhagic stroke order set has been signed and held. ICH score 0 -Neurosurgery consulted. Appreciate recommendations -Check PT/INR/PTT and reverse any coagulopathy -Blood pressure goals with SBP less than 140 -Repeat a head CT [address] -No anticoagulation, antiplatelet therapy and pharmacological DVT prophylaxis until a follow up head CT/MRI has been completed to ensure stability of hemorrhage -Obtain brain MRI with and without contrast unless contraindicated -Swallow evaluation prior to any oral intake -ECHO to evaluate cardiac function -Lipid panel, LFTs and HgbA1c to evaluate secondary risk factors -Baseline EKG, if not done in ED. Continuous telemetry -PT, OT, Speech and social and human services assistant consults Other problems: Quality Self-Check Complexity. Obesity, class I Body mass index is 30.78 kg/m . - Follow with PCP for dietary and lifestyle modifications. Wound Documentation Any conditions listed below are present on admission unless otherwise specified. . This plan has been discussed with stroke atttending Dr. Arce and has been communicated to ED and NCCU teams. Kathrine Brown MD 08/03/2025 10:49 AM Other medical problems: # Left BG ICH in 2019 with residual dysarthria #HTN # Hepatitis C # Throat cancer Code Status: Full Code DVT prophylaxis: SCDs Diet: DIET NPO WITHOUT meds Patient and plan discussed with neurovascular attending, Dr. Arce. Kathrine Brown MD PGY-2, Neurology The author of this note does not necessarily reflect the provider on-call. Please page the on-call provider as listed in [employer] with urgent questions, as [employer] Secure Chat is not a reliable method of communication for urgent issues. Note to patient: The Century Cures Act makes medical notes like these available to patients in the interest of transparency. However, be advised this is a medical document. It is intended as ljir-wg-gtza communication. It is written in medical language and may contain abbreviations or verbiage that are unfamiliar. It may appear blunt or direct. Medical documents are intended to carry relevant information, facts as evident, and the clinical opinion of the practitioner. [1] Past Medical History: Diagnosis Date Anxiety Back pain Essential hypertension, benign Hep C w/o coma, chronic ICH (intracerebral hemorrhage) 09/2020 aphasia, R sided weakness, numbness; CT/MR L basal ganglia, white matter ICH, tiny DWI lesion bilateral frontal white matter, microhemorrhage R basal ganglia, multiple in valentin; CTA no vascular malformation, severe tenosis proximal R ICA, moderate stenosis distally, moderate stenosis origin L vertebral, severe stenosis proximal R vertebral with focal occlusion Kidney stone Throat cancer [2] Past Surgical History: Procedure Laterality Date OSTEOTOMY MANDIBLE with plate SHOULDER SURGERY [3] [4] Current Facility-Administered Medications Medication Dose Route Frequency Provider Last Rate Last Admin hydrALAZINE (APRESOLINE) injection 10 mg 10 mg Intravenous Q10 MIN PRN Fernando Ugalde MD Labetalol (NORMODYNE) injection 20 mg 20 mg Intravenous Q10 MIN PRN Fernando Ugalde MD niCARdipine in sodium chloride (CARDENE) 40 mg-0.83/200 ml premix IV infusion 0-15 mg/hr Intravenous Continuous Fernando Ugalde MD 75 mL/hr at 08/03/25 1020 15 mg/hr at 08/03/25 1020 Current Outpatient Medications Medication Sig Dispense Refill lisinopril 40 MG tablet Take 1 tablet by mouth daily. 60 tablet 1 NIFEdipine 30 MG Tab SR 24 HR Take 1 tablet by mouth every 12 hours. 60 tablet 1 Cosigned by Alex Arce DO at 08/03/2025 3:06 PM EDT Associated attestation - Alex Arce DO - 08/03/2025 3:06 PM EDT I saw and independently examined the patient on 08/03/2025. I agree with the history, examination, and medical decision making as outlined. In addition, please see below. 64M w/ uncontrolled HTN, prior ICH. 08/03/25 awoke with headache, sweating, and feeling ill. I saw him on telestroke and no new focal deficits. Does have dysarthria from chronic deafness. CTH w/ posterior pontine infarct abutting the 4th ventricle but without intraventricular extension. Transferred to [facility] and admitted to NCCU in case of ventricular extension requiring EVD. Exam: somnolent, R gaze preference. Impaired lateral gaze in L eye. Deaf, reads lips to communicate. Chronic dysarthria. Hypertensive intracerebral hemorrhage Plan: Strict BP control and regular neuro check per NCCU. Will need to control BP prior to discharge. Alex Arce D.O. Vascular Neurology [facility] The stroke consult service (NV2) is a separate service M-F during daytime hours. On weekends/holidays, the stroke primary service (NV1) will be available to see new consults and to follow up on urgent issues. Otherwise, a stable consult patient will not be seen over the weekend and will be seen by the NV2 team Monday. Please call the NV1 team if any questions over the weekend. Please page Neurovas Stroke Alert/Con F/U to reach the NV2 consult service [facility] Work Phone: 08-03-2025 Consult note Formatting of th is note is different from the original. Images from the original note were not included. Neurovascular Evaluation Note Evaluation Date: 08/03/2025 Unit: [id number] Consultation was requested by Dr. Mateo Santiago MD, PhD Patient status: Observation Length of stay: 0 days Reason for Consult Hemorrhagic Transfer History of Present Illness Esvin Guerrier Jr. is a 64 y.o. 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 LNW midnight, He woke upwiith headache, nausea, and vomiting. Initial NIH 4 for vision and speech. Initial SBP was 220. When he got here, his NIH was 3. He is alert and follows commands though difficulty hearing. He had fluctuating chronic slurred speech per EMS. Here at [facility], CTH shows possible R BG ganglia and pontine hemorrhage, and hypodensity in the left BG which is likely remote finding based on the history. A stroke alert was called for STAT consultation. Time of Level 1 Stroke Alert Activation (Or In House): 934 Arrival Time of Stroke Team : 934 Patient Location - Onset of Symptoms: Other acute healthcare facility Patient first presented to an [facility] ED facility: no Last Known Well: Date: 08/03/25 Last Known Well: Time: 0000 Source of information: Outside facility medical record Review of Systems ROS negative unless described above A complete review of systems was negative except for: none except for noted in HPI ROS not obtained due to emergent stroke evaluation Neurovascular-specific History / Information Home antiplatelet/anticoagulation therapy: Antiplatelet therapy: none Anticoagulation: none. Patient Current Risk Factors: Stroke risk factors include hypertension. Prior stroke history: yes; hemorrhagic. Location: leftbasal ganglia . Family Hx of Stroke: Parents: unknown Siblings: unknown Stroke Diagnostic/Treatment Eligibility Information Thrombolytic not recommended as patient has hemorrhage. Time to TNK delayed due to: N/A Stroke Clinical Assessment Information: NIHSS (Provider) Flowsheet Row First Filed Value Provider NIH Stroke Scale NIH Interval (Provider) -- NIH Level of Conciousness (Provider) 0 filed on 08/03/2025 1038 NIH LOC Questions (Provider) 0 filed on 08/03/2025 1038 NIH LOC Commands (Provider) 0 filed on 08/03/2025 1038 NIH Best Gaze (Provider) 0 filed on 08/03/2025 1038 NIH Visual (Provider) 0 filed on 08/03/2025 1038 NIH Facial Palsy (Provider) 0 filed on 08/03/2025 1038 NIH Left Arm Motor (Provider) 0 filed on 08/03/2025 1038 NIH Right Arm Motor (Provider) 0 filed on 08/03/2025 1038 NIH Left Leg Motor (Provider) 0 filed on 08/03/2025 1038 NIH Right Leg Motor (Provider) 0 filed on 08/03/2025 1038 NIH Limb Ataxia (Provider) 0 filed on 08/03/2025 1038 NIH Sensory (Provider) 0 filed on 08/03/2025 1038 NIH Best Language (Provider) 1 filed on 08/03/2025 1038 NIH Dysarthria (Provider) 2 filed on 08/03/2025 1038 NIH Extinction and Inattention (Provider) 0 filed on 08/03/2025 1038 NIH Total Score (Provider) 3 filed on 08/03/2025 1038 Is NIH=0 Within 180 min of Last Known Well Time? -- Stroke Scales Flowsheet Row Most Recent Value NIH Total Score (Provider) 3 filed on 08/03/2025 1038 Past Medical History Medical History: Past Medical History[1] SURGICAL HISTORY: Past Surgical History[2] SOCIAL HISTORY: Social History[3] Medications PRIOR TO ARRIVAL MEDS: Prior to Admission medications Medication Sig Start Date End Date Taking? Authorizing Provider lisinopril 40 MG tablet Take 1 tablet by mouth daily. 10/08/20 Willy Lm CYNTHIA Neri NIFEdipine 30 MG Tab SR 24 HR Take 1 tablet by mouth every 12 hours. 10/08/20 Willy Amato CYNTHIA Neri Current Meds: Current Facility Administered Meds:Current Medications[4] Scheduled Meds: Continuous Infusions: niCARdipine 15 mg/hr (08/03/25 1020) PRN Meds:hydrALAZINE, Labetalol Vitals Objective Findings: Vital Signs (24hrs): Temp: [97.5 F (36.4 C)-97.7 F (36.5 C)] 97.7 F (36.5 C) Pulse (Heart Rate): [72-93] 93 Resp Rate: [16-30] 16 BP: (114-164)/(60-93) 144/93 O2 Sat (%): [95 %-98 %] 98 % Weight: [97.3 kg (214 lb 8.1 oz)] 97.3 kg (214 lb 8.1 oz) Body mass index is 30.78 kg/m . Lines/Drains/Airways/Wounds: Patient Lines/Drains/Airways Status Active Lines, Drains, Airways, & Wound Overview Name Placement date Placement time Site Days Peripheral IV Line - Single Lumen 08/03/25 metacarpal vein (top of hand), right 20 gauge 08/03/25 -- -- less than 1 Peripheral IV Line - Single Lumen 08/03/25 median cubital vein (antecubital fossa), left 18 gauge 08/03/25 -- -- less than 1 Physical Exam General: Laying comfortably in bed; in no acute distress. Neurological Examination Psych and Mental status: alert; responsive to verbal stimuli, has difficulty hearing Speech/language: fluent; comprehension intact; object naming intact; repetition intact, slurred speech (unclear chronic or acute) Cranial nerves: CN II visual gutierrez full to confrontation without visual extinction CN III, IV, EOMI CN V facial sensation intact to light touch bilaterally in V1, V2, V3 CN VII face grossly symmetric CN VIII hearing grossly intact to voice CN IX & X no dysarthria noted Motor: Right Arm: no drift Left Arm: no drift Right Leg: no drift Left Leg: no drift Coordination: Nybqte-ia-oajv intact bilaterally. Yvme-ew-fdfg intact bilaterally. Sensation: intact to light touch throughout without extinction. Laboratory Results Diagnostics/Procedures: Labs-CBC Labs-Chem 7([facility]) Labs-Coags Ptt/Pt/Inr: 30.2/13.7/1.0 (08/03 1009) Additional Labs Lab Results Component Value Date CHOLESTEROL 142 10/04/2020 CHOLESTEROL 142 10/04/2020 TRIG 139 10/04/2020 TRIG 139 10/04/2020 HDL 43 10/04/2020 HDL 43 10/04/2020 LDLCALC 71 10/04/2020 LDLCALC 71 10/04/2020 Labs-Hemoglobin A1C Hemoglobin A1C HPLC Date Value Ref Range Status 10/04/2020 5.0 4.7 - 5.6 % Final Imaging CT Stroke Head: pontine bleed at [facility] CT STROKE ANGIO BRAIN/NECK CT STROKE HEAD-STROKE ALERT ONLY Final Result IMPRESSION: 1. Hyperdensities within the right basal ganglia and valentin are concerning for acute hemorrhage as reported at the outside hospital. However, given lack of access to the outside comparison images and the retention of dense intravascular contrast in the brain, cannot definitively rule out that these are enhancing lesions, given the patient's history of malignancy. 2. No significant edema or mass effect. No acute infarct or hydrocephalus. 3. Remote left lacunar infarct. Findings were discussed with Sasha Brown MD at 1004 on August 03, 2025. I personally viewed and interpreted these images and I have reviewed and approved this report. HEAD WITHOUT CONTRAST (Results Pending) Assessment/Impression Esvin Guerrier Jr. is a 64 y.o. 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 CTH shows a new pontine hemorrhage and possible new right BG hemorrhage which could be residual contrast. Patient is alert and oriented, and follows commands. Exam is mostly intact except for dysarthria. (I scored 1 for aphasia because patient could not explain NIH card picture but naming/comprehension is intact). Admit to NCCU for BP control and serial scans as written below. Plan -Please admit to Neurocritical care (NCC), attending Dr. Santiago. A hemorrhagic stroke order set has been signed and held. ICH score 0 -Neurosurgery consulted. Appreciate recommendations -Check PT/INR/PTT and reverse any coagulopathy -Blood pressure goals with SBP less than 140 -Repeat a head CT [address] -No anticoagulation, antiplatelet therapy and pharmacological DVT prophylaxis until a follow up head CT/MRI has been completed to ensure stability of hemorrhage -Obtain brain MRI with and without contrast unless contraindicated -Swallow evaluation prior to any oral intake -ECHO to evaluate cardiac function -Lipid panel, LFTs and HgbA1c to evaluate secondary risk factors -Baseline EKG, if not done in ED. Continuous telemetry -PT, OT, Speech and social and human services assistant consults Other problems: Quality Self-Check Complexity. Obesity, class I Body mass index is 30.78 kg/m . - Follow with PCP for dietary and lifestyle modifications. Wound Documentation Any conditions listed below are present on admission unless otherwise specified. . This plan has been discussed with stroke atttending Dr. Arce and has been communicated to ED and NCCU teams. Kathrine Brown MD 08/03/2025 10:49 AM Other medical problems: # Left BG ICH in 2019 with residual dysarthria #HTN # Hepatitis C # Throat cancer Code Status: Full Code DVT prophylaxis: SCDs Diet: DIET NPO WITHOUT meds Patient and plan discussed with neurovascular attending, Dr. Arce. Kathrine Brown MD PGY-2, Neurology The author of this note does not necessarily reflect the provider on-call. Please page the on-call provider as listed in [employer] with urgent questions, as [facility] Secure Chat is not a reliable method of communication for urgent issues. Note to patient: The 21st Century Cures Act makes medical notes like these available to patients in the interest of transparency. However, be advised this is a medical document. It is intended as fmeb-ma-yyrx communication. It is written in medical language and may contain abbreviations or verbiage that are unfamiliar. It may appear blunt or direct. Medical documents are intended to carry relevant information, facts as evident, and the clinical opinion of the practitioner. [1] Past Medical History: Diagnosis Date Anxiety Back pain Essential hypertension, benign Hep C w/o coma, chronic ICH (intracerebral hemorrhage) 09/2020 aphasia, R sided weakness, numbness; CT/MR L basal ganglia, white matter ICH, tiny DWI lesion bilateral frontal white matter, microhemorrhage R basal ganglia, multiple in valentin; CTA no vascular malformation, severe tenosis proximal R ICA, moderate stenosis distally, moderate stenosis origin L vertebral, severe stenosis proximal R vertebral with focal occlusion Kidney stone Throat cancer [2] Past Surgical History: Procedure Laterality Date OSTEOTOMY MANDIBLE with plate SHOULDER SURGERY [3] [4] Current Facility-Administered Medications Medication Dose Route Frequency Provider Last Rate Last Admin hydrALAZINE (APRESOLINE) injection 10 mg 10 mg Intravenous Q10 MIN PRN Fernando Ugalde MD Labetalol (NORMODYNE) injection 20 mg 20 mg Intravenous Q10 MIN PRN Fernando Ugalde MD niCARdipine in sodium chloride (CARDENE) 40 mg-0.83/200 ml premix IV infusion 0-15 mg/hr Intravenous Continuous Fernando Ugalde MD 75 mL/hr at 08/03/25 1020 15 mg/hr at 08/03/25 1020 Current Outpatient Medications Medication Sig Dispense Refill lisinopril 40 MG tablet Take 1 tablet by mouth daily. 60 tablet 1 NIFEdipine 30 MG Tab SR 24 HR Take 1 tablet by mouth every 12 hours. 60 tablet 1 Cosigned by Alex Arce DO at 08/03/2025 3:06 PM EDT Associated attestation - Alex rAce DO - 08/03/2025 3:06 PM EDT I saw and independently examined the patient on 08/03/2025. I agree with the history, examination, and medical decision making as outlined. In addition, please see below. 64M w/ uncontrolled HTN, prior ICH. 08/03/25 awoke with headache, sweating, and feeling ill. I saw him on telestroke and no new focal deficits. Does have dysarthria from chronic deafness. CTH w/ posterior pontine infarct abutting the 4th ventricle but without intraventricular extension. Transferred to [facility] and admitted to NCCU in case of ventricular extension requiring EVD. Exam: somnolent, R gaze preference. Impaired lateral gaze in L eye. Deaf, reads lips to communicate. Chronic dysarthria. Hypertensive intracerebral hemorrhage Plan: Strict BP control and regular neuro check per NCCU. Will need to control BP prior to discharge. Alex Arce D.O. Vascular Neurology [facility] The stroke consult service (NV2) is a separate service M-F during daytime hours. On weekends/holidays, the stroke primary service (NV1) will be available to see new consults and to follow up on urgent issues. Otherwise, a stable consult patient will not be seen over the and will be seen by the NV2 team Monday. Please call the NV1 team if any questions over the weekend. Please page Neurovas Stroke Alert/Con F/U to reach the NV2 consult service documented in this encounter [facility] 08-03-2025 Emergency department Note Pt [place] via [facility] [place] with c/o hemorrhagic stroke. LKW 0000, woke up around 0600 with n/v, dizziness, slurred speech beyond baseline. Previous cva 4 years ago with residual slurred speech.. pt non compliant with meds, bp was high, given 10mg labetolol, started on nicardipine drip, arrives 10mg. [facility] 08-03-2025 Emergency department Note Pt arrives via [facility] from [place] with c/o hemorrhagic stroke. LKW 0000, woke up around 0600 with n/v, dizziness, slurred speech beyond baseline. Previous cva 4 years ago with residual slurred speech.. pt non compliant with meds, bp was high, given 10mg labetolol, started on nicardipine drip, arrives 10mg. Care Management Progress Note SW responded to level A stroke alert. Patient brought in by [employer] from [facility]. Emergency contacts: Amberly Guerrier, spouse [phone] SW is available for assistance while patient is in the ED. Alex FLORES, ANIMAL ECOLOGIST Medical Social Work Pt arrives via [facility]ef[facility] to CT scanner Bed: E037 Expected date: 08/03/25 Expected time: 12:00 AM Means of arrival: Air Comments: ED Staffing Note Chief complaint: ARASH Guerrier Jr. is a 64 y.o. year old male who presents as transfer [facility] with pontine and right basal ganglia hemorrhagic stroke. Pt is partially deaf. Pt speech is slurred but this is normal for him per family. Had dizziness nausea and vomiting. Not on thinners. HX HTN and has not been taking his meds. . LKW 2400 08/02/25. PMH, PSH, ROS, Family, and Social Hx unable to be completed due to patient condition. There were no vitals taken for this visit. DDx includes but is not limited to (includes acute threats to life and/or bodily function): CVA, TIA, metabolic, infectious Impression: Hemorrhagic stroke Plan: - Stroke Alert - Labs: CBC, chemistries, coags, LFTs, POC glucose. Platelets 54, will replete goal >100 - Imaging: CT Head w/o contrast, CTA - EKG - BP control - Neuro checks - Neurovascular consult - Neurosurgery consult ED Course: The patient arrived as a stroke alert. Labs and imaging were obtained. I discussed the case and plan of care with the neurovascular and neurosurgical team. They are in agreement. I would anticipate admission for further evaluation and management of neuro sx. Prior medical records were reviewed. All pertinent labs and imaging results were reviewed and interpreted by me. The patient was updated regarding findings, and was re-assessed during ED stay. This patient's history and physical exam were performed by the resident. On 08/03/2025 I saw and examined the patient. I discussed the history and examination with the resident and agree with the plan of care. In addition, I have fully participated in the care of this patient. I have reviewed all pertinent clinical information, including history, physical exam and medical decision making with the resident. Note, part of this documentation was created with [employer] voice recognition software. Attempts at proofreading were made, but errors may occasionally still occur. Fernando Ugalde MD 08/03/25 0944 EMERGENCY DEPARTMENT ENCOUNTER Patient: Esvin Guerrier Jr. : 1960 Primary Care Provider: No primary care provider on file. Date of Exam: 08/03/2025 CHIEF COMPLAINT No chief complaint on file. HPI Esvin Guerrier Jr. is a 64 y.o. male, with a PMHx of HTN, throat cancer, previous CVA with aphasia, who presents as a transfer from [facility] as a hemorrhagic stroke alert. The patient is not taking any blood thinners. LKW midnight. Patient presented to [facility] with dizziness, aphasia. Found to have right basal ganglia and pontine tegmentum hemorrhagic stroke. The patient has not been compliant with his home BP medications. PAST MEDICAL HISTORY Past Medical History[1] SURGICAL HISTORY Past Surgical History[2] CURRENT MEDICATIONS Current Outpatient Medications Medication Sig lisinopril 40 MG tablet Take 1 tablet by mouth daily. NIFEdipine 30 MG Tab SR 24 HR Take 1 tablet by mouth every 12 hours. ALLERGIES Allergies[3] Family history reviewed and noncontributory other than: No family history on file. Social history reviewed and noncontributory other than: Social History Socioeconomic History Marital status: Spouse name: Not on file Number of children: Not on file Years of education: Not on file Highest education level: Not on file Occupational History Not on file Tobacco Use Smoking status: Not on file Smokeless tobacco: Not on file Substance and Sexual Activity Alcohol use: Not on file Drug use: Not on file Sexual activity: Not on file Other Topics Concern Not on file Social History Narrative Not on file Social Drivers of Health Financial Resource Strain: Not on file Food Insecurity: Not on file Transportation Needs: Not on file Physical Activity: Not on file Stress: Not on file Social Connections: Not on file Personal Safety: Not on file Housing Stability: Not on file PHYSICAL EXAM Vital Signs: There were no vitals taken for this visit. Physical Exam Constitutional: General: He is not in acute distress. Appearance: Normal appearance. HENT: Head: Normocephalic. Eyes: General: No scleral icterus. Conjunctiva/sclera: Conjunctivae normal. Cardiovascular: Rate and Rhythm: Normal rate and regular rhythm. Pulses: Normal pulses. Heart sounds: Normal heart sounds. No murmur heard. No friction rub. No gallop. Pulmonary: Effort: Pulmonary effort is normal. No respiratory distress. Breath sounds: Normal breath sounds. No stridor. No wheezing or rales. Abdominal: General: Abdomen is flat. Bowel sounds are normal. There is no distension. Palpations: Abdomen is soft. Tenderness: There is no abdominal tenderness. Skin: General: Skin is warm and dry. Capillary Refill: Capillary refill takes less than 2 seconds. Neurological: Mental Status: He is alert. GCS: GCS eye subscore is 4. GCS verbal subscore is 5. GCS motor subscore is 6. Comments: Patient with dysphagia, some language comprehension issues. NIH of 3. Psychiatric: Mood and Affect: Mood normal. Behavior: Behavior normal. NIH: No results found for this visit on 08/03/25. CT HEAD WITHOUT CONTRAST (Results Pending) CT STROKE HEAD-STROKE ALERT ONLY (Results Pending) CT STROKE ANGIO BRAIN/NECK (Results Pending) There were no vitals filed for this visit. ED COURSE & MEDICAL DECISION MAKING Medical Decision Making Amount and/or Complexity of Data Reviewed Labs: ordered. Radiology: ordered. ECG/medicine tests: ordered. Risk Prescription drug management. The patient arrives with a controlled BP and in no acute distress. Given his known hemorrhagic stroke, will consult neurosurgery for further recommendations. Will likely replete platelets with goal >100 after repeat testing here. Esvin Guerrier Jr. is a 64 y.o. male, with a PMHx of HTN, throat cancer, previous CVA with aphasia, who presents with known hemorrhagic stroke. Differential includes but is not limited to ischemic stroke, hemorrhagic stroke, TIA, metabolic abnormalities, intracranial mass (malignancy, met, other), migraine, seizure, bells palsy, conversion disorder vs other unknown etiology. Initial ED workup will include POC glucose, EKG, troponin, CBC, BMP, hepatic function panel, UA with reflex to culture as well as CT head and CT angiogram. BP goal <140 SBP (hemorrhagic) BG goal 100-200 Will consult neurosurgery. ED Course as of 08/03/25 1034 Sun Aug 03, 2025 1031 Per neuro-critical care will admit to the NCCU at this time. 1034 PTINR-STROKE Normal Disposition Likely admission to NCCU A defwhf-kg-sdyy dictation tool was used in the production of this document and all attempts were made for proper editing but errors may occur. Felix Britton MD Resident 08/03/25 0954 [1] Past Medical History: Diagnosis Date Anxiety Back pain Essential hypertension, benign Hep C w/o coma, chronic ICH (intracerebral hemorrhage) 09/2020 aphasia, R sided weakness, numbness; CT/MR L basal ganglia, white matter ICH, tiny DWI lesion bilateral frontal white matter, microhemorrhage R basal ganglia, multiple in valentin; CTA no vascular malformation, severe tenosis proximal R ICA, moderate stenosis distally, moderate stenosis origin L vertebral, severe stenosis proximal R vertebral with focal occlusion Kidney stone Throat cancer [2] Past Surgical History: Procedure Laterality Date OSTEOTOMY MANDIBLE with plate SHOULDER SURGERY [3] No Known Allergies documented in this encounter [facility] 08-03-2025 Emergency department Note Care Management Progress Note SW responded to level A stroke alert. Patient brought in by [employer] from [facility]. Emergency contacts: Amberly Guerrier, spouse [phone] SW is available for assistance while patient is in the ED. Alex FLORES, ANIMAL ECOLOGIST Medical Social Work [facility] 08-03-2025 Emergency department Note Pt arrives via [facility] to CT scanner [facility] 08-03-2025 Emergency department Note Bed: E037 Expected date: 08/03/25 Expected time: 12:00 AM Means of arrival: Air Comments: [facility] 08-03-2025 Physician Emergency department Note ED Staffing Note Chief complaint: ARASH Guerrier Jr. is a 64 y.o. year old male who [facility] transfer [facility] with pontine and right basal ganglia hemorrhagic stroke. Pt is partially deaf. Pt speech is slurred but this is normal for him per family. Had dizziness nausea and vomiting. Not on thinners. HX HTN and has not been taking his meds. . LKW 2400 08/02/25. PMH, PSH, ROS, Family, and Social Hx unable to be completed due to patient condition. There were no vitals taken for this visit. DDx includes but is not limited to (includes acute threats to life and/or bodily function): CVA, TIA, metabolic, infectious Impression: Hemorrhagic stroke Plan: - Stroke Alert - Labs: CBC, chemistries, coags, LFTs, POC glucose. Platelets 54, will replete goal >100 - Imaging: CT Head w/o contrast, CTA - EKG - BP control - Neuro checks - Neurovascular consult - Neurosurgery consult ED Course: The patient arrived as a stroke alert. Labs and imaging were obtained. I discussed the case and plan of care with the neurovascular and neurosurgical team. They are in agreement. I would anticipate admission for further evaluation and management of neuro sx. Prior medical records were reviewed. All pertinent labs and imaging results were reviewed and interpreted by me. The patient was updated regarding findings, and was re-assessed during ED stay. This patient's history and physical exam were performed by the resident. On 08/03/2025 I saw and examined the patient. I discussed the history and examination with the resident and agree with the plan of care. In addition, I have fully participated in the care of this patient. I have reviewed all pertinent clinical information, including history, physical exam and medical decision making with the resident. Note, part of this documentation was created with [employer] voice recognition software. Attempts at proofreading were made, but errors may occasionally still occur. Fernando Ugalde MD 08/03/[address] [facility] 08-03-2025 Physician Emergency department Note EMERGENCY DEPARTMENT ENCOUNTER Patient: Esvin Guerrier Jr. : 1960 Primary Care Provider: No primary care provider on file. Date of Exam: 08/03/2025 CHIEF COMPLAINT No chief complaint on file. HPI Esvin Guerrier Jr. is a 64 y.o. male, with a PMHx of HTN, throat cancer, previous CVA with aphasia, who presents as a transfer from [facility] as a hemorrhagic stroke alert. The patient is not taking any blood thinners. LKW midnight. Patient presented to [facility] with dizziness, aphasia. Found to have right basal ganglia and pontine tegmentum hemorrhagic stroke. The patient has not been compliant with his home BP medications. PAST MEDICAL HISTORY Past Medical History[1] SURGICAL HISTORY Past Surgical History[2] CURRENT MEDICATIONS Current Outpatient Medications Medication Sig lisinopril 40 MG tablet Take 1 tablet by mouth daily. NIFEdipine 30 MG Tab SR 24 HR Take 1 tablet by mouth every 12 hours. ALLERGIES Allergies[3] Family history reviewed and noncontributory other than: No family history on file. Social history reviewed and noncontributory other than: Social History Socioeconomic History Marital status: Spouse name: Not on file Number of children: Not on file Years of education: Not on file Highest education level: Not on file Occupational History Not on file Tobacco Use Smoking status: Not on file Smokeless tobacco: Not on file Substance and Sexual Activity Alcohol use: Not on file Drug use: Not on file Sexual activity: Not on file Other Topics Concern Not on file Social History Narrative Not on file Social Drivers of Health Financial Resource Strain: Not on file Food Insecurity: Not on file Transportation Needs: Not on file Physical Activity: Not on file Stress: Not on file Social Connections: Not on file Personal Safety: Not on file Housing Stability: Not on file PHYSICAL EXAM Vital Signs: There were no vitals taken for this visit. Physical Exam Constitutional: General: He is not in acute distress. Appearance: Normal appearance. HENT: Head: Normocephalic. Eyes: General: No scleral icterus. Conjunctiva/sclera: Conjunctivae normal. Cardiovascular: Rate and Rhythm: Normal rate and regular rhythm. Pulses: Normal pulses. Heart sounds: Normal heart sounds. No murmur heard. No friction rub. No gallop. Pulmonary: Effort: Pulmonary effort is normal. No respiratory distress. Breath sounds: Normal breath sounds. No stridor. No wheezing or rales. Abdominal: General: Abdomen is flat. Bowel sounds are normal. There is no distension. Palpations: Abdomen is soft. Tenderness: There is no abdominal tenderness. Skin: General: Skin is warm and dry. Capillary Refill: Capillary refill takes less than 2 seconds. Neurological: Mental Status: He is alert. GCS: GCS eye subscore is 4. GCS verbal subscore is 5. GCS motor subscore is 6. Comments: Patient with dysphagia, some language comprehension issues. NIH of 3. Psychiatric: Mood and Affect: Mood normal. Behavior: Behavior normal. NIH: No results found for this visit on 08/03/25. CT HEAD WITHOUT CONTRAST (Results Pending) CT STROKE HEAD-STROKE ALERT ONLY (Results Pending) CT STROKE ANGIO BRAIN/NECK (Results Pending) There were no vitals filed for this visit. ED COURSE & MEDICAL DECISION MAKING Medical Decision Making Amount and/or Complexity of Data Reviewed Labs: ordered. Radiology: ordered. ECG/medicine tests: ordered. Risk Prescription drug management. The patient arrives with a controlled BP and in no acute distress. Given his known hemorrhagic stroke, will consult neurosurgery for further recommendations. Will likely replete platelets with goal >100 after repeat testing here. Esvin Guerrier Jr. is a 64 y.o. male, with a PMHx of HTN, throat cancer, previous CVA with aphasia, who presents with known hemorrhagic stroke. Differential includes but is not limited to ischemic stroke, hemorrhagic stroke, TIA, metabolic abnormalities, intracranial mass (malignancy, met, other), migraine, seizure, bells palsy, conversion disorder vs other unknown etiology. Initial ED workup will include POC glucose, EKG, troponin, CBC, BMP, hepatic function panel, UA with reflex to culture as well as CT head and CT angiogram. BP goal <140 SBP (hemorrhagic) BG goal 100-200 Will consult neurosurgery. ED Course as of 08/03/25 1034 Sun Aug 03, 2025 1031 Per neuro-critical care will admit to the NCCU at this time. 1034 PTINR-STROKE Normal Disposition Likely admission to NCCU A viusbf-zc-loml dictation tool was used in the production of this document and all attempts were made for proper editing but errors may occur. Felix Britton MD Resident 08/03/25 0954 [1] Past Medical History: Diagnosis Date Anxiety Back pain Essential hypertension, benign Hep C w/o coma, chronic ICH (intracerebral hemorrhage) 09/2020 aphasia, R sided weakness, numbness; CT/MR L basal ganglia, white matter ICH, tiny DWI lesion bilateral frontal white matter, microhemorrhage R basal ganglia, multiple in valentin; CTA no vascular malformation, severe tenosis proximal R ICA, moderate stenosis distally, moderate stenosis origin L vertebral, severe stenosis proximal R vertebral with focal occlusion Kidney stone Throat cancer [2] Past Surgical History: Procedure Laterality Date OSTEOTOMY MANDIBLE with plate SHOULDER SURGERY [3] No Known Allergies [facility] Work Phone: 08-03-2025 Discharge summary [facility] 08-03-2025 Radiology Diagnostic study note [facility] Imaging Services [address] [place] [address] STROKE Brain/Head without Cont MR#: [id number] Acct: [id number] Name: ESVIN GUERRIER Jr. Rep #: [id number] : 1960 M 64 From: Nhan Dyer MD PCP: Care Physician,No Primary Status: DEP ER Study:STROKE Brain/Head without Cont Date of Exam: 08/03/25 Exam# [id number] Ordering Dr: Steven Ramos MD ADDENDUM by Dr. Corazon Dyer MD on 08/03/25 at 0836 Intraparenchymal hemorrhage The critical findings in the findings and impression above were relayed directlyby Dr. Corazon Dyer by telephone to Dr. Lissette Ramos on 08/03/2025 at 7:45am with readback verification. Reading Location: [id number] 08/03/25 0837 Date cc: Dr. Lissette Ramos MD; No Primary Care Physician ~* Signed PROCEDURE: STROKE BRAIN/HEAD WITHOUT CONT 08/03/2025 REASON FOR EXAM: NEURO DEFICIT, ACUTE, STROKE SUSPECTED TECHNIQUE: Procedure Code: CTBR.ST Modality: CT Procedure: STROKE BRAIN/HEAD WITHOUT CONT Coronal and Sagittal reconstruction series were provided. One or more dose reduction techniques were used (e.g., Automated exposure control, adjustment of the mA and/or kV according to patient size, use of iterative reconstruction technique. RADIATION DOSE SUMMARY: DLP: 796.11 mGycm COMPARISON: CT head 04/19/2024. FINDINGS: Intraparenchymal hemorrhage centered in pontine tegmentum measuring approximally5 x 6 mm. An additional focus of hemorrhage in the right basal ganglia measuring up to 7 mm in length. No acute transcortical infarct. Nonspecific round hypodense focus in the left purcell radiata may reflect enlarged perivascular space, chronic, infarct, or cystic lesion. Confluent periventricular and subcortical white matter hypodensities compatible with severe chronic microvascular ischemic changes. No brain herniation. Global cerebral volume loss. No hydrocephalus. The basal cisterns are patent. The mastoid air cells are clear. The paranasal sinuses are predominantly clear. The calvarium appears intact. 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 No CT evidence of acute transcortical infarct. Reading Location: [facility] CC: Dr. Lissette Ramos MD; No Primary Care Physician ~ Vacuum Drier Tender: Signed [facility] 08-03-2025 Radiology Diagnostic study note [facility] Imaging Services [address] [place] [address] CTA Head AND Neck W/ Contrast MR#: [id number] Acct: [id number] Name: ESVIN GUERRIER Jr. Rep #: [id number] : 1960 M 64 From: Nhan Dyer MD PCP: Care Physician,No Primary Status: [facility] ER Study:CTA Head AND Neck W/ Contrast Date of E xam: 08/03/25 Exam# [id number] Ordering Dr: Steven Ramos MD PROCEDURE: CTA HEAD AND NECK W/ CONTRAST 08/03/2025 REASON FOR EXAM: STROKE TECHNIQUE: Procedure Code: CTCTA.HDNCK Modality: CT Procedure: CTA HEAD AND NECK W/ CONTRAST Multidetector CT angiography of the head and neck with intravenous contrast was performed with multiplaner and maximum intensity projection (MIP) reconstructions. CONTRAST: Isovue 370 VOLUME: 100 mL One or more dose reduction techniques were used (e.g., Automated exposure control, adjustment of the mA and/or kV according to patient size, use of iterative reconstruction technique). RADIATION DOSE SUMMARY: DLP: 752.72 mGycm COMPARISON: None available FINDINGS: CTA NECK: There is a standard three-vessel configuration of the aortic arch. Right carotid artery: Atheromatous plaque in the proximal right common carotid artery with a few punctate foci of calcifications. There are a few luminal irregularities at this region where there are areas of small outpouchings measuring up to 1.3 mm (axial image 180). Short-segment calcified atheromatous plaque in the right carotid bulb extending to the right internal carotid artery contributing to multifocal stenosis of the right cervical internal carotid artery including a 60-70% stenosis at the origin and 80-85% stenosis more distally. Left carotid artery: Intimal flap in the proximal left common carotid artery compatible with dissection (axial image 150). The adjacent filling defect likely reflect intramural thrombus contributing to 50-60% luminal stenosis. Atheromatous plaque in the carotid bulb extending to the internal carotid artery contributes to 60% focal stenosis at the origin of the left cervical internal carotid artery. Cervical vertebral arteries: Xosqhzey-lk-qomhpa multifocal stenosis of the proximal right cervical internal carotid artery. There is a focal dilatation of the right cervical carotid artery measuring up to4 mm in diameter at the level of C2 (axial image 293). The left cervical carotid artery is patent without high-grade stenosis. Left dominant vertebral artery. The left internal jugular vein is non-opacified. Assessment for carotid stenosis is performed utilizing NASCET criteria. NASCET carotid stenosis criteria: 0% - none, 1-49% - mild, 50-69% - moderate, 70-89% - severe, 90-99% - critical. % ICA stenosis = (normal distal cervical ICA diameter - narrowest cervical ICA diameter / normal distal cervical ICA diameter) x 100. CTA Head: Atherosclerotic calcification of the carotid siphons without significant luminalnarrowing. The petrous, cavernous, and intracranial internal carotid arteries are patent without high-grade stenosis. The proximal anterior cerebral arteries are patent without high-grade stenosis. The proximal middle cerebral arteries are patent without high-grade stenosis. The intradural vertebral arteries are patent without high-grade stenosis. The basilar artery is patent without high-grade stenosis. The proximal posterior cerebral arteries are patent without high-grade stenosis. No dominant intracranial aneurysm or high flow arteriovenous malformation is identified. Ancillary findings: Cervical spondylosis. Edentulous. CT/CTA Head AND Neck W/ Contrast IMPRESSION: 1. 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 Likely adjacent intramural thrombus contributing to 50-60% luminal stenosis. 2. Severe multifocal stenosis of the proximal right internal carotid artery secondary to atherosclerotic plaque. 3. Moderate focal stenosis at the origin of the left cervical internal carotid artery. 4. Okjpugbd-zf-rmtmyd multifocal stenosis of the proximal right cervical internal carotid artery. 5. 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 6. Non-opacification of the left internal jugular vein concerning for underlyingocclusion or thrombus. 7. No large vessel occlusion intracranially. The critical findings in the findings and impression above were relayed directlyby Dr. Corazon Dyer by telephone to Dr. Lissette Ramos on 08/03/2025 at 8:22 am with readback verification. Reading Location: [facility] CC: Dr. Lissette Ramos MD; No Primary Care Physician ~ Vacuum Drier Tender: Signed [facility] 08-22-2024 Note [facility] Medical Records Department [address] [place] [address] Discharge Summary 08/22/24 1222 MR#: [id number] Acct: [id number] Name: ESVIN GUERRIER Jr. Rep #: [id number] : 1960 63 From: Yessenia Molina DO [...] who presented to the emergency department at [facility] on 08/21/2024 for rectal bleeding. Evidently he is hard of hearing so daughter helped with a lot of history on presentation. He had had rectal bleeding for about 2 days. He denied abdominal pain and had not had any episodes like this previously. It was reported he had a colonoscopy in 2012 and had some polyps at that time [...] is at b (more content not included)... [facility] Discharge summary Note Date/Time June 28, 2023 10:30am [facility] Medical Records Department [address] [place] [address] Emergency Department Summary 06/28/23 MR#: [id number] Acct: [id number] Name: ESVIN GUERRIER Jr. Rep #:[id number] : 1960 62 From: Paresh Elam PCP: Dr. Sandro Zuniga MD Status:REG E R Location: ED [facility] History of Present Illness Chief Complaint: Lower Extremity Injury PFSH PFS Medical History CVA (cerebral vascular accident) Fractures [...] BEEN PERSONALLY REVIEWED AND INTERPRETED BY MYSELF. [facility] Narrative: Patient was hemodynamically stable (hypertension noted), [...] AND AT BEDTIME Primary Care Provider: Sandro Zuniga Referrals: Warren Vieyra DO [Med Staff - Active Staff] - Sandro Zuniga MD [Primary Care Provider] - Activity Restrictions/Additional [...] problems, contact your Primary Care Provider. Call [email or web address] Registry ([phone]) or report to the closest Emergency Room. Call 911 if necessary. 06/28/23 1138 <Electronically signed by Paresh Portillo DO> Cosigner Signature (if applicable): CC: Dr. Sandro Zuniga MD ~ Signed [facility] Work Phone: Discharge summary Author Lissette Ramos [facility] Note Date/Time August 03, 2025 8:36am [facility] Medical Records Department [address] [place] [address] Emergency Department Summary 08/03/25 MR#: [id number] Acct: [id number] Name: ESVIN GUERRIER Jr. Rep #:[id number] : 1960 64 From: Lissette Ramos MD PCP: Care Physician,No Primary Status :DEP ER Location: ED HPI History of Present Illness Chief Complaint: Stroke Alert Narrative Narrative: Patient is a 64-year-old male presenting to the emergency department as a strokealert. Patient has a past medical history of GI bleed, hypertensive urgency, hypertension noncompliant with medications, hepatitis C and remote history of throat cancer in remission. Patient per family did not take his blood pressure medication. Patient is hard of hearing, but can read lips. Primary history is obtained from family after evaluation of patient in the ambulance bay. They report that he has been feeling unwell the past few days. On further questioning of this, they state he has been tired. Went to bed around 11 PM, LKW. This morning when he woke up around 7 AM he was complaining of vomiting andhis bed was soaked with sweat per family. This is why EMS was called. Patientdenies headache, vision changes, numbness or weakness in his extremities, neck pain, chest pain, shortness of breath, abdominal pain. Not on any OAC. EMS gave 10 mg labetalol about 10 minutes prior to arrival. Prior similar symptoms: Yes PFSH PFSH Medical History Wears dentures Depression Bipolar disorder Alcohol use Difficulty swallowing Gastric reflux Shortness of breath on exertion Smoker Thrombocytopenia Peripheral neuropathy Fractures Neck fracture Throat cancer CVA (cerebral vascular accident) Hypertension Home Medications ?Medication ?Instructions ?Recorded ?Last Taken ?Type sildenafil 50 mg tablet (Viagra) 50 mg PO DAILY PRN er ectile 07/08/22 Unknown History dysfunction amlodipine 10 mg tablet 10 mg PO DAILY #30 tabs 08/13 Unknown Rx lisinopril 40 mg tablet 40 mg PO DAILY #30 tabs 08/1324 Unknown Rx Allergy/AdvReac Type Severity Reaction Status Date / Time No Known Allergies Allergy Verified 08/03/25 08:12 Family History Grandmother Hypertension maternal Grandfather Hypertension [...] substance use type: marijuana ROS ROS ED ROS Narrative see HPI EXAM Physical Exam Narrative Exam Narrative: Vital signs: Reviewed General: Alert and orientedx3. No acute distress HEENT: Head is normocephalic and atraumatic, sinuses nontender, pupils equal round and reactive. Nares are patent. Oropharynx and throat exams normal. Neck: Supple without lymphadenopathy nontender Cardiovascular: Regular rate and rhythm, no murmurs. No rubs or gallops. Normal S1 and S2 Respiratory: Clear to auscultation bilaterally. No wheezes, rales, rhonchi Abdominal: Soft and nontender. Normal bowel sounds. No guarding or rebound. Nonsurgical abdomen Extremities: No tenderness. No bruising. Normal range of motion. Normal sensation. Skin: No rash or redness. The rest of the physical exam is unremarkable Const Vital Signs: 08/03/25 07:09 08/03/25 07:19 08/03/25 07:20 Temperature 97.8 F Temperature Source Temporal Pulse Rate Respiratory Rate Blood Pressure 230/118 H Blood Pressure Mean 155 Pulse Ox Oxygen Delivery Method Room Air 08/03/25 07:28 08/03/25 07:42 08/03/25 07:46 Temperature Temperature Source Pulse Rate 59 L 57 L 60 Respiratory Rate 21 H 15 Blood Pressure 217/112 H 220/118 H 214/118 H Blood Pressure Mean 147 152 150 Pulse Ox 99 98 Oxygen Delivery Method 08/03/25 07:51 08/03/25 07:52 08/03/25 08:05 Temperature 97.4 F L Temperature Source Pulse Rate 60 58 L Respiratory Rate 18 19 H Blood Pressure 214/118 H 186/103 H Blood Pressure Mean 150 130 Pulse Ox 100 99 Oxygen Delivery Method Room Air 08/03/25 08:10 08/03/25 08:16 Temperature Temperature Source Pulse Rate 62 64 Respiratory Rate 17 16 Blood Pressure 180/98 H 186/96 H Blood Pressure Mean 125 126 Pulse Ox 98 Oxygen Delivery Method MDM MDM MDM Narrative Medical decision making narrative: Patient is a 64-year-old male presenting to the emergency department as a strokealert. Patient was seen and examined immediately on arrival in ambulance bay. NIH of 2 however patients family states that he does have some baseline dysarthria. Blood pressure on arrival of 230/118, pulse of 59, respiration 21, afebrile saturating 99% on room air. 10 mg of labetalol was already given by EMS about 10 minutes prior to arrival. Patient taken directly to CT. CT scans were reviewed by myself. There appears to be a hemorrhagic stroke in the cerebellum and in the right sided basal ganglion. Discussed CT and CTA with Dr. Dyer, radiologist. Radiology read with intraparenchymal hemorrhages in the pontine tegmentum and right basal ganglia. CTA shows findings compatible with proximal left common carotid artery dissection. Likely adjacent intramural thrombus contributing to 50-60% luminal stenosis. Additional findings can be seen in the radiology report. Cardene drip was started for SBP goal of 140. Discussed with Dr. Alex Arce, stroke neurologist on telerobot, who evaluated the patient and agreed with cardene drip and goal SBP. Will closely monitor mental status given brain stem stroke and concern for possible herniation/swelling. Head of bed elevated to above 30 degrees. No OAC to reverse. Did consider arterial line for close BP control, however do not have the arterial line set up here in the ED. Reevaluated patient. Repeat NIH stable at 2. GCS of 15. Critical care air transport from [facility] sent and patient accepted by Dr. Gonzáles in the ER. CBC with no leukocytosis and a normal hemoglobin. Chronic thrombocytopenia of 54. PT and PTT within normal limits. CMP with mild hypokalemia of 3.2, mild MONY. IV repletion ordered. Magnesium level ordered. Troponin within normal limits. EKG shows sinus bradycardia at a rate of 58 and aprolonged QT of 512. Zofran was already given on arrival for active vomiting, will hold off on any other antiemetics at this time. Patient states nausea and vomiting is much better. I did discuss findings with the patient's family and patient at bedside extensively. Explained the need for transport to higher level of care. They understand and are agreeable with the plan. At time of transport, magnesium levels, UA and urine drug screen pending. Reflex troponins were uncollected. Clinical impression: Hemorrhagic stroke Hypertensive emergency Hypokalemia Chronic thrombocytopenia History & Record Review Discussion w/independent historian: EMS personnel, Patient and Family Additional record(s) reviewed:: Prior ED visit and Prior labs Lab Data Attestation: I reviewed the patient's lab results. Labs: Laboratory Results - last 24 hr 08/03/25 06:58 WBC 7.3 RBC 5.25 Hgb 16.1 Hct 46.0 MCV 87.6 MCH 30.7 MCHC 35.0 RDW Std Deviation 41.9 RDW Coeff of Terell 13.2 Plt Count 54 L MPV 13.7 H Immature Gran % (Auto) 1.000 H Neut % (Auto) 52.1 Lymph % (Auto) 36.1 [place] % (Auto) 9.7 Eos % (Auto) 0.8 Baso % (Auto) 0.3 Absolute Neuts (auto) 3.8 Absolute Lymphs (auto) 2.64 Nucleated RBC % 0 PT 13.0 INR 1.0 APTT 25.5 Sodium 140 Potassium 3.2 L Chloride 101 Carbon Dioxide 24.2 Anion Gap 15 BUN 20 H Creatinine 1.34 H Estim Creat Clear Calc 66.17 Est GFR (MDRD) Non-Af 59 L BUN/Creatinine Ratio 15.1 Glucose 139 H Calcium 9.5 Total Bilirubin 0.60 AST 37 ALT 44 Alkaline Phosphatase 79 Troponin T High Sens 15 Total Protein 8.4 Albumin 4.4 Globulin 4.0 Albumin/Globulin Ratio 1.1 Radiography Diagnostic Testing: Clinical Impression(s) from Imaging Studies Brain CT 08/03/25 07:16 IMPRESSION: Intraparenchymal hemorrhages in the pontine tegmentum and right basal ganglia. No CT evidence of acute transcortical infarct. Reading Location: [id number] Head/Neck CTA 08/03/25 07:17 IMPRESSION: 1. 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 Likely adjacent intramural thrombus contributing to 50-60% luminal stenosis. 2. Severe multifocal stenosis of the proximal right internal carotid artery secondary to atherosclerotic plaque. 3. Moderate focal stenosis at the origin of the left cervical internal carotid artery. 4. Zobimvwk-mv-tgjyfa multifocal stenosis of the proximal right cervical internal carotid artery. 5. 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 6. Non-opacification of the left internal jugular vein concerning for underlyingocclusion or thrombus. 7. No large vessel occlusion intracranially. The critical findings in the findings and impression above were relayed directlyby Dr. Corazon Dyer by telephone to Dr. Lissette Ramos on 08/03/2025 at 8:22 am with readback verification. Reading Location: [facility] Management Discussion w/another healthcare provider: Manufacturing Project Manager and Radiologist Critical Care Time Critical Care Time: Yes Critical care time (excluding procedures): 30-74 minutes Discharge Plan Triage Chief Complaint: Stroke Alert ED Provider: Lissette Ramos Dx/Rx/DC Orders Prescriptions: No Action sildenafil [Viagra] 50 mg tablet 50 mg PO DAILY PRN (Reason: erectile dysfunction) Rx Instructions: administer 30 minutes to 4 hours before activity amlodipine 10 mg Tablet 10 mg PO DAILY Qty: 30 1RF lisinopril 40 mg tablet 40 mg PO DAILY Qty: 30 1RF Primary Care Provider: Care Physician,No Primary Referrals: Care Physician,No Primary [Primary Care Provider, Medical] Print Language: Micronesian Disposition Disposition: Acute Care Hospital Discharge Location: [facility] Discharge Date/Time: 08/03/25 08:36 NIHSS NIHSS 1a. Level of Consciousness: 0 - Alert; keenly responsive 1b. LOC Questions: 0 - Answers BOTH questions correctly 1c. LOC Commands: 0 - Performs BOTH tasks correctly 2. Best Gaze: 0 - Normal 3. Visual: 0 - No visual loss 4. Facial Palsy: 0 - Normal symmetrical movements 5a. Left Arm: 0 - No drift; arm holds 90 (or 45) degrees for full 10 seconds 5b. Right Arm: 0 - No drift; arm holds 90 (or 45) degrees for full 10 seconds 6a. Left Le - No drift; leg holds 30-degree position for full 5 seconds 6b. Right Le - No drift; leg holds 30-degree position for full 5 seconds 7. Limb Ataxia: 0 - Absent 8. Sensory: 0 - Normal; no sensory loss 9. Best Language: 1 - Afhd-vj-lwsycriz aphasia; 10. Dysarthria: 1 = Site-xo-uavtvypn dysarthria; 11. Extinction and Inattention: 0 - No abnormality Total: 2 Stroke Questions Stroke Team Activated: Yes Reviewed Inclusion/Exclusion criteria: Yes IV Thrombolytic Administered: No What to do if you have Problems For any increased pain, shortness of breath, bleeding, nausea or vomiting, chestpain, or any unexpected problems, contact your Primary Care Provider. Call [email or web address] Registry ([phone]) or report to the closest Emergency Room. Call 911 if necessary. 08/03/25 6361 <Electronically signed by Lissette Ramos MD> Cosigner Signature (if applicable): CC: No Primary Care Physician ~ Signed [facility] Work Phone: Evaluation note* Diagnosis Onset Date Resolution Status Thrombocytopenia chronic [facility] Work Phone: Evaluation noteNo assessment information available [facility] Work Phone: Evaluation note* Diagnosis ICH (intracerebral hemorrhage)- Primary Intracerebral hemorrhage Hemorrhagic stroke Intracerebral hemorrhage Nontraumatic intracerebral hemorrhage, unspecified cerebral location, unspecified laterality Cerebrovascular accident (CVA), unspecified mechanism Chronic hepatitis C without hepatic coma Essential hypertension Unspecified essential hypertension HCV (hepatitis C virus) Unspecified viral hepatitis C without hepatic coma Thrombocytopenia (Low Platelets) Thrombocytopenia, unspecified [facility] Additional Instructions Thank you for [...] care physician for further outpatient evaluation and management.[facility] Work Phone: Reason for referral (narrative)No reason for referral information availableWSumma [facility] Work Phone: Rettjw for visit Narrative* Auth/Cert Specialty Diagnoses / Procedures Referred By Car t Referred To Contact Diagnoses Hemorrhagic stroke Hemorrhagic stroke Mateo Santiago MD, PhD [address] [place] [address] Phone: tel: fax: [facility] [address] [place] [address] Referral ID Status Reason Start Date Expiration Date Visits Re quested Visits Authorized [id number] [address] [facility] Chief Complaint and Reason for Visit Chief Complaint NEW-THROMBOCYTOPENIA BONE MARROW BX Reason for Visit Thrombocytopenia Chief Complaint LEG Chief Complaint Admit Date stroke August 03, 2025 7:08am Family History No Family History Records Found Relationship Condition Age at Onset Recorded Date/T soo grandmother Hypertension Unknown grandfather Hypertension Unknown Cerebrovascular accident (CVA) Unknown Advance Directives No Advanced Directives Records Found Advance Directive Response Recorded Date/ Time Advance Directives No July 02, 2015 2:04am Living Will No August 23 7:24pm Power of Bushel Girl No August 23, 2021 7:24pm Advance Directive Response Recorded Date/ Time Advance Directives No July 02, 2015 2:04am Living Will No June 28 3 10:36am Power of Bushel Girl No June 28, 023 10:36am Date Activated Date Inactivated Comments 10/06/2020 2:30 PM Advance Directive Response Recorded Date/ Time Do you have a Healthcare Power of Bushel Girl? No August 03, 2025 7:21am Advance Directives No July 02, 2015 2:04am Summary Purpose Additional Source Comments Goals (unrecognized section and content) Goals may be documented in a n alternate sectionGoals may be documented in an alternate sectionGoals may be documented in an alternate sectionGoals may be documented in an alternate section Care Teams (unrecognized sec tion and content) Team Status: Active Member Role Status Dates No Primary Care Physician Family Provider Active Dr. Sandro Zuniga MD Primary Care Provider Active Team Status: Inactive Member Role Status Dates Dr. Sandro Zuniga MD Primary Care Provider, Attending Provider Active Team Status: Inactive Member Role Status Dates Dr. Sanrdo Zuniga MD Primary Care Provider Active Dr. Paresh Portillo DO Emergency Provider Active Team Status: Active Member Role/Relationship Status Dates No Primary Care Physician Primary care physician Activ e Team Status: Inactive Member Role/Relationship Status Dates No Primary Care Physician Primary care physician Activ e Start: August 03, 2025 End: August 03, 2025 Dr. Lissette Ramos MD Attending physician Active Start: August 03, 2025 End: August 03, 2025 Dr. Lissette Ramos MD Emergency Departmen t Physician Active Start: August 03, 2025 End: August 03, 2025 Scheduled Active and Recently Administ ered Medications (unrecognized section and content) Medication Order 08/06/2025 08/07/2025 08/08/2025 Atorvastatin (LIPITOR) tablet 40 mg 40 mg, Oral, DAILY AT BEDTIME, First dose on Mon08/05/25 at 2100, Until Discontinued 1926 (Given - Provider: Lili Shine, CARLITOS) 2111 (Given - Provider: Lashawn Gonzalez RN) Enoxaparin Sodium (LOVENOX) injection 40 mg(Linked Group 1) 40 mg, Subcutaneous, DAILY, First dose on Mon08/05/25 at 0915, Until Discontinued, For SUBCUTANEOUS route ONLY: alternate injection sites between left and right abdominal wall, pinching location and avoiding area around navel. If unable to use abdominal sites, may use the front or side of thighs., Indications: DVT/PE prophylaxis 0820 (Given - Provider: Low Brasher RN) 0843 (Given - Provider: Sierra Mckeon, CARLITOS) 0813 (Given - Provider: Mia Zaragoza, CARLITOS) hydroCHLOROthiazide (HYDRODIURIL) tablet 25 mg 25 mg, Oral, DAILY, First dose on Mon08/08/25 at 1345, Until Discontinued 1345 (Given - Provider: Mia Zaragoza, CARLITOS) Losartan (COZAAR) tablet 100 mg 100 mg, Oral, DAILY, First dose (after last modification) on Mon08/07/25 at 0900, Until Discontinued 0843 (Given - Provider: Sierra Mckeon RN) 0815 (Given - Provider: Mia Zaragoza, RN) Losartan (COZAAR) tablet 25 mg (CANCELED) 25 mg, Oral, DAILY, First dose on Mon08/05/25 at 0915, Until Discontinued 0820 (Given - Provider: Low Brasher RN) Losartan (COZAAR) tablet 25 mg (COMPLETED) 25 mg, Oral, ONCE, 1 dose, On Mon08/06/25 at 1015 0952 (Given - Provider: Low Brasher RN) Losartan (COZAAR) tablet 50 mg (COMPLETED) 50 mg, Oral, ONCE, 1 dose, On Mon08/06/25 at 1930 1930 (Given - Provider: Lili Shine, CARLITOS) Melatonin tablet 3 mg 3 mg, Oral, DAILY AT BEDTIME, First dose on Mon08/06/25 at 0415, Until Discontinued 0416 (Given - Provider: iLli Shine, CARLITOS)192 (Given - Provider: Lili Shine RN) 2111 (Given - Provider: Lashawn Gonzalez RN) nicotine (NICODERM CQ) 7 MG/24HR patch 1 patch(Linked Group 2) 1 patch, Transdermal, EVERY 24 HOURS, First dose on Mon08/03/25 at 1515, Until Discontinued, Apply patch to hairless skin site on upper body or arm. Rotate sites for each application. Do not cut or alter patch. Remove patch after duration of 16-24 hours. To dispose, fold adhesive ends together. 1424 (Patch Removed - Provider: Low Brasher RN)1425 (Not Given - Provider: Low Brasher RN - Reason: Patient/family refused) 1424 (Not Given - Provider: Sierra Mckeon RN - Reason: Patient/family refused) 1605 (Not Given - Provider: Mia Zaragoza RN - Reason: Patient/family refused) NIFEdipine (PROCARDIA XL) tablet XL 30 mg (CANCELED) 30 mg, Oral, DAILY, First dose on Mon08/07/25 at 1230, Until Discontinued, Slow release product. Do not chew or crush. 1230 (Given - Provider: Sierra Mckeon RN) 0814 (Given - Provider: Mia Zaragoza RN) NIFEdipine (PROCARDIA XL) tablet XL 30 mg (COMPLETED) 30 mg, Oral, ONCE, 1 dose, On Mon08/08/25 at 0915, Slow release product. Do not chew or crush. 1024 (Given - Provider: Mia Zaragoza RN) NIFEdipine (PROCARDIA XL) tablet XL 60 mg 60 mg, Oral, DAILY, First dose (after last modification) on 08/09/25 at 0900, Until Discontinued, Slow release product. Do not chew or crush. Senna (SENOKOT) tablet 8.6 mg(Linked Group 3) 8.6 mg, Oral, DAILY, First dose on 08/03/25 at 1300, Until Discontinued 0820 (Given - Provider: Low Brasher RN) 0843 (Not Given - Provider: Sierra Mckeon RN - Reason: Other - Comment: Pt with large BM last night) 0814 (Not Given - Provider: Mia Zaragoza RN - Reason: Patient with symptoms) VERIFY LINKED PATCH PLACEMENT(Linked Group 2) Other, EVERY 12 HOURS, First dose on 08/03/25 at 2100, Until Discontinued, Confirm continued adhesion of nicotine 7 mg/24hr patch at documented site. 08 (Patch Verify - Provider: Low Brasher RN)2100 (Canceled Entry - Provider: Low Brasher RN) 1002 (Canceled Entry - Provider: Sierra Mckeon RN - Comment: Pt refusing patch. No patch in place currently.)2113 (Patch Verify - Provider: Lashawn Gonzalez RN - Comment: patch off) 814 (Canceled Entry - Provider: Mia Zaragoza RN - Comment: refused yesterday) PRN Medication Order 08/06/2025 08/07/2025 08/08/2025 Acetaminophen (TYLENOL) tablet 650 mg (CANCELED) 650 mg, Oral, EVERY 4 HOURS NEEDED, Starting on 08/03/25 at 1222, Until Mónica 08/07/25 at 2128, Severe Pain, Oral temp > 99.5, Maximum dose of acetaminophen is 4000 mg from all sources in 24 hours. 2111 (Given - Provider: Lashawn Gonzalez RN) Acetaminophen (TYLENOL) tablet 650 mg(Linked Group 4) 650 mg, Oral, EVERY 4 HOURS NEEDED, Starting on Mónica 08/07/25 at 2127, Until Mon08/08/25 at 1832, Severe Pain, Moderate Pain, Mild Pain, Oral temp > 99.5, Maximum dose of acetaminophen is 4000 mg from all sources in 24 hours. hydrALAZINE (APRESOLINE) injection 10 mg(Linked Group 5) 10 mg, Intravenous, EVERY 1 HOUR NEEDED, Starting on Mon08/05/25 at 0842, Until Mon08/08/25 at 1832, Other, SBP > 160 mmHg with HR < 60 bpm, Use as initial dose. Use if Heart Rate LESS THAN 60 beats per minute. Higher dose may be administered if lower dose was previously documented as ineffective 10 minutes after administration and did not result in adverse effects (HR>90). 2252 (Given - Provider: Lili Shine RN)2353 (See Alternative - Provider: Lili Shine RN) 0539 (Given - Provider: Lili Shine RN)1120 (Given - Provider: Sierra Mckeon, CARLITOS) hydrALAZINE (APRESOLINE) injection 20 mg(Linked Group 5) 20 mg, Intravenous, EVERY 1 HOUR NEEDED, Starting on Mon08/05/25 at 0842, Until Mon08/08/25 at 1832, Other, SBP > 160 mmHg with HR < 60 bpm, Use if Heart Rate LESS THAN 60 beats per minute. Higher dose may be administered if lower dose was previously documented as ineffective 10 minutes after administration and did not result in adverse effects (HR>90). Decrease back to lower dose if patient has adverse effects, or no PRN used in previous 3 hours. 2252 (See Alternative - Provider: Lili Shine RN)2353 (Given - Provider: Lili Shine RN) 0539 (See Alternative - Provider: Lili Shine RN)1120 (See Alternative - Provider: Sierra Mckeon, CARLITOS) hydrOXYzine HCl (ATARAX) tablet 25 mg 25 mg, Oral, DAILY AT BEDTIME NEEDED, Starting on Mónica 08/07/25 at 0412, Until Mon08/08/25 at 1832, Insomnia 2112 (Given - Provider: Lashawn Gonzalez RN) Labetalol (NORMODYNE) injection 10 mg(Linked Group 6) 10 mg, Intravenous, EVERY 1 HOUR NEEDED, Starting on Tu08/05/25 at 0842, Until Mon08/08/25 at 1832, SBP > 160 mmHg with HR >60 bpm, Use as initial dose. Use if Heart Rate GREATER THAN 60 beats per minute. Higher dose may be administered if lower dose was previously documented as ineffective 10 minutes after administration and did not result in adverse effects (HR<60). For vials: labetalol should be treated as a SINGLE USE VIAL. Discard remaining contents after one use. 0027 (Given - Provider: Lili Shine RN)0420 (Given - Provider: Lili Shine RN)0820 (Given - Provider: Low Brasher RN)1522 (See Alternative - Provider: Low Brasher RN)1652 (See Alternative - Provider: Low Brasher RN)192 (See Alternative - Provider: Lili Shine RN)215 (See Alternative - Provider: Lili Shine RN) Labetalol (NORMODYNE) injection 20 mg(Linked Group 6) 20 mg, Intravenous, EVERY 1 HOUR NEEDED, Starting on Mon08/05/25 at 0842, Until Mon08/08/25 at 1832, SBP > 160 mmHg with HR >60 bpm, Use if Heart Rate GREATER THAN 60 beats per minute. Higher dose may be administered if lower dose was previously documented as ineffective 10 minutes after administration and did not result in adverse effects (HR<60). Decrease back to lower dose if patient has adverse effects, or no PRN used in previous 3 hours. For vials: labetalol should be treated as a SINGLE USE VIAL. Discard remaining contents after one use. 0027 (See Alternative - Provider: Lili Shine RN)0420 (See Alternative - Provider: Lili Shine RN)0820 (See Alternative - Provider: Low Brasher RN)1522 (Given - Provider: Low Brasher RN)1652 (Given - Provider: Low Brasher RN)192 (Given - Provider: Lili Shine RN)215 (Given - Provider: Lili Shine RN) Ondansetron (ZOFRAN) tablet 4 mg(Linked Group 7) 4 mg, Oral, EVERY 4 HOURS NEEDED, Starting on 08/03/25 at 1226, Until Mon08/08/25 at 1832, Nausea / Vomiting Ondansetron 4mg/2ml (ZOFRAN) injection 4 mg(Linked Group 7) 4 mg, Intravenous, EVERY 4 HOURS NEEDED, Starting on Mon08/03/25 at 1226, Until Mon08/08/25 at 1832, Nausea / Vomiting Polyethylene glycol (MIRALAX) packet 17 g(Linked Group 8) 17 g, Oral, DAILY NEEDED, Starting on Mon08/03/25 at 1222, Until Mon08/08/25 at 1832, Constipation If No Bowel Movement in 48 Hours Linked Groups Order Group 1: Enoxaparin Sodium (LOVENOX) injection 40 mgJump to med 40 mg, Subcutaneous, DAILY, First dose on Mon08/05/25 at 0915, Until Discontinued, For SUBCUTANEOUS route ONLY: alternate injection sites between left and right abdominal wall, pinching location and avoiding area around navel. If unable to use abdominal sites, may use the front or side of thighs., Indications: DVT/PE prophylaxis And PLATELET COUNT - baseline (CANCELED) Routine, ONE TIME, On Mon08/05/25 at 0844, For 1 occurrence, Use existing specimen And PLATELET COUNT (CANCELED) Routine, EVERY 3 DAYS AM LAB, First occurrence on Mon08/08/25 at 0500, Until Specified, New collection Group 2: nicotine (NICODERM CQ) 7 MG/24HR patch 1 patchJump to med 1 patch, Transdermal, EVERY 24 HOURS, First dose on Mon08/03/25 at 1515, Until Discontinued, Apply patch to hairless skin site on upper body or arm. Rotate sites for each application. Do not cut or alter patch. Remove patch after duration of 16-24 hours. To dispose, fold adhesive ends together. And VERIFY LINKED PATCH PLACEMENTJump to med Other, EVERY 12 HOURS, First dose on Mon08/03/25 at 2100, Until Discontinued, Confirm continued adhesion of nicotine 7 mg/24hr patch at documented site. Group 3: Senna (SENOKOT) tablet 8.6 mgJump to med 8.6 mg, Oral, DAILY, First dose on Mon08/03/25 at 1300, Until Discontinued Or Senna (SENOKOT) tablet 8.6 mg (CANCELED) 8.6 mg, Per NG tube, DAILY, First dose on Mon08/03/25 at 1300, Until Discontinued Group 4: Acetaminophen (TYLENOL) tablet 650 mgJump to med 650 mg, Oral, EVERY 4 HOURS NEEDED, Starting on Mon08/07/25 at 2127, Until Mon08/08/25 at 1832, Severe Pain, Moderate Pain, Mild Pain, Oral temp > 99.5, Maximum dose of acetaminophen is 4000 mg from all sources in 24 hours. Group 5: hydrALAZINE (APRESOLINE) injection 10 mgJump to med 10 mg, Intravenous, EVERY 1 HOUR NEEDED, Starting on Mon08/05/25 at 0842, Until Mon08/08/25 at 1832, Other, SBP > 160 mmHg with HR < 60 bpm, Use as initial dose. Use if Heart Rate LESS THAN 60 beats per minute. Higher dose may be administered if lower dose was previously documented as ineffective 10 minutes after administration and did not result in adverse effects (HR>90). Or hydrALAZINE (APRESOLINE) injection 20 mgJump to med 20 mg, Intravenous, EVERY 1 HOUR NEEDED, Starting on Mon08/05/25 at 0842, Until Mon08/08/25 at 1832, Other, SBP > 160 mmHg with HR < 60 bpm, Use if Heart Rate LESS THAN 60 beats per minute. Higher dose may be administered if lower dose was previously documented as ineffective 10 minutes after administration and did not result in adverse effects (HR>90). Decrease back to lower dose if patient has adverse effects, or no PRN used in previous 3 hours. Group 6: Labetalol (NORMODYNE) injection 10 mgJump to med 10 mg, Intravenous, EVERY 1 HOUR NEEDED, Starting on Mon08/05/25 at 0842, Until Mon08/08/25 at 1832, SBP > 160 mmHg with HR >60 bpm, Use as initial dose. Use if Heart Rate GREATER THAN 60 beats per minute. Higher dose may be administered if lower dose was previously documented as ineffective 10 minutes after administration and did not result in adverse effects (HR<60). For vials: labetalol should be treated as a SINGLE USE VIAL. Discard remaining contents after one use. Or Labetalol (NORMODYNE) injection 20 mgJump to med 20 mg, Intravenous, EVERY 1 HOUR NEEDED, Starting on Mon08/05/25 at 0842, Until Mon08/08/25 at 1832, SBP > 160 mmHg with HR >60 bpm, Use if Heart Rate GREATER THAN 60 beats per minute. Higher dose may be administered if lower dose was previously documented as ineffective 10 minutes after administration and did not result in adverse effects (HR<60). Decrease back to lower dose if patient has adverse effects, or no PRN used in previous 3 hours. For vials: labetalol should be treated as a SINGLE USE VIAL. Discard remaining contents after one use. Group 7: Ondansetron 4mg/2ml (ZOFRAN) injection 4 mgJump to med 4 mg, Intravenous, EVERY 4 HOURS NEEDED, Starting on 08/03/25 at 1226, Until 08/08/25 at 1832, Nausea / Vomiting Or Ondansetron (ZOFRAN) tablet 4 mgJump to med 4 mg, Oral, EVERY 4 HOURS NEEDED, Starting on 08/03/25 at 1226, Until 08/08/25 at 1832, Nausea / Vomiting Group 8: Polyethylene glycol (MIRALAX) packet 17 gJump to med 17 g, Oral, DAILY NEEDED, Starting on 08/03/25 at 1222, Until 08/08/25 at 1832, Constipation If No Bowel Movement in 48 Hours Or Polyethylene glycol (MIRALAX) packet 17 g (CANCELED) 17 g, Per NG tube, DAILY NEEDED, Starting on 08/03/25 at 1222, Until 08/04/25 at 0838, Constipation If No Bowel Movement in 48 Hours (unrecognized sect ion and content) No Status Records FoundNo Status Records FoundNo Status Records FoundNo Status Records Found INFORMATION SOURCE (unrecogn ized section and content) DATE CREATED AUTHOR 08/16/2025 [facility] DATE CREATED AUTHOR AUTHOR'S ORGANIZ ATION 08/21/2025 [facility] DATE CREATED AUTHOR AUTHOR'S ORGANIZ ATION 08/21/[address] [facility] DATE CREATED AUTHOR AUTHOR'S ORGANIZ ATION 09/01/2025 [facility] FOR RECORDS PERTAINING TO PATIENTS WHO ARE [...] BE BASED ON THE PRIMARY CLINICAL RECORDS. [employer] [facility]. provides no warranty or guarantee of the accuracy or completeness of information in this document.
[2025-09-09 22:10] VITALS: BP 148/80; PULSE 72; RESP 18; TEMP 36.2; O2SAT 99
== END 2025-09-09 22:14 | disposition home or self-care (01) ==
PROVIDERS: Emergency Provider Emergency Medicine; Visit Provider Emergency Medicine
DX: R55 Syncope and collapse (principal); Z87.891 Personal history of nicotine dependence; F12.90 Cannabis use, unspecified, uncomplicated; B19.20 Unspecified viral hepatitis C without hepatic coma; I10 Essential (primary) hypertension; K21.9 Gastro-esophageal reflux disease without esophagitis
CPT/HCPCS: 93005; 99283

== ENCOUNTER 2025-09-16 14:43 | Emergency (ER) | payer MEDICARE, SELFPAY ==
[2025-09-16] VITALS (7 sets, daily range): BP systolic 107–151; BP diastolic 70–109; PULSE 69–93; RESP 16–22; TEMP 36.5–36.6; O2SAT 94–100; BMI 29.1
--- NOTE | 2025-09-16 14:55 | EDS_ITS ---
HPI History of Present Illness Chief Complaint: Alt LOC Informant: patient Onset/Context/Timing Onset: Today and Hours (1) Context: Sudden Onset Timing: Continuous Quality: Altered mental status Location: Generalized Worsened by: Nothing Relieved by: Nothing Narrative Narrative: Patient presents with altered mental status that was noticed today. Daughter states patient was last known well 1 hour prior to arrival. Daughter states that he was doing well and she left the house. Daughter states that when she came home he was nonverbal. Daughter states this began rather suddenly. Daughter states patient had 4 25 mg Gummies earlier today. Daughter states the patient was recently seen at [facility] for intracranial bleeding. Daughter states the patient signed out AMA from that stay. Daughter states that the patient was approved for hospice today. Patient has a history of hepatitis C. Patient is nonverbal. [facility] Medical History Brainstem stroke Hepatitis C Wears dentures Depression Bipolar disorder Alcohol use Difficulty swallowing Gastric reflux Shortness of breath on exertion Smoker Thrombocytopenia Peripheral neuropathy Fractures Neck fracture Throat cancer CVA (cerebral vascular accident) Hypertension Home Medications ?Medication ?Instructions ?Recorded ?Last Taken ?Type atorvastatin 40 mg tablet 40 mg PO QHS 09/16/25 History hydrochlorothiazide 25 mg tablet 25 mg PO DAILY 09/16/25 History losartan 100 mg tablet 100 mg PO DAILY BLOOD PRESSU RE 09/16/25 09/16/25 History nifedipine 60 mg tablet,extended 60 mg PO DAILY 09/16/25 History release Allergy/AdvReac Type Severity Reaction Status Date / Time No Known Allergies Allergy Verified 09/09/25 21:19 Family History Grandmother Hypertension maternal Grandfather Hypertension paternal CVA (cerebral vascular accident) paternal Social History household members: spouse number of children: 5 current occupational status: disabled Smoking Status: Former smoker Tobacco: How many years used: 30 alcohol intake: current alcohol intake frequency: 3 or more drinks per day Alcohol type: beer and hard liquor substance use type: marijuana ROS ROS ED Constitutional Constitutional ED: Denies chills or fever(s) Eyes Eyes: Denies blurry vision or change in vision ENT ENT ED: Denies rhinorrhea or sore throat Cardiovascular Cardiovascular: Denies chest pain or palpitations Respiratory/Chest Respiratory/Chest: Denies cough or dyspnea Gastrointestinal Gastrointestinal: Denies nausea or vomiting Genitourinary Genitourinary ED: Denies dysuria or hematuria Musculoskeletal Musculoskeletal: Denies back pain or neck pain Integumentary Denies abscess or rash Neurologic Neurologic: Denies headache(s) or weakness Allergic/Immunologic Allergic/Immunologic ED: Denies mouth swelling or urticaria EXAM Physical Exam Const Vital Signs: 09/16/25 14:45 09/16/25 15:43 09/16/25 16:00 Temperature 97.9 F Temperature Source Oral Pulse Rate 71 93 79 Respiratory Rate 20 H 21 H 20 H Blood Pressure 107/70 142/109 H 139/80 H Blood Pressure Mean 82 120 99 Pulse Ox 100 100 99 Oxygen Delivery Method Room Air Nasal Cannula Room Air Oxygen Flow Rate (L/min) 4 09/16/25 17:00 09/16/25 18:00 09/16/25 19:00 Temperature Temperature Source Pulse Rate 69 82 80 Respiratory Rate 19 H 20 H 22 H Blood Pressure 136/85 H 114/83 H 130/79 H Blood Pressure Mean 102 93 96 Pulse Ox 100 95 94 Oxygen Delivery Method Room Air Room Air Room Air Oxygen Flow Rate (L/min) Positive well nourished and well developed Constitutional Narrative: BMI is 29.1. General Appearance ED: well developed and pallor HEENT Reports dry mucous membranes Mouth ED: Yes dry mucous membranes Mouth: dry mucous membranes Eyes PERRL Neck supple and no JVD Resp Auscultation: diminished lung sounds diffuse Cardio regular rate GI non-distended Palpation: soft Neuro Sensorium / Orientation: lethargic Motor Exam: general weakness Skin General Skin Exam: pallor MDM MDM MDM Narrative Medical decision making narrative: Differential diagnosis includes stroke, intracranial bleeding, hepatic encephalopathy, sepsis, cardiac dysrhythmia, cardiac ischemia, dehydration, electrolyte abnormality, urinary tract infection, pneumonia, bronchitis, and coagulopathy. EKG will be obtained to assess for cardiac dysrhythmia and cardiac ischemia. CT scan of the brain will be obtained to assess for intracranial bleeding and stroke. Chest x-ray will be obtained to assess for pneumonia and bronchitis. CBC will be obtained to assess for leukocytosis and anemia. Comprehensive metabolic profile will be obtained to assess for hepatic function, renal function, and electrolyte abnormality. Ammonia level will be obtained to assess for hepatic encephalopathy. PT with INR and PTT will be obtained to assess for coagulopathy. High-sensitivity troponin will be obtained to assess for cardiac ischemia. 2-hour repeat high-sensitivity troponin will be obtained to assess for ongoing cardiac ischemia. Urinalysis will be obtained to assess for urinary tract infection and hematuria. Serum lactate will be obtained to assess for sepsis. History & Record Review Additional record(s) reviewed:: Prior inpatient record, Prior outpatient record, Prior ED visit and Prior labs Lab Data Attestation: I reviewed the patient's lab results. Lab results narrative: CBC was reviewed. Platelets were low at 60. This was improved from previous result. The remainder was within normal limits. Comprehensive metabolic profile was reviewed. BUN was slightly elevated at 29 and creatinine was 1.83. This is slightly increased compared with previous results. PT with INR and PTT were reviewed and were within normal limits. Serum lactate was reviewed and was normal at 1.6. Serum ammonia level was reviewed and was normal at 26.9. Initial high-sensitivity troponin was reviewed and was normal at 14. 2-hour re peat high-sensitivity troponin was reviewed and was normal at 13. Labs: Laboratory Results - last 24 hr 09/16/25 09/16/25 09/16/25 15:00 15:21 15:30 WBC 9.3 RBC 4.61 Hgb 14.0 Hct 40.3 MCV 87.4 MCH 30.4 MCHC 34.7 RDW Std Deviation 41.8 RDW Coeff of Terell 13.1 Plt Count 60 L MPV 15.1 H Immature Gran % (Auto) 1.000 H Neut % (Auto) 51.8 Lymph % (Auto) 37.4 Elbert % (Auto) 9.0 Eos % (Auto) 0.6 Baso % (Auto) 0.2 Absolute Neuts (auto) 4.8 Absolute Lymphs (auto) 3.49 Nucleated RBC % 0 PT 13.9 INR 1.0 APTT 25.3 Sodium 139 Potassium 3.7 Chloride 99 Carbon Dioxide 26.0 Anion Gap 13 BUN 29 H Creatinine 1.83 H Estim Creat Clear Calc 48.68 L Est GFR (MDRD) Non-Af 40 L BUN/Creatinine Ratio 15.7 Glucose 170 H Lactic Acid 1.6 Calcium 9.6 Total Bilirubin 0.46 AST 34 ALT 57 H Alkaline Phosphatase 58 Ammonia 26.9 Troponin T High Sens 14 D Troponin T Hi Sens 2 Hr Total Protein 8.1 Albumin 4.4 Globulin 3.7 Albumin/Globulin Ratio 1.2 POC Glucose 147 H 09/16/25 17:17 WBC RBC Hgb Hct MCV MCH MCHC RDW Std Deviation RDW Coeff of Terell Plt Count MPV Immature Gran % (Auto) Neut % (Auto) Lymph % (Auto) Elbert % (Auto) Eos % (Auto) Baso % (Auto) Absolute Neuts (auto) Absolute Lymphs (auto) Nucleated RBC % PT INR APTT Sodium Potassium Chloride Carbon Dioxide Anion Gap BUN Creatinine Estim Creat Clear Calc Est GFR (MDRD) Non-Af BUN/Creatinine Ratio Glucose Lactic Acid Calcium Total Bilirubin AST ALT Alkaline Phosphatase Ammonia Troponin T High Sens Troponin T Hi Sens 2 Hr 13 Total Protein Albumin Globulin Albumin/Globulin Ratio POC Glucose Radiography Chest X-Ray - ED: 1 View, Read by ED Physician, Read by Radiologist and No Acute Disease Diagnostic Testing: Clinical Impression(s) from Imaging Studies Brain CT 09/16/25 15:04 IMPRESSION: No acute intracranial abnormality. Reading Location: [facility] Chest X-Ray 09/16/25 15:37 IMPRESSION: Pulmonary findings as above. Reading Location: [facility] CT scan of the brain was obtained. There is no acute intracranial abnormality. This was interpreted by the radiologist and was also independently reviewed by myself. Portable 1 view chest x-ray was obtained. On my independent interpretation, lung gutierrez are are hypoinflated. There is normal cardiac silhouette. Bony thorax is normal. There is no acute process noted. Radiologist also interpreted the x-ray and agrees. EKG Initial EKG: Attestation: I personally reviewed and interpreted this EKG as follows: Interpretation: Sinus Rhythm (62) and No Acute Injury Pattern Comments: EKG was obtained. On my independent interpretation, it showed a normal sinus rhythm with a rate of 62. NM interval, QRS interval, and QTc intervals were all normal. [place] was normal. There are no acute ST or T wave changes. Prior EKG tracings: available for review Prior: Unchanged (09/09/2025) Treatment and Re-Evaluation :: Patient was given IV fluids. Patient was feeling better on reevaluation. Patient's mental status returned to baseline. Patient wants to go home. Eliot ochoa was unable to provide a urine specimen. Patient was instructed to follow- up with his primary care physician in 5 to 7 days. Patient was instructed to return if worse in any way. Patient and family understood and were agreeable with the plan. All questions were answered. Discharge Plan Triage Chief Complaint: Alt LOC ED Provider: Denis Haney Dx/Rx/DC Orders Clinical Impression: Altered mental status, Cannabis use disorder Instructions: ED ALOC Prescriptions: No Action atorvastatin 40 mg tablet 40 mg PO QHS hydrochlorothiazide 25 mg tablet 25 mg PO DAILY nifedipine 60 mg tablet extended release 60 mg PO DAILY losartan 100 mg tablet 100 mg PO DAILY Primary Care Provider: Denis Leyva Referrals: Care Physician,No Primary [Non-Staff, Medical] Denis Leyva MD [Primary Care Provider, Family Practice] - 3-5 Days Print Language: [place] Disposition Disposition: Home, Self Care
[2025-09-16] MEDS: 0.9% Normal Saline (1000mL) 1,000 ML 1000 ML IV (15:04)
--- NOTE | 2025-09-16 15:04 | CT_ITS ---
PROCEDURE: BRAIN/HEAD WITHOUT CONTRAST 09/16/2025 REASON FOR EXAM: ALTERED MENTAL STATUS TECHNIQUE: Procedure Code: CTBR Modality: CT Procedure: BRAIN/HEAD WITHOUT CONTRAST Coronal and Sagittal reconstruction series were provided. One or more dose reduction techniques were used (e.g., Automated exposure control, adjustment of the mA and/or kV according to patient size, use of iterative reconstruction technique. RADIATION DOSE SUMMARY: CTDlvol: 44 mGy DLP: 796 mGycm COMPARISON: 08/03/2025. FINDINGS: Moderate global parenchymal atrophy. Periventricular white matter hypodensity likely representing severe chronic microvascular ischemia. Left centrum semiovale chronic lacunar infarction. No evidence of acute hemorrhage or infarction. The paranasal sinuses and mastoid air cells are clear. The calvarial vault and skull base are intact. CT/Brain/Head without Contrast IMPRESSION: No acute intracranial abnormality. Reading Location: [id number]
[2025-09-16 15:21] LABS: Hematocrit 40.3 % (40-54); Hemoglobin 14.0 g/dL (13.0-16.5); Immature Granulocytes Count 0.090 X10^3/uL (0.0-0.0); Mean Corp Hgb Conc 34.7 g/dL (32-36); Mean Corpuscular Volume 87.4 fL (80-94); Mean Platelet Vol. 15.1 fl (6.2-12.0); NRBC Flagged by Analyzer 0 % (0-5); POSITIVE COUNT YES; Platelet Count 60 K/mm3 (150-450); RBC Distribution Width CV 13.1 % (11.6-14.6); RBC Distribution Width SD 41.8 fl (35.1-43.9); Red Blood Count 4.61 M/mm3 (4.6-6.2); White Blood Count 9.3 K/mm3 (4.4-11.0)
[2025-09-16 15:34] LABS: Prothrombin Time (Protime)PT. 13.9 SECONDS (11.7-14.9)
[2025-09-16 15:35] LABS: Partial Thromboplast Time 25.3 Seconds (24.1-36.2)
--- NOTE | 2025-09-16 15:37 | RAD_ITS ---
PROCEDURE: CHEST 1 VIEW (PORTABLE) 09/16/2025 REASON FOR EXAM: ALTERED MENTAL STATUS TECHNIQUE: Frontal view of the chest. COMPARISON: 10/04/2020. FINDINGS: The heart borders are unremarkable. The lungs are hypoaerated limiting assessment. Faintly increased reticular prominence which may be due to hypoaeration, mild edema, or pneumonitis. No acute osseous abnormalities. RAD/Chest 1 View (Portable) IMPRESSION: Pulmonary findings as above. Reading Location: [id number]
[2025-09-16 16:08] LABS: Ammonia 26.9 umol/L (16-60)
[2025-09-16 16:08] LABS: AST(SGOT) 34 U/L (<=37); Alanine Aminotransfer ALT/SGPT 57 U/L (<=46); Albumin, Serum 4.4 g/dL (3.4-4.8); Alkaline Phosphatase 58 U/L (40-129); Anion Gap 13 (5-15); BUN 29 mg/dL (4-19); BUN/Creat Ratio 15.7 RATIO (10-20); Calcium,Total 9.6 mg/dL (7.6-11.0); Carbon Dioxide 26.0 mmol/L (21.0-32.0); Chloride 99 mmol/L (98-108); Estimated Creatinine Clearance 48.68 ml/min (50-250); Globulin 3.7 g/dL (2.2-4.2); Glucose 170 mg/dL (70-99); Potassium 3.7 mmol/L (3.3-5.1); Troponin T High Sensitivity 14 ng/L (<=22)
[2025-09-16 17:54] LABS: Troponin T High Sens 2 HR 13 ng/L (<=22)
[2025-09-16 20:23] LABS: Mucous, Urine 0 SEEN /hpf (<or=2+); Squamous Epithelial Cells - UA 0 SEEN /hpf (0-5)
[2025-09-16 20:24] LABS: Color, Urine Yellow (Yellow); Glucose, Dipstick Normal (Normal); Ketone-Dipstick Negative (Negative); Leukocyte Esterase-Dipstick 100 /ul (Negative); Nitrite-Dipstick Negative (Negative); Occult Blood-Urine Negative /ul (Negative); Protein-Dipstick 15 mg/dl (Negative); Specific Gravity, Urine 1.010 (1.002-1.030); Urine Bilirubin Dipstick Negative (Negative)
[2025-09-16 20:33] LABS: Red Blood Cells-Urine 0-5 SEEN /hpf (0-5)
== END 2025-09-16 20:26 | disposition home or self-care (01) ==
PROVIDERS: Emergency Provider Emergency Medicine; PCP Family Medicine; Visit Provider Emergency Medicine
DX: R41.82 Altered mental status, unspecified (principal); F31.9 Bipolar disorder, unspecified; F12.90 Cannabis use, unspecified, uncomplicated; D69.6 Thrombocytopenia, unspecified; I10 Essential (primary) hypertension; Z86.19 Personal history of other infectious and parasitic diseases; Z86.73 Personal history of transient ischemic attack (TIA), and cerebral infarction without residual deficits; Z79.899 Other long term (current) drug therapy; Z87.891 Personal history of nicotine dependence
CPT/HCPCS: 70450; 71045; 80053; 81001; 82140; 82962; 83605; 84484; 85025; 85610; 85730; 87040; 87086; 87088; 93005; 96360; 96361; 99285; A4216

== ENCOUNTER → 2025-09-24 | Outpatient (CLI) | payer MEDICARE, SELFPAY ==
[2025-09-24 13:19] LABS: Barbiturate Urine NEGATIVE (< 200 ng/mL); Benzodiazepine Urine NEGATIVE (< 200 ng/mL); PCP Urine NEGATIVE (< 25 ng/mL); THC Urine PRESUMPTIVE POSITIVE (< 50 ng/mL)
== END | disposition home or self-care (01) ==
LOC: LAB 12:14
PROVIDERS: PCP Family Medicine; Referring Provider Anesthesiology Pain Medicine; Visit Provider Anesthesiology Pain Medicine
DX: F11.20 Opioid dependence, uncomplicated (principal)
CPT/HCPCS: 80307